=== PATIENT | male | born 1945 | race Caucasian/White ===

== ENCOUNTER 2020-08-12 05:43 | Observation (INO) | payer MEDICARE, SELFPAY ==
--- NOTE | ~2020-08-12 | XR_ITS ---
EXAMINATION: XR knee LT min 4V DATE: 08/12/2020 06:33 INDICATION: Left knee pain. Fall. TECHNIQUE: 4 views of left knee were obtained. COMPARISON: None. FINDINGS: Bone alignment is normal. No fracture. There is mild tricompartmental osteoarthritis. No kn ee joint effusion. There are loose bodies in the knee joint. There is anterior knee soft tissue swell ing. IMPRESSION: 1. Mild left knee osteoarthritis. 2. Left knee joint loose bodies. 3. Anterior knee soft tissue swelling. Reviewed, dictated and finalized at location A. DISEASE MANAGEMENT
--- NOTE | ~2020-08-12 | CT_ITS ---
EXAMINATION: CT brain wo con DATE: 08/12/2020 06:41 INDICATION: Frequent falls. TECHNIQUE: Computed tomography (CT) of the head was performed without intravenous contrast. The mA wa s adjusted according to patient size. Iterative reconstruction technique was employed. The dose-lengt h product was 681.00 mGy-cm. COMPARISON: Head CT 08/19/2018 FINDINGS: There are scattered areas of low attenuation in the cerebral white matter. There is no intr acranial hemorrhage, acute infarction, or abnormal intracranial mass lesion. The ventricles are warner l in size. There is mild mucosal thickening in the ethmoid sinuses. There are likely changes of ocula r lens replacement surgeries. The mastoid air cells are normal. IMPRESSION: 1. Mild nonspecific cerebral white matter disease, which likely represents chronic small vessel ische laurie disease. Reviewed, dictated and finalized at location A. CLERK IMPRESSION: 1. Mild nonspecific cerebral white matter disease, which likely represents chronometer tester beulah small vessel ischemic disease.
--- NOTE | ~2020-08-12 | US_ITS ---
EXAMINATION: US art doppler w press TRISHA MASCORRO EXAM DATE: 08/13/2020 09:50 INDICATION: weak pulse, left leg pain. TECHNIQUE: Segmental pressures and plethysmographic and Doppler waveforms of the brachial and lower e xtremity arteries were obtained. There is no prior study for comparison. FINDINGS: Right and left brachial artery pressures of 175 mm Hg and 174 mm Hg, respectively, are concordant (no rmal difference <= 30 mmHg). RIGHT LEG: The ankle-brachial index (ANGELA) is 0.96 (normal >= 0.9-1). The great toe-brachial index (TBI) is 0.49 (normal >= 0.65). The lower extremity ratios, segmental pressure gradients as follows; Dorsalis pedis: 0.96 (168 mmHg). Posterior tibial: Could not obtain ( mmHg). (Normal gradients <= 20-30 mmHg between adjacent levels on the same leg or the same levels on the two legs). Arterial waveforms are monophasic posterior tibial, otherwi se biphasic. LEFT LEG: The ankle-brachial index (ANGELA) is 0.79 (normal >= 0.9-1). The great toe-brachial index (TBI) is 0.36 (normal >= 0.65). The lower extremity ratios, segmental pressure gradients as follows; Dorsalis pedis: 0.79 (139 mmHg). Posterior tibial: 0.72 (126 mmHg). (Normal gradients <= 20-30 mmHg between adjacent levels on the same leg or the same levels on the two legs). Arterial waveforms are biphasic common femoral, monophasic below. IMPRESSION: 1. Right ankle-brachial index 0.96, normal. 2. Left ankle-brachial index 0.79, mildly decreased. 3. Segmental pressures as above. Reviewed, dictated and finalized at location A. STANT MERCHANDISER
--- NOTE | ~2020-08-12 | US_ITS ---
EXAMINATION: US venous doppler LE EXAM DATE: 08/13/2020 09:49 INDICATION: Edema to the left lower extremity. Left leg pain. TECHNIQUE: Multiple grayscale, color flow and Doppler images of the lower extremity deep venous syste ms bilaterally were obtained and reviewed. There is no prior study for comparison. FINDINGS: RIGHT SIDE Common femoral: --------Nonocclusive thrombus. Profunda femoral: ------- Normal. Femoral: Normal. Popliteal: Normal. Posterior tibial: --------- Normal. Peroneal: Normal. Gastrocnemius: Not visualized. Soleus: Not visualized. Greater saphenous: ----- Normal. Lesser saphenous: ------ Not visualized. LEFT SIDE Common femoral: -------- Normal. Profunda femoral: ------- Normal. Femoral: Normal. Popliteal: Normal. Posterior tibial: --------- Normal. Peroneal: Normal. Gastrocnemius: Not visualized. Soleus: Not visualized. Greater saphenous: ----- Normal. Lesser saphenous: ------ Not visualized. IMPRESSION: 1. Positive for right common femoral nonocclusive DVT. 2. No left DVT. I discussed this case with 3rd medical nurse caring for patient, Sj at 08/13/2020 10:03 PRODUCT MANUFACTURING PROFESSIONAL Reviewed, dictated and finalized at location A. UCT MANUFACTURING PROFESSIONAL IMPRESSION: 1. Positive for right common femoral nonocclusive DVT. 2. No left DVT. I discussed this case with 3rd medical nurse caring for patient, Sj at 2019 10:03 PRODUCT MANUFACTURING PROFESSIONAL
--- NOTE | 2020-08-12 05:39 | ED.EXTPRO ---
HPI - Extremity Problem General Chief complaint: Fall Stated complaint: knee pain Source: patient and EMS Mode of arrival: EMS Limitations: no limitations History of Present Illness HPI Narrative: Patient is a 75-year-old male who presents for evaluation of fall with left knee injury. Patient with intermittent weakness over the past several weeks, more frequent falls. Patient fell yesterday and has had knee swelling and pain since the fall. Difficulty moving the knee and difficulty ambulating due to left knee pain. Pain is dull, aching in nature. Patient denies hip pain. He denies head injury or neck pain. He denies chest pain, palpitations, shortness of breath. No recent fever. No recent medication changes. Per EMS personnel, patient and live in very poor living conditions, grandmother called to the house multiple times for the patient's falls, have inquired about having home health to help with patient. At this point, seems a independent living would not be safest option for patient per EMS. Patient denies any redness overlying the knee space. He denies history of gout. Related Data Home Medications Medication Instructions Recorded Confirmed atorvastatin 08/12/20 carbidopa-levodopa tablet 08/12/20 metoprolol succinate PO 08/12/20 primidone 08/12/20 ropinirole mg 08/12/20 venlafaxine mg PO 08/12/20 Allergies Allergy/AdvReac Type Severity Reaction Status Date / Time No Known Allergies Allergy Unknown Verified 08/12/20 07:24 Review of Systems Review of Systems: Narrative: CONSTITUTIONAL: Denies fever, chills, or sweats. EYES: Denies visual changes ENT: Denies rhinorrhea, congestion, sore throat, or otalgia. CARDIOVASCULAR: Denies chest pain, palpitations, or edema. RESPIRATORY: Denies cough or dyspnea. GASTROINTESTINAL: Denies abdominal pain, nausea, vomiting, or diarrhea. GENITOURINARY: Denies dysuria or hematuria. SKIN: Denies rash or itching. MUSCULOSKELETAL: Denies back pain, reports left knee pain NEUROLOGIC: Denies headache, numbness, or weakness. [facility] Past Medical History Medical History (Updated 08/12/20 @ 06:51 by Lillie Armijo MD) Anxiety Depression Diverticulitis GI bleed Heart attack Hyperlipidemia Hypertension Malignant melanoma Surgical History Surgical History (Updated 08/12/20 @ 05:54 by Lillie Armijo MD) H/O cardiac catheterization History of tonsillectomy Social History Social History (Updated 08/12/20 @ 05:54 by Lillie Armijo MD) Smoking status: Former smoker Alcohol intake: never Substance use: never Living arrangements: with family Gender identity (if verbalized by the patient): Male Exam Narrative: Exam Narrative: GENERAL: Awake, alert, conversant, somewhat disheveled appearing HEAD: Normocephalic, atraumatic. EYES: PERRLA and EOMI. ENT: Nares clear, no rhinorrhea or epistaxis. Mucous membranes moist. NECK: Supple. CHEST: No respiratory distress, breathing even and non labored HEART: Regular rate, sinus rhythm ABDOMEN:Non distended, non tender EXTREMITIES: Decreased range of motion in the left knee due to pain. There is quite significant edema and effusion present. Mild lateral left knee ecchymosis. Mild tenderness overlying the patella. No erythema. No blistering or areas of drainage. No wounds. Patient has limited flexion due to edema, can complete active extension without limitation. Pelvis stable to anterior lateral compression. There is pain with internal and external rotation of the left knee. Negative anterior drawer sign. SKIN: Warm, dry, no rash. NEURO:No focal deficits. Alert and oriented x3 Course Vital Signs Vital signs: Vital Signs Temperature 36.3 C L 08/12/20 05:43 Pulse Rate 71 08/12/20 05:43 Respiratory Rate 14 08/12/20 05:43 Blood Pressure 149/86 H 08/12/20 05:43 Pulse Oximetry 97 08/12/20 05:43 Temperature 36.3 C L 08/12/20 05:43 Pulse Rate 68 08/12/20 06:57 Respirato
[2020-08-12 05:43] VITALS: BP 149/86; PULSE 71; RESP 14; TEMP 36.3; O2SAT 97
--- NOTE | 2020-08-12 05:48 | ECG_ITS ---
Measurements Intervals [place] Rate: 71 P: 56 [place]: 214 QRS: -68 QRSD: 134 T: -10 QT: 429 QTc: 468 Interpretive Statements SINUS RHYTHM WITH FIRST DEGREE AV BLOCK LEFT BUNDLE BRANCH BLOCK BASELINE ARTIFACT- I, II, AVR, AVF, V1-V2 ABNORMAL ECG Electronically Signed On 08-12-2020 8:01:02 SIDEROGRAPHER by Dom Murphy D.O.
[2020-08-12 06:17] LABS: Basophils Absolute Auto 0.1 K/mm3 (0.0-0.1); Basophils Percent Auto 0.6 % (0.2-1.2); Eosinophils Absolute Auto 0.3 K/mm3 (0-0.3); Eosinophils Percent Auto 4.1 % (0-4.4); Hemoglobin 10.3 g/dL (14.0-18.0); Immature Granulocyte Absolute 0.04 K/mm3 (0.00-0.031); Immature Granulocyte Percent A 0.5 % (0-0.5); Lymphocytes Absolute Auto 1.27 K/mm3 (0.9-3.2); Lymphocytes Percent Auto 16.1 % (18.3-44.2); Mean Corpuscular HGB Conc 31.2 g/dl (32-36); Mean Corpuscular Hemoglobin 31.5 pg (26-34); Mean Corpuscular Volume 100.9 fl (80-100); Mean Platelet Volume 10.2 fl (7.4-10.4); Monocytes Absolute Auto 0.5 K/mm3 (0.1-0.6); Monocytes Percent Auto 6.2 % (2.6-8.5); Neutrophils Absolute Auto 5.7 K/mm3 (1.3-6.7); Neutrophils Percent Auto 72.5 % (45.5-73.1); Platelet Count Result 221 k/mm3 (150-375); Red Blood Count 3.27 M/mm3 (4.6-6.20); Red Cell Distribution Width 13.7 % (11.5-14.5); White Blood Count 7.9 K/mm3 (4.5-10.0)
[2020-08-12 06:20] VITALS: BP 152/70; PULSE 67; RESP 18; O2SAT 99
--- NOTE | 2020-08-12 06:23 | PC.NURSE ---
pt to CT via stretcher
[2020-08-12 06:31] LABS: Anion Gap 8 mmol/L (8-16); Blood Urea Nitrogen 33 mg/dL (9-20); Calcium 8.4 mg/dL (8.4-10.2); Carbon Dioxide 28 mmol/L (22-30); Chloride 109 mmol/L (98-107); Estimated Glomerular Filt Rate 49; Glucose 115 mg/dL (75-110); Potassium 4.5 mmol/L (3.4-5.0); Sodium 145 mmol/L (137-145)
[2020-08-12 06:32] LABS: Prothrombin Time 13.8 Seconds (11.1-14.7)
[2020-08-12 06:33] LABS: Partial Thromboplastin Time 32.5 SECONDS (22.3-36.8)
[2020-08-12 06:57] VITALS: BP 125/65; PULSE 68; RESP 18; O2SAT 99
[2020-08-12 07:49] LABS: Add Urine Microscopic? YES; Appearance Urine Clear (Clear); Bilirubin Urine Negative (Negative); Blood Urine Negative (Negative); Color Urine Yellow (Yellow); Glucose Urine UA Negative (Negative); Ketones Urine Negative (Negative); Leukocyte Esterase Ur Negative LEU/UL (Negative); Nitrate Urine Negative (Negative); Protein Urine 1+ mg/dL (Negative); Specific Grav Ur 1.024 (1.001-1.035); Squamous Epithelial Cell Urine Rare /hpf (Few); Urobilinogen Urine Negative mg/dL (<2.0); WBC Urine 0-3 /hpf
--- NOTE | 2020-08-12 08:35 | PCCCNOTE ---
Addendum entered by Pearl Cordova RN 08/12/20 10:24: Faxed auth request to [facility] that included PT youngal. Faxed referrals to [facility] and [facility]. Original Note: Spoke to pt and his about rehab to help him get stronger. Pt choose [facility] and [facility] to send request for skilled care. PT coming in room to eval and make recommendations.
[2020-08-12 09:25] VITALS: BP 177/80; PULSE 72; RESP 20; TEMP 36.7; O2SAT 97
--- NOTE | 2020-08-12 11:23 | ADMGEN ---
This patient, Saad Yarbrough, was admitted to [facility] Surg Room 317-01. Patient/family oriented to hospital policies and general routines including ID bracelet, bed and alarms, visiting hours, pain management, procedures, bathroom and other care routines, personal items, smoking policy, room service/diet, and visiting hours. Information on how to activate the Rapid Response Team has been discussed. Patient/Family are encouraged to report perceived risks to care and to ask questions if they do not understand what they are told or what they should do.
[2020-08-12 14:00] VITALS: BP 112/55; PULSE 67; RESP 22; TEMP 37.1; O2SAT 96
--- NOTE | 2020-08-12 15:55 | PM.IMHP ---
H&P: HPI History of Present Illness Date/Time: 08/12/20 15:55 Chief complaint: traumatic left knee effusion,frequent falls Narrative: Saad Yarbrough is a 75 year old male Who has a history of Parkinson's. The patient lives with his in independent Living. The patient stated that he has had frequent falls recently. He feels like his legs give out when he tries to walk at times. He said typically happens when he gets up in the middle night goes to the bathroom. The patient stated he has been having a pain in his left calf. The patient told me that he told his primary care doctor and the primary care doctor told him to get some [id number] lidocaine patches but they did help for very long. A CT of the brain was performed in the emergency room it was read as mild nonspecific cerebral white matter disease, which likely represents chronic small vessel ischemic disease. X-ray of the left knee was read as mild left knee osteoarthritis. Left knee joint loose bodies. Anterior knee soft tissue swelling. Approximately 10 cc of blood was drained from the left knee hematoma. The patient has had intermittent periods of weakness over the last couple weeks. He denies hitting his head he thinks that he landed on his left knee. The patient does see the neurologist here for his Parkinson's. He states that he has been taking his Parkinson's medication as prescribed. H&H is 10.3 and 33.0 with macrocytic anemia. Creatinine 1.40. Patient is admitted as observation date of service 08/12/2020 Review of Systems Review of Systems: All systems reviewed & are unremarkable except as noted in HPI and below Constitutional: Constitutional: Reports as per HPI and Reports no additional constitutional complaints Eyes: Eyes: Reports as per HPI and Reports no additional eye complaints ENT: Reports system reviewed and no additional complaints, except as documented and Reports Normal hearing present Cardiovascular: Cardiovascular: Reports no additional cardiovascular complaints Respiratory: Respiratory: Reports no additional respiratory complaints and Reports no additional respiratory complaints Gastrointestinal: Gastrointestinal: Reports as per HPI and Reports no additional gastrointestinal complaints Musculoskeletal: Musculoskeletal: Reports no additional musculoskeletal complaints Integumentary/Breasts: Skin/Breast: Reports system reviewed and no additional complaints, except as docu and Reports as per HPI Neurologic: Reports system reviewed and no additional complaints, except as documented, Reports as per HPI and Reports Normal hearing present Psychiatric: Psychiatric: Reports no additional psychiatric complaints and Reports as per HPI Endocrine: Endocrine: Reports no additional endocrine complaints Hematologic/Lymphatic: Hematologic/Lymphatic: Reports no additional hematologic/lymphatic complaints Allergic/Immunologic: Allergic/Immunologic: Reports no additional allergic/immunologic complaints PMFSH Past Medical History Medical History (Updated 08/12/20 @ 16:33 by Renee David NP) Anemia Anxiety Anxiety and depression Depression Diverticulitis GI bleed Heart attack History of myocardial infarction History of poliomyelitis Hyperlipidemia Hypertension Macular degeneration disease Malignant melanoma Parkinsons Surgical History Surgical History (Updated 08/12/20 @ 16:06 by Renee David NP) H/O cardiac catheterization H/O heart artery stent x2 History of colonoscopy History of tonsillectomy Family History Family History Mother CHF (congestive heart failure) Father Malignant neoplasm of prostate Leukemia Social History Social History (Updated 08/12/20 @ 16:08 by Renee David NP) Social History: the patient used to smoke until he met his and then he quit. He used to smoke anywhere from a pack to half a pack a day but quit approximately 14 years a
--- NOTE | 2020-08-12 19:41 | ECG_ITS ---
Measurements Intervals [place] Rate: 73 P: 51 [place]: 248 QRS: -60 QRSD: 130 T: 12 QT: 414 QTc: 458 Interpretive Statements SINUS RHYTHM WITH FIRST DEGREE AV BLOCK LEFT AXIS DEVIATION LEFT BUNDLE BRANCH BLOCK ABNORMAL ECG Electronically Signed On 08-13-2020 8:42:11 CONVERTING TECHNICIAN by Dom Murphy D.O.
[2020-08-12] MEDS: rOPINIRole HCL 1 MG TABLET 4 MG PO (20:53)
[2020-08-12] MEDS: PRIMIDONE 250 MG TABLET 500 MG PO (20:54)
[2020-08-12 22:00] VITALS: BP 144/65; PULSE 72; RESP 20; TEMP 37.1; O2SAT 94
--- NOTE | 2020-08-12 22:51 | PC.NURSE ---
Patient moved to room 305. Report given to Pamela ROBLES and all questions answered. Handed off care to Pamela ROBLES at this time.
[2020-08-13 00:53] LABS: SARS-CoV-2 RNA PCR Negative
[2020-08-13] MEDS: ACETAMINOPHEN 325 MG TABLET 650 MG PO (02:49)
[2020-08-13 02:50] VITALS: BMI 36.8
[2020-08-13 06:00] VITALS: BP 153/68; PULSE 83; RESP 18; TEMP 36.9; O2SAT 96
[2020-08-13 06:24] LABS: Basophils Percent Auto 0.4 % (0.2-1.2); Eosinophils Absolute Auto 0.3 K/mm3 (0-0.3); Eosinophils Percent Auto 4.3 % (0-4.4); Hematocrit 27.3 % (42.0-52.0); Hemoglobin 8.8 g/dL (14.0-18.0); Immature Granulocyte Absolute 0.04 K/mm3 (0.00-0.031); Immature Granulocyte Percent A 0.5 % (0-0.5); Lymphocytes Absolute Auto 1.87 K/mm3 (0.9-3.2); Lymphocytes Percent Auto 25.1 % (18.3-44.2); Mean Corpuscular HGB Conc 32.2 g/dl (32-36); Mean Corpuscular Hemoglobin 30.9 pg (26-34); Mean Corpuscular Volume 95.8 fl (80-100); Mean Platelet Volume 10.7 fl (7.4-10.4); Monocytes Absolute Auto 0.6 K/mm3 (0.1-0.6); Monocytes Percent Auto 8.4 % (2.6-8.5); Neutrophils Absolute Auto 4.6 K/mm3 (1.3-6.7); Neutrophils Percent Auto 61.3 % (45.5-73.1); Platelet Count Result 221 k/mm3 (150-375); Red Blood Count 2.85 M/mm3 (4.6-6.20); Red Cell Distribution Width 13.3 % (11.5-14.5); White Blood Count 7.5 K/mm3 (4.5-10.0)
[2020-08-13 06:38] LABS: Lactate Dehydrogenase 408 U/L (313-618); Magnesium 1.9 mg/dL (1.6-2.3)
[2020-08-13 06:39] LABS: Lactic Acid Reflex 0.6 mmol/L (0.7-2.1)
[2020-08-13 07:04] LABS: Iron 56 ug/dL (49-181)
[2020-08-13 07:25] LABS: Percent Iron Saturation 28 % (20-50)
[2020-08-13 07:44] LABS: Folic Acid 6.2 ng/mL (2.76->20)
--- NOTE | 2020-08-13 08:42 | WPDNEURCNPN ---
Assessment and Plan Assessment and plan (1) Parkinsons: Code(s): G20 - Parkinson's disease Status: Chronic Additional Plan planned is to continue the medication as such for the essential tremor and also get him evaluated for the physical therapy in addition to check his B12 level because of the macrocytic anemia to rule out the possibility of myelopathy Consult date: 08/13/20 Time Seen: 08:45 HPI: Saad Yarbrough is a 75 year old male Has been admitted to the hospital with the ongoing diagnosis of Parkinson's disease in addition to the complaints of the frequent falls .and his description as if lower extremities are giving out particularly happening at the middle of the night when he tries to go to the bathroom additionally he has been experiencing pain in his calf. initial CT scan of the brain in the emergency room was only compatible with nonspecific white matter disease but no evidence of acute stroke or bleed, x-rays of the left knee revealed arthritis with anterior left knee joint tissue swelling 10cc of blood was drained from the left knee hematoma he has been taking his medication regularly for tremors he has also been documented to have macrocytic anemia he does have ongoing history of anxiety with depression, diverticulitis ,history of myocardial infarction and history of poliomyelitis in the past in addition to macular degeneration Review of Systems Review of Systems: All systems reviewed & are unremarkable except as noted in HPI and below PMFSH Past Medical History Medical History Anemia Anxiety Anxiety and depression Depression Diverticulitis GI bleed Heart attack History of myocardial infarction History of poliomyelitis Hyperlipidemia Hypertension Macular degeneration disease Malignant melanoma Parkinsons Surgical History Surgical History H/O cardiac catheterization H/O heart artery stent x2 History of colonoscopy History of tonsillectomy Family History Family History Mother CHF (congestive heart failure) Father Malignant neoplasm of prostate Leukemia Social History Social History (Updated 08/12/20 @ 16:08 by Renee David NP) Social History: the patient used to smoke until he met his and then he quit. He used to smoke anywhere from a pack to half a pack a day but quit approximately 14 years ago. He rarely drinks. He quit drinking about the same did quit smoking. He is and his is a durable power trade mark attorney for healthcare. He had 1 biological child a son who was murdered at the age of 21 related to drug activity. 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 He desires to be a full code. His is the durable power trade mark attorney Smoking status: Former smoker Tobacco type: cigarettes Second hand tobacco smoke exposure: No Alcohol intake: former Substance use: former Substance use type: former substance user and marijuana Other substance usage details: no drinking or smoking in 14 yrs Living arrangements: with family Occupation/Education: retired Gender identity (if verbalized by the patient): Male Spiritual care concerns: No Meds Home Medications and Allergies Home Medications Medication Instructions Recorded Confirmed Type atorvastatin 40 mg PO DAILY 08/12/20 08/12/20 History metoprolol succinate 25 mg PO DAILY 08/12/20 08/12/20 History primidone 500 mg PO QID 08/12/20 08/12/20 History ropinirole 4 mg PO HS 08/12/20 08/12/20 History Allergies Allergy/AdvReac Type Severity Reaction Status Date / Time No Known Allergies Allergy Unknown Verified 08/12/20 07:24 Vital Signs Vital Signs - 24 hr 08/12/20 09:25 08/12/20 14:00 08/12/20 22:00 Temperature 36.7 C 37.1 C 37.1 C Pulse Rate 72 67 72 Respiratory Rate 20 22 H 20 Blood Pressure 177/80 H 112/55 L 144/65 H Pu
[2020-08-13 09:53] VITALS: PULSE 83
[2020-08-13] MEDS: METOPROLOL SUCCINATE EXT REL 25 MG TABCR PO (09:53)
[2020-08-13] MEDS: PRIMIDONE 250 MG TABLET 500 MG PO ×4 (09:53→20:25)
--- NOTE | 2020-08-13 10:57 | PM.IMPN ---
Progress Note: A&P Assessment and Plan (1) DVT (deep venous thrombosis): Code(s): I82.409 - Acute embolism and thrombosis of unspecified deep veins of unspecified lower extremity Status: Acute Assessment and Plan: Venous doppler showed right common femoral nonocclusive DVT. Begin therapeutic Lovenox. Transition to oral anticoagulant hopefully tomorrow. Will ask care coordination for pricing. Patient is at high risk for fall, however given location of DVT, anticoagulation is necessary. Discussed risks and benefits and patient understands and agrees. He will be closely monitored while inpatient and upon discharge at SNF. Fall precautions in place (2) Frequent falls: Code(s): R29.6 - Repeated falls Status: Acute Assessment and Plan: Patient reports falling at home several times. He had been having leg pain and was not getting around as well. May also be secondary to Parkinson's. Appreciate PT/OT evaluation. Care coordination is following for possible SNF placement. Fall precautions (3) Effusion of left knee joint: Code(s): M25.462 - Effusion, left knee Status: Acute Assessment and Plan: Patient reports fall on knee. He had aspiration of left knee in ED which yielded 5 ml of blood fluid, consistent with hemarthrosis. Left knee x-ray shows mild left knee OA and joint loose bodies with anterior soft tissue swelling. He has good range of motion and minimal tenderness to palpation, making septic joint unlikely. Analgesics as needed for pain Monitor area closely (4) Hypertension: Code(s): I10 - Essential (primary) hypertension Status: Chronic Assessment and Plan: Blood pressure evaluated today and is stable at 153/68. Continue with metoprolol (5) Parkinsons: Code(s): G20 - Parkinson's disease Status: Chronic Assessment and Plan: May be contributing to his falls. Neurology was consulted for assistance with managing his Parkinson's disease. No changes have been made to regimen. Continue carbidopa/levodopa, ropinirole and primidone (6) Anxiety and depression: Code(s): F41.9 - Anxiety disorder, unspecified; F32.9 - Major depressive disorder, single episode, unspecified Status: Chronic Assessment and Plan: Mood is stable at this time continue with venlafaxine (7) Macrocytic anemia: Code(s): D53.9 - Nutritional anemia, unspecified Status: Acute Assessment and Plan: Appears chronic on review of prior labs. H&H is stable. No signs of active bleeding. Vital signs stable. Iron, B12, and folate are within normal limits. Monitor H&H closely and transfuse as needed. Subjective Date/time seen: 08/13/20 10:57 Interval history: Date of service: 08/13/2020 Saad Yarbrough is a 75 year old male with a history of parkinson's disease, and CAD who is seen in follow up for falls and lower extremity discomfort. He reports that he is feeling better today. He is ambulating with assistance and feels that he is steady on his feet. He denies pain in his lower extremities. He denies pain of his left knee. Denies dizziness or lightheadedness. He has been eating and drinking well. He denies shortness of breath, cough, chest pain, or palpitations. No nausea, vomiting, fever, chills. He has been urinating without difficulty. Review of Systems Review of Systems: All systems reviewed & are unremarkable except as noted in HPI and below Exam Narrative: Exam Narrative: Mr. Yarbrough is a well-nourished, well-appearing 75-year-old male who is sitting up in bed eating breakfast. He appears comfortable and is in NARD. HR 83, BP 153/68, RR 18, T 98.4, 96% on room air Neuro: awake, alert and oriented x4, speech clear, no focal neuro deficits noted, intention tremor noted HEENMT: normocephalic, atraumatic, EOMI, sclerae anicteric, moist oral mucosa, tongue midline, nares patent
[2020-08-13] MEDS: ENOXAPARIN 120 MG/0.8 ML SYRINGE 105 MG SUB-Q ×2 (11:56→20:25)
[2020-08-13 14:00] VITALS: BP 146/73; PULSE 83; RESP 20; TEMP 36.9; O2SAT 93
[2020-08-13 15:55] LABS: Glucose Point of Care 145 (65-105)
[2020-08-13] MEDS: rOPINIRole HCL 1 MG TABLET 4 MG PO (20:25)
[2020-08-13 22:00] VITALS: BP 156/58; PULSE 80; RESP 20; TEMP 37.1; O2SAT 93
[2020-08-14 06:00] VITALS: BP 142/66; PULSE 83; RESP 20; TEMP 37.4; O2SAT 95
[2020-08-14] MEDS: ENOXAPARIN 120 MG/0.8 ML SYRINGE 105 MG SUB-Q (08:18)
[2020-08-14 08:19] VITALS: PULSE 80
[2020-08-14 08:19] LABS: Hematocrit 29.1 % (42.0-52.0); Hemoglobin 9.7 g/dL (14.0-18.0)
[2020-08-14] MEDS: METOPROLOL SUCCINATE EXT REL 25 MG TABCR PO (08:19)
[2020-08-14] MEDS: PRIMIDONE 250 MG TABLET 500 MG PO ×2 (08:19→12:37)
[2020-08-14 08:28] LABS: Anion Gap 10 mmol/L (8-16); Blood Urea Nitrogen 18 mg/dL (9-20); Calcium 8.7 mg/dL (8.4-10.2); Carbon Dioxide 25 mmol/L (22-30); Chloride 105 mmol/L (98-107); Estimated CRCL calculation 54 ml/min; Estimated Glomerular Filt Rate 59; Glucose 102 mg/dL (75-110); Sodium 140 mmol/L (137-145)
[2020-08-14] MEDS: ACETAMINOPHEN 325 MG TABLET 650 MG PO (12:40)
--- NOTE | 2020-08-14 13:31 | PM.DS ---
DS: Admitting Diagnosis Admitting Diagnosis Admitting Diagnosis: traumatic left knee effusion,frequent falls DS: Discharge Diagnosis Discharge Diagnosis (1) DVT (deep venous thrombosis): Code(s): I82.409 - Acute embolism and thrombosis of unspecified deep veins of unspecified lower extremity Status: Acute Assessment and Plan: Venous doppler showed right common femoral nonocclusive DVT. He was started on therapeutic Lovenox and transitioned to Eliquis. Patient is at risk for falls, however given location of DVT, anticoagulation is necessary. Discussed risks and benefits and patient understands and agrees. He will be closely monitored while inpatient and upon discharge at SNF. Fall precautions discussed. Informed patients PCP Dr. Quezada of these findings and plan for anticoagulation. (2) Frequent falls: Code(s): R29.6 - Repeated falls Status: Acute Assessment and Plan: Had been having recent falls at home, probably multifactorial due to overall deconditioning and Parkinson's disease. He also had been having leg pain and had a hard time ambulating. He was evaluated by PT/OT and was recommended he continue therapy at SNF. He will go to [facility]. (3) Effusion of left knee joint: Code(s): M25.462 - Effusion, left knee Status: Acute Assessment and Plan: Patient reports fall onto left knee. He had left knee effusion with ecchymoses. Left knee x-ray showed mild left knee OA and joint loose bodies with anterior soft tissue swelling. Aspiration of left knee performed which yielded 20 ml of bloody fluid, consistent with hemarthrosis. He had good range of motion and minimal pain, making septic joint unlikely. (4) Hypertension: Code(s): I10 - Essential (primary) hypertension Status: Chronic Assessment and Plan: Blood pressure evaluated and remained well controlled. Continue with metoprolol (5) Parkinsons: Code(s): G20 - Parkinson's disease Status: Chronic Assessment and Plan: Neurology was consulted for assistance with managing his Parkinson's disease. No changes were felt to be required in his medication regimen. Continue carbidopa/levodopa, ropinirole and primidone. He will need outpatient follow up with his neurologist. (6) Anxiety and depression: Code(s): F41.9 - Anxiety disorder, unspecified; F32.9 - Major depressive disorder, single episode, unspecified Status: Chronic Assessment and Plan: Mood remained stable. Continue with venlafaxine (7) Macrocytic anemia: Code(s): D53.9 - Nutritional anemia, unspecified Status: Acute Assessment and Plan: Appears chronic on review of prior labs. H&H remained stable. No evidence of active bleeding. Vital signs stable. Iron, B12, and folate are within normal limits. DS: Summary Hospital Course Reason for hospitalization: Fall Hospital Course: Date of admission: 08/12/2020 Date of discharge: 08/14/2020 Saad Yarbrough is a 75-year-old male with a history of HTN, HLD, CAD, and Parkinson's disease who presented to the emergency department on 08/12/2020 with complaints of knee pain after a fall. He had complained of intermittent weakness over the past several weeks with more frequent falls. At presentation, vital signs stable, H&H mildly decreased, BUN and creatinine mildly elevated with additional electrolytes stable, left knee x-ray showed mild left OA and anterior soft tissue swelling, and head CT with no acute findings. He was admitted to the hospitalist service for further evaluation and management. Please see above for further details. He was initiated on Eliquis. Risks versus benefits were discussed with him at length and he understood and agreed. He will continue therapy at SNF. Given his overall improvement, he was determined to no longer require inpatient care and was felt to be stable for discharge. We discussed worrisome
[2020-08-14 13:42] VITALS: TEMP 36.6
== END 2020-08-14 14:31 ==
LOC: ANHED 06:29 → ANH3MEDSUR 08:39
PROVIDERS: Nurse Practitioner; Physician Assistant; Admitting Provider Hospitalist; Emergency Provider Emergency Medicine; PCP Internal Medicine; Visit Provider Internal Medicine
DX: M25.462 Effusion, left knee (principal); R29.6 Repeated falls; I82.411 Acute embolism and thrombosis of right femoral vein; Z20.828 Contact with and (suspected) exposure to other viral communicable diseases; G20 Parkinson's disease; R60.9 Edema, unspecified; D53.9 Nutritional anemia, unspecified; M17.12 Unilateral primary osteoarthritis, left knee; M79.605 Pain in left leg; H35.30 Unspecified macular degeneration; I25.2 Old myocardial infarction; I10 Essential (primary) hypertension; F41.8 Other specified anxiety disorders; E78.5 Hyperlipidemia, unspecified; Z85.820 Personal history of malignant melanoma of skin; Z95.5 Presence of coronary angioplasty implant and graft; Z87.891 Personal history of nicotine dependence; M79.604 Pain in right leg; M79.89 Other specified soft tissue disorders
CPT/HCPCS: 20610; 36415; 51701; 70450; 73564; 80048; 81001; 82607; 82728; 82746; 83540; 83550; 83605; 83615; 83735; 84443; 85014; 85018; 85025; 85610; 85730; 87635; 93005; 93923; 93970; 96372; 97110; 97116; 97162; 97166; 97530; 97535; 99285; A9270; C9803; G0378; J1650; U0003

== ENCOUNTER 2020-08-21 18:03 | Emergency (ER) | payer MEDICARE, SELFPAY ==
[2020-08-21] VITALS (28 sets, daily range): BP systolic 129–171; BP diastolic 61–105; PULSE 79–109; RESP 13–29; TEMP 36.7; O2SAT 96–99
--- NOTE | ~2020-08-21 | XR_ITS ---
EXAMINATION: XR knee LT min 4V DATE: 08/21/2020 19:29 INDICATION: Left knee swelling and wounds post fall 2 weeks prior TECHNIQUE: Anteroposterior, 2 oblique and crosstable lateral views of the left knee were obtained COMPARISON: None. FINDINGS: Alignment is normal. No fracture. Mild patellofemoral osteoarthritis with mild patellofemoral joint space narrowing and tiny marginal osteophytes. There is prominent prepatellar soft tissue swelling. N o definitive knee joint effusion. No soft tissue gas or radiopaque foreign bodies. IMPRESSION: 1. Prominent prepatellar soft tissue swelling which could be related to either contusion/hematoma or cellulitis. 2. No acute osseous abnormality or definitive left knee joint effusion. Reviewed, dictated and finalized at [facility]. GY DERIVATIVES TRADER
--- NOTE | 2020-08-21 19:05 | ED.EXTPRO ---
HPI - Extremity Problem General Chief complaint: Extremity Problem,Nontraumatic Stated complaint: left knee swelling, lethargic Time Seen by Provider: 08/21/20 19:04 Source: patient Mode of arrival: ambulatory Limitations: no limitations History of Present Illness HPI Narrative: Patient is a 75-year-old gentleman with a history of hypertension, recently diagnosed with a DVT, on anticoagulation, who presents from rehabilitation facility for evaluation of possible skin infection. Patient states that some of the caregivers at the facility where he resides were concerned regarding the redness of the scabs on the left knee. Patient has a history of frequent falls, was noted to have a DVT and hemarthrosis at his last admission, was recently discharged to rehab facility. Patient denies fever, chills, pain. He is unsure if wound care has been checking on him at the facility. He denies any pain with movement. He denies any discharge from the knee. Patient has been able to ambulate. Related Data Home Medications Medication Instructions Recorded Confirmed atorvastatin 40 mg PO DAILY 08/12/20 08/12/20 metoprolol succinate 25 mg PO DAILY 08/12/20 08/12/20 primidone 500 mg PO QID 08/12/20 08/12/20 ropinirole 4 mg PO HS 08/12/20 08/12/20 Allergies Allergy/AdvReac Type Severity Reaction Status Date / Time No Known Allergies Allergy Unknown Verified 08/12/20 07:24 Review of Systems Review of Systems: Narrative: CONSTITUTIONAL: Denies fever, chills, or sweats. EYES: Denies visual changes, redness, or discharge. ENT: Denies rhinorrhea, congestion, sore throat, or otalgia. CARDIOVASCULAR: Denies chest pain, palpitations, or edema. RESPIRATORY: Denies cough or dyspnea. GASTROINTESTINAL: Denies abdominal pain, nausea, vomiting, or diarrhea. GENITOURINARY: Denies dysuria or hematuria. SKIN: Reports redness, excoriated area over the left knee MUSCULOSKELETAL: Denies back pain, joint pain, or myalgia. NEUROLOGIC: Denies headache, numbness, or weakness. [facility] Past Medical History Medical History (Updated 08/21/20 @ 19:54 by Lillie Armijo MD) Anxiety Anxiety and depression Depression Diverticulitis DVT (deep venous thrombosis) GI bleed Heart attack History of myocardial infarction History of poliomyelitis Hyperlipidemia Hypertension Macrocytic anemia Macular degeneration disease Malignant melanoma Parkinsons Surgical History Surgical History H/O cardiac catheterization H/O heart artery stent x2 History of colonoscopy History of tonsillectomy Family History Family History Mother CHF (congestive heart failure) Father Malignant neoplasm of prostate Leukemia Social History Social History Social History: the patient used to smoke until he met his and then he quit. He used to smoke anywhere from a pack to half a pack a day but quit approximately 14 years ago. He rarely drinks. He quit drinking about the same did quit smoking. He is and his is a durable power consumer attorney for healthcare. He had 1 biological child a son who was murdered at the age of 21 related to drug activity. 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 He desires to be a full code. His is the durable power consumer attorney Smoking status: Former smoker Tobacco type: cigarettes Second hand tobacco smoke exposure: No Alcohol intake: former Substance use: former Substance use type: former substance user and marijuana Other substance usage details: no drinking or smoking in 14 yrs Gender identity (if verbalized by the patient): Male Spiritual care concerns: No Exam Narrative: Exam Narrative: GENERAL: Awake, alert, conversant HEAD: Normocephalic, atraumatic. EYES: PERRLA and EOMI. ENT: Nares clear, no rhinorrhea or epistaxis. Mucous membrane
[2020-08-21 20:11] LABS: Basophils Percent Auto 0.3 % (0.2-1.2); Eosinophils Absolute Auto 0.1 K/mm3 (0-0.3); Hemoglobin 9.1 g/dL (14.0-18.0); Immature Granulocyte Absolute 0.02 K/mm3 (0.00-0.031); Immature Granulocyte Percent A 0.3 % (0-0.5); Lymphocytes Absolute Auto 1.35 K/mm3 (0.9-3.2); Lymphocytes Percent Auto 21.1 % (18.3-44.2); Mean Corpuscular HGB Conc 31.4 g/dl (32-36); Mean Corpuscular Hemoglobin 31.6 pg (26-34); Mean Corpuscular Volume 100.7 fl (80-100); Mean Platelet Volume 10.2 fl (7.4-10.4); Monocytes Absolute Auto 0.6 K/mm3 (0.1-0.6); Monocytes Percent Auto 9.2 % (2.6-8.5); Neutrophils Absolute Auto 4.3 K/mm3 (1.3-6.7); Neutrophils Percent Auto 67.1 % (45.5-73.1); Platelet Count Result 345 k/mm3 (150-375); Red Blood Count 2.88 M/mm3 (4.6-6.20); Red Cell Distribution Width 13.7 % (11.5-14.5); White Blood Count 6.4 K/mm3 (4.5-10.0)
[2020-08-21 20:36] LABS: Erythrocyte Sedimentation Rate > 140 mm/hr (0-20)
[2020-08-21 20:47] LABS: Anion Gap 8 mmol/L (8-16); Blood Urea Nitrogen 38 mg/dL (9-20); CRP 8.4 mg/dL (<1.0); Calcium 8.5 mg/dL (8.4-10.2); Carbon Dioxide 31 mmol/L (22-30); Chloride 103 mmol/L (98-107); Estimated CRCL calculation 43 ml/min; Estimated Glomerular Filt Rate 45; Glucose 111 mg/dL (75-110); Potassium 4.3 mmol/L (3.4-5.0); Sodium 142 mmol/L (137-145)
--- NOTE | 2020-08-21 21:40 | PC.NURSE ---
RN attempted to contact [facility] @ [facility]. RN was hung up on.
--- NOTE | 2020-08-21 21:45 | PC.NURSE ---
RN attempted to call report, was placed on hold. NO Answer.
--- NOTE | 2020-08-21 21:53 | PC.NURSE ---
RN report given to KEZIA at [facility].
--- NOTE | 2020-08-21 22:17 | PC.NURSE ---
contacted [facility] to transfer patient back to [facility]. [phone]
[2020-08-22 00:14] VITALS: BP 134/86; PULSE 84; RESP 18; O2SAT 94
--- NOTE | 2020-08-22 00:14 | PC.NURSE ---
RN Report given to [facility].
--- NOTE | 2020-08-22 00:17 | PC.NURSE ---
[facility] has arrived
== END 2020-08-22 00:27 | disposition home or self-care (01) ==
PROVIDERS: Emergency Provider Emergency Medicine; PCP Internal Medicine
DX: L98.8 Other specified disorders of the skin and subcutaneous tissue (principal); I10 Essential (primary) hypertension; Z86.718 Personal history of other venous thrombosis and embolism; Z79.01 Long term (current) use of anticoagulants; I25.2 Old myocardial infarction; H35.30 Unspecified macular degeneration; Z85.820 Personal history of malignant melanoma of skin; G20 Parkinson's disease; Z95.5 Presence of coronary angioplasty implant and graft; Z87.891 Personal history of nicotine dependence; Z91.81 History of falling
CPT/HCPCS: 36415; 51701; 73564; 80048; 85025; 85652; 86140; 99283

== ENCOUNTER 2020-08-27 15:38 | Inpatient (IN) | payer MEDICARE, SELFPAY ==
--- NOTE | ~2020-08-27 | XR_ITS ---
EXAMINATION: XR chest 1V portable EXAM DATE: 08/28/2020 12:55 INDICATION: Fever. TECHNIQUE: Portable AP frontal chest x-ray was obtained. Comparison is made to prior examination from 08/27/2020. FINDINGS: Suspect developing small amount of patchy airspace disease, likely infection or edema. Naveen mmend considering/excluding COVID-19. Mild cardiomegaly. There are mild bony degenerative changes. IMPRESSION: Suspect developing small ill-defined acute airspace. Could be infection, possibly COVID- 19 pneumonia. Reviewed, dictated and finalized at location B. SUPERVISOR IMPRESSION: Suspect developing small ill-defined acute airspace. Could be infe ction, possibly COVID-19 pneumonia.
--- NOTE | ~2020-08-27 | US_ITS ---
EXAMINATION: US renal BI DATE: 08/31/2020 14:55 INDICATION: Acute renal insufficiency TECHNIQUE: Multiple ultrasound grayscale images of the kidneys were obtained. COMPARISON: CT dated 08/07/2013 FINDINGS: The right kidney measures 10.4 x 5.5 x 6.2 cm. The left kidney measures 10.6 x 5.7 x 5.2 cm. The kidn eys demonstrate normal echogenicity. 3.8 cm anechoic right renal cyst. There is no hydronephrosis in either kidney. No stones identified. There appears to be some hypoechoic debris measuring up to 7 mm in thickness and with smooth margins along the dependent wall of the bladder. No evident internal fl ow on color Doppler to suggest neoplasm. IMPRESSION: 1. Normal kidneys without hydronephrosis. 2. Small amount of hypoechoic debris versus less likely wall thickening along the posterior inferior wall of the bladder. Correlate with urinalysis and if indicated cystoscopy could be obtained for furt her evaluation. Reviewed, dictated and finalized at location A. HOLDER IMPRESSION: 1. Normal kidneys without hydronephrosis. 2. Small amount of hypoechoic debris versus less likely wall thickening along t he posterior inferior wall of the bladder. Correlate with urinalysis and if ind icated cystoscopy could be obtained for further evaluation.
--- NOTE | ~2020-08-27 | XR_ITS ---
EXAMINATION: XR knee LT 3V DATE: 08/27/2020 16:43 INDICATION: Left knee pain TECHNIQUE: Anteroposterior, 2 oblique and crosstable lateral views of the affected knee were obtained COMPARISON: Left knee radiographs dated 08/21/2020 and 08/12/2020 FINDINGS: Alignment is normal. No fracture. Mild chondrocalcinosis along the femoral condyles. Mild patellofem oral osteoarthritis. No joint effusion/layering lipohemarthrosis. Persistent prominent dense soft tis naomi swelling anterior to the patella with additional soft tissue swelling and subcutaneous edema danielle g the medial side of the knee which appears significantly decreased since 08/12/2020. More focal soft tissue densities projecting along the anteromedial aspect of the knee (seen slightly cephalad and cau manohar to the patella on the lateral projection), unclear whether at the skin surface or in the superfic ial subcutaneous fat and of indeterminate etiology. No soft tissue gas. IMPRESSION: 1. Persistent prominent dense prepatellar soft tissue swelling which could represent contusion/hemato ma or cellulitis. 2. No acute osseous abnormality or definitive left knee joint effusion. Reviewed, dictated and finalized at location H. RINARY PARASITOLOGIST IMPRESSION: 1. Persistent prominent dense prepatellar soft tissue swelling which could repr esent contusion/hematoma or cellulitis. 2. No acute osseous abnormality or definitive left knee joint effusion.
--- NOTE | ~2020-08-27 | XR_ITS ---
XR chest 1V portable DATE: 08/31/2020 05:51 INDICATION: Covid 19. Bilateral pneumonia. TECHNIQUE: Portable AP chest on 08/31/2020 at 0 514 COMPARISON: 08/29/2020 portable AP chest at 0640 hours FINDINGS: There are persistent patchy infiltrates and/atelectasis in the mid and lower lung zones, re latively stable since 08/29/2020. Heart size is borderline. Is aortic calcification. No pleural effusion or pneumothorax. IMPRESSION: Stable patchy bilateral primarily mid and lower lung zone infiltrates and/atelectasis Reviewed, dictated and finalized at location A. S MANAGER IMPRESSION: Stable patchy bilateral primarily mid and lower lung zone infiltrat es and/atelectasis
--- NOTE | ~2020-08-27 | XR_ITS ---
XR chest 1V portable 08/29/2020 06:47 Indication: Pneumonia. Fever. Procedure: AP portable chest Comparison: Comparison to multiple prior studies sequentially, with oldest reviewed study dated 12/2010. Findings: Cardiomegaly. Diffuse bilateral airspace disease with consolidation most confluent right pe rihilar region, consistent with pneumonia. No pleural effusion or pneumothorax. No acute osseous abno rmality. Impression: 1: Stable bilateral airspace disease, consistent with pneumonia. Reviewed, dictated and finalized at location A. S PRODUCT SPECIALIST Impression: 1: Stable bilateral airspace disease, consistent with pneumonia.
--- NOTE | ~2020-08-27 | XR_ITS ---
EXAMINATION: XR chest 1V portable EXAM DATE: 09/04/2020 06:19 INDICATION: Pneumonia. COVID 19. TECHNIQUE: Portable AP frontal chest x-ray was obtained. Comparison is made to prior examination from 08/31/2020, 08/29. FINDINGS: Small to moderate amount of bilateral ill-defined acute airspace disease, infection and/or edema. Please clinically correlate. Mild cardiomegaly. No pneumothorax or pleural effusion. There are mild bony degenerative changes. There is no significant interval change. IMPRESSION: Small to moderate amount of bilateral ill-defined acute airspace disease. Reviewed, dictated and finalized at location A. MENTATION WRITER IMPRESSION: Small to moderate amount of bilateral ill-defined acute airspace di sease.
--- NOTE | ~2020-08-27 | CT_ITS ---
EXAMINATION: CT brain wo con DATE: 08/27/2020 16:36 INDICATION: Altered mental status. TECHNIQUE: Computed tomography (CT) of the head was performed without intravenous contrast. The mA wa s adjusted according to patient size. Iterative reconstruction technique was employed. The dose-lengt h product was 681.00 mGy-cm. COMPARISON: Head CT 08/12/2020 FINDINGS: There are scattered areas of low attenuation in the cerebral white matter. There is no intr acranial hemorrhage, acute infarction, or abnormal intracranial mass lesion. The ventricles are warner l in size. There are likely changes of ocular lens replacement surgeries. There is mild mucosal thick ening in the paranasal sinuses. The mastoid air cells are normal. IMPRESSION: 1. Stable mild nonspecific cerebral white matter disease, which likely represents chronic small vesse l ischemic disease. Reviewed, dictated and finalized at location A. INE OPERATOR TRANSPLANTER IMPRESSION: 1. Stable mild nonspecific cerebral white matter disease, which likely represen ts chronic small vessel ischemic disease.
--- NOTE | ~2020-08-27 | CT_ITS ---
EXAMINATION: CT brain wo con DATE: 08/29/2020 15:42 INDICATION: Altered mental status. TECHNIQUE: Computed tomography (CT) of the head was performed without intravenous contrast. The mA wa s adjusted according to patient size. Iterative reconstruction technique was employed. The dose-lengt h product was 756.67 mGy-cm. COMPARISON: Head CT 08/27/2020 FINDINGS: There are scattered areas of low attenuation in the cerebral white matter. There is no intr acranial hemorrhage, acute infarction, or abnormal intracranial mass lesion. The ventricles are warner l in size. There is mild mucosal thickening in the paranasal sinuses. There are likely changes of ocu lar lens replacement surgeries. The mastoid air cells are normal. IMPRESSION: 1. Stable mild nonspecific cerebral white matter disease, which likely represents chronic small vesse l ischemic disease. Reviewed, dictated and finalized at location A. RESSIVE ASSEMBLER AND FITTER IMPRESSION: 1. Stable mild nonspecific cerebral white matter disease, which likely represen ts chronic small vessel ischemic disease.
--- NOTE | ~2020-08-27 | XR_ITS ---
EXAMINATION: XR chest 1V portable DATE: 08/27/2020 16:43 INDICATION: Transient alteration of awareness TECHNIQUE: frontal view of the chest was obtained. COMPARISON: Chest radiograph dated 04/06/2011 FINDINGS: Lung volumes appear mildly decreased which may be due to lordotic positioning. Elevation of the right hemidiaphragm. Linear opacity likely discoid atelectasis at the lateral right mid to lower lung zone . No other airspace opacities, pulmonary edema, pleural effusion or pneumothorax. The cardiomediastin al silhouette is within normal limits for AP technique. Moderate degenerative skeletal changes in the spine and at the left shoulder. IMPRESSION: 1. Mild discoid atelectasis at the right mid to lower lung zone. Reviewed, dictated and finalized at location . F ENGINEER PRODUCTION
--- NOTE | ~2020-08-27 | MR_ITS ---
EXAMINATION: MR brain/brain stem wo con DATE: 08/31/2020 15:30 INDICATION: Confusion. Left hemiparesis. TECHNIQUE: Magnetic resonance imaging (MRI) of the brain and brainstem was performed without intraven ous contrast. Sequences included sagittal and axial T1-weighted FSE, axial diffusion-weighted FS EPI, axial T2*-weighted GRE, axial T2-weighted FLAIR Propeller, and axial T2-weighted Propeller. Apparent diffusion coefficient (ADC) maps were created. COMPARISON: Head CT 08/29/2020 FINDINGS: There are scattered areas of nonspecific increased T2-weighted signal intensity in the cere bral white matter. There is no intracranial hemorrhage, acute infarction, or abnormal intracranial ma ss lesion. The ventricles are normal in size. There is mild mucosal thickening in the paranasal sinus es. There are likely changes of ocular lens replacement surgeries. There is a trace left mastoid effu guillermina. IMPRESSION: 1. Mild nonspecific cerebral white matter disease, which likely represents chronic small vessel ische laurie disease. Reviewed, dictated and finalized at location A. NG CEMENTER IMPRESSION: 1. Mild nonspecific cerebral white matter disease, which likely represents chrome plater helper beulah small vessel ischemic disease.
[2020-08-27 15:48] VITALS: BP 143/73; PULSE 82; RESP 18; TEMP 36.7; O2SAT 92
--- NOTE | 2020-08-27 15:58 | ED.GENADULT ---
HPI - General Adult General Chief complaint: Altered Mental Status Stated complaint: altered, COVID + Source: patient and EMS History of Present Illness HPI narrative: Patient is a 75 y/o male [facility]. They report that patient has been confused for last several hours. There is no known alleviating or exacerbating factor. Patient thought that he is here for a heart attack , but he denies any chest pain or SOB. He does complain of some left knee pain. He tested positive for COVID 2 weeks ago. He is poor historian. Related Data Home Medications Medication Instructions Recorded Confirmed atorvastatin 40 mg PO DAILY 08/12/20 08/27/20 metoprolol succinate 25 mg PO DAILY 08/12/20 08/27/20 primidone 500 mg PO QID 08/12/20 08/27/20 ropinirole 4 mg PO HS 08/12/20 08/27/20 tramadol 50 mg PO BID PRN 08/27/20 08/27/20 Allergies Allergy/AdvReac Type Severity Reaction Status Date / Time No Known Allergies Allergy Unknown Verified 08/12/20 07:24 Review of Systems Review of Systems: ROS unobtainable: Yes unobtainable due to mental status PMFSH Past Medical History Medical History Anxiety Anxiety and depression Depression Diverticulitis DVT (deep venous thrombosis) GI bleed Heart attack History of myocardial infarction History of poliomyelitis Hyperlipidemia Hypertension Macrocytic anemia Macular degeneration disease Malignant melanoma Parkinsons Surgical History Surgical History H/O cardiac catheterization H/O heart artery stent x2 History of colonoscopy History of tonsillectomy Family History Family History Mother CHF (congestive heart failure) Father Malignant neoplasm of prostate Leukemia Social History Social History Social History: the patient used to smoke until he met his and then he quit. He used to smoke anywhere from a pack to half a pack a day but quit approximately 14 years ago. He rarely drinks. He quit drinking about the same did quit smoking. He is and his is a durable power assistant attorney general for healthcare. He had 1 biological child a son who was murdered at the age of 21 related to drug activity. 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. He desires to be a full code. His is the durable power assistant attorney general Smoking status: Former smoker Tobacco type: cigarettes Second hand tobacco smoke exposure: No Alcohol intake: former Substance use: never Substance use type: former substance user and marijuana Other substance usage details: no drinking or smoking in 14 yrs Gender identity (if verbalized by the patient): Male Spiritual care concerns: No Exam Const: General: no acute distress and well developed Orientation/consciousness: oriented to person, oriented to time and confusion HENMT: Head: normocephalic Ears: external ears normal General nose exam: Normal external nose present Eyes: General: appearance normal, both eyes and all related structures Conjunctivae: conjunctivae normal Neck: Neck: normal visual inspection and full ROM Chest: Chest palpation & inspection: normal inspection of the chest and no tenderness Resp: Effort & Inspection: normal respiratory effort Auscultation: clear to auscultation bilaterally Cardio: Rate: regular rate Rhythm: regular rhythm GI: GI Palp: No abdominal tenderness and Yes Soft to palpation Skin: General skin exam: normal color and turgor normal Neuro: General: oriented to person, oriented to time and confusion Cognition (Neuro): normal cognition Extrem: General: normal to inspection, full ROM and no pedal edema Left lower extremity: knee Details: swelling Location: of the patella Psych: Appearance: grossly normal Mental Status: mental status grossly normal
[2020-08-27 16:29] LABS: Basophils Percent Auto 0.5 % (0.2-1.2); Eosinophils Percent Auto 0.3 % (0-4.4); Hematocrit 31.3 % (42.0-52.0); Hemoglobin 9.8 g/dL (14.0-18.0); Immature Granulocyte Absolute 0.01 K/mm3 (0.00-0.031); Immature Granulocyte Percent A 0.3 % (0-0.5); Lymphocytes Absolute Auto 0.98 K/mm3 (0.9-3.2); Lymphocytes Percent Auto 25.7 % (18.3-44.2); Mean Corpuscular HGB Conc 31.3 g/dl (32-36); Mean Corpuscular Hemoglobin 30.6 pg (26-34); Mean Corpuscular Volume 97.8 fl (80-100); Mean Platelet Volume 10.5 fl (7.4-10.4); Monocytes Absolute Auto 0.4 K/mm3 (0.1-0.6); Monocytes Percent Auto 11.5 % (2.6-8.5); Neutrophils Absolute Auto 2.4 K/mm3 (1.3-6.7); Neutrophils Percent Auto 61.7 % (45.5-73.1); Platelet Count Result 276 k/mm3 (150-375); Red Cell Distribution Width 13.1 % (11.5-14.5); White Blood Count 3.8 K/mm3 (4.5-10.0)
[2020-08-27 16:43] LABS: Alanine Aminotransferase 68 U/L (4-50); Albumin Level 3.6 g/dL (3.5-5.1); Alkaline Phosphatase 79 U/L (38-126); Anion Gap 11 mmol/L (8-16); Aspartate Amino Transferase 106 U/L (17-59); Bilirubin,Total 0.5 mg/dL (0.2-1.3); Blood Urea Nitrogen 42 mg/dL (9-20); Calcium 8.4 mg/dL (8.4-10.2); Carbon Dioxide 26 mmol/L (22-30); Chloride 107 mmol/L (98-107); Estimated CRCL calculation 32 ml/min; Estimated Glomerular Filt Rate 35; Glucose 101 mg/dL (75-110); Sodium 144 mmol/L (137-145)
[2020-08-27 17:07] LABS: INR 1.4; Partial Thromboplastin Time 36.5 SECONDS (22.3-36.8); Prothrombin Time 17.8 Seconds (11.1-14.7)
[2020-08-27 17:58] VITALS: BP 138/78; PULSE 86; RESP 18; O2SAT 98
[2020-08-27] MEDS: SODIUM CHLORIDE 0.9% IV 1,000 ML 999 ML IV CONT (17:58)
[2020-08-27 18:09] LABS: Add Urine Microscopic? YES; Appearance Urine Cloudy (Clear); Bacteria Urine Trace /hpf; Bilirubin Urine Negative (Negative); Blood Urine 1+ (Negative); Color Urine Yellow (Yellow); Glucose Urine UA Negative (Negative); Ketones Urine Negative (Negative); Leukocyte Esterase Ur Negative LEU/UL (Negative); Mucus Urine Rare /lpf; Nitrate Urine Negative (Negative); Protein Urine 1+ mg/dL (Negative); RBC Urine 0-2 /hpf (0-2); Specific Grav Ur 1.018 (1.001-1.035); Squamous Epithelial Cell Urine Rare /hpf (Few); Urobilinogen Urine Negative mg/dL (<2.0); WBC Urine 0-3 /hpf
[2020-08-27 18:26] LABS: Lactic Acid Reflex 1.6 mmol/L (0.7-2.1)
[2020-08-27 19:05] VITALS: BP 148/64; PULSE 91; RESP 15; O2SAT 98
[2020-08-27 20:38] VITALS: BP 122/78; PULSE 76; RESP 18; O2SAT 97
--- NOTE | 2020-08-27 20:56 | PM.IMHP ---
H&P: HPI History of Present Illness Date/Time: 08/27/20 20:56 Chief complaint: amish. altered mental status Narrative: This is a 75 year old male with Parkinson's disease and history of frequent falls known to our Hospitalist service from prevoius admissions who tonight was sent to the hospital secondary to acute altered mental status. The patient is only oriented to himself and on my encounter with him he has no idea where he is and cannot tell me why he is here. He also cannot tell me what year it is. Apparently he told the ER provider that he thought he was here for a heart attack although at that time he denied any chest pain or shortness of breath. He was complaining of left knee pain. He is know to have recently tested positive for COVID-19. [facility] reported to ER staff that the patient was more confused than normal. The patient was evaluated in the ER tonight and again found to have a large hematoma of his left knee on xray. ER provider attempted to aspirate it but could not. Brain CT was unremarkable for acute pathology. On my encounter with the patient he is only complaining of left knee pain. He denies any recent fevers, chills, cough, palpitations, shortness of breath, chest pain (at this time), abdominal pain, dysuria, heamturia or rectal bleeding. The patient is known to be chronically anticoagulated on Eliquis secondary to previous DVT. We have been asked to admit the patient to the hosptial for his altered mental status and left knee effusion/hematoma. Review of Systems Review of Systems: All systems reviewed & are unremarkable except as noted in HPI and below PMFSH Past Medical History Medical History Anxiety Anxiety and depression Depression Diverticulitis DVT (deep venous thrombosis) GI bleed Heart attack History of myocardial infarction History of poliomyelitis Hyperlipidemia Hypertension Macrocytic anemia Macular degeneration disease Malignant melanoma Parkinsons Surgical History Surgical History H/O cardiac catheterization H/O heart artery stent x2 History of colonoscopy History of tonsillectomy Family History Family History Mother CHF (congestive heart failure) Father Malignant neoplasm of prostate Leukemia Social History Social History Social History: the patient used to smoke until he met his and then he quit. He used to smoke anywhere from a pack to half a pack a day but quit approximately 14 years ago. He rarely drinks. He quit drinking about the same did quit smoking. He is and his is a durable power office manager executive assistant for healthcare. He had 1 biological child a son who was murdered at the age of 21 related to drug activity. 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 He desires to be a full code. His is the durable power office manager executive assistant Smoking status: Former smoker Tobacco type: cigarettes Second hand tobacco smoke exposure: No Alcohol intake: former Substance use: never Substance use type: former substance user and marijuana Other substance usage details: no drinking or smoking in 14 yrs Gender identity (if verbalized by the patient): Male Spiritual care concerns: No Meds Home Medications and Allergies Home Medications Medication Instructions Recorded Confirmed Type atorvastatin 40 mg PO DAILY 08/12/20 08/27/20 History metoprolol succinate 25 mg PO DAILY 08/12/20 08/27/20 History primidone 500 mg PO QID 08/12/20 08/27/20 History ropinirole 4 mg PO HS 08/12/20 08/27/20 History apixaban [Eliquis] 5 mg PO BID #74 tablet 08/14/20 08/27/20 Rx cephalexin [Keflex] 500 mg PO Q8H 10 Days #30 cap 08/21/20 08/27/20 Rx tramadol 50 mg PO BID PRN 08/27/20 08/27/20 History Allergies Allergy/AdvReac Type Severity Reaction S
[2020-08-27] MEDS: SODIUM CHLORIDE 0.9% IV 1,000 ML 125 ML IV CONT (21:12)
[2020-08-27 21:35] VITALS: BP 143/70; PULSE 96; RESP 24; TEMP 37.1; O2SAT 97; BMI 30.2
[2020-08-27 21:48] VITALS: BMI 30.2
[2020-08-27 22:50] VITALS: BP 176/89; PULSE 98; RESP 20; RESP 22; TEMP 36.9; O2SAT 98; O2SAT 99
--- NOTE | 2020-08-27 22:50 | PC.NURSE ---
Received from room 255 per hospital bed.
[2020-08-28] VITALS (7 sets, daily range): BP systolic 133–167; BP diastolic 65–92; PULSE 84–104; RESP 20–36; TEMP 36.8–37.7; O2SAT 91–98; BMI 30.2
[2020-08-28] MEDS: SODIUM CHLORIDE 0.9% IV 1,000 ML 125 ML IV CONT ×3 (05:12→20:17)
[2020-08-28 06:56] LABS: Basophils Percent Auto 0.5 % (0.2-1.2); Eosinophils Percent Auto 0.3 % (0-4.4); Hematocrit 28.4 % (42.0-52.0); Immature Granulocyte Absolute 0.01 K/mm3 (0.00-0.031); Immature Granulocyte Percent A 0.3 % (0-0.5); Lymphocytes Absolute Auto 0.94 K/mm3 (0.9-3.2); Lymphocytes Percent Auto 25.5 % (18.3-44.2); Mean Corpuscular HGB Conc 31.7 g/dl (32-36); Mean Corpuscular Hemoglobin 30.7 pg (26-34); Mean Corpuscular Volume 96.9 fl (80-100); Mean Platelet Volume 10.5 fl (7.4-10.4); Monocytes Absolute Auto 0.4 K/mm3 (0.1-0.6); Monocytes Percent Auto 11.4 % (2.6-8.5); Neutrophils Absolute Auto 2.3 K/mm3 (1.3-6.7); Platelet Count Result 266 k/mm3 (150-375); Red Blood Count 2.93 M/mm3 (4.6-6.20); White Blood Count 3.7 K/mm3 (4.5-10.0)
[2020-08-28 07:08] LABS: Anion Gap 11 mmol/L (8-16); Blood Urea Nitrogen 36 mg/dL (9-20); Carbon Dioxide 24 mmol/L (22-30); Chloride 113 mmol/L (98-107); Estimated CRCL calculation 42 ml/min; Estimated Glomerular Filt Rate 42; Glucose 91 mg/dL (75-110); Sodium 148 mmol/L (137-145)
[2020-08-28 07:10] LABS: Alanine Aminotransferase 63 U/L (4-50); Aspartate Amino Transferase 109 U/L (17-59)
[2020-08-28 07:25] LABS: Magnesium 2.1 mg/dL (1.6-2.3)
[2020-08-28 08:02] LABS: Thyroid Stimulating Hormone Reflex 0.549 uIU/mL (0.465-4.68)
[2020-08-28 08:33] LABS: Folic Acid > 20.0 ng/mL (2.76->20); Vitamin B12 > 1000.0 pg/mL (239-931)
[2020-08-28] MEDS: PRIMIDONE 250 MG TABLET 500 MG PO ×3 (11:55→20:16)
[2020-08-28] MEDS: APIXABAN 5 MG TABLET PO (11:55)
[2020-08-28] MEDS: METOPROLOL SUCCINATE EXT REL 25 MG TABCR PO (11:56)
[2020-08-28] MEDS: ATORVASTATIN 40 MG TABLET PO (11:56)
[2020-08-28] MEDS: ACETAMINOPHEN 325 MG TABLET 650 MG PO (12:21)
--- NOTE | 2020-08-28 14:53 | PM.IMPN ---
Progress Note: A&P Assessment and Plan (1) Acute encephalopathy: Code(s): G93.40 - Encephalopathy, unspecified Status: Acute Assessment and Plan: It is unknown exactly with the patient's baseline mental status is although care home staff had stated that the patient was more confused. Altered mental status may be secondary to acute dehydration vs. Parkinson's disease vs infectious process. His CT brain was unremarkable for any acute pathology. Continue to follow. (2) COVID-19 virus infection: Code(s): U07.1 - COVID-19 Status: Acute Assessment and Plan: Patient COVID 2 weeks ago presumably but COVID test negative on 08/12 here. Unclear when (or if) he was positive. Now having fevers. Repeat CXR consistent with COVID. Will add abx to cover for PNA and aspiration given his diagnosis of Parkinsons. Cultures ordered as well. (3) Hematoma of left knee region: Code(s): S80.02XA - Contusion of left knee, initial encounter Status: Acute Assessment and Plan: Patient with subacute hematoma around the left knee from a recent fall and anticoagulants. He did have left swelling earlier this month as well. Anticoagulation stopped. Appreciate ortho input. Continue pain control as needed but does not seem to bother him much. (4) Acute renal failure: Qualifiers: Acute renal failure type: unspecified Qualified Code(s): N17.9 - Acute kidney failure, unspecified Code(s): N17.9 - Acute kidney failure, unspecified Status: Acute Assessment and Plan: BUN 42 and Cr 1.9. Likely prerenal from dehydration. IV fluid challenge overnight. Cr better at 1.6. Monitor renal function and urine output. Avoid nephrotoxic agents and renally dose medications. Decrease fluid rate. (5) Dehydration: Code(s): E86.0 - Dehydration Status: Acute Assessment and Plan: Continue IV hydration. Monitor vital signs and urine output. (6) Parkinsons: Code(s): G20 - Parkinson's disease Status: Chronic Assessment and Plan: Stable. Not on Sinemet on admission nor was he on Sinemet last hospitalization. (7) Hyperlipidemia: Qualifiers: Hyperlipidemia type: unspecified Qualified Code(s): E78.5 - Hyperlipidemia, unspecified Code(s): E78.5 - Hyperlipidemia, unspecified Status: Chronic Assessment and Plan: Stable.Continue Lipitor. (8) Hypertension: Qualifiers: Hypertension type: unspecified Qualified Code(s): I10 - Essential (primary) hypertension Code(s): I10 - Essential (primary) hypertension Status: Chronic Assessment and Plan: Patient's blood pressure was reviewed on 08/28 Blood pressure remains elevated at times. Will continue current medications with metoprolol. Monitor blood pressure. (9) Anxiety and depression: Code(s): F41.9 - Anxiety disorder, unspecified; F32.9 - Major depressive disorder, single episode, unspecified Status: Chronic Assessment and Plan: Stable. (10) Right leg DVT: Qualifiers: Affected thrombotic vein of extremity: unspecified vein of extremity Chronicity: acute Qualified Code(s): I82.401 - Acute embolism and thrombosis of unspecified deep veins of right lower extremity Code(s): I82.401 - Acute embolism and thrombosis of unspecified deep veins of right lower extremity Status: Acute Assessment and Plan: Recent DVT. Anticoagulation held. Resume Eliquis when able. Subjective Date/time seen: 08/28/20 14:53 Interval history: Date of service 08/28 75yo male with Parkinson Disease and CAD here for altered mental status. Patient tested positive for COVID 2 weeks ago. Assuming care. Chart reviewed. Patient is somnolent but arouses easily. He is unable to provide history at this time. Review of Systems Review of Systems: ROS unobtainable: Yes unobtaina
--- NOTE | 2020-08-28 16:24 | P.OP_ITS ---
Procedure Note - Detailed Date of procedure: 08/28/20 Pre-op diagnosis: amish. altered mental status LT knee hematoma Post-op diagnosis: same Procedure performed: debride lt knee hematoma Description of procedure: Indications: Patient is a 75-year-old gentleman COVID positive [facility] with mental status changes and fever. Noted to have left knee swelling consistent with hematoma. Patient on antic oagulant. Skin over the anteromedial knee is tense, indicated for evacuation. What was done: Patient identified preoperatively. Informed consent given. Operative extremity marked. Time-out performed confirming the patient, site of the surgery and the plan. Local anesthetic with 1% lidocaine plain done over the suprapatellar area left knee. Skin prepped with alcohol prep solution. 18 gauge needle used to aspirate sanguinous fluid from the prepatellar bursa left knee. Hematoma then prevented further aspiration. Fifteen blade knife used to make stab incision in skin over the midline suprapatellar area. Clamp dissection down to the suprapatellar bursa which was opened and hematoma evacuated. Sterile dressing applied. All sponge, needle, instrument counts were correct at the end of the case. Anesthesia: local Surgeon: Leandro Oswald MD Employee Benefits Administrator: ROOSEVELT Marshall Estimated blood loss (mL): 30 Pathology: other ( laboratory testing fluid) Complications: None Condition: stable Disposition: floor
--- NOTE | 2020-08-28 16:39 | PM.CNOR ---
Assessment and Plan Assessment and plan (1) Hematoma of left knee region: Code(s): S80.02XA - Contusion of left knee, initial encounter Status: Acute Assessment and Plan: Large left prepatellar swelling noted. Questionable fall. Diffuse abrasions noted on the left medial aspect of the knee. No open wounds. No drainage. Ecchymosis, warmth and diffuse tenderness. Patient underwent I&D of the left prepatellar hematoma by myself and attending physician, Dr. Oswald. See procedure note for complete details. 30 mL of sanguinous fluid aspirated from the left knee. Clotted hematoma noted as well. Synovial aspirate sent for stat Gram stain and culture. Left knee dressed with fluffed gauze, wrapped with Kerlix and an Alex bandage. Recommend elevation of the left lower extremity. Pain control per hospitalist team. Patient would benefit from a Eliquis holiday given large knee hematoma, awaiting further discussion with hospitalist team. Continue daily dressing changes. Monitor drainage. (2) COVID-19 virus infection: Code(s): U07.1 - COVID-19 Status: Acute Assessment and Plan: Recent COVID-19 positive test at [facility]. (3) Altered mental status: Qualifiers: Altered mental status type: unspecified Qualified Code(s): R41.82 - Altered mental status, unspecified Code(s): R41.82 - Altered mental status, unspecified Status: Acute Assessment and Plan: Patient admitted with altered mental status and fever as well as left knee hematoma. (4) Chronic anticoagulation: Code(s): Z79.01 - long term care pharmacist (current) use of anticoagulants Status: Acute Assessment and Plan: Patient would benefit from Eliquis holiday to allow left knee hematoma to resolve fully. We will defer decision to hospitalist team pending discussion. History of Present Illness HPI Consult date: 08/28/20 Requesting physician: Suraj Rivas MD Consult reason: other (Left Knee Hematoma ) Chief complaint: amish. altered mental status Narrative: 75-year-old male with a history of left knee pain and swelling. He was recently admitted with acute altered mental status. He tested positive for COVID-19 recently at the [facility] facility. The patient is a poor historian and cannot give a great history regarding the left knee pain. An aspiration was attempted in the emergency room but was unsuccessful. A brain CT was performed and unremarkable for acute pathology. The patient was then admitted for acute altered mental status and left knee pain. Radiographs the left knee revealed persistent prominent dense prepatellar soft tissue swelling which could represent contusion/hematoma or cellulitis. The patient is chronically on Eliquis for a DVT. Orthopedic consult requested by the emergency physician. Review of Systems Review of Systems: ROS unobtainable: Yes unobtainable due to mental status Constitutional: Constitutional: Reports as per HPI Musculoskeletal: Musculoskeletal: Reports arthralgias ( Left knee) and Reports joint swelling ( left knee) FOR[facility]LY [facility] Past Medical History Medical History Anxiety Anxiety and depression Depression Diverticulitis DVT (deep venous thrombosis) GI bleed Heart attack History of myocardial infarction History of poliomyelitis Hyperlipidemia Hypertension Macrocytic anemia Macular degeneration disease Malignant melanoma Parkinsons Surgical History Surgical History H/O cardiac catheterization H/O heart artery stent x2 History of colonoscopy History of tonsillectomy Family History Family History Mother CHF (congestive heart failure) Father Malignant neoplasm of prostate Leukemia Social History Social History Social History:
[2020-08-28 17:35] LABS: Crystals Synovial Fluid None Seen (None Seen)
[2020-08-28 17:38] LABS: Appearance Synovial Fluid Bloody (Clear); Color Synovial Fluid Red (Colorless); Source Synovial Fluid Synovial fluid
[2020-08-28 17:39] LABS: Neutrophils Synovial Fluid 94 % (0-25)
[2020-08-28 17:40] LABS: Lymphocytes Synovial Fluid 4 %; Macrophages Synovial Fluid 1 %; Monocytes Synovial Fluid 1 %
[2020-08-29] VITALS (7 sets, daily range): BP systolic 129–153; BP diastolic 57–94; PULSE 80–99; RESP 20–22; TEMP 36.2–38.2; O2SAT 94–100
[2020-08-29] MEDS: rOPINIRole HCL 1 MG TABLET 4 MG PO (00:16)
[2020-08-29 06:51] LABS: Basophils Percent Auto 0.2 % (0.2-1.2); Eosinophils Percent Auto 0.2 % (0-4.4); Hematocrit 26.8 % (42.0-52.0); Hemoglobin 8.5 g/dL (14.0-18.0); Immature Granulocyte Absolute 0.01 K/mm3 (0.00-0.031); Immature Granulocyte Percent A 0.2 % (0-0.5); Lymphocytes Absolute Auto 0.94 K/mm3 (0.9-3.2); Mean Corpuscular HGB Conc 31.7 g/dl (32-36); Mean Corpuscular Hemoglobin 30.9 pg (26-34); Mean Corpuscular Volume 97.5 fl (80-100); Mean Platelet Volume 10.3 fl (7.4-10.4); Monocytes Absolute Auto 0.4 K/mm3 (0.1-0.6); Monocytes Percent Auto 9.6 % (2.6-8.5); Neutrophils Absolute Auto 2.7 K/mm3 (1.3-6.7); Neutrophils Percent Auto 66.8 % (45.5-73.1); Platelet Count Result 240 k/mm3 (150-375); Red Blood Count 2.75 M/mm3 (4.6-6.20); Red Cell Distribution Width 13.3 % (11.5-14.5); White Blood Count 4.1 K/mm3 (4.5-10.0)
[2020-08-29 07:00] LABS: Alanine Aminotransferase 50 U/L (4-50); Albumin Level 2.9 g/dL (3.5-5.1); Alkaline Phosphatase 63 U/L (38-126); Anion Gap 8 mmol/L (8-16); Aspartate Amino Transferase 96 U/L (17-59); Bilirubin,Total 0.4 mg/dL (0.2-1.3); Blood Urea Nitrogen 32 mg/dL (9-20); Calcium 7.8 mg/dL (8.4-10.2); Carbon Dioxide 24 mmol/L (22-30); Chloride 116 mmol/L (98-107); Estimated CRCL calculation 42 ml/min; Estimated Glomerular Filt Rate 42; Glucose 104 mg/dL (75-110); Lactate Dehydrogenase 965 U/L (313-618); Sodium 148 mmol/L (137-145)
[2020-08-29 07:20] LABS: CRP 21.8 mg/dL (<1.0)
[2020-08-29] MEDS: ATORVASTATIN 40 MG TABLET PO (09:13)
[2020-08-29] MEDS: PRIMIDONE 250 MG TABLET 500 MG PO ×2 (09:13→12:04)
[2020-08-29] MEDS: METOPROLOL SUCCINATE EXT REL 25 MG TABCR PO (09:13)
[2020-08-29] MEDS: SODIUM CHLORIDE 0.9% IV 1,000 ML 70 ML IV CONT (09:14)
--- NOTE | 2020-08-29 14:21 | PM.IMPN ---
Progress Note: A&P Assessment and Plan (1) Acute encephalopathy: Code(s): G93.40 - Encephalopathy, unspecified Status: Acute Assessment and Plan: It is unknown exactly with the patient's baseline mental status is although group home staff had stated that the patient was more confused. Altered mental status may be secondary to acute dehydration vs. Parkinson's disease vs infectious process/COVID. His CT brain was unremarkable tonight for any acute pathology. B12, folate and TSH normal. CRP 21.8. Related to COVID? Will check MRI brain. Neuro consult. Continue to follow. Repeat COVID pending. (2) COVID-19 virus infection: Code(s): U07.1 - COVID-19 Status: Acute Assessment and Plan: Patient COVID 2 weeks ago presumably but COVID test negative on 08/12 here. Unclear when (or if) he was positive. Now having fevers. CXR today reviewed showing no change. Continue abx to cover for PNA and aspiration given his diagnosis of Parkinsons. Cultures pending. Left knee showing WBC but no organisms. Speech therapy to see. (3) Hematoma of left knee region: Code(s): S80.02XA - Contusion of left knee, initial encounter Status: Acute Assessment and Plan: Patient with subacute hematoma around the left knee from a recent fall and anticoagulants. He did have left swelling earlier this month as well. Anticoagulation stopped. Appreciate ortho input. Now s/p debridement 08/28. Continue pain control using non-narcotics. (4) Acute renal failure: Qualifiers: Acute renal failure type: unspecified Qualified Code(s): N17.9 - Acute kidney failure, unspecified Code(s): N17.9 - Acute kidney failure, unspecified Status: Acute Assessment and Plan: BUN 42 and Cr 1.9. Likely prerenal from dehydration treated with IV fluids. Cr better at 1.6. Monitor renal function and urine output. Avoid nephrotoxic agents and renally dose medications. Change to maintenance fluids (5) Dehydration: Code(s): E86.0 - Dehydration Status: Acute Assessment and Plan: Better. Change to maintenance fluids. Monitor vital signs and urine output. (6) Parkinsons: Code(s): G20 - Parkinson's disease Status: Chronic Assessment and Plan: Stable. Not on Sinemet on admission nor was he on Sinemet last hospitalization. On high dose primidone and was on this last admission. Also on ropinirole at night that is the same as last admission. Will cut some meds back. (7) Hyperlipidemia: Qualifiers: Hyperlipidemia type: unspecified Qualified Code(s): E78.5 - Hyperlipidemia, unspecified Code(s): E78.5 - Hyperlipidemia, unspecified Status: Chronic Assessment and Plan: Stable. Continue Lipitor. LFTs better. (8) Hypertension: Qualifiers: Hypertension type: unspecified Qualified Code(s): I10 - Essential (primary) hypertension Code(s): I10 - Essential (primary) hypertension Status: Chronic Assessment and Plan: Patient's blood pressure was reviewed on 08/29 Blood pressure remains elevated at times. Will continue current medications with metoprolol. Monitor blood pressure. (9) Anxiety and depression: Code(s): F41.9 - Anxiety disorder, unspecified; F32.9 - Major depressive disorder, single episode, unspecified Status: Chronic Assessment and Plan: Stable. (10) Right leg DVT: Qualifiers: Affected thrombotic vein of extremity: unspecified vein of extremity Chronicity: acute Qualified Code(s): I82.401 - Acute embolism and thrombosis of unspecified deep veins of right lower extremity Code(s): I82.401 - Acute embolism and thrombosis of unspecified deep veins of right lower extremity Status: Acute Assessment and Plan: Recent DVT. Anticoagulation held. Resume Eliquis when able. Subjective Date/time seen:
[2020-08-29] MEDS: DEXTROSE 5%/0.45% SOD CHL 1,000 ML 70 ML IV CONT (16:31)
[2020-08-29] MEDS: rOPINIRole HCL 1 MG TABLET 2 MG PO (20:57)
[2020-08-29] MEDS: PRIMIDONE 250 MG TABLET PO (20:57)
[2020-08-29 21:15] LABS: SARS-CoV-2 RNA PCR Positive
[2020-08-30] VITALS (9 sets, daily range): BP systolic 115–160; BP diastolic 62–84; PULSE 65–111; RESP 18–22; TEMP 36.6–38.2; O2SAT 92–99
[2020-08-30] MEDS: DEXTROSE 5%/0.45% SOD CHL 1,000 ML 70 ML IV CONT (05:23)
[2020-08-30 07:02] LABS: Basophils Percent Auto 0.2 % (0.2-1.2); Eosinophils Percent Auto 0.4 % (0-4.4); Hematocrit 27.9 % (42.0-52.0); Hemoglobin 8.6 g/dL (14.0-18.0); Immature Granulocyte Absolute 0.03 K/mm3 (0.00-0.031); Immature Granulocyte Percent A 0.6 % (0-0.5); Lymphocytes Absolute Auto 0.92 K/mm3 (0.9-3.2); Lymphocytes Percent Auto 18.3 % (18.3-44.2); Mean Corpuscular HGB Conc 30.8 g/dl (32-36); Mean Corpuscular Hemoglobin 30.3 pg (26-34); Mean Corpuscular Volume 98.2 fl (80-100); Mean Platelet Volume 10.9 fl (7.4-10.4); Monocytes Absolute Auto 0.4 K/mm3 (0.1-0.6); Monocytes Percent Auto 7.5 % (2.6-8.5); Neutrophils Absolute Auto 3.7 K/mm3 (1.3-6.7); Platelet Count Result 253 k/mm3 (150-375); Red Blood Count 2.84 M/mm3 (4.6-6.20); Red Cell Distribution Width 13.2 % (11.5-14.5)
[2020-08-30 07:57] LABS: Alanine Aminotransferase 46 U/L (4-50); Albumin Level 2.9 g/dL (3.5-5.1); Alkaline Phosphatase 61 U/L (38-126); Anion Gap 6 mmol/L (8-16); Aspartate Amino Transferase 87 U/L (17-59); Bilirubin,Total 0.3 mg/dL (0.2-1.3); Blood Urea Nitrogen 25 mg/dL (9-20); CRP 22.6 mg/dL (<1.0); Calcium 8.1 mg/dL (8.4-10.2); Carbon Dioxide 28 mmol/L (22-30); Chloride 116 mmol/L (98-107); Estimated CRCL calculation 42 ml/min; Estimated Glomerular Filt Rate 42; Glucose 127 mg/dL (75-110); Lactate Dehydrogenase 1088 U/L (313-618); Potassium 3.9 mmol/L (3.4-5.0); Sodium 150 mmol/L (137-145)
[2020-08-30 08:20] LABS: Glucose Point of Care 115 (65-105)
[2020-08-30] MEDS: ATORVASTATIN 40 MG TABLET PO (09:34)
[2020-08-30] MEDS: METOPROLOL SUCCINATE EXT REL 25 MG TABCR PO (09:35)
[2020-08-30] MEDS: PRIMIDONE 250 MG TABLET PO ×4 (09:36→20:20)
--- NOTE | 2020-08-30 10:46 | WPDNEURCNPN ---
Assessment and Plan Assessment and plan (1) Altered mental status: Qualifiers: Altered mental status type: unspecified Qualified Code(s): R41.82 - Altered mental status, unspecified Code(s): R41.82 - Altered mental status, unspecified Status: Acute (2) Hematoma of left knee region: Code(s): S80.02XA - Contusion of left knee, initial encounter Status: Acute (3) COVID-19 virus infection: Code(s): U07.1 - COVID-19 Status: Acute (4) Frequent falls: Code(s): R29.6 - Repeated falls Status: Acute Additional Plan ongoing neuro degenerative process in addition to the history of DVT and tremors patient is receiving apixaban times twice a day and primidone 250 mg q.i.d. in addition to Requip 2 mg HS and metoprolol 25 mg daily the medications will be continued as such he had been started on the antibiotics to overcome the infection will follow along with Consult date: 08/30/20 Time Seen: 10:15 HPI: Saad Yarbrough is a 75 year old male Admitted to the hospital for the complaints of change in the mental status and frequent falls patient is known to have Parkinson disease by the time he was seen in the emergency room this time he was oriented to himself but otherwise he was he told the emergency room physician that he was there for the evaluation of heart attack though he complained of no chest pain and no difficulties in breathing he did complain of left knee pain he was recently tested positive for core with 19 and was increasingly confused he was found to have large hematoma of his left knee on x-ray emergency though it could not be. Brain CT scan was negative for the bleed he is chronically anticoagulated on Eliquis secondary to previous DVTs aspirated Review of Systems Review of Systems: All systems reviewed & are unremarkable except as noted in HPI and below PMFSH Past Medical History Medical History Anxiety Anxiety and depression Depression Diverticulitis DVT (deep venous thrombosis) GI bleed Heart attack History of myocardial infarction History of poliomyelitis Hyperlipidemia Hypertension Macrocytic anemia Macular degeneration disease Malignant melanoma Parkinsons Surgical History Surgical History H/O cardiac catheterization H/O heart artery stent x2 History of colonoscopy History of tonsillectomy Family History Family History Mother CHF (congestive heart failure) Father Malignant neoplasm of prostate Leukemia Social History Social History Social History: the patient used to smoke until he met his and then he quit. He used to smoke anywhere from a pack to half a pack a day but quit approximately 14 years ago. He rarely drinks. He quit drinking about the same did quit smoking. 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 He had 1 biological child a son who was murdered at the age of 21 related to drug activity. 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 He desires to be a full code. His is the durable power construction secretary Smoking status: Former smoker Tobacco type: cigarettes Second hand tobacco smoke exposure: No Alcohol intake: former Substance use: never Substance use type: former substance user and marijuana Other substance usage details: no drinking or smoking in 14 yrs Gender identity (if verbalized by the patient): Male Spiritual care concerns: No Meds Home Medications and Allergies Home Medications Medication Instructions Recorded Confirmed Type atorvastatin 40 mg PO DAILY 08/12/20 08/27/20 History metoprolol succinate 25 mg PO DAILY 08/12/20 08/27/20 History primidone 500 mg PO QID 08/12/20 08/27/20 History ropinirole 4 mg PO HS 08/12/20 08/27/20 Hist
--- NOTE | 2020-08-30 12:24 | PM.PNORT ---
Progress Note: A&P Additional Plan POST EVACUATION OF HEMATOMA DOING WELL, A LITTLE CONFUSED. CONTINUE CURRENT MANAGEMENT Subjective Subjective Date/Time Seen: 08/30/20 12:24 SOMEWHAT CONFUSED TODAY, OTHERWISE NO NEW COMPLAINTS. NO CALF PAIN Exam Extrem: Other: VSS AFEBRILE DRESSING DRY [place] INTACT NEG HOMANS SIRN Objective Data Vital Signs Vital Signs: Vital Signs - 24 hr 08/29/20 16:00 08/29/20 20:00 08/30/20 00:00 Temperature 37.0 C 37.4 C 37.7 C H Pulse Rate 87 93 86 Respiratory Rate 20 20 20 Blood Pressure 129/57 L 152/68 H 150/68 H Pulse Oximetry 95 100 94 08/30/20 02:33 08/30/20 04:00 08/30/20 08:00 Temperature 37.3 C 36.6 C Pulse Rate 65 97 Respiratory Rate 22 H 18 Blood Pressure 115/73 157/84 H Pulse Oximetry 92 92 99 08/30/20 09:35 Temperature Pulse Rate 97 Respiratory Rate Blood Pressure Pulse Oximetry Intake/Output Intake/Output: Intake & Output 08/27/20 08/28/20 08/29/20 08/30/20 23:59 23:59 23:59 23:59 Intake Total 1000 3560 1995 1270 Output Total 450 Balance 1000 3560 1545 1270 Meds/Results Medications: Active Medications Generic Name Dose Route Start Last Admin Trade Name Freq PRN Reason Stop Dose Admin Acetaminophen 650 mg 08/27/20 21:36 08/28/20 12:21 Acetaminophen 325 Mg Tablet PO 650 mg Q4H PRN Administration Mild Pain (1-3) or Fever Apixaban 5 mg 08/28/20 09:00 08/28/20 11:55 Apixaban 5 Mg Tablet PO 5 mg BID ANABEL Administration Atorvastatin Calcium 40 mg 08/28/20 09:00 08/30/20 09:34 Atorvastatin 40 Mg Tablet PO 40 mg DAILY ANABEL Administration Piperacillin/Tazobactam/Dextrose 3.375 gm in 50 mls @ 100 mls/hr 08/28/20 12:25 08/30/20 05:55 Zosyn 3.375 Gm/D5w 50ml Pm IVPB Infused Q6HR ANABEL Infusion Dextrose/Sodium Chloride 1,000 mls @ 70 mls/hr 08/29/20 14:45 08/30/20 05:23 Dextrose 5% Sodium Chloride 0.45% IV CONT 70 mls/hr .[id number] ANABEL Administration Metoprolol Succinate 25 mg 08/28/20 09:00 08/30/20 09:35 Metoprolol Succinate Ext Rel 25 Mg Tabcr PO 25 mg DAILY ANABEL Administration Primidone 250 mg 08/29/20 17:00 08/30/20 09:36 Primidone 250 Mg Tablet PO 250 mg QID ANABEL Administration Ropinirole HCl 2 mg 08/29/20 21:00 08/29/20 20:57 Ropinirole Hcl 1 Mg Tablet PO 2 mg HS ANABEL Administration Radiology Results: ITS Impressions Knee X-Ray 08/27/20 16:47 IMPRESSION: 1. Persistent prominent dense prepatellar soft tissue swelling which could represent contusion/hematoma or cellulitis. 2. No acute osseous abnormality or definitive left knee joint effusion. Chest X-Ray 08/29/20 06:54 Impression: 1: Stable bilateral airspace disease, consistent with pneumonia. Head CT 08/29/20 15:47 IMPRESSION: 1. Stable mild nonspecific cerebral white matter disease, which likely represents chronic small vessel ischemic disease. Labs Labs: Laboratory Results - last 24 hr 08/28/20 08/30/20 08/30/20 16:42 06:06 06:06 WBC 5.0 RBC 2.84 L Hgb 8.6 L Hct 27.9 L MCV 98.2 MCH 30.3 MCHC 30.8 L RDW 13.2 Plt Count 253 MPV 10.9 H Immature Gran % (Auto) 0.6 H Neut % (Auto) 73.0 Lymph % (Auto) 18.3 [place] % (Auto) 7.5 Eos % (Auto) 0.4 Baso % (Auto) 0.2 Lymph # (Auto) 0.92 [place] # (Auto) 0.4 Eos # (Auto) 0.0 Baso # (Auto) 0.0 Abs Immat Gran (auto) 0.03 Absolute Neuts (auto) 3.7 Absolute Nucleated RBC 0.0 Nucleated RBC % 0.0 Sodium 150 H Potassium 3.9 Chloride 116 H Carbon Dioxide 28 Anion Gap 6 L BUN 25 H Creatinine 1.60 H Estim Creat Clear Calc 42 Estimated GFR 42 L Glucose 127 H POC Capillary Glucose Calcium 8.1 L Ferritin Total Bilirubin 0.3 AST 87 H ALT 46 Alkaline Phosphatase 61 Lactate Dehydrogenase 1088 H C-Reactive Protein 22.6 H Total Protein 6.0 L Albumin 2.9 L SARS-CoV-2 RNA (RT-PCR) Positive A
--- NOTE | 2020-08-30 13:10 | PCSTNOTE ---
Bedside Swallow Evaluation This pt was seen for a bedside swallow evaluation due to possible Parkinson's Disease. The pt was seated as upright as possible in bed, but his head leaned approx 30 degrees to the right and could not be straightened. He attempted to use his right hand to feed himself but was unable due to lack of strength, coordination, or both. The pt was very confused but was able to answer basic questions. He was generally unable to follow 1 step directions. Trials of thin liquid via cup resulted in lack of anterior containment due to his sideleaning posture. Trials through a straw were within functional limits, as were trials of extremely thick liquid, puree, and solid food. No clinical signs of aspiration were observed. It is recommended for the pt to continue to receive an oral diet of regular food (7) and thin liquid (0). Position during intake should be upright. The use of straws shouls be allowed due to the difficulty of drinking from a cup. No further ST is warranted at this time to address swallowing.
--- NOTE | 2020-08-30 16:20 | PM.IMPN ---
Progress Note: A&P Assessment and Plan (1) Acute respiratory failure with hypoxia: Code(s): J96.01 - Acute respiratory failure with hypoxia Status: Acute Assessment and Plan: Patient stable on 3.5-4L. CXR showing bilateral airspace disease. COVID positive here so suspect more likely COVID and less likely bacterial PNA. More tachypneic tonight related to fever. Hx of recent DVT and not on Eliquis. Feel PE less likely but will resume Eliquis today. Wean O2 as tolerated. (2) Acute encephalopathy: Code(s): G93.40 - Encephalopathy, unspecified Status: Acute Assessment and Plan: It is unknown exactly with the patient's baseline mental status is although longterm staff had stated that the patient was more confused. Altered mental status may be secondary to acute dehydration vs. Parkinson's disease vs infectious process/COVID. His CT brain was unremarkable 08/27 and no change on 08/29. MRI ordered and is pending. B12, folate and TSH normal. CRP 23 related to COVID. Cut back primidone and requip to see if this improved somnolence but no change. Neuro following and appreciate their input. Encephalopathy related to COVID? Continue to follow. (3) COVID-19 virus infection: Code(s): U07.1 - COVID-19 Status: Acute Assessment and Plan: Patient presumably had COVID 2 weeks ago but COVID test negative on 08/12 here. Unclear when (or if) he was positive. Now having fevers and COVID positive. CXR 08/29 reviewed showing no change in bilateral airspace disease. On abx to cover for bacterial PNA and aspiration given his diagnosis of Parkinsons. Cultures NGTD. (4) Hematoma of left knee region: Code(s): S80.02XA - Contusion of left knee, initial encounter Status: Acute Assessment and Plan: Patient with subacute hematoma around the left knee from a recent fall and anticoagulants. He did have left swelling earlier this month as well. Anticoagulation stopped. Appreciate ortho input. Now s/p debridement 08/28. Continue pain control using non-narcotics. (5) Acute renal failure: Qualifiers: Acute renal failure type: unspecified Qualified Code(s): N17.9 - Acute kidney failure, unspecified Code(s): N17.9 - Acute kidney failure, unspecified Status: Acute Assessment and Plan: BUN 42 and Cr 1.9. Likely prerenal from dehydration treated with IV fluids. Cr better at 1.6 and stable. Monitor renal function and urine output. Avoid nephrotoxic agents and renally dose medications. Na higher so will give free water. (6) Dehydration: Code(s): E86.0 - Dehydration Status: Acute Assessment and Plan: Better. Monitor vital signs and urine output. (7) Parkinsons: Code(s): G20 - Parkinson's disease Status: Chronic Assessment and Plan: Stable. Not on Sinemet on admission nor was he on Sinemet last hospitalization. On high dose primidone and was on this last admission. Also on ropinirole at night that is the same as last admission. We cut back some meds but no change in his mental status. (8) Hyperlipidemia: Qualifiers: Hyperlipidemia type: unspecified Qualified Code(s): E78.5 - Hyperlipidemia, unspecified Code(s): E78.5 - Hyperlipidemia, unspecified Status: Chronic Assessment and Plan: Stable. Continue Lipitor. LFTs better still. (9) Hypertension: Qualifiers: Hypertension type: unspecified Qualified Code(s): I10 - Essential (primary) hypertension Code(s): I10 - Essential (primary) hypertension Status: Chronic Assessment and Plan: Patient's blood pressure was reviewed on 08/30 Blood pressure reasonably well controlled. Will continue current medications with metoprolol. Monitor blood pressure. (10) Anxiety and depression: Code(s): F41.9 - Anxiety disorder, unspecified; F32.9 - Major depr
[2020-08-30] MEDS: rOPINIRole HCL 1 MG TABLET 2 MG PO (20:20)
[2020-08-30] MEDS: APIXABAN 5 MG TABLET PO (20:23)
[2020-08-30] MEDS: DEXTROSE 5% IN WATER 500 ML 100 ML IV CONT (20:23)
[2020-08-30] MEDS: ACETAMINOPHEN 325 MG TABLET 650 MG PO (23:07)
[2020-08-31] VITALS (14 sets, daily range): BP systolic 124–147; BP diastolic 60–82; PULSE 74–112; RESP 18–32; TEMP 37.1–39.4; O2SAT 92–97
[2020-08-31 06:43] LABS: Basophils Percent Auto 0.2 % (0.2-1.2); Eosinophils Percent Auto 0.2 % (0-4.4); Hematocrit 29.3 % (42.0-52.0); Hemoglobin 9.2 g/dL (14.0-18.0); Immature Granulocyte Absolute 0.03 K/mm3 (0.00-0.031); Immature Granulocyte Percent A 0.5 % (0-0.5); Lymphocytes Absolute Auto 0.83 K/mm3 (0.9-3.2); Lymphocytes Percent Auto 14.6 % (18.3-44.2); Mean Corpuscular HGB Conc 31.4 g/dl (32-36); Mean Corpuscular Hemoglobin 30.6 pg (26-34); Mean Corpuscular Volume 97.3 fl (80-100); Mean Platelet Volume 10.9 fl (7.4-10.4); Monocytes Absolute Auto 0.4 K/mm3 (0.1-0.6); Monocytes Percent Auto 6.2 % (2.6-8.5); Neutrophils Absolute Auto 4.5 K/mm3 (1.3-6.7); Neutrophils Percent Auto 78.3 % (45.5-73.1); Nucleated Red Blood Cells Perc 0.4 % (0.0-0.2); Platelet Count Result 241 k/mm3 (150-375); Red Blood Count 3.01 M/mm3 (4.6-6.20); Red Cell Distribution Width 13.4 % (11.5-14.5); White Blood Count 5.7 K/mm3 (4.5-10.0)
[2020-08-31 06:55] LABS: Lactic Acid Reflex 0.9 mmol/L (0.7-2.1)
[2020-08-31 07:07] LABS: Alanine Aminotransferase 52 U/L (4-50); Alkaline Phosphatase 58 U/L (38-126); Anion Gap 6 mmol/L (8-16); Aspartate Amino Transferase 108 U/L (17-59); Bilirubin,Total 0.4 mg/dL (0.2-1.3); Blood Urea Nitrogen 30 mg/dL (9-20); Calcium 8.2 mg/dL (8.4-10.2); Carbon Dioxide 27 mmol/L (22-30); Chloride 116 mmol/L (98-107); Estimated CRCL calculation 32 ml/min; Estimated Glomerular Filt Rate 31; Glucose 117 mg/dL (75-110); Lactate Dehydrogenase 1137 U/L (313-618); Phosphorus 3.3 mg/dL (2.5-4.5); Potassium 3.6 mmol/L (3.4-5.0); Sodium 149 mmol/L (137-145)
[2020-08-31] MEDS: ATORVASTATIN 40 MG TABLET PO (09:33)
[2020-08-31] MEDS: APIXABAN 5 MG TABLET PO ×2 (09:34→17:13)
[2020-08-31] MEDS: METOPROLOL SUCCINATE EXT REL 25 MG TABCR PO (09:34)
[2020-08-31] MEDS: PRIMIDONE 250 MG TABLET PO ×4 (09:34→20:58)
[2020-08-31] MEDS: ACETAMINOPHEN 325 MG TABLET 650 MG PO ×2 (09:34→21:49)
[2020-08-31] MEDS: IBUPROFEN 400 MG TABLET PO (11:26)
[2020-08-31] MEDS: DEXTROSE 5% IN WATER 500 ML 100 ML IV CONT (11:35)
--- NOTE | 2020-08-31 12:48 | PM.IMPN ---
Progress Note: A&P Assessment and Plan (1) Acute respiratory failure with hypoxia: Code(s): J96.01 - Acute respiratory failure with hypoxia Status: Acute Assessment and Plan: Patient has been stable on 3.5-4L but better today at 2L. CXR today reviewed showing persistent patchy bilateral airspace disease. COVID positive here so suspect more likely COVID but having high fevers now. More tachypneic related to fever. Hx of recent DVT; felt PE less likely but we did resume Eliquis 08/30. Wean O2 as tolerated. Check BCx and Sputum Cx. Add Vanco. Change to Cefepime until/if cx negative. No answer at phone number in the chart for his (2) Acute encephalopathy: Code(s): G93.40 - Encephalopathy, unspecified Status: Acute Assessment and Plan: It is unknown exactly with the patient's baseline mental status is although long-term staff had stated that the patient was more confused. Altered mental status may be secondary to acute dehydration vs. Parkinson's disease vs infectious process/COVID. His CT brain was unremarkable 08/27 and no change on 08/29. MRI brain ordered and is pending. B12, folate and TSH normal. CRP elevated related to COVID. We cut back primidone and requip to see if this improved somnolence but no change. Neuro following and appreciate their input. Encephalopathy related to COVID? Change abx. Continue to follow. (3) COVID-19 virus infection: Code(s): U07.1 - COVID-19 Status: Acute Assessment and Plan: Patient presumably had COVID 2 weeks ago but COVID test negative on 08/12 here. Unclear when (or if) he was positive. Now having fevers and COVID positive 08/28. CXR 08/31 reviewed showing no change in bilateral airspace disease. On abx to cover for bacterial PNA and aspiration given his diagnosis of Parkinsons. Cultures NGTD. BCx repeated. Abx adjusted. (4) Hematoma of left knee region: Code(s): S80.02XA - Contusion of left knee, initial encounter Status: Acute Assessment and Plan: Patient with subacute hematoma around the left knee from a recent fall and anticoagulants. He did have left swelling earlier this month as well. Anticoagulation stopped and he is s/p debridement 08/28. Appreciate ortho input. Continue pain control using non-narcotics. Eliquis resumed. (5) Acute renal failure: Qualifiers: Acute renal failure type: unspecified Qualified Code(s): N17.9 - Acute kidney failure, unspecified Code(s): N17.9 - Acute kidney failure, unspecified Status: Acute Assessment and Plan: BUN 42 and Cr 1.9 on admission. Likely prerenal from dehydration treated with IV fluids. Cr improved to 1.6 but worse today at 2.1. Will check for urine retention. Monitor renal function and urine output. Avoid nephrotoxic agents and renally dose medications. Start LR. (6) Dehydration: Code(s): E86.0 - Dehydration Status: Acute Assessment and Plan: As above. Monitor vital signs and urine output. (7) Parkinsons: Code(s): G20 - Parkinson's disease Status: Chronic Assessment and Plan: Stable. Not on Sinemet on admission nor was he on Sinemet last hospitalization. On high dose primidone and was on this last admission. Also on ropinirole at night that is the same as last admission. We cut back some meds but no change in his mental status. Continue to follow (8) Hyperlipidemia: Qualifiers: Hyperlipidemia type: unspecified Qualified Code(s): E78.5 - Hyperlipidemia, unspecified Code(s): E78.5 - Hyperlipidemia, unspecified Status: Chronic Assessment and Plan: Stable. LFTs up and down to COVID. Continue Lipitor. (9) Hypertension: Qualifiers: Hypertension type: unspecified Qualified Code(s): I10 - Essential (primary) hypertension Code(s): I10 - Essential (primary) hypertension Status: Chr
--- NOTE | 2020-08-31 14:06 | PCDIET ---
Nutrition Follow-Up Complete: Inadequate Protein Intake as related to wounds as evidenced by deep tissue pressure ulcer. Meet estimated nutritional needs Goal:Goal not met. Continue goal. Pt current nutrition is Heart healthy + Ghanshyam BID Nutrition recommendation: agree, will provide Enlive once daily to help meet needs Last recorded weight is 98.3 kg, recommend updated wt Bowel Motility: 08/28 last bm noted Labs Reviewed:792 Ferritin, Glucose 117, Cr 2.10, GFR 31, BUN 30, Na 149, Albumin 3.0 Meds Noted: LR's Additional Notes: Pt with average intake of 38% over last five meals. Ghanshyam provided BID to aid in wound healing for left heel and buttocks. We will try to add one Enlive daily to provide additional options for nutrition during low appetite. Reassessing every 5 days.
[2020-08-31] MEDS: LACTATED RINGERS 1,000 ML 70 ML IV CONT (18:46)
[2020-08-31] MEDS: rOPINIRole HCL 1 MG TABLET 2 MG PO (20:58)
[2020-09-01] VITALS (9 sets, daily range): BP systolic 110–152; BP diastolic 59–74; PULSE 60–104; RESP 18–28; TEMP 36.6–38.9; O2SAT 92–97
[2020-09-01 06:29] LABS: Basophils Percent Auto 0.3 % (0.2-1.2); Eosinophils Absolute Auto 0.1 K/mm3 (0-0.3); Eosinophils Percent Auto 0.8 % (0-4.4); Hematocrit 28.6 % (42.0-52.0); Hemoglobin 8.8 g/dL (14.0-18.0); Immature Granulocyte Absolute 0.05 K/mm3 (0.00-0.031); Immature Granulocyte Percent A 0.8 % (0-0.5); Lymphocytes Absolute Auto 0.84 K/mm3 (0.9-3.2); Lymphocytes Percent Auto 13.8 % (18.3-44.2); Mean Corpuscular HGB Conc 30.8 g/dl (32-36); Mean Corpuscular Hemoglobin 29.9 pg (26-34); Mean Corpuscular Volume 97.3 fl (80-100); Monocytes Absolute Auto 0.5 K/mm3 (0.1-0.6); Monocytes Percent Auto 8.4 % (2.6-8.5); Neutrophils Absolute Auto 4.6 K/mm3 (1.3-6.7); Neutrophils Percent Auto 75.9 % (45.5-73.1); Platelet Count Result 246 k/mm3 (150-375); Red Blood Count 2.94 M/mm3 (4.6-6.20); Red Cell Distribution Width 13.2 % (11.5-14.5); White Blood Count 6.1 K/mm3 (4.5-10.0)
[2020-09-01 06:47] LABS: Alanine Aminotransferase 55 U/L (4-50); Alkaline Phosphatase 54 U/L (38-126); Anion Gap 8 mmol/L (8-16); Aspartate Amino Transferase 116 U/L (17-59); Bilirubin,Total 0.3 mg/dL (0.2-1.3); Blood Urea Nitrogen 40 mg/dL (9-20); Carbon Dioxide 27 mmol/L (22-30); Chloride 116 mmol/L (98-107); Estimated CRCL calculation 24 ml/min; Estimated Glomerular Filt Rate 22; Glucose 105 mg/dL (75-110); Potassium 3.9 mmol/L (3.4-5.0); Sodium 151 mmol/L (137-145)
[2020-09-01] MEDS: LACTATED RINGERS 1,000 ML 70 ML IV CONT (07:10)
[2020-09-01 08:45] LABS: Atypical Lymphocytes Present; Platelet Estimate Adequate (Adequate)
[2020-09-01] MEDS: APIXABAN 5 MG TABLET PO ×2 (09:10→17:11)
[2020-09-01] MEDS: METOPROLOL SUCCINATE EXT REL 25 MG TABCR PO (09:10)
[2020-09-01] MEDS: ATORVASTATIN 40 MG TABLET PO (09:10)
[2020-09-01] MEDS: PRIMIDONE 250 MG TABLET PO ×4 (09:10→21:44)
[2020-09-01] MEDS: ACETAMINOPHEN 325 MG TABLET 650 MG PO ×4 (09:14→21:45)
--- NOTE | 2020-09-01 11:41 | PM.CNNEP ---
Assessment and Plan Assessment and plan (1) RENETTA (acute kidney injury): Code(s): N17.9 - Acute kidney failure, unspecified Status: Acute Assessment and Plan: The patient has acute kidney injury. His baseline creatinine is normal. His renal ultrasound is normal. His bladder ultrasound does show some debris. His urinalysis shows blood and protein in the urine. He possibly was dehydrated on admission and has received some IV fluids. His creatinine improved initially but recently has jumped up. Because of the debris in his bladder I wonder if he has an obstruction so will place a Nair and see if that helps. His sodium level is high speaking in favor of continued dehydration. Will see what urine electrolytes show. The patient has COVID and so could have RENETTA from this. However he does not have much in the way of hemodynamic or respiratory compromise so far. Blood in urine cultures are negative so does not seem like he has got a bacterial source causing RENETTA. allergic interstitial nephritis would be less likely because it is a little early in the hospital stay for this and also the rapid rise of the creatinine speaks against this as well. Glomerulonephritis is a possibility but is unlikely in this setting. The patient is on Eliquis so is unlikely to have a vascular issue. (2) COVID-19 virus infection: Code(s): U07.1 - COVID-19 Status: Acute Assessment and Plan: The patient is getting supportive care (3) Hypertension: Qualifiers: Hypertension type: unspecified Qualified Code(s): I10 - Essential (primary) hypertension Code(s): I10 - Essential (primary) hypertension Status: Chronic Assessment and Plan: Blood pressure is under pretty good control. (4) Hematoma of left knee region: Code(s): S80.02XA - Contusion of left knee, initial encounter Status: Acute Assessment and Plan: Supportive care (5) Altered mental status: Qualifiers: Altered mental status type: unspecified Qualified Code(s): R41.82 - Altered mental status, unspecified Code(s): R41.82 - Altered mental status, unspecified Status: Acute Assessment and Plan: This continues. Sodium level is high which can contribute to this. B12, folate, TSH are okay. Brain MRI was unremarkable. 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 Patient was admitted to the hospital a few days ago with change in mental status. [facility] and apparently his mental status had changed but it is not clear what his baseline was. In the emergency room he was evaluated. He was find found to be confused and possibly a little bit dehydrated. He had a swollen left knee and was complaining of left knee pain. The knee was tapped and did not show very much. He had a CT of the brain which was negative. COVID test was positive. He was admitted to the floor. His creatinine improved at 1st from 1.9-1.6 but then the last couple of days it shara to above 2 so renal consultation was requested. He cannot give a history. He does answer some yes no questions but fatigues easily. He does not seem
[2020-09-01] MEDS: DEXTROSE 5% 1,000 ML 1,000 ML 100 ML IV CONT ×2 (12:14→21:50)
--- NOTE | 2020-09-01 13:04 | PM.IMPN ---
Progress Note: A&P Assessment and Plan (1) Acute respiratory failure with hypoxia: Code(s): J96.01 - Acute respiratory failure with hypoxia Status: Acute Assessment and Plan: Patient has been stable on 3.5-4L but better today at 3L. CXR yesterday reviewed showing persistent patchy bilateral airspace disease. COVID positive so suspect more likely COVID but having high fevers now. More tachypneic related to fever. Hx of recent DVT; felt PE less likely but we did resume Eliquis 08/30. BCx NGTD. Started on broad spectrum abx. Wean O2 as tolerated. Check influenza. (2) Acute encephalopathy: Code(s): G93.40 - Encephalopathy, unspecified Status: Acute Assessment and Plan: It is unknown exactly with the patient's baseline mental status is although half-way staff had stated that the patient was more confused. Altered mental status may be secondary to acute dehydration vs. Parkinson's disease vs infectious process/COVID. His CT brain was unremarkable 08/27 and no change on 08/29. MRI brain showing no acute findings. B12, folate and TSH normal. CRP elevated related to COVID. We cut back primidone and requip to see if this improved somnolence but no change. Neuro following and appreciate their input. Encephalopathy related to COVID? Abx adjusted. Continue to follow. (3) COVID-19 virus infection: Code(s): U07.1 - COVID-19 Status: Acute Assessment and Plan: Patient presumably had COVID 2 weeks ago but COVID test negative on 08/12 here. Unclear when (or if) he was positive. Now having fevers and COVID positive 08/28. CXR 08/31 reviewed showing no change in bilateral airspace disease. On abx to cover for bacterial PNA and aspiration given his diagnosis of Parkinsons. Cultures NGTD. BCx repeated and remain negative. Abx adjusted. (4) Hematoma of left knee region: Code(s): S80.02XA - Contusion of left knee, initial encounter Status: Acute Assessment and Plan: Patient with subacute hematoma around the left knee from a recent fall and anticoagulants. He did have left swelling earlier this month as well. Anticoagulation was stopped and he is s/p debridement 08/28. Appreciate ortho input. Continue pain control using non-narcotics. Eliquis has been resumed. (5) Acute renal failure: Qualifiers: Acute renal failure type: unspecified Qualified Code(s): N17.9 - Acute kidney failure, unspecified Code(s): N17.9 - Acute kidney failure, unspecified Status: Acute Assessment and Plan: BUN 42 and Cr 1.9 on admission. Likely prerenal from dehydration treated with IV fluids. Cr improved to 1.6 but worse yesterday at 2.1. LR started. Renal US showing nml kidneys and debris in the bladder. Cr worse again today at 2.8 for unclear reasons. ATN? Nephrolgy consulted and recommended Nair to exclude obstruction. Avoid nephrotoxic agents and renally dose medications. Continue IV fluids. (6) Parkinsons: Code(s): G20 - Parkinson's disease Status: Chronic Assessment and Plan: Stable. Not on Sinemet on admission nor was he on Sinemet last hospitalization. On high dose primidone and was on this last admission. Also on ropinirole at night that is the same as last admission. We cut back some med doses but thee has been no change in his mental status. Continue to follow (7) Hyperlipidemia: Qualifiers: Hyperlipidemia type: unspecified Qualified Code(s): E78.5 - Hyperlipidemia, unspecified Code(s): E78.5 - Hyperlipidemia, unspecified Status: Chronic Assessment and Plan: Stable. LFTs worse again due to COVID. Will hold Lipitor. (8) Hypertension: Qualifiers: Hypertension type: unspecified Qualified Code(s): I10 - Essential (primary) hypertension Code(s): I10 - Essential (primary) hypertension Status: Chronic Assessment and Plan:
[2020-09-01 13:11] LABS: Creatine Kinase 690 U/L (55-170)
[2020-09-01 13:19] LABS: Complement C3 131 mg/dL (88-165)
--- NOTE | 2020-09-01 14:30 | PM.PNORT ---
Progress Note: A&P Additional Plan POST PREPATELLA HEMATOMA EVACUATION WITH INTERMITTENT FEVERS. CONTINUE DRESSING CHANGES. WILL FOLLOW. Subjective Subjective Date/Time Seen: 09/01/20 14:30 S/P EVACUATION OF HEMATOMA. SPIKING FEVERS. POSSIBLY DUE TO COVID. NO CALF PAIN Exam Extrem: Other: VSS FEBRILE TODAY 08/31 AT 39.3. CURRENTLY AFEBRILE. DRESSING DRY CALF SOFT Objective Data Vital Signs Vital Signs: Vital Signs - 24 hr 08/31/20 16:00 08/31/20 20:00 08/31/20 21:49 Temperature 37.1 C 39.3 C H 39.3 C H Pulse Rate 74 112 H Respiratory Rate 20 32 H Blood Pressure 132/60 138/82 Pulse Oximetry 97 92 08/31/20 23:30 09/01/20 00:00 09/01/20 00:05 Temperature 37.1 C 36.6 C 36.9 C Pulse Rate 87 84 Respiratory Rate 20 20 Blood Pressure 119/60 Pulse Oximetry 94 95 09/01/20 04:00 09/01/20 08:00 09/01/20 09:14 Temperature 37.2 C 38.9 C H 38.8 C H Pulse Rate 99 104 H Respiratory Rate 28 H 20 Blood Pressure 131/74 147/68 H Pulse Oximetry 96 97 09/01/20 12:00 Temperature 37.8 C H Pulse Rate 88 Respiratory Rate 18 Blood Pressure 110/59 L Pulse Oximetry 94 Intake/Output Intake/Output: Intake & Output 08/29/20 08/30/20 08/31/20 09/01/20 23:59 23:59 23:59 23:59 Intake Total 1994 1909 1390 1160 Output Total 450 Balance 1545 0 1390 1160 Meds/Results Medications: Active Medications Generic Name Dose Route Start Last Admin Trade Name Freq PRN Reason Stop Dose Admin Acetaminophen 650 mg 08/27/20 21:36 09/01/20 09:14 Acetaminophen 325 Mg Tablet PO 650 mg Q4H PRN Administration Mild Pain (1-3) or Fever Apixaban 5 mg 08/28/20 09:00 09/01/20 09:10 Apixaban 5 Mg Tablet PO 5 mg BID ANABEL Administration Atorvastatin Calcium 40 mg 08/28/20 09:00 09/01/20 09:10 Atorvastatin 40 Mg Tablet PO 40 mg DAILY ANABEL Administration Cefepime HCl 1 gm in 50 mls @ 100 mls/hr 08/31/20 14:00 09/01/20 02:00 Maxipime 1 Gm/D5w 50 Ml IVPB Infused Q12H ANABEL Infusion Dextrose 1,000 mls @ 100 mls/hr 09/01/20 12:00 09/01/20 12:14 Dextrose 5% 1,000 Ml IV CONT 100 mls/hr .Q10H ANABEL Administration Metoprolol Succinate 25 mg 08/28/20 09:00 09/01/20 09:10 Metoprolol Succinate Ext Rel 25 Mg Tabcr PO 25 mg DAILY ANABEL Administration Primidone 250 mg 08/29/20 17:00 09/01/20 12:18 Primidone 250 Mg Tablet PO 250 mg QID ANABEL Administration Ropinirole HCl 2 mg 08/29/20 21:00 08/31/20 20:58 Ropinirole Hcl 1 Mg Tablet PO 2 mg HS ANABEL Administration Radiology Results: ITS Impressions Knee X-Ray 08/27/20 16:47 IMPRESSION: 1. Persistent prominent dense prepatellar soft tissue swelling which could represent contusion/hematoma or cellulitis. 2. No acute osseous abnormality or definitive left knee joint effusion. Head CT 08/29/20 15:47 IMPRESSION: 1. Stable mild nonspecific cerebral white matter disease, which likely represents chronic small vessel ischemic disease. Chest X-Ray 08/31/20 06:44 IMPRESSION: Stable patchy bilateral primarily mid and lower lung zone infiltrates and/atelectasis Renal Ultrasound 08/31/20 15:18 IMPRESSION: 1. Normal kidneys without hydronephrosis. 2. Small amount of hypoechoic debris versus less likely wall thickening along the posterior inferior wall of the bladder. Correlate with urinalysis and if indicated cystoscopy could be obtained for further evaluation. Brain MRI 08/31/20 15:37 IMPRESSION: 1. Mild nonspecific cerebral white matter disease, which likely represents chronic small vessel ischemic disease. Labs Labs: Laboratory Results - last 24 hr 09/01/20 09/01/20 09/01/20 05:52 05:52 12:40 WBC 6.1 RBC 2.94 L Hgb 8.8 L Hct 28.6 L MCV 97.3 MCH 29.9 MCHC 30.8 L RDW 13.2 Plt Count 246 MPV 11.0 H Immature Gran % (Auto) 0.8 H Neut % (Auto) 75.9 H Lymph % (Auto) 13.8 L Nolan % (Auto) 8.4 Eos % (Auto) 0.8 B
[2020-09-01 14:42] LABS: Hepatitis B Surface Anti Res Negative; Hepatitis C Virus Antibody Negative (Negative)
[2020-09-01 16:45] LABS: Creatinine Urine 104.3 mg/dL; Total Protein Urine Random 77 mg/dL
[2020-09-01 16:46] LABS: Sodium Urine Random 44 meq/L
[2020-09-01 17:03] LABS: Hepatitis B Surface Antigen Negative (Negative)
[2020-09-01] MEDS: rOPINIRole HCL 1 MG TABLET 2 MG PO (21:44)
[2020-09-02] VITALS (8 sets, daily range): BP systolic 125–152; BP diastolic 59–74; PULSE 76–88; RESP 18–22; TEMP 36.4–37.5; O2SAT 90–100
[2020-09-02 07:58] LABS: Alanine Aminotransferase 51 U/L (4-50); Albumin Level 2.9 g/dL (3.5-5.1); Alkaline Phosphatase 54 U/L (38-126); Anion Gap 7 mmol/L (8-16); Aspartate Amino Transferase 100 U/L (17-59); Bilirubin,Total 0.3 mg/dL (0.2-1.3); Blood Urea Nitrogen 42 mg/dL (9-20); Calcium 8.1 mg/dL (8.4-10.2); Carbon Dioxide 25 mmol/L (22-30); Chloride 114 mmol/L (98-107); Creatine Kinase 379 U/L (55-170); Estimated CRCL calculation 25 ml/min; Estimated Glomerular Filt Rate 23; Glucose 120 mg/dL (75-110); Lactate Dehydrogenase 1077 U/L (313-618); Magnesium 2.2 mg/dL (1.6-2.3); Phosphorus 3.4 mg/dL (2.5-4.5); Potassium 3.8 mmol/L (3.4-5.0); Sodium 146 mmol/L (137-145)
[2020-09-02 08:36] LABS: CRP 25.6 mg/dL (<1.0)
[2020-09-02] MEDS: DEXTROSE 5% 1,000 ML 1,000 ML 100 ML IV CONT ×2 (08:38→17:07)
[2020-09-02] MEDS: METOPROLOL SUCCINATE EXT REL 25 MG TABCR PO (08:39)
[2020-09-02] MEDS: PRIMIDONE 250 MG TABLET PO ×4 (08:40→20:26)
[2020-09-02] MEDS: APIXABAN 5 MG TABLET PO ×2 (08:40→17:37)
[2020-09-02] MEDS: ACETAMINOPHEN 325 MG TABLET 650 MG PO (08:40)
--- NOTE | 2020-09-02 11:20 | PM.PNNEP ---
Progress Note: A&P Assessment and Plan (1) RENETTA (acute kidney injury): Code(s): N17.9 - Acute kidney failure, unspecified Status: Acute Assessment and Plan: The patient has acute kidney injury. His baseline creatinine is normal. His renal ultrasound is normal. His bladder ultrasound does show some debris. A catheter was placed and there was not much urine in the bladder. so will remove. His urinalysis shows blood and protein in the urine. Urine electrolytes show borderline pre renal azotemia. His sodium level is high speaking in favor of continued dehydration. The patient has COVID which can also cause RENETTA. His blood pressure looks okay. His sodium is improving with the D5W. And creatinine is down a little bit as well. Will continue with the same therapy. (2) COVID-19 virus infection: Code(s): U07.1 - COVID-19 Status: Acute Assessment and Plan: The patient is getting supportive care He is on isolation (3) Hypertension: Qualifiers: Hypertension type: unspecified Qualified Code(s): I10 - Essential (primary) hypertension Code(s): I10 - Essential (primary) hypertension Status: Chronic Assessment and Plan: Blood pressure is under pretty good control. (4) Hematoma of left knee region: Code(s): S80.02XA - Contusion of left knee, initial encounter Status: Acute Assessment and Plan: Supportive care Orthopedic surgery is on the case. (5) Altered mental status: Qualifiers: Altered mental status type: unspecified Qualified Code(s): R41.82 - Altered mental status, unspecified Code(s): R41.82 - Altered mental status, unspecified Status: Acute Assessment and Plan: This continues. Sodium level is high which can contribute to this. B12, folate, TSH are okay. Brain MRI was unremarkable. Continue D5W (6) Acute respiratory failure with hypoxia: Code(s): J96.01 - Acute respiratory failure with hypoxia Status: Acute Assessment and Plan: Patient is breathing comfortably on nasal cannula (7) Chronic anticoagulation: Code(s): Z79.01 - custodial (current) use of anticoagulants Status: Acute Assessment and Plan: He is on Eliquis Subjective Date/time seen: 09/02/20 11:20 Interval history: Patient is sleepy today. No shortness of breath or pain. Review of Systems Cardiovascular: Cardiovascular: Reports no additional cardiovascular complaints Respiratory: Respiratory: Reports no additional respiratory complaints Gastrointestinal: Gastrointestinal: Reports no additional gastrointestinal complaints Genitourinary: Genitourinary: Reports no additional male genitourinary complaints Exam Narrative: Exam Narrative: WDWN in NAD skin no rash or subcu nodules head ncat lungs clear bilaterally cor reg no rub abd BS+ nontender and soft ext no edema. Objective Data Vital Signs Vital Signs: Vital Signs - 24 hr 09/01/20 12:00 09/01/20 14:36 09/01/20 16:00 Temperature 37.8 C H 37.5 C 37.7 C H Pulse Rate 88 60 Respiratory Rate 18 18 Blood Pressure 110/59 L 118/61 Pulse Oximetry 94 92 09/01/20 20:00 09/02/20 00:00 09/02/20 04:00 Temperature 36.6 C 37.4 C 36.4 C L Pulse Rate 86 78 82 Respiratory Rate 20 22 H 22 H Blood Pressure 152/60 H 125/59 L 130/62 Pulse Oximetry 97 95 100 09/02/20 08:00 09/02/20 08:40 Temperature 37.3 C 37.5 C Pulse Rate 85 Respiratory Rate 20 Blood Pressure 152/73 H Pulse Oximetry 100 Intake/Output Intake/Output: Intake & Output 08/30/20 08/31/20 09/01/20 09/02/20 23:59 23:59 23:59 23:59 Intake Total 1910 1390 2510 1530 Output Total 300 650 Balance 1910 1390 2210 880 Meds/Results Medications: Active Medications Generic Name Dose Route Start Last Admin Trade Name Brianna PRN Reason Stop Dose Admin Acetaminophen 650 mg 08/27/20 21:36 09/02/20 08:40 Acetaminophen 325 Mg Tablet
--- NOTE | 2020-09-02 17:27 | PM.IMPN ---
Progress Note: A&P Assessment and Plan (1) Acute respiratory failure with hypoxia: Code(s): J96.01 - Acute respiratory failure with hypoxia Status: Acute Assessment and Plan: Patient has been stable on 2-3L. CXR 08/31 reviewed showing persistent patchy bilateral airspace disease. Suspect more likely PNA +/- COVID. Was having high fevers but improved. More tachypneic related to fever. Hx of recent DVT; felt PE less likely but we did resume Eliquis 08/30. Started on broad spectrum abx. All Cx NGTD. Wean O2 as tolerated. Influenza pending. (2) Acute encephalopathy: Code(s): G93.40 - Encephalopathy, unspecified Status: Acute Assessment and Plan: It is unknown exactly with the patient's baseline mental status is although [facility] staff had stated that the patient was more confused. Altered mental status may be secondary to acute dehydration vs. Parkinson's disease vs infectious process/COVID. His CT brain was unremarkable 08/27 and no change on 08/29. MRI brain 08/31showing no acute findings. B12, folate and TSH normal. CRP elevated related to COVID. We cut back primidone and requip to see if this improved somnolence but no change. Fever and dehydration with elevated Na contributed to his confusion. Neuro following and appreciate their input. Symptoms better. Follow. (3) Pneumonia: Code(s): J18.9 - Pneumonia, unspecified organism Status: Acute Assessment and Plan: On abx to cover for bacterial PNA and aspiration given his diagnosis of Parkinsons. Cultures NGTD. BCx repeated and remain negative. Contnue Abx for now. Wean O2 as toelrated. (4) COVID-19 virus infection: Code(s): U07.1 - COVID-19 Status: Acute Assessment and Plan: Patient presumably had COVID 2 weeks ago but COVID test negative on 08/12 here. Unclear when (or if) he was positive. Now having fevers and COVID positive 08/28. CXR 08/31 reviewed showing no change in bilateral airspace disease. Decadron held since can be COVID positive for many weeks and unclear when he first tested positive. Fevers could be from hematome (less likely) or from bacterial PNA as well. (5) Hematoma of left knee region: Code(s): S80.02XA - Contusion of left knee, initial encounter Status: Acute Assessment and Plan: Patient with subacute hematoma around the left knee from a recent fall and anticoagulants. He did have left swelling earlier this month as well. Anticoagulation was stopped and he is s/p debridement 08/28. Appreciate ortho input. Continue pain control using non-narcotics. Eliquis has been resumed. (6) Acute renal failure: Qualifiers: Acute renal failure type: unspecified Qualified Code(s): N17.9 - Acute kidney failure, unspecified Code(s): N17.9 - Acute kidney failure, unspecified Status: Acute Assessment and Plan: BUN 42 and Cr 1.9 on admission. Likely prerenal from dehydration treated with IV fluids. Cr improved to 1.6 but worsened to 2.1. LR started. Renal US showing nml kidneys and debris in the bladder. Cr climbed to 2.8 probably from dehydration (poor oral intake and insensible losses from fever). Nephrology consulted and appreciate their input. Nair placed but no evidence of obstruction. Cr better today slightly. Avoid nephrotoxic agents and renally dose medications. Continue IV fluids. (7) Parkinsons: Code(s): G20 - Parkinson's disease Status: Chronic Assessment and Plan: Stable. Not on Sinemet on admission nor was he on Sinemet last hospitalization. On high dose primidone and was on this last admission. Also on ropinirole at night that is the same as last admission. We cut back some med doses but thee has been no change in his mental status. Continue to follow (8) Hyperlipidemia: Qualifiers: Hyperlipidemia type: unspecified Qualified Code(s): E78.5 - Hyperlip
[2020-09-02] MEDS: rOPINIRole HCL 1 MG TABLET 2 MG PO (20:26)
[2020-09-03] VITALS (8 sets, daily range): BP systolic 128–141; BP diastolic 48–76; PULSE 62–88; RESP 18–28; TEMP 36.1–37.2; O2SAT 95–100
[2020-09-03 00:05] LABS: Influenza Control Positive
[2020-09-03] MEDS: DEXTROSE 5% 1,000 ML 1,000 ML 100 ML IV CONT ×2 (01:22→16:05)
[2020-09-03 08:16] LABS: Hemoglobin 7.6 g/dL (14.0-18.0); Mean Corpuscular Volume 93.9 fl (80-100); Mean Platelet Volume 10.9 fl (7.4-10.4); Platelet Count Result 235 k/mm3 (150-375); Red Blood Count 2.45 M/mm3 (4.6-6.20); Red Cell Distribution Width 13.1 % (11.5-14.5); White Blood Count 6.1 K/mm3 (4.5-10.0)
[2020-09-03] MEDS: APIXABAN 5 MG TABLET PO ×2 (08:29→16:06)
[2020-09-03] MEDS: PRIMIDONE 250 MG TABLET PO ×4 (08:29→21:09)
[2020-09-03] MEDS: METOPROLOL SUCCINATE EXT REL 25 MG TABCR PO (08:29)
[2020-09-03 08:32] LABS: Alanine Aminotransferase 46 U/L (4-50); Albumin Level 2.7 g/dL (3.5-5.1); Alkaline Phosphatase 56 U/L (38-126); Anion Gap 5 mmol/L (8-16); Aspartate Amino Transferase 77 U/L (17-59); Bilirubin,Total 0.3 mg/dL (0.2-1.3); Blood Urea Nitrogen 38 mg/dL (9-20); Calcium 7.8 mg/dL (8.4-10.2); Carbon Dioxide 26 mmol/L (22-30); Chloride 107 mmol/L (98-107); Estimated CRCL calculation 31 ml/min; Estimated Glomerular Filt Rate 29; Glucose 125 mg/dL (75-110); Lactate Dehydrogenase 809 U/L (313-618); Potassium 3.4 mmol/L (3.4-5.0); Sodium 138 mmol/L (137-145)
--- NOTE | 2020-09-03 12:47 | PM.PNORT ---
Progress Note: A&P Assessment and Plan (1) Hematoma of left knee region: Code(s): S80.02XA - Contusion of left knee, initial encounter Status: Acute Assessment and Plan: POD #6: Evacuation of the left knee prepatellar hematoma Continue daily dressing changes. Monitor drainage. Continue Ice. Elevate on pillows. Continue pain control. PWB LLE with PT/OT, Walker when able to participate. HIGH Fall Risk. (2) Frequent falls: Code(s): R29.6 - Repeated falls Status: Acute Subjective Subjective Date/Time Seen: 09/03/20 12:47 POD #6: I&D Left Knee Hematoma No complaints. Feels his pain in his knee is better. Awake. Review of Systems Musculoskeletal: Musculoskeletal: Reports arthralgias (left knee ), Reports joint swelling (left knee ) and Reports limited range of motion (left knee ) Exam Const: General: comfortable Skin: General skin exam: normal color (left knee ) and no erythema (left knee ) Neuro: Cognition (Neuro): normal cognition Extrem: Left lower extremity: knee Details: abnormal to inspection, tenderness (diffuse, improved ), swelling Location: of the patella and of the pre-patellar area, abnormal ROM Details: pain with active ROM Details: with extension and with flexion and pain with passive ROM Details: with extension and with flexion and crepitus Location: at the patella Other: No redness, warmth to the left anterior knee. Continued swelling. Incision noted, no active drainage. Old dried blood on bandage. Objective Data Vital Signs Vital Signs: Vital Signs - 24 hr 09/02/20 16:00 09/02/20 20:00 09/02/20 20:40 Temperature 36.4 C L 37.4 C Pulse Rate 86 88 Respiratory Rate 20 20 Blood Pressure 137/74 141/73 H Pulse Oximetry 92 93 98 09/03/20 00:30 09/03/20 05:00 09/03/20 08:00 Temperature 37.2 C 37.1 C 36.1 C L Pulse Rate 84 88 78 Respiratory Rate 20 20 18 Blood Pressure 138/64 133/57 L 128/62 Pulse Oximetry 100 98 97 09/03/20 08:29 09/03/20 08:30 09/03/20 12:00 Temperature 36.1 C L Pulse Rate 84 84 Respiratory Rate 18 Blood Pressure 138/76 Pulse Oximetry 98 95 Intake/Output Intake/Output: Intake & Output 08/31/20 09/01/20 09/02/20 09/03/20 23:59 23:59 23:59 23:59 Intake Total 1390 2510 3340 1200 Output Total 300 1350 Balance 1390 2210 1990 1200 Meds/Results Medications: Active Medications Generic Name Dose Route Start Last Admin Trade Name Freq PRN Reason Stop Dose Admin Acetaminophen 650 mg 08/27/20 21:36 09/02/20 08:40 Acetaminophen 325 Mg Tablet PO 650 mg Q4H PRN Administration Mild Pain (1-3) or Fever Apixaban 5 mg 08/28/20 09:00 09/03/20 08:29 Apixaban 5 Mg Tablet PO 5 mg BID ANABEL Administration Atorvastatin Calcium 40 mg 08/28/20 09:00 09/01/20 09:10 Atorvastatin 40 Mg Tablet PO 40 mg DAILY ANABEL Administration Cefepime HCl 1 gm in 50 mls @ 100 mls/hr 08/31/20 14:00 09/03/20 01:13 Maxipime 1 Gm/D5w 50 Ml IVPB Infused Q12H ANABEL Infusion Dextrose 1,000 mls @ 100 mls/hr 09/01/20 12:00 09/03/20 01:22 Dextrose 5% 1,000 Ml IV CONT 100 mls/hr .Q10H ANABEL Administration Metoprolol Succinate 25 mg 08/28/20 09:00 09/03/20 08:29 Metoprolol Succinate Ext Rel 25 Mg Tabcr PO 25 mg DAILY ANABEL Administration Primidone 250 mg 08/29/20 17:00 09/03/20 12:36 Primidone 250 Mg Tablet PO 250 mg QID ANABEL Administration Ropinirole HCl 2 mg 08/29/20 21:00 09/02/20 20:26 Ropinirole Hcl 1 Mg Tablet PO 2 mg HS ANABEL Administration Radiology Results: ITS Impressions Knee X-Ray 08/27/20 16:47 IMPRESSION: 1. Persistent prominent dense prepatellar soft tissue swelling which could represent contusion/hematoma or cellulitis. 2. No acute osseous abnormality or definitive left knee joint effusion. Head CT 08/29/20 15:47 IMPRESSION: 1. Stable mild nonspecific cerebral white matter disease, which likely represents chronic small vessel ische
--- NOTE | 2020-09-03 14:52 | PM.IMPN ---
Progress Note: A&P Assessment and Plan (1) Acute respiratory failure with hypoxia: Code(s): J96.01 - Acute respiratory failure with hypoxia Status: Acute Assessment and Plan: Patient has been stable on 2-3L. CXR 08/31 reviewed showing persistent patchy bilateral airspace disease. Suspect more likely PNA +/- COVID. Was having high fevers but improved. More tachypneic related to fever. Hx of recent DVT; felt PE less likely but we did resume Eliquis 08/30. Started on broad spectrum abx. All Cx NGTD. Wean O2 as tolerated. Influenza negative. (2) Acute encephalopathy: Code(s): G93.40 - Encephalopathy, unspecified Status: Acute Assessment and Plan: It is unknown exactly with the patient's baseline mental status is although [facility] staff had stated that the patient was more confused. Altered mental status may be secondary to acute dehydration vs. Parkinson's disease vs infectious process/COVID. His CT brain was unremarkable 08/27 and no change on 08/29. MRI brain 08/31showing no acute findings. B12, folate and TSH normal. CRP elevated related to COVID vs PNA. Fever and dehydration with elevated Na contributed to his confusion. Neuro following and appreciate their input. Symptoms better. Follow. (3) Pneumonia: Code(s): J18.9 - Pneumonia, unspecified organism Status: Acute Assessment and Plan: CXR on admission showing RML/RLL airspace disease. Serial CXR showing more focal findings and concern for bacterial. On abx to cover for bacterial PNA and aspiration given his diagnosis of Parkinsons. Cultures NGTD. Fevers have resolved. BCx repeated and remain negative. Continue Abx for now. Could still all be related to COVID. (4) COVID-19 virus infection: Code(s): U07.1 - COVID-19 Status: Acute Assessment and Plan: Patient presumably had COVID 2 weeks ago Per ED note but COVID test negative on 08/12 here. Unclear when he was positive. Called [facility] but the nurse I spoke with was unsure when he was positive. COVID positive 08/28 but he can be positive for awhile. Given that he was positive 2 weeks ago, we held off on Decadron. CXR 08/31 reviewed showing no change in bilateral airspace disease and concern for more likely bacterial PNA then viral. (5) Hematoma of left knee region: Code(s): S80.02XA - Contusion of left knee, initial encounter Status: Acute Assessment and Plan: Patient with subacute hematoma around the left knee from a recent fall and anticoagulants. He did have left swelling earlier this month as well. Anticoagulation was stopped and he is s/p debridement 08/28. Cultures remain negative. Appreciate ortho input. Continue pain control using non-narcotics. Eliquis has been resumed. PT/OT (6) Acute renal failure: Qualifiers: Acute renal failure type: unspecified Qualified Code(s): N17.9 - Acute kidney failure, unspecified Code(s): N17.9 - Acute kidney failure, unspecified Status: Acute Assessment and Plan: BUN 42 and Cr 1.9 on admission. Likely prerenal from dehydration treated with IV fluids. Cr improved to 1.6 but worsened to 2.1. LR started. Renal US showing nml kidneys and debris in the bladder. Cr climbed to 2.8 probably from dehydration (poor oral intake and insensible losses from fever). Nephrology consulted and appreciate their input. Nair placed but no evidence of obstruction so this was removed. Cr better today at 2.2. Avoid nephrotoxic agents and renally dose medications. Continue IV fluids. (7) Parkinsons: Code(s): G20 - Parkinson's disease Status: Chronic Assessment and Plan: Stable. Not on Sinemet on admission nor was he on Sinemet last hospitalization. On high dose primidone and was on this last admission. Also on ropinirole at night that is the same dose as last admission. We cut back these medication doses but there h
[2020-09-03] MEDS: rOPINIRole HCL 1 MG TABLET 2 MG PO (21:09)
[2020-09-04] VITALS (9 sets, daily range): BP systolic 136–148; BP diastolic 57–92; PULSE 88–98; RESP 16–22; TEMP 36.1–37.7; O2SAT 95–100; BMI 11.0
[2020-09-04] MEDS: DEXTROSE 5% 1,000 ML 1,000 ML 100 ML IV CONT (01:59)
[2020-09-04 06:36] LABS: Hematocrit 26.9 % (42.0-52.0); Hemoglobin 8.6 g/dL (14.0-18.0); Mean Corpuscular Hemoglobin 29.7 pg (26-34); Mean Corpuscular Volume 92.8 fl (80-100); Platelet Count Result 269 k/mm3 (150-375); Red Cell Distribution Width 12.9 % (11.5-14.5); White Blood Count 6.8 K/mm3 (4.5-10.0)
[2020-09-04 06:49] LABS: Alanine Aminotransferase 45 U/L (4-50); Albumin Level 2.8 g/dL (3.5-5.1); Alkaline Phosphatase 69 U/L (38-126); Anion Gap 3 mmol/L (8-16); Aspartate Amino Transferase 68 U/L (17-59); Bilirubin,Total 0.3 mg/dL (0.2-1.3); Blood Urea Nitrogen 36 mg/dL (9-20); Calcium 8.1 mg/dL (8.4-10.2); Carbon Dioxide 29 mmol/L (22-30); Chloride 106 mmol/L (98-107); Estimated CRCL calculation 35 ml/min; Estimated Glomerular Filt Rate 35; Glucose 121 mg/dL (75-110); Potassium 3.3 mmol/L (3.4-5.0); Sodium 138 mmol/L (137-145)
[2020-09-04] MEDS: APIXABAN 5 MG TABLET PO ×2 (08:14→17:59)
[2020-09-04] MEDS: POTASSIUM CHLORIDE 20 MEQ TABLET 40 MEQ PO (08:14)
[2020-09-04] MEDS: PRIMIDONE 250 MG TABLET PO ×4 (08:15→20:15)
[2020-09-04] MEDS: METOPROLOL SUCCINATE EXT REL 25 MG TABCR PO (08:15)
[2020-09-04] MEDS: ATORVASTATIN 40 MG TABLET PO (08:22)
--- NOTE | 2020-09-04 08:59 | PM.PNNEP ---
Progress Note: A&P Assessment and Plan (1) RENETTA (acute kidney injury): Code(s): N17.9 - Acute kidney failure, unspecified Status: Acute Assessment and Plan: The patient has acute kidney injury. His baseline creatinine is normal. His renal ultrasound is normal. His bladder ultrasound does show some debris. But there is no obstruction. His urinalysis shows blood and protein in the urine. Urine electrolytes show borderline pre renal azotemia. His sodium level is high speaking in favor of continued dehydration. This has improved to normal. The patient has COVID which can also cause RENETTA. His blood pressure looks okay. His sodium is improving with the D5W. And creatinine continues to improve. Will cut D5W down to50cc an hour. (2) COVID-19 virus infection: Code(s): U07.1 - COVID-19 Status: Acute Assessment and Plan: The patient is getting supportive care He is on isolation (3) Hypertension: Qualifiers: Hypertension type: unspecified Qualified Code(s): I10 - Essential (primary) hypertension Code(s): I10 - Essential (primary) hypertension Status: Chronic Assessment and Plan: Blood pressure is under pretty good control. (4) Hematoma of left knee region: Code(s): S80.02XA - Contusion of left knee, initial encounter Status: Acute Assessment and Plan: Supportive care Orthopedic surgery is on the case. (5) Altered mental status: Qualifiers: Altered mental status type: unspecified Qualified Code(s): R41.82 - Altered mental status, unspecified Code(s): R41.82 - Altered mental status, unspecified Status: Acute Assessment and Plan: This is better today. He is still a bit confused. Sodium level is better B12, folate, TSH are okay. Brain MRI was unremarkable. Continue D5W but at a lower rate (6) Acute respiratory failure with hypoxia: Code(s): J96.01 - Acute respiratory failure with hypoxia Status: Acute Assessment and Plan: Patient is breathing comfortably on nasal cannula He is on 4L of oxygen. 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 No shortness of breath or pain. He still has a cough. No itching or rash. Review of Systems Cardiovascular: Cardiovascular: Reports no additional cardiovascular complaints Respiratory: Respiratory: Reports no additional respiratory complaints Gastrointestinal: Gastrointestinal: Reports no additional gastrointestinal complaints Genitourinary: Genitourinary: Reports no additional male genitourinary complaints Exam Narrative: Exam Narrative: WDWN in NAD skin no rash head ncat lungs clear bilaterally cor reg no rub abd BS+ nontender and soft ext no edema or cyanosis. Objective Data Vital Signs Vital Signs: Vital Signs - 24 hr 09/03/20 12:00 09/03/20 16:00 09/03/20 20:00 Temperature 36.1 C L 36.2 C L 36.7 C Pulse Rate 84 62 82 Respiratory Rate 18 28 H 22 H Blood Pressure 138/76 141/48 H 134/76 Pulse Oximetry 95 99 97 09/04/20 00:00 09/04/20 04:00 09/04/20 08:00 Temperature 36.8 C 36.9 C Pulse Rate 92 88 Respiratory Rate 22 H 22 H Blood Pressure 140/72 139/57 L Pulse Oximetry 95 100 100 09/04/20 08:15 Temperature Pulse Rate 88 Respiratory Rate Blood Pressure Pulse Oximetry Intake/Output Intake/Output: Intake & Output 09/01/20 09/02/20 09/03/20 09/04/20 23:59 23:59 23:59 23:59 Intake Total 2510 3340 2610 1150 Output Total 300 1350 Balance 2210 1990 2610 1150 Meds/Results Medications: Active Medications Generic Name Dose Route Start Last Admin Trade Name Otonielq PRN Reason Stop Dose Admin Acetaminophen 650 mg 08/27/20 21:36 09/02/20 08:40 Acetaminophen
[2020-09-04 12:57] LABS: Kappa\\Lambda Light Chains 1.63 (0.26-1.65); Lambda Light Chain 61.1 mg/L (5.7-26.3)
--- NOTE | 2020-09-04 12:58 | PM.IMPN ---
Progress Note: A&P Assessment and Plan (1) Acute respiratory failure with hypoxia: Code(s): J96.01 - Acute respiratory failure with hypoxia Status: Acute Assessment and Plan: Patient has been stable on 2-3L. CXR 08/31 reviewed showing persistent patchy bilateral airspace disease. Suspect more likely PNA +/- COVID. Was having high fevers but improved. More tachypneic related to fever. Hx of recent DVT; felt PE less likely but did resume Eliquis 08/30. Started on broad spectrum abx. All Cx NGTD. Wean O2 as tolerated. Influenza negative. (2) Acute encephalopathy: Code(s): G93.40 - Encephalopathy, unspecified Status: Acute Assessment and Plan: It is unknown exactly with the patient's baseline mental status is although [facility] staff had stated that the patient was more confused. Altered mental status may be secondary to acute dehydration vs. Parkinson's disease vs infectious process/COVID. His CT brain was unremarkable 08/27 and no change on 08/29. MRI brain 08/31showing no acute findings. B12, folate and TSH normal. CRP elevated related to COVID vs PNA. Fever and dehydration with elevated Na contributed to his confusion. Neuro following and appreciate their input. Symptoms better. Follow. (3) Pneumonia: Code(s): J18.9 - Pneumonia, unspecified organism Status: Acute Assessment and Plan: CXR on admission showing RML/RLL airspace disease. Serial CXR showing more focal findings and concern for bacterial. On abx to cover for bacterial PNA and aspiration given his diagnosis of Parkinsons. Cultures NGTD. Fevers have resolved. BCx repeated and remain negative. Continue Abx for now. Could still all be related to COVID. (4) COVID-19 virus infection: Code(s): U07.1 - COVID-19 Status: Acute Assessment and Plan: Patient had COVID dx 08/23 . Given that he was positive 12 days agp , held off on Decadron. CXR 08/31 reviewed showing no change in bilateral airspace disease and concern for more likely bacterial PNA then viral. (5) Hematoma of left knee region: Code(s): S80.02XA - Contusion of left knee, initial encounter Status: Acute Assessment and Plan: Patient with subacute hematoma around the left knee from a recent fall and anticoagulants. He did have left swelling earlier this month as well. Anticoagulation was stopped and he is s/p debridement 08/28. Appreciate ortho input. Continue pain control using non-narcotics. Eliquis has been resumed. PT/OT (6) Acute renal failure: Qualifiers: Acute renal failure type: unspecified Qualified Code(s): N17.9 - Acute kidney failure, unspecified Code(s): N17.9 - Acute kidney failure, unspecified Status: Acute Assessment and Plan: BUN 42 and Cr 1.9 on admission. Likely prerenal from dehydration treated with IV fluids. Cr improved to 1.6 but worsened to 2.1. LR started. Renal US showing nml kidneys and debris in the bladder. Cr climbed to 2.8 probably from dehydration (poor oral intake and insensible losses from fever). Nephrology consulted and appreciate their input. Nair placed but no evidence of obstruction so this was removed. Cr better today at 1.9. Avoid nephrotoxic agents and renally dose medications. Continue IV fluids. (7) Parkinsons: Code(s): G20 - Parkinson's disease Status: Chronic Assessment and Plan: Stable. Not on Sinemet on admission nor was he on Sinemet last hospitalization. On high dose primidone and was on this last admission. Also on ropinirole at night that is the same dose as last admission. We cut back these medication doses but there has been no change in his mental status. Continue to follow. (8) Hyperlipidemia: Qualifiers: Hyperlipidemia type: unspecified Qualified Code(s): E78.5 - Hyperlipidemia, unspecified Code(s): E78.5 - Hyperlipidemia, unspecified
[2020-09-04 14:26] LABS: Hepatitis B Core Ab Total Nonreactive (Nonreactive)
[2020-09-04] MEDS: DEXTROSE 5% 1,000 ML 1,000 ML 50 ML IV CONT (14:41)
[2020-09-04] MEDS: rOPINIRole HCL 1 MG TABLET 2 MG PO (20:15)
[2020-09-05] VITALS: BP 130/71; PULSE 100; RESP 22; TEMP 36.9; O2SAT 100
[2020-09-05 04:00] VITALS: BP 129/71; PULSE 78; RESP 22; TEMP 36.9; O2SAT 98
[2020-09-05 08:00] VITALS: BP 143/70; PULSE 95; RESP 16; TEMP 36.1; O2SAT 94; O2SAT 97
[2020-09-05] MEDS: METOPROLOL SUCCINATE EXT REL 25 MG TABCR PO (09:02)
[2020-09-05] MEDS: APIXABAN 5 MG TABLET PO ×2 (09:02→17:30)
[2020-09-05] MEDS: PRIMIDONE 250 MG TABLET PO ×4 (09:02→20:55)
[2020-09-05] MEDS: ATORVASTATIN 40 MG TABLET PO (09:02)
[2020-09-05] MEDS: DEXTROSE 5% 1,000 ML 1,000 ML 50 ML IV CONT (09:16)
[2020-09-05 09:58] LABS: Basophils Percent Auto 0.4 % (0.2-1.2); Eosinophils Absolute Auto 0.2 K/mm3 (0-0.3); Hematocrit 24.6 % (42.0-52.0); Immature Granulocyte Absolute 0.06 K/mm3 (0.00-0.031); Immature Granulocyte Percent A 0.8 % (0-0.5); Lymphocytes Percent Auto 13.1 % (18.3-44.2); Mean Corpuscular HGB Conc 32.5 g/dl (32-36); Mean Corpuscular Hemoglobin 29.5 pg (26-34); Mean Corpuscular Volume 90.8 fl (80-100); Mean Platelet Volume 10.6 fl (7.4-10.4); Monocytes Absolute Auto 0.8 K/mm3 (0.1-0.6); Monocytes Percent Auto 10.4 % (2.6-8.5); Neutrophils Absolute Auto 5.6 K/mm3 (1.3-6.7); Neutrophils Percent Auto 73.3 % (45.5-73.1); Platelet Count Result 307 k/mm3 (150-375); Red Blood Count 2.71 M/mm3 (4.6-6.20); White Blood Count 7.6 K/mm3 (4.5-10.0)
[2020-09-05 10:12] LABS: Anion Gap 4 mmol/L (8-16); Blood Urea Nitrogen 29 mg/dL (9-20); Calcium 8.3 mg/dL (8.4-10.2); Carbon Dioxide 28 mmol/L (22-30); Chloride 106 mmol/L (98-107); Estimated CRCL calculation 42 ml/min; Estimated Glomerular Filt Rate 42; Glucose 124 mg/dL (75-110); Potassium 3.4 mmol/L (3.4-5.0); Sodium 138 mmol/L (137-145)
[2020-09-05 12:00] VITALS: BP 150/78; PULSE 91; RESP 16; TEMP 36.4; O2SAT 95
--- NOTE | 2020-09-05 12:14 | PCNFU ---
Nutrition Follow-Up Complete: Inadequate Protein Intake as related to wounds as evidenced by deep tissue pressure ulcer. Goal: Meet estimated nutritional needs Progressing towards goal. Pt current nutrition is heart healthy. Nutrition recommendation: agree Last recorded weight is 98.3 kg. No new weight reported. Bowel Motility:+BM 09/04 Labs Reviewed:Glu 121,BUN 36,K 3.3,Hct 26.9,Hgb 8.6 Meds Noted:Eliquis,Lipitor,Toprol,Primidone Additional Notes: Nutrition follow up. Spoke with nursing today due to COVID precautions. Patient continues to have decrease intake 0-10% reported. Soft foods have been requested. Diet office is aware. Diet supplements continue Ghanshyam BID and Ensure Enlive once daily, provided for increased protein needs and wound healing due to Deep Tissue reported. Monitoring: Will monitor every 5 days.
--- NOTE | 2020-09-05 13:55 | WPDINFPN2 ---
Progress Note: A&P Assessment and Plan (1) Hematoma of left knee region: Code(s): S80.02XA - Contusion of left knee, initial encounter Status: Acute Assessment and Plan: Hematoma L patella, no infection despite + culture REC No rx needed. Call if other Qs Subjective Date/time seen: 09/05/20 13:55 Objective Data Vital Signs Vital Signs: Vital Signs - 24 hr 09/04/20 16:00 09/04/20 18:17 09/04/20 20:00 Temperature 36.7 C 37.7 C H Pulse Rate 98 96 Respiratory Rate 18 22 H Blood Pressure 148/92 H 136/71 Pulse Oximetry 98 96 97 09/05/20 00:00 09/05/20 04:00 09/05/20 08:00 Temperature 36.9 C 36.9 C 36.1 C L Pulse Rate 100 78 95 Respiratory Rate 22 H 22 H 16 Blood Pressure 130/71 129/71 143/70 H Pulse Oximetry 100 98 94 09/05/20 12:00 Temperature 36.4 C Pulse Rate 91 Respiratory Rate 16 Blood Pressure 150/78 H Pulse Oximetry 95 Intake/Output Intake/Output: Intake & Output 09/02/20 09/03/20 09/04/20 09/05/20 23:59 23:59 23:59 23:59 Intake Total 3340 2610 2330 1150 Output Total 1350 Balance 1989 2610 2330 1150 Meds/Results Medications: Active Medications Generic Name Dose Route Start Last Admin Trade Name Freq PRN Reason Stop Dose Admin Acetaminophen 650 mg 08/27/20 21:36 09/02/20 08:40 Acetaminophen 325 Mg Tablet PO 650 mg Q4H PRN Administration Mild Pain (1-3) or Fever Apixaban 5 mg 08/28/20 09:00 09/05/20 09:02 Apixaban 5 Mg Tablet PO 5 mg BID ANABEL Administration Atorvastatin Calcium 40 mg 08/28/20 09:00 09/05/20 09:02 Atorvastatin 40 Mg Tablet PO 40 mg DAILY ANABEL Administration Cefepime HCl 1 gm in 50 mls @ 100 mls/hr 08/31/20 14:00 09/05/20 12:32 Maxipime 1 Gm/D5w 50 Ml IVPB 100 mls/hr Q12H ANABEL Administration Dextrose 1,000 mls @ 50 mls/hr 09/01/20 12:00 09/05/20 09:16 Dextrose 5% 1,000 Ml IV CONT 50 mls/hr .Q20H ANABEL Administration Metoprolol Succinate 25 mg 08/28/20 09:00 09/05/20 09:02 Metoprolol Succinate Ext Rel 25 Mg Tabcr PO 25 mg DAILY ANABEL Administration Primidone 250 mg 08/29/20 17:00 09/05/20 12:32 Primidone 250 Mg Tablet PO 250 mg QID ANABEL Administration Ropinirole HCl 2 mg 08/29/20 21:00 09/04/20 20:15 Ropinirole Hcl 1 Mg Tablet PO 2 mg HS ANABEL Administration Radiology Results: ITS Impressions Knee X-Ray 08/27/20 16:47 IMPRESSION: 1. Persistent prominent dense prepatellar soft tissue swelling which could represent contusion/hematoma or cellulitis. 2. No acute osseous abnormality or definitive left knee joint effusion. Head CT 08/29/20 15:47 IMPRESSION: 1. Stable mild nonspecific cerebral white matter disease, which likely represents chronic small vessel ischemic disease. Renal Ultrasound 08/31/20 15:18 IMPRESSION: 1. Normal kidneys without hydronephrosis. 2. Small amount of hypoechoic debris versus less likely wall thickening along the posterior inferior wall of the bladder. Correlate with urinalysis and if indicated cystoscopy could be obtained for further evaluation. Brain MRI 08/31/20 15:37 IMPRESSION: 1. Mild nonspecific cerebral white matter disease, which likely represents chronic small vessel ischemic disease. Chest X-Ray 09/04/20 07:51 IMPRESSION: Small to moderate amount of bilateral ill-defined acute airspace disease. Labs Labs: Laboratory Results - last 24 hr 08/28/20 09/01/20 09/01/20 16:30 12:40 12:40 WBC RBC Hgb Hct MCV MCH MCHC RDW Plt Count MPV Immature Gran % (Auto) Neut % (Auto) Lymph % (Auto) Banner % (Auto) Eos % (Auto) Baso % (Auto) Lymph # (Auto) Banner # (Auto) Eos # (Auto) Baso # (Auto) Abs Immat Gran (auto) Absolute Neuts (auto) Absolute Nucleated RBC Nucleated RBC % Sodium Potassium Chloride Carbon Dioxide Anion Gap BUN Creatinine Estim Creat Clear Calc Estimated
[2020-09-05 16:00] VITALS: BP 146/76; PULSE 87; RESP 16; TEMP 36.1; O2SAT 98
--- NOTE | 2020-09-05 17:36 | PM.IMPN ---
Progress Note: A&P Assessment and Plan (1) Acute respiratory failure with hypoxia: Code(s): J96.01 - Acute respiratory failure with hypoxia Status: Acute Assessment and Plan: Patient has been stable on 2-3L. CXR 08/31 reviewed showing persistent patchy bilateral airspace disease. Suspect more likely PNA +/- COVID. Was having high fevers but improved. More tachypneic related to fever. Hx of recent DVT; felt PE less likely but did resume Eliquis 08/30. Started on broad spectrum abx. All Cx NGTD. Weaning O2 as tolerated. Influenza negative. (2) Acute encephalopathy: Code(s): G93.40 - Encephalopathy, unspecified Status: Acute Assessment and Plan: It is unknown exactly with the patient's baseline mental status is although custodial staff had stated that the patient was more confused. Altered mental status may be secondary to acute dehydration vs. Parkinson's disease vs infectious process/COVID. His CT brain was unremarkable 08/27 and no change on 08/29. MRI brain 08/31showing no acute findings. B12, folate and TSH normal. CRP elevated related to COVID vs PNA. Fever and dehydration with elevated Na contributed to his confusion. . Symptoms better. Follow. (3) Pneumonia: Code(s): J18.9 - Pneumonia, unspecified organism Status: Acute Assessment and Plan: CXR on admission showing RML/RLL airspace disease. Serial CXR showing more focal findings and concern for bacterial. On abx to cover for bacterial PNA and aspiration given his diagnosis of Parkinsons. Cultures NGTD. Fevers have resolved. BCx repeated and remain negative. Continue Abx for now. Could still all be related to COVID. (4) COVID-19 virus infection: Code(s): U07.1 - COVID-19 Status: Acute Assessment and Plan: Patient had COVID dx 08/23 . Given that he was positive 13 days agp , held off on Decadron. CXR 08/31 reviewed showing no change in bilateral airspace disease and concern for more likely bacterial PNA then viral. (5) Hematoma of left knee region: Code(s): S80.02XA - Contusion of left knee, initial encounter Status: Acute Assessment and Plan: Patient with subacute hematoma around the left knee from a recent fall and anticoagulants. He did have left swelling earlier this month as well. Anticoagulation was stopped and he is s/p debridement 08/28. Appreciate ortho input. Continue pain control using non-narcotics. Eliquis has been resumed. PT/OT culture grew propriobacterium acne and ID felt was a contaminant with no need for further treatment (6) Acute renal failure: Qualifiers: Acute renal failure type: unspecified Qualified Code(s): N17.9 - Acute kidney failure, unspecified Code(s): N17.9 - Acute kidney failure, unspecified Status: Acute Assessment and Plan: BUN 42 and Cr 1.9 on admission. Likely prerenal from dehydration treated with IV fluids. Cr improved to 1.6 but worsened to 2.1. LR started. Renal US showing nml kidneys and debris in the bladder. Cr climbed to 2.8 probably from dehydration (poor oral intake and insensible losses from fever). Nephrology consulted and appreciate their input. Nair placed but no evidence of obstruction so this was removed. Cr better today at 1.6. Avoid nephrotoxic agents and renally dose medications. Continue IV fluids. (7) Parkinsons: Code(s): G20 - Parkinson's disease Status: Chronic Assessment and Plan: Stable. Not on Sinemet on admission nor was he on Sinemet last hospitalization. On high dose primidone and was on this last admission. Also on ropinirole at night that is the same dose as last admission. We cut back these medication doses but there has been no change in his mental status. Continue to follow. (8) Hyperlipidemia: Qualifiers: Hyperlipidemia type: unspecified Qualified Code(s): E78.5 - Hyperlipidemia, unsp
--- NOTE | 2020-09-05 18:13 | PM.PNNEP ---
Progress Note: A&P Assessment and Plan (1) RENETTA (acute kidney injury): Code(s): N17.9 - Acute kidney failure, unspecified Status: Acute Assessment and Plan: The patient has acute kidney injury. His baseline creatinine is normal. His renal ultrasound is normal. His bladder ultrasound does show some debris. But there is no obstruction. His urinalysis shows blood and protein in the urine. Urine electrolytes show borderline pre renal azotemia. His sodium level has improved. The patient has COVID which can also cause RENETTA. His blood pressure looks okay. His sodium is improving with the D5W. And creatinine continues to improve. Will keep D5W at 50cc an hour. (2) COVID-19 virus infection: Code(s): U07.1 - COVID-19 Status: Acute Assessment and Plan: The patient is getting supportive care He is on isolation (3) Hypertension: Qualifiers: Hypertension type: unspecified Qualified Code(s): I10 - Essential (primary) hypertension Code(s): I10 - Essential (primary) hypertension Status: Chronic Assessment and Plan: Blood pressure is under pretty good control. (4) Hematoma of left knee region: Code(s): S80.02XA - Contusion of left knee, initial encounter Status: Acute Assessment and Plan: Supportive care Orthopedic surgery is on the case. (5) Altered mental status: Qualifiers: Altered mental status type: unspecified Qualified Code(s): R41.82 - Altered mental status, unspecified Code(s): R41.82 - Altered mental status, unspecified Status: Acute Assessment and Plan: This is better today. He is still a bit confused. Sodium level is better B12, folate, TSH are okay. Brain MRI was unremarkable. Continue D5W but at a lower rate (6) Acute respiratory failure with hypoxia: Code(s): J96.01 - Acute respiratory failure with hypoxia Status: Acute Assessment and Plan: Patient is breathing comfortably on nasal cannula He is on 4L of oxygen. (7) Chronic anticoagulation: Code(s): Z79.01 - residential (current) use of anticoagulants Status: Acute Assessment and Plan: He is on Eliquis Subjective Date/time seen: 09/05/20 18:13 Interval history: Patient is awake. No shortness of breath or pain. His cough is better. No itching or rash. Review of Systems Cardiovascular: Cardiovascular: Reports no additional cardiovascular complaints Respiratory: Respiratory: Reports no additional respiratory complaints Gastrointestinal: Gastrointestinal: Reports no additional gastrointestinal complaints Genitourinary: Genitourinary: Reports no additional male genitourinary complaints Exam Narrative: Exam Narrative: WDWN in NAD skin no rash head ncat lungs clear bilaterally cor reg no rub abd BS+ nontender and soft ext no edema or cyanosis. Objective Data Vital Signs Vital Signs: Vital Signs - 24 hr 09/04/20 18:17 09/04/20 20:00 09/05/20 00:00 Temperature 37.7 C H 36.9 C Pulse Rate 96 100 Respiratory Rate 22 H 22 H Blood Pressure 136/71 130/71 Pulse Oximetry 96 97 100 09/05/20 04:00 09/05/20 08:00 09/05/20 12:00 Temperature 36.9 C 36.1 C L 36.4 C Pulse Rate 78 95 91 Respiratory Rate 22 H 16 16 Blood Pressure 129/71 143/70 H 150/78 H Pulse Oximetry 98 94 95 09/05/20 16:00 Temperature 36.1 C L Pulse Rate 87 Respiratory Rate 16 Blood Pressure 146/76 H Pulse Oximetry 98 Intake/Output Intake/Output: Intake & Output 09/02/20 09/03/20 09/04/20 09/05/20 23:59 23:59 23:59 23:59 Intake Total 3340 2610 2330 1320 Output Total 1350 Balance 1989 2610 2330 1320 Meds/Results Medications: Active Medications Generic Name Dose Route Start Last Admin Trade Name Freq PRN Reason Stop Dose Admin Acetaminophen 650 mg 08/27/20 21:36 09/02/20 08:40 Acetaminophen 325 Mg Tablet PO 650 mg Q4H PRN Administration Mild Pain
--- NOTE | 2020-09-05 18:22 | CONS_ITS ---
DATE OF CONSULTATION: 09/05/2020 REASON FOR CONSULTATION: Positive fluid culture. HISTORY OF PRESENT ILLNESS: The patient is a 75-year-old male, who cannot provide any history at the present time. He originally was admitted on August 27 with disorientation and left knee pain. Here, he has been found to have a hematoma of the left patella, has undergone aspiration and debridement, which was performed on the from the prepatellar bursa. Cultures revealed propionibacterium. Consultation now requested. While here, he has been found to have Coronavirus infection and has also been given cefepime for suspected healthcare-associated pneumonia. He has been febrile as noted above. ALLERGIES: NONE KNOWN. PRESENT MEDICATIONS: No immunosuppressants. HABITS: Ex-smoker. No alcohol. PAST MEDICAL HISTORY: Parkinson, melanoma, macular degeneration, depression, prior diverticulitis, DVT, [place], childhood polio, hyperlipidemia, hypertension, coronary stents, and tonsillectomy. REVIEW OF SYSTEMS: 5-point review attempted, not obtainable from the patient because of lethargy. FAMILY HISTORY: Not pertinent to his present illness. SOCIAL HISTORY: . His is not present at the bedside. 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 PHYSICAL EXAMINATION: GENERAL: This is an elderly male, who appears his actual age. No acute distress. VITAL SIGNS: Afebrile on arrival and up to 38.1 the following day and up to 39.4 on the , 38.9 the following day and in the last 24 hours of 37.7, 91, 16, 95%, 150/78. SKIN: No rashes. EENT: Conjunctivae are clear. No petechiae. NECK: He has no adenopathy. LUNGS: Clear to auscultation. CARDIAC: Regular rate and rhythm. No murmur, gallop. ABDOMEN: Obese, nontender. No masses. EXTREMITIES: Without edema. MUSCULOSKELETAL: He has ecchymosis and fluctuance over the anterior left knee. No warmth, tenderness, draining sinus tracts. LABORATORY DATA: From the operating room, he had rare growth of propionibacterium. Gram stain, no organism seen. Blood cultures final, no growth. Blood cultures repeated on the , also no growth. White count has been normal, hemoglobin 8.0, platelets are 307. Chemistry panel is normal except for elevated BUN and creatinine and elevated glucose. Albumin 2.8. RADIOLOGY: Knee x-ray performed on arrival, soft tissue swelling, otherwise normal. ASSESSMENT: 1. Traumatic hematoma of the anterior left knee, particularly involving the bursa. There is no evidence of infection. The propionibacterium is normal skin jackelin and in this patient I do not think is causing illness. 2. Coronavirus infection and possible healthcare-associated pneumonia, on treatment. RECOMMENDATIONS: 1. No treatment needed for the propionibacterium nor any other pathogens in the left knee. 2. Other therapy under discussion. Please call if further questions arise. KASIA BRAVO M.D. CRM DYNAMICS DEVELOPER CRM DYNAMICS DEVELOPER D I MT: Meg
[2020-09-05 20:00] VITALS: BP 147/89; PULSE 98; RESP 20; TEMP 36.8; O2SAT 97
[2020-09-05] MEDS: rOPINIRole HCL 1 MG TABLET 2 MG PO (20:55)
[2020-09-05] MEDS: ACETAMINOPHEN 325 MG TABLET 650 MG PO (23:24)
[2020-09-06] VITALS (7 sets, daily range): BP systolic 127–150; BP diastolic 67–78; PULSE 85–99; RESP 18–20; TEMP 36.1–36.6; O2SAT 94–97
[2020-09-06] MEDS: DEXTROSE 5% 1,000 ML 1,000 ML 50 ML IV CONT (02:34)
[2020-09-06 06:26] LABS: Basophils Percent Auto 0.4 % (0.2-1.2); Eosinophils Absolute Auto 0.1 K/mm3 (0-0.3); Eosinophils Percent Auto 1.8 % (0-4.4); Hematocrit 25.4 % (42.0-52.0); Hemoglobin 8.3 g/dL (14.0-18.0); Immature Granulocyte Absolute 0.07 K/mm3 (0.00-0.031); Immature Granulocyte Percent A 0.9 % (0-0.5); Lymphocytes Absolute Auto 1.24 K/mm3 (0.9-3.2); Lymphocytes Percent Auto 15.6 % (18.3-44.2); Mean Corpuscular HGB Conc 32.7 g/dl (32-36); Mean Corpuscular Volume 94.8 fl (80-100); Mean Platelet Volume 10.6 fl (7.4-10.4); Monocytes Absolute Auto 0.9 K/mm3 (0.1-0.6); Monocytes Percent Auto 11.5 % (2.6-8.5); Neutrophils Absolute Auto 5.5 K/mm3 (1.3-6.7); Neutrophils Percent Auto 69.8 % (45.5-73.1); Platelet Count Result 344 k/mm3 (150-375); Red Blood Count 2.68 M/mm3 (4.6-6.20); Red Cell Distribution Width 13.2 % (11.5-14.5); White Blood Count 7.9 K/mm3 (4.5-10.0)
[2020-09-06 06:42] LABS: Anion Gap 6 mmol/L (8-16); Blood Urea Nitrogen 27 mg/dL (9-20); Calcium 8.4 mg/dL (8.4-10.2); Carbon Dioxide 29 mmol/L (22-30); Chloride 104 mmol/L (98-107); Estimated CRCL calculation 42 ml/min; Estimated Glomerular Filt Rate 42; Glucose 119 mg/dL (75-110); Potassium 3.4 mmol/L (3.4-5.0); Sodium 139 mmol/L (137-145)
[2020-09-06] MEDS: ACETAMINOPHEN 325 MG TABLET 650 MG PO (08:29)
[2020-09-06] MEDS: ATORVASTATIN 40 MG TABLET PO (08:30)
[2020-09-06] MEDS: METOPROLOL SUCCINATE EXT REL 25 MG TABCR PO (08:30)
[2020-09-06] MEDS: APIXABAN 5 MG TABLET PO ×2 (08:30→15:59)
[2020-09-06] MEDS: POTASSIUM CHLORIDE 20 MEQ TABLET 40 MEQ PO (08:30)
[2020-09-06] MEDS: PRIMIDONE 250 MG TABLET PO ×4 (08:30→20:50)
[2020-09-06 12:43] LABS: Complement Total CH50 58 U/mL (31-60)
--- NOTE | 2020-09-06 13:00 | PM.IMPN ---
Progress Note: A&P Assessment and Plan (1) Acute respiratory failure with hypoxia: Code(s): J96.01 - Acute respiratory failure with hypoxia Status: Acute Assessment and Plan: Patient has been stable on 2-3L. CXR 08/31 reviewed showing persistent patchy bilateral airspace disease. Suspect more likely PNA +/- COVID. Was having high fevers but improved. . Hx of recent DVT; felt PE less likely but did resume Eliquis 08/30. Started on broad spectrum abx. All Cx NGTD. Weaning O2 and down to 1 L now. . Influenza negative. (2) Acute encephalopathy: Code(s): G93.40 - Encephalopathy, unspecified Status: Acute Assessment and Plan: It is unknown exactly with the patient's baseline mental status is although senior living staff had stated that the patient was more confused. Altered mental status may be secondary to acute dehydration vs. Parkinson's disease vs infectious process/COVID. His CT brain was unremarkable 08/27 and no change on 08/29. MRI brain 08/31showing no acute findings. B12, folate and TSH normal. CRP elevated related to COVID vs PNA. Fever and dehydration with elevated Na contributed to his confusion. . Symptoms better. Follow. (3) Pneumonia: Code(s): J18.9 - Pneumonia, unspecified organism Status: Acute Assessment and Plan: CXR on admission showing RML/RLL airspace disease. Serial CXR showing more focal findings and concern for bacterial. On abx to cover for bacterial PNA and aspiration given his diagnosis of Parkinsons. Cultures NGTD. Fevers have resolved. BCx repeated and remain negative. Continued Abx for full 7 days. Could still all be related to COVID. (4) COVID-19 virus infection: Code(s): U07.1 - COVID-19 Status: Acute Assessment and Plan: Patient had COVID dx 08/23 . Given that he was positive 13 days agp , held off on Decadron. CXR 08/31 reviewed showing no change in bilateral airspace disease and concern for more likely bacterial PNA then viral. (5) Hematoma of left knee region: Code(s): S80.02XA - Contusion of left knee, initial encounter Status: Acute Assessment and Plan: Patient with subacute hematoma around the left knee from a recent fall and anticoagulants. He did have left swelling earlier this month as well. Anticoagulation was stopped and he is s/p debridement 08/28. Appreciate ortho input. Continue pain control using non-narcotics. Eliquis has been resumed. PT/OT culture grew propriobacterium acne and ID felt was a contaminant with no need for further treatment (6) Acute renal failure: Qualifiers: Acute renal failure type: unspecified Qualified Code(s): N17.9 - Acute kidney failure, unspecified Code(s): N17.9 - Acute kidney failure, unspecified Status: Acute Assessment and Plan: BUN 42 and Cr 1.9 on admission. Likely prerenal from dehydration treated with IV fluids. Cr improved to 1.6 but worsened to 2.1. LR started. Renal US showing nml kidneys and debris in the bladder. Cr climbed to 2.8 probably from dehydration (poor oral intake and insensible losses from fever). Nephrology consulted and appreciate their input. Nair placed but no evidence of obstruction so this was removed. Cr better today still 1.6. Avoid nephrotoxic agents and renally dose medications. Continue IV fluids. (7) Parkinsons: Code(s): G20 - Parkinson's disease Status: Chronic Assessment and Plan: Stable. Not on Sinemet on admission nor was he on Sinemet last hospitalization. On high dose primidone and was on this last admission. Also on ropinirole at night that is the same dose as last admission. We cut back these medication doses but there has been no change in his mental status. Continue to follow. (8) Hyperlipidemia: Qualifiers: Hyperlipidemia type: unspecified Qualified Code(s): E78.5 - Hyperlipidemia, unspecified
--- NOTE | 2020-09-06 13:11 | PM.PNNEP ---
Progress Note: A&P Assessment and Plan (1) RENETTA (acute kidney injury): Code(s): N17.9 - Acute kidney failure, unspecified Status: Acute Assessment and Plan: The patient has acute kidney injury. His baseline creatinine is normal. His renal ultrasound is normal. His bladder ultrasound does show some debris. But there is no obstruction. His urinalysis shows blood and protein in the urine. Urine electrolytes show borderline pre renal azotemia. The patient has pre renal azotemia, and COVID which can also cause RENETTA. His blood pressure looks okay. (2) COVID-19 virus infection: Code(s): U07.1 - COVID-19 Status: Acute Assessment and Plan: The patient is getting supportive care He is on isolation (3) Hypertension: Qualifiers: Hypertension type: unspecified Qualified Code(s): I10 - Essential (primary) hypertension Code(s): I10 - Essential (primary) hypertension Status: Chronic Assessment and Plan: Blood pressure is under pretty good control. (4) Hematoma of left knee region: Code(s): S80.02XA - Contusion of left knee, initial encounter Status: Acute Assessment and Plan: Supportive care Orthopedic surgery is on the case. (5) Altered mental status: Qualifiers: Altered mental status type: unspecified Qualified Code(s): R41.82 - Altered mental status, unspecified Code(s): R41.82 - Altered mental status, unspecified Status: Acute Assessment and Plan: This is better today. he just seems weak. Sodium level is normalr B12, folate, TSH are okay. Brain MRI was unremarkable. (6) Acute respiratory failure with hypoxia: Code(s): J96.01 - Acute respiratory failure with hypoxia Status: Acute Assessment and Plan: Patient is breathing comfortably on nasal cannula He is on 4L of oxygen. (7) Chronic anticoagulation: Code(s): Z79.01 - shelter (current) use of anticoagulants Status: Acute Assessment and Plan: He is on Eliquis (8) Hypernatremia: Code(s): E87.0 - Hyperosmolality and hypernatremia Status: Acute Assessment and Plan: Sodium level is now normal. Continue D5W at a low rate because he is not eating very well. Subjective Date/time seen: 09/06/20 13:11 Interval history: Patient is awake. he is comfortable but looks weak. No shortness of breath or pain. His cough is better. Eating a little breakfast. Review of Systems Review of Systems: ROS unobtainable: Yes unobtainable due to medical condition Cardiovascular: Cardiovascular: Reports no additional cardiovascular complaints Respiratory: Respiratory: Reports no additional respiratory complaints Gastrointestinal: Gastrointestinal: Reports no additional gastrointestinal complaints Genitourinary: Genitourinary: Reports no additional male genitourinary complaints Exam Narrative: Exam Narrative: WDWN in NAD skin no rash Or subcu nodules head ncat lungs clear bilaterally cor reg no rub abd BS+ nontender and soft ext no edema Objective Data Vital Signs Vital Signs: Vital Signs - 24 hr 09/05/20 16:00 09/05/20 20:00 09/06/20 00:00 Temperature 36.1 C L 36.8 C 36.3 C L Pulse Rate 87 98 95 Respiratory Rate 16 20 20 Blood Pressure 146/76 H 147/89 H 132/67 Pulse Oximetry 98 97 95 09/06/20 04:00 09/06/20 08:00 09/06/20 09:53 Temperature 36.2 C L 36.6 C Pulse Rate 99 85 96 Respiratory Rate 20 18 18 Blood Pressure 135/71 127/76 Pulse Oximetry 94 94 94 Intake/Output Intake/Output: Intake & Output 09/03/20 09/04/20 09/05/20 09/06/20 23:59 23:59 23:59 23:59 Intake Total 2610 2330 1560 1510 Balance 2610 2330 1560 1510 Meds/Results Medications: Active Medications Generic Name Dose Route Start Last Admin Trade Name Otonielq PRN Reason Stop Dose Admin Acetaminophen 650 mg 08/27/20 21:36 09/06/20 08:29 Acetaminophen 325 Mg Ta
[2020-09-06] MEDS: rOPINIRole HCL 1 MG TABLET 2 MG PO (20:49)
[2020-09-07] VITALS (9 sets, daily range): BP systolic 125–152; BP diastolic 33–77; PULSE 92–108; RESP 18–24; TEMP 36.1–37.2; O2SAT 93–98; BMI 11.0
[2020-09-07] MEDS: DEXTROSE 5% 1,000 ML 1,000 ML 50 ML IV CONT ×2 (01:38→17:00)
[2020-09-07 08:06] LABS: Basophils Percent Auto 0.3 % (0.2-1.2); Eosinophils Absolute Auto 0.1 K/mm3 (0-0.3); Eosinophils Percent Auto 1.1 % (0-4.4); Hematocrit 25.9 % (42.0-52.0); Hemoglobin 8.5 g/dL (14.0-18.0); Immature Granulocyte Percent A 1.1 % (0-0.5); Lymphocytes Absolute Auto 1.39 K/mm3 (0.9-3.2); Lymphocytes Percent Auto 15.2 % (18.3-44.2); Mean Corpuscular HGB Conc 32.8 g/dl (32-36); Mean Corpuscular Volume 91.5 fl (80-100); Mean Platelet Volume 10.4 fl (7.4-10.4); Monocytes Percent Auto 11.1 % (2.6-8.5); Neutrophils Absolute Auto 6.5 K/mm3 (1.3-6.7); Neutrophils Percent Auto 71.2 % (45.5-73.1); Platelet Count Result 399 k/mm3 (150-375); Red Blood Count 2.83 M/mm3 (4.6-6.20); Red Cell Distribution Width 13.2 % (11.5-14.5); White Blood Count 9.1 K/mm3 (4.5-10.0)
[2020-09-07 08:18] LABS: Albumin Level 3.1 g/dL (3.5-5.1); Anion Gap 6 mmol/L (8-16); Blood Urea Nitrogen 25 mg/dL (9-20); Calcium 8.4 mg/dL (8.4-10.2); Carbon Dioxide 28 mmol/L (22-30); Chloride 103 mmol/L (98-107); Estimated CRCL calculation 47 ml/min; Estimated Glomerular Filt Rate 49; Glucose 115 mg/dL (75-110); Phosphorus 2.4 mg/dL (2.5-4.5); Potassium 3.7 mmol/L (3.4-5.0); Sodium 137 mmol/L (137-145)
[2020-09-07] MEDS: APIXABAN 5 MG TABLET PO ×2 (08:44→16:55)
[2020-09-07] MEDS: ATORVASTATIN 40 MG TABLET PO (08:44)
[2020-09-07] MEDS: PRIMIDONE 250 MG TABLET PO ×4 (08:44→21:08)
[2020-09-07] MEDS: METOPROLOL SUCCINATE EXT REL 25 MG TABCR PO (08:45)
[2020-09-07 09:03] LABS: Potassium 3.7 mmol/L (3.4-5.0)
[2020-09-07 09:19] LABS: Alanine Aminotransferase 62 U/L (4-50); Albumin Level 3.1 g/dL (3.5-5.1); Alkaline Phosphatase 84 U/L (38-126); Anion Gap 6 mmol/L (8-16); Aspartate Amino Transferase 73 U/L (17-59); Bilirubin,Total 0.4 mg/dL (0.2-1.3); Blood Urea Nitrogen 25 mg/dL (9-20); CRP 7.5 mg/dL (<1.0); Calcium 8.6 mg/dL (8.4-10.2); Carbon Dioxide 28 mmol/L (22-30); Chloride 103 mmol/L (98-107); Estimated CRCL calculation 47 ml/min; Estimated Glomerular Filt Rate 49; Glucose 115 mg/dL (75-110); Lactate Dehydrogenase 666 U/L (313-618); Phosphorus 2.5 mg/dL (2.5-4.5); Sodium 137 mmol/L (137-145)
--- NOTE | 2020-09-07 12:32 | PM.IMPN ---
Progress Note: A&P Assessment and Plan (1) Acute respiratory failure with hypoxia: Code(s): J96.01 - Acute respiratory failure with hypoxia Status: Acute Assessment and Plan: Patient now off , CXR 08/31 reviewed showing persistent patchy bilateral airspace disease. Suspect more likely PNA +/- COVID. Was having high fevers but improved. . Hx of recent DVT; felt PE less likely but did resume Eliquis 08/30. Started on broad spectrum abx.initially, All Cx NGTD. Weaning O2 off . Influenza negative. (2) Acute encephalopathy: Code(s): G93.40 - Encephalopathy, unspecified Status: Acute Assessment and Plan: It is unknown exactly what the patient's baseline mental status is although long term staff had stated that the patient was more confused. Altered mental status may be secondary to acute dehydration vs. Parkinson's disease vs infectious process/COVID. His CT brain was unremarkable 08/27 and no change on 08/29. MRI brain 08/31showing no acute findings. B12, folate and TSH normal. CRP elevated related to COVID vs PNA. Fever and dehydration with elevated Na contributed to his confusion. . Symptoms better. Follow. (3) Pneumonia: Code(s): J18.9 - Pneumonia, unspecified organism Status: Acute Assessment and Plan: CXR on admission showing RML/RLL airspace disease. Serial CXR showing more focal findings and concern for bacterial. On abx to cover for bacterial PNA and aspiration given his diagnosis of Parkinsons. Cultures NGTD. Fevers have resolved. BCx repeated and remain negative. Continued Abx for full 7 days. Could still all be related to COVID. (4) COVID-19 virus infection: Code(s): U07.1 - COVID-19 Status: Acute Assessment and Plan: Patient had COVID dx 08/23 . Given that he was positive several days prior to admission , held off on Decadron. CXR 08/31 reviewed showing no change in bilateral airspace disease and concern for more likely bacterial PNA then viral. (5) Hematoma of left knee region: Code(s): S80.02XA - Contusion of left knee, initial encounter Status: Acute Assessment and Plan: Patient with subacute hematoma around the left knee from a recent fall and anticoagulants. He did have left swelling earlier this month as well. Anticoagulation was stopped and he is s/p debridement 08/28. Appreciate ortho input. Continue pain control using non-narcotics. Eliquis has been resumed. PT/OT culture grew propriobacterium acne and ID felt was a contaminant with no need for further treatment (6) Acute renal failure: Qualifiers: Acute renal failure type: unspecified Qualified Code(s): N17.9 - Acute kidney failure, unspecified Code(s): N17.9 - Acute kidney failure, unspecified Status: Acute Assessment and Plan: BUN 42 and Cr 1.9 on admission. Likely prerenal from dehydration treated with IV fluids. Cr improved to 1.6 but worsened to 2.1. LR started. Renal US showing nml kidneys and debris in the bladder. Cr climbed to 2.8 probably from dehydration (poor oral intake and insensible losses from fever). Nephrology consulted and appreciate their input. Nair placed but no evidence of obstruction so this was removed. Cr better today 1.4. . Continue IV fluids. and d/c 09/08 (7) Parkinsons: Code(s): G20 - Parkinson's disease Status: Chronic Assessment and Plan: Stable. Not on Sinemet on admission nor was he on Sinemet last hospitalization. On high dose primidone and was on this last admission. Also on ropinirole at night that is the same dose as last admission. We cut back these medication doses but there has been no change in his mental status. Continue to follow. (8) Hyperlipidemia: Qualifiers: Hyperlipidemia type: unspecified Qualified Code(s): E78.5 - Hyperlipidemia, unspecified Code(s): E78.5 - Hyperlipidemia, unspecifie
--- NOTE | 2020-09-07 13:04 | PM.PNNEP ---
Progress Note: A&P Assessment and Plan (1) RENETTA (acute kidney injury): Code(s): N17.9 - Acute kidney failure, unspecified Status: Acute Assessment and Plan: The patient has acute kidney injury. His baseline creatinine is normal. His renal ultrasound is normal. His bladder ultrasound does show some debris. But there is no obstruction. His urinalysis shows blood and protein in the urine. Urine electrolytes show borderline pre renal azotemia. The patient has pre renal azotemia, and COVID which can also cause RENETTA. His blood pressure looks okay with a systolic ranging between 120 and 152. His creatinine is down to 1.4. (2) COVID-19 virus infection: Code(s): U07.1 - COVID-19 Status: Acute Assessment and Plan: The patient is getting supportive care He is on isolation (3) Hypertension: Qualifiers: Hypertension type: unspecified Qualified Code(s): I10 - Essential (primary) hypertension Code(s): I10 - Essential (primary) hypertension Status: Chronic Assessment and Plan: Blood pressure is under pretty good control. (4) Hematoma of left knee region: Code(s): S80.02XA - Contusion of left knee, initial encounter Status: Acute Assessment and Plan: Supportive care Orthopedic surgery is on the case. (5) Altered mental status: Qualifiers: Altered mental status type: unspecified Qualified Code(s): R41.82 - Altered mental status, unspecified Code(s): R41.82 - Altered mental status, unspecified Status: Acute Assessment and Plan: Mental status is a little bit worse. (6) Acute respiratory failure with hypoxia: Code(s): J96.01 - Acute respiratory failure with hypoxia Status: Acute Assessment and Plan: Patient is breathing comfortably on nasal cannula Oxygenation is improved. He is on room air. 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 Continue D5W at a low rate because he is not eating very well. Subjective Date/time seen: 09/07/20 13:04 Interval history: Patient is still weak. He is having a little trouble concentrating today. No chest pain or shortness of breath Exam Narrative: Exam Narrative: WDWN in NAD skin no rash Or subcu nodules head ncat lungs clear bilaterally cor reg no rub abd BS+ nontender and soft ext no edema Objective Data Vital Signs Vital Signs: Vital Signs - 24 hr 09/06/20 16:00 09/06/20 20:00 09/07/20 00:00 Temperature 36.2 C L 36.1 C L 36.2 C L Pulse Rate 95 98 95 Respiratory Rate 18 20 18 Blood Pressure 142/78 H 150/73 H 125/33 L Pulse Oximetry 97 96 98 09/07/20 04:00 09/07/20 08:00 09/07/20 08:45 Temperature 36.1 C L 36.1 C L Pulse Rate 92 105 H 92 Respiratory Rate 18 18 Blood Pressure 133/67 152/77 H Pulse Oximetry 93 95 Intake/Output Intake/Output: Intake & Output 09/04/20 09/05/20 09/06/20 09/07/20 23:59 23:59 23:59 23:59 Intake Total 2330 1560 3380 150 Balance 2330 1560 3380 150 Meds/Results Medications: Active Medications Generic Name Dose Route Start Last Admin Trade Name Freq PRN Reason Stop Dose Admin Acetaminophen 650 mg 08/27/20 21:36 09/06/20 08:29 Acetaminophen 325 Mg Tablet PO 650 mg Q4H PRN Administration Mild Pain (1-3) or Fever Apixaban 5 mg 08/28/20 09:00 09/07/20 08:44 Apixaban 5 Mg Tablet PO 5 mg BID ANABEL Administration Atorvastatin Calcium 40 mg 08/28/20 09:00 09/07/20 08:44 Atorvastatin 40 Mg Tablet PO 40 mg DAILY ANABEL Administration Dextrose 1,000 mls @ 50 mls/hr 09/01/20 12:00 09/07/20 01:38 Dextrose 5% 1,000 Ml IV CONT 50 mls/hr .Q20H S
[2020-09-07] MEDS: POTASSIUM PHOS,M-BASIC-D-BASIC 20 MMOL in SODIUM CHLORIDE 0.9% IV 250 ML 64 MMOL IVPB (13:44)
[2020-09-07] MEDS: rOPINIRole HCL 1 MG TABLET 2 MG PO (21:08)
[2020-09-08 06:00] VITALS: BP 141/71; PULSE 98; RESP 22; TEMP 37.3; O2SAT 93
[2020-09-08 06:32] LABS: Basophils Percent Auto 0.4 % (0.2-1.2); Eosinophils Absolute Auto 0.2 K/mm3 (0-0.3); Eosinophils Percent Auto 1.9 % (0-4.4); Hematocrit 25.1 % (42.0-52.0); Hemoglobin 8.1 g/dL (14.0-18.0); Immature Granulocyte Absolute 0.17 K/mm3 (0.00-0.031); Lymphocytes Absolute Auto 1.49 K/mm3 (0.9-3.2); Lymphocytes Percent Auto 17.9 % (18.3-44.2); Mean Corpuscular HGB Conc 32.3 g/dl (32-36); Mean Corpuscular Hemoglobin 29.8 pg (26-34); Mean Corpuscular Volume 92.3 fl (80-100); Mean Platelet Volume 10.4 fl (7.4-10.4); Monocytes Absolute Auto 1.2 K/mm3 (0.1-0.6); Monocytes Percent Auto 13.9 % (2.6-8.5); Neutrophils Absolute Auto 5.3 K/mm3 (1.3-6.7); Neutrophils Percent Auto 63.9 % (45.5-73.1); Platelet Count Result 381 k/mm3 (150-375); Red Blood Count 2.72 M/mm3 (4.6-6.20); Red Cell Distribution Width 13.3 % (11.5-14.5); White Blood Count 8.3 K/mm3 (4.5-10.0)
[2020-09-08 06:50] LABS: Albumin Level 3.1 g/dL (3.5-5.1); Anion Gap 5 mmol/L (8-16); Blood Urea Nitrogen 29 mg/dL (9-20); Calcium 8.4 mg/dL (8.4-10.2); Carbon Dioxide 29 mmol/L (22-30); Chloride 102 mmol/L (98-107); Estimated CRCL calculation 47 ml/min; Estimated Glomerular Filt Rate 49; Glucose 118 mg/dL (75-110); Phosphorus 3.4 mg/dL (2.5-4.5); Potassium 3.7 mmol/L (3.4-5.0); Sodium 136 mmol/L (137-145)
[2020-09-08 08:43] VITALS: PULSE 98
[2020-09-08] MEDS: PRIMIDONE 250 MG TABLET PO ×3 (08:43→16:33)
[2020-09-08] MEDS: APIXABAN 5 MG TABLET PO ×2 (08:43→16:32)
[2020-09-08] MEDS: ATORVASTATIN 40 MG TABLET PO (08:43)
[2020-09-08] MEDS: METOPROLOL SUCCINATE EXT REL 25 MG TABCR PO (08:43)
--- NOTE | 2020-09-08 13:25 | PM.PNNEP ---
Progress Note: A&P Assessment and Plan (1) RENETTA (acute kidney injury): Code(s): N17.9 - Acute kidney failure, unspecified Status: Acute Assessment and Plan: suspect due to volume depletion given evidence to date: - renal ultrasound normal - urine electrolytes are borderline pre-renal creatinine slowly improving with current therapy continue supportive therapy (2) COVID-19 virus infection: Code(s): U07.1 - COVID-19 Status: Acute Assessment and Plan: appears stable continue supportive care He is on isolation (3) Hypertension: Qualifiers: Hypertension type: unspecified Qualified Code(s): I10 - Essential (primary) hypertension Code(s): I10 - Essential (primary) hypertension Status: Chronic Assessment and Plan: blood pressure reasonable follow hemodynamics (4) Altered mental status: Qualifiers: Altered mental status type: unspecified Qualified Code(s): R41.82 - Altered mental status, unspecified Code(s): R41.82 - Altered mental status, unspecified Status: Acute Assessment and Plan: sleepy but answers questions with stimulation follow mentation (5) Hypernatremia: Code(s): E87.0 - Hyperosmolality and hypernatremia Status: Acute Assessment and Plan: sodium normalized if eating/drinking better, no need for further IVFs Will continue to follow. Subjective Date/time seen: 09/08/20 13:25 Sleepy at the time of my visit but awakens to stimulation and seem more aware/talkative than previously noted; no apparent distress noted; no events or issues overnight or earlier this AM. Exam Narrative: Exam Narrative: General: WD/WN male in NAD Heart: normal S1 and S2; no rub Lungs: clear to auscultation Abdomen: soft, nontender, nondistended, positive bowel sounds Extremities: no cyanosis or clubbing; no edema Skin: warm and dry Objective Data Vital Signs Vital Signs: Vital Signs Temp Pulse Resp BP Pulse Ox 09/08/20 08:43 98 09/08/20 06:00 37.3 C 98 22 H 141/71 H 93 09/07/20 22:00 36.8 C 108 H 24 H 133/70 95 09/07/20 20:00 95 09/07/20 16:00 37.2 C 105 H 20 145/75 H 94 09/07/20 14:28 97 Intake/Output Intake/Output: Intake & Output 09/05/20 09/06/20 09/07/20 09/08/20 23:59 23:59 23:59 23:59 Intake Total 1560 3380 1950 1068 Balance 1560 3380 1950 1068 Meds/Results Medications: Active Medications Generic Name Dose Route Start Last Admin Trade Name Freq PRN Reason Stop Dose Admin Acetaminophen 650 mg 08/27/20 21:36 09/06/20 08:29 Acetaminophen 325 Mg Tablet PO 650 mg Q4H PRN Administration Mild Pain (1-3) or Fever Apixaban 5 mg 08/28/20 09:00 09/08/20 08:43 Apixaban 5 Mg Tablet PO 5 mg BID ANABEL Administration Atorvastatin Calcium 40 mg 08/28/20 09:00 09/08/20 08:43 Atorvastatin 40 Mg Tablet PO 40 mg DAILY ANABEL Administration Metoprolol Succinate 25 mg 08/28/20 09:00 09/08/20 08:43 Metoprolol Succinate Ext Rel 25 Mg Tabcr PO 25 mg DAILY ANABEL Administration Primidone 250 mg 08/29/20 17:00 09/08/20 12:27 Primidone 250 Mg Tablet PO 250 mg QID ANABEL Administration Ropinirole HCl 2 mg 08/29/20 21:00 09/07/20 21:08 Ropinirole Hcl 1 Mg Tablet PO 2 mg HS ANABEL Administration Radiology Results: ITS Impressions Knee X-Ray 08/27/20 16:47 IMPRESSION: 1. Persistent prominent dense prepatellar soft tissue swelling which could represent contusion/hematoma or cellulitis. 2. No acute osseous abnormality or definitive left knee joint effusion. Head CT 08/29/20 15:47 IMPRESSION: 1. Stable mild nonspecific cerebral white matter disease, which likely represents chronic small vessel ischemic disease. Renal Ultrasound 08/31/20 15:18 IMPRESSION: 1. Normal kidneys without hydronephrosis. 2. Small amount of hypoechoic debris versu
--- NOTE | 2020-09-08 17:52 | PM.DS ---
DS: Admitting Diagnosis Admitting Diagnosis Admitting Diagnosis: amish, altered mental status DS: Discharge Diagnosis Discharge Diagnosis (1) Acute respiratory failure with hypoxia: Code(s): J96.01 - Acute respiratory failure with hypoxia Status: Acute Assessment and Plan: Patient on room air 94% at discharge, CXR 08/31 reviewed showing persistent patchy bilateral airspace disease. Suspect more likely PNA +/- COVID. Was having high fevers but improved. . Hx of recent DVT; did resume Eliquis 08/30. Started on broad spectrum abx. And treated for 7 full days, All Cx NGTD. . Influenza negative. (2) Acute encephalopathy: Code(s): G93.40 - Encephalopathy, unspecified Status: Acute Assessment and Plan: It is unknown exactly what the patient's baseline mental status is although detention staff had stated that the patient was more confused. Altered mental status may be secondary to acute dehydration vs. Parkinson's disease vs infectious process/COVID. His CT brain was unremarkable 08/27 and no change on 08/29. MRI brain 08/31showing no acute findings. B12, folate and TSH normal. CRP elevated related to COVID vs PNA. Fever and dehydration with elevated Na contributed to his confusion. . Symptoms continued to improve while here. Follow. (3) Pneumonia: Code(s): J18.9 - Pneumonia, unspecified organism Status: Acute Assessment and Plan: CXR on admission showing RML/RLL airspace disease. Serial CXR showing more focal findings and concern for bacterial. On abx to cover for bacterial PNA and aspiration given his diagnosis of Parkinsons. Cultures NGTD. Fevers have resolved. BCx repeated and remain negative. Continued cefepime for full 7 days. Could still all be related to COVID. (4) COVID-19 virus infection: Code(s): U07.1 - COVID-19 Status: Acute Assessment and Plan: Patient had COVID dx 08/23 . Given that he was positive several days prior to admission , held off on Decadron. CXR 08/31 reviewed showing no change in bilateral airspace disease and concern for more likely bacterial PNA then viral. (5) Hematoma of left knee region: Code(s): S80.02XA - Contusion of left knee, initial encounter Status: Acute Assessment and Plan: Patient with subacute hematoma around the left knee from a recent fall and anticoagulants. He did have left swelling earlier this month as well. Anticoagulation was stopped and he is s/p debridement 08/28. Appreciate ortho input. Eliquis was resumed. PT/OT. culture grew propriobacterium acne and ID felt was a contaminant with no need for further treatment (6) Acute renal failure: Qualifiers: Acute renal failure type: unspecified Qualified Code(s): N17.9 - Acute kidney failure, unspecified Code(s): N17.9 - Acute kidney failure, unspecified Status: Acute Assessment and Plan: BUN 42 and Cr 1.9 on admission. Likely prerenal from dehydration treated with IV fluids. Cr improved to 1.6 but worsened to 2.1. LR started. Renal US showing nml kidneys and debris in the bladder. Cr climbed to 2.8 probably from dehydration (poor oral intake and insensible losses from fever). Nephrology consulted and appreciate their input. Nair placed but no evidence of obstruction so this was removed. Cr better and stable at discharge at 1.4. . (7) Parkinsons: Code(s): G20 - Parkinson's disease Status: Chronic Assessment and Plan: Stable. Not on Sinemet on admission nor was he on Sinemet last hospitalization. On high dose primidone and was on this last admission. Also on ropinirole at night that is the same dose as last admission. We cut back these medication doses but there has been no change in his mental status. Continue to follow. (8) Hyperlipidemia: Qualifiers: Hyperlipidemia type: unspecified Qualified Code(s): E78.5 - Hy
[2020-09-14 06:57] LABS: Glucose Synovial Fluid 10 mg/dL
== END 2020-09-08 17:31 | DRG 987 ==
LOC: ANHED 16:14 → ANH2MED 20:44 → ANH3MEDSUR 23:18
PROVIDERS: Internal Medicine; Internal Medicine Nephrology; Nurse Practitioner Family; Admitting Provider Family Medicine; Emergency Provider Emergency Medicine; PCP Internal Medicine; Visit Provider Internal Medicine
DX: U07.1 COVID-19 (principal); J96.01 Acute respiratory failure with hypoxia; J12.89 Other viral pneumonia; J15.9 Unspecified bacterial pneumonia; J69.0 Pneumonitis due to inhalation of food and vomit; N17.9 Acute kidney failure, unspecified; E87.0 Hyperosmolality and hypernatremia; I82.411 Acute embolism and thrombosis of right femoral vein; G93.49 Other encephalopathy; S80.02XA Contusion of left knee, initial encounter; G20 Parkinson's disease; H35.30 Unspecified macular degeneration; F41.8 Other specified anxiety disorders; D53.9 Nutritional anemia, unspecified; I10 Essential (primary) hypertension; E86.0 Dehydration; E78.5 Hyperlipidemia, unspecified; W19.XXXA Unspecified fall, initial encounter; L89.159 Pressure ulcer of sacral region, unspecified stage; L89.626 Pressure-induced deep tissue damage of left heel; T45.515A Adverse effect of anticoagulants, initial encounter; I25.10 Atherosclerotic heart disease of native coronary artery without angina pectoris; Z79.01 Long term (current) use of anticoagulants; Z95.5 Presence of coronary angioplasty implant and graft; I25.2 Old myocardial infarction; Z86.12 Personal history of poliomyelitis; Z91.81 History of falling; Z85.820 Personal history of malignant melanoma of skin; Z87.891 Personal history of nicotine dependence
CPT/HCPCS: 36415; 51701; 70450; 70551; 71045; 73562; 76775; 80048; 80053; 80069; 80076; 81001; 82550; 82570; 82607; 82728; 82746; 82945; 83605; 83615; 83735; 83883; 84100; 84156; 84157; 84300; 84443; 84450; 84460; 85025; 85027; 85610; 85730; 85999; 86038; 86140; 86160; 86162; 86334; 86335; 86704; 86706; 86803; 87040; 87070; 87075; 87076; 87086; 87205; 87340; 87635; 87804; 89051; 89060; 92610; 96361; 96365; 96366; 97161; 97166; 97167; 99285; A9270; C9803; G0378; J0692; J2543; J7030; J7050; J7060; J7070; J7120; U0003

== ENCOUNTER 2020-09-12 21:10 | Inpatient (IN) | payer MEDICARE, SELFPAY ==
--- NOTE | ~2020-09-12 | XR_ITS ---
EXAMINATION: XR chest 1V portable INDICATION: Transient alteration of awareness TECHNIQUE: Portable AP chest at 2155 hours COMPARISON: 09/04/2020 FINDINGS: Patchy bilateral airspace opacities persist but have improved. There is no pleural effusion or pneumothorax. Stable cardiomegaly is noted. There is mild osteoarthritis of the shoulders. IMPRESSION: 1. Persistent but improved bilateral airspace opacities, consistent with resolving pneumonia. Reviewed, dictated and finalized at location A. MEDICAL IMPRESSION: 1. Persistent but improved bilateral airspace opacities, consistent with resolv ing pneumonia.
--- NOTE | ~2020-09-12 | XR_ITS ---
EXAMINATION: XR chest port-a-cath/central EXAM DATE: 09/20/2020 17:30 INDICATION: Insertion tunnel catheter. TECHNIQUE: Portable AP frontal chest x-ray was obtained. Comparison is made to prior examination from 09/17/2020. FINDINGS: There is a new right-sided IJ approach tunneled catheter overlying expected position. There is cardiomegaly. Low lung volume with pulmonary vascular crowding. Small amount of bibasilar atelect asis or infiltrate. No pneumothorax or sizable pleural effusion. There are mild bony degenerative remy nges. There are no bony erosions identified. IMPRESSION: 1. Low volume with pulmonary vascular crowding. 2. Small amount of bilateral atelectasis or infiltrate. 3. No evidence postprocedure pneumothorax. Reviewed, dictated and finalized at location A. TIC SURGERY TECHNICIAN
--- NOTE | ~2020-09-12 | US_ITS ---
EXAMINATION: US renal BI DATE: 09/15/2020 10:02 INDICATION: Acute kidney injury TECHNIQUE: Multiple grayscale and Doppler ultrasound images of the kidneys were obtained. COMPARISON: 08/31/2020 FINDINGS: The right kidney measures 12.4 x 6.4 x 6.2 cm and contains a 3.4 cm cyst. The left kidney m easures 12.1 x 5.4 x 6.4 cm. The kidneys demonstrate normal parenchymal echogenicity. There is no hyd ronephrosis. The bladder is decompressed by Nair catheter.. IMPRESSION: 1. Normal kidneys without hydronephrosis. Reviewed, dictated and finalized at location A. X NETWORK SYSTEMS ADMINISTRATOR
--- NOTE | ~2020-09-12 | XR_ITS ---
EXAMINATION: XR chest 1V portable DATE: 09/23/2020 07:23 INDICATION: Leukocytosis. TECHNIQUE: A single frontal view of the chest was obtained. COMPARISON: Chest single view 09/20/2020, CT abdomen and pelvis 08/07/2013 FINDINGS: Again seen is elevation of right hemidiaphragm. There are airspace opacities in right midlu ng zone. No pleural effusion or pneumothorax. The heart size is normal. A right internal jugular cent ral venous catheter is seen with tip in the right atrium. IMPRESSION: 1. Persistent airspace opacities in right midlung zone, consistent with pneumonia. Reviewed, dictated and finalized at location A. FARM GAUGER IMPRESSION: 1. Persistent airspace opacities in right midlung zone, consistent with pneumon ia.
--- NOTE | ~2020-09-12 | XR_ITS ---
EXAMINATION: XR fl guide central line place EXAM DATE: 09/20/2020 16:52 INDICATION: Insertion of tunneled dialysis catheter right side. TECHNIQUE: Fluoroscopy used during XR fl guide central line place performed by Dr. Sherry Higuera. The DAP for this procedure was 0.22 mGym2. FINDINGS: There is a right-sided IJ venous catheter line overlying expected position. Correlate wit h procedure note. IMPRESSION: Fluoroscopy used during XR fl guide central line place. Reviewed, dictated and finalized at location A. K PRINT OPERATOR
--- NOTE | ~2020-09-12 | XR_ITS ---
EXAMINATION: XR chest port-a-cath/central INDICATION: Dialysis catheter placement TECHNIQUE: Portable AP chest at 1423 hours COMPARISON: 0227 hours FINDINGS: A right internal jugular catheter has been placed which ends with its tip in the distal sup erior vena cava. No pneumothorax is identified. The lung volumes are low. There is mild elevation of the right hemidiaphragm. No pleural effusion is identified. Stable cardiomegaly is noted. There are p ersistent but improved airspace opacities in the right mid and left lower lung zones. IMPRESSION: 1. Right internal jugular catheter insertion without pneumothorax. 2. Cardiomegaly with mildly improved pulmonary edema. 3. Improving airspace opacities of the right mid and left lower lung zones, consistent with atelectas is versus pneumonia versus pulmonary edema. Reviewed, dictated and finalized at location A. CE BOOKING OFFICER IMPRESSION: 1. Right internal jugular catheter insertion without pneumothorax. 2. Cardiomegaly with mildly improved pulmonary edema. 3. Improving airspace opacities of the right mid and left lower lung zones, con sistent with atelectasis versus pneumonia versus pulmonary edema.
--- NOTE | ~2020-09-12 | XR_ITS ---
EXAMINATION: XR chest 1V portable DATE: 09/15/2020 02:26 INDICATION: Tachypnea. Increased work of breathing. Atrial fibrillation with rapid ventricular respon se. TECHNIQUE: frontal view of the chest was obtained. COMPARISON: Chest radiograph dated 09/12/2020 FINDINGS: Lung volumes remain small. Pulmonary vascular congestion. Increased opacities in the right mid and le ft lower lung zones. No pleural effusion or pneumothorax. Cardiomegaly. IMPRESSION: 1. Small lung volumes with increasing opacities in the right mid and left lower lung zones which coul d represent pulmonary edema and/or pneumonia. 2. Cardiomegaly with pulmonary vascular congestion. Reviewed, dictated and finalized at location A. ARIAL DIRECTOR IMPRESSION: 1. Small lung volumes with increasing opacities in the right mid and left lower lung zones which could represent pulmonary edema and/or pneumonia. 2. Cardiomegaly with pulmonary vascular congestion.
--- NOTE | ~2020-09-12 | CT_ITS ---
EXAMINATION: CT brain wo con INDICATION: Altered mental status COMPARISON: 08/29/2020 TECHNIQUE: Standard unenhanced head CT. The dose-length product (DLP) was 681.00 mGy-cm. The mA was a djusted according to patient size. Iterative reconstruction technique was employed. FINDINGS: There is no acute intraparenchymal hemorrhage. No evidence of mass lesion. No evidence of a cute infarction. There is mild periventricular and subcortical hypodensity probably related to small vessel ischemic disease. There is mild prominence of the sulci and ventricles related to cerebral atr ophy. Intracranial calcified cerebral atherosclerosis is noted. There are no extra-axial collections. There is no mass effect or midline shift. Changes in the globes are likely from ocular lens surgery. The visualized sinuses and mastoid air cells are well aerated. IMPRESSION: 1. No acute intracranial abnormality. 2. Age related findings. Reviewed, dictated and finalized at location A. DRAWING DIE MAKER
--- NOTE | ~2020-09-12 | US_ITS ---
EXAMINATION: US right upper quadrant DATE: 09/15/2020 16:56 INDICATION: Elevated liver function tests TECHNIQUE: Multiple grayscale and Doppler ultrasound images of the abdomen were obtained. COMPARISON: None available FINDINGS: Bowel gas obscures visualization of the pancreas. The visualized portions of the pancreas a re unremarkable. The liver is normal with normal echogenicity and echotexture. No surface nodularity. Normal hepatopetal flow in the main portal vein. The gallbladder is normal with no abnormal wall thi ckening, pericholecystic fluid or stones. The normal common bile duct measures 6 mm. There was no son ographic Knowles sign. IMPRESSION: 1. Normal sonographic study of the gallbladder. Reviewed, dictated and finalized at location A. R DIGGER OPERATOR
--- NOTE | ~2020-09-12 | XR_ITS ---
EXAMINATION: XR chest 1V portable DATE: 09/17/2020 05:55 INDICATION: Pneumonia. TECHNIQUE: A single frontal view of the chest was obtained. COMPARISON: Chest single view 09/15/2020, CT abdomen and pelvis 08/07/2013 FINDINGS: The lung volumes are small. Again seen is mild relative elevation of right hemidiaphragm. T here are airspace opacities in the mid and lower lung zones. No pleural effusion or pneumothorax. The heart size is normal. A right internal jugular central venous catheter is seen with tip in the super ior vena cava. IMPRESSION: 1. Stable airspace opacities in the mid and lower lung zones, consistent with pneumonia. Reviewed, dictated and finalized at location A. LOAD DRIVER IMPRESSION: 1. Stable airspace opacities in the mid and lower lung zones, consistent with p neumonia.
[2020-09-12 21:09] VITALS: BP 111/77; PULSE 112; RESP 32; TEMP 36.9; O2SAT 99
[2020-09-12 21:14] VITALS: RESP 30
--- NOTE | 2020-09-12 21:20 | ECG_ITS ---
Measurements Intervals [place] Rate: 113 P: 57 TX: 173 QRS: -59 QRSD: 120 T: 73 QT: 357 QTc: 490 Interpretive Statements SINUS TACHYCARDIA LEFT AXIS DEVIATION LEFT BUNDLE BRANCH BLOCK ANTEROSEPTAL INFARCT OR DUE TO LBBB ABNORMAL ECG Electronically Signed On 09-13-2020 7:12:14 DIRECTOR RADIATION ONCOLOGY by Dom Murphy D.O.
[2020-09-12] MEDS: SODIUM CHLORIDE 0.9% IV 1,000 ML 999 ML IV CONT (21:33)
[2020-09-12 21:38] LABS: Alveolar/Arterial O2 Gradient 44.8 mmHg; Base Excess ABG -2.2 mEq/l (+/-2.0); Carboxyhemoglobin 0.6 % THb (0-2.0); Fractional Inspired Oxygen 21 %; HCO3 ABG 21.7 mEq/l (22.0-26.0); Methemoglobin ABG 0.3 %THb (0-1.5); Oxygen Content ABG 13.4 %vol (16.0-22.0); Oxygen Saturation ABG 93.1 % (95.0-100.0); Oxyhemoglobin 90.6 % THb (90.0-100.0); PCO2 ABG 34.1 mmHg (35.0-45.0); PO2 ABG 64.1 mmHg (80.0-100.0); PO2 FiO2 Ratio Arterial Blood 3.05 %; Reduced Hemoglobin 8.5 %THb (0-5.0); Total Hemoglobin 10.5 g/dL (12.0-18.0); pH ABG 7.422 (7.350-7.450)
[2020-09-12 21:39] LABS: Device ROOM AIR; Modified Allen's Test Pass; Site Drawn RIGHT RADIAL
--- NOTE | 2020-09-12 21:44 | ED.AMS ---
HPI - Altered Mental Status General Chief Complaint: Altered Mental Status Stated Complaint: ams-rapid breathing Time Seen by Provider: 09/12/20 21:17 Source: EMS Mode of arrival: EMS Limitations: altered mental status History of Present Illness HPI narrative: This patient is a 75 year old male who presents for a retirement for evaluation of altered mental status. EMS states retirement staff told them that patient normally will respond to his name but tonight he did not. They reports the retirement did not know much about the patient. Patient was found to have an oxgyen saturation in the low 80s so he was placed on 6 l NC. They report patient has been in and out the hospital. They also state patient had a low grade fever on their arrival. Related Data Home Medications Medication Instructions Recorded Confirmed atorvastatin 40 mg PO DAILY 08/12/20 09/13/20 metoprolol succinate 25 mg PO DAILY 08/12/20 09/13/20 primidone 500 mg PO QID 08/12/20 09/13/20 ropinirole 4 mg PO HS 08/12/20 09/13/20 Allergies Allergy/AdvReac Type Severity Reaction Status Date / Time No Known Allergies Allergy Unknown Verified 09/02/20 11:01 Review of Systems Review of Systems: ROS unobtainable: Yes unobtainable due to mental status PMFSH Past Medical History Medical History Anxiety Anxiety and depression Depression Diverticulitis DVT (deep venous thrombosis) GI bleed Heart attack History of myocardial infarction History of poliomyelitis Hyperlipidemia Hypernatremia Hypertension Macrocytic anemia Macular degeneration disease Malignant melanoma Parkinsons Surgical History Surgical History H/O cardiac catheterization H/O heart artery stent x2 History of colonoscopy History of tonsillectomy Family History Family History Mother CHF (congestive heart failure) Father Malignant neoplasm of prostate Leukemia Social History Social History Social History: the patient used to smoke until he met his and then he quit. He used to smoke anywhere from a pack to half a pack a day but quit approximately 14 years ago. He rarely drinks. He quit drinking about the same did quit smoking. 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 He had 1 biological child a son who was murdered at the age of 21 related to drug activity. 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 He desires to be a full code. His is the durable power prototype fabricator Smoking status: Former smoker Tobacco type: cigarettes Second hand tobacco smoke exposure: No Alcohol intake: former Substance use: never Substance use type: former substance user and marijuana Other substance usage details: no drinking or smoking in 14 yrs Gender identity (if verbalized by the patient): Male Spiritual care concerns: No Exam Const: General: ill appearing Limitations: altered mental status Other: eyes open HENMT: Head: normocephalic and atraumatic Face and sinus: face symmetric Mouth: Yes moist mucous membranes abnormal (yellow exudate in oral mucosa) Eyes: Pupils: Equal, round and reactive pupils present Resp: Effort & Inspection: no retractions, tachypneic and no use of accessory muscles Auscultation: clear to auscultation bilaterally and no wheezes Cardio: Rate: tachycardic Rhythm: regular rhythm Heart sounds: no murmurs GI: GI Palp: Yes Soft to palpation, No Tenderness to palpation present (GI) and No Guarding due to palpation present (GI) Auscultation: normal bowel sounds Extrem: Other: left knee with soft swelling, with old bruising, no erythema, no increased warmth, Course Reevaluation(s) Reevaluation #1: Patient will now open his eyes and answer some questions. Date: 09/13
[2020-09-12 22:13] LABS: Basophils Absolute Auto 0.1 K/mm3 (0.0-0.1); Basophils Percent Auto 0.6 % (0.2-1.2); Eosinophils Absolute Auto 0.1 K/mm3 (0-0.3); Eosinophils Percent Auto 0.3 % (0-4.4); Hematocrit 30.2 % (42.0-52.0); Hemoglobin 9.4 g/dL (14.0-18.0); Immature Granulocyte Absolute 0.11 K/mm3 (0.00-0.031); Immature Granulocyte Percent A 0.7 % (0-0.5); Lymphocytes Absolute Auto 1.75 K/mm3 (0.9-3.2); Lymphocytes Percent Auto 10.9 % (18.3-44.2); Mean Corpuscular HGB Conc 31.1 g/dl (32-36); Mean Corpuscular Hemoglobin 30.3 pg (26-34); Mean Corpuscular Volume 97.4 fl (80-100); Mean Platelet Volume 10.1 fl (7.4-10.4); Monocytes Absolute Auto 1.5 K/mm3 (0.1-0.6); Monocytes Percent Auto 9.5 % (2.6-8.5); Neutrophils Absolute Auto 12.5 K/mm3 (1.3-6.7); Nucleated Red Blood Cells Perc 0.1 % (0.0-0.2); Platelet Count Result 282 k/mm3 (150-375); Red Cell Distribution Width 14.6 % (11.5-14.5)
[2020-09-12 22:23] LABS: Ammonia 16 umol/L (9-30); INR 2.3; Prothrombin Time 26.2 Seconds (11.1-14.7)
[2020-09-12 22:24] LABS: Lactic Acid Reflex 1.1 mmol/L (0.7-2.1); Partial Thromboplastin Time 51.9 SECONDS (22.3-36.8)
[2020-09-12 22:37] VITALS: BP 117/74; PULSE 111; RESP 28; O2SAT 96
[2020-09-12 22:37] LABS: Alanine Aminotransferase 412 U/L (4-50); Albumin Level 3.5 g/dL (3.5-5.1); Alkaline Phosphatase 152 U/L (38-126); Anion Gap 11 mmol/L (8-16); Aspartate Amino Transferase 517 U/L (17-59); Bilirubin,Total 0.6 mg/dL (0.2-1.3); Blood Urea Nitrogen 78 mg/dL (9-20); Carbon Dioxide 27 mmol/L (22-30); Chloride 113 mmol/L (98-107); Estimated CRCL calculation 11 ml/min; Estimated Glomerular Filt Rate 11; Glucose 124 mg/dL (75-110); Lipase 414 U/L (23-300); Magnesium 2.8 mg/dL (1.6-2.3); NT Pro B Type Natriuretic Pept 9810 PG/ML (5-100); Sodium 151 mmol/L (137-145)
[2020-09-12 22:41] LABS: Add Urine Microscopic? YES; Appearance Urine Cloudy (Clear); Bacteria Urine Trace /hpf; Bilirubin Urine Negative (Negative); Blood Urine Negative (Negative); Color Urine Yellow (Yellow); Glucose Urine UA Negative (Negative); Ketones Urine Negative (Negative); Leukocyte Esterase Ur Negative LEU/UL (Negative); Nitrate Urine Negative (Negative); Protein Urine 2+ mg/dL (Negative); RBC Urine 0-2 /hpf (0-2); Specific Grav Ur 1.017 (1.001-1.035); Urobilinogen Urine Negative mg/dL (<2.0); WBC Urine 0-3 /hpf
[2020-09-12 23:07] LABS: CRP 36.3 mg/dL (<1.0)
[2020-09-12] MEDS: SODIUM CHLORIDE 0.9% IV 1,000 ML 150 ML IV CONT (23:21)
[2020-09-13] VITALS (16 sets, daily range): BP systolic 97–128; BP diastolic 47–79; PULSE 94–109; RESP 12–30; TEMP 36.6–37.6; O2SAT 92–100; BMI 28.6; BMI 28.0
--- NOTE | 2020-09-13 00:22 | PM.IMHP ---
H&P: HPI History of Present Illness Date/Time: 09/13/20 00:22 Chief complaint: NSTEMI, acute renal failure, Narrative: This is a 75 year old male with Parkinson's disease and history of frequent falls known to our Hospitalist service from multiple previous admissions who was just discharged five days ago from our hospitalist service after he was treated for encephalopathy, COVID pneumonia, respiratory failure, and left knee effusion. Tonight the patient was sent back to the hospital from the residential secondary to altered mental status. The patient was found to have a low oxygen saturation and was placed on supplemental oxygen. It was reported that he isn't eating or drinking at the residential. Tonight in the ER the patient is not answering any questions and is nonresponsive. He does grimace to pain. CT brain was obtained which was negative for any acute pathology. No other history is obtainable secondary to the patient's encephalopathy. Review of Systems Review of Systems: ROS unobtainable: Yes unobtainable due to mental status PMFSH Past Medical History Medical History Anxiety Anxiety and depression Depression Diverticulitis DVT (deep venous thrombosis) GI bleed Heart attack History of myocardial infarction History of poliomyelitis Hyperlipidemia Hypernatremia Hypertension Macrocytic anemia Macular degeneration disease Malignant melanoma Parkinsons Surgical History Surgical History H/O cardiac catheterization H/O heart artery stent Stents in the proximal circ and OM2 in 2010 History of colonoscopy History of tonsillectomy Family History Family History Mother CHF (congestive heart failure) Father Malignant neoplasm of prostate Leukemia Social History Social History Social History: the patient used to smoke until he met his and then he quit. He used to smoke anywhere from a pack to half a pack a day but quit approximately 14 years ago. He rarely drinks. He quit drinking about the same did quit smoking. He is and his is a durable power collections attorney for healthcare. He had 1 biological child a son who was murdered at the age of 21 related to drug activity. 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 He desires to be a full code. His is the durable power collections attorney Smoking status: Former smoker Tobacco type: cigarettes Second hand tobacco smoke exposure: No Alcohol intake: former Substance use: never Substance use type: former substance user and marijuana Other substance usage details: no drinking or smoking in 14 yrs Gender identity (if verbalized by the patient): Male Spiritual care concerns: No Meds Home Medications and Allergies Home Medications Medication Instructions Recorded Confirmed Type atorvastatin 40 mg PO DAILY 08/12/20 09/13/20 History metoprolol succinate 25 mg PO DAILY 08/12/20 09/13/20 History primidone 500 mg PO QID 08/12/20 09/13/20 History ropinirole 4 mg PO HS 08/12/20 09/13/20 History Eliquis 5 mg PO BID #74 tablet 08/14/20 09/13/20 Rx acetaminophen [Mapap 650 mg PO Q4H PRN #30 tablet 09/08/20 09/13/20 Rx (acetaminophen)] Allergies Allergy/AdvReac Type Severity Reaction Status Date / Time No Known Allergies Allergy Unknown Verified 09/02/20 11:01 Vital Signs Vital Signs - 24 hr 09/12/20 21:09 09/12/20 21:14 09/12/20 22:37 Temperature 36.9 C Pulse Rate 112 H 111 H Respiratory Rate 32 H 30 H 28 H Blood Pressure 111/77 117/74 Pulse Oximetry 99 96 Exam Const: General: ill appearing acutely and patient obtunded Nutritional Appearance: well nourished Orientation/consciousness: patient obtunded HENMT: Head: normal to inspection General nose exam: Normal external nose present F
[2020-09-13] MEDS: ASPIRIN 300 MG SUPPOSITORY RECTAL ×2 (00:52→13:18)
[2020-09-13] MEDS: DEXTROSE 5% 1,000 ML 1,000 ML 120 ML IV CONT ×2 (01:21→15:51)
--- NOTE | 2020-09-13 02:13 | ADMGEN ---
This patient, Saad Yarbrough, was admitted to IMU Room 213-01 AT 0213. Patient/family oriented to hospital policies and general routines including ID bracelet, bed and alarms, visiting hours, pain management, procedures, bathroom and other care routines, personal items, smoking policy, room service/diet, and visiting hours. Information on how to activate the Rapid Response Team has been discussed. Patient/Family are encouraged to report perceived risks to care and to ask questions if they do not understand what they are told or what they should do.
[2020-09-13 05:43] LABS: Basophils Absolute Auto 0.1 K/mm3 (0.0-0.1); Basophils Percent Auto 0.5 % (0.2-1.2); Eosinophils Absolute Auto 0.2 K/mm3 (0-0.3); Hematocrit 30.2 % (42.0-52.0); Hemoglobin 9.2 g/dL (14.0-18.0); Immature Granulocyte Absolute 0.12 K/mm3 (0.00-0.031); Immature Granulocyte Percent A 0.7 % (0-0.5); Lymphocytes Absolute Auto 1.81 K/mm3 (0.9-3.2); Mean Corpuscular HGB Conc 30.5 g/dl (32-36); Mean Corpuscular Hemoglobin 30.3 pg (26-34); Mean Corpuscular Volume 99.3 fl (80-100); Mean Platelet Volume 10.9 fl (7.4-10.4); Monocytes Absolute Auto 1.6 K/mm3 (0.1-0.6); Monocytes Percent Auto 9.5 % (2.6-8.5); Neutrophils Absolute Auto 12.7 K/mm3 (1.3-6.7); Neutrophils Percent Auto 77.3 % (45.5-73.1); Nucleated Red Blood Cells Perc 0.1 % (0.0-0.2); Platelet Count Result 262 k/mm3 (150-375); Red Blood Count 3.04 M/mm3 (4.6-6.20); Red Cell Distribution Width 14.6 % (11.5-14.5); White Blood Count 16.4 K/mm3 (4.5-10.0)
[2020-09-13 05:50] LABS: Alanine Aminotransferase 331 U/L (4-50); Albumin Level 3.3 g/dL (3.5-5.1); Alkaline Phosphatase 131 U/L (38-126); Anion Gap 11 mmol/L (8-16); Aspartate Amino Transferase 423 U/L (17-59); Bilirubin,Total 0.6 mg/dL (0.2-1.3); Blood Urea Nitrogen 89 mg/dL (9-20); Calcium 8.5 mg/dL (8.4-10.2); Carbon Dioxide 27 mmol/L (22-30); Chloride 111 mmol/L (98-107); Estimated CRCL calculation 11 ml/min; Estimated Glomerular Filt Rate 10; Glucose 133 mg/dL (75-110); Potassium 5.2 mmol/L (3.4-5.0); Sodium 149 mmol/L (137-145)
--- NOTE | 2020-09-13 08:47 | PM.CNCAR ---
Assessment and Plan Assessment and plan (1) Elevated troponin: Code(s): R77.8 - Other specified abnormalities of plasma proteins Status: Acute Assessment and Plan: Elevated troponins though flat, probably not related to an acute coronary event since there was no chest pain or EKG changes. May have (COVID?) myocarditis, or poor clearing of troponins because of chronic CAD and acute renal failure. Will treat conservatively. Continue aspirin. No statin at this time because of elevated liver enzymes. Check an echo. (2) CAD (coronary artery disease): Code(s): I25.10 - Atherosclerotic heart disease of [place] coronary artery without angina pectoris Status: Acute Assessment and Plan: History of CAD and stents in 2010, normal LV function in the past (3) Acute renal failure (ARF): Code(s): N17.9 - Acute kidney failure, unspecified Status: Acute Assessment and Plan: Acute renal failure probably related to dehydration and sepsis (4) Sepsis: Qualifiers: Sepsis type: sepsis due to unspecified organism Sepsis acute organ dysfunction status: with acute organ dysfunction Severe sepsis acute organ dysfunction type: encephalopathy Severe sepsis shock status: without septic shock Qualified Code(s): A41.9 - Sepsis, unspecified organism; R65.20 - Severe sepsis without septic shock; G93.40 - Encephalopathy, unspecified Code(s): A41.9 - Sepsis, unspecified organism Status: Acute Assessment and Plan: Admitted with altered mental status, low blood pressure, low-grade fever, probably improved a bit overnight with IV fluids and antibiotics. But oxygenation is better today. Recent COVID associated pneumonia. (5) Right leg DVT: Qualifiers: Affected thrombotic vein of extremity: unspecified vein of extremity Chronicity: acute Qualified Code(s): I82.401 - Acute embolism and thrombosis of unspecified deep veins of right lower extremity Code(s): I82.401 - Acute embolism and thrombosis of unspecified deep veins of right lower extremity Status: Acute Assessment and Plan: DVT noted last admission, on Eliquis. History of Present Illness History of Present Illness Consult date/time: 09/13/20 08:47 Requesting physician: Saad Cochran MD Consult reason: Other Reason For Visit: NSTEMI, acute renal failure, Narrative: Date of service: 09/13/2020 Mr. Saad Yarbrough is a 75-year-old male whom we were asked to see at the request of Dr. Lei for his elevated troponins and non-STEMI in consultation. He is followed by Dr. Samano in our office for his history of CAD. He also has a history of HTN, hyperlipidemia, obesity, tremor, GI bleed, and Parkinson's disease. He resides in a [facility]. The patient was hospitalized twice in August, the 1st time for any hematoma after a fall to have a DVT, started on Eliquis and discharged on August 14. The 2nd time was for respiratory failure with hypoxia secondary to pneumonia and COVID, encephalopathy, and acute renal failure. Discharged on September 08. The patient was readmitted the [facility] when he was found with altered mental status, basically unconscious and with low O2 sats. Low-grade temperature of a 100?. He has been diagnosed with sepsis, non-STEMI with troponins of 5.9, 5.3 and 4.7, acute renal failure with a creatinine of 5.6, and transaminitis. He is getting IV fluids and aspirin has been started on vancomycin. There is no history of any chest pain. He has a history of non STEMI status post MASON to the proximal RCA and OM 2 branch in April 2011. Echo in 2012 showed EF of 53% and a stress test in 2013 was negative for ischemia. When he was last seen by Dr. wetzel he was doing well and stable, January 2019. The patient is unable to provide much h
--- NOTE | 2020-09-13 13:08 | PM.IMPN ---
Progress Note: A&P Assessment and Plan (1) Acute encephalopathy: Code(s): G93.40 - Encephalopathy, unspecified Status: Acute Assessment and Plan: Patient with acute encephalopathy related to the RENETTA and uremia. Monica is confused at baseline. he had a CT brain on admisison showing no acute findings. He had a recent MRI brain last admission also showing no acute findings. Follow closely as his other medical issues improve. (2) NSTEMI (non-ST elevated myocardial infarction): Code(s): I21.4 - Non-ST elevation (NSTEMI) myocardial infarction Status: Acute Assessment and Plan: Troponin 5.9 on admission and have been trending down. EKG showing no acute findings. Contineu ASA. Echo ordered. Cardiology following and appreciate their input. (3) Sepsis: Qualifiers: Sepsis acute organ dysfunction status: with acute organ dysfunction Sepsis type: sepsis due to unspecified organism Severe sepsis acute organ dysfunction type: encephalopathy Severe sepsis shock status: without septic shock Qualified Code(s): A41.9 - Sepsis, unspecified organism; R65.20 - Severe sepsis without septic shock; G93.40 - Encephalopathy, unspecified Code(s): A41.9 - Sepsis, unspecified organism Status: Acute Assessment and Plan: [place] on admission with leukocytosis, tachycardia, tachypnea and RENETTA. BCx collected. UA not consistent with UTI. CXR showing improvement. Consider MRSA PNA given that he was treated with Cefepime for 7 days prior to last discharge. Consider findings related to severe dehydration. Vanco started. Follow up on BCx results (4) Acute respiratory failure with hypoxia: Code(s): J96.01 - Acute respiratory failure with hypoxia Status: Acute Assessment and Plan: Monica was on room air at last discharge on 09/08/20. ABG here showing 7.42/34/64 on RA. Stable on 4L. CXR showing improving bilateral airspace disease. Vancomycin started for possible PNA. Wean o2 as tolerated (5) RENETTA (acute kidney injury): Code(s): N17.9 - Acute kidney failure, unspecified Status: Acute Assessment and Plan: BUN 78 and Cr 5.2 on admission. [place] related to dehydration. IV fluids started and levels have worsened to 89 and 5.6 respectfully. Bicarb normal but potassium slightly elevated 5.2. UOP poor. Will repeat later today and treat if climbing. Check renal US. Nephrology consult (6) Leukocytosis: Qualifiers: Leukocytosis type: unspecified Qualified Code(s): D72.829 - Elevated white blood cell count, unspecified Code(s): D72.829 - Elevated white blood cell count, unspecified Status: Acute Assessment and Plan: WBC elevated related to above. UA not consistent with UTI. CXR showing improvement from prior findings. Suspect elevated WBC is from a stress response. Follow (7) Chronic anemia: Code(s): D64.9 - Anemia, unspecified Status: Chronic Assessment and Plan: Hgb last admission was in the 7-8 range mostly some of which related to the large left LE hematoma. Hgb better now in the 9 range. Will follow. (8) Hypernatremia: Code(s): E87.0 - Hyperosmolality and hypernatremia Status: Acute Assessment and Plan: Na 151 on admission related to severe dehydration. Patient currently on D5W and Na trending down this morning. Follow closely (9) Transaminitis: Code(s): R74.01 - Elevation of levels of liver transaminase levels Status: Acute Assessment and Plan: AST 517 and ALT 412 on admission. AST better at 423 and ALT down to 331. Possibly shock liver. Will follow for now. Check RUQ US. (10) Right leg DVT: Qualifiers: Affected thrombotic vein of extremity: unspecified vein of extremity Chronicity: acute Qualified Code(s): I82.401 - Acute embolism and thrombosis of unspecified deep veins of right lower extremity
--- NOTE | 2020-09-13 16:25 | P.CONNP_ITS ---
Assessment and Plan Assessment and plan (1) RENETTA (acute kidney injury): Code(s): N17.9 - Acute kidney failure, unspecified Status: Acute Assessment and Plan: * felt to be due to volume depletion/dehydration * however, given concerns of sepsis with presentation, ATN is a possible as well * creatinine has failed to improve with IVF resuscitation * no critical electrolytes but I worry that his mentation may be secondary to uremia * renal ultrasound ~ 2 weeks ago noted -- may need to repeat to ensure no significant change * repeat urine electrolytes ordered * follow trend of repeat labs and urine output (2) Acute encephalopathy: Code(s): G93.40 - Encephalopathy, unspecified Status: Acute Assessment and Plan: * secondary to renal failure/uremia versus infection versus both or something else? * Head CT noted * follow mentation * if felt due to uremia, may need to consider dialytic support (3) Hypernatremia: Code(s): E87.0 - Hyperosmolality and hypernatremia Status: Acute Assessment and Plan: * slow improvement noted * likely due to free water deficit from poor oral intake * follow trend of sodiums (4) Sepsis: Qualifiers: Sepsis acute organ dysfunction status: with acute organ dysfunction Se psis type: sepsis due to unspecified organism Severe sepsis acute organ dy sfunction type: encephalopathy Severe sepsis shock status: without septic shock Qualified Code(s): A41.9 - Sepsis, unspecified organism; R65.20 - Severe sepsis without septic shock; G93.40 - Encephalopathy, unspecified Code(s): A41.9 - Sepsis, unspecified organism Status: Acute Assessment and Plan: * as evidence by elevated WBC, tachycarida, tachypnea and RENETTA on admission * source not clear but pneumonia a concern * MRSA pneumnonia(?) - on IV vancomycin (5) Transaminitis: Code(s): R74.01 - Elevation of levels of liver transaminase levels Status: Acute Assessment and Plan: * suggest shock liver * if hemodynamics altered to cause this, then no surprising kidney function had deteriorated as well * follow trend Will continue to follow. History of Present Illness Reason for Consult Consult date: 09/13/20 Reason for consult: acute renal failure Chief Complaint Chief complaint: NSTEMI, acute renal failure, History of Present Illness Narrative: Most of the information I have is from review of the electronic medical record and my personal experience taking care of the patient on his last hospitalization as he is unable to provide me with any meaningful history due to his confusion. The patient is a 75 year old male with a past medical history as outlined below who presented to [facility] Emergency room from his nursing facility due to altered mental status. The patient was just discharged approximately 6 days ago after being treated for a combination of respiratory failure, COVID-19 pneumonia, acute renal failure, and encephalopathy. He clinically improved during that hospital stay and was discharged back to his facility when these medical issues had resolved if not improved. He was sent back to the emergency room due to the aforementioned altered mental status. Apparently, he was found to have low oxygen saturations associated with poor nutritional intake and not being as communicative/verbal as he normally is at baseline. Workup and evaluation emergency room demonstrated the patient to be hemodynami dickson stable but routine blood test demonstrated a marked decline in his kidney function in comparis
--- NOTE | 2020-09-13 16:25 | PM.CNNEP ---
Assessment and Plan Assessment and plan (1) RENETTA (acute kidney injury): Code(s): N17.9 - Acute kidney failure, unspecified Status: Acute Assessment and Plan: felt to be due to volume depletion/dehydration however, given concerns of sepsis with presentation, ATN is a possible as well creatinine has failed to improve with IVF resuscitation no critical electrolytes but I worry that his mentation may be secondary to uremia renal ultrasound ~ 2 weeks ago noted -- may need to repeat to ensure no significant change repeat urine electrolytes ordered follow trend of repeat labs and urine output (2) Acute encephalopathy: Code(s): G93.40 - Encephalopathy, unspecified Status: Acute Assessment and Plan: secondary to renal failure/uremia versus infection versus both or something else? Head CT noted follow mentation if felt due to uremia, may need to consider dialytic support (3) Hypernatremia: Code(s): E87.0 - Hyperosmolality and hypernatremia Status: Acute Assessment and Plan: slow improvement noted likely due to free water deficit from poor oral intake follow trend of sodiums (4) Sepsis: Qualifiers: Sepsis acute organ dysfunction status: with acute organ dysfunction Sepsis type: sepsis due to unspecified organism Severe sepsis acute organ dysfunction type: encephalopathy Severe sepsis shock status: without septic shock Qualified Code(s): A41.9 - Sepsis, unspecified organism; R65.20 - Severe sepsis without septic shock; G93.40 - Encephalopathy, unspecified Code(s): A41.9 - Sepsis, unspecified organism Status: Acute Assessment and Plan: as evidence by elevated WBC, tachycarida, tachypnea and RENETTA on admission source not clear but pneumonia a concern MRSA pneumnonia(?) - on IV vancomycin (5) Transaminitis: Code(s): R74.01 - Elevation of levels of liver transaminase levels Status: Acute Assessment and Plan: suggest shock liver if hemodynamics altered to cause this, then no surprising kidney function had deteriorated as well follow trend Will continue to follow. History of Present Illness Reason for Consult Consult date: 09/13/20 Reason for consult: acute renal failure Chief Complaint Chief complaint: NSTEMI, acute renal failure, History of Present Illness Narrative: Most of the information I have is from review of the electronic medical record and my personal experience taking care of the patient on his last hospitalization as he is unable to provide me with any meaningful history due to his confusion. The patient is a 75 year old male with a past medical history as outlined below who presented to [facility] Emergency room from his nursing facility due to altered mental status. The patient was just discharged approximately 6 days ago after being treated for a combination of respiratory failure, COVID-19 pneumonia, acute renal failure, and encephalopathy. He clinically improved during that hospital stay and was discharged back to his facility when these medical issues had resolved if not improved. He was sent back to the emergency room due to the aforementioned altered mental status. Apparently, he was found to have low oxygen saturations associated with poor nutritional intake and not being as communicative/verbal as he normally is at baseline. Workup and evaluation emergency room demonstrated the patient to be hemodynamically stable but routine blood test demonstrated a marked decline in his kidney function in comparison to what it was on discharge from [facility] associated with hypernatremia, mild hyperkalemia, and an elevated white blood cell count. CT scan of the brain did not show any acute intracranial pathology and his chest x-ray demonstrated resolving pneumonia which she had had on his previous hospitalization. It was also noted that his troponins were elevated concerning for th
[2020-09-13] MEDS: SOD HYPOCHLORITE 1/4 STRENGTH 473 ML 1 APPLIC TOPICAL (20:32)
[2020-09-13 22:22] LABS: Creatinine Urine 86.4 mg/dL; Total Protein Urine Random 88 mg/dL; Ur Ttl Prot Creatinine Ratio 1.02 mg/mg (0-0.20)
[2020-09-13 22:24] LABS: Sodium Urine Random 48 meq/L
[2020-09-13 22:46] LABS: Anion Gap 12 mmol/L (8-16); Blood Urea Nitrogen 99 mg/dL (9-20); Calcium 8.4 mg/dL (8.4-10.2); Carbon Dioxide 26 mmol/L (22-30); Chloride 108 mmol/L (98-107); Estimated CRCL calculation 9 ml/min; Estimated Glomerular Filt Rate 8; Glucose 170 mg/dL (75-110); Potassium 5.1 mmol/L (3.4-5.0); Sodium 146 mmol/L (137-145)
[2020-09-14] VITALS (16 sets, daily range): BP systolic 115–131; BP diastolic 52–94; PULSE 90–169; RESP 20–26; TEMP 36.7–37.8; O2SAT 92–100
--- NOTE | 2020-09-14 | ECHO_ITS ---
Patient Info Name: Saad Yarbrough Age: 75 years : 1945 Gender: Male Ht: 70 in Wt: 195 lbs BSA: 2.11 m2 HR: 98 bpm BP: 121 / 63 mmHg Heart Rhythm: Sinus Rhythm Technical Quality: Fair Exam Date: 09/14/2020 1:43 PM Exam Location: [facility] Patient Status: Inpatient Admit Date: 09/13/2020 Staff Ordering Physician: Luciana Tatum MD Supervisor Word Processing: Clarisa Morrell RDCS Attending Provider: Suraj Rivas MD Referring Physician: Deepti RONQUILLO; Exam Type: CA echo dop color flow w con Study Info Indications - h/o cad - elevated trops Complete two-dimensional, color flow and Doppler transthoracic echocardiogram is performed with contrast to opacify the left ventricle and to improve the deliniation of the left ventricle endocardial borders. Contrast/Agitated Saline Contrast/Ag. Saline: Definity Amount: 2.00 ml Administered By: Marcos Orellana, TRAVIS IV Access Condition: patent with no signs of infiltration Summary 1. Left ventricular chamber dimension is moderately enlarged. 2. Left ventricular systolic function is severely reduced, estimated at 20-25%. 3. Definity contrast injected to improve visualization. 4. Left atrial chamber dimension is mildly enlarged. 5. Mildly sclerotic aortic root. 6. Trivial MR. Left Ventricle Left ventricular chamber dimension is moderately enlarged. Left ventricular systolic function is severely reduced, estimated at 20-25%. The left ventricular diastolic function is grade I diastolic dysfunction. Definity contrast injected to improve visualization. Right Ventricle Right ventricular chamber dimension is normal. Left Atria Left atrial chamber dimension is mildly enlarged. Right Atria Right atrial chamber dimension is normal. Aortic Valve The aortic valve is trileaflet. There is mild aortic valve sclerosis. Pulmonic Valve The pulmonic valve is not well visualized. Mitral Valve The mitral valve has normal leaflets. There is trace mitral valve regurgitation. Tricuspid Valve The tricuspid valve leaflets are normal. Pericardium/Pleural The pericardium appears normal. Aorta The aortic root size at the sinus of Valsalva is normal. Left Ventricular Outflow Tract Name Value Normal LVOT 2D LVOT Diameter 2.22 cm LVOT Doppler LVOT Peak Gradient 5 mmHg LVOT Mean Gradient 2 mmHg LVOT VTI 16.90 cm LVOT VTI/AV VTI Ratio 0.94 LVOT Stroke Volume 65.65 ml LVOT CO 5.98 l/min LVOT CI 2.84 L/min/m2 Pulmonic Valve Name Value Normal RVOT Doppler RVOT Peak Gradient 2 mmHg PV Doppler
[2020-09-14] MEDS: DEXTROSE 5% 1,000 ML 1,000 ML 120 ML IV CONT ×3 (01:52→16:50)
[2020-09-14 05:50] LABS: Basophils Absolute Auto 0.1 K/mm3 (0.0-0.1); Basophils Percent Auto 0.4 % (0.2-1.2); Eosinophils Absolute Auto 0.2 K/mm3 (0-0.3); Eosinophils Percent Auto 0.8 % (0-4.4); Hematocrit 26.3 % (42.0-52.0); Hemoglobin 8.2 g/dL (14.0-18.0); Immature Granulocyte Percent A 0.5 % (0-0.5); Lymphocytes Absolute Auto 1.05 K/mm3 (0.9-3.2); Lymphocytes Percent Auto 5.7 % (18.3-44.2); Mean Corpuscular HGB Conc 31.2 g/dl (32-36); Mean Corpuscular Hemoglobin 29.3 pg (26-34); Mean Corpuscular Volume 93.9 fl (80-100); Mean Platelet Volume 10.8 fl (7.4-10.4); Monocytes Absolute Auto 1.1 K/mm3 (0.1-0.6); Neutrophils Percent Auto 86.6 % (45.5-73.1); Nucleated Red Blood Cells Perc 0.1 % (0.0-0.2); Platelet Count Result 230 k/mm3 (150-375); Red Cell Distribution Width 14.1 % (11.5-14.5); White Blood Count 18.5 K/mm3 (4.5-10.0)
[2020-09-14 06:08] LABS: Alanine Aminotransferase 240 U/L (4-50); Albumin Level 3.2 g/dL (3.5-5.1); Alkaline Phosphatase 127 U/L (38-126); Anion Gap 13 mmol/L (8-16); Aspartate Amino Transferase 216 U/L (17-59); Bilirubin,Total 0.5 mg/dL (0.2-1.3); Blood Urea Nitrogen 96 mg/dL (9-20); Carbon Dioxide 23 mmol/L (22-30); Chloride 107 mmol/L (98-107); Estimated CRCL calculation 8 ml/min; Estimated Glomerular Filt Rate 8; Glucose 169 mg/dL (75-110); Magnesium 2.6 mg/dL (1.6-2.3); Phosphorus 8.2 mg/dL (2.5-4.5); Sodium 143 mmol/L (137-145)
[2020-09-14 06:38] LABS: Potassium 4.9 mmol/L (3.4-5.0)
[2020-09-14 06:58] LABS: CRP 37.1 mg/dL (<1.0)
[2020-09-14] MEDS: ASPIRIN 300 MG SUPPOSITORY RECTAL (10:00)
[2020-09-14] MEDS: SOD HYPOCHLORITE 1/4 STRENGTH 473 ML 1 APPLIC TOPICAL ×2 (10:00→20:53)
[2020-09-14 12:13] LABS: SARS-CoV-2 RNA PCR Negative
--- NOTE | 2020-09-14 13:01 | PM.IMPN ---
Progress Note: A&P Assessment and Plan (1) Acute encephalopathy: Code(s): G93.40 - Encephalopathy, unspecified Status: Acute Assessment and Plan: Patient with acute encephalopathy related to the RENETTA and uremia. Patient is confused at baseline. He had a CT brain on admission showing no acute findings. He had a recent MRI brain last admission also showing no acute findings. Follow closely as his other medical issues improve. (2) NSTEMI (non-ST elevated myocardial infarction): Code(s): I21.4 - Non-ST elevation (NSTEMI) myocardial infarction Status: Acute Assessment and Plan: Troponin 5.9 on admission and have been trending down. EKG showing no acute findings. Contineu ASA. Echo pending. Cardiology following and appreciate their input. (3) Sepsis: Qualifiers: Sepsis acute organ dysfunction status: with acute organ dysfunction Sepsis type: sepsis due to unspecified organism Severe sepsis acute organ dysfunction type: encephalopathy Severe sepsis shock status: without septic shock Qualified Code(s): A41.9 - Sepsis, unspecified organism; R65.20 - Severe sepsis without septic shock; G93.40 - Encephalopathy, unspecified Code(s): A41.9 - Sepsis, unspecified organism Status: Acute Assessment and Plan: Pt present on admission with leukocytosis, tachycardia, tachypnea and RENETTA. BCx NGTD. UA not consistent with UTI. CXR showing improvement. Consider MRSA PNA given that he was treated with Cefepime for 7 days prior to last discharge. Consider findings related to severe dehydration. Vanco started. (4) Acute respiratory failure with hypoxia: Code(s): J96.01 - Acute respiratory failure with hypoxia Status: Acute Assessment and Plan: Patient was on room air at last discharge on 09/08/20. ABG here showing 7.42/34/64 on RA. Stable on 2L. CXR 09/12 showing improving bilateral airspace disease. Vancomycin started for possible PNA. Wean O2 as tolerated. COVID negative. (5) RENETTA (acute kidney injury): Code(s): N17.9 - Acute kidney failure, unspecified Status: Acute Assessment and Plan: BUN 78 and Cr 5.2 on admission. [place] related to dehydration. IV fluids started and levels have worsened to 96 and 7.0 respectfully. Bicarb normal and potassium normal. UOP still poor. Nephrology following. Renal US ordered. (6) Leukocytosis: Qualifiers: Leukocytosis type: unspecified Qualified Code(s): D72.829 - Elevated white blood cell count, unspecified Code(s): D72.829 - Elevated white blood cell count, unspecified Status: Acute Assessment and Plan: WBC elevated related to above. UA not consistent with UTI. CXR showing improvement from prior findings. Suspect elevated WBC is from a stress response. Follow (7) Chronic anemia: Code(s): D64.9 - Anemia, unspecified Status: Chronic Assessment and Plan: Hgb last admission was in the 7-8 range mostly some of which related to the large left LE hematoma. Hgb better now in the 8-9 range. Will follow. (8) Hypernatremia: Code(s): E87.0 - Hyperosmolality and hypernatremia Status: Acute Assessment and Plan: Na 151 on admission related to severe dehydration. Patient currently on D5W and Na normal this morning. Follow closely (9) Transaminitis: Code(s): R74.01 - Elevation of levels of liver transaminase levels Status: Acute Assessment and Plan: AST 517 and ALT 412 on admission. AST better at 216 and ALT down to 240. Possibly shock liver. Hepatitis panel negative recently. Will follow for now. (10) Right leg DVT: Qualifiers: Affected thrombotic vein of extremity: unspecified vein of extremity Chronicity: acute Qualified Code(s): I82.401 - Acute embolism and thrombosis of unspecified deep veins of right lower extremity Code(s): I82.401 - Acute embolism and
--- NOTE | 2020-09-14 13:16 | PCDIET ---
Nutrition Follow-Up Complete: Nutrition Diagnosis: Inadequate oral intake related to diet order as evidenced by NPO status. Nutrition Goal: Patient to meet estimated nutritional needs. Goal not met. Patient remains NPO, but is reportedly more responsive today. Recommend speech therapy consult to determine whether oral diet should be advanced. If unable to safely advance diet and aggressive nutritional therapy is desired, recommend enteral nutrition. Will follow closely and provide recommendations, as needed. Last recorded weight is 91.7 kg which is increased from last review. +I/O. Bowel Motility: No documented BM as of yet. Labs Reviewed: Hgb (8.2), Hct (26.3), Glu (169), BUN (96), Cr (7.0), Alb (3.2), [place] Ca (8.64), PO4 (8.2), Mg (2.6) Meds Noted: D5/Water at 120mL/hr, Vancomycin Additional Notes: Pressure ulcers to coccyx and left heel. Will continue to monitor with same goal. Nutrition Monitoring and Evaluaton: Follow up every 3 days.
[2020-09-14] MEDS: PERFLUTREN LIPID MICROSPHERES 1.5 ML VIAL DILUTED TO 10 ML TOTAL VOLUME (14:16)
--- NOTE | 2020-09-14 15:56 | P.PNNP_ITS ---
Progress Note: A&P Assessment and Plan (1) RENETTA (acute kidney injury): Code(s): N17.9 - Acute kidney failure, unspecified Status: Acute Assessment and Plan: * felt to be due to volume depletion/dehydration * however, given concerns of sepsis with presentation, ATN is a possible as well * creatinine has failed to improve with IVF resuscitation * no critical electrolytes but I worry that his mentation may be secondary to uremia * renal ultrasound ~ 2 weeks ago noted -- will repeat * repeat urine electrolytes with an element of prerenal azotemia * follow trend of repeat labs and urine output (not making much urine) * may need to consider [employer]/dialysis - will attempt to discuss with family but I am unable to get ahold of his (2) Acute encephalopathy: Code(s): G93.40 - Encephalopathy, unspecified Status: Acute Assessment and Plan: * secondary to renal failure/uremia versus infection versus both or something else? * Head CT noted * follow mentation * if felt due to uremia, may need to consider dialytic support (3) Hypernatremia: Code(s): E87.0 - Hyperosmolality and hypernatremia Status: Acute Assessment and Plan: * slow improvement noted * likely due to free water deficit from poor oral intake * follow trend of sodiums (4) Sepsis: Qualifiers: Sepsis acute organ dysfunction status: with acute organ dysfunction Sepsis type: sepsis due to unspecified organism Severe sepsis acute organ dysfunction type: encephalopathy Severe sepsis shock status: without septic shock Qualified Code(s): A41.9 - Sepsis, unspecified organism; R65.20 - Severe sepsis without septic shock; G93.40 - Encephalopathy, unspecified Code(s): A41.9 - Sepsis, unspecified organism Status: Acute Assessment and Plan: * as evidence by elevated WBC, tachycarida, tachypnea and RENETTA on admission * source not clear but pneumonia a concern * MRSA pneumnonia(?) - on IV vancomycin (5) Transaminitis: Code(s): R74.01 - Elevation of levels of liver transaminase levels Status: Acute Assessment and Plan: * suggest shock liver * if hemodynamics altered to cause this, then no surprising kidney function had deteriorated as well * follow trend Will continue to follow. Subjective Date/time seen: 09/14/20 15:56 He seems a bit more responsive today in comparison to yesterday although quickly falls back asleep without stimulation; no events overnight or earlier this AM; no apparent distress...when he does speak, he says he feels okay. Exam Narrative: Exam Narrative: General: Elderly male laying in bed and in NAD Heart: normal S1 and S2; no rub Lungs: distant breath sounds Abdomen: soft, nontender, nondistended, positive bowel sounds Extremities: no cyanosis or clubbing; no edema Skin: warm and dry Objective Data Vital Signs Vital Signs: Vital Signs Temp Pulse Resp BP Pulse Ox 09/14/20 14:00 90 09/14/20 12:00 37.2 C 98 23 H 121/76 92 09/14/20 10:58 95 09/14/20 10:00 102 H 95 09/14/20 08:00 37.8 C H 100 23 H 123/78 92 09/14/20 06:00 108 H 09/14/20 04:45 37.1 C 107 H 20 117/52 L 95 09/14/20 04:00 107 H 100 09/14/20 02:00 107 H 09/14/20 00:00 37.2 C 106 H 20 115/94 H 100 09/13/20 23:15 37.2 C 109 H 20 115/74 100 09/13/20 22:00 106 H
--- NOTE | 2020-09-14 15:56 | PM.PNNEP ---
Progress Note: A&P Assessment and Plan (1) RENETTA (acute kidney injury): Code(s): N17.9 - Acute kidney failure, unspecified Status: Acute Assessment and Plan: felt to be due to volume depletion/dehydration however, given concerns of sepsis with presentation, ATN is a possible as well creatinine has failed to improve with IVF resuscitation no critical electrolytes but I worry that his mentation may be secondary to uremia renal ultrasound ~ 2 weeks ago noted -- will repeat repeat urine electrolytes with an element of prerenal azotemia follow trend of repeat labs and urine output (not making much urine) may need to consider [employer]/dialysis - will attempt to discuss with family but I am unable to get ahold of his (2) Acute encephalopathy: Code(s): G93.40 - Encephalopathy, unspecified Status: Acute Assessment and Plan: secondary to renal failure/uremia versus infection versus both or something else? Head CT noted follow mentation if felt due to uremia, may need to consider dialytic support (3) Hypernatremia: Code(s): E87.0 - Hyperosmolality and hypernatremia Status: Acute Assessment and Plan: slow improvement noted likely due to free water deficit from poor oral intake follow trend of sodiums (4) Sepsis: Qualifiers: Sepsis acute organ dysfunction status: with acute organ dysfunction Sepsis type: sepsis due to unspecified organism Severe sepsis acute organ dysfunction type: encephalopathy Severe sepsis shock status: without septic shock Qualified Code(s): A41.9 - Sepsis, unspecified organism; R65.20 - Severe sepsis without septic shock; G93.40 - Encephalopathy, unspecified Code(s): A41.9 - Sepsis, unspecified organism Status: Acute Assessment and Plan: as evidence by elevated WBC, tachycarida, tachypnea and RENETTA on admission source not clear but pneumonia a concern MRSA pneumnonia(?) - on IV vancomycin (5) Transaminitis: Code(s): R74.01 - Elevation of levels of liver transaminase levels Status: Acute Assessment and Plan: suggest shock liver if hemodynamics altered to cause this, then no surprising kidney function had deteriorated as well follow trend Will continue to follow. Subjective Date/time seen: 09/14/20 15:56 He seems a bit more responsive today in comparison to yesterday although quickly falls back asleep without stimulation; no events overnight or earlier this AM; no apparent distress...when he does speak, he says he feels okay. Exam Narrative: Exam Narrative: General: Elderly male laying in bed and in NAD Heart: normal S1 and S2; no rub Lungs: distant breath sounds Abdomen: soft, nontender, nondistended, positive bowel sounds Extremities: no cyanosis or clubbing; no edema Skin: warm and dry Objective Data Vital Signs Vital Signs: Vital Signs Temp Pulse Resp BP Pulse Ox 09/14/20 14:00 90 09/14/20 12:00 37.2 C 98 23 H 121/76 92 09/14/20 10:58 95 09/14/20 10:00 102 H 95 09/14/20 08:00 37.8 C H 100 23 H 123/78 92 09/14/20 06:00 108 H 09/14/20 04:45 37.1 C 107 H 20 117/52 L 95 09/14/20 04:00 107 H 100 09/14/20 02:00 107 H 09/14/20 00:00 37.2 C 106 H 20 115/94 H 100 09/13/20 23:15 37.2 C 109 H 20 115/74 100 09/13/20 22:00 106 H 09/13/20 20:00 36.6 C 98 18 128/74 100 09/13/20 18:00 99 09/13/20 16:00 36.9 C 101 H 20 118/71 100 Intake/Output Intake/Output: Intake & Output 09/11/20 09/12/20 09/13/20 09/14/20 23:59 23:59 23:59 23:59 Intake Total 1100 1250 2000 Output Total 150 285 200 Balance 787 179 1794 Meds/Results Medications: Active Medications Generic Name Dose Route Start Last Admin Trade Name Freq PRN Reason Stop Dose Admin Aspirin 300 mg 09/13/20 12:00 09/14/20 10:00 Aspirin 300 Mg Suppository RECTAL 300 mg DAILY ANABEL Administration Dextro
[2020-09-14 22:05] LABS: Vancomycin Trough 9.7 ug/mL (10.0-20.0)
[2020-09-15] VITALS (30 sets, daily range): BP systolic 97–146; BP diastolic 50–82; PULSE 61–152; RESP 18–28; TEMP 36.2–37; O2SAT 93–100
[2020-09-15] MEDS: DEXTROSE 5% 1,000 ML 1,000 ML 120 ML IV CONT (01:13)
--- NOTE | 2020-09-15 01:56 | ECG_ITS ---
Measurements Intervals [place] Rate: 135 P: OK: 0 QRS: -64 QRSD: 130 T: 88 QT: 345 QTc: 518 Interpretive Statements ATRIAL FIBRILLATION WITH RAPID VENTRICULAR RESPONSE LEFT BUNDLE BRANCH BLOCK CANNOT RULE OUT SEPTAL INFARCT, AGE INDETERMINATE BASELINE WANDER- V6 ABNORMAL ECG Electronically Signed On 09-15-2020 7:17:12 [employer] by Dom Murphy D.O.
[2020-09-15 02:27] LABS: Basophils Absolute Auto 0.1 K/mm3 (0.0-0.1); Basophils Percent Auto 0.4 % (0.2-1.2); Eosinophils Absolute Auto 0.8 K/mm3 (0-0.3); Eosinophils Percent Auto 5.6 % (0-4.4); Hematocrit 26.2 % (42.0-52.0); Hemoglobin 8.3 g/dL (14.0-18.0); Immature Granulocyte Absolute 0.12 K/mm3 (0.00-0.031); Immature Granulocyte Percent A 0.8 % (0-0.5); Lymphocytes Absolute Auto 1.66 K/mm3 (0.9-3.2); Lymphocytes Percent Auto 11.6 % (18.3-44.2); Mean Corpuscular HGB Conc 31.7 g/dl (32-36); Mean Corpuscular Hemoglobin 29.7 pg (26-34); Mean Corpuscular Volume 93.9 fl (80-100); Mean Platelet Volume 10.8 fl (7.4-10.4); Monocytes Absolute Auto 0.7 K/mm3 (0.1-0.6); Neutrophils Percent Auto 76.6 % (45.5-73.1); Platelet Count Result 209 k/mm3 (150-375); Red Blood Count 2.79 M/mm3 (4.6-6.20); Red Cell Distribution Width 14.2 % (11.5-14.5); White Blood Count 14.3 K/mm3 (4.5-10.0)
[2020-09-15 02:39] LABS: Lactic Acid Reflex 1.1 mmol/L (0.7-2.1)
[2020-09-15 02:40] LABS: Alanine Aminotransferase 197 U/L (4-50); Albumin Level 3.2 g/dL (3.5-5.1); Alkaline Phosphatase 127 U/L (38-126); Anion Gap 17 mmol/L (8-16); Aspartate Amino Transferase 191 U/L (17-59); Bilirubin,Total 0.4 mg/dL (0.2-1.3); Blood Urea Nitrogen 102 mg/dL (9-20); Carbon Dioxide 18 mmol/L (22-30); Chloride 104 mmol/L (98-107); Estimated CRCL calculation 8 ml/min; Estimated Glomerular Filt Rate 7; Glucose 133 mg/dL (75-110); Potassium 4.8 mmol/L (3.4-5.0); Sodium 139 mmol/L (137-145)
[2020-09-15 02:55] LABS: Magnesium 2.5 mg/dL (1.6-2.3); Phosphorus 8.6 mg/dL (2.5-4.5)
[2020-09-15] MEDS: METOPROLOL TARTRATE INJ 5 MG/5 ML VIAL IV PUSH (02:55)
--- NOTE | 2020-09-15 08:42 | P.PNNP_ITS ---
Progress Note: A&P Assessment and Plan (1) RENETTA (acute kidney injury): Code(s): N17.9 - Acute kidney failure, unspecified Status: Acute Assessment and Plan: * Acute kidney injury. * Renal ultrasound is ordered and pending. * Urine electrolytes are non pre renal. * Urinalysis is bland but does show 2+ protein. * Etiology may be due to dehydration or ATN. * He has not improved with IV fluids. * His BUN and creatinine are very high. His mental status is not normal. * I think he is going to need dialysis. * I called the . She is at her son's house. [phone]. I talked with and her son Evens. has dementia so we should call the son. We discussed that the patient is more confused and the BUN creatinine are rising. I think we ought to initiate dialysis. His confusion has been present off and on for the last few weeks. So I am not sure dialysis going to completely clear up all of the confusion but it least it would take the uremic component out of the picture. We discussed the risks benefits alternatives and process of dialysis and the son agrees to proceed. (2) Acute encephalopathy: Code(s): G93.40 - Encephalopathy, unspecified Status: Acute Assessment and Plan: * secondary to renal failure/uremia versus infection versus both or something else? * Head CT noted * follow mentation * Possibly dialysis will help this. But probably not completely. (3) Hypernatremia: Code(s): E87.0 - Hyperosmolality and hypernatremia Status: Acute Assessment and Plan: * Resolved (4) Sepsis: Qualifiers: Sepsis type: sepsis due to unspecified organism Sepsis acute organ dysfunction status: with acute organ dysfunction Severe sepsis acute organ dysfunction type: encephalopathy Severe sepsis shock status: without septic shock Qualified Code(s): A41.9 - Sepsis, unspecified organism; R65.20 - Severe sepsis without septic shock; G93.40 - Encephalopathy, unspecified Code(s): A41.9 - Sepsis, unspecified organism Status: Acute Assessment and Plan: * as evidence by elevated WBC, tachycarida, tachypnea and RENETTA on admission * source not clear but pneumonia a concern * Blood cultures negative. * On antibiotics. (5) Transaminitis: Code(s): R74.01 - Elevation of levels of liver transaminase levels Status: Acute Assessment and Plan: * suggest shock liver * if hemodynamics altered to cause this, then no surprising kidney function had deteriorated as well * follow trend Will continue to follow. Subjective Date/time seen: 09/15/20 08:42 Interval history: Patient is alert. He feels okay. No chest pain or shortness of breath. Review of Systems Cardiovascular: Cardiovascular: Reports no additional cardiovascular complaints Respiratory: Respiratory: Reports no additional respiratory complaints Gastrointestinal: Gastrointestinal: Reports no additional gastrointestinal complaints Genitourinary: Genitourinary: Reports no additional male genitourinary complaints Exam Narrative: Exam Narrative: General: Elderly male laying in bed and in NAD Heart: normal S1 and S2; no rub Lungs: Fairly clear. No rhonchi or wheezes. Abdomen: soft, nontender, nondistended, positive bowel sounds Extremities: no cyanosis or clubbing; no edema Skin: No rash Objective Data Vital Signs Vital Signs: Vital Signs - 24 hr 09/14/20 10:
--- NOTE | 2020-09-15 08:42 | PM.PNNEP ---
Progress Note: A&P Assessment and Plan (1) RENETTA (acute kidney injury): Code(s): N17.9 - Acute kidney failure, unspecified Status: Acute Assessment and Plan: Acute kidney injury. Renal ultrasound is ordered and pending. Urine electrolytes are non pre renal. Urinalysis is bland but does show 2+ protein. Etiology may be due to dehydration or ATN. He has not improved with IV fluids. His BUN and creatinine are very high. His mental status is not normal. I think he is going to need dialysis. I called the . She is at her son's house. [phone]. I talked with and her son Evens. has dementia so we should call the son. We discussed that the patient is more confused and the BUN creatinine are rising. I think we ought to initiate dialysis. His confusion has been present off and on for the last few weeks. So I am not sure dialysis going to completely clear up all of the confusion but it least it would take the uremic component out of the picture. We discussed the risks benefits alternatives and process of dialysis and the son agrees to proceed. (2) Acute encephalopathy: Code(s): G93.40 - Encephalopathy, unspecified Status: Acute Assessment and Plan: secondary to renal failure/uremia versus infection versus both or something else? Head CT noted follow mentation Possibly dialysis will help this. But probably not completely. (3) Hypernatremia: Code(s): E87.0 - Hyperosmolality and hypernatremia Status: Acute Assessment and Plan: Resolved (4) Sepsis: Qualifiers: Sepsis type: sepsis due to unspecified organism Sepsis acute organ dysfunction status: with acute organ dysfunction Severe sepsis acute organ dysfunction type: encephalopathy Severe sepsis shock status: without septic shock Qualified Code(s): A41.9 - Sepsis, unspecified organism; R65.20 - Severe sepsis without septic shock; G93.40 - Encephalopathy, unspecified Code(s): A41.9 - Sepsis, unspecified organism Status: Acute Assessment and Plan: as evidence by elevated WBC, tachycarida, tachypnea and RENETTA on admission source not clear but pneumonia a concern Blood cultures negative. On antibiotics. (5) Transaminitis: Code(s): R74.01 - Elevation of levels of liver transaminase levels Status: Acute Assessment and Plan: suggest shock liver if hemodynamics altered to cause this, then no surprising kidney function had deteriorated as well follow trend Will continue to follow. Subjective Date/time seen: 09/15/20 08:42 Interval history: Patient is alert. He feels okay. No chest pain or shortness of breath. Review of Systems Cardiovascular: Cardiovascular: Reports no additional cardiovascular complaints Respiratory: Respiratory: Reports no additional respiratory complaints Gastrointestinal: Gastrointestinal: Reports no additional gastrointestinal complaints Genitourinary: Genitourinary: Reports no additional male genitourinary complaints Exam Narrative: Exam Narrative: General: Elderly male laying in bed and in NAD Heart: normal S1 and S2; no rub Lungs: Fairly clear. No rhonchi or wheezes. Abdomen: soft, nontender, nondistended, positive bowel sounds Extremities: no cyanosis or clubbing; no edema Skin: No rash Objective Data Vital Signs Vital Signs: Vital Signs - 24 hr 09/14/20 10:00 09/14/20 10:58 09/14/20 12:00 Temperature 37.2 C Pulse Rate 102 H 98 Respiratory Rate 23 H Blood Pressure 121/76 Pulse Oximetry 95 95 92 09/14/20 14:00 09/14/20 16:00 09/14/20 18:00 Temperature 36.7 C Pulse Rate 90 96 92 Respiratory Rate 24 H Blood Pressure 124/71 Pulse Oximetry 96 09/14/20 19:24 09/14/20 20:00 09/14/20 22:00 Temperature 37.0 C Pulse Rate 97 97 91 Respiratory Rate 26 H 26 H Blood Pressure 131/76 Pulse Oximetry 96 96 09/14/20 23:29 09/15/20 00:00 09/15/20
[2020-09-15] MEDS: SOD HYPOCHLORITE 1/4 STRENGTH 473 ML 1 APPLIC TOPICAL ×2 (09:40→22:42)
[2020-09-15] MEDS: ASPIRIN 300 MG SUPPOSITORY RECTAL (09:40)
--- NOTE | 2020-09-15 12:01 | PM.PNCARD ---
Progress Note: A&P Time Spent With Patient Time: 75-year-old man with: Ischemic heart disease with previous percutaneous revascularization. Admitted with encephalopathy which probably is related to severe renal failure. Unfortunately echocardiogram today demonstrates left ventricular systolic function which was mildly depressed in the past is now severely depressed. Obviously he is not a candidate for invasive evaluation of this. Hemodynamically he probably is not a candidate for advancing heart failure medication. Given the echocardiographic findings carvedilol would be a better choice for his beta-alma. Nephrology notes today indicate anticipation of starting dialysis. The patient is incoherent not really aware of this but as stated above is encephalopathic. Ravi Smiley MD [facility] Subjective Date/time seen: Date of service: 09/15/20 12:01 Interval history: Follow-up visit in this 75-year-old patient with coronary artery disease admitted with mental status change appears to be significantly uremic as the likely etiology for this. Patient is responsive but only semi coherent at this time. Denies any specific complaints. Exam Const: General: comfortable and no acute distress Other: Lethargic 75-year-old man is arousable upon entering the room but only partially answers questions and largely incoherent HENMT: Mouth: Yes moist mucous membranes Eyes: Sclera: sclerae normal Pupils: Equal, round and reactive pupils present Neck: Neck: supple and no JVD Thyroid: thyroid normal Resp: Effort & Inspection: normal respiratory effort Auscultation: clear to auscultation bilaterally Cardio: Rate: regular rate Rhythm: regular rhythm GI: GI Palp: Yes Soft to palpation Auscultation: normal bowel sounds Skin: General skin exam: normal color Neuro: Cognition (Neuro): abnormal cognition Other: Encephalopathic as detailed above Extrem: General: normal to inspection Objective Data Vital Signs Vital Signs: Vital Signs - 24 hr 09/14/20 14:00 09/14/20 16:00 09/14/20 18:00 Temperature 36.7 C Pulse Rate 90 96 92 Respiratory Rate 24 H Blood Pressure 124/71 Pulse Oximetry 96 09/14/20 19:24 09/14/20 20:00 09/14/20 22:00 Temperature 37.0 C Pulse Rate 97 97 91 Respiratory Rate 26 H 26 H Blood Pressure 131/76 Pulse Oximetry 96 96 09/14/20 23:29 09/15/20 00:00 09/15/20 02:00 Temperature 37.0 C 36.7 C Pulse Rate 91 95 134 H Respiratory Rate 24 H 24 H 26 H Blood Pressure 122/74 116/82 Pulse Oximetry 97 97 93 09/15/20 02:55 09/15/20 03:38 09/15/20 04:00 Temperature 36.5 C Pulse Rate 152 H 119 H 120 H Respiratory Rate 26 H 26 H Blood Pressure 103/64 Pulse Oximetry 100 100 09/15/20 05:35 09/15/20 08:00 09/15/20 09:36 Temperature 36.2 C L Pulse Rate 95 92 90 Respiratory Rate 28 H Blood Pressure 104/54 L Pulse Oximetry 95 09/15/20 10:06 Temperature Pulse Rate 89 Respiratory Rate Blood Pressure Pulse Oximetry Intake/Output Intake/Output: Intake & Output 09/12/20 09/13/20 09/14/20 09/15/20 23:59 23:59 23:59 23:59 Intake Total 1100 1250 3000 1680 Output Total 150 285 325 100 Balance 566 975 0315 1580 Meds/Results Medications: Active Medications Generic Name Dose Route Start Last Admin Trade Name Freq PRN Reason Stop Dose Admin Aspirin 300 mg 09/13/20 12:00 09/15/20 09:40 Aspirin 300 Mg Suppository RECTAL 300 mg DAILY ANABEL Administration Vancomycin HCl 1,500 mg in 500 mls @ 333.333 mls/hr 09/14/20 07:25 Vancomycin 1,500 Mg/D5w 500 Ml IVPB PRN PRN PER LEVELS Acetaminophen 1,000 mg in 100 mls @ 400 mls/hr 09/15/20 07:58 09/15/20 09:30 Ofirmev 1,000 Mg Ivpb IVPB 09/16/20 07:59 Infused Q6H PRN Infusion Pain Rated 4-6 Albumin Human 50 mls @ 999 mls/hr 09/15/20 08:59 Albutein IVPB 09/16/20 09:00 Q10M PRN HYPOTENSION Ondansetron HCl 4 mg 09/12/20 23:49 Ondansetron Inj 4 Mg/2 Ml V
[2020-09-15 12:24] LABS: Hepatitis B Surface Antigen Negative (Negative)
[2020-09-15 12:43] LABS: Hepatitis B Surface Anti Res Negative; Hepatitis C Virus Antibody Negative (Negative)
--- NOTE | 2020-09-15 13:10 | PM.IMPN ---
Progress Note: A&P Assessment and Plan (1) Acute encephalopathy: Code(s): G93.40 - Encephalopathy, unspecified Status: Acute Assessment and Plan: Patient with acute encephalopathy related to the RENETTA and uremia. Patient is confused at baseline. He had a CT brain on admission showing no acute findings. He had a recent MRI brain last admission also showing no acute findings. Encephalopathy symptoms improved with improvement of Na but still confused. BUN still elevated so HD may help with the persistent confusion. (2) NSTEMI (non-ST elevated myocardial infarction): Code(s): I21.4 - Non-ST elevation (NSTEMI) myocardial infarction Status: Acute Assessment and Plan: Troponin 5.9 on admission and have been trending down. EKG showing no acute findings. Contineu ASA. Echo showing EF 20% and grade I diastolic dysfunction but no mention of wall motion abnormalities. Cardiology following and appreciate their input. Adjust meds for his low EF when able. (3) Sepsis: Qualifiers: Sepsis acute organ dysfunction status: with acute organ dysfunction Sepsis type: sepsis due to unspecified organism Severe sepsis acute organ dysfunction type: encephalopathy Severe sepsis shock status: without septic shock Qualified Code(s): A41.9 - Sepsis, unspecified organism; R65.20 - Severe sepsis without septic shock; G93.40 - Encephalopathy, unspecified Code(s): A41.9 - Sepsis, unspecified organism Status: Acute Assessment and Plan: Pt present on admission with leukocytosis, tachycardia, tachypnea and RENETTA. BCx NGTD. UA not consistent with UTI. CXR showing improvement. Consider MRSA PNA given that he was treated with Cefepime for 7 days prior to last discharge. Consider findings related to severe dehydration. Vanco started 09/13/20. (4) Acute respiratory failure with hypoxia: Code(s): J96.01 - Acute respiratory failure with hypoxia Status: Acute Assessment and Plan: Patient was on room air at last discharge on 09/08/20. ABG here showing 7.42/34/64 on RA. CXR 09/12 showing improving bilateral airspace disease. Vancomycin started for possible PNA. COVID negative. Weaned to room air now. (5) RENETTA (acute kidney injury): Code(s): N17.9 - Acute kidney failure, unspecified Status: Acute Assessment and Plan: BUN 78 and Cr 5.2 on admission. [place] related to dehydration. IV fluids started and levels have worsened to 102 and 7.8 respectfully. Bicarb down but potassium normal. UOP still poor. Nephrology following. Renal US pending. Hemodialysis is being considered. (6) Leukocytosis: Qualifiers: Leukocytosis type: unspecified Qualified Code(s): D72.829 - Elevated white blood cell count, unspecified Code(s): D72.829 - Elevated white blood cell count, unspecified Status: Acute Assessment and Plan: WBC elevated related to above. UA not consistent with UTI. CXR showing improvement from prior findings. Suspect elevated WBC is from a stress response and/or pneumonia. White count improving. Follow (7) Chronic anemia: Code(s): D64.9 - Anemia, unspecified Status: Chronic Assessment and Plan: Hgb last admission was in the 7-8 range mostly some of which related to the large left LE hematoma. Hgb better now in the 8-9 range. Will follow. (8) Hypernatremia: Code(s): E87.0 - Hyperosmolality and hypernatremia Status: Acute Assessment and Plan: Na 151 on admission related to severe dehydration. Patient was on D5W and Na normal now. Fluids stopped. Follow closely. (9) Transaminitis: Code(s): R74.01 - Elevation of levels of liver transaminase levels Status: Acute Assessment and Plan: AST 517 and ALT 412 on admission. AST better at 191 and ALT down to 197. Recent hepatitis panel negative. Possibly shock liver. Will follow for now. Check
--- NOTE | 2020-09-15 14:31 | PM.CNGS ---
Assessment and Plan Assessment and plan (1) Acute renal failure (ARF): Code(s): N17.9 - Acute kidney failure, unspecified Status: Acute Assessment and Plan: I have reviewed the chest x-rays and performed a brief review of the chart. Will proceed with urgent placement of Honorio dialysis catheter. Patient will be allowed to start hemodialysis today after chest x-ray has been reviewed for confirmation of placement. (2) Acute encephalopathy: Code(s): G93.40 - Encephalopathy, unspecified Status: Acute (3) Sepsis: Qualifiers: Sepsis type: sepsis due to unspecified organism Sepsis acute organ dysfunction status: with acute organ dysfunction Severe sepsis acute organ dysfunction type: encephalopathy Severe sepsis shock status: without septic shock Qualified Code(s): A41.9 - Sepsis, unspecified organism; R65.20 - Severe sepsis without septic shock; G93.40 - Encephalopathy, unspecified Code(s): A41.9 - Sepsis, unspecified organism Status: Acute History of Present Illness Consult details Consult date: 09/15/20 Requesting physician: Edgar Lee MD Narrative: This is a 75-year-old man who I am asked to see for urgent placement of a temporary dialysis catheter. He is confused and history is difficult to obtain from him, therefore history is obtained from the chart. He was admitted on 09/13/2020 with altered mental status, acute renal failure, and sepsis. His BUN and creatinine have continued to rise despite IV hydration. He is now in need of hemodialysis. Review of Systems Review of Systems: ROS unobtainable: Yes unobtainable due to mental status PMFSH Past Medical History Medical History Anxiety Anxiety and depression Depression Diverticulitis DVT (deep venous thrombosis) GI bleed Heart attack History of myocardial infarction History of poliomyelitis Hyperlipidemia Hypernatremia Hypertension Macrocytic anemia Macular degeneration disease Malignant melanoma Parkinsons Surgical History Surgical History H/O cardiac catheterization H/O heart artery stent Stents in the proximal circ and OM2 in 2010 History of colonoscopy History of tonsillectomy Family History Family History Mother CHF (congestive heart failure) Father Malignant neoplasm of prostate Leukemia Social History Social History Social History: the patient used to smoke until he met his and then he quit. He used to smoke anywhere from a pack to half a pack a day but quit approximately 14 years ago. He rarely drinks. He quit drinking about the same did quit smoking. 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 He had 1 biological child a son who was murdered at the age of 21 related to drug activity. 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 He desires to be a full code. His is the durable power assistant prosecuting attorney Smoking status: Former smoker Tobacco type: cigarettes Second hand tobacco smoke exposure: No Alcohol intake: former Substance use: never Substance use type: former substance user and marijuana Other substance usage details: no drinking or smoking in 14 yrs Gender identity (if verbalized by the patient): Male Spiritual care concerns: No Meds Home Medications and Allergies Home Medications Medication Instructions Recorded Confirmed Type atorvastatin 40 mg PO DAILY 08/12/20 09/13/20 History metoprolol succinate 25 mg PO DAILY 08/12/20 09/13/20 History primidone 500 mg PO QID 08/12/20 09/13/20 History ropinirole 4 mg PO HS 08/12/20 09/13/20 History Eliquis 5 mg PO BID #74 tablet 08/14/20 09/13/20 Rx acetaminophen [Mapap 650 mg PO Q4H PRN #30 tablet 09/08/20 09/13/20 Rx (acetaminophen)]
--- NOTE | 2020-09-15 14:37 | P.OP_ITS ---
Procedure Note - Detailed Date of procedure: 09/15/20 Pre-op diagnosis: Acute renal failure, acute encephalopathy, sepsis Post-op diagnosis: same Procedure performed: Right IJ Gilberto Dialysis Catheter Placement with U/S Guidance Description of procedure: * Procedure, risks, benefits, and alternatives were discussed with the patient. Written consent was obtained and placed in chart prior to procedure. Patient was placed supine in hospital bed and placed in slight Trendelenburg position. Time-out was done to confirm patient and procedure. His right neck and chest area was prepped and draped in sterile fashion using chlorhexidine prep. SonoSite ultrasound was used to identify the right internal jugular vein. 1% lidocaine was infiltrated directly over this area. An 18 gauge introducer needle was advanced under ultrasound guidance directly into the right internal jugular vein. Dark nonpulsatile blood was aspirated. A 0.035 in guidewire was then advanced through the needle. The guidewire advanced smoothly. The needle was then withdrawn leaving the guidewire in place. A small surekha incision was made at the insertion site using an 11 blade scalpel. The blue dilators were then advanced over the guidewire to dilate the vessel. The 12 Hungarian triple lumen 16 cm dialysis catheter was then advanced over the guidewire until it was in place. The guidewire was removed. All 3 lumens were then aspirated and fl ushed with sterile saline. All 3 lumens function with ease. Caps were placed over the lumens. A stat lock was placed at the insertion site and the catheter was secured in place using 3 0 nylon simple interrupted sutures. A Tegaderm dressing was then applied over top. The patient was then sat up in bed and chest x-ray was ordered to confirm placement. Implants: 12 Hungarian 16 cm triple-lumen dialysis catheter Anesthesia: local ( 1% lidocaine) Surgeon: Alvaro Mercer DO Estimated blood loss (mL): 5 Complications: No immediate complications Condition: stable Disposition: floor Findings: Ultrasound guidance was used to identify the right internal jugular vein. This was visualized as a compressible vessel just lateral to the pulsatile carotid artery. The vein was accessed with an 18 gauge introducer needle under ultrasound guidance. The guidewire advanced smoothly. X-ray was ordered to confirm placement.
[2020-09-15] MEDS: CENTRAL LINE FLUSH 10 ML IV PUSH ×2 (17:52→22:39)
[2020-09-15] MEDS: SODIUM CHLORIDE 0.9% IV 1,000 ML 100 ML IV CONT (18:45)
[2020-09-15] MEDS: HEPARIN SODIUM 1,000 UNITS/ML VIAL 1000 UNITS IV PUSH (20:47)
[2020-09-15] MEDS: EPOETIN ALFA-EPBX 10,000 UNITS/ML VIAL 10000 UNITS IV PUSH (20:47)
--- NOTE | 2020-09-15 22:47 | PC.NURSE ---
09/15/20 at 2227-Pt assisted back from dialysis per this RN and welder repair to room [address] states that the Pt had 1L pulled off during dialysis and had no complications during his treatment. Pt assessed and will continue to monitor patient closely.
[2020-09-16] VITALS (18 sets, daily range): BP systolic 105–137; BP diastolic 51–95; PULSE 87–144; RESP 16–24; TEMP 36.3–37; O2SAT 94–99
[2020-09-16] MEDS: CENTRAL LINE FLUSH 20 ML IV PUSH (03:55)
[2020-09-16] MEDS: CENTRAL LINE FLUSH 10 ML IV PUSH ×4 (04:04→20:24)
[2020-09-16 04:19] LABS: Hematocrit 26.3 % (42.0-52.0); Hemoglobin 8.7 g/dL (14.0-18.0); Mean Corpuscular HGB Conc 33.1 g/dl (32-36); Mean Corpuscular Hemoglobin 30.2 pg (26-34); Mean Corpuscular Volume 91.3 fl (80-100); Platelet Count Result 223 k/mm3 (150-375); Red Blood Count 2.88 M/mm3 (4.6-6.20); Red Cell Distribution Width 13.8 % (11.5-14.5); White Blood Count 15.2 K/mm3 (4.5-10.0)
[2020-09-16 04:37] LABS: Alanine Aminotransferase 199 U/L (4-50); Albumin Level 3.2 g/dL (3.5-5.1); Alkaline Phosphatase 148 U/L (38-126); Anion Gap 16 mmol/L (8-16); Aspartate Amino Transferase 204 U/L (17-59); Bilirubin,Total 0.6 mg/dL (0.2-1.3); Blood Urea Nitrogen 59 mg/dL (9-20); Calcium 8.1 mg/dL (8.4-10.2); Carbon Dioxide 27 mmol/L (22-30); Chloride 94 mmol/L (98-107); Estimated CRCL calculation 12 ml/min; Estimated Glomerular Filt Rate 11; Glucose 98 mg/dL (75-110); Phosphorus 5.9 mg/dL (2.5-4.5); Sodium 137 mmol/L (137-145)
[2020-09-16 04:54] LABS: Vancomycin Random 17.6 ug/mL (10-20)
--- NOTE | 2020-09-16 08:24 | PM.PNNEP ---
Progress Note: A&P Assessment and Plan (1) RENETTA (acute kidney injury): Code(s): N17.9 - Acute kidney failure, unspecified Status: Acute Assessment and Plan: Acute kidney injury. Renal ultrasound is negative Urine electrolytes are non pre renal. Urinalysis is bland but does show 2+ protein. Etiology may be due to dehydration or ATN. He had dialysis yesterday. Today mentation seems better. Will do another treatment tomorrow (2) Acute encephalopathy: Code(s): G93.40 - Encephalopathy, unspecified Status: Acute Assessment and Plan: Improved with dialysis. (3) Hypernatremia: Code(s): E87.0 - Hyperosmolality and hypernatremia Status: Acute Assessment and Plan: Resolved (4) Sepsis: Qualifiers: Sepsis type: sepsis due to unspecified organism Sepsis acute organ dysfunction status: with acute organ dysfunction Severe sepsis acute organ dysfunction type: encephalopathy Severe sepsis shock status: without septic shock Qualified Code(s): A41.9 - Sepsis, unspecified organism; R65.20 - Severe sepsis without septic shock; G93.40 - Encephalopathy, unspecified Code(s): A41.9 - Sepsis, unspecified organism Status: Acute Assessment and Plan: Blood cultures negative so far Pneumonia on chest x-ray Vancomycin on board (5) Transaminitis: Code(s): R74.01 - Elevation of levels of liver transaminase levels Status: Acute Assessment and Plan: suggest shock liver Rhabdomyolysis could also cause high levels of AST and ALT. Will check a CPK Subjective Date/time seen: 09/16/20 08:24 Interval history: Patient is alert. He seems more together today. He feels okay. No chest pain or shortness of breath. Review of Systems Cardiovascular: Cardiovascular: Reports no additional cardiovascular complaints Respiratory: Respiratory: Reports no additional respiratory complaints Gastrointestinal: Gastrointestinal: Reports no additional gastrointestinal complaints Genitourinary: Genitourinary: Reports no additional male genitourinary complaints Exam Narrative: Exam Narrative: General: Elderly male laying in bed and in NAD Heart: normal S1 and S2; no rub Lungs: Fairly clear. Abdomen: soft, nontender, nondistended, positive bowel sounds Extremities: no cyanosis or clubbing; no edema Skin: No rash or subcu nodules Objective Data Vital Signs Vital Signs: Vital Signs - 24 hr 09/15/20 09:36 09/15/20 10:06 09/15/20 12:00 Temperature 36.2 C L Pulse Rate 90 89 85 Respiratory Rate 28 H Blood Pressure 104/54 L Pulse Oximetry 95 09/15/20 12:48 09/15/20 14:00 09/15/20 16:00 Temperature 36.4 C Pulse Rate 82 84 85 Respiratory Rate 24 H Blood Pressure 121/64 Pulse Oximetry 99 09/15/20 17:13 09/15/20 18:00 09/15/20 19:27 Temperature 36.4 C 36.5 C Pulse Rate 89 120 H 88 Respiratory Rate 28 H 18 Blood Pressure 139/79 143/81 H Pulse Oximetry 100 09/15/20 19:36 09/15/20 19:45 09/15/20 20:00 Temperature Pulse Rate 87 94 96 Respiratory Rate Blood Pressure 146/79 H 119/73 132/76 Pulse Oximetry 09/15/20 20:15 09/15/20 20:30 09/15/20 20:45 Temperature Pulse Rate 98 83 65 Respiratory Rate Blood Pressure 130/76 117/51 L 99/52 L Pulse Oximetry 09/15/20 21:00 09/15/20 21:15 09/15/20 21:30 Temperature Pulse Rate 104 H 87 106 H Respiratory Rate Blood Pressure 97/68 L 126/57 L 123/66 Pulse Oximetry 09/15/20 21:45 09/15/20 22:00 09/15/20 22:06 Temperature Pulse Rate 61 108 H 107 H Respiratory Rate Blood Pressure 98/60 L 104/50 L Pulse Oximetry 09/15/20 22:15 09/15/20 22:30 09/16/20 00:00 Temperature 36.6 C 36.4 C L 36.3 C L Pulse Rate 105 H 108 H 108 H Respiratory Rate 18 28 H 16 Blood Pressure 119/61 119/80 137/70 Pulse Oximetry 94 96 09/16/20 02:00 09/16/20 03:50 09/16/20 04:00 Temperature 36.4 C
[2020-09-16] MEDS: SOD HYPOCHLORITE 1/4 STRENGTH 473 ML 1 APPLIC TOPICAL ×2 (09:09→20:24)
[2020-09-16] MEDS: ASPIRIN 300 MG SUPPOSITORY RECTAL (09:09)
--- NOTE | 2020-09-16 09:33 | PM.PNCARD ---
Progress Note: A&P Additional Plan 75-year-old gentleman with: Ischemic heart disease with previous percutaneous revascularization in the remote past. Patient presents with altered mental status probably due to uremia and is clinically better following 1st dialysis treatment yesterday. Echocardiogram does demonstrate poor left ventricular systolic function and he will require initiation of medication for this. He is not in overt state of volume overload at this time so I will wait until he hopefully passes swallowing studies. He is not having any overt ischemic chest pain so at this time it is not my intention to conduct an ischemia workup given his comorbidities particularly his advanced renal failure Ravi Smiley MD [facility] Subjective Date/time seen: 09/16/20 09:33 Interval history: Follow-up visit in this 75-year-old man with: Ischemic heart disease and echocardiographic evidence of significant decline in LV systolic function. Worsening of chronic kidney disease with placement of percutaneous dialysis catheter yesterday. Patient underwent 1st dialysis treatment last evening. He is much more alert and appropriate this morning. Still NPO Plan for swallowing evaluation later today Exam Narrative: Exam Narrative: Ill-appearing white male who lies motionless in bed, very dry mucous membranes, staring out of the window. Very delayed answers, if you response at all, to questions Const: General: comfortable, no acute distress and confusion Orientation/consciousness: confusion Other: Lethargic 75-year-old man is arousable upon entering the room but only partially answers questions and largely incoherent HENMT: General nose exam: no epistaxis Mouth: Yes moist mucous membranes and Yes dry mucous membranes Eyes: Sclera: sclerae normal Pupils: Equal, round and reactive pupils present EOM: EOMs intact bilaterally Neck: Neck: supple and no JVD Thyroid: thyroid normal Carotids: no bruits Lymphatic: lymphadenopathy not noted Resp: Effort & Inspection: normal respiratory effort Auscultation: clear to auscultation bilaterally Cardio: Rate: regular rate Rhythm: regular rhythm Heart sounds: no murmurs GI: Inspection: non-distended Auscultation: normal bowel sounds Skin: General skin exam: normal color and no rashes or lesions noted Neuro: General: confusion Cranial nerves: Yes Equal, round and reactive pupils present Cognition (Neuro): abnormal cognition Speech: No normal speech Other: Encephalopathic as detailed above Extrem: General: normal to inspection, no edema and no pedal edema Left lower extremity: joint enlargement noted (Swollen left knee with hematoma) Psych: Mental Status: mental status grossly abnormal Affect: No normal affect Other: Withdrawn and slow to respond Objective Data Vital Signs Vital Signs: Vital Signs - 24 hr 09/15/20 09:36 09/15/20 10:06 09/15/20 12:00 Temperature 36.2 C L Pulse Rate 90 89 85 Respiratory Rate 28 H Blood Pressure 104/54 L Pulse Oximetry 95 09/15/20 12:48 09/15/20 14:00 09/15/20 16:00 Temperature 36.4 C Pulse Rate 82 84 85 Respiratory Rate 24 H Blood Pressure 121/64 Pulse Oximetry 99 09/15/20 17:13 09/15/20 18:00 09/15/20 19:27 Temperature 36.4 C 36.5 C Pulse Rate 89 120 H 88 Respiratory Rate 28 H 18 Blood Pressure 139/79 143/81 H Pulse Oximetry 100 09/15/20 19:36 09/15/20 19:45 09/15/20 20:00 Temperature Pulse Rate 87 94 96 Respiratory Rate Blood Pressure 146/79 H 119/73 132/76 Pulse Oximetry 09/15/20 20:15 09/15/20 20:30 09/15/20 20:45 Temperature Pulse Rate 98 83 65 Respiratory Rate Blood Pressure 130/76 117/51 L 99/52 L Pulse Oximetry 09/15/20 21:00 09/15/20 21:15 09/15/20 21:30 Temperature Pulse Rate 104 H 87 106 H Respiratory Rate Blood Pressure 97/68 L 126/57 L 123/66 Pulse Oximetry 09/15/20 21:45 09/15/20 22:00 09/15/20 22:06 Temperature Pulse Rate 61 108 H 107 H
[2020-09-16 09:46] LABS: Creatine Kinase 74 U/L (55-170)
--- NOTE | 2020-09-16 10:07 | PM.IMPN ---
Progress Note: A&P Assessment and Plan (1) Paroxysmal atrial fibrillation: Code(s): I48.0 - Paroxysmal atrial fibrillation Status: Acute Assessment and Plan: Patient has developed intermittent AFib. Probably related to the cardiomyopathy but had recent DVT over a month ago so could be related to PE but felt less likely given no hypoxia or chest pain. Will await swallow evaluation but consider IV Lopressor if persistent AFIb. Add Heparin drip until Eliquis can be resumed. (2) Acute encephalopathy: Code(s): G93.40 - Encephalopathy, unspecified Status: Acute Assessment and Plan: Patient with acute encephalopathy related to the RENETTA and uremia. Patient is confused at baseline. He had a CT brain on admission showing no acute findings. He had a recent MRI brain last admission also showing no acute findings. Encephalopathy symptoms improving since resolution of the hypernatremia and with HD. Continue to try to re-orient patient. (3) NSTEMI (non-ST elevated myocardial infarction): Code(s): I21.4 - Non-ST elevation (NSTEMI) myocardial infarction Status: Acute Assessment and Plan: Troponin 5.9 on admission and have been trending down. EKG showing no acute findings. Continue ASA. Echo showing EF 20% and grade I diastolic dysfunction but no mention of wall motion abnormalities. Cardiology following and appreciate their input. Adjust meds for his low EF when able. (4) Cardiomyopathy: Code(s): I42.9 - Cardiomyopathy, unspecified Status: Acute Assessment and Plan: Echo 09/14 sowing LV chamber dimension moderately enlarged with severely reduced systolic function (EF 20-25%). Grade I diastolic dysfunction present as well. No old Echo but informed the EF is depressed chronically but not to this extent. Could be related to the renal failure and/or NSTEMI. As above. (5) Sepsis: Qualifiers: Sepsis acute organ dysfunction status: with acute organ dysfunction Sepsis type: sepsis due to unspecified organism Severe sepsis acute organ dysfunction type: encephalopathy Severe sepsis shock status: without septic shock Qualified Code(s): A41.9 - Sepsis, unspecified organism; R65.20 - Severe sepsis without septic shock; G93.40 - Encephalopathy, unspecified Code(s): A41.9 - Sepsis, unspecified organism Status: Acute Assessment and Plan: Pt present on admission with leukocytosis, tachycardia, tachypnea and RENETTA. BCx NGTD. UA not consistent with UTI. CXR 09/15 showing improvement. Consider MRSA PNA given that he was treated with Cefepime for 7 days prior to last discharge. Consider findings related to severe dehydration. Vanco started 09/13/20. (6) Acute respiratory failure with hypoxia: Code(s): J96.01 - Acute respiratory failure with hypoxia Status: Acute Assessment and Plan: Patient was on room air at last discharge on 09/08/20. ABG here showing 7.42/34/64 on RA. CXR 09/12 showing improving bilateral airspace disease. Vancomycin started for possible PNA. COVID negative. CXR 09/15 showing improvement. Remains on room air now. (7) RENETTA (acute kidney injury): Code(s): N17.9 - Acute kidney failure, unspecified Status: Acute Assessment and Plan: BUN 78 and Cr 5.2 on admission. [place] related to dehydration. IV fluids started and levels worsened to 102 and 7.8 respectfully on 09/15. Bicarb down but potassium normal. UOP still poor. Renal US normal. Honorio placed 09/15 and patient underwent HD. He tolerated this well. Nephrology following and appreciate their input. (8) Leukocytosis: Qualifiers: Leukocytosis type: unspecified Qualified Code(s): D72.829 - Elevated white blood cell count, unspecified Code(s): D72.829 - Elevated white blood cell count, unspecified Status: Acute Assessment and Plan: WBC elevated related to above. UA not consist
--- NOTE | 2020-09-16 11:08 | PCSTNOTE ---
Bedside swallow evaluation completed. Please see ST evaluation for further details and recommendations.
[2020-09-16] MEDS: HEPARIN SOD/D5W 100 UNITS/ML 25,000 UNITS/250 ML BAG 14 UNITS IV CONT (11:47)
[2020-09-16] MEDS: HEPARIN SODIUM 5,000 UNITS/ML VIAL 6500 UNITS IV PUSH (11:47)
[2020-09-16 12:09] LABS: INR 2.7; Prothrombin Time 29.2 Seconds (11.1-14.7)
[2020-09-16 12:10] LABS: Partial Thromboplastin Time 54.2 SECONDS (22.3-36.8)
--- NOTE | 2020-09-16 12:15 | ECG_ITS ---
Measurements Intervals [place] Rate: 96 P: 49 LA: 180 QRS: -52 QRSD: 129 T: 82 QT: 408 QTc: 517 Interpretive Statements SINUS RHYTHM LEFT AXIS DEVIATION BORDERLINE AV CONDUCTION DELAY LEFT BUNDLE BRANCH BLOCK CANNOT RULE OUT SEPTAL INFARCT, AGE INDETERMINATE BASELINE WANDER- I ABNORMAL ECG Electronically Signed On 09-16-2020 13:39:43 [employer] TEST TECHNICIAN by Dom Murphy D.O.
[2020-09-17] VITALS (35 sets, daily range): BP systolic 98–133; BP diastolic 52–80; PULSE 78–116; RESP 16–24; TEMP 36.6–37.4; O2SAT 93–99
[2020-09-17 02:04] LABS: Basophils Absolute Auto 0.1 K/mm3 (0.0-0.1); Basophils Percent Auto 0.6 % (0.2-1.2); Eosinophils Absolute Auto 1.1 K/mm3 (0-0.3); Eosinophils Percent Auto 6.8 % (0-4.4); Hematocrit 25.1 % (42.0-52.0); Hemoglobin 8.2 g/dL (14.0-18.0); Immature Granulocyte Absolute 0.11 K/mm3 (0.00-0.031); Immature Granulocyte Percent A 0.7 % (0-0.5); Lymphocytes Absolute Auto 1.17 K/mm3 (0.9-3.2); Lymphocytes Percent Auto 7.4 % (18.3-44.2); Mean Corpuscular HGB Conc 32.7 g/dl (32-36); Mean Corpuscular Hemoglobin 29.8 pg (26-34); Mean Corpuscular Volume 91.3 fl (80-100); Mean Platelet Volume 11.3 fl (7.4-10.4); Monocytes Absolute Auto 1.2 K/mm3 (0.1-0.6); Monocytes Percent Auto 7.5 % (2.6-8.5); Neutrophils Absolute Auto 12.2 K/mm3 (1.3-6.7); Platelet Count Result 290 k/mm3 (150-375); Red Blood Count 2.75 M/mm3 (4.6-6.20); White Blood Count 15.8 K/mm3 (4.5-10.0)
[2020-09-17 02:16] LABS: Partial Thromboplastin Time 98.3 SECONDS (22.3-36.8)
[2020-09-17 02:37] LABS: Alanine Aminotransferase 154 U/L (4-50); Albumin Level 3.3 g/dL (3.5-5.1); Alkaline Phosphatase 129 U/L (38-126); Anion Gap 13 mmol/L (8-16); Aspartate Amino Transferase 115 U/L (17-59); Bilirubin,Total 0.5 mg/dL (0.2-1.3); Blood Urea Nitrogen 77 mg/dL (9-20); Carbon Dioxide 27 mmol/L (22-30); Chloride 95 mmol/L (98-107); Estimated CRCL calculation 9 ml/min; Estimated Glomerular Filt Rate 8; Glucose 109 mg/dL (75-110); Magnesium 2.4 mg/dL (1.6-2.3); Phosphorus 7.6 mg/dL (2.5-4.5); Potassium 4.1 mmol/L (3.4-5.0); Sodium 135 mmol/L (137-145)
[2020-09-17] MEDS: CENTRAL LINE FLUSH 10 ML IV PUSH ×3 (05:17→21:27)
[2020-09-17] MEDS: HEPARIN SOD/D5W 100 UNITS/ML 25,000 UNITS/250 ML BAG 12 UNITS IV CONT (05:19)
[2020-09-17] MEDS: SOD HYPOCHLORITE 1/4 STRENGTH 473 ML 1 APPLIC TOPICAL ×2 (08:20→21:27)
--- NOTE | 2020-09-17 08:54 | PC.NURSE ---
Pt to dialysis via hospital bed.
[2020-09-17 10:09] LABS: Partial Thromboplastin Time 80.3 SECONDS (22.3-36.8)
--- NOTE | 2020-09-17 10:17 | PM.PNNEP ---
Progress Note: A&P Assessment and Plan (1) RENETTA (acute kidney injury): Code(s): N17.9 - Acute kidney failure, unspecified Status: Acute Assessment and Plan: Acute kidney injury. Renal ultrasound is negative Urine electrolytes are non pre renal. Urinalysis is bland but does show 2+ protein. Etiology probably ATN. due for dialysis today. He will need a PermCath. (2) Acute encephalopathy: Code(s): G93.40 - Encephalopathy, unspecified Status: Acute Assessment and Plan: Improved with dialysis. (3) Hypernatremia: Code(s): E87.0 - Hyperosmolality and hypernatremia Status: Acute Assessment and Plan: Resolved (4) Sepsis: Qualifiers: Sepsis type: sepsis due to unspecified organism Sepsis acute organ dysfunction status: with acute organ dysfunction Severe sepsis acute organ dysfunction type: encephalopathy Severe sepsis shock status: without septic shock Qualified Code(s): A41.9 - Sepsis, unspecified organism; R65.20 - Severe sepsis without septic shock; G93.40 - Encephalopathy, unspecified Code(s): A41.9 - Sepsis, unspecified organism Status: Acute Assessment and Plan: Blood cultures negative so far Pneumonia on chest x-ray Vancomycin on board (5) Transaminitis: Code(s): R74.01 - Elevation of levels of liver transaminase levels Status: Acute Assessment and Plan: suggest shock liver CPK is okay. Subjective Date/time seen: 09/17/20 10:17 Interval history: Patient is alert. he is just tired. He is not in any pain. He is not short of breath. Review of Systems Cardiovascular: Cardiovascular: Reports no additional cardiovascular complaints Respiratory: Respiratory: Reports no additional respiratory complaints Gastrointestinal: Gastrointestinal: Reports no additional gastrointestinal complaints Genitourinary: Genitourinary: Reports no additional male genitourinary complaints Exam Narrative: Exam Narrative: General: Elderly male laying in bed and in NAD Heart: normal S1 and S2; no rub or gallop Lungs: Fairly clear. Abdomen: soft, nontender, nondistended, positive bowel sounds Extremities: no cyanosis or clubbing; no edema Skin: No rash Objective Data Vital Signs Vital Signs: Vital Signs - 24 hr 09/16/20 11:52 09/16/20 12:00 09/16/20 14:00 Temperature 36.9 C Pulse Rate 135 H 139 H 96 Respiratory Rate 24 H Blood Pressure 110/51 L Pulse Oximetry 95 09/16/20 16:00 09/16/20 17:36 09/16/20 18:00 Temperature 36.6 C Pulse Rate 95 90 87 Respiratory Rate 24 H Blood Pressure 128/70 Pulse Oximetry 98 09/16/20 19:48 09/16/20 20:00 09/16/20 22:00 Temperature 36.6 C Pulse Rate 90 94 94 Respiratory Rate 18 18 Blood Pressure 129/74 Pulse Oximetry 95 96 09/16/20 23:24 09/17/20 00:00 09/17/20 02:00 Temperature 36.5 C Pulse Rate 98 96 96 Respiratory Rate 20 18 Blood Pressure 133/69 Pulse Oximetry 94 97 09/17/20 04:00 09/17/20 06:00 09/17/20 07:57 Temperature 36.6 C 36.6 C Pulse Rate 94 97 87 Respiratory Rate 18 20 Blood Pressure 133/69 131/73 Pulse Oximetry 97 99 09/17/20 08:50 09/17/20 09:10 09/17/20 09:15 Temperature 36.6 C Pulse Rate 98 96 98 Respiratory Rate 18 Blood Pressure 118/70 115/69 133/68 Pulse Oximetry 09/17/20 09:20 09/17/20 09:30 09/17/20 09:45 Temperature Pulse Rate 100 107 H Respiratory Rate Blood Pressure 107/52 L 116/57 L Pulse Oximetry 95 09/17/20 10:00 09/17/20 10:15 Temperature Pulse Rate 111 H 111 H Respiratory Rate Blood Pressure 107/67 104/67 Pulse Oximetry Intake/Output Intake/Output: Intake & Output 09/14/20 09/15/20 09/16/20 09/17/20 23:59 23:59 23:59 23:59 Intake Total 3000 1680 220 250 Output Total 325 1225 225 50 Balance 2675 455 -5 200 Meds/Results Medications: Active Medications Generic Name Dose Route
--- NOTE | 2020-09-17 10:20 | PM.EVENT ---
Event Note Event Note Event Note: Patient is on dialysis and tolerating it well. He was seen at 9:45 a.m.
--- NOTE | 2020-09-17 10:37 | PM.PNCARD ---
Progress Note: A&P Assessment and Plan (1) Elevated troponin: Code(s): R77.8 - Other specified abnormalities of plasma proteins Status: Acute Assessment and Plan: Elevated troponins though flat, probably not related to an acute coronary event since there was no chest pain or EKG changes. May have (COVID?) myocarditis, or poor clearing of troponins because of chronic CAD and acute renal failure. Will treat conservatively. Continue aspirin. No statin at this time because of elevated liver enzymes. (2) CAD (coronary artery disease): Code(s): I25.10 - Atherosclerotic heart disease of [place] coronary artery without angina pectoris Status: Acute Assessment and Plan: History of CAD and stents in 2010, normal LV function in the past but recent significant decline. (3) Acute renal failure (ARF): Code(s): N17.9 - Acute kidney failure, unspecified Status: Acute Assessment and Plan: Acute renal failure probably related to dehydration and sepsis (4) Sepsis: Qualifiers: Sepsis type: sepsis due to unspecified organism Sepsis acute organ dysfunction status: with acute organ dysfunction Severe sepsis acute organ dysfunction type: encephalopathy Severe sepsis shock status: without septic shock Qualified Code(s): A41.9 - Sepsis, unspecified organism; R65.20 - Severe sepsis without septic shock; G93.40 - Encephalopathy, unspecified Code(s): A41.9 - Sepsis, unspecified organism Status: Acute Assessment and Plan: Admitted with altered mental status, low blood pressure, low-grade fever, probably improved a bit overnight with IV fluids and antibiotics. But oxygenation is better today. Recent COVID associated pneumonia. (5) Right leg DVT: Qualifiers: Affected thrombotic vein of extremity: unspecified vein of extremity Chronicity: acute Qualified Code(s): I82.401 - Acute embolism and thrombosis of unspecified deep veins of right lower extremity Code(s): I82.401 - Acute embolism and thrombosis of unspecified deep veins of right lower extremity Status: Acute Assessment and Plan: DVT noted last admission, on Eliquis. (6) History of 2019 novel coronavirus disease (COVID-19): Code(s): Z86.19 - Personal history of other infectious and parasitic diseases Status: Acute Assessment and Plan: Positive a few weeks ago. Now testing negative (7) Cardiomyopathy: Code(s): I42.9 - Cardiomyopathy, unspecified Status: Acute Assessment and Plan: Previously normal EF. Possibly related to COVID infection. Start some low-dose Toprol XL 12.5 mg p.o. daily. A titrate as able as well as initiate other standard heart failure regimen as BP and renal function will tolerate Subjective Date/time seen: 09/17/20 10:37 Interval history: Follow-up visit in this 75-year-old man with: Ischemic heart disease and echocardiographic evidence of significant decline in LV systolic function. Worsening of chronic kidney disease with placement of percutaneous dialysis catheter yesterday. Patient underwent 1st dialysis treatment last evening. Date of service 09/17/2020: He is alert and oriented but still states he feels short of breath. No chest pain. No syncope Review of Systems Review of Systems: ROS unobtainable: Yes unobtainable due to mental status Constitutional: Constitutional: Reports weakness Eyes: Eyes: Reports no additional eye complaints ENT: Reports system reviewed and no additional complaints, except as documented Cardiovascular: Cardiovascular: Reports no additional cardiovascular complaints Respiratory: Respiratory: Reports no additional respiratory complaints Genitourinary: Genitourinary: Reports no additional male genitourinary complaints Musculoskeletal:
--- NOTE | 2020-09-17 10:50 | PC.NURSE ---
Received call from can crimper stating that pt was diaphoretic and drowsy. dry color mixer requesting a stat blood glucose be checked per Dr Rivas's request. Blood glucose was normal, see lab results. Temperature was checked and was normal. Will continue to monitor.
[2020-09-17 10:51] LABS: Glucose Point of Care 123 (65-105)
[2020-09-17] MEDS: HEPARIN SODIUM 1,000 UNITS/ML VIAL 1000 UNITS IV PUSH (12:55)
--- NOTE | 2020-09-17 12:55 | PC.NURSE ---
Pt returned from dialysis via hospital bed.
[2020-09-17] MEDS: ASPIRIN 300 MG SUPPOSITORY RECTAL (13:09)
[2020-09-17] MEDS: METOPROLOL SUCCINATE EXT REL 12.5 MG TABCR PO (13:09)
--- NOTE | 2020-09-17 13:28 | PCDIET ---
Nutrition Follow-Up Complete: Nutrition Diagnosis: Inadequate oral intake related to diet order as evidenced by NPO status. Nutrition Goal: Patient to meet estimated nutritional needs. Goal not met; however, diet has been advanced to renal, dialysis, soft and bite size. PATIENT ACCOUNTS SPECIALIST recommendations noted. Recommend adding Nepro (425kcal, 19g protein) BID. Last recorded weight is 92 kg which is stable with last review. Bowel Motility: Last documented BM on 09/16/20 x 1. Labs Reviewed: Hgb (8.2), Hct (25.1), BUN (77), Cr (6.5), Na (135), Alb (3.3), PO4 (7.6), [place] Ca (8.56) Meds Noted: Heparin, Toprol XL, Vancomycin Additional Notes: Documented ulcers to coccyx and left heel. Will continue to monitor with same goal. Nutrition Monitoring and Evaluation: Follow up every 3 days.
[2020-09-17 17:23] LABS: Partial Thromboplastin Time 106.3 SECONDS (22.3-36.8)
--- NOTE | 2020-09-17 19:39 | PM.IMPN ---
Progress Note: A&P Assessment and Plan (1) Paroxysmal atrial fibrillation: Code(s): I48.0 - Paroxysmal atrial fibrillation Status: Acute Assessment and Plan: Patient has developed intermittent AFib. Probably related to the cardiomyopathy but had recent DVT over a month ago so could be related to PE but felt less likely given no hypoxia or chest pain. Metoprolol started. Continue Heparin. Add back Eliquis once it is determined if he will need a tunneled catheter. (2) Acute encephalopathy: Code(s): G93.40 - Encephalopathy, unspecified Status: Acute Assessment and Plan: Patient with acute encephalopathy related to the RENETTA and uremia. Patient is confused at baseline. He had a CT brain on admission showing no acute findings. He had a recent MRI brain last admission also showing no acute findings. Encephalopathy symptoms improving since resolution of the hypernatremia and with HD. Patient probably at baseline. (3) NSTEMI (non-ST elevated myocardial infarction): Code(s): I21.4 - Non-ST elevation (NSTEMI) myocardial infarction Status: Acute Assessment and Plan: Troponin 5.9 on admission and have been trending down. EKG showing no acute findings. Continue ASA and change to oral route. Echo showing EF 20% and grade I diastolic dysfunction but no mention of wall motion abnormalities. Cardiology following and appreciate their input. Toprol added. Hold on BRAD inhibitors until decided if patient will be chronic HD. Add back Lipitor when LFTs better. (4) Cardiomyopathy: Code(s): I42.9 - Cardiomyopathy, unspecified Status: Acute Assessment and Plan: Echo 09/14 showing LV chamber dimension moderately enlarged with severely reduced systolic function (EF 20-25%). Grade I diastolic dysfunction present as well. No old Echo but informed the EF is depressed chronically but not to this extent. Could be related to the renal failure and/or NSTEMI. As above. (5) Sepsis: Qualifiers: Sepsis acute organ dysfunction status: with acute organ dysfunction Sepsis type: sepsis due to unspecified organism Severe sepsis acute organ dysfunction type: encephalopathy Severe sepsis shock status: without septic shock Qualified Code(s): A41.9 - Sepsis, unspecified organism; R65.20 - Severe sepsis without septic shock; G93.40 - Encephalopathy, unspecified Code(s): A41.9 - Sepsis, unspecified organism Status: Acute Assessment and Plan: Pt present on admission with leukocytosis, tachycardia, tachypnea and RENETTA. BCx NGTD. UA not consistent with UTI. CXR 09/15 showing improvement. Consider MRSA PNA given that he was treated with Cefepime for 7 days prior to last discharge. Consider findings related to severe dehydration. Vanco started 09/13/20. (6) Acute respiratory failure with hypoxia: Code(s): J96.01 - Acute respiratory failure with hypoxia Status: Acute Assessment and Plan: Patient was on room air at last discharge on 09/08/20. ABG here showing 7.42/34/64 on RA. CXR 09/12 showing improving bilateral airspace disease. Vancomycin started for possible PNA. COVID negative. CXR 09/15 showing improvement. Remains on room air now. (7) RENETTA (acute kidney injury): Code(s): N17.9 - Acute kidney failure, unspecified Status: Acute Assessment and Plan: BUN 78 and Cr 5.2 on admission. [place] related to dehydration. IV fluids started and levels worsened to 102 and 7.8 respectfully on 09/15. Bicarb down but potassium normal. UOP still poor. Renal US normal. Honorio placed 09/15 and patient underwent HD. He tolerated this well. Nephrology following and appreciate their input. (8) Leukocytosis: Qualifiers: Leukocytosis type: unspecified Qualified Code(s): D72.829 - Elevated white blood cell count, unspecified Code(s): D72.829 - Elevated white blood cell count, unspecified S
[2020-09-17] MEDS: rOPINIRole HCL 1 MG TABLET 2 MG PO (21:27)
[2020-09-18] VITALS (17 sets, daily range): BP systolic 118–137; BP diastolic 62–73; PULSE 84–106; RESP 16–24; TEMP 36.2–36.6; O2SAT 94–99
[2020-09-18 00:24] LABS: Partial Thromboplastin Time 69.2 SECONDS (22.3-36.8)
[2020-09-18] MEDS: HEPARIN SODIUM 5,000 UNITS/ML VIAL 3000 UNITS IV PUSH (00:44)
[2020-09-18] MEDS: CENTRAL LINE FLUSH 10 ML IV PUSH ×3 (03:31→20:11)
[2020-09-18] MEDS: HEPARIN SOD/D5W 100 UNITS/ML 25,000 UNITS/250 ML BAG 12 UNITS IV CONT (03:31)
[2020-09-18 06:02] LABS: Basophils Absolute Auto 0.1 K/mm3 (0.0-0.1); Basophils Percent Auto 0.5 % (0.2-1.2); Hematocrit 25.7 % (42.0-52.0); Hemoglobin 8.4 g/dL (14.0-18.0); Immature Granulocyte Absolute 0.07 K/mm3 (0.00-0.031); Immature Granulocyte Percent A 0.5 % (0-0.5); Lymphocytes Absolute Auto 1.21 K/mm3 (0.9-3.2); Lymphocytes Percent Auto 9.5 % (18.3-44.2); Mean Corpuscular HGB Conc 32.7 g/dl (32-36); Mean Corpuscular Hemoglobin 30.4 pg (26-34); Mean Corpuscular Volume 93.1 fl (80-100); Monocytes Absolute Auto 1.2 K/mm3 (0.1-0.6); Monocytes Percent Auto 9.5 % (2.6-8.5); Neutrophils Absolute Auto 9.2 K/mm3 (1.3-6.7); Platelet Count Result 286 k/mm3 (150-375); Red Blood Count 2.76 M/mm3 (4.6-6.20); Red Cell Distribution Width 14.1 % (11.5-14.5); White Blood Count 12.8 K/mm3 (4.5-10.0)
[2020-09-18 06:36] LABS: Albumin Level 3.2 g/dL (3.5-5.1); Anion Gap 9 mmol/L (8-16); Blood Urea Nitrogen 49 mg/dL (9-20); Calcium 8.2 mg/dL (8.4-10.2); Carbon Dioxide 33 mmol/L (22-30); Chloride 92 mmol/L (98-107); Estimated CRCL calculation 13 ml/min; Estimated Glomerular Filt Rate 13; Glucose 120 mg/dL (75-110); Phosphorus 6.8 mg/dL (2.5-4.5); Potassium 3.9 mmol/L (3.4-5.0); Sodium 134 mmol/L (137-145)
[2020-09-18 07:12] LABS: Vancomycin Random 20.1 ug/mL (10-20)
[2020-09-18] MEDS: METOPROLOL SUCCINATE EXT REL 12.5 MG TABCR PO (08:35)
[2020-09-18] MEDS: ASPIRIN 81 MG CHEWABLE TABLET PO (08:36)
[2020-09-18] MEDS: SOD HYPOCHLORITE 1/4 STRENGTH 473 ML 1 APPLIC TOPICAL ×2 (08:36→20:10)
[2020-09-18 09:11] LABS: Partial Thromboplastin Time 43.5 SECONDS (22.3-36.8)
[2020-09-18] MEDS: HEPARIN SODIUM 5,000 UNITS/ML VIAL 6500 UNITS IV PUSH (09:24)
--- NOTE | 2020-09-18 11:07 | PM.PNCARD ---
Progress Note: A&P Assessment and Plan (1) Elevated troponin: Code(s): R77.8 - Other specified abnormalities of plasma proteins Status: Acute Assessment and Plan: Elevated troponins though flat, probably not related to an acute coronary event since there was no chest pain or EKG changes. May have (COVID?) myocarditis, or poor clearing of troponins because of chronic CAD and acute renal failure. Will treat conservatively. Continue aspirin. No statin at this time because of elevated liver enzymes. (2) CAD (coronary artery disease): Code(s): I25.10 - Atherosclerotic heart disease of [place] coronary artery without angina pectoris Status: Acute Assessment and Plan: History of CAD and stents in 2010, normal LV function in the past but recent significant decline. (3) Acute renal failure (ARF): Code(s): N17.9 - Acute kidney failure, unspecified Status: Acute Assessment and Plan: Acute renal failure probably related to dehydration and sepsis (4) Sepsis: Qualifiers: Sepsis type: sepsis due to unspecified organism Sepsis acute organ dysfunction status: with acute organ dysfunction Severe sepsis acute organ dysfunction type: encephalopathy Severe sepsis shock status: without septic shock Qualified Code(s): A41.9 - Sepsis, unspecified organism; R65.20 - Severe sepsis without septic shock; G93.40 - Encephalopathy, unspecified Code(s): A41.9 - Sepsis, unspecified organism Status: Acute Assessment and Plan: Admitted with altered mental status, low blood pressure, low-grade fever, probably improved a bit overnight with IV fluids and antibiotics. But oxygenation is better today. Recent COVID associated pneumonia. (5) Right leg DVT: Qualifiers: Affected thrombotic vein of extremity: unspecified vein of extremity Chronicity: acute Qualified Code(s): I82.401 - Acute embolism and thrombosis of unspecified deep veins of right lower extremity Code(s): I82.401 - Acute embolism and thrombosis of unspecified deep veins of right lower extremity Status: Acute Assessment and Plan: DVT noted last admission, on Eliquis. (6) History of 2019 novel coronavirus disease (COVID-19): Code(s): Z86.19 - Personal history of other infectious and parasitic diseases Status: Acute Assessment and Plan: Positive a few weeks ago. Now testing negative (7) Cardiomyopathy: Code(s): I42.9 - Cardiomyopathy, unspecified Status: Acute Assessment and Plan: Previously normal EF. Possibly related to COVID infection. Increased low-dose Toprol XL 25 mg p.o. daily. A titrate as able as well as initiate other standard heart failure regimen as BP and renal function will tolerate Subjective Date/time seen: 09/18/20 11:07 Interval history: Follow-up visit in this 75-year-old man with: Ischemic heart disease and echocardiographic evidence of significant decline in LV systolic function. Worsening of chronic kidney disease with placement of percutaneous dialysis catheter yesterday. Patient underwent 1st dialysis treatment last evening. Date of service 09/18/2020: He continues to be more clear. No chest pain or shortness of breath. Review of Systems Review of Systems: ROS unobtainable: Yes unobtainable due to mental status Constitutional: Constitutional: Reports fatigue and Reports weakness Eyes: Eyes: Reports no additional eye complaints ENT: Reports system reviewed and no additional complaints, except as documented and Denies lip swelling Cardiovascular: Cardiovascular: Reports no additional cardiovascular complaints Respiratory: Respiratory: Reports no additional respiratory complaints Genitourinary: Genitourinary: Reports no additional male genitourinary complaints M
--- NOTE | 2020-09-18 15:44 | PM.PNNEP ---
Progress Note: A&P Assessment and Plan (1) RENETTA (acute kidney injury): Code(s): N17.9 - Acute kidney failure, unspecified Status: Acute Assessment and Plan: Acute kidney injury. Renal ultrasound is negative Urine electrolytes are non pre renal. Urinalysis is bland but does show 2+ protein. Etiology probably ATN. had HD yesterday. reassess tomorow (uo. and labs) to see if he needs another tx tomorrow. (2) Acute encephalopathy: Code(s): G93.40 - Encephalopathy, unspecified Status: Acute Assessment and Plan: Improved with dialysis. (3) Hypernatremia: Code(s): E87.0 - Hyperosmolality and hypernatremia Status: Acute Assessment and Plan: Resolved (4) Sepsis: Qualifiers: Sepsis type: sepsis due to unspecified organism Sepsis acute organ dysfunction status: with acute organ dysfunction Severe sepsis acute organ dysfunction type: encephalopathy Severe sepsis shock status: without septic shock Qualified Code(s): A41.9 - Sepsis, unspecified organism; R65.20 - Severe sepsis without septic shock; G93.40 - Encephalopathy, unspecified Code(s): A41.9 - Sepsis, unspecified organism Status: Acute Assessment and Plan: Blood cultures negative so far Pneumonia on chest x-ray Vancomycin on board (5) Transaminitis: Code(s): R74.01 - Elevation of levels of liver transaminase levels Status: Acute Assessment and Plan: suggest shock liver enzyme levels are better. CPK is okay. Subjective Date/time seen: 09/18/20 15:44 Interval history: Patient is alert. generally weak. Review of Systems Cardiovascular: Cardiovascular: Reports no additional cardiovascular complaints Respiratory: Respiratory: Reports no additional respiratory complaints Gastrointestinal: Gastrointestinal: Reports no additional gastrointestinal complaints Genitourinary: Genitourinary: Reports no additional male genitourinary complaints Exam Narrative: Exam Narrative: General: Elderly male laying in bed and in NAD Heart: normal S1 and S2; no rub or gallop Lungs: Fairly clear. Abdomen: soft, nontender, nondistended, positive bowel sounds Extremities: no cyanosis or clubbing; no edema Skin: No rash or sq nodules Objective Data Vital Signs Vital Signs: Vital Signs - 24 hr 09/17/20 16:00 09/17/20 18:00 09/17/20 19:52 Temperature 36.6 C 36.6 C Pulse Rate 103 H 104 H 99 Respiratory Rate 24 H 20 Blood Pressure 132/76 125/70 Pulse Oximetry 96 94 09/17/20 20:00 09/17/20 22:00 09/17/20 23:08 Temperature 36.6 C Pulse Rate 97 93 91 Respiratory Rate 20 18 Blood Pressure 122/68 Pulse Oximetry 95 97 09/18/20 00:00 09/18/20 02:00 09/18/20 04:00 Temperature 36.6 C Pulse Rate 88 85 92 Respiratory Rate 18 20 Blood Pressure 119/62 Pulse Oximetry 96 97 09/18/20 06:00 09/18/20 08:00 09/18/20 08:35 Temperature Pulse Rate 98 103 H 101 H Respiratory Rate Blood Pressure Pulse Oximetry 09/18/20 08:38 09/18/20 10:00 09/18/20 12:00 Temperature 36.5 C Pulse Rate 101 H 106 H 104 H Respiratory Rate 24 H Blood Pressure 118/65 Pulse Oximetry 94 09/18/20 12:50 09/18/20 14:00 Temperature 36.2 C L Pulse Rate 102 H 97 Respiratory Rate 24 H Blood Pressure 133/71 Pulse Oximetry 97 Intake/Output Intake/Output: Intake & Output 09/15/20 09/16/20 09/17/20 09/18/20 23:59 23:59 23:59 23:59 Intake Total 1680 220 620 590 Output Total 1731 326 8242 150 Balance 455 -2 -9372 440 Meds/Results Medications: Active Medications Generic Name Dose Route Start Last Admin Trade Name Freq PRN Reason Stop Dose Admin Acetaminophen 650 mg 09/17/20 19:56 Acetaminophen 325 Mg Tablet PO Q4H PRN Mild Pain (1-3) Or Fever Aspirin 81 mg 09/18/20 08:00 09/18/20 08:36 Aspirin 81 Mg Chewable Tablet PO 81 mg DAILY@0800 [facility] Administration Hepar
--- NOTE | 2020-09-18 17:16 | PM.IMPN ---
Progress Note: A&P Assessment and Plan (1) Paroxysmal atrial fibrillation: Code(s): I48.0 - Paroxysmal atrial fibrillation Status: Acute Assessment and Plan: Patient has developed intermittent AFib. Probably related to the cardiomyopathy but had recent DVT over a month ago so could be related to PE but felt less likely given no hypoxia or chest pain. Metoprolol started. Continue Heparin. Add back Eliquis once it is determined if he will need a tunneled catheter. (2) Acute encephalopathy: Code(s): G93.40 - Encephalopathy, unspecified Status: Acute Assessment and Plan: Patient with acute encephalopathy related to the RENETTA and uremia. Patient is confused at baseline. He had a CT brain on admission showing no acute findings. He had a recent MRI brain last admission also showing no acute findings. Encephalopathy symptoms improving since resolution of the hypernatremia and with HD. Patient probably at baseline. (3) NSTEMI (non-ST elevated myocardial infarction): Code(s): I21.4 - Non-ST elevation (NSTEMI) myocardial infarction Status: Acute Assessment and Plan: Troponin 5.9 on admission and have been trending down. EKG showing no acute findings. Continue ASA and change to oral route. Echo showing EF 20% and grade I diastolic dysfunction but no mention of wall motion abnormalities. Cardiology feels no VT.. Toprol added. Hold on BRAD inhibitors until decided if patient will be chronic HD. Add back Lipitor when LFTs better. (4) Cardiomyopathy: Code(s): I42.9 - Cardiomyopathy, unspecified Status: Acute Assessment and Plan: Echo 09/14 showing LV chamber dimension moderately enlarged with severely reduced systolic function (EF 20-25%). Grade I diastolic dysfunction present as well. No old Echo but informed the EF is depressed chronically but not to this extent. Could be related to the renal failure . As above. (5) Sepsis: Qualifiers: Sepsis type: sepsis due to unspecified organism Sepsis acute organ dysfunction status: with acute organ dysfunction Severe sepsis acute organ dysfunction type: encephalopathy Severe sepsis shock status: without septic shock Qualified Code(s): A41.9 - Sepsis, unspecified organism; R65.20 - Severe sepsis without septic shock; G93.40 - Encephalopathy, unspecified Code(s): A41.9 - Sepsis, unspecified organism Status: Acute Assessment and Plan: Pt present on admission with leukocytosis, tachycardia, tachypnea and RENETTA. BCx NGTD. UA not consistent with UTI. CXR 09/15 showing improvement. Consider MRSA PNA given that he was treated with Cefepime for 7 days prior to last discharge. Consider findings related to severe dehydration. Vanco started 09/13/20. (6) Acute respiratory failure with hypoxia: Code(s): J96.01 - Acute respiratory failure with hypoxia Status: Acute Assessment and Plan: Patient was on room air at last discharge on 09/08/20. ABG here showing 7.42/34/64 on RA. CXR 09/12 showing improving bilateral airspace disease. Vancomycin started for possible PNA. COVID negative. CXR 09/15 showing improvement. Remains on room air now. (7) RENETTA (acute kidney injury): Code(s): N17.9 - Acute kidney failure, unspecified Status: Acute Assessment and Plan: BUN 78 and Cr 5.2 on admission. [place] related to dehydration. IV fluids started and levels worsened to 102 and 7.8 respectfully on 09/15. Bicarb down but potassium normal. UOP still poor. Renal US normal. Honorio placed 09/15 and patient underwent HD. He tolerated this well. Nephrology following and appreciate their input. (8) Leukocytosis: Qualifiers: Leukocytosis type: unspecified Qualified Code(s): D72.829 - Elevated white blood cell count, unspecified Code(s): D72.829 - Elevated white blood cell count, unspecified Status: Acute Assessment and Pl
[2020-09-18 17:17] LABS: Partial Thromboplastin Time 89.3 SECONDS (22.3-36.8)
[2020-09-18] MEDS: rOPINIRole HCL 1 MG TABLET 2 MG PO (20:10)
[2020-09-18] MEDS: HEPARIN SOD/D5W 100 UNITS/ML 25,000 UNITS/250 ML BAG 15 UNITS IV CONT (20:10)
[2020-09-19] VITALS (28 sets, daily range): BP systolic 83–143; BP diastolic 41–79; PULSE 77–112; RESP 18–24; TEMP 36.6–37.5; O2SAT 94–98
[2020-09-19 00:07] LABS: Partial Thromboplastin Time 71.8 SECONDS (22.3-36.8)
[2020-09-19] MEDS: CENTRAL LINE FLUSH 10 ML IV PUSH (05:18)
[2020-09-19 05:36] LABS: Basophils Absolute Auto 0.1 K/mm3 (0.0-0.1); Basophils Percent Auto 0.4 % (0.2-1.2); Eosinophils Absolute Auto 0.8 K/mm3 (0-0.3); Eosinophils Percent Auto 5.8 % (0-4.4); Hemoglobin 8.1 g/dL (14.0-18.0); Immature Granulocyte Absolute 0.08 K/mm3 (0.00-0.031); Immature Granulocyte Percent A 0.6 % (0-0.5); Lymphocytes Absolute Auto 1.31 K/mm3 (0.9-3.2); Lymphocytes Percent Auto 9.6 % (18.3-44.2); Mean Corpuscular HGB Conc 32.4 g/dl (32-36); Mean Corpuscular Hemoglobin 30.1 pg (26-34); Mean Corpuscular Volume 92.9 fl (80-100); Mean Platelet Volume 10.5 fl (7.4-10.4); Monocytes Absolute Auto 1.3 K/mm3 (0.1-0.6); Monocytes Percent Auto 9.4 % (2.6-8.5); Neutrophils Absolute Auto 10.2 K/mm3 (1.3-6.7); Neutrophils Percent Auto 74.2 % (45.5-73.1); Platelet Count Result 310 k/mm3 (150-375); Red Blood Count 2.69 M/mm3 (4.6-6.20); Red Cell Distribution Width 14.2 % (11.5-14.5); White Blood Count 13.7 K/mm3 (4.5-10.0)
[2020-09-19 05:55] LABS: Albumin Level 3.1 g/dL (3.5-5.1); Anion Gap 11 mmol/L (8-16); Blood Urea Nitrogen 66 mg/dL (9-20); Calcium 8.3 mg/dL (8.4-10.2); Carbon Dioxide 31 mmol/L (22-30); Chloride 92 mmol/L (98-107); Estimated CRCL calculation 9 ml/min; Estimated Glomerular Filt Rate 9; Glucose 116 mg/dL (75-110); Potassium 4.1 mmol/L (3.4-5.0); Sodium 134 mmol/L (137-145)
[2020-09-19] MEDS: ASPIRIN 81 MG CHEWABLE TABLET PO (09:54)
[2020-09-19] MEDS: METOPROLOL SUCCINATE EXT REL 25 MG TABCR PO (09:55)
--- NOTE | 2020-09-19 10:05 | PM.PNCARD ---
Progress Note: A&P Assessment and Plan (1) Elevated troponin: Code(s): R77.8 - Other specified abnormalities of plasma proteins Status: Acute Assessment and Plan: Elevated troponins though flat, probably not related to an acute coronary event since there was no chest pain or EKG changes. May have (COVID?) myocarditis, or poor clearing of troponins because of chronic CAD and acute renal failure. Will treat conservatively. Continue aspirin. No statin at this time because of elevated liver enzymes. (2) CAD (coronary artery disease): Code(s): I25.10 - Atherosclerotic heart disease of [place] coronary artery without angina pectoris Status: Acute Assessment and Plan: History of CAD and stents in 2010, normal LV function in the past but recent significant decline. (3) Acute renal failure (ARF): Code(s): N17.9 - Acute kidney failure, unspecified Status: Acute Assessment and Plan: Acute renal failure probably related to dehydration and sepsis: Urine output seems to be improving (4) Sepsis: Qualifiers: Sepsis type: sepsis due to unspecified organism Sepsis acute organ dysfunction status: with acute organ dysfunction Severe sepsis acute organ dysfunction type: encephalopathy Severe sepsis shock status: without septic shock Qualified Code(s): A41.9 - Sepsis, unspecified organism; R65.20 - Severe sepsis without septic shock; G93.40 - Encephalopathy, unspecified Code(s): A41.9 - Sepsis, unspecified organism Status: Acute Assessment and Plan: (5) Right leg DVT: Qualifiers: Affected thrombotic vein of extremity: unspecified vein of extremity Chronicity: acute Qualified Code(s): I82.401 - Acute embolism and thrombosis of unspecified deep veins of right lower extremity Code(s): I82.401 - Acute embolism and thrombosis of unspecified deep veins of right lower extremity Status: Acute Assessment and Plan: DVT noted last admission, on Eliquis. (6) History of 2019 novel coronavirus disease (COVID-19): Code(s): Z86.19 - Personal history of other infectious and parasitic diseases Status: Acute Assessment and Plan: Positive a few weeks ago. Now testing negative (7) Cardiomyopathy: Code(s): I42.9 - Cardiomyopathy, unspecified Status: Acute Assessment and Plan: Previously normal EF. Possibly related to COVID infection. continue Toprol XL 25 mg p.o. daily. uptitrate as able as well as initiate other standard heart failure regimen as BP and renal function will tolerate Subjective Date/time seen: 09/19/20 10:05 Interval history: Follow-up visit in this 75-year-old man with: Ischemic heart disease and echocardiographic evidence of significant decline in LV systolic function. Worsening of chronic kidney disease with placement of percutaneous dialysis catheter yesterday. Patient underwent 1st dialysis treatment last evening. Date of service 09/19/2020: more awake and alert. Feeling better. No chest pain or shortness of breath Review of Systems Review of Systems: ROS unobtainable: Yes unobtainable due to mental status Constitutional: Constitutional: Reports fatigue and Reports weakness Eyes: Eyes: Reports no additional eye complaints ENT: Reports system reviewed and no additional complaints, except as documented and Denies lip swelling Cardiovascular: Cardiovascular: Reports no additional cardiovascular complaints Respiratory: Respiratory: Reports no additional respiratory complaints Genitourinary: Genitourinary: Reports no additional male genitourinary complaints Musculoskeletal: Musculoskeletal: Reports joint swelling (Left knee) Integumentary/Breasts: Skin/Breast: Reports system reviewed and no additional complaints, except as do
[2020-09-19] MEDS: SOD HYPOCHLORITE 1/4 STRENGTH 473 ML 1 APPLIC TOPICAL ×2 (11:22→21:15)
[2020-09-19] MEDS: HEPARIN SOD/D5W 100 UNITS/ML 25,000 UNITS/250 ML BAG 15 UNITS IV CONT (12:53)
--- NOTE | 2020-09-19 13:42 | PC.NURSE ---
Patient to dialysis at this time
--- NOTE | 2020-09-19 15:19 | PM.IMPN ---
Progress Note: A&P Assessment and Plan (1) Paroxysmal atrial fibrillation: Code(s): I48.0 - Paroxysmal atrial fibrillation Status: Acute Assessment and Plan: Patient has developed intermittent AFib. Probably related to the cardiomyopathy but had recent DVT over a month ago so could be related to PE but felt less likely given no hypoxia or chest pain and anticoagulated Metoprolol started. Continue Heparin. Add back Eliquis after tunnel cath placed. (2) Acute encephalopathy: Code(s): G93.40 - Encephalopathy, unspecified Status: Acute Assessment and Plan: Patient with acute encephalopathy related to the RENETTA and uremia. Patient is confused at baseline. He had a CT brain on admission showing no acute findings. He had a recent MRI brain last admission also showing no acute findings. Encephalopathy symptoms improving since resolution of the hypernatremia and with HD. Patient probably at baseline. (3) NSTEMI (non-ST elevated myocardial infarction): Code(s): I21.4 - Non-ST elevation (NSTEMI) myocardial infarction Status: Acute Assessment and Plan: Troponin 5.9 on admission and have been trending down. EKG showing no acute findings. Continue ASA and change to oral route. Echo showing EF 20% and grade I diastolic dysfunction but no mention of wall motion abnormalities. Cardiology feels no [place].. Toprol XL added. Hold on BRAD inhibitors until decided if patient will be chronic HD. Add back Lipitor when LFTs better. (4) Cardiomyopathy: Code(s): I42.9 - Cardiomyopathy, unspecified Status: Acute Assessment and Plan: Echo 09/14 showing LV chamber dimension moderately enlarged with severely reduced systolic function (EF 20-25%). Grade I diastolic dysfunction present as well. No old Echo but informed the EF is depressed chronically but not to this extent. Could be related to the renal failure . As above. (5) Sepsis: Qualifiers: Sepsis type: sepsis due to unspecified organism Sepsis acute organ dysfunction status: with acute organ dysfunction Severe sepsis acute organ dysfunction type: encephalopathy Severe sepsis shock status: without septic shock Qualified Code(s): A41.9 - Sepsis, unspecified organism; R65.20 - Severe sepsis without septic shock; G93.40 - Encephalopathy, unspecified Code(s): A41.9 - Sepsis, unspecified organism Status: Acute Assessment and Plan: Pt present on admission with leukocytosis, tachycardia, tachypnea and RENETTA. BCx NGTD. UA not consistent with UTI. CXR 09/15 showing improvement. Consider MRSA PNA given that he was treated with Cefepime for 7 days prior to last discharge. Consider findings related to severe dehydration. Vanco started 09/13/20.(day # 7) (6) Acute respiratory failure with hypoxia: Code(s): J96.01 - Acute respiratory failure with hypoxia Status: Acute Assessment and Plan: Patient was on room air at last discharge on 09/08/20. ABG here showing 7.42/34/64 on RA. CXR 09/12 showing improving bilateral airspace disease. Vancomycin started for possible PNA. COVID negative. CXR 09/15 showing improvement. Remains on room air now. (7) RENETTA (acute kidney injury): Code(s): N17.9 - Acute kidney failure, unspecified Status: Acute Assessment and Plan: BUN 78 and Cr 5.2 on admission. [place] related to dehydration. IV fluids started and levels worsened to 102 and 7.8 respectfully on 09/15. Bicarb down but potassium normal. UOP still poor. Renal US normal. Honorio placed 09/15 and patient underwent HD. He tolerated this well. Nephrology following and repeat dialysis today 09/19. (8) Leukocytosis: Qualifiers: Leukocytosis type: unspecified Qualified Code(s): D72.829 - Elevated white blood cell count, unspecified Code(s): D72.829 - Elevated white blood cell count, unspecified Status: Acute Assessment an
[2020-09-19] MEDS: EPOETIN ALFA-EPBX 10,000 UNITS/ML VIAL 10000 UNITS IV PUSH (15:24)
--- NOTE | 2020-09-19 16:35 | PM.PNNEP ---
Progress Note: A&P Assessment and Plan (1) RENETTA (acute kidney injury): Code(s): N17.9 - Acute kidney failure, unspecified Status: Acute Assessment and Plan: Acute kidney injury. Renal ultrasound is negative Urine electrolytes are non pre renal. Urinalysis is bland but does show 2+ protein. Etiology probably ATN. hemodialysis in progress now. (2) Acute encephalopathy: Code(s): G93.40 - Encephalopathy, unspecified Status: Acute Assessment and Plan: Improved with dialysis. (3) Hypernatremia: Code(s): E87.0 - Hyperosmolality and hypernatremia Status: Acute Assessment and Plan: Resolved (4) Sepsis: Qualifiers: Sepsis type: sepsis due to unspecified organism Sepsis acute organ dysfunction status: with acute organ dysfunction Severe sepsis acute organ dysfunction type: encephalopathy Severe sepsis shock status: without septic shock Qualified Code(s): A41.9 - Sepsis, unspecified organism; R65.20 - Severe sepsis without septic shock; G93.40 - Encephalopathy, unspecified Code(s): A41.9 - Sepsis, unspecified organism Status: Acute Assessment and Plan: Blood cultures negative so far Pneumonia on chest x-ray Vancomycin on board For knee infection (5) Transaminitis: Code(s): R74.01 - Elevation of levels of liver transaminase levels Status: Acute Assessment and Plan: suggest shock liver enzyme levels are better. CPK is okay. Subjective Date/time seen: 09/19/20 16:35 Interval history: Patient is awake. A nurse fed him breakfast. He does not interact very much. generally weak. On dialysis and tolerating it well. He was seen at 2:00 p.m. Review of Systems Review of Systems: ROS unobtainable: Yes unobtainable due to medical condition Exam Narrative: Exam Narrative: General: Elderly male laying in bed and in NAD Heart: normal S1 and S2; no rub or gallop Lungs: Fairly clear. Abdomen: soft, nontender, nondistended, positive bowel sounds Extremities: no cyanosis or clubbing; no edema Skin: No rash Objective Data Vital Signs Vital Signs: Vital Signs - 24 hr 09/18/20 18:00 09/18/20 19:42 09/18/20 20:00 Temperature 36.5 C Pulse Rate 98 92 92 Respiratory Rate 18 18 Blood Pressure 124/70 Pulse Oximetry 96 97 09/18/20 22:00 09/18/20 23:27 09/19/20 00:00 Temperature 36.6 C Pulse Rate 94 93 91 Respiratory Rate 20 18 Blood Pressure 134/68 Pulse Oximetry 99 98 09/19/20 02:00 09/19/20 04:00 09/19/20 06:00 Temperature 36.6 C Pulse Rate 90 85 93 Respiratory Rate 18 Blood Pressure 130/61 Pulse Oximetry 97 09/19/20 08:00 09/19/20 09:55 09/19/20 10:00 Temperature 36.6 C Pulse Rate 85 102 H 101 H Respiratory Rate 22 H Blood Pressure 108/75 Pulse Oximetry 95 09/19/20 12:00 09/19/20 13:42 09/19/20 13:56 Temperature 36.8 C 36.7 C Pulse Rate 104 H 101 H 98 Respiratory Rate 22 H 24 H Blood Pressure 124/70 143/76 H 120/64 Pulse Oximetry 96 09/19/20 14:00 09/19/20 14:15 09/19/20 14:30 Temperature Pulse Rate 101 H 102 H 100 Respiratory Rate Blood Pressure 124/67 124/67 87/41 L Pulse Oximetry 09/19/20 14:40 09/19/20 14:45 09/19/20 15:00 Temperature Pulse Rate 100 99 95 Respiratory Rate Blood Pressure 93/45 L 115/67 126/68 Pulse Oximetry 09/19/20 15:15 09/19/20 15:30 09/19/20 15:45 Temperature Pulse Rate 98 104 H 107 H Respiratory Rate Blood Pressure 113/66 126/65 125/66 Pulse Oximetry 09/19/20 16:00 09/19/20 16:15 Temperature Pulse Rate 106 H 109 H Respiratory Rate Blood Pressure 130/75 131/72 Pulse Oximetry Intake/Output Intake/Output: Intake & Output 09/16/20 09/17/20 09/18/20 09/19/20 23:59 23:59 23:59 23:59 Intake Total 634 784 9812 710 Output Total 225 1900 425 350 [facility] [phone] Meds/Results Medications: Active Medic
[2020-09-19 16:59] LABS: Chloride Rand Ur 48 mmol/L (32-290); Chloride/Creatinine Rand Ur 53 (23-275); Creatinine Random Urine 91 mg/dL (20-320)
--- NOTE | 2020-09-19 17:38 | PC.NURSE ---
This patient, Saad Yarbrough[facility] at 1725. Personal belongings sent with patient. Report given to [Vanesa ]. Appropriate documentation sent with patient.
--- NOTE | 2020-09-19 17:41 | PC.NURSE ---
Patient received from IMU room 202. Patient was in dialysis and returned via bed at this time. Admission assessment is being done at this time.
[2020-09-19] MEDS: HEPARIN SODIUM 1,000 UNITS/ML VIAL 1000 UNITS IV PUSH (18:04)
--- NOTE | 2020-09-19 18:20 | WPDANESEPP ---
Anes - Eval Pre Procedure Procedure: Operation Date: 09/20/20 15:30 Proposed Procedures p Placement Of Tunnel Dialysis Catheter - Sherry Higuera MD Date/Time: 09/19/20 18:20 Pre Op Diagnosis: Acute renal failure, acute encephalopathy, sepsis Patient Data Age: 75 Gender: M Height: 5 ft 10 in Weight: 92 kg Last Vital Signs Temp 97.8 F 09/19/20 17:15 Pulse 103 H 09/19/20 17:15 Resp 24 H 09/19/20 17:15 BP 137/73 09/19/20 17:15 Pulse Ox 96 09/19/20 12:00 Allergies Allergy/AdvReac Type Severity Reaction Status Date / Time No Known Allergies Allergy Unknown Verified 09/19/20 17:48 Home Medications Medication Instructions Recorded Confirmed Type atorvastatin 40 mg PO DAILY 08/12/20 09/13/20 History metoprolol succinate 25 mg PO DAILY 08/12/20 09/13/20 History primidone 500 mg PO QID 08/12/20 09/13/20 History ropinirole 4 mg PO HS 08/12/20 09/13/20 History Eliquis 5 mg PO BID #74 tablet 08/14/20 09/13/20 Rx acetaminophen [Mapap 650 mg PO Q4H PRN #30 tablet 09/08/20 09/13/20 Rx (acetaminophen)] Laboratory Tests 09/13/20 09/18/20 09/19/20 21:56 23:48 05:19 WBC RBC Hgb Hct MCV MCH MCHC RDW Plt Count MPV Immature Gran % (Auto) Neut % (Auto) Lymph % (Auto) [place] % (Auto) Eos % (Auto) Baso % (Auto) Lymph # (Auto) [place] # (Auto) Eos # (Auto) Baso # (Auto) Abs Immat Gran (auto) Absolute Neuts (auto) Absolute Nucleated RBC Nucleated RBC % APTT 71.8 SECONDS H SECONDS (22.3-36.8) Sodium 134 mmol/L L mmol/L (137-145) Potassium 4.1 mmol/L mmol/L (3.4-5.0) Chloride 92 mmol/L L mmol/L (98-107) Carbon Dioxide 31 mmol/L H mmol/L (22-30) Anion Gap 11 mmol/L mmol/L (8-16) BUN 66 mg/dL H D mg/dL (9-20) Creatinine 6.40 mg/dL H mg/dL (0.7-1.3) Estim Creat Clear Calc 9 ml/min ml/min Estimated GFR 9 L (59 - ) Glucose 116 mg/dL H mg/dL (75-110) Calcium 8.3 mg/dL L mg/dL (8.4-10.2) Phosphorus 9.0 mg/dL H mg/dL (2.5-4.5) Albumin 3.1 g/dL L g/dL (3.5-5.1) Ur Random Creatinine 91 mg/dL mg/dL (20-320) Ur Random Chloride 48 mmol/L mmol/L (32-290) U Random Chloride/Creat 53 (23-275) 09/19/20 09/19/20 05:19 05:19 WBC 13.7 K/mm3 H K/mm3 (4.5-10.0) RBC 2.69 M/mm3 L M/mm3 (4.6-6.20) Hgb 8.1 g/dL L g/dL (14.0-18.0) Hct 25.0 % L % (42.0-52.0) MCV 92.9 fl fl (80-100) MCH 30.1 pg pg (26-34) MCHC 32.4 g/dl g/dl (32-36) RDW 14.2 % % (11.5-14.5) Plt Count 310 k/mm3 k/mm3 (150-375) MPV 10.5 fl H fl (7.4-10.4) Immature Gran % (Auto) 0.6 % H % (0-0.5) Neut % (Auto) 74.2 % H % (45.5-73.1) Lymph % (Auto) 9.6 % L % (18.3-44.2) [place] % (Auto) 9.4 % H % (2.6-8.5) Eos % (Auto) 5.8 % H % (0-4.4) Baso % (Auto) 0.4 % % (0.2-1.2) Lymph # (Auto) 1.31 K/mm3 K/mm3 (0.9-3.2) [place] # (Auto) 1.3 K/mm3 H K/mm3 (0.1-0.6) Eos # (Auto) 0.8 K/mm3 H K/mm3 (0-0.3) Baso # (Auto) 0.1 K/mm3 K/mm3 (0.0-0.1) Abs Immat Gran (auto) 0.08 K/mm3 H K/mm3 (0.00-0.031) Absolute Neuts (auto) 10.2 K/mm3 H K/mm3 (1.3-6.7) Absolute Nucleated RBC 0.0 K/mm3 K/mm3 (0.0-0.012) Nucleated RBC % 0.0 % % (0.0-0.2) APTT 73.0 SECONDS H SECONDS (22.3-36.8) Sodium Potassium Chloride Carbon Dioxide Anion Gap BUN Creatinine Estim Creat Clear Calc Estimated GFR Glucose Ca
[2020-09-19] MEDS: rOPINIRole HCL 1 MG TABLET 2 MG PO (21:16)
[2020-09-20] VITALS (11 sets, daily range): BP systolic 101–139; BP diastolic 53–83; PULSE 86–96; RESP 17–24; TEMP 36.2–37.4; O2SAT 92–96; BMI 10.0
[2020-09-20] MEDS: CENTRAL LINE FLUSH 20 ML IV PUSH ×2 (06:00→12:17)
[2020-09-20] MEDS: HEPARIN SOD/D5W 100 UNITS/ML 25,000 UNITS/250 ML BAG 15 UNITS IV CONT (06:07)
[2020-09-20 06:16] LABS: Partial Thromboplastin Time 62.8 SECONDS (22.3-36.8)
[2020-09-20] MEDS: HEPARIN SODIUM 5,000 UNITS/ML VIAL 3000 UNITS IV PUSH (06:32)
[2020-09-20] MEDS: CENTRAL LINE FLUSH 10 ML IV PUSH ×2 (06:36→12:17)
[2020-09-20 07:15] LABS: Vancomycin Random 14.8 ug/mL (10-20)
[2020-09-20 08:00] LABS: Estimated CRCL calculation 13 ml/min; Estimated Glomerular Filt Rate 11
--- NOTE | 2020-09-20 09:33 | PC.NURSE ---
Have made multiple attempts to reach the pharmacy to have the patient's medications sent up. No medications for this patient are in his drawer, or pharmacy drawer maker med room. I also called IMU since he was a transfer last night and they have no medications for him as well. I will continue to try for the pharmacy. The tube system was down so that may have some delays.
--- NOTE | 2020-09-20 09:54 | PC.NURSE ---
Phone call to Dr. Higuera to ask when he would like the heparin drip stopped for the patient before his procedure today. Message has been left. Waiting for a call back.
[2020-09-20] MEDS: SOD HYPOCHLORITE 1/4 STRENGTH 473 ML 1 APPLIC TOPICAL ×2 (09:59→20:14)
[2020-09-20] MEDS: METOPROLOL SUCCINATE EXT REL 25 MG TABCR PO (11:04)
[2020-09-20] MEDS: ASPIRIN 81 MG CHEWABLE TABLET PO (11:05)
--- NOTE | 2020-09-20 11:35 | PCNFU ---
Nutrition Follow-Up Complete: Inadequate oral intake related to diet order as evidenced by NPO status. Goal:Patient to meet estimated nutritional needs. Limited progress towards goal. We will continue current goal. Pt current nutrition is Renal Dialysis/Soft and Bite sized, Level 6. Nutrition recommendation:Agree Last recorded weight is 96 kg. Bowel Motility:+BM reported 09/16 Labs Reviewed:Cr 5.0,BUN 66,GFR 11,Na 134,Alb 3.1 Meds Noted:Heparin,Toprol Additional Notes: Spoke with nursing in regards to nutrition follow up. Patient is NPO for tunneled catheter today. Patient is a feeder, eating 0-50% of meals provided. Diet supplements: Nepro BID providing an additional 425 kcals and 19 gms protein. Agree with diet orders. Monitoring: Follow up every 5 days.
[2020-09-20 12:32] LABS: Partial Thromboplastin Time 59.5 SECONDS (22.3-36.8)
--- NOTE | 2020-09-20 13:32 | PC.NURSE ---
Patient to surgery via bed. Chart and consent sent with patient.
--- NOTE | 2020-09-20 13:43 | WPDHPUPDATE1 ---
History and Physical Update Update Date/Time: 09/20/20 13:43 History and Physical has been reviewed, including an updated exam of the patient. There are NO changes in the patient's condition. Risks, benefits, and alternatives have been discussed and questions answered. Patient agrees to proceed with procedure.
--- NOTE | 2020-09-20 14:30 | PM.IMPN ---
Progress Note: A&P Assessment and Plan (1) Paroxysmal atrial fibrillation: Code(s): I48.0 - Paroxysmal atrial fibrillation Status: Acute Assessment and Plan: Patient has developed intermittent AFib. Probably related to the cardiomyopathy but had recent DVT over a month ago so could be related to PE but felt less likely given no hypoxia or chest pain and anticoagulated Metoprolol started. Continue Heparin. Add back Eliquis after tunnel cath placed. (2) Acute encephalopathy: Code(s): G93.40 - Encephalopathy, unspecified Status: Acute Assessment and Plan: Patient with acute encephalopathy related to the RENETTA and uremia. Patient is confused at baseline. He had a CT brain on admission showing no acute findings. He had a recent MRI brain last admission also showing no acute findings. Encephalopathy symptoms improving since resolution of the hypernatremia and with HD. Patient probably at baseline. (3) NSTEMI (non-ST elevated myocardial infarction): Code(s): I21.4 - Non-ST elevation (NSTEMI) myocardial infarction Status: Acute Assessment and Plan: Troponin 5.9 on admission and have been trending down. EKG showing no acute findings. Continue ASA and change to oral route. Echo showing EF 20% and grade I diastolic dysfunction but no mention of wall motion abnormalities. Cardiology feels no [place].. Toprol XL added. Hold on BRAD inhibitors until decided if patient will be chronic HD. Add back Lipitor when LFTs better. (4) Cardiomyopathy: Code(s): I42.9 - Cardiomyopathy, unspecified Status: Acute Assessment and Plan: Echo 09/14 showing LV chamber dimension moderately enlarged with severely reduced systolic function (EF 20-25%). Grade I diastolic dysfunction present as well. No old Echo but informed the EF is depressed chronically but not to this extent. Could be related to the renal failure . As above. (5) Sepsis: Qualifiers: Sepsis acute organ dysfunction status: with acute organ dysfunction Sepsis type: sepsis due to unspecified organism Severe sepsis acute organ dysfunction type: encephalopathy Severe sepsis shock status: without septic shock Qualified Code(s): A41.9 - Sepsis, unspecified organism; R65.20 - Severe sepsis without septic shock; G93.40 - Encephalopathy, unspecified Code(s): A41.9 - Sepsis, unspecified organism Status: Acute Assessment and Plan: Pt present on admission with leukocytosis, tachycardia, tachypnea and RENETTA. BCx NGTD. UA not consistent with UTI. CXR 09/15 showing improvement. Consider MRSA PNA given that he was treated with Cefepime for 7 days prior to last discharge. Consider findings related to severe dehydration. Vanco started 09/13/20.(day # 8) and plan on d/c 09/21 after placement of tunnel cath today (6) Acute respiratory failure with hypoxia: Code(s): J96.01 - Acute respiratory failure with hypoxia Status: Acute Assessment and Plan: Patient was on room air at last discharge on 09/08/20. ABG here showing 7.42/34/64 on RA. CXR 09/12 showing improving bilateral airspace disease. Vancomycin started for possible PNA. COVID negative. CXR 09/15 showing improvement. Remains on room air now. (7) RENETTA (acute kidney injury): Code(s): N17.9 - Acute kidney failure, unspecified Status: Acute Assessment and Plan: BUN 78 and Cr 5.2 on admission. [place] related to dehydration. IV fluids started and levels worsened to 102 and 7.8 respectfully on 09/15. Bicarb down but potassium normal. UOP still poor. Renal US normal. Honorio placed 09/15 and patient underwent HD. He tolerated this well. Nephrology following and repeat dialysis 09/19. Tunnel cath to be placed today (8) Leukocytosis: Qualifiers: Leukocytosis type: unspecified Qualified Code(s): D72.829 - Elevated white blood cell count, unspecified Code(s): D72.829 - E
--- NOTE | 2020-09-20 14:53 | P.PNAN_ITS ---
Anes - Eval Final PreProcedure Day of Procedure 09/20/20 14:53 Patient weight: obese Heart: regular rate and rhythm Lungs: clear to auscultation Airway: Mallampati scale class II Neurological: alert and oriented Last oral intake: >/= 8 hours ASA classification: IV Emergent: no Anesthetic plan: proceed Anesthesia type and monitoring: general GIVS and standard monitoring Informed Consent: The patient's anesthetic plan and its attendant risks and be nefits were discussed with the patient/family/POA. Questions were solicited and answers provided to the satisfaction of the patient/family/POA.
[2020-09-20] MEDS: SODIUM CHLORIDE 0.9% IV 500 ML 30 ML IV CONT (15:53)
[2020-09-20] MEDS: HEPARIN SODIUM, PORCINE 10,000 UNITS/10 ML VIAL 4000 UNITS IRRIGATION (16:36)
[2020-09-20] MEDS: LIDO 1%/EPINEPHRINE 1:100,000 20 ML VIAL 10 ML INFILTRATE (16:37)
--- NOTE | 2020-09-20 16:54 | PM.PROC ---
Procedure Note - Detailed Date of procedure: 09/20/20 Pre-op diagnosis: Acute renal failure, acute encephalopathy, sepsis end stage renal disease Post-op diagnosis: same Procedure performed: placement of RIJ tunneled HD catheter 28 cm under fluroscopic guidance Description of procedure: Patient was taken to the operating room and placed in the supine position. After adequate induction of laryngeal mask anesthesia, the patient was prepped and draped in normal sterile fashion. A time-out was then done to verify the patient's identity as well as the procedure being performed. Access into the right internal jugular vein was gained by placing a guidewire into the previously placed temporary HD catheter. Placement of the guidewire was confirmed by fluoroscopy. I then went ahead and measured the 28 cm tunneled dialysis catheter to the insertion site in the right neck. I then localized the tract going from the right chest to the right neck. I then made a small incision in the right chest and tunneled the catheter to the right neck. I then serially dilated the right internal jugular vein under fluoroscopic guidance. Once adequately dilated, I placed dilating sheath over the guidewire into the right internal jugular vein under fluoroscopic visualization. Once this was noted to be in good position, I removed both the guidewire and dilator, now just leaving the sheath in the vein. I then went ahead and fed the previously tunneled catheter into the sheath. Once the catheter was fed and positioned correctly, I went ahead and peeled the sheath away. Final fluoroscopic view showed the catheter in good position from its insertion point in the right chest to its termination near the right atrial caval junction. It was noted that there was no kinking of the catheter. I was able to easily draw and flush from both ports of the catheter. I placed 2.2 and 2.3 cc of final heparin flush into each port as marked. The catheter was then sutured into place and the incision in the neck was closed with 4 O Monocryl subcuticular suture. The patient tolerated the procedure well and will be transferred to the recovery room in stable condition. Sterile dressing was placed on the catheter. Portable chest x-ray will be done in the recovery. Implants: 28 cm duraflow tunneled HD cath Anesthesia: GLMA Surgeon: Sherry Higuera MD Estimated blood loss (mL): 5 Drains: No Packing: No Pathology: none sent Complications: No immediate complications Condition: stable Disposition: PACU Findings: 28 cm duraflow in RIJ
--- NOTE | 2020-09-20 17:35 | SUR.PHASEI ---
1542 SBAR FAXED FLOOR NOTIFIED
--- NOTE | 2020-09-20 18:20 | PC.NURSE ---
Patient returned from post-op via bed. Patient assessment done and post-op vitals have been started.
[2020-09-20 19:36] LABS: Partial Thromboplastin Time 33.7 SECONDS (22.3-36.8)
[2020-09-20] MEDS: HEPARIN SOD/D5W 100 UNITS/ML 25,000 UNITS/250 ML BAG 20 UNITS IV CONT (20:03)
[2020-09-20] MEDS: HEPARIN SODIUM 5,000 UNITS/ML VIAL 6500 UNITS IV PUSH (20:04)
[2020-09-20] MEDS: rOPINIRole HCL 1 MG TABLET 2 MG PO (20:14)
[2020-09-20 20:40] LABS: Hepatitis B Core Ab Total Nonreactive (Nonreactive)
[2020-09-21] VITALS (23 sets, daily range): BP systolic 84–142; BP diastolic 41–74; PULSE 69–997; RESP 18–30; TEMP 36.6–38.8; O2SAT 95–97
[2020-09-21 02:06] LABS: Partial Thromboplastin Time 110.5 SECONDS (22.3-36.8)
[2020-09-21] MEDS: HEPARIN SOD/D5W 100 UNITS/ML 25,000 UNITS/250 ML BAG 18 UNITS IV CONT (04:13)
[2020-09-21] MEDS: ASPIRIN 81 MG CHEWABLE TABLET PO (08:08)
[2020-09-21] MEDS: SOD HYPOCHLORITE 1/4 STRENGTH 473 ML 1 APPLIC TOPICAL ×2 (08:08→20:30)
[2020-09-21] MEDS: APIXABAN 5 MG TABLET PO ×2 (08:11→20:31)
[2020-09-21] MEDS: METOPROLOL SUCCINATE EXT REL 25 MG TABCR PO (08:13)
[2020-09-21 08:31] LABS: Basophils Absolute Auto 0.1 K/mm3 (0.0-0.1); Basophils Percent Auto 0.5 % (0.2-1.2); Eosinophils Absolute Auto 0.6 K/mm3 (0-0.3); Eosinophils Percent Auto 3.6 % (0-4.4); Hematocrit 24.4 % (42.0-52.0); Hemoglobin 7.9 g/dL (14.0-18.0); Immature Granulocyte Absolute 0.15 K/mm3 (0.00-0.031); Lymphocytes Percent Auto 8.3 % (18.3-44.2); Mean Corpuscular HGB Conc 32.4 g/dl (32-36); Mean Corpuscular Hemoglobin 29.9 pg (26-34); Mean Corpuscular Volume 92.4 fl (80-100); Mean Platelet Volume 10.1 fl (7.4-10.4); Monocytes Absolute Auto 1.5 K/mm3 (0.1-0.6); Monocytes Percent Auto 9.4 % (2.6-8.5); Neutrophils Absolute Auto 12.1 K/mm3 (1.3-6.7); Neutrophils Percent Auto 77.2 % (45.5-73.1); Platelet Count Result 296 k/mm3 (150-375); Red Blood Count 2.64 M/mm3 (4.6-6.20); Red Cell Distribution Width 14.4 % (11.5-14.5); White Blood Count 15.7 K/mm3 (4.5-10.0)
[2020-09-21 08:42] LABS: Partial Thromboplastin Time 100.7 SECONDS (22.3-36.8)
[2020-09-21 08:46] LABS: Anion Gap 13 mmol/L (8-16); Blood Urea Nitrogen 63 mg/dL (9-20); Calcium 8.5 mg/dL (8.4-10.2); Carbon Dioxide 27 mmol/L (22-30); Chloride 94 mmol/L (98-107); Estimated CRCL calculation 11 ml/min; Estimated Glomerular Filt Rate 9; Glucose 134 mg/dL (75-110); Sodium 134 mmol/L (137-145)
--- NOTE | 2020-09-21 09:42 | WPDANESPN ---
Anes - Prog Note Post-Op Date/Time: 09/21/20 09:42 Cardiovascular status: normal Respiratory status: normal Airway patency: baseline Mental status: baseline Post-Op hydration status: normal Vital Signs: Last Vital Signs Temp 37.2 C 09/20/20 19:04 Pulse 93 09/21/20 08:13 Resp 18 09/20/20 19:04 BP 132/74 09/20/20 19:04 Pulse Ox 94 09/20/20 19:04 Pain Score (VAS): WARREN, AMS I/O: Intake & Output 09/20/20 09/21/20 09/21/20 23:59 07:59 15:59 Intake Total 250 250 360 Output Total 275 350 Balance -25 -100 360 Laboratory Tests 09/21/20 08:16 09/21/20 08:16 09/15/20 09/20/20 09/20/20 10:03 12:16 19:11 WBC RBC Hgb Hct MCV MCH MCHC RDW Plt Count MPV Immature Gran % (Auto) Neut % (Auto) Lymph % (Auto) [place] % (Auto) Eos % (Auto) Baso % (Auto) Lymph # (Auto) [place] # (Auto) Eos # (Auto) Baso # (Auto) Abs Immat Gran (auto) Absolute Neuts (auto) Absolute Nucleated RBC Nucleated RBC % APTT 59.5 H 33.7 Sodium Potassium Chloride Carbon Dioxide Anion Gap BUN Creatinine Estim Creat Clear Calc Estimated GFR Glucose Calcium Hep B Core Total Ab Nonreactive 09/21/20 09/21/20 09/21/20 01:35 08:16 08:16 WBC 15.7 H RBC 2.64 L Hgb 7.9 L Hct 24.4 L MCV 92.4 MCH 29.9 MCHC 32.4 RDW 14.4 Plt Count 296 MPV 10.1 Immature Gran % (Auto) 1.0 H Neut % (Auto) 77.2 H Lymph % (Auto) 8.3 L Knox % (Auto) 9.4 H Eos % (Auto) 3.6 Baso % (Auto) 0.5 Lymph # (Auto) 1.30 Knox # (Auto) 1.5 H Eos # (Auto) 0.6 H Baso # (Auto) 0.1 Abs Immat Gran (auto) 0.15 H Absolute Neuts (auto) 12.1 H Absolute Nucleated RBC 0.0 Nucleated RBC % 0.0 APTT 110.5 H Sodium 134 L Potassium 4.0 Chloride 94 L Carbon Dioxide 27 Anion Gap 13 BUN 63 H Creatinine 6.30 H Estim Creat Clear Calc 11 Estimated GFR 9 L Glucose 134 H Calcium 8.5 Hep B Core Total Ab 09/21/20 08:16 WBC RBC Hgb Hct MCV MCH MCHC RDW Plt Count MPV Immature Gran % (Auto) Neut % (Auto) Lymph % (Auto) [place] % (Auto) Eos % (Auto) Baso % (Auto) Lymph # (Auto) [place] # (Auto) Eos # (Auto) Baso # (Auto) Abs Immat Gran (auto) Absolute Neuts (auto) Absolute Nucleated RBC Nucleated RBC % APTT 100.7 H Sodium Potassium Chloride Carbon Dioxide Anion Gap BUN Creatinine Estim Creat Clear Calc Estimated GFR Glucose Calcium Hep B Core Total Ab Post-procedural complaints: none Patient Feedback: Patient satisfied with anesthetic care.
--- NOTE | 2020-09-21 10:15 | PM.PNCARD ---
Progress Note: A&P Assessment and Plan (1) Elevated troponin: Code(s): R77.8 - Other specified abnormalities of plasma proteins Status: Acute Assessment and Plan: Elevated troponins though flat, probably not related to an acute coronary event since there was no chest pain or EKG changes. May have (COVID?) myocarditis, or poor clearing of troponins because of chronic CAD and acute renal failure. Will treat conservatively. Continue aspirin. No statin at this time because of elevated liver enzymes. (2) CAD (coronary artery disease): Code(s): I25.10 - Atherosclerotic heart disease of [place] coronary artery without angina pectoris Status: Acute Assessment and Plan: History of CAD and stents in 2010, normal LV function in the past but recent significant decline. (3) Acute renal failure (ARF): Code(s): N17.9 - Acute kidney failure, unspecified Status: Acute Assessment and Plan: Now on dialysis (4) Sepsis: Qualifiers: Sepsis type: sepsis due to unspecified organism Sepsis acute organ dysfunction status: with acute organ dysfunction Severe sepsis acute organ dysfunction type: encephalopathy Severe sepsis shock status: without septic shock Qualified Code(s): A41.9 - Sepsis, unspecified organism; R65.20 - Severe sepsis without septic shock; G93.40 - Encephalopathy, unspecified Code(s): A41.9 - Sepsis, unspecified organism Status: Acute Assessment and Plan: (5) Right leg DVT: Qualifiers: Affected thrombotic vein of extremity: unspecified vein of extremity Chronicity: acute Qualified Code(s): I82.401 - Acute embolism and thrombosis of unspecified deep veins of right lower extremity Code(s): I82.401 - Acute embolism and thrombosis of unspecified deep veins of right lower extremity Status: Acute Assessment and Plan: DVT noted last admission, on Eliquis. (6) History of 2019 novel coronavirus disease (COVID-19): Code(s): Z86.19 - Personal history of other infectious and parasitic diseases Status: Acute Assessment and Plan: Positive a few weeks ago. Now testing negative (7) Cardiomyopathy: Code(s): I42.9 - Cardiomyopathy, unspecified Status: Acute Assessment and Plan: Previously normal EF. Possibly related to COVID infection. continue Toprol XL 25 mg p.o. daily. uptitrate as able as well as initiate other standard heart failure regimen as BP and renal function will tolerate (8) Encephalopathy: Code(s): G93.40 - Encephalopathy, unspecified Status: Acute Assessment and Plan: will check an ammonia level Subjective Date/time seen: 09/21/20 10:15 Interval history: Follow-up visit in this 75-year-old man with: Ischemic heart disease and echocardiographic evidence of significant decline in LV systolic function. Worsening of chronic kidney disease with placement of percutaneous dialysis catheter yesterday. Patient underwent 1st dialysis treatment last evening. Date of service 09/21/2020: encephalopathic today.. No chest pain or shortness of breath Review of Systems Review of Systems: ROS unobtainable: Yes unobtainable due to mental status Constitutional: Constitutional: Reports fatigue and Reports weakness Eyes: Eyes: Reports no additional eye complaints ENT: Reports system reviewed and no additional complaints, except as documented and Denies lip swelling Cardiovascular: Cardiovascular: Reports no additional cardiovascular complaints Respiratory: Respiratory: Reports no additional respiratory complaints Genitourinary: Genitourinary: Reports no additional male genitourinary complaints Musculoskeletal: Musculoskeletal: Reports joint swelling (Left knee) Integumentary/Breasts: Skin/Breast: Repo
--- NOTE | 2020-09-21 10:27 | PM.PNNEP ---
Progress Note: A&P Assessment and Plan (1) RENETTA (acute kidney injury): Code(s): N17.9 - Acute kidney failure, unspecified Status: Acute Assessment and Plan: Acute kidney injury. Renal ultrasound is negative Urine electrolytes are non pre renal. Urinalysis is bland but does show 2+ protein. Etiology probably ATN. He had a PermCath placed. He is getting dialysis later this afternoon. (2) Acute encephalopathy: Code(s): G93.40 - Encephalopathy, unspecified Status: Acute Assessment and Plan: He is sleepy or today. unclear if he has underlying dementia. Electrolytes are okay. He is afebrile. (3) Hypernatremia: Code(s): E87.0 - Hyperosmolality and hypernatremia Status: Acute Assessment and Plan: Resolved (4) Sepsis: Qualifiers: Sepsis type: sepsis due to unspecified organism Sepsis acute organ dysfunction status: with acute organ dysfunction Severe sepsis acute organ dysfunction type: encephalopathy Severe sepsis shock status: without septic shock Qualified Code(s): A41.9 - Sepsis, unspecified organism; R65.20 - Severe sepsis without septic shock; G93.40 - Encephalopathy, unspecified Code(s): A41.9 - Sepsis, unspecified organism Status: Acute Assessment and Plan: Blood cultures negative so far Pneumonia on chest x-ray Vancomycin on board For knee infection White count still high. Unclear why. (5) Transaminitis: Code(s): R74.01 - Elevation of levels of liver transaminase levels Status: Acute Assessment and Plan: suggest shock liver enzyme levels are Gradually improving. Check ammonia level CPK is okay. Subjective Date/time seen: 09/21/20 10:27 Interval history: Patient Was sleeping when I walked in the room. Shaking his shoulder he will wake up and answer 1 question yes or no. Then he falls back asleep. A nurse fed him breakfast And he ate very well.. He does not interact very much. generally weak. Due for dialysis today. Review of Systems Review of Systems: ROS unobtainable: Yes unobtainable due to medical condition Exam Narrative: Exam Narrative: General: Elderly male laying in bed and in NAD Heart: normal S1 and S2; no rub or gallop Lungs: Fairly clear. Abdomen: soft, nontender, nondistended, positive bowel sounds Extremities: no cyanosis or clubbing; no edema Skin: No rash Objective Data Vital Signs Vital Signs: Vital Signs - 24 hr 09/20/20 10:37 09/20/20 11:04 09/20/20 14:00 Temperature 36.8 C 37.1 C Pulse Rate 96 96 96 Respiratory Rate 18 18 Blood Pressure 127/70 132/68 Pulse Oximetry 92 95 09/20/20 17:00 09/20/20 17:15 09/20/20 17:30 Temperature 36.2 C L Pulse Rate 86 94 94 Respiratory Rate 20 22 H 24 H Blood Pressure 101/64 117/65 116/53 L Pulse Oximetry 96 96 94 09/20/20 17:45 09/20/20 18:25 09/20/20 18:41 Temperature 37.4 C 37.4 C Pulse Rate 93 94 93 Respiratory Rate 22 H 20 20 Blood Pressure 111/57 L 135/68 139/83 Pulse Oximetry 94 94 95 09/20/20 19:04 09/21/20 08:13 Temperature 37.2 C Pulse Rate 95 93 Respiratory Rate 18 Blood Pressure 132/74 Pulse Oximetry 94 Intake/Output Intake/Output: Intake & Output 09/18/20 09/19/20 09/20/20 09/21/20 23:59 23:59 23:59 23:59 Intake Total 1320 1440 900 701 Output Total 425 1050 925 350 Balance 895 390 -25 351 Meds/Results Medications: Active Medications Generic Name Dose Route Start Last Admin Trade Name Freq PRN Reason Stop Dose Admin Acetaminophen 650 mg 09/17/20 19:56 Acetaminophen 325 Mg Tablet PO Q4H PRN Mild Pain (1-3) Or Fever Apixaban 5 mg 09/21/20 09:00 09/21/20 08:11 Apixaban 5 Mg Tablet PO 5 mg Q12HR ANABEL Administration Aspirin 81 mg 09/18/20 08:00 09/21/20 08:08 Aspirin 81 Mg Chewable Tablet PO 81 mg DAILY@0800 [facility] Administration Heparin Sodium ([place]
[2020-09-21] MEDS: EPOETIN ALFA-EPBX 10,000 UNITS/ML VIAL 10000 UNITS IV PUSH (12:14)
[2020-09-21 12:35] LABS: Ammonia < 9 umol/L (9-30)
[2020-09-21] MEDS: HEPARIN SODIUM 1,000 UNITS/ML VIAL 1000 UNITS IV PUSH (13:51)
--- NOTE | 2020-09-21 14:55 | PM.IMPN ---
Progress Note: A&P Assessment and Plan (1) Paroxysmal atrial fibrillation: Code(s): I48.0 - Paroxysmal atrial fibrillation Status: Acute Assessment and Plan: Patient has developed intermittent AFib. Probably related to the cardiomyopathy but had recent DVT over a month ago so could be related to PE but felt less likely given no hypoxia or chest pain and anticoagulated Metoprolol started. . back Eliquis today with tunnel cath placed. (2) Acute encephalopathy: Code(s): G93.40 - Encephalopathy, unspecified Status: Acute Assessment and Plan: Patient with acute encephalopathy related to the RENETTA and uremia. Patient is confused at baseline. He had a CT brain on admission showing no acute findings. He had a recent MRI brain last admission also showing no acute findings. Encephalopathy symptoms improving since resolution of the hypernatremia and with HD. Patient probably at baseline. (3) NSTEMI (non-ST elevated myocardial infarction): Code(s): I21.4 - Non-ST elevation (NSTEMI) myocardial infarction Status: Acute Assessment and Plan: Troponin 5.9 on admission and have been trending down. EKG showing no acute findings. Continue ASA and change to oral route. Echo showing EF 20% and grade I diastolic dysfunction but no mention of wall motion abnormalities. Cardiology feels no MS.. Toprol XL added. Hold on BRAD inhibitors until decided if patient will be chronic HD. Add back Lipitor when LFTs better. (4) Cardiomyopathy: Code(s): I42.9 - Cardiomyopathy, unspecified Status: Acute Assessment and Plan: Echo 09/14 showing LV chamber dimension moderately enlarged with severely reduced systolic function (EF 20-25%). Grade I diastolic dysfunction present as well. No old Echo but informed the EF is depressed chronically but not to this extent. Could be related to the renal failure . As above. (5) Sepsis: Qualifiers: Sepsis type: sepsis due to unspecified organism Sepsis acute organ dysfunction status: with acute organ dysfunction Severe sepsis acute organ dysfunction type: encephalopathy Severe sepsis shock status: without septic shock Qualified Code(s): A41.9 - Sepsis, unspecified organism; R65.20 - Severe sepsis without septic shock; G93.40 - Encephalopathy, unspecified Code(s): A41.9 - Sepsis, unspecified organism Status: Acute Assessment and Plan: Pt present on admission with leukocytosis, tachycardia, tachypnea and RENETTA. BCx NGTD. UA not consistent with UTI. CXR 09/15 showing improvement. Consider MRSA PNA given that he was treated with Cefepime for 7 days prior to last discharge. Consider findings related to severe dehydration. Vanco started 09/13/20.(day # 9) and plan on d/c today 09/21 (6) Acute respiratory failure with hypoxia: Code(s): J96.01 - Acute respiratory failure with hypoxia Status: Acute Assessment and Plan: Patient was on room air at last discharge on 09/08/20. ABG here showing 7.42/34/64 on RA. CXR 09/12 showing improving bilateral airspace disease. Vancomycin started for possible PNA. and stopped 09/21, COVID negative. CXR 09/15 showing improvement. Remains on room air now. (7) RENETTA (acute kidney injury): Code(s): N17.9 - Acute kidney failure, unspecified Status: Acute Assessment and Plan: BUN 78 and Cr 5.2 on admission. [place] related to dehydration. IV fluids started and levels worsened to 102 and 7.8 respectfully on 09/15. Bicarb down but potassium normal. UOP still poor. Renal US normal. Honorio placed 09/15 and patient underwent HD. He tolerated this well. Nephrology following and repeat dialysis today 09/21 Tunnel cath to be placed 09/20 (8) Leukocytosis: Qualifiers: Leukocytosis type: unspecified Qualified Code(s): D72.829 - Elevated white blood cell count, unspecified Code(s): D72.829 - Elevated white blood c
[2020-09-21] MEDS: ACETAMINOPHEN 325 MG TABLET 650 MG PO (16:50)
[2020-09-21] MEDS: rOPINIRole HCL 1 MG TABLET 2 MG PO (20:30)
[2020-09-22 05:44] VITALS: BP 113/65; PULSE 98; RESP 17; TEMP 37; O2SAT 95
[2020-09-22 08:35] VITALS: PULSE 98
[2020-09-22] MEDS: APIXABAN 5 MG TABLET PO ×2 (08:35→21:02)
[2020-09-22] MEDS: METOPROLOL SUCCINATE EXT REL 25 MG TABCR PO (08:35)
[2020-09-22] MEDS: ASPIRIN 81 MG CHEWABLE TABLET PO (08:35)
[2020-09-22] MEDS: SOD HYPOCHLORITE 1/4 STRENGTH 473 ML 1 APPLIC TOPICAL ×2 (08:35→21:02)
--- NOTE | 2020-09-22 09:24 | PM.PNCARD ---
Progress Note: A&P Assessment and Plan (1) Elevated troponin: Code(s): R77.8 - Other specified abnormalities of plasma proteins Status: Acute Assessment and Plan: Elevated troponins though flat, probably not related to an acute coronary event since there was no chest pain or EKG changes. May have (COVID?) myocarditis, or poor clearing of troponins because of chronic CAD and acute renal failure. Will treat conservatively. Will hold aspirin for now since he is on full-dose Eliquis in order to reduce his bleeding risk. Will check a comprehensive metabolic panel tomorrow. If his liver enzymes are improved, will resume statin (2) CAD (coronary artery disease): Code(s): I25.10 - Atherosclerotic heart disease of [place] coronary artery without angina pectoris Status: Acute Assessment and Plan: History of CAD and stents in 2010, normal LV function in the past but recent significant decline. (3) Acute renal failure (ARF): Code(s): N17.9 - Acute kidney failure, unspecified Status: Acute Assessment and Plan: Now on dialysis (4) Sepsis: Qualifiers: Sepsis type: sepsis due to unspecified organism Sepsis acute organ dysfunction status: with acute organ dysfunction Severe sepsis acute organ dysfunction type: encephalopathy Severe sepsis shock status: without septic shock Qualified Code(s): A41.9 - Sepsis, unspecified organism; R65.20 - Severe sepsis without septic shock; G93.40 - Encephalopathy, unspecified Code(s): A41.9 - Sepsis, unspecified organism Status: Acute Assessment and Plan: (5) Right leg DVT: Qualifiers: Affected thrombotic vein of extremity: unspecified vein of extremity Chronicity: acute Qualified Code(s): I82.401 - Acute embolism and thrombosis of unspecified deep veins of right lower extremity Code(s): I82.401 - Acute embolism and thrombosis of unspecified deep veins of right lower extremity Status: Acute Assessment and Plan: DVT noted last admission, on Eliquis. (6) History of 2019 novel coronavirus disease (COVID-19): Code(s): Z86.19 - Personal history of other infectious and parasitic diseases Status: Acute Assessment and Plan: Positive a few weeks ago. Now testing negative (7) Cardiomyopathy: Code(s): I42.9 - Cardiomyopathy, unspecified Status: Acute Assessment and Plan: Previously normal EF. Possibly related to COVID infection. continue Toprol XL 25 mg p.o. daily. uptitrate as able as well as initiate other standard heart failure regimen as BP and renal function will tolerate (8) Encephalopathy: Code(s): G93.40 - Encephalopathy, unspecified Status: Acute Subjective Date/time seen: 09/22/20 09:24 Interval history: Follow-up visit in this 75-year-old man with: Ischemic heart disease and echocardiographic evidence of significant decline in LV systolic function. Worsening of chronic kidney disease with placement of percutaneous dialysis catheter yesterday. Patient underwent 1st dialysis treatment last evening. Date of service 09/21/2020: encephalopathic today.. No chest pain or shortness of breath Review of Systems Constitutional: Constitutional: Reports fatigue and Reports weakness Eyes: Eyes: Reports no additional eye complaints ENT: Reports system reviewed and no additional complaints, except as documented and Denies lip swelling Cardiovascular: Cardiovascular: Reports no additional cardiovascular complaints Respiratory: Respiratory: Reports no additional respiratory complaints Genitourinary: Genitourinary: Reports no additional male genitourinary complaints Musculoskeletal: Musculoskeletal: Reports joint swelling (Left knee) Integumentary/Breasts: Skin/Breast: Reports syste
--- NOTE | 2020-09-22 12:42 | PM.IMPN ---
Progress Note: A&P Assessment and Plan (1) Paroxysmal atrial fibrillation: Code(s): I48.0 - Paroxysmal atrial fibrillation Status: Acute Assessment and Plan: Patient has developed intermittent AFib. Probably related to the cardiomyopathy but had recent DVT over a month ago so could be related to PE but felt less likely given no hypoxia or chest pain and anticoagulated Metoprolol started. . back on Eliquis and off IV heparin 09/21 with tunnel cath placed 09/20. (2) Acute encephalopathy: Code(s): G93.40 - Encephalopathy, unspecified Status: Acute Assessment and Plan: Patient with acute encephalopathy related to the RENETTA and uremia. Patient is confused at baseline. He had a CT brain on admission showing no acute findings. He had a recent MRI brain last admission also showing no acute findings. Encephalopathy symptoms improved some since resolution of the hypernatremia and with HD. Patient probably at baseline. (3) NSTEMI (non-ST elevated myocardial infarction): Code(s): I21.4 - Non-ST elevation (NSTEMI) myocardial infarction Status: Acute Assessment and Plan: Troponin 5.9 on admission and have been trending down. EKG showing no acute findings. Continue ASA and change to oral route. Echo showing EF 20% and grade I diastolic dysfunction but no mention of wall motion abnormalities. Cardiology feels no SC.. Toprol XL added. Hold on BRAD inhibitors for now with renal function and lower bp. Add back Lipitor when LFTs better. (4) Cardiomyopathy: Code(s): I42.9 - Cardiomyopathy, unspecified Status: Acute Assessment and Plan: Echo 09/14 showing LV chamber dimension moderately enlarged with severely reduced systolic function (EF 20-25%). Grade I diastolic dysfunction present as well. No old Echo but informed the EF is depressed chronically but not to this extent. Could be related to the renal failure . As above. (5) Sepsis: Qualifiers: Sepsis type: sepsis due to unspecified organism Sepsis acute organ dysfunction status: with acute organ dysfunction Severe sepsis acute organ dysfunction type: encephalopathy Severe sepsis shock status: without septic shock Qualified Code(s): A41.9 - Sepsis, unspecified organism; R65.20 - Severe sepsis without septic shock; G93.40 - Encephalopathy, unspecified Code(s): A41.9 - Sepsis, unspecified organism Status: Acute Assessment and Plan: Pt present on admission with leukocytosis, tachycardia, tachypnea and RENETTA. BCx NGTD. UA not consistent with UTI. CXR 09/15 showing improvement. Consider MRSA PNA given that he was treated with Cefepime for 7 days prior to last discharge. Consider findings related to severe dehydration. Vanco started 09/13/20.(day # 9) and d/c 09/21 (6) Acute respiratory failure with hypoxia: Code(s): J96.01 - Acute respiratory failure with hypoxia Status: Acute Assessment and Plan: Patient was on room air at last discharge on 09/08/20. ABG here showing 7.42/34/64 on RA. CXR 09/12 showing improving bilateral airspace disease. Vancomycin started for possible PNA. and stopped 09/21, COVID negative. CXR 09/15 showing improvement. Remains on room air now. (7) RENETTA (acute kidney injury): Code(s): N17.9 - Acute kidney failure, unspecified Status: Acute Assessment and Plan: BUN 78 and Cr 5.2 on admission. [place] related to dehydration. IV fluids started and levels worsened to 102 and 7.8 respectfully on 09/15. Bicarb down but potassium normal. UOP still poor. Renal US normal. Honorio placed 09/15 and patient underwent HD. He tolerated this well. Nephrology following and repeat dialysis today 09/21 Tunnel cath to be placed 09/20 (8) Leukocytosis: Qualifiers: Leukocytosis type: unspecified Qualified Code(s): D72.829 - Elevated white blood cell count, unspecified Code(s): D72.829 - Elevat
[2020-09-22 14:00] VITALS: BP 100/57; PULSE 95; RESP 20; TEMP 36.9; O2SAT 95
--- NOTE | 2020-09-22 17:18 | P.PNNP_ITS ---
Progress Note: A&P Assessment and Plan (1) RENETTA (acute kidney injury): Code(s): N17.9 - Acute kidney failure, unspecified Status: Acute Assessment and Plan: * suspect ATN as etiology * renal ultrasound is negative * urine electrolytes are non pre renal. * urinalysis is bland but does show 2+ protein. * continue HD on M/W/F schedule * follow labs and UOP for renal recovery (2) Acute encephalopathy: Code(s): G93.40 - Encephalopathy, unspecified Status: Acute Assessment and Plan: * possibly due to underlying dementia * Electrolytes are okay. * no acute infection * follow mentation (3) Hypernatremia: Code(s): E87.0 - Hyperosmolality and hypernatremia Status: Acute Assessment and Plan: * Resolved (4) Sepsis: Qualifiers: Sepsis acute organ dysfunction status: with acute organ dysfunction Sepsis type: sepsis due to unspecified organism Severe sepsis acute organ dysfunction type: encephalopathy Severe sepsis shock status: without septic shock Qualified Code(s): A41.9 - Sepsis, unspecified organism; R65.20 - Severe sepsis without septic shock; G93.40 - Encephalopathy, unspecified Code(s): A41.9 - Sepsis, unspecified organism Status: Acute Assessment and Plan: * blood cultures negative so far * pneumonia on chest x-ray * Vancomycin on board [place] knee infection * continue supportive therapy (5) Transaminitis: Code(s): R74.01 - Elevation of levels of liver transaminase levels Status: Acute Assessment and Plan: * suggest shock liver * enzyme levels are gradually improving Will continue to follow Subjective Date/time seen: 09/22/20 17:18 Chart reviewed since last seen -- tolerated dialysis yesterday without any significant issues or problems; mentation seems about the same (no worse but no better; no apparent distress noted. Exam Narrative: Exam Narrative: General: Elderly male laying in bed and in NAD Heart: normal S1 and S2; no rub Lungs: clear Abdomen: soft, nontender, nondistended, positive bowel sounds Extremities: no cyanosis or clubbing; no edema Skin: warm and dry Objective Data Vital Signs Vital Signs: Vital Signs Temp Pulse Resp BP Pulse Ox 09/22/20 14:00 36.9 C 95 20 100/57 L 95 09/22/20 08:35 98 09/22/20 05:44 37.0 C 98 17 113/65 95 09/21/20 20:40 37.1 C 105 H 18 124/65 97 09/21/20 17:50 37.5 C Intake/Output Intake/Output: Intake & Output 09/19/20 09/20/20 09/21/20 09/22/20 23:59 23:59 23:59 23:59 Intake Total 0815 338 1274 1300 Output Total 1462 178 4682 450 Balance 390 -46 -262 609 Meds/Results Medications: Active Medications Generic Name Dose Route Start Last Admin Trade Name Freq PRN Reason Stop Dose Admin Acetaminophen 650 mg 09/17/20 19:56 09/21/20 16:50 Acetaminophen 325 Mg Tablet PO 650 mg Q4H PRN Administration Mild Pain (1-3) Or Fever Apixaban 5 mg 09/21/20 09:00 09/22/20 08:35 Apixaban 5 Mg Tablet PO 5 mg Q12HR ANABEL Administration Heparin Sodium (Porcine) 5,000 units 09/20/20 16:40 Heparin Sodium 5,000 Units/Ml Vial IRRIGATION ONCE ANABEL Metoprolol Succinate 25 mg 09/19/20 09:00 09/22
--- NOTE | 2020-09-22 17:18 | PM.PNNEP ---
Progress Note: A&P Assessment and Plan (1) RENETTA (acute kidney injury): Code(s): N17.9 - Acute kidney failure, unspecified Status: Acute Assessment and Plan: suspect ATN as etiology renal ultrasound is negative urine electrolytes are non pre renal. urinalysis is bland but does show 2+ protein. continue HD on M/W/F schedule follow labs and UOP for renal recovery (2) Acute encephalopathy: Code(s): G93.40 - Encephalopathy, unspecified Status: Acute Assessment and Plan: possibly due to underlying dementia Electrolytes are okay. no acute infection follow mentation (3) Hypernatremia: Code(s): E87.0 - Hyperosmolality and hypernatremia Status: Acute Assessment and Plan: Resolved (4) Sepsis: Qualifiers: Sepsis acute organ dysfunction status: with acute organ dysfunction Sepsis type: sepsis due to unspecified organism Severe sepsis acute organ dysfunction type: encephalopathy Severe sepsis shock status: without septic shock Qualified Code(s): A41.9 - Sepsis, unspecified organism; R65.20 - Severe sepsis without septic shock; G93.40 - Encephalopathy, unspecified Code(s): A41.9 - Sepsis, unspecified organism Status: Acute Assessment and Plan: blood cultures negative so far pneumonia on chest x-ray Vancomycin on board fortunato knee infection continue supportive therapy (5) Transaminitis: Code(s): R74.01 - Elevation of levels of liver transaminase levels Status: Acute Assessment and Plan: suggest shock liver enzyme levels are gradually improving Will continue to follow Subjective Date/time seen: 09/22/20 17:18 Chart reviewed since last seen -- tolerated dialysis yesterday without any significant issues or problems; mentation seems about the same (no worse but no better; no apparent distress noted. Exam Narrative: Exam Narrative: General: Elderly male laying in bed and in NAD Heart: normal S1 and S2; no rub Lungs: clear Abdomen: soft, nontender, nondistended, positive bowel sounds Extremities: no cyanosis or clubbing; no edema Skin: warm and dry Objective Data Vital Signs Vital Signs: Vital Signs Temp Pulse Resp BP Pulse Ox 09/22/20 14:00 36.9 C 95 20 100/57 L 95 09/22/20 08:35 98 09/22/20 05:44 37.0 C 98 17 113/65 95 09/21/20 20:40 37.1 C 105 H 18 124/65 97 09/21/20 17:50 37.5 C Intake/Output Intake/Output: Intake & Output 09/19/20 09/20/20 09/21/20 09/22/20 23:59 23:59 23:59 23:59 Intake Total 7760 194 2813 1300 Output Total 6523 895 5321 450 Balance 390 -98 -034 416 Meds/Results Medications: Active Medications Generic Name Dose Route Start Last Admin Trade Name Freq PRN Reason Stop Dose Admin Acetaminophen 650 mg 09/17/20 19:56 09/21/20 16:50 Acetaminophen 325 Mg Tablet PO 650 mg Q4H PRN Administration Mild Pain (1-3) Or Fever Apixaban 5 mg 09/21/20 09:00 09/22/20 08:35 Apixaban 5 Mg Tablet PO 5 mg Q12HR ANABEL Administration Heparin Sodium (Porcine) 5,000 units 09/20/20 16:40 Heparin Sodium 5,000 Units/Ml Vial IRRIGATION ONCE ANABEL Metoprolol Succinate 25 mg 09/19/20 09:00 09/22/20 08:35 Metoprolol Succinate Ext Rel 25 Mg Tabcr PO 25 mg QAM ANABEL Administration Ondansetron HCl 4 mg 09/12/20 23:49 Ondansetron Inj 4 Mg/2 Ml Vial IV PUSH Q4H PRN Nausea Ropinirole HCl 2 mg 09/17/20 21:00 09/21/20 20:30 Ropinirole Hcl 1 Mg Tablet PO 2 mg HS ANABEL Administration Sodium Chloride 10 ml 09/15/20 22:00 09/22/20 13:46 Central Line Flush IV PUSH Not Given Q8HR ANABEL Sodium Chloride 20 ml 09/15/20 14:22 09/20/20 12:17 Central Line Flush IV PUSH 20 ml PRN PRN Administration after blood draws Sodium Hypochlorite 1 applic 09/13/20 21:00 09/22/20 08:35 Sod Hypochlorite 1/4 Strength 473 Ml TOPICAL 1 applic Q12HR ANABEL Administration
[2020-09-22 20:00] VITALS: BP 129/70; PULSE 55; RESP 20; TEMP 36.9; O2SAT 94
[2020-09-22] MEDS: rOPINIRole HCL 1 MG TABLET 2 MG PO (21:02)
[2020-09-23 06:20] LABS: Hematocrit 25.1 % (42.0-52.0); Hemoglobin 7.8 g/dL (14.0-18.0); Mean Corpuscular HGB Conc 31.1 g/dl (32-36); Mean Corpuscular Hemoglobin 29.7 pg (26-34); Mean Corpuscular Volume 95.4 fl (80-100); Mean Platelet Volume 10.4 fl (7.4-10.4); Platelet Count Result 318 k/mm3 (150-375); Red Blood Count 2.63 M/mm3 (4.6-6.20); Red Cell Distribution Width 14.6 % (11.5-14.5); White Blood Count 20.6 K/mm3 (4.5-10.0)
[2020-09-23 06:41] LABS: Alanine Aminotransferase 72 U/L (4-50); Albumin Level 3.2 g/dL (3.5-5.1); Alkaline Phosphatase 97 U/L (38-126); Anion Gap 11 mmol/L (8-16); Aspartate Amino Transferase 55 U/L (17-59); Bilirubin,Total 0.5 mg/dL (0.2-1.3); Blood Urea Nitrogen 59 mg/dL (9-20); Calcium 8.6 mg/dL (8.4-10.2); Carbon Dioxide 29 mmol/L (22-30); Chloride 95 mmol/L (98-107); Estimated CRCL calculation 12 ml/min; Estimated Glomerular Filt Rate 10; Glucose 127 mg/dL (75-110); Potassium 4.1 mmol/L (3.4-5.0); Sodium 135 mmol/L (137-145)
[2020-09-23 07:14] LABS: Lymphocytes Absolute Manual 1.44 K/mm3 (1.1-4.5); Monocytes Absolute Manual 2.06 K/mm3 (0.1-0.90); Monocytes Percent Manual 10 % (3-9); Neutrophils Percent Manual 83 % (46-73); Platelet Estimate Adequate (Adequate); Total Cells Counted 100
[2020-09-23 07:15] LABS: Poikilocytosis 1+ (NORMAL)
[2020-09-23 08:27] VITALS: PULSE 60
[2020-09-23] MEDS: APIXABAN 5 MG TABLET PO ×2 (08:27→20:37)
[2020-09-23] MEDS: SOD HYPOCHLORITE 1/4 STRENGTH 473 ML 1 APPLIC TOPICAL ×2 (08:27→20:42)
[2020-09-23] MEDS: METOPROLOL SUCCINATE EXT REL 25 MG TABCR PO (08:27)
--- NOTE | 2020-09-23 11:41 | PM.PNCARD ---
Progress Note: A&P Assessment and Plan (1) Elevated troponin: Code(s): R77.8 - Other specified abnormalities of plasma proteins Status: Acute Assessment and Plan: Elevated troponins though flat, probably not related to an acute coronary event since there was no chest pain or EKG changes. May have (COVID?) myocarditis, or poor clearing of troponins because of chronic CAD and acute renal failure. Will treat conservatively. Liver enzymes have normalized. Will start atorvastatin 40 mg daily (2) CAD (coronary artery disease): Code(s): I25.10 - Atherosclerotic heart disease of [place] coronary artery without angina pectoris Status: Acute Assessment and Plan: History of CAD and stents in 2010, normal LV function in the past but recent significant decline. (3) Acute renal failure (ARF): Code(s): N17.9 - Acute kidney failure, unspecified Status: Acute Assessment and Plan: Now on dialysis (4) Sepsis: Qualifiers: Sepsis type: sepsis due to unspecified organism Sepsis acute organ dysfunction status: with acute organ dysfunction Severe sepsis acute organ dysfunction type: encephalopathy Severe sepsis shock status: without septic shock Qualified Code(s): A41.9 - Sepsis, unspecified organism; R65.20 - Severe sepsis without septic shock; G93.40 - Encephalopathy, unspecified Code(s): A41.9 - Sepsis, unspecified organism Status: Acute Assessment and Plan: (5) Right leg DVT: Qualifiers: Affected thrombotic vein of extremity: unspecified vein of extremity Chronicity: acute Qualified Code(s): I82.401 - Acute embolism and thrombosis of unspecified deep veins of right lower extremity Code(s): I82.401 - Acute embolism and thrombosis of unspecified deep veins of right lower extremity Status: Acute Assessment and Plan: DVT noted last admission, on Eliquis. (6) History of 2019 novel coronavirus disease (COVID-19): Code(s): Z86.19 - Personal history of other infectious and parasitic diseases Status: Acute Assessment and Plan: Positive a few weeks ago. Now testing negative (7) Cardiomyopathy: Code(s): I42.9 - Cardiomyopathy, unspecified Status: Acute Assessment and Plan: Previously normal EF. Possibly related to COVID infection. continue Toprol XL 25 mg p.o. daily. uptitrate as able as well as initiate other standard heart failure regimen as BP and renal function will tolerate (8) Encephalopathy: Code(s): G93.40 - Encephalopathy, unspecified Status: Acute Subjective Date/time seen: 09/23/20 11:41 Interval history: Follow-up visit in this 75-year-old man with: Ischemic heart disease and echocardiographic evidence of significant decline in LV systolic function. Worsening of chronic kidney disease with placement of percutaneous dialysis catheter yesterday. Patient underwent 1st dialysis treatment last evening. Date of service 09/23/2020: Marginally more clear today.. No chest pain or shortness of breath Review of Systems Review of Systems: ROS unobtainable: Yes unobtainable due to mental status Constitutional: Constitutional: Reports fatigue and Reports weakness Eyes: Eyes: Reports no additional eye complaints ENT: Reports system reviewed and no additional complaints, except as documented and Denies lip swelling Cardiovascular: Cardiovascular: Reports no additional cardiovascular complaints Respiratory: Respiratory: Reports no additional respiratory complaints Genitourinary: Genitourinary: Reports no additional male genitourinary complaints Musculoskeletal: Musculoskeletal: Reports joint swelling (Left knee) Integumentary/Breasts: Skin/Breast: Reports system reviewed and no additional complaints, except as docu
[2020-09-23 14:00] VITALS: BP 120/68; PULSE 95; RESP 20; TEMP 36.4; O2SAT 98
--- NOTE | 2020-09-23 14:09 | P.PNNP_ITS ---
Progress Note: A&P Assessment and Plan (1) RENETTA (acute kidney injury): Code(s): N17.9 - Acute kidney failure, unspecified Status: Acute Assessment and Plan: * suspect ATN as etiology * renal ultrasound is negative * urine electrolytes are non pre renal. * urinalysis is bland but does show 2+ protein. * continue HD on M/W/F schedule * follow labs and UOP for renal recovery (2) Acute encephalopathy: Code(s): G93.40 - Encephalopathy, unspecified Status: Acute Assessment and Plan: * possibly due to underlying dementia * electrolytes are okay. * no acute infection * follow mentation (3) Hypernatremia: Code(s): E87.0 - Hyperosmolality and hypernatremia Status: Acute Assessment and Plan: * Resolved (4) Sepsis: Qualifiers: Sepsis acute organ dysfunction status: with acute organ dysfunction Sepsis type: sepsis due to unspecified organism Severe sepsis acute organ dysfunction type: encephalopathy Severe sepsis shock status: without septic shock Qualified Code(s): A41.9 - Sepsis, unspecified organism; R65.20 - Severe sepsis without septic shock; G93.40 - Encephalopathy, unspecified Code(s): A41.9 - Sepsis, unspecified organism Status: Acute Assessment and Plan: * blood cultures negative so far * pneumonia on chest x-ray * Vancomycin on board for knee infection * continue supportive therapy (5) Transaminitis: Code(s): R74.01 - Elevation of levels of liver transaminase levels Status: Acute Assessment and Plan: * suggest shock liver * enzyme levels are gradually improving Will continue to follow Subjective Date/time seen: 09/23/20 14:09 Mentation seems a bit better today in comparison to yesterday; no new issues or problems to report; no events overnight or earlier this AM. Exam Narrative: Exam Narrative: General: Elderly male laying in bed and in NAD Heart: normal S1 and S2; no rub Lungs: clear anteriorly Abdomen: soft, nontender, nondistended, positive bowel sounds Extremities: no cyanosis or clubbing; no edema Skin: warm and intact Objective Data Vital Signs Vital Signs: Vital Signs Temp Pulse Resp BP Pulse Ox 09/23/20 14:00 36.4 C 95 20 120/68 98 09/23/20 08:27 60 09/22/20 20:00 36.9 C 55 L 20 129/70 94 Intake/Output Intake/Output: Intake & Output 09/20/20 09/21/20 09/22/20 09/23/20 23:59 23:59 23:59 23:59 Intake Total 900 1181 1540 340 Output Total 925 1700 450 200 Balance -25 -519 1090 140 Meds/Results Medications: Active Medications Generic Name Dose Route Start Last Admin Trade Name Freq PRN Reason Stop Dose Admin Acetaminophen 650 mg 09/17/20 19:56 09/21/20 16:50 Acetaminophen 325 Mg Tablet PO 650 mg Q4H PRN Administration Mild Pain (1-3) Or Fever Apixaban 5 mg 09/21/20 09:00 09/23/20 08:27 Apixaban 5 Mg Tablet PO 5 mg Q12HR ANABEL Administration Atorvastatin Calcium 40 mg 09/24/20 09:00 Atorvastatin 40 Mg Tablet PO DAILY [facility] Heparin Sodium (Porcine) 5,000 units 09/20/20 16:40 Heparin Sodium 5,000 Units/Ml Vial IRRIGATION ONCE [facility] Metoprolol Succinate 25 mg 09/19/20 09:00 09/23/20 08:27
--- NOTE | 2020-09-23 14:09 | PM.PNNEP ---
Progress Note: A&P Assessment and Plan (1) RENETTA (acute kidney injury): Code(s): N17.9 - Acute kidney failure, unspecified Status: Acute Assessment and Plan: suspect ATN as etiology renal ultrasound is negative urine electrolytes are non pre renal. urinalysis is bland but does show 2+ protein. continue HD on M/W/F schedule follow labs and UOP for renal recovery (2) Acute encephalopathy: Code(s): G93.40 - Encephalopathy, unspecified Status: Acute Assessment and Plan: possibly due to underlying dementia electrolytes are okay. no acute infection follow mentation (3) Hypernatremia: Code(s): E87.0 - Hyperosmolality and hypernatremia Status: Acute Assessment and Plan: Resolved (4) Sepsis: Qualifiers: Sepsis acute organ dysfunction status: with acute organ dysfunction Sepsis type: sepsis due to unspecified organism Severe sepsis acute organ dysfunction type: encephalopathy Severe sepsis shock status: without septic shock Qualified Code(s): A41.9 - Sepsis, unspecified organism; R65.20 - Severe sepsis without septic shock; G93.40 - Encephalopathy, unspecified Code(s): A41.9 - Sepsis, unspecified organism Status: Acute Assessment and Plan: blood cultures negative so far pneumonia on chest x-ray Vancomycin on board for knee infection continue supportive therapy (5) Transaminitis: Code(s): R74.01 - Elevation of levels of liver transaminase levels Status: Acute Assessment and Plan: suggest shock liver enzyme levels are gradually improving Will continue to follow Subjective Date/time seen: 09/23/20 14:09 Mentation seems a bit better today in comparison to yesterday; no new issues or problems to report; no events overnight or earlier this AM. Exam Narrative: Exam Narrative: General: Elderly male laying in bed and in NAD Heart: normal S1 and S2; no rub Lungs: clear anteriorly Abdomen: soft, nontender, nondistended, positive bowel sounds Extremities: no cyanosis or clubbing; no edema Skin: warm and intact Objective Data Vital Signs Vital Signs: Vital Signs Temp Pulse Resp BP Pulse Ox 09/23/20 14:00 36.4 C 95 20 120/68 98 09/23/20 08:27 60 09/22/20 20:00 36.9 C 55 L 20 129/70 94 Intake/Output Intake/Output: Intake & Output 09/20/20 09/21/20 09/22/20 09/23/20 23:59 23:59 23:59 23:59 Intake Total 900 1181 1540 340 Output Total 925 1700 450 200 Balance -25 -519 1090 140 Meds/Results Medications: Active Medications Generic Name Dose Route Start Last Admin Trade Name Freq PRN Reason Stop Dose Admin Acetaminophen 650 mg 09/17/20 19:56 09/21/20 16:50 Acetaminophen 325 Mg Tablet PO 650 mg Q4H PRN Administration Mild Pain (1-3) Or Fever Apixaban 5 mg 09/21/20 09:00 09/23/20 08:27 Apixaban 5 Mg Tablet PO 5 mg Q12HR ANABEL Administration Atorvastatin Calcium 40 mg 09/24/20 09:00 Atorvastatin 40 Mg Tablet PO DAILY ANABEL Heparin Sodium (Porcine) 5,000 units 09/20/20 16:40 Heparin Sodium 5,000 Units/Ml Vial IRRIGATION ONCE ANABEL Metoprolol Succinate 25 mg 09/19/20 09:00 09/23/20 08:27 Metoprolol Succinate Ext Rel 25 Mg Tabcr PO 25 mg QAM ANABEL Administration Ondansetron HCl 4 mg 09/12/20 23:49 Ondansetron Inj 4 Mg/2 Ml Vial IV PUSH Q4H PRN Nausea Ropinirole HCl 2 mg 09/17/20 21:00 09/22/20 21:02 Ropinirole Hcl 1 Mg Tablet PO 2 mg HS ANABEL Administration Sodium Chloride 20 ml 09/15/20 14:22 09/20/20 12:17 Central Line Flush IV PUSH 20 ml PRN PRN Administration after blood draws Sodium Hypochlorite 1 applic 09/13/20 21:00 09/23/20 08:27 Sod Hypochlorite 1/4 Strength 473 Ml TOPICAL 1 applic Q12HR ANABEL Administration Radiology Results: ITS Impressions Head CT 09/12/20 22:02 IMPRESSION: 1. No acute intracranial abnormality. 2. Age related
--- NOTE | 2020-09-23 15:45 | PM.IMPN ---
Progress Note: A&P Assessment and Plan (1) Paroxysmal atrial fibrillation: Code(s): I48.0 - Paroxysmal atrial fibrillation Status: Acute Assessment and Plan: Patient has developed intermittent AFib. Probably related to the cardiomyopathy but had recent DVT over a month ago and anticoagulated so doubt PE. Metoprolol started. . back on Eliquis and off IV heparin 09/21 with tunnel cath placed 09/20. (2) Acute encephalopathy: Code(s): G93.40 - Encephalopathy, unspecified Status: Acute Assessment and Plan: Patient with acute encephalopathy related to the RENETTA and uremia. Patient is confused at baseline. He had a CT brain on admission showing no acute findings. He had a recent MRI brain last admission also showing no acute findings. Encephalopathy symptoms improved some since resolution of the hypernatremia and with HD. Patient probably at baseline. (3) NSTEMI (non-ST elevated myocardial infarction): Code(s): I21.4 - Non-ST elevation (NSTEMI) myocardial infarction Status: Acute Assessment and Plan: Troponin 5.9 on admission and have been trending down. EKG showing no acute findings. Continue ASA and change to oral route. Echo showing EF 20% and grade I diastolic dysfunction but no mention of wall motion abnormalities. Cardiology feels no MD.. Toprol XL added. Hold on BRAD inhibitors for now with renal function and lower bp. Add back Lipitor when LFTs better. (4) Cardiomyopathy: Code(s): I42.9 - Cardiomyopathy, unspecified Status: Acute Assessment and Plan: Echo 09/14 showing LV chamber dimension moderately enlarged with severely reduced systolic function (EF 20-25%). Grade I diastolic dysfunction present as well. No old Echo but informed the EF is depressed chronically but not to this extent. Could be related to the renal failure . As above. beta alma and control fluid with dialysis (5) Sepsis: Qualifiers: Sepsis type: sepsis due to unspecified organism Sepsis acute organ dysfunction status: with acute organ dysfunction Severe sepsis acute organ dysfunction type: encephalopathy Severe sepsis shock status: without septic shock Qualified Code(s): A41.9 - Sepsis, unspecified organism; R65.20 - Severe sepsis without septic shock; G93.40 - Encephalopathy, unspecified Code(s): A41.9 - Sepsis, unspecified organism Status: Acute Assessment and Plan: Pt present on admission with leukocytosis, tachycardia, tachypnea and RENETTA. BCx NGTD. UA not consistent with UTI. CXR 09/15 showing improvement. Consider MRSA PNA given that he was treated with Cefepime for 7 days prior to last discharge. Consider findings related to severe dehydration. Vanco started 09/13/20.(day # 9) and d/c 09/21 CXR today 09/23 probable RML infiltrate. will repeat blood and urine culture (6) Acute respiratory failure with hypoxia: Code(s): J96.01 - Acute respiratory failure with hypoxia Status: Acute Assessment and Plan: Patient was on room air at last discharge on 09/08/20. ABG here showing 7.42/34/64 on RA. CXR 09/12 showing improving bilateral airspace disease. Vancomycin started for possible PNA. and stopped 09/21, COVID negative. CXR 09/15 showing improvement. Remains on room air now. (7) RENETTA (acute kidney injury): Code(s): N17.9 - Acute kidney failure, unspecified Status: Acute Assessment and Plan: BUN 78 and Cr 5.2 on admission. [place] related to dehydration. IV fluids started and levels worsened to 102 and 7.8 respectfully on 09/15. Bicarb down but potassium normal. UOP still poor. Renal US normal. Honorio placed 09/15 and patient underwent HD. He tolerated this well. Nephrology following and repeat dialysis 09/21 , with next scheduled 09/24 Tunnel cath to be placed 09/20 (8) Leukocytosis: Qualifiers: Leukocytosis type: unspecified Qualified Code(s): D72.829
[2020-09-23 20:00] VITALS: BP 141/69; PULSE 93; RESP 18; TEMP 37.3; O2SAT 98
[2020-09-23] MEDS: rOPINIRole HCL 1 MG TABLET 2 MG PO (20:37)
[2020-09-23 20:40] VITALS: PULSE 93; RESP 18; O2SAT 98
[2020-09-24] VITALS (19 sets, daily range): BP systolic 68–157; BP diastolic 39–124; PULSE 61–128; RESP 18–22; TEMP 35.5–38.6; O2SAT 97
[2020-09-24 05:52] LABS: Basophils Absolute Auto 0.1 K/mm3 (0.0-0.1); Basophils Percent Auto 0.5 % (0.2-1.2); Eosinophils Absolute Auto 0.2 K/mm3 (0-0.3); Eosinophils Percent Auto 1.3 % (0-4.4); Hematocrit 27.4 % (42.0-52.0); Hemoglobin 8.4 g/dL (14.0-18.0); Immature Granulocyte Absolute 0.16 K/mm3 (0.00-0.031); Immature Granulocyte Percent A 0.9 % (0-0.5); Lymphocytes Percent Auto 6.9 % (18.3-44.2); Mean Corpuscular HGB Conc 30.7 g/dl (32-36); Mean Corpuscular Hemoglobin 29.2 pg (26-34); Mean Corpuscular Volume 95.1 fl (80-100); Mean Platelet Volume 10.5 fl (7.4-10.4); Monocytes Absolute Auto 1.1 K/mm3 (0.1-0.6); Monocytes Percent Auto 6.1 % (2.6-8.5); Neutrophils Absolute Auto 14.6 K/mm3 (1.3-6.7); Neutrophils Percent Auto 84.3 % (45.5-73.1); Platelet Count Result 333 k/mm3 (150-375); Red Blood Count 2.88 M/mm3 (4.6-6.20); Red Cell Distribution Width 14.6 % (11.5-14.5); White Blood Count 17.3 K/mm3 (4.5-10.0)
[2020-09-24 06:08] LABS: Alanine Aminotransferase 76 U/L (4-50); Albumin Level 3.3 g/dL (3.5-5.1); Alkaline Phosphatase 102 U/L (38-126); Aspartate Amino Transferase 59 U/L (17-59); Bilirubin,Total 0.5 mg/dL (0.2-1.3)
[2020-09-24 06:12] LABS: Anion Gap 11 mmol/L (8-16); Blood Urea Nitrogen 72 mg/dL (9-20); Calcium 8.8 mg/dL (8.4-10.2); Carbon Dioxide 29 mmol/L (22-30); Chloride 96 mmol/L (98-107); Estimated CRCL calculation 10 ml/min; Estimated Glomerular Filt Rate 9; Glucose 112 mg/dL (75-110); Sodium 136 mmol/L (137-145)
[2020-09-24] MEDS: METOPROLOL SUCCINATE EXT REL 25 MG TABCR PO (08:41)
[2020-09-24] MEDS: APIXABAN 5 MG TABLET PO ×2 (08:41→20:09)
[2020-09-24] MEDS: ATORVASTATIN 40 MG TABLET PO (08:41)
[2020-09-24] MEDS: SOD HYPOCHLORITE 1/4 STRENGTH 473 ML 1 APPLIC TOPICAL ×2 (08:43→20:09)
--- NOTE | 2020-09-24 09:24 | PCOTNOTE ---
OT treatment not completed at this time due to patient refusal. Patient states I am too tired and I just don't feel like it today . Will continue per POC.
--- NOTE | 2020-09-24 10:10 | PC.NURSE ---
Patient to dialysis via hospital bed.
--- NOTE | 2020-09-24 12:53 | PM.PNNEP ---
Progress Note: A&P Assessment and Plan (1) RENETTA (acute kidney injury): Code(s): N17.9 - Acute kidney failure, unspecified Status: Acute Assessment and Plan: suspect ATN as etiology renal ultrasound is negative urine electrolytes are non pre renal. urinalysis is bland but does show 2+ protein. HD today and continue HD on /W/F schedule follow labs and UOP for renal recovery (2) Acute encephalopathy: Code(s): G93.40 - Encephalopathy, unspecified Status: Acute Assessment and Plan: possibly due to underlying dementia electrolytes are okay no acute infection follow mentation (3) Hypernatremia: Code(s): E87.0 - Hyperosmolality and hypernatremia Status: Acute Assessment and Plan: resolved (4) Sepsis: Qualifiers: Sepsis acute organ dysfunction status: with acute organ dysfunction Sepsis type: sepsis due to unspecified organism Severe sepsis acute organ dysfunction type: encephalopathy Severe sepsis shock status: without septic shock Qualified Code(s): A41.9 - Sepsis, unspecified organism; R65.20 - Severe sepsis without septic shock; G93.40 - Encephalopathy, unspecified Code(s): A41.9 - Sepsis, unspecified organism Status: Acute Assessment and Plan: blood cultures negative so far pneumonia on chest x-ray follow repeat cultures - back on antibiotics continue supportive therapy (5) Transaminitis: Code(s): R74.01 - Elevation of levels of liver transaminase levels Status: Acute Assessment and Plan: suggest shock liver enzyme levels are gradually improving Will continue to follow Subjective Date/time seen: 09/24/20 12:53 Tolerating dialysis at the time of my visit (seen on HD at ~ 12:35PM); mentation/mental status seems about the same as when I saw him yesterday; febrile earlier today and with CXR showing new infiltrate along with elevated WBC, started back on antibiotics today. Exam Narrative: Exam Narrative: General: Elderly male laying in bed and in NAD Heart: normal S1 and S2; no rub Lungs: clear anteriorly Abdomen: soft, nontender, nondistended, positive bowel sounds Extremities: no cyanosis or clubbing; no edema Skin: warm and intact Objective Data Vital Signs Vital Signs: Vital Signs Temp Pulse Resp BP Pulse Ox 09/24/20 11:45 81 117/65 09/24/20 11:30 120 H 122/62 09/24/20 11:15 100 113/43 L 09/24/20 11:00 120 H 136/67 09/24/20 10:47 63 68/39 L 09/24/20 10:30 80 121/50 L 09/24/20 10:17 38.4 C H 112 H 20 157/71 H 09/24/20 08:41 108 H 09/24/20 05:28 36.6 C 93 18 134/74 97 09/23/20 20:40 93 18 98 09/23/20 20:00 37.3 C 93 18 141/69 H 98 09/23/20 14:00 36.4 C 95 20 120/68 98 Intake/Output Intake/Output: Intake & Output 09/21/20 09/22/20 09/23/20 09/24/20 23:59 23:59 23:59 23:59 Intake Total 1181 1540 780 240 Output Total 1700 450 500 350 Balance -519 1090 280 -110 Meds/Results Medications: Active Medications Generic Name Dose Route Start Last Admin Trade Name Freq PRN Reason Stop Dose Admin Acetaminophen 650 mg 09/17/20 19:56 09/21/20 16:50 Acetaminophen 325 Mg Tablet PO 650 mg Q4H PRN Administration Mild Pain (1-3) Or Fever Apixaban 5 mg 09/21/20 09:00 09/24/20 08:41 Apixaban 5 Mg Tablet PO 5 mg Q12HR ANABEL Administration Atorvastatin Calcium 40 mg 09/24/20 09:00 09/24/20 08:41 Atorvastatin 40 Mg Tablet PO 40 mg DAILY ANABEL Administration Heparin Sodium (Porcine) 5,000 units 09/20/20 16:40 Heparin Sodium 5,000 Units/Ml Vial IRRIGATION ONCE ANABEL Piperacillin Sod/Tazobactam Sod 2.25 gm in 50 mls @ 100 mls/hr 09/24/20 14:00 Zosyn 2.25 Gm/D5w 50 Ml IVPB Q8H ANABEL Metoprolol Succinate 25 mg 09/19/20 09:00 09/24/20 08:41 Metoprolol Succinate Ext Rel 25 Mg Tabcr PO 25 mg QAM ANABEL Administration Ondansetron HCl 4 mg
--- NOTE | 2020-09-24 14:10 | PC.NURSE ---
Patient returned from dialysis via hospital bed.
--- NOTE | 2020-09-24 15:26 | PM.IMPN ---
Progress Note: A&P Assessment and Plan (1) Paroxysmal atrial fibrillation: Code(s): I48.0 - Paroxysmal atrial fibrillation Status: Acute Assessment and Plan: Patient has developed intermittent AFib. Probably related to the cardiomyopathy but had recent DVT over a month ago and anticoagulated so doubt PE. Metoprolol started. . back on Eliquis and off IV heparin 09/21 with tunnel cath placed 09/20. (2) Acute encephalopathy: Code(s): G93.40 - Encephalopathy, unspecified Status: Acute Assessment and Plan: Patient with acute encephalopathy related to the RENETTA and uremia. Patient is confused at baseline. He had a CT brain on admission showing no acute findings. He had a recent MRI brain last admission also showing no acute findings. Encephalopathy symptoms improved some since resolution of the hypernatremia and with HD. Patient probably at baseline. (3) NSTEMI (non-ST elevated myocardial infarction): Code(s): I21.4 - Non-ST elevation (NSTEMI) myocardial infarction Status: Acute Assessment and Plan: Troponin 5.9 on admission and have been trending down. EKG showing no acute findings. Continue ASA and change to oral route. Echo showing EF 20% and grade I diastolic dysfunction but no mention of wall motion abnormalities. Cardiology feels no DC.. Toprol XL added. Hold on BRAD inhibitors for now with renal function and lower bp. Add back Lipitor with LFTs better. (4) Cardiomyopathy: Code(s): I42.9 - Cardiomyopathy, unspecified Status: Acute Assessment and Plan: Echo 09/14 showing LV chamber dimension moderately enlarged with severely reduced systolic function (EF 20-25%). Grade I diastolic dysfunction present as well. No old Echo but informed the EF is depressed chronically but not to this extent. Could be related to the renal failure . As above. beta alma and control fluid with dialysis (5) Sepsis: Qualifiers: Sepsis acute organ dysfunction status: with acute organ dysfunction Sepsis type: sepsis due to unspecified organism Severe sepsis acute organ dysfunction type: encephalopathy Severe sepsis shock status: without septic shock Qualified Code(s): A41.9 - Sepsis, unspecified organism; R65.20 - Severe sepsis without septic shock; G93.40 - Encephalopathy, unspecified Code(s): A41.9 - Sepsis, unspecified organism Status: Acute Assessment and Plan: Pt present on admission with leukocytosis, tachycardia, tachypnea and RENETTA. BCx NGTD. UA not consistent with UTI. CXR 09/15 showing improvement. Consider MRSA PNA given that he was treated with Cefepime for 7 days prior to last discharge. Consider findings related to severe dehydration. Vanco started 09/13/20.(day # 9) and d/c 09/21 CXR 09/23 probable RML infiltrate. repeat blood 09/23 NG and repeated again today with temp spike. and urine culture pending With a temperature spike, leukocytosis , and chest x-ray finding restarted the Zosyn and vancomycin today (6) Acute respiratory failure with hypoxia: Code(s): J96.01 - Acute respiratory failure with hypoxia Status: Acute Assessment and Plan: Patient was on room air at last discharge on 09/08/20. ABG here showing 7.42/34/64 on RA. CXR 09/12 showing improving bilateral airspace disease. Vancomycin started for possible PNA. and stopped 09/21, COVID negative. CXR 09/23 probable new infiltrate. Remains on room air now. (7) RENETTA (acute kidney injury): Code(s): N17.9 - Acute kidney failure, unspecified Status: Acute Assessment and Plan: BUN 78 and Cr 5.2 on admission. [place] related to dehydration. IV fluids started and levels worsened to 102 and 7.8 respectfully on 09/15. Bicarb down but potassium normal. UOP still poor. Renal US normal. Honorio placed 09/15 and patient underwent HD. He tolerated this well. Nephrology following and repeat dialysis 09/21 , with elle
[2020-09-24] MEDS: rOPINIRole HCL 1 MG TABLET 2 MG PO (20:09)
[2020-09-25 05:23] VITALS: BP 110/71; PULSE 96; RESP 18; TEMP 37; O2SAT 96
[2020-09-25 05:52] LABS: Basophils Absolute Auto 0.1 K/mm3 (0.0-0.1); Basophils Percent Auto 0.5 % (0.2-1.2); Eosinophils Absolute Auto 0.1 K/mm3 (0-0.3); Eosinophils Percent Auto 0.4 % (0-4.4); Hematocrit 26.2 % (42.0-52.0); Hemoglobin 8.1 g/dL (14.0-18.0); Immature Granulocyte Absolute 0.15 K/mm3 (0.00-0.031); Immature Granulocyte Percent A 0.8 % (0-0.5); Lymphocytes Absolute Auto 1.27 K/mm3 (0.9-3.2); Lymphocytes Percent Auto 6.5 % (18.3-44.2); Mean Corpuscular HGB Conc 30.9 g/dl (32-36); Mean Corpuscular Hemoglobin 28.9 pg (26-34); Mean Corpuscular Volume 93.6 fl (80-100); Mean Platelet Volume 10.2 fl (7.4-10.4); Monocytes Absolute Auto 1.4 K/mm3 (0.1-0.6); Monocytes Percent Auto 7.1 % (2.6-8.5); Neutrophils Absolute Auto 16.6 K/mm3 (1.3-6.7); Neutrophils Percent Auto 84.7 % (45.5-73.1); Platelet Count Result 360 k/mm3 (150-375); Red Cell Distribution Width 14.6 % (11.5-14.5); White Blood Count 19.5 K/mm3 (4.5-10.0)
[2020-09-25 05:58] LABS: Anion Gap 9 mmol/L (8-16); Blood Urea Nitrogen 52 mg/dL (9-20); Calcium 8.5 mg/dL (8.4-10.2); Carbon Dioxide 34 mmol/L (22-30); Chloride 93 mmol/L (98-107); Estimated CRCL calculation 13 ml/min; Estimated Glomerular Filt Rate 13; Glucose 132 mg/dL (75-110); Potassium 4.3 mmol/L (3.4-5.0); Sodium 136 mmol/L (137-145)
[2020-09-25 08:17] VITALS: PULSE 96
[2020-09-25] MEDS: METOPROLOL SUCCINATE EXT REL 25 MG TABCR PO (08:17)
[2020-09-25] MEDS: ATORVASTATIN 40 MG TABLET PO (08:17)
[2020-09-25] MEDS: APIXABAN 5 MG TABLET PO ×2 (08:17→20:06)
[2020-09-25] MEDS: SOD HYPOCHLORITE 1/4 STRENGTH 473 ML 1 APPLIC TOPICAL ×2 (08:19→20:07)
[2020-09-25 11:08] VITALS: BMI 11.0
--- NOTE | 2020-09-25 11:41 | PCNFU ---
Nutrition Follow-Up Complete: Inadequate oral intake related to diet order as evidenced by NPO status. Goal: Patient to meet estimated nutritional needs. Progressing towards goal. We will continue current goal. Pt current nutrition is Renal Dialysis diet/soft and bite sized, Level 6 with Nepro BID . Nutrition recommendation: agree Last recorded weight is 91.8 kg. up from 88.5 kg on admit. Bowel Motility:+BM reported 09/18 Labs Reviewed:Glu 132,Cr 4.4,BUN 52,GFR 13,Na 136, Hct 26.2,Hgb 8.1 Meds Noted:Lipitor,Toprol,Zosyn,Heparin. Additional Notes: Nutrition follow up. Patient has been confused. Feeder. Oral Intake today about 30%-danish toast, peaches. apple juice-100%. diet supplements: Nepro BID providing an additional 425 kcals and 19 gms protein. PO intake encouraged. Monitoring: Follow up every 5 days.
--- NOTE | 2020-09-25 12:13 | P.PNNP_ITS ---
Progress Note: A&P Assessment and Plan (1) RENETTA (acute kidney injury): Code(s): N17.9 - Acute kidney failure, unspecified Status: Acute Assessment and Plan: * suspect ATN as etiology * renal ultrasound is negative * urine electrolytes are non pre renal. * urinalysis is bland but does show 2+ protein. * HD today and continue HD on M/W/F schedule for now * follow labs and UOP for renal recovery (2) Acute encephalopathy: Code(s): G93.40 - Encephalopathy, unspecified Status: Acute Assessment and Plan: * possibly due to underlying dementia * electrolytes are oka * follow mentation (3) Hypernatremia: Code(s): E87.0 - Hyperosmolality and hypernatremia Status: Acute Assessment and Plan: * resolved (4) Sepsis: Qualifiers: Sepsis acute organ dysfunction status: with acute organ dysfunction Sepsis type: sepsis due to unspecified organism Severe sepsis acute organ dysfunction type: encephalopathy Severe sepsis shock status: without septic shock Qualified Code(s): A41.9 - Sepsis, unspecified organism; R65.20 - Severe sepsis without septic shock; G93.40 - Encephalopathy, unspecified Code(s): A41.9 - Sepsis, unspecified organism Status: Acute Assessment and Plan: * repeat blood cultures with (1/2) with gran negative bacilli * pneumonia on chest x-ray * back on antibiotics * continue supportive therapy (5) Transaminitis: Code(s): R74.01 - Elevation of levels of liver transaminase levels Status: Acute Assessment and Plan: * suggest shock liver * enzyme levels are gradually improving Will continue to follow Subjective Date/time seen: 09/25/20 12:13 Tolerated dialysis yesterday without any issues although fluid removal was limited by hemodynamics; mentation seems about the same; still with intermittent fevers and blood cultures noted. Exam Narrative: Exam Narrative: General: Elderly male laying in bed and in NAD Heart: normal S1 and S2; no rub Lungs: clear anteriorly Abdomen: soft, nontender, nondistended, positive bowel sounds Extremities: no cyanosis or clubbing; no edema Skin: no rash or nodules Objective Data Vital Signs Vital Signs: Vital Signs Temp Pulse Resp BP Pulse Ox 09/25/20 14:46 37.4 C 111 H 18 91/53 L 95 12/22/20 08:17 96 09/25/20 05:23 37.0 C 96 18 110/71 96 Intake/Output Intake/Output: Intake & Output 09/23/20 09/24/20 09/25/20 09/26/20 23:59 23:59 23:59 23:59 Intake Total 102 281 7319 Output Total 500 1750 150 Balance 280 -970 1440 Meds/Results Medications: Active Medications Generic Name Dose Route Start Last Admin Trade Name Freq PRN Reason Stop Dose Admin Acetaminophen 650 mg 09/17/20 19:56 09/25/20 19:42 Acetaminophen 325 Mg Tablet PO 650 mg Q4H PRN Administration Mild Pain (1-3) Or Fever Apixaban 5 mg 09/21/20 09:00 09/25/20 20:06 Apixaban 5 Mg Tablet PO 5 mg Q12HR ANABEL Administration Aspirin 81 mg 09/26/20 08:00 Aspirin 81 Mg Chewable Tablet PO DAILY@0800 ANABEL Atorvastatin Calcium 40 mg 09/24/20 09:00 09/25/20 08:17 Atorvastatin 40 Mg Tablet PO 40 mg DAILY ANABEL Administration Heparin S
--- NOTE | 2020-09-25 12:13 | PM.PNNEP ---
Progress Note: A&P Assessment and Plan (1) RENETTA (acute kidney injury): Code(s): N17.9 - Acute kidney failure, unspecified Status: Acute Assessment and Plan: suspect ATN as etiology renal ultrasound is negative urine electrolytes are non pre renal. urinalysis is bland but does show 2+ protein. HD today and continue HD on M/W/F schedule for now follow labs and UOP for renal recovery (2) Acute encephalopathy: Code(s): G93.40 - Encephalopathy, unspecified Status: Acute Assessment and Plan: possibly due to underlying dementia electrolytes are oka follow mentation (3) Hypernatremia: Code(s): E87.0 - Hyperosmolality and hypernatremia Status: Acute Assessment and Plan: resolved (4) Sepsis: Qualifiers: Sepsis acute organ dysfunction status: with acute organ dysfunction Sepsis type: sepsis due to unspecified organism Severe sepsis acute organ dysfunction type: encephalopathy Severe sepsis shock status: without septic shock Qualified Code(s): A41.9 - Sepsis, unspecified organism; R65.20 - Severe sepsis without septic shock; G93.40 - Encephalopathy, unspecified Code(s): A41.9 - Sepsis, unspecified organism Status: Acute Assessment and Plan: repeat blood cultures with (1/2) with gran negative bacilli pneumonia on chest x-ray back on antibiotics continue supportive therapy (5) Transaminitis: Code(s): R74.01 - Elevation of levels of liver transaminase levels Status: Acute Assessment and Plan: suggest shock liver enzyme levels are gradually improving Will continue to follow Subjective Date/time seen: 09/25/20 12:13 Tolerated dialysis yesterday without any issues although fluid removal was limited by hemodynamics; mentation seems about the same; still with intermittent fevers and blood cultures noted. Exam Narrative: Exam Narrative: General: Elderly male laying in bed and in NAD Heart: normal S1 and S2; no rub Lungs: clear anteriorly Abdomen: soft, nontender, nondistended, positive bowel sounds Extremities: no cyanosis or clubbing; no edema Skin: no rash or nodules Objective Data Vital Signs Vital Signs: Vital Signs Temp Pulse Resp BP Pulse Ox 09/25/20 14:46 37.4 C 111 H 18 91/53 L 95 09/25/20 08:17 96 09/25/20 05:23 37.0 C 96 18 110/71 96 Intake/Output Intake/Output: Intake & Output 09/23/20 09/24/20 09/25/20 09/26/20 23:59 23:59 23:59 23:59 Intake Total 815 656 6101 Output Total 500 1750 150 Balance 280 -970 1440 Meds/Results Medications: Active Medications Generic Name Dose Route Start Last Admin Trade Name Freq PRN Reason Stop Dose Admin Acetaminophen 650 mg 09/17/20 19:56 09/25/20 19:42 Acetaminophen 325 Mg Tablet PO 650 mg Q4H PRN Administration Mild Pain (1-3) Or Fever Apixaban 5 mg 09/21/20 09:00 09/25/20 20:06 Apixaban 5 Mg Tablet PO 5 mg Q12HR ANABEL Administration Aspirin 81 mg 09/26/20 08:00 Aspirin 81 Mg Chewable Tablet PO DAILY@0800 ANABEL Atorvastatin Calcium 40 mg 09/24/20 09:00 09/25/20 08:17 Atorvastatin 40 Mg Tablet PO 40 mg DAILY ANABEL Administration Heparin Sodium (Porcine) 5,000 units 09/20/20 16:40 Heparin Sodium 5,000 Units/Ml Vial IRRIGATION ONCE ANABEL Piperacillin Sod/Tazobactam Sod 2.25 gm in 50 mls @ 100 mls/hr 09/24/20 14:00 09/25/20 21:34 Zosyn 2.25 Gm/D5w 50 Ml IVPB Infused Q8H ANABEL Infusion Metoprolol Succinate 25 mg 09/19/20 09:00 09/25/20 08:17 Metoprolol Succinate Ext Rel 25 Mg Tabcr PO 25 mg QAM ANABEL Administration Ondansetron HCl 4 mg 09/12/20 23:49 Ondansetron Inj 4 Mg/2 Ml Vial IV PUSH Q4H PRN Nausea Ropinirole HCl 2 mg 09/17/20 21:00 09/25/20 20:05 Ropinirole Hcl 1 Mg Tablet PO 2 mg HS ANABEL Administration Sodium Chloride 20 ml 09/15/20 14:22 09/20/20 12:17 Central Line Flush IV PUSH 20
--- NOTE | 2020-09-25 13:52 | PM.IMPN ---
Progress Note: A&P Assessment and Plan (1) Paroxysmal atrial fibrillation: Code(s): I48.0 - Paroxysmal atrial fibrillation Status: Acute Assessment and Plan: Patient has developed intermittent AFib. Probably related to the cardiomyopathy but had recent DVT over a month ago and anticoagulated so doubt PE. Metoprolol started. Back on Eliquis and off IV heparin 09/21 with tunnel cath placed 09/20. (2) Acute encephalopathy: Code(s): G93.40 - Encephalopathy, unspecified Status: Acute Assessment and Plan: Patient with acute encephalopathy related to the RENETTA and uremia. Patient is confused at baseline. He had a CT brain on admission showing no acute findings. He had a recent MRI brain last admission also showing no acute findings. Encephalopathy symptoms improved some since resolution of the hypernatremia and with HD. Patient probably at baseline. (3) NSTEMI (non-ST elevated myocardial infarction): Code(s): I21.4 - Non-ST elevation (NSTEMI) myocardial infarction Status: Acute Assessment and Plan: Troponin 5.9 on admission and have been trending down. EKG showing no acute findings. Echo showing EF 20% and grade I diastolic dysfunction but no mention of wall motion abnormalities. Cardiology feels no CO.. Toprol XL added. Hold on BRAD inhibitors for now with renal function and lower bp. Continue Lipitor. Aspirin? (4) Cardiomyopathy: Code(s): I42.9 - Cardiomyopathy, unspecified Status: Acute Assessment and Plan: Echo 09/14 showing LV chamber dimension moderately enlarged with severely reduced systolic function (EF 20-25%). Grade I diastolic dysfunction present as well. No old Echo but informed the EF is depressed chronically but not to this extent. Could be related to the renal failure . As above. beta alma and control fluid with dialysis (5) Sepsis: Qualifiers: Sepsis acute organ dysfunction status: with acute organ dysfunction Sepsis type: sepsis due to unspecified organism Severe sepsis acute organ dysfunction type: encephalopathy Severe sepsis shock status: without septic shock Qualified Code(s): A41.9 - Sepsis, unspecified organism; R65.20 - Severe sepsis without septic shock; G93.40 - Encephalopathy, unspecified Code(s): A41.9 - Sepsis, unspecified organism Status: Acute Assessment and Plan: Pt present on admission with leukocytosis, tachycardia, tachypnea and RENETTA. BCx NGTD. UA not consistent with UTI. CXR 09/15 showing improvement. Consider MRSA PNA given that he was treated with Cefepime for 7 days prior to last discharge. Consider findings related to severe dehydration. Vanco started 09/13/20 (day # 9) and d/c 09/21. CXR 09/23 probable RML infiltrate. Still having intermittent fevers. UCx 09/23 pending. BCx 09/23 NGTD. BCx 09/24 (1of2) growing GNB now. Will continue Zosyn and vancomycin and follow for now (6) Acute respiratory failure with hypoxia: Code(s): J96.01 - Acute respiratory failure with hypoxia Status: Acute Assessment and Plan: Patient was on room air at last discharge on 09/08/20. ABG here showing 7.42/34/64 on RA. CXR 09/12 showing improving bilateral airspace disease. Vancomycin started for possible PNA and stopped 09/21. COVID negative. CXR 09/23 probable new infiltrate. Remains on room air now. (7) RENETTA (acute kidney injury): Code(s): N17.9 - Acute kidney failure, unspecified Status: Acute Assessment and Plan: BUN 78 and Cr 5.2 on admission. [place] related to dehydration. IV fluids started and levels worsened to 102 and 7.8 respectfully on 09/15. UOP still poor. Renal US normal. Honorio placed 09/15 and patient underwent HD. He tolerated this well. Tunnel cath placed 09/20. Now having HD M/W/. Care coordination was scheduling for Thursday on potential discharge. Nephrology following. (8) Leukocytosi
[2020-09-25 14:46] VITALS: BP 91/53; PULSE 111; RESP 18; TEMP 37.4; O2SAT 95
[2020-09-25 19:23] VITALS: BP 123/60; PULSE 107; RESP 20; TEMP 38.9; O2SAT 96
[2020-09-25 19:42] VITALS: TEMP 38.9
[2020-09-25] MEDS: ACETAMINOPHEN 325 MG TABLET 650 MG PO (19:42)
[2020-09-25] MEDS: rOPINIRole HCL 1 MG TABLET 2 MG PO (20:05)
[2020-09-25 20:42] VITALS: TEMP 37.2
[2020-09-26] VITALS (22 sets, daily range): BP systolic 83–126; BP diastolic 35–59; PULSE 69–104; RESP 18–24; TEMP 36.8–38.1; O2SAT 94–100
[2020-09-26 05:44] LABS: Basophils Absolute Auto 0.1 K/mm3 (0.0-0.1); Basophils Percent Auto 0.4 % (0.2-1.2); Eosinophils Absolute Auto 0.2 K/mm3 (0-0.3); Eosinophils Percent Auto 1.2 % (0-4.4); Hematocrit 24.9 % (42.0-52.0); Hemoglobin 7.7 g/dL (14.0-18.0); Immature Granulocyte Absolute 0.15 K/mm3 (0.00-0.031); Immature Granulocyte Percent A 0.8 % (0-0.5); Lymphocytes Percent Auto 7.6 % (18.3-44.2); Mean Corpuscular HGB Conc 30.9 g/dl (32-36); Mean Corpuscular Hemoglobin 28.5 pg (26-34); Mean Corpuscular Volume 92.2 fl (80-100); Mean Platelet Volume 9.9 fl (7.4-10.4); Monocytes Absolute Auto 1.2 K/mm3 (0.1-0.6); Monocytes Percent Auto 6.2 % (2.6-8.5); Neutrophils Absolute Auto 16.6 K/mm3 (1.3-6.7); Neutrophils Percent Auto 83.8 % (45.5-73.1); Platelet Count Result 380 k/mm3 (150-375); Red Cell Distribution Width 14.7 % (11.5-14.5); White Blood Count 19.8 K/mm3 (4.5-10.0)
[2020-09-26 06:03] LABS: Alanine Aminotransferase 116 U/L (4-50); Albumin Level 3.3 g/dL (3.5-5.1); Alkaline Phosphatase 129 U/L (38-126); Anion Gap 13 mmol/L (8-16); Aspartate Amino Transferase 111 U/L (17-59); Bilirubin,Total 0.6 mg/dL (0.2-1.3); Blood Urea Nitrogen 70 mg/dL (9-20); Calcium 8.6 mg/dL (8.4-10.2); Carbon Dioxide 31 mmol/L (22-30); Chloride 91 mmol/L (98-107); Estimated CRCL calculation 10 ml/min; Estimated Glomerular Filt Rate 9; Glucose 125 mg/dL (75-110); Magnesium 2.2 mg/dL (1.6-2.3); Phosphorus 5.8 mg/dL (2.5-4.5); Potassium 4.3 mmol/L (3.4-5.0); Sodium 135 mmol/L (137-145)
[2020-09-26 06:09] LABS: CRP 26.9 mg/dL (<1.0)
[2020-09-26] MEDS: METOPROLOL SUCCINATE EXT REL 25 MG TABCR PO (08:14)
[2020-09-26] MEDS: ASPIRIN 81 MG CHEWABLE TABLET PO (08:14)
[2020-09-26] MEDS: APIXABAN 5 MG TABLET PO ×2 (08:14→20:31)
[2020-09-26] MEDS: ATORVASTATIN 40 MG TABLET PO (08:17)
[2020-09-26] MEDS: SOD HYPOCHLORITE 1/4 STRENGTH 473 ML 1 APPLIC TOPICAL ×2 (08:17→20:31)
--- NOTE | 2020-09-26 08:50 | PC.NURSE ---
Pt to dialysis per bed. Report to TRAVIS Wallace.
[2020-09-26] MEDS: EPOETIN ALFA-EPBX 10,000 UNITS/ML VIAL 10000 UNITS IV PUSH (10:53)
[2020-09-26] MEDS: ALBUMIN HUMAN 25% 12.5 GM/50ML 50 ML IVPB (11:17)
[2020-09-26] MEDS: HEPARIN SODIUM 1,000 UNITS/ML VIAL 1000 UNITS IV PUSH (12:49)
--- NOTE | 2020-09-26 12:56 | PC.NURSE ---
Pt returned from dialysis per bed. Report received from TRAVIS Wallace.
[2020-09-26] MEDS: ACETAMINOPHEN 325 MG TABLET 650 MG PO ×2 (13:28→20:32)
--- NOTE | 2020-09-26 14:03 | P.PNNP_ITS ---
Progress Note: A&P Assessment and Plan (1) RENETTA (acute kidney injury): Code(s): N17.9 - Acute kidney failure, unspecified Status: Acute Assessment and Plan: * suspect ATN as etiology * renal ultrasound is negative * urine electrolytes are non pre renal. * urinalysis is bland but does show 2+ protein. * HD today * Volume status looks okay. * Serum electrolytes are okay (2) Acute encephalopathy: Code(s): G93.40 - Encephalopathy, unspecified Status: Acute Assessment and Plan: * possibly due to underlying dementia * electrolytes are okay * follow mentation (3) Hypernatremia: Code(s): E87.0 - Hyperosmolality and hypernatremia Status: Acute Assessment and Plan: * resolved (4) Sepsis: Qualifiers: Sepsis type: sepsis due to unspecified organism Sepsis acute organ dysfunction status: with acute organ dysfunction Severe sepsis acute organ dysfunction type: encephalopathy Severe sepsis shock status: without septic shock Qualified Code(s): A41.9 - Sepsis, unspecified organism; R65.20 - Severe sepsis without septic shock; G93.40 - Encephalopathy, unspecified Code(s): A41.9 - Sepsis, unspecified organism Status: Acute Assessment and Plan: * Blood cultures show: 2/2 Negative on 09/23 1/2 positive for Proteus on 09/24 Two more obtained today. * If repeat cultures positive then consider removing the hemo catheter. * Pneumonia on chest x-ray * On Zosyn * continue supportive therapy (5) Transaminitis: Code(s): R74.01 - Elevation of levels of liver transaminase levels Status: Acute Assessment and Plan: * suggest shock liver * Ammonia level okay * enzyme levels were normal. Today mildly positive. Repeat again tomorrow. Subjective Date/time seen: 09/26/20 14:03 Interval history: Patient just finished dialysis. Not much fluid removed because of blood pressure. Review of Systems Cardiovascular: Cardiovascular: Reports no additional cardiovascular complaints Respiratory: Respiratory: Reports no additional respiratory complaints Gastrointestinal: Gastrointestinal: Reports no additional gastrointestinal complaints Genitourinary: Genitourinary: Reports no additional male genitourinary complaints Exam Narrative: Exam Narrative: General: Elderly male laying in bed and in NAD Heart: normal S1 and S2; no rub Lungs: clear anteriorly Abdomen: soft, nontender, nondistended, positive bowel sounds Extremities: no cyanosis or clubbing; no edema Skin: no rash Objective Data Vital Signs Vital Signs: Vital Signs - 24 hr 09/25/20 14:46 09/25/20 19:23 09/25/20 19:42 Temperature 37.4 C 38.9 C H 38.9 C H Pulse Rate 111 H 107 H Respiratory Rate 18 20 Blood Pressure 91/53 L 123/60 Pulse Oximetry 95 96 09/25/20 20:42 09/26/20 08:14 09/26/20 08:58 Temperature 37.2 C 38.1 C H Pulse Rate 86 89 Respiratory Rate 24 H Blood Pressure 101/35 L Pulse Oximetry 09/26/20 09:07 09/26/20 09:15 09/26/20 09:30 Temperature Pulse Rate 102 H 99 102 H Respiratory Rate Blood Pressure 98/43 L 98/36 L 96/52 L Pulse Oximetry 09/26/20 09:45 09/26/20
--- NOTE | 2020-09-26 14:03 | PM.PNNEP ---
Progress Note: A&P Assessment and Plan (1) RENETTA (acute kidney injury): Code(s): N17.9 - Acute kidney failure, unspecified Status: Acute Assessment and Plan: suspect ATN as etiology renal ultrasound is negative urine electrolytes are non pre renal. urinalysis is bland but does show 2+ protein. HD today Volume status looks okay. Serum electrolytes are okay (2) Acute encephalopathy: Code(s): G93.40 - Encephalopathy, unspecified Status: Acute Assessment and Plan: possibly due to underlying dementia electrolytes are okay follow mentation (3) Hypernatremia: Code(s): E87.0 - Hyperosmolality and hypernatremia Status: Acute Assessment and Plan: resolved (4) Sepsis: Qualifiers: Sepsis type: sepsis due to unspecified organism Sepsis acute organ dysfunction status: with acute organ dysfunction Severe sepsis acute organ dysfunction type: encephalopathy Severe sepsis shock status: without septic shock Qualified Code(s): A41.9 - Sepsis, unspecified organism; R65.20 - Severe sepsis without septic shock; G93.40 - Encephalopathy, unspecified Code(s): A41.9 - Sepsis, unspecified organism Status: Acute Assessment and Plan: Blood cultures show: 2/2 Negative on 09/23 1/2 positive for Proteus on 09/24 Two more obtained today. If repeat cultures positive then consider removing the hemo catheter. Pneumonia on chest x-ray On Zosyn continue supportive therapy (5) Transaminitis: Code(s): R74.01 - Elevation of levels of liver transaminase levels Status: Acute Assessment and Plan: suggest shock liver Ammonia level okay enzyme levels were normal. Today mildly positive. Repeat again tomorrow. Subjective Date/time seen: 09/26/20 14:03 Interval history: Patient just finished dialysis. Not much fluid removed because of blood pressure. Review of Systems Cardiovascular: Cardiovascular: Reports no additional cardiovascular complaints Respiratory: Respiratory: Reports no additional respiratory complaints Gastrointestinal: Gastrointestinal: Reports no additional gastrointestinal complaints Genitourinary: Genitourinary: Reports no additional male genitourinary complaints Exam Narrative: Exam Narrative: General: Elderly male laying in bed and in NAD Heart: normal S1 and S2; no rub Lungs: clear anteriorly Abdomen: soft, nontender, nondistended, positive bowel sounds Extremities: no cyanosis or clubbing; no edema Skin: no rash Objective Data Vital Signs Vital Signs: Vital Signs - 24 hr 09/25/20 14:46 09/25/20 19:23 09/25/20 19:42 Temperature 37.4 C 38.9 C H 38.9 C H Pulse Rate 111 H 107 H Respiratory Rate 18 20 Blood Pressure 91/53 L 123/60 Pulse Oximetry 95 96 09/25/20 20:42 09/26/20 08:14 09/26/20 08:58 Temperature 37.2 C 38.1 C H Pulse Rate 86 89 Respiratory Rate 24 H Blood Pressure 101/35 L Pulse Oximetry 09/26/20 09:07 09/26/20 09:15 09/26/20 09:30 Temperature Pulse Rate 102 H 99 102 H Respiratory Rate Blood Pressure 98/43 L 98/36 L 96/52 L Pulse Oximetry 09/26/20 09:45 09/26/20 10:00 09/26/20 10:15 Temperature Pulse Rate 104 H 79 94 Respiratory Rate Blood Pressure 100/53 L 101/59 L 101/55 L Pulse Oximetry 09/26/20 10:30 09/26/20 10:45 09/26/20 11:00 Temperature Pulse Rate 89 100 69 Respiratory Rate Blood Pressure 126/52 L 87/46 L 84/36 L Pulse Oximetry 09/26/20 11:15 09/26/20 11:30 09/26/20 11:45 Temperature Pulse Rate 97 100 97 Respiratory Rate Blood Pressure 83/41 L 88/43 L 92/42 L Pulse Oximetry 09/26/20 12:00 09/26/20 12:08 09/26/20 12:15 Temperature 37.7 C H Pulse Rate 102 H 101 H 101 H Respiratory Rate 24 H Blood Pressure 91/42 L 90/47 L 98/44 L Pulse Oximetry 09/26/20 13:28 Temperature 37.7 C H Pulse Rate Respiratory Rate Blood Pressure Pulse Oxim
--- NOTE | 2020-09-26 15:07 | PM.IMPN ---
Progress Note: A&P Assessment and Plan (1) Sepsis: Qualifiers: Sepsis acute organ dysfunction status: with acute organ dysfunction Sepsis type: sepsis due to unspecified organism Severe sepsis acute organ dysfunction type: encephalopathy Severe sepsis shock status: without septic shock Qualified Code(s): A41.9 - Sepsis, unspecified organism; R65.20 - Severe sepsis without septic shock; G93.40 - Encephalopathy, unspecified Code(s): A41.9 - Sepsis, unspecified organism Status: Acute Assessment and Plan: Pt present on admission with leukocytosis, tachycardia, tachypnea and RENETTA. BCx NGTD. UA on admission not consistent with UTI. CXR 09/15 showing improvement. Consider MRSA PNA given that he was treated with Cefepime for 7 days prior to last discharge. Consider findings related to severe dehydration. Vanco started 09/13/20 and d/c 09/21. CXR 09/23 probable RML infiltrate. Still having intermittent fevers related to now positive BCx. UCx 09/23 growing Mala. BCx 09/23 NGTD. BCx 09/24 (1of2) growing Proteus now. BCx 09/26 pending. Will continue Zosyn. Consider Diflucan. Change to Primaxin if WBC higher, fever persistetn or sensitivities return showing resistance Discussed with family friend. has dementia. Spoke with son later in the day (2) Decubital ulcer: Code(s): L89.90 - Pressure ulcer of unspecified site, unspecified stage Status: Chronic Assessment and Plan: Coccyx pressure ulcer with necrotic wound and bone exposed. General surgery to see for debridement. Contineu wound care. Continue IV abx. (3) Paroxysmal atrial fibrillation: Code(s): I48.0 - Paroxysmal atrial fibrillation Status: Acute Assessment and Plan: Patient has developed intermittent AFib. Probably related to the cardiomyopathy but had recent DVT over a month ago and anticoagulated so doubt PE. Metoprolol started. Back on Eliquis and off IV heparin 09/21 with tunnel cath placed 09/20. (4) Acute encephalopathy: Code(s): G93.40 - Encephalopathy, unspecified Status: Acute Assessment and Plan: Patient with acute encephalopathy related to the RENETTA and uremia. Patient is confused at baseline. He had a CT brain on admission showing no acute findings. He had a recent MRI brain last admission also showing no acute findings. Encephalopathy symptoms improved some since resolution of the hypernatremia and with HD. Patient probably at baseline. (5) Elevated troponin: Code(s): R77.8 - Other specified abnormalities of plasma proteins Status: Acute Assessment and Plan: Cardiology feels no CT.. Troponin 5.9 on admission and have been trending down. EKG showing no acute findings. Echo showing EF 20% and grade I diastolic dysfunction but no mention of wall motion abnormalities. Lipitor and Toprol XL added. Hold on BRAD inhibitors for now with renal function and lower bp. (6) Cardiomyopathy: Code(s): I42.9 - Cardiomyopathy, unspecified Status: Acute Assessment and Plan: Echo 09/14 showing LV chamber dimension moderately enlarged with severely reduced systolic function (EF 20-25%). Grade I diastolic dysfunction present as well. No old Echo but informed the EF is depressed chronically but not to this extent. Could be related to the renal failure . Continue Toprol and control fluid with dialysis (7) Acute respiratory failure with hypoxia: Code(s): J96.01 - Acute respiratory failure with hypoxia Status: Acute Assessment and Plan: Patient was on room air at last discharge on 09/08/20. ABG here showing 7.42/34/64 on RA. CXR 09/12 showing improving bilateral airspace disease. Vancomycin started for possible PNA and stopped 09/21. COVID negative. CXR 09/23 probable new infiltrate. Remains on room air now. (8) RENETTA (acute kidney injury): Code(s): N17.9 - Acute kidney failure, unspecified
[2020-09-26] MEDS: rOPINIRole HCL 1 MG TABLET 2 MG PO (20:31)
[2020-09-27 04:34] VITALS: BP 109/55; PULSE 91; RESP 16; TEMP 36.5; O2SAT 96
[2020-09-27 06:43] LABS: Basophils Absolute Auto 0.1 K/mm3 (0.0-0.1); Basophils Percent Auto 0.5 % (0.2-1.2); Eosinophils Absolute Auto 0.4 K/mm3 (0-0.3); Eosinophils Percent Auto 2.5 % (0-4.4); Hematocrit 24.2 % (42.0-52.0); Hemoglobin 7.3 g/dL (14.0-18.0); Immature Granulocyte Absolute 0.12 K/mm3 (0.00-0.031); Immature Granulocyte Percent A 0.8 % (0-0.5); Lymphocytes Absolute Auto 1.19 K/mm3 (0.9-3.2); Lymphocytes Percent Auto 7.6 % (18.3-44.2); Mean Corpuscular HGB Conc 30.2 g/dl (32-36); Mean Corpuscular Hemoglobin 28.7 pg (26-34); Mean Corpuscular Volume 95.3 fl (80-100); Mean Platelet Volume 10.3 fl (7.4-10.4); Monocytes Absolute Auto 1.1 K/mm3 (0.1-0.6); Monocytes Percent Auto 6.7 % (2.6-8.5); Neutrophils Absolute Auto 12.9 K/mm3 (1.3-6.7); Neutrophils Percent Auto 81.9 % (45.5-73.1); Platelet Count Result 351 k/mm3 (150-375); Red Blood Count 2.54 M/mm3 (4.6-6.20); Red Cell Distribution Width 14.8 % (11.5-14.5); White Blood Count 15.7 K/mm3 (4.5-10.0)
[2020-09-27 07:13] LABS: Alanine Aminotransferase 111 U/L (4-50); Albumin Level 3.2 g/dL (3.5-5.1); Alkaline Phosphatase 123 U/L (38-126); Anion Gap 8 mmol/L (8-16); Aspartate Amino Transferase 108 U/L (17-59); Bilirubin,Total 0.5 mg/dL (0.2-1.3); Blood Urea Nitrogen 44 mg/dL (9-20); Calcium 8.6 mg/dL (8.4-10.2); Carbon Dioxide 33 mmol/L (22-30); Chloride 96 mmol/L (98-107); Estimated CRCL calculation 12 ml/min; Estimated Glomerular Filt Rate 12; Glucose 119 mg/dL (75-110); Potassium 4.1 mmol/L (3.4-5.0); Sodium 137 mmol/L (137-145)
[2020-09-27 08:56] VITALS: PULSE 57
[2020-09-27] MEDS: METOPROLOL SUCCINATE EXT REL 25 MG TABCR PO (08:56)
[2020-09-27] MEDS: APIXABAN 5 MG TABLET PO ×2 (08:56→20:50)
[2020-09-27] MEDS: ATORVASTATIN 40 MG TABLET PO (08:56)
[2020-09-27] MEDS: ASPIRIN 81 MG CHEWABLE TABLET PO (08:56)
[2020-09-27] MEDS: SOD HYPOCHLORITE 1/4 STRENGTH 473 ML 1 APPLIC TOPICAL ×2 (08:57→20:50)
--- NOTE | 2020-09-27 10:06 | PCOTNOTE ---
Attempted to see pt this AM, however, pt refused stating this is a bad morning. When therapist discussed with pt to attempt later today, pt verbally stated No . RN informed of pt's refusal, stating that she was not surprised. Will continue per POC duration/frequency.
--- NOTE | 2020-09-27 10:59 | PM.CNGS ---
Assessment and Plan Assessment and plan (1) Decubital ulcer: Qualifiers: Pressure injury location: sacral region Pressure injury stage: unstageable Qualified Code(s): L89.150 - Pressure ulcer of sacral region, unstageable Code(s): L89.90 - Pressure ulcer of unspecified site, unspecified stage Status: Chronic Assessment and Plan: Patient with a sacral decubitus ulcer. There is no abscess or purulent drainage. This ulcer does not appear to be the source of his fevers or sepsis. The wound appears stable and seems to be responding well to local wound care. I discussed the patient's case and plan of care with Dr. Valdovinos. We would recommend continuing the Dakin's 10/08 strength dressing changes and monitoring. Continue to turn frequently and minimize pressure to this area. There is no plan for surgical debridement. Thank you for allowing us to see the patient in consultation and we will continue to follow along with you. (2) Parkinsons: Code(s): G20 - Parkinson's disease Status: Chronic (3) Acute renal failure: Qualifiers: Acute renal failure type: unspecified Qualified Code(s): N17.9 - Acute kidney failure, unspecified Code(s): N17.9 - Acute kidney failure, unspecified Status: Acute Assessment and Plan: Nephrology following. Tunnelled dialysis catheter in place for dialysis. HD yesterday. (4) Sepsis: Qualifiers: Sepsis type: sepsis due to unspecified organism Sepsis acute organ dysfunction status: with acute organ dysfunction Severe sepsis acute organ dysfunction type: encephalopathy Severe sepsis shock status: without septic shock Qualified Code(s): A41.9 - Sepsis, unspecified organism; R65.20 - Severe sepsis without septic shock; G93.40 - Encephalopathy, unspecified Code(s): A41.9 - Sepsis, unspecified organism Status: Acute Assessment and Plan: The sacral decubitus ulcer does not appear to be the source of sepsis/fevers. Continue broad-spectrum IV antibiotics and management per Hospitalist. (5) Encephalopathy: Code(s): G93.40 - Encephalopathy, unspecified Status: Acute (6) Paroxysmal atrial fibrillation: Code(s): I48.0 - Paroxysmal atrial fibrillation Status: Acute (7) Cardiomyopathy: Code(s): I42.9 - Cardiomyopathy, unspecified Status: Acute (8) Acute respiratory failure with hypoxia: Code(s): J96.01 - Acute respiratory failure with hypoxia Status: Acute (9) CAD (coronary artery disease): Code(s): I25.10 - Atherosclerotic heart disease of [place] coronary artery without angina pectoris Status: Acute (10) Leukocytosis: Qualifiers: Leukocytosis type: unspecified Qualified Code(s): D72.829 - Elevated white blood cell count, unspecified Code(s): D72.829 - Elevated white blood cell count, unspecified Status: Acute (11) 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 fib and right leg DVT. On Eliquis. Management per Hospitalist. No plans for surgical intervention. (12) Chronic anemia: Code(s): D64.9 - Anemia, unspecified Status: Chronic (13) Hypernatremia: Code(s): E87.0 - Hyperosmolality and hypernatremia Status: Acute (14) Right leg DVT: Qualifiers: Affected thrombotic vein of extremity: unspecified vein of extremity Chronicity: acute Qualified Code(s): I82.401 - Acute embolism and thrombosis of unspecified deep veins of right lower extremity Code(s): I82.401 - Acute embolism and thrombosis of unspecified deep veins of right lower extremity Status: Acute (15) Hematoma of left knee region: Code(s): S80.02XA - Contusion of left knee, initial encounter Status: Acute (16) Hypertension: Qualifiers: Hypertension type: unspecified Qualified Code(s):
--- NOTE | 2020-09-27 11:14 | PM.PNGS ---
Progress Note: A&P Assessment and Plan (1) Decubital ulcer: Qualifiers: Pressure injury location: sacral region Pressure injury stage: unstageable Qualified Code(s): L89.150 - Pressure ulcer of sacral region, unstageable Code(s): L89.90 - Pressure ulcer of unspecified site, unspecified stage Status: Chronic Assessment and Plan: responding well to Dakin solution dressing changes. Will be very difficult to heal. No evidence of abscess or soft tissue infection to explain sepsis and fever. Does not need debridement. Will continue to follow. (2) Parkinsons: Code(s): G20 - Parkinson's disease Status: Chronic Subjective Subjective Date/Time Seen: 09/27/20 11:14 Patient reports: other ( Patient confused. Seen regarding sacral decubitus. Has multiple medical problems.) Review of Systems Review of Systems: ROS unobtainable: Yes unobtainable due to mental status Exam Back/Spine/Pelvis: Back: No erythema, No warmth and other ( None stage bowl 14 x 13 cm pressure ulcer ) Sacrum: no erythema, tenderness and other ( decubitus shows good granulation tissue around edges, dry eschar center) Other: dry eschar center of decubitus but no evidence of underlying abscess or soft tissue infection Objective Data Vital Signs Vital Signs: Vital Signs - 24 hr 09/26/20 11:15 09/26/20 11:30 09/26/20 11:45 Temperature Pulse Rate 97 100 97 Respiratory Rate Blood Pressure 83/41 L 88/43 L 92/42 L Pulse Oximetry 09/26/20 12:00 09/26/20 12:08 09/26/20 12:15 Temperature 37.7 C H Pulse Rate 102 H 101 H 101 H Respiratory Rate 24 H Blood Pressure 91/42 L 90/47 L 98/44 L Pulse Oximetry 09/26/20 13:28 09/26/20 14:00 09/26/20 14:27 Temperature 37.7 C H 37.3 C 37.3 C Pulse Rate 103 H Respiratory Rate 20 Blood Pressure 94/47 L Pulse Oximetry 94 09/26/20 20:09 09/27/20 04:34 09/27/20 08:56 Temperature 37.6 C 36.5 C Pulse Rate 101 H 91 57 L Respiratory Rate 18 16 Blood Pressure 120/59 L 109/55 L Pulse Oximetry 100 96 Intake/Output Intake/Output: Intake & Output 09/24/20 09/25/20 09/26/20 09/27/20 23:59 23:59 23:59 23:59 Intake Total 780 1590 1160 Output Total 1750 150 450 50 Balance -970 1440 710 -50 Meds/Results Medications: Active Medications Generic Name Dose Route Start Last Admin Trade Name Freq PRN Reason Stop Dose Admin Acetaminophen 650 mg 09/17/20 19:56 09/26/20 20:32 Acetaminophen 325 Mg Tablet PO 650 mg Q4H PRN Administration Mild Pain (1-3) Or Fever Apixaban 5 mg 09/21/20 09:00 09/27/20 08:56 Apixaban 5 Mg Tablet PO 5 mg Q12HR ANABEL Administration Aspirin 81 mg 09/26/20 08:00 09/27/20 08:56 Aspirin 81 Mg Chewable Tablet PO 81 mg DAILY@0800 ANABEL Administration Atorvastatin Calcium 40 mg 09/24/20 09:00 09/27/20 08:56 Atorvastatin 40 Mg Tablet PO 40 mg DAILY ANABEL Administration Heparin Sodium (Porcine) 5,000 units 09/20/20 16:40 Heparin Sodium 5,000 Units/Ml Vial IRRIGATION ONCE ANABEL Piperacillin Sod/Tazobactam Sod 2.25 gm in 50 mls @ 100 mls/hr 09/24/20 14:00 09/27/20 05:15 Zosyn 2.25 Gm/D5w 50 Ml IVPB 100 mls/hr Q8H ANABEL Administration Albumin Human 50 mls @ 999 mls/hr 09/26/20 04:58 09/26/20 11:17 Albutein IVPB 10/26/20 04:59 999 mls/hr Q10M PRN Administration HYPOTENSION Metoprolol Succinate 25 mg 09/19/20 09:00 09/27/20 08:56 Metoprolol Succinate Ext Rel 25 Mg Tabcr PO 25 mg QAM ANABEL Administration Miconazole Nitrate 1 applic 09/26/20 21:00 09/27/20 08:57 Miconazole 2% Antifungal Ointment 56 Gm TOPICAL 1 applic Q12HR ANABEL Administration Ondansetron HCl 4 mg 09/12/20 23:49 Ondansetron Inj 4 Mg/2 Ml Vial IV PUSH Q4H PRN Nausea Ropinirole HCl 2 mg 09/17/20 21:00 09/26/20 20:31 Ropinirole Hcl 1 Mg Tablet PO 2 mg HS ANABEL Administration Sodium Chloride 20 ml 09/15/20 14:22 09/20/20 12:17
--- NOTE | 2020-09-27 12:23 | P.PNNP_ITS ---
Progress Note: A&P Assessment and Plan (1) RENETTA (acute kidney injury): Code(s): N17.9 - Acute kidney failure, unspecified Status: Acute Assessment and Plan: * suspect ATN as etiology * renal ultrasound is negative * urine electrolytes are non pre renal. * urinalysis is bland but does show 2+ protein. * HD will be done on Thursday. * Volume status looks okay. * Serum electrolytes are okay * His creatinine rises between treatments. Not much urine output. So far there is no sign of renal recovery (2) Acute encephalopathy: Code(s): G93.40 - Encephalopathy, unspecified Status: Acute Assessment and Plan: * possibly due to underlying dementia * electrolytes are okay * Ammonia is okay * follow mentation (3) Hypernatremia: Code(s): E87.0 - Hyperosmolality and hypernatremia Status: Acute Assessment and Plan: * resolved (4) Sepsis: Qualifiers: Sepsis type: sepsis due to unspecified organism Sepsis acute organ dysfunction status: with acute organ dysfunction Severe sepsis acute organ dysfunction type: encephalopathy Severe sepsis shock status: without septic shock Qualified Code(s): A41.9 - Sepsis, unspecified organism; R65.20 - Severe sepsis without septic shock; G93.40 - Encephalopathy, unspecified Code(s): A41.9 - Sepsis, unspecified organism Status: Acute Assessment and Plan: * Blood cultures show: 2/2 Negative on 09/23 1/2 positive for Proteus on 09/24 (contaminant?) Two more obtained yesterday and are pending. * If repeat cultures positive then consider removing the hemo catheter. * Pneumonia on chest x-ray * On Zosyn * continue supportive therapy (5) Transaminitis: Code(s): R74.01 - Elevation of levels of liver transaminase levels Status: Acute Assessment and Plan: * suggest shock liver * Ammonia level okay * enzyme levels were normal. No very mildly positive.. Subjective Date/time seen: 09/27/20 12:23 Interval history: Patient is resting comfortably in bed. He opens his eyes and says few social words. Denies any pain or shortness of breath Review of Systems Review of Systems: ROS unobtainable: Yes unobtainable due to medical condition Exam Narrative: Exam Narrative: General: Elderly male laying in bed and in NAD Heart: normal S1 and S2; no rub Lungs: clear anteriorly Abdomen: soft, nontender, nondistended, positive bowel sounds Extremities: no edema Skin: no rash or subcu nodules Objective Data Vital Signs Vital Signs: Vital Signs - 24 hr 09/26/20 13:28 09/26/20 14:00 09/26/20 14:27 Temperature 37.7 C H 37.3 C 37.3 C Pulse Rate 103 H Respiratory Rate 20 Blood Pressure 94/47 L Pulse Oximetry 94 09/26/20 20:09 09/27/20 04:34 09/27/20 08:56 Temperature 37.6 C 36.5 C Pulse Rate 101 H 91 57 L Respiratory Rate 18 16 Blood Pressure 120/59 L 109/55 L Pulse Oximetry 100 96 Intake/Output Intake/Output: Intake & Output 09/24/20 09/25/20 09/26/20 09/27/20 23:59 23:59 23:59 23:59 Intake Total 780 1590 1160 Output Total 1750 150 450 50 Balance -970 1440 710 -50 Meds/Results Medications: Active Medications
--- NOTE | 2020-09-27 12:23 | PM.PNNEP ---
Progress Note: A&P Assessment and Plan (1) RENETTA (acute kidney injury): Code(s): N17.9 - Acute kidney failure, unspecified Status: Acute Assessment and Plan: suspect ATN as etiology renal ultrasound is negative urine electrolytes are non pre renal. urinalysis is bland but does show 2+ protein. HD will be done on Thursday. Volume status looks okay. Serum electrolytes are okay His creatinine rises between treatments. Not much urine output. So far there is no sign of renal recovery (2) Acute encephalopathy: Code(s): G93.40 - Encephalopathy, unspecified Status: Acute Assessment and Plan: possibly due to underlying dementia electrolytes are okay Ammonia is okay follow mentation (3) Hypernatremia: Code(s): E87.0 - Hyperosmolality and hypernatremia Status: Acute Assessment and Plan: resolved (4) Sepsis: Qualifiers: Sepsis type: sepsis due to unspecified organism Sepsis acute organ dysfunction status: with acute organ dysfunction Severe sepsis acute organ dysfunction type: encephalopathy Severe sepsis shock status: without septic shock Qualified Code(s): A41.9 - Sepsis, unspecified organism; R65.20 - Severe sepsis without septic shock; G93.40 - Encephalopathy, unspecified Code(s): A41.9 - Sepsis, unspecified organism Status: Acute Assessment and Plan: Blood cultures show: 2/2 Negative on 09/23 1/2 positive for Proteus on 09/24 (contaminant?) Two more obtained yesterday and are pending. If repeat cultures positive then consider removing the hemo catheter. Pneumonia on chest x-ray On Zosyn continue supportive therapy (5) Transaminitis: Code(s): R74.01 - Elevation of levels of liver transaminase levels Status: Acute Assessment and Plan: suggest shock liver Ammonia level okay enzyme levels were normal. No very mildly positive.. Subjective Date/time seen: 09/27/20 12:23 Interval history: Patient is resting comfortably in bed. He opens his eyes and says few social words. Denies any pain or shortness of breath Review of Systems Review of Systems: ROS unobtainable: Yes unobtainable due to medical condition Exam Narrative: Exam Narrative: General: Elderly male laying in bed and in NAD Heart: normal S1 and S2; no rub Lungs: clear anteriorly Abdomen: soft, nontender, nondistended, positive bowel sounds Extremities: no edema Skin: no rash or subcu nodules Objective Data Vital Signs Vital Signs: Vital Signs - 24 hr 09/26/20 13:28 09/26/20 14:00 09/26/20 14:27 Temperature 37.7 C H 37.3 C 37.3 C Pulse Rate 103 H Respiratory Rate 20 Blood Pressure 94/47 L Pulse Oximetry 94 09/26/20 20:09 09/27/20 04:34 09/27/20 08:56 Temperature 37.6 C 36.5 C Pulse Rate 101 H 91 57 L Respiratory Rate 18 16 Blood Pressure 120/59 L 109/55 L Pulse Oximetry 100 96 Intake/Output Intake/Output: Intake & Output 09/24/20 09/25/20 09/26/20 09/27/20 23:59 23:59 23:59 23:59 Intake Total 780 1590 1160 Output Total 1750 150 450 50 Balance -970 1440 710 -50 Meds/Results Medications: Active Medications Generic Name Dose Route Start Last Admin Trade Name Freq PRN Reason Stop Dose Admin Acetaminophen 650 mg 09/17/20 19:56 09/26/20 20:32 Acetaminophen 325 Mg Tablet PO 650 mg Q4H PRN Administration Mild Pain (1-3) Or Fever Apixaban 5 mg 09/21/20 09:00 09/27/20 08:56 Apixaban 5 Mg Tablet PO 5 mg Q12HR ANABEL Administration Aspirin 81 mg 09/26/20 08:00 09/27/20 08:56 Aspirin 81 Mg Chewable Tablet PO 81 mg DAILY@0800 ANABEL Administration Atorvastatin Calcium 40 mg 09/24/20 09:00 09/27/20 08:56 Atorvastatin 40 Mg Tablet PO 40 mg DAILY ANABEL Administration Heparin Sodium (Porcine) 5,000 units 09/20/20 16:40 Heparin Sodium 5,000 Units/Ml Vial IRRIGATION ONCE [facility] Piperacillin Sod/Tazobactam Sod 2.2
--- NOTE | 2020-09-27 13:33 | PCPTNOTE ---
The PT treatment was unable to be completed today due to patient refusal. Will continue per Plan of Care frequency and duration.
[2020-09-27 14:33] VITALS: BP 112/58; PULSE 60; RESP 16; TEMP 36.8; O2SAT 96
--- NOTE | 2020-09-27 15:03 | PM.IMPN ---
Progress Note: A&P Assessment and Plan (1) Sepsis: Qualifiers: Sepsis acute organ dysfunction status: with acute organ dysfunction Sepsis type: sepsis due to unspecified organism Severe sepsis acute organ dysfunction type: encephalopathy Severe sepsis shock status: without septic shock Qualified Code(s): A41.9 - Sepsis, unspecified organism; R65.20 - Severe sepsis without septic shock; G93.40 - Encephalopathy, unspecified Code(s): A41.9 - Sepsis, unspecified organism Status: Acute Assessment and Plan: Pt present on admission with leukocytosis, tachycardia, tachypnea and RENETTA. BCx NGTD. UA on admission not consistent with UTI. CXR 09/15 showing improvement. Treated for MRSA PNA with Vanco started 09/13/20 and d/c 09/21. CXR 09/23 probable RML infiltrate. Still having intermittent fevers related to now positive BCx. UCx 09/23 growing Mala. BCx 09/23 NGTD. BCx 09/24 (1of2) growing Proteus sensitive to Zosyn. BCx 09/26 NGTD. Will continue Zosyn. Consider Diflucan. (2) Decubital ulcer: Qualifiers: Pressure injury location: sacral region Pressure injury stage: unstageable Qualified Code(s): L89.150 - Pressure ulcer of sacral region, unstageable Code(s): L89.90 - Pressure ulcer of unspecified site, unspecified stage Status: Chronic Assessment and Plan: Coccyx pressure ulcer with necrotic wound and bone exposed. General surgery saw patient and did not feel debridement required. Continue wound care. Continue IV abx. (3) Paroxysmal atrial fibrillation: Code(s): I48.0 - Paroxysmal atrial fibrillation Status: Acute Assessment and Plan: Patient has developed intermittent AFib. Probably related to the cardiomyopathy but had recent DVT over a month ago and anticoagulated so doubt PE. Continue Metoprolol. Back on Eliquis and off IV heparin 09/21 with tunnel cath placed 09/20. (4) Acute encephalopathy: Code(s): G93.40 - Encephalopathy, unspecified Status: Acute Assessment and Plan: Patient with acute encephalopathy related to the RENETTA and uremia. Patient is confused at baseline. He had a CT brain on admission showing no acute findings. He had a recent MRI brain last admission also showing no acute findings. Encephalopathy symptoms improved some since resolution of the hypernatremia and with HD. Patient probably at baseline. (5) Elevated troponin: Code(s): R77.8 - Other specified abnormalities of plasma proteins Status: Acute Assessment and Plan: Cardiology feels no [place]. Troponin 5.9 on admission and have been trending down. EKG showing no acute findings. Echo showing EF 20% and grade I diastolic dysfunction but no mention of wall motion abnormalities. Lipitor and Toprol XL added. Hold on BRAD inhibitors for now with renal function and lower bp. (6) Cardiomyopathy: Code(s): I42.9 - Cardiomyopathy, unspecified Status: Acute Assessment and Plan: Echo 09/14 showing LV chamber dimension moderately enlarged with severely reduced systolic function (EF 20-25%). Grade I diastolic dysfunction present as well. No old Echo but informed the EF is depressed chronically but not to this extent. Could be related to the renal failure. Continue Toprol and control fluid with dialysis (7) Acute respiratory failure with hypoxia: Code(s): J96.01 - Acute respiratory failure with hypoxia Status: Acute Assessment and Plan: Patient was on room air at last discharge on 09/08/20. ABG here showing 7.42/34/64 on RA. CXR 09/12 showing improving bilateral airspace disease. Vancomycin started for possible PNA and stopped 09/21. COVID negative. CXR 09/23 probable new infiltrate and now with positive BCx but felt related to the decubitus ulcer. Remains on room air now. (8) RENETTA (acute kidney injury): Code(s): N17.9 - Acute kidney failure, unspecified Status:
[2020-09-27 20:02] VITALS: BP 109/59; PULSE 100; RESP 16; TEMP 36.8; O2SAT 98
[2020-09-27] MEDS: rOPINIRole HCL 1 MG TABLET 2 MG PO (20:50)
[2020-09-28 04:31] VITALS: BP 111/56; PULSE 88; RESP 16; TEMP 36.1; O2SAT 95
[2020-09-28 06:16] LABS: Basophils Absolute Auto 0.1 K/mm3 (0.0-0.1); Basophils Percent Auto 0.5 % (0.2-1.2); Eosinophils Absolute Auto 0.5 K/mm3 (0-0.3); Eosinophils Percent Auto 2.7 % (0-4.4); Hematocrit 25.9 % (42.0-52.0); Hemoglobin 7.8 g/dL (14.0-18.0); Immature Granulocyte Absolute 0.15 K/mm3 (0.00-0.031); Immature Granulocyte Percent A 0.9 % (0-0.5); Lymphocytes Absolute Auto 1.23 K/mm3 (0.9-3.2); Lymphocytes Percent Auto 7.1 % (18.3-44.2); Mean Corpuscular HGB Conc 30.1 g/dl (32-36); Mean Corpuscular Hemoglobin 28.8 pg (26-34); Mean Corpuscular Volume 95.6 fl (80-100); Mean Platelet Volume 10.2 fl (7.4-10.4); Monocytes Absolute Auto 0.8 K/mm3 (0.1-0.6); Monocytes Percent Auto 4.9 % (2.6-8.5); Neutrophils Absolute Auto 14.5 K/mm3 (1.3-6.7); Neutrophils Percent Auto 83.9 % (45.5-73.1); Platelet Count Result 377 k/mm3 (150-375); Red Blood Count 2.71 M/mm3 (4.6-6.20); Red Cell Distribution Width 15.1 % (11.5-14.5); White Blood Count 17.2 K/mm3 (4.5-10.0)
[2020-09-28 06:47] LABS: Alanine Aminotransferase 94 U/L (4-50); Albumin Level 3.2 g/dL (3.5-5.1); Alkaline Phosphatase 122 U/L (38-126); Anion Gap 14 mmol/L (8-16); Aspartate Amino Transferase 72 U/L (17-59); Bilirubin,Total 0.5 mg/dL (0.2-1.3); Blood Urea Nitrogen 58 mg/dL (9-20); Calcium 8.6 mg/dL (8.4-10.2); Carbon Dioxide 27 mmol/L (22-30); Chloride 96 mmol/L (98-107); Estimated CRCL calculation 10 ml/min; Estimated Glomerular Filt Rate 9; Glucose 111 mg/dL (75-110); Magnesium 2.2 mg/dL (1.6-2.3); Phosphorus 6.6 mg/dL (2.5-4.5); Potassium 4.3 mmol/L (3.4-5.0); Sodium 137 mmol/L (137-145)
--- NOTE | 2020-09-28 09:40 | P.PNNP_ITS ---
Progress Note: A&P Assessment and Plan (1) RENETTA (acute kidney injury): Code(s): N17.9 - Acute kidney failure, unspecified Status: Acute Assessment and Plan: * suspect ATN as etiology * renal ultrasound is negative * urine electrolytes are non pre renal. * urinalysis is bland but does show 2+ protein. * HD will be done on Thursday. * Volume status looks okay. * Serum electrolytes are okay * Urine output minimal. * Hemodialysis tomorrow (2) Acute encephalopathy: Code(s): G93.40 - Encephalopathy, unspecified Status: Acute Assessment and Plan: * possibly due to underlying dementia * electrolytes are okay * Ammonia is okay * Seems to be borderline improved today. * follow mentation (3) Hypernatremia: Code(s): E87.0 - Hyperosmolality and hypernatremia Status: Acute Assessment and Plan: * resolved (4) Sepsis: Qualifiers: Sepsis type: sepsis due to unspecified organism Sepsis acute organ dysfunction status: with acute organ dysfunction Severe sepsis acute organ dysfunction type: encephalopathy Severe sepsis shock status: without septic shock Qualified Code(s): A41.9 - Sepsis, unspecified organism; R65.20 - Severe sepsis without septic shock; G93.40 - Encephalopathy, unspecified Code(s): A41.9 - Sepsis, unspecified organism Status: Acute Assessment and Plan: * Blood cultures show: 2/2 Negative on 09/23 1/2 positive for Proteus on 09/24 (contaminant?) Two more obtained yesterday and are pending. * If repeat cultures positive then consider removing the hemo catheter. * Pneumonia on chest x-ray * On Zosyn * continue supportive therapy (5) Transaminitis: Code(s): R74.01 - Elevation of levels of liver transaminase levels Status: Acute Assessment and Plan: * Mildly elevated liver enzymes Subjective Date/time seen: 09/28/20 09:40 Interval history: Patient is resting comfortably in bed. More spontaneous today. He wants to get up in a chair. ?I needed hair cut ? Exam Narrative: Exam Narrative: General: Elderly male laying in bed and in NAD Heart: normal S1 and S2; no rub Lungs: clear anteriorly Abdomen: soft, nontender, nondistended, positive bowel sounds Extremities: no edema Skin: no rash or subcu nodules Objective Data Vital Signs Vital Signs: Vital Signs - 24 hr 09/27/20 14:33 09/27/20 20:02 09/28/20 04:31 Temperature 36.8 C 36.8 C 36.1 C L Pulse Rate 60 100 88 Respiratory Rate 16 16 16 Blood Pressure 112/58 L 109/59 L 111/56 L Pulse Oximetry 96 98 95 Intake/Output Intake/Output: Intake & Output 09/25/20 09/26/20 09/27/20 09/28/20 23:59 23:59 23:59 23:59 Intake Total 1590 1160 590 Output Total 150 450 50 Balance 1440 710 540 Meds/Results Medications: Active Medications Generic Name Dose Route Start Last Admin Trade Name Freq PRN Reason Stop Dose Admin Acetaminophen 650 mg 09/17/20 19:56 09/26/20 20:32 Acetaminophen 325 Mg Tablet PO 650 mg Q4H PRN Administration Mild Pain (1-3) Or Fever Apixaban 5 mg 09/21/20 09:00 09/27/20 20:50 Apixaban 5 Mg Tablet PO 5 mg Q12HR ANABEL Administration Aspirin 81 mg 09/26/20
--- NOTE | 2020-09-28 09:40 | PM.PNNEP ---
Progress Note: A&P Assessment and Plan (1) RENETTA (acute kidney injury): Code(s): N17.9 - Acute kidney failure, unspecified Status: Acute Assessment and Plan: suspect ATN as etiology renal ultrasound is negative urine electrolytes are non pre renal. urinalysis is bland but does show 2+ protein. HD will be done on Thursday. Volume status looks okay. Serum electrolytes are okay Urine output minimal. Hemodialysis tomorrow (2) Acute encephalopathy: Code(s): G93.40 - Encephalopathy, unspecified Status: Acute Assessment and Plan: possibly due to underlying dementia electrolytes are okay Ammonia is okay Seems to be borderline improved today. follow mentation (3) Hypernatremia: Code(s): E87.0 - Hyperosmolality and hypernatremia Status: Acute Assessment and Plan: resolved (4) Sepsis: Qualifiers: Sepsis type: sepsis due to unspecified organism Sepsis acute organ dysfunction status: with acute organ dysfunction Severe sepsis acute organ dysfunction type: encephalopathy Severe sepsis shock status: without septic shock Qualified Code(s): A41.9 - Sepsis, unspecified organism; R65.20 - Severe sepsis without septic shock; G93.40 - Encephalopathy, unspecified Code(s): A41.9 - Sepsis, unspecified organism Status: Acute Assessment and Plan: Blood cultures show: 2/2 Negative on 09/23 1/2 positive for Proteus on 09/24 (contaminant?) Two more obtained yesterday and are pending. If repeat cultures positive then consider removing the hemo catheter. Pneumonia on chest x-ray On Zosyn continue supportive therapy (5) Transaminitis: Code(s): R74.01 - Elevation of levels of liver transaminase levels Status: Acute Assessment and Plan: Mildly elevated liver enzymes Subjective Date/time seen: 09/28/20 09:40 Interval history: Patient is resting comfortably in bed. More spontaneous today. He wants to get up in a chair. ?I needed hair cut ? Exam Narrative: Exam Narrative: General: Elderly male laying in bed and in NAD Heart: normal S1 and S2; no rub Lungs: clear anteriorly Abdomen: soft, nontender, nondistended, positive bowel sounds Extremities: no edema Skin: no rash or subcu nodules Objective Data Vital Signs Vital Signs: Vital Signs - 24 hr 09/27/20 14:33 09/27/20 20:02 09/28/20 04:31 Temperature 36.8 C 36.8 C 36.1 C L Pulse Rate 60 100 88 Respiratory Rate 16 16 16 Blood Pressure 112/58 L 109/59 L 111/56 L Pulse Oximetry 96 98 95 Intake/Output Intake/Output: Intake & Output 09/25/20 09/26/20 09/27/20 09/28/20 23:59 23:59 23:59 23:59 Intake Total 1590 1160 590 Output Total 150 450 50 Balance 1440 710 540 Meds/Results Medications: Active Medications Generic Name Dose Route Start Last Admin Trade Name Freq PRN Reason Stop Dose Admin Acetaminophen 650 mg 09/17/20 19:56 09/26/20 20:32 Acetaminophen 325 Mg Tablet PO 650 mg Q4H PRN Administration Mild Pain (1-3) Or Fever Apixaban 5 mg 09/21/20 09:00 09/27/20 20:50 Apixaban 5 Mg Tablet PO 5 mg Q12HR ANABEL Administration Aspirin 81 mg 09/26/20 08:00 09/27/20 08:56 Aspirin 81 Mg Chewable Tablet PO 81 mg DAILY@0800 ANABEL Administration Atorvastatin Calcium 40 mg 09/24/20 09:00 09/27/20 08:56 Atorvastatin 40 Mg Tablet PO 40 mg DAILY ANABEL Administration Heparin Sodium (Porcine) 5,000 units 09/20/20 16:40 Heparin Sodium 5,000 Units/Ml Vial IRRIGATION ONCE ANABEL Piperacillin Sod/Tazobactam Sod 2.25 gm in 50 mls @ 100 mls/hr 09/24/20 14:00 09/28/20 05:14 Zosyn 2.25 Gm/D5w 50 Ml IVPB 100 mls/hr Q8H ANABEL Administration Albumin Human 50 mls @ 999 mls/hr 09/26/20 04:58 09/26/20 11:17 Albutein IVPB 10/26/20 04:59 999 mls/hr Q10M PRN Administration HYPOTENSION Metoprolol Succinate 25 mg 09/19/20 09:00 09/27/20 08:56 Metopro
[2020-09-28 10:09] VITALS: PULSE 83
[2020-09-28] MEDS: ATORVASTATIN 40 MG TABLET PO (10:09)
[2020-09-28] MEDS: METOPROLOL SUCCINATE EXT REL 25 MG TABCR PO (10:09)
[2020-09-28] MEDS: ASPIRIN 81 MG CHEWABLE TABLET PO (10:09)
[2020-09-28] MEDS: APIXABAN 5 MG TABLET PO ×2 (10:09→22:08)
[2020-09-28] MEDS: SOD HYPOCHLORITE 1/4 STRENGTH 473 ML 1 APPLIC TOPICAL ×2 (10:10→22:09)
[2020-09-28 14:00] VITALS: BP 99/51; PULSE 106; RESP 16; TEMP 36.3; O2SAT 100
--- NOTE | 2020-09-28 17:23 | PM.IMPN ---
Progress Note: A&P Assessment and Plan (1) Sepsis: Qualifiers: Sepsis acute organ dysfunction status: with acute organ dysfunction Sepsis type: sepsis due to unspecified organism Severe sepsis acute organ dysfunction type: encephalopathy Severe sepsis shock status: without septic shock Qualified Code(s): A41.9 - Sepsis, unspecified organism; R65.20 - Severe sepsis without septic shock; G93.40 - Encephalopathy, unspecified Code(s): A41.9 - Sepsis, unspecified organism Status: Acute Assessment and Plan: Pt present on admission with leukocytosis, tachycardia, tachypnea and RENETTA. BCx NGTD. UA on admission not consistent with UTI. CXR 09/15 showing improvement. Treated for MRSA PNA with Vanco started 09/13/20 and d/c 09/21. CXR 09/23 probable RML infiltrate. Still having intermittent fevers related to now positive BCx 09/24. UCx 09/23 growing Mala. BCx 09/23 NGTD. BCx 09/24 (1of2) growing Proteus sensitive to Zosyn. BCx 09/26 NGTD. Will continue Zosyn. (2) Decubital ulcer: Qualifiers: Pressure injury location: sacral region Pressure injury stage: unstageable Qualified Code(s): L89.150 - Pressure ulcer of sacral region, unstageable Code(s): L89.90 - Pressure ulcer of unspecified site, unspecified stage Status: Chronic Assessment and Plan: Coccyx pressure ulcer with necrotic wound and bone exposed. General surgery saw patient and did not feel debridement required. Continue wound care. Continue IV abx. (3) Paroxysmal atrial fibrillation: Code(s): I48.0 - Paroxysmal atrial fibrillation Status: Acute Assessment and Plan: Patient has developed intermittent AFib. Probably related to the cardiomyopathy and sepsis; doubt PE. Continue Metoprolol. Back on Eliquis and off IV heparin 09/21 with tunnel cath placed 09/20. (4) Acute encephalopathy: Code(s): G93.40 - Encephalopathy, unspecified Status: Acute Assessment and Plan: Patient with acute encephalopathy related to the RENETTA and uremia. Patient is confused at baseline. He had a CT brain on admission showing no acute findings. He had a recent MRI brain last admission also showing no acute findings. Encephalopathy symptoms improved with resolution of the hypernatremia and with HD. Patient much more alert but still confused and probably at baseline. (5) Elevated troponin: Code(s): R77.8 - Other specified abnormalities of plasma proteins Status: Acute Assessment and Plan: Cardiology feels no [place]. Troponin 5.9 on admission and have been trending down. EKG showing no acute findings. Echo showing EF 20% and grade I diastolic dysfunction but no mention of wall motion abnormalities. Lipitor and Toprol XL added. Hold on BRAD inhibitors for now with renal function and lower bp. (6) Cardiomyopathy: Code(s): I42.9 - Cardiomyopathy, unspecified Status: Acute Assessment and Plan: Echo 09/14 showing LV chamber dimension moderately enlarged with severely reduced systolic function (EF 20-25%). Grade I diastolic dysfunction present as well. No old Echo but informed the EF is depressed chronically but not to this extent. Could be related to the renal failure. Continue Toprol and control fluid with dialysis (7) Acute respiratory failure with hypoxia: Code(s): J96.01 - Acute respiratory failure with hypoxia Status: Acute Assessment and Plan: Patient was on room air at last discharge on 09/08/20. ABG here showing 7.42/34/64 on RA. CXR 09/12 showing improving bilateral airspace disease. Vancomycin started for possible PNA and stopped 09/21. COVID negative. CXR 09/23 probable new infiltrate and now with positive BCx but felt related to the decubitus ulcer. Remains on room air now. (8) RENETTA (acute kidney injury): Code(s): N17.9 - Acute kidney failure, unspecified Status: Acute Assessment and Plan:
[2020-09-28 22:00] VITALS: BP 138/78; PULSE 108; RESP 17; TEMP 36.8; O2SAT 98
[2020-09-28] MEDS: rOPINIRole HCL 1 MG TABLET 2 MG PO (22:08)
[2020-09-29] VITALS (10 sets, daily range): BP systolic 87–135; BP diastolic 31–67; PULSE 76–103; RESP 16–20; TEMP 36–37.2; O2SAT 97–98; BMI 11.0
[2020-09-29 06:02] LABS: Basophils Absolute Auto 0.1 K/mm3 (0.0-0.1); Basophils Percent Auto 0.5 % (0.2-1.2); Eosinophils Absolute Auto 0.3 K/mm3 (0-0.3); Hematocrit 25.1 % (42.0-52.0); Hemoglobin 7.5 g/dL (14.0-18.0); Immature Granulocyte Absolute 0.12 K/mm3 (0.00-0.031); Immature Granulocyte Percent A 0.9 % (0-0.5); Lymphocytes Absolute Auto 1.57 K/mm3 (0.9-3.2); Lymphocytes Percent Auto 11.3 % (18.3-44.2); Mean Corpuscular HGB Conc 29.9 g/dl (32-36); Mean Corpuscular Hemoglobin 28.3 pg (26-34); Mean Corpuscular Volume 94.7 fl (80-100); Mean Platelet Volume 10.5 fl (7.4-10.4); Monocytes Absolute Auto 0.7 K/mm3 (0.1-0.6); Monocytes Percent Auto 4.8 % (2.6-8.5); Neutrophils Absolute Auto 11.2 K/mm3 (1.3-6.7); Neutrophils Percent Auto 80.5 % (45.5-73.1); Platelet Count Result 389 k/mm3 (150-375); Red Blood Count 2.65 M/mm3 (4.6-6.20); Red Cell Distribution Width 15.4 % (11.5-14.5); White Blood Count 13.9 K/mm3 (4.5-10.0)
[2020-09-29 06:31] LABS: Alanine Aminotransferase 69 U/L (4-50); Albumin Level 3.3 g/dL (3.5-5.1); Alkaline Phosphatase 110 U/L (38-126); Anion Gap 16 mmol/L (8-16); Aspartate Amino Transferase 49 U/L (17-59); Bilirubin,Total 0.6 mg/dL (0.2-1.3); Blood Urea Nitrogen 72 mg/dL (9-20); CRP 18.3 mg/dL (<1.0); Calcium 8.4 mg/dL (8.4-10.2); Carbon Dioxide 24 mmol/L (22-30); Chloride 94 mmol/L (98-107); Estimated CRCL calculation 9 ml/min; Estimated Glomerular Filt Rate 8; Glucose 105 mg/dL (75-110); Potassium 4.4 mmol/L (3.4-5.0); Sodium 134 mmol/L (137-145)
[2020-09-29 07:11] LABS: Anisocytosis 1+ (NORMAL); Hypochromasia 1+ (NORMAL); Platelet Estimate Adequate (Adequate)
[2020-09-29 07:43] LABS: Glucose Point of Care 104 (65-105)
[2020-09-29] MEDS: ASPIRIN 81 MG CHEWABLE TABLET PO (07:59)
[2020-09-29] MEDS: METOPROLOL SUCCINATE EXT REL 25 MG TABCR PO (07:59)
[2020-09-29] MEDS: APIXABAN 5 MG TABLET PO ×2 (07:59→21:17)
[2020-09-29] MEDS: SOD HYPOCHLORITE 1/4 STRENGTH 473 ML 1 APPLIC TOPICAL ×2 (08:00→21:18)
[2020-09-29] MEDS: ATORVASTATIN 40 MG TABLET PO (09:30)
--- NOTE | 2020-09-29 13:10 | PM.IMPN ---
Progress Note: A&P Assessment and Plan (1) Sepsis: Qualifiers: Sepsis acute organ dysfunction status: with acute organ dysfunction Sepsis type: sepsis due to unspecified organism Severe sepsis acute organ dysfunction type: encephalopathy Severe sepsis shock status: without septic shock Qualified Code(s): A41.9 - Sepsis, unspecified organism; R65.20 - Severe sepsis without septic shock; G93.40 - Encephalopathy, unspecified Code(s): A41.9 - Sepsis, unspecified organism Status: Acute Assessment and Plan: Pt present on admission with leukocytosis, tachycardia, tachypnea and RENETTA. BCx NGTD. UA on admission not consistent with UTI. CXR 09/15 showing improvement. Treated for PNA with Vanco started 09/13/20 and d/c 09/21. CXR 09/23 probable RML infiltrate. No furher fevers. WBC up and down but not resolving. CRP better at 18. He does have a tunneled catheter in place. Nair removed ut had to be replaced today. UCx 09/23 growing Mala. BCx 09/23 NGTD. BCx 09/24 (1of2) growing Proteus sensitive to Zosyn. BCx 09/26 NGTD. Will continue Zosyn. ID consult (2) Decubital ulcer: Qualifiers: Pressure injury location: sacral region Pressure injury stage: unstageable Qualified Code(s): L89.150 - Pressure ulcer of sacral region, unstageable Code(s): L89.90 - Pressure ulcer of unspecified site, unspecified stage Status: Chronic Assessment and Plan: Coccyx pressure ulcer with necrotic wound and bone exposed. General surgery saw patient and did not feel debridement required. Continue wound care. Continue IV abx. (3) Paroxysmal atrial fibrillation: Code(s): I48.0 - Paroxysmal atrial fibrillation Status: Acute Assessment and Plan: Patient has developed intermittent AFib. Probably related to the cardiomyopathy and sepsis; doubt PE. Continue Metoprolol. Back on Eliquis and off IV heparin 09/21 with tunnel cath placed 09/20. (4) Acute encephalopathy: Code(s): G93.40 - Encephalopathy, unspecified Status: Acute Assessment and Plan: Patient with acute encephalopathy related to the RENETTA and uremia. Patient is confused at baseline. He had a CT brain on admission showing no acute findings. He had a recent MRI brain last admission also showing no acute findings. Encephalopathy symptoms improved with resolution of the hypernatremia and with HD. Patient much more alert but still confused and probably at baseline. (5) Elevated troponin: Code(s): R77.8 - Other specified abnormalities of plasma proteins Status: Acute Assessment and Plan: Cardiology feels no [place]. Troponin 5.9 on admission and have been trending down. EKG showing no acute findings. Echo showing EF 20% and grade I diastolic dysfunction but no mention of wall motion abnormalities. ASA, Lipitor and Toprol XL added. (6) Cardiomyopathy: Code(s): I42.9 - Cardiomyopathy, unspecified Status: Acute Assessment and Plan: Echo 09/14 showing LV chamber dimension moderately enlarged with severely reduced systolic function (EF 20-25%). Grade I diastolic dysfunction present as well. No old Echo but informed the EF is depressed chronically but not to this extent. Could be related to the renal failure. Continue Toprol and control fluid with dialysis. Will add low dose BRAD inhibitor on non-HD days. (7) Acute respiratory failure with hypoxia: Code(s): J96.01 - Acute respiratory failure with hypoxia Status: Acute Assessment and Plan: Patient was on room air at last discharge on 09/08/20. ABG here showing 7.42/34/64 on RA. CXR 09/12 showing improving bilateral airspace disease. Vancomycin started for possible PNA and stopped 09/21. COVID negative. CXR 09/23 probable new infiltrate and now with positive BCx but felt related to the decubitus ulcer. Remains on room air now. (8) RENETTA (acute kidney injury): Code(s): N17
--- NOTE | 2020-09-29 14:19 | PCDIET ---
Nutrition Follow-Up Complete: Nutrition Diagnosis: Inadequate oral intake related to diet order as evidenced by NPO status. Nutrition Goal: Patient to meet estimated nutritional needs. Goal not met. Patient consuming 0-50% of most meals, but does generally take Nepro supplement (425kcal, 19g protein) which is being provided twice per day. Recommend increasing supplement to TID with all meals. Could also consider liberalizing diet and adding phosphorus binder. Last recorded weight is 93.2 kg which is stable with last review. Bowel Motility: Documented BM x 1 today. Labs Reviewed: Hgb (7.5), Hct (25.1), BUN (72), Cr (6.9), Na (134), Alb (3.3) Meds Noted: Lipitor, Lisinopril, Zosyn Additional Notes: Deep tissue to left heel and unstageable area to coccyx. Will continue to monitor with same goal. Nutrition Monitoring and Evaluation: Follow up every 3 days.
[2020-09-29] MEDS: lisinopriL 2.5 MG TABLET PO (14:42)
--- NOTE | 2020-09-29 15:35 | P.PNNP_ITS ---
Progress Note: A&P Assessment and Plan (1) RENETTA (acute kidney injury): Code(s): N17.9 - Acute kidney failure, unspecified Status: Acute Assessment and Plan: * suspect ATN as etiology * renal ultrasound is negative * urine electrolytes are non pre renal. * u.o. not great. * no sign of recovery from ATN yet. (2) Acute encephalopathy: Code(s): G93.40 - Encephalopathy, unspecified Status: Acute Assessment and Plan: * possibly due to underlying dementia * electrolytes are okay * Ammonia is okay * improved spontaneity but still confused. (3) Hypernatremia: Code(s): E87.0 - Hyperosmolality and hypernatremia Status: Acute Assessment and Plan: * resolved (4) Sepsis: Qualifiers: Sepsis type: sepsis due to unspecified organism Sepsis acute organ dysfunction status: with acute organ dysfunction Severe sepsis acute organ dysfunction type: encephalopathy Severe sepsis shock status: without septic shock Qualified Code(s): A41.9 - Sepsis, unspecified organism; R65.20 - Severe sepsis without septic shock; G93.40 - Encephalopathy, unspecified Code(s): A41.9 - Sepsis, unspecified organism Status: Acute Assessment and Plan: * Blood cultures show: 2/2 Negative on 09/23 1/2 positive for Proteus on 09/24 (contaminant?) Two more obtained yesterday and are pending. * If repeat cultures positive then consider removing the hemo catheter. neg so far. * Pneumonia on chest x-ray * On Zosyn * Dr Dickerson to see. (5) Transaminitis: Code(s): R74.01 - Elevation of levels of liver transaminase levels Status: Acute Assessment and Plan: * Mildly elevated liver enzymes Subjective Date/time seen: 09/29/20 15:35 Interval history: Patient is resting comfortably in bed. feels okay. spirits good still confused. Exam Narrative: Exam Narrative: General: Elderly male laying in bed and in NAD Heart: normal S1 and S2; no rub Lungs: clear anteriorly Abdomen: soft, nontender, nondistended, positive bowel sounds Extremities: no edema or cyanosis Skin: no rash or subcu nodules Objective Data Vital Signs Vital Signs: Vital Signs - 24 hr 09/28/20 22:00 09/29/20 04:14 09/29/20 07:59 Temperature 36.8 C 36.4 C Pulse Rate 108 H 96 78 Respiratory Rate 17 17 Blood Pressure 138/78 112/56 L Pulse Oximetry 98 98 09/29/20 14:00 Temperature 36.6 C Pulse Rate 95 Respiratory Rate 16 Blood Pressure 92/63 L Pulse Oximetry 98 Intake/Output Intake/Output: Intake & Output 09/26/20 09/27/20 09/28/20 09/29/20 23:59 23:59 23:59 23:59 Intake Total 1160 921 093 1013 Output Total 450 50 Balance 710 716 831 3003 Meds/Results Medications: Active Medications Generic Name Dose Route Start Last Admin Trade Name Freq PRN Reason Stop Dose Admin Acetaminophen 650 mg 09/17/20 19:56 09/26/20 20:32 Acetaminophen 325 Mg Tablet PO 650 mg Q4H PRN Administration Mild Pain (1-3) Or Fever Apixaban 5 mg 09/21/20 09:00 09/29/20 07:59 Apixaban 5 Mg Tablet PO 5 mg Q12HR ANABEL Administration Aspirin 81 mg 09/26/20
--- NOTE | 2020-09-29 15:35 | PM.PNNEP ---
Progress Note: A&P Assessment and Plan (1) RENETTA (acute kidney injury): Code(s): N17.9 - Acute kidney failure, unspecified Status: Acute Assessment and Plan: suspect ATN as etiology renal ultrasound is negative urine electrolytes are non pre renal. u.o. not great. no sign of recovery from ATN yet. (2) Acute encephalopathy: Code(s): G93.40 - Encephalopathy, unspecified Status: Acute Assessment and Plan: possibly due to underlying dementia electrolytes are okay Ammonia is okay improved spontaneity but still confused. (3) Hypernatremia: Code(s): E87.0 - Hyperosmolality and hypernatremia Status: Acute Assessment and Plan: resolved (4) Sepsis: Qualifiers: Sepsis type: sepsis due to unspecified organism Sepsis acute organ dysfunction status: with acute organ dysfunction Severe sepsis acute organ dysfunction type: encephalopathy Severe sepsis shock status: without septic shock Qualified Code(s): A41.9 - Sepsis, unspecified organism; R65.20 - Severe sepsis without septic shock; G93.40 - Encephalopathy, unspecified Code(s): A41.9 - Sepsis, unspecified organism Status: Acute Assessment and Plan: Blood cultures show: 2/2 Negative on 09/23 1/2 positive for Proteus on 09/24 (contaminant?) Two more obtained yesterday and are pending. If repeat cultures positive then consider removing the hemo catheter. neg so far. Pneumonia on chest x-ray On Di Dickerson to see. (5) Transaminitis: Code(s): R74.01 - Elevation of levels of liver transaminase levels Status: Acute Assessment and Plan: Mildly elevated liver enzymes Subjective Date/time seen: 09/29/20 15:35 Interval history: Patient is resting comfortably in bed. feels okay. spirits good still confused. Exam Narrative: Exam Narrative: General: Elderly male laying in bed and in NAD Heart: normal S1 and S2; no rub Lungs: clear anteriorly Abdomen: soft, nontender, nondistended, positive bowel sounds Extremities: no edema or cyanosis Skin: no rash or subcu nodules Objective Data Vital Signs Vital Signs: Vital Signs - 24 hr 09/28/20 22:00 09/29/20 04:14 09/29/20 07:59 Temperature 36.8 C 36.4 C Pulse Rate 108 H 96 78 Respiratory Rate 17 17 Blood Pressure 138/78 112/56 L Pulse Oximetry 98 98 09/29/20 14:00 Temperature 36.6 C Pulse Rate 95 Respiratory Rate 16 Blood Pressure 92/63 L Pulse Oximetry 98 Intake/Output Intake/Output: Intake & Output 09/26/20 09/27/20 09/28/20 09/29/20 23:59 23:59 23:59 23:59 Intake Total 1160 783 518 6611 Output Total 450 50 Balance 710 344 487 5663 Meds/Results Medications: Active Medications Generic Name Dose Route Start Last Admin Trade Name Freq PRN Reason Stop Dose Admin Acetaminophen 650 mg 09/17/20 19:56 09/26/20 20:32 Acetaminophen 325 Mg Tablet PO 650 mg Q4H PRN Administration Mild Pain (1-3) Or Fever Apixaban 5 mg 09/21/20 09:00 09/29/20 07:59 Apixaban 5 Mg Tablet PO 5 mg Q12HR ANABEL Administration Aspirin 81 mg 09/26/20 08:00 09/29/20 07:59 Aspirin 81 Mg Chewable Tablet PO 81 mg DAILY@0800 ANABEL Administration Atorvastatin Calcium 40 mg 09/24/20 09:00 09/29/20 09:30 Atorvastatin 40 Mg Tablet PO 40 mg DAILY ANABEL Administration Heparin Sodium (Porcine) 5,000 units 09/20/20 16:40 Heparin Sodium 5,000 Units/Ml Vial IRRIGATION ONCE ANABEL Piperacillin Sod/Tazobactam Sod 2.25 gm in 50 mls @ 100 mls/hr 09/24/20 14:00 09/29/20 14:41 Zosyn 2.25 Gm/D5w 50 Ml IVPB 100 mls/hr Q8H ANABEL Administration Albumin Human 50 mls @ 999 mls/hr 09/26/20 04:58 09/26/20 11:17 Albutein IVPB 10/26/20 04:59 999 mls/hr Q10M PRN Administration HYPOTENSION Lisinopril 2.5 mg 09/29/20 13:30 09/29/20 14:42 Lisinopril 2.5 Mg Tablet PO 2.5 mg SuTuThSa@0900 ANABEL Administration Metop
--- NOTE | 2020-09-29 16:58 | WPDCN ---
Assessment and Plan Additional Plan 1. Proteus mirabilis bacteremia most likely genitourinary source. Other potential sources include decubitus ulcer. Patient is currently on Zosyn day 5.. Continue IV antibiotics complete 7 days and subsequently transition to oral antibiotics for 7 more days. WBC count is within normal limits. 2. Stage IV decubitus ulcer. Continue local wound care. 3. Acute kidney failure on dialysis. Last creatinine was 6.9. 4. Encephalopathy. Multifactorial including infection and metabolic disturbance. But suspect ROUNDHOUSE FIRER/FIREMAN infection. 5. Date of service 09/29/2020. CC Dr. Rivas [facility] Data of Consult Date/Time: 09/29/20 16:58 Requesting Physician: Valeriy Rivas MD Primary Care Provider: Arthur Quezada, Consult Narrative Narrative: Saad Yarbrough is a 75 year old male who was admitted on September 13, 2020 for acute renal failure and non ST segment elevated myocardial infarction. Prolonged and complicated stay with decubitus ulcer stage IV and a chronic indwelling catheter. I was requested to see him due to a positive blood culture from September 24, 2020 were 1/2 sets grew Proteus mirabilis. Patient has been on Zosyn since the 25 of September. I was requested to see him for further recommendation of antibiotics treatment. Repeat blood cultures are negative. Patient is nonverbal today. History is obtained from the chart. Review of Systems Review of Systems: Narrative: Unable to obtain since patient is confused and nonverbal. [facility] Past Medical History Medical History Acute renal failure (ARF) Acute respiratory failure with hypoxia Altered mental status Anxiety Anxiety and depression CAD (coronary artery disease) Cardiomyopathy Depression Discontinued smoking Diverticulitis DVT (deep venous thrombosis) GI bleed Heart attack History of myocardial infarction History of poliomyelitis Hyperlipidemia Hypernatremia Hypertension Macrocytic anemia Macular degeneration disease Malignant melanoma Non-ST elevation [place] (NSTEMI) Parkinsons Paroxysmal atrial fibrillation Sepsis Surgical History Surgical History H/O cardiac catheterization H/O heart artery stent Stents in the proximal circ and OM2 in 2010 History of colonoscopy History of tonsillectomy Family History Family History Mother CHF (congestive heart failure) Father Malignant neoplasm of prostate Leukemia Social History Social History Social History: the patient used to smoke until he met his and then he quit. He used to smoke anywhere from a pack to half a pack a day but quit approximately 14 years ago. He rarely drinks. He quit drinking about the same did quit smoking. 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 He had 1 biological child a son who was murdered at the age of 21 related to drug activity. 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. He desires to be a full code. Smoking status: Former smoker Tobacco type: cigarettes Second hand tobacco smoke exposure: No Alcohol intake: former Substance use: never Substance use type: former substance user and marijuana Other substance usage details: no drinking or smoking in 14 yrs Gender identity (if verbalized by the patient): Male Spiritual care concerns: No Meds Home Medications and Allergies Home Medications Medication Instructions Recorded Confirmed Type atorvastatin 40 mg PO DAILY 08/12/20 09/13/20 History metoprolol succinate 25 mg PO DAILY 08/12/20 09/13/20 History primidone 500 mg PO QID 08/12/20 09/13/20 History ropinirole 4 mg PO HS 08/12/20 09/13/20 History Eliquis 5 mg PO BID #74 tablet 08/14/20 09/13/20 Rx acetaminophen [Mapap 650 mg PO Q4H PRN #30 tablet
[2020-09-29] MEDS: rOPINIRole HCL 1 MG TABLET 2 MG PO (21:17)
--- NOTE | 2020-09-29 21:20 | PC.NURSE ---
pt transferred to dialysis at this time via bed.
[2020-09-30] VITALS (11 sets, daily range): BP systolic 99–116; BP diastolic 38–74; PULSE 71–106; RESP 16–88; TEMP 36.6–37.3; O2SAT 95–99
--- NOTE | 2020-09-30 02:08 | PC.NURSE ---
Patient returned from dialysis via bed. instrument man states was only able to remove 600ml from patient at this time.
[2020-09-30 06:20] LABS: Basophils Absolute Auto 0.1 K/mm3 (0.0-0.1); Basophils Percent Auto 0.5 % (0.2-1.2); Eosinophils Absolute Auto 0.3 K/mm3 (0-0.3); Eosinophils Percent Auto 2.4 % (0-4.4); Hematocrit 22.4 % (42.0-52.0); Immature Granulocyte Absolute 0.07 K/mm3 (0.00-0.031); Immature Granulocyte Percent A 0.6 % (0-0.5); Lymphocytes Absolute Auto 1.21 K/mm3 (0.9-3.2); Lymphocytes Percent Auto 10.9 % (18.3-44.2); Mean Corpuscular HGB Conc 30.8 g/dl (32-36); Mean Corpuscular Hemoglobin 28.8 pg (26-34); Mean Corpuscular Volume 93.3 fl (80-100); Mean Platelet Volume 9.3 fl (7.4-10.4); Monocytes Absolute Auto 0.6 K/mm3 (0.1-0.6); Monocytes Percent Auto 5.5 % (2.6-8.5); Neutrophils Absolute Auto 8.9 K/mm3 (1.3-6.7); Neutrophils Percent Auto 80.1 % (45.5-73.1); Platelet Count Result 354 k/mm3 (150-375); Red Cell Distribution Width 14.9 % (11.5-14.5); White Blood Count 11.1 K/mm3 (4.5-10.0)
[2020-09-30 06:34] LABS: Anion Gap 9 mmol/L (8-16); Blood Urea Nitrogen 35 mg/dL (9-20); Carbon Dioxide 29 mmol/L (22-30); Chloride 98 mmol/L (98-107); Estimated CRCL calculation 15 ml/min; Estimated Glomerular Filt Rate 15; Glucose 96 mg/dL (75-110); Potassium 3.6 mmol/L (3.4-5.0); Sodium 136 mmol/L (137-145)
[2020-09-30 06:39] LABS: Hemoglobin 6.9 g/dL (14.0-18.0)
[2020-09-30 08:02] LABS: Hemoglobin 6.8 g/dL (14.0-18.0)
[2020-09-30] MEDS: ATORVASTATIN 40 MG TABLET PO (08:22)
[2020-09-30] MEDS: ASPIRIN 81 MG CHEWABLE TABLET PO (08:22)
[2020-09-30] MEDS: APIXABAN 5 MG TABLET PO ×2 (08:22→21:39)
[2020-09-30] MEDS: lisinopriL 2.5 MG TABLET PO (08:22)
[2020-09-30] MEDS: SOD HYPOCHLORITE 1/4 STRENGTH 473 ML 1 APPLIC TOPICAL ×2 (08:23→21:40)
[2020-09-30] MEDS: METOPROLOL SUCCINATE EXT REL 25 MG TABCR PO (08:23)
--- NOTE | 2020-09-30 10:10 | PM.PNNEP ---
Progress Note: A&P Assessment and Plan (1) RENETTA (acute kidney injury): Code(s): N17.9 - Acute kidney failure, unspecified Status: Acute Assessment and Plan: suspect ATN as etiology renal ultrasound is negative urine electrolytes are non pre renal. u.o. not great. no sign of recovery from ATN yet. (2) Acute encephalopathy: Code(s): G93.40 - Encephalopathy, unspecified Status: Acute Assessment and Plan: possibly due to underlying dementia Awake but confused. (3) Hypernatremia: Code(s): E87.0 - Hyperosmolality and hypernatremia Status: Acute Assessment and Plan: resolved (4) Sepsis: Qualifiers: Sepsis type: sepsis due to unspecified organism Sepsis acute organ dysfunction status: with acute organ dysfunction Severe sepsis acute organ dysfunction type: encephalopathy Severe sepsis shock status: without septic shock Qualified Code(s): A41.9 - Sepsis, unspecified organism; R65.20 - Severe sepsis without septic shock; G93.40 - Encephalopathy, unspecified Code(s): A41.9 - Sepsis, unspecified organism Status: Acute Assessment and Plan: Blood cultures show: 2/2 Negative on 09/23 1/2 positive for Proteus on 09/24 (contaminant?) Two more obtained yesterday and are pending. If repeat cultures positive then consider removing the hemo catheter. neg so far. Pneumonia on chest x-ray On [facility] Dr Millan saw yesterday. (5) Transaminitis: Code(s): R74.01 - Elevation of levels of liver transaminase levels Status: Acute Assessment and Plan: Mildly elevated liver enzymes Subjective Date/time seen: 09/30/20 10:10 Interval history: Patient is resting comfortably in bed. feels okay. Had a good bowel movement. Exam Narrative: Exam Narrative: General: Elderly male laying in bed and in NAD Heart: normal S1 and S2; no rub Lungs: clear anteriorly Abdomen: soft, nontender, nondistended, positive bowel sounds Extremities: no edema or cyanosis Skin: no rash or subcu nodules Objective Data Vital Signs Vital Signs: Vital Signs - 24 hr 09/29/20 14:00 09/29/20 21:42 09/29/20 21:51 Temperature 36.6 C 37.0 C 37.2 C Pulse Rate 95 103 H 95 Respiratory Rate 16 18 20 Blood Pressure 92/63 L 117/60 117/66 Pulse Oximetry 98 97 09/29/20 22:00 09/29/20 22:15 09/29/20 22:30 Temperature Pulse Rate 92 98 92 Respiratory Rate Blood Pressure 119/67 92/49 L 87/31 L Pulse Oximetry 09/29/20 22:45 09/29/20 23:00 09/30/20 00:00 Temperature Pulse Rate 89 76 72 Respiratory Rate Blood Pressure 135/60 128/47 L 109/38 L Pulse Oximetry 09/30/20 01:00 09/30/20 06:00 09/30/20 08:23 Temperature 37.3 C 36.7 C Pulse Rate 101 H 106 H 78 Respiratory Rate 22 H 20 Blood Pressure 116/74 112/52 L Pulse Oximetry 95 Intake/Output Intake/Output: Intake & Output 09/27/20 09/28/20 09/29/20 09/30/20 23:59 23:59 23:59 23:59 Intake Total 700 799 3227 490 Output Total 50 550 753 Balance 540 640 640 -157 Meds/Results Medications: Active Medications Generic Name Dose Route Start Last Admin Trade Name Freq PRN Reason Stop Dose Admin Acetaminophen 650 mg 09/17/20 19:56 09/26/20 20:32 Acetaminophen 325 Mg Tablet PO 650 mg Q4H PRN Administration Mild Pain (1-3) Or Fever Apixaban 5 mg 09/21/20 09:00 09/30/20 08:22 Apixaban 5 Mg Tablet PO 5 mg Q12HR ANABEL Administration Aspirin 81 mg 09/26/20 08:00 09/30/20 08:22 Aspirin 81 Mg Chewable Tablet PO 81 mg DAILY@0800 ANABEL Administration Atorvastatin Calcium 40 mg 09/24/20 09:00 09/30/20 08:22 Atorvastatin 40 Mg Tablet PO 40 mg DAILY ANABEL Administration Heparin Sodium (Porcine) 5,000 units 09/20/20 16:40 Heparin Sodium 5,000 Units/Ml Vial IRRIGATION ONCE ANABEL Hyoscyamine 0.0625 mg 09/30/20 08:41 Hyoscyamine Sulfate 0.0625 Mg Tablet PO Q4H PRN [place]
[2020-09-30] MEDS: SODIUM CHLORIDE 0.9% IV 250 ML 30 ML IV CONT (11:45)
[2020-09-30] MEDS: HYOSCYAMINE SULFATE 0.0625 MG TABLET PO (12:58)
[2020-09-30] MEDS: ACETAMINOPHEN 325 MG TABLET 650 MG PO (13:00)
--- NOTE | 2020-09-30 13:06 | PM.IMPN ---
Progress Note: A&P Assessment and Plan (1) Sepsis: Qualifiers: Sepsis acute organ dysfunction status: with acute organ dysfunction Sepsis type: sepsis due to unspecified organism Severe sepsis acute organ dysfunction type: encephalopathy Severe sepsis shock status: without septic shock Qualified Code(s): A41.9 - Sepsis, unspecified organism; R65.20 - Severe sepsis without septic shock; G93.40 - Encephalopathy, unspecified Code(s): A41.9 - Sepsis, unspecified organism Status: Acute Assessment and Plan: Pt present on admission with leukocytosis, tachycardia, tachypnea and RENETTA. BCx NGTD. UA on admission not consistent with UTI. CXR 09/15 showing improvement. Treated for PNA with Vanco started 09/13/20 and d/c 09/21. CXR 09/23 probable RML infiltrate and was having fevers. WBC up and down but not resolving. CRP better at 18. He does have a tunneled catheter in place. Nair removed but had to be replaced. UCx 09/23 growing Mala. BCx 09/23 NGTD. BCx 09/24 (1of2) growing Proteus sensitive to Zosyn. BCx 09/26 NGTD. Will continue Zosyn Day 6/7 then change to oral abx. Appreciate ID input Discussed with family. (2) Decubital ulcer: Qualifiers: Pressure injury location: sacral region Pressure injury stage: unstageable Qualified Code(s): L89.150 - Pressure ulcer of sacral region, unstageable Code(s): L89.90 - Pressure ulcer of unspecified site, unspecified stage Status: Chronic Assessment and Plan: Coccyx pressure ulcer with necrotic wound. Also with left heel necrotic wound. General surgery saw patient and did not feel debridement required. Continue wound care. Continue IV abx. (3) Paroxysmal atrial fibrillation: Code(s): I48.0 - Paroxysmal atrial fibrillation Status: Acute Assessment and Plan: Patient has developed intermittent AFib. Probably related to the cardiomyopathy and sepsis; doubt PE. Continue Metoprolol. Back on Eliquis and off IV heparin 09/21 after tunnel cath placed 09/20. (4) Acute encephalopathy: Code(s): G93.40 - Encephalopathy, unspecified Status: Acute Assessment and Plan: Patient with acute encephalopathy related to the RENETTA and uremia. Patient is confused at baseline. He had a CT brain on admission showing no acute findings. He had a recent MRI brain last admission also showing no acute findings. Encephalopathy symptoms improved with resolution of the hypernatremia and with HD. Patient much more alert but still confused and probably at baseline. (5) Elevated troponin: Code(s): R77.8 - Other specified abnormalities of plasma proteins Status: Acute Assessment and Plan: Cardiology feels no PA. Troponin 5.9 on admission and have been trending down. EKG showing no acute findings. Echo showing EF 20% and grade I diastolic dysfunction but no mention of wall motion abnormalities. Continue ASA, Lipitor and Toprol XL. (6) Cardiomyopathy: Code(s): I42.9 - Cardiomyopathy, unspecified Status: Acute Assessment and Plan: Echo 09/14 showing LV chamber dimension moderately enlarged with severely reduced systolic function (EF 20-25%). Grade I diastolic dysfunction present as well. No old Echo but informed the EF is depressed chronically but not to this extent. Could be related to the renal failure. Continue Toprol and control fluid with dialysis. Low dose BRAD inhibitor on non-HD days added. (7) Acute respiratory failure with hypoxia: Code(s): J96.01 - Acute respiratory failure with hypoxia Status: Acute Assessment and Plan: Patient was on room air at last discharge on 09/08/20. ABG here showing 7.42/34/64 on RA. CXR 09/12 showing improving bilateral airspace disease. Vancomycin started for possible PNA and stopped 09/21. COVID negative. CXR 09/23 probable new infiltrate and now with positive BCx but felt related to the decubitus ulc
[2020-09-30] MEDS: rOPINIRole HCL 1 MG TABLET 2 MG PO (21:39)
[2020-10-01] VITALS (24 sets, daily range): BP systolic 85–138; BP diastolic 38–72; PULSE 59–108; RESP 14–20; TEMP 35.8–37; O2SAT 96–99; BMI 11.0
--- NOTE | 2020-10-01 05:00 | ECG_ITS ---
Measurements Intervals [place] Rate: 96 P: 59 CO: 200 QRS: -61 QRSD: 134 T: 75 QT: 405 QTc: 514 Interpretive Statements SINUS RHYTHM LEFT AXIS DEVIATION LEFT BUNDLE BRANCH BLOCK ABNORMAL ECG Electronically Signed On 10-01-2020 13:57:33 COMMUNITY SERVICE DIRECTOR by Dom Murphy D.O.
[2020-10-01 06:18] LABS: Basophils Absolute Auto 0.1 K/mm3 (0.0-0.1); Basophils Percent Auto 0.6 % (0.2-1.2); Eosinophils Absolute Auto 0.3 K/mm3 (0-0.3); Eosinophils Percent Auto 3.2 % (0-4.4); Hematocrit 24.1 % (42.0-52.0); Hemoglobin 7.6 g/dL (14.0-18.0); Immature Granulocyte Absolute 0.06 K/mm3 (0.00-0.031); Immature Granulocyte Percent A 0.6 % (0-0.5); Lymphocytes Absolute Auto 1.39 K/mm3 (0.9-3.2); Lymphocytes Percent Auto 13.2 % (18.3-44.2); Mean Corpuscular HGB Conc 31.5 g/dl (32-36); Mean Corpuscular Hemoglobin 29.1 pg (26-34); Mean Corpuscular Volume 92.3 fl (80-100); Mean Platelet Volume 10.1 fl (7.4-10.4); Monocytes Absolute Auto 0.8 K/mm3 (0.1-0.6); Monocytes Percent Auto 7.2 % (2.6-8.5); Neutrophils Absolute Auto 7.9 K/mm3 (1.3-6.7); Neutrophils Percent Auto 75.2 % (45.5-73.1); Platelet Count Result 362 k/mm3 (150-375); Red Blood Count 2.61 M/mm3 (4.6-6.20); Red Cell Distribution Width 14.7 % (11.5-14.5); White Blood Count 10.5 K/mm3 (4.5-10.0)
[2020-10-01 06:31] LABS: Alanine Aminotransferase 47 U/L (4-50); Albumin Level 2.9 g/dL (3.5-5.1); Alkaline Phosphatase 79 U/L (38-126); Anion Gap 10 mmol/L (8-16); Aspartate Amino Transferase 40 U/L (17-59); Bilirubin,Total 0.4 mg/dL (0.2-1.3); Blood Urea Nitrogen 48 mg/dL (9-20); Calcium 7.8 mg/dL (8.4-10.2); Carbon Dioxide 28 mmol/L (22-30); Chloride 96 mmol/L (98-107); Estimated CRCL calculation 12 ml/min; Estimated Glomerular Filt Rate 11; Glucose 116 mg/dL (75-110); Potassium 3.7 mmol/L (3.4-5.0); Sodium 134 mmol/L (137-145)
--- NOTE | 2020-10-01 08:35 | PC.NURSE ---
Patient taken to dialysis via hospital bed.
--- NOTE | 2020-10-01 11:18 | PM.PNNEP ---
Progress Note: A&P Assessment and Plan (1) RENETTA (acute kidney injury): Code(s): N17.9 - Acute kidney failure, unspecified Status: Acute Assessment and Plan: suspect ATN as etiology renal ultrasound is negative urine electrolytes are non pre renal. u.o. not great. no sign of recovery from ATN yet. continue dialysis 3 times a week (2) Acute encephalopathy: Code(s): G93.40 - Encephalopathy, unspecified Status: Acute Assessment and Plan: possibly due to underlying dementia Awake but confused. (3) Hypernatremia: Code(s): E87.0 - Hyperosmolality and hypernatremia Status: Acute Assessment and Plan: resolved (4) Sepsis: Qualifiers: Sepsis type: sepsis due to unspecified organism Sepsis acute organ dysfunction status: with acute organ dysfunction Severe sepsis acute organ dysfunction type: encephalopathy Severe sepsis shock status: without septic shock Qualified Code(s): A41.9 - Sepsis, unspecified organism; R65.20 - Severe sepsis without septic shock; G93.40 - Encephalopathy, unspecified Code(s): A41.9 - Sepsis, unspecified organism Status: Acute Assessment and Plan: Blood cultures show: 2/2 Negative on 09/23 1/2 positive for Proteus on 09/24 (contaminant?) Two more obtained yesterday and are pending. If repeat cultures positive then consider removing the hemo catheter. neg so far. Pneumonia on chest x-ray On Zosyn Afebrile. His WBC is down to 10.5 Dr Monty king. evaluation pending. (5) Transaminitis: Code(s): R74.01 - Elevation of levels of liver transaminase levels Status: Acute Assessment and Plan: Mildly elevated liver enzymes Subjective Date/time seen: 10/01/20 11:18 Interval history: Patient is resting comfortably in bed. On dialysis and tolerating it well. His blood pressure did drop early in the treatment. I talked with the dialysis nurse and he said this frequently happens with him. Currently he is blood pressure is good. He is asymptomatic. He was seen at 11:10 a.m. feels okay. Exam Narrative: Exam Narrative: General: Elderly male laying in bed and in NAD Heart: normal S1 and S2; no rub Lungs: clear bilaterally Abdomen: soft, nontender, nondistended, positive bowel sounds Extremities: no edema or cyanosis Skin: no rash or subcu nodules Objective Data Vital Signs Vital Signs: Vital Signs - 24 hr 09/30/20 12:26 09/30/20 12:55 09/30/20 13:55 Temperature 36.8 C 36.8 C 36.6 C Pulse Rate 89 100 88 Respiratory Rate 18 18 88 H Blood Pressure 104/48 L 104/46 L 99/61 L Pulse Oximetry 99 98 98 09/30/20 14:00 09/30/20 14:55 09/30/20 15:55 Temperature 36.7 C 36.6 C 36.8 C Pulse Rate 88 76 78 Respiratory Rate 16 16 16 Blood Pressure 99/61 L 103/58 L 102/59 L Pulse Oximetry 98 95 96 09/30/20 19:39 10/01/20 06:00 10/01/20 09:20 Temperature 37.3 C 35.8 C L 36.8 C Pulse Rate 93 89 73 Respiratory Rate 18 14 16 Blood Pressure 105/50 L 115/62 138/44 L Pulse Oximetry 98 99 10/01/20 09:33 10/01/20 09:45 10/01/20 10:00 Temperature Pulse Rate 88 61 79 Respiratory Rate Blood Pressure 96/38 L 100/49 L 85/41 L Pulse Oximetry 10/01/20 10:15 10/01/20 10:30 10/01/20 10:45 Temperature Pulse Rate 75 71 67 Respiratory Rate Blood Pressure 100/41 L 123/56 L 134/63 Pulse Oximetry 10/01/20 11:00 10/01/20 11:15 Temperature Pulse Rate 59 L 71 Respiratory Rate Blood Pressure 118/49 L 114/57 L Pulse Oximetry Intake/Output Intake/Output: Intake & Output 09/28/20 09/29/20 09/30/20 10/01/20 23:59 23:59 23:59 23:59 Intake Total 640 1190 2620 490 Output Total 550 953 400 Balance 718 366 2309 90 Meds/Results Medications: Active Medications Generic Name Dose Route Start Last Admin Trade Name Freq PRN Reason Stop Dose Admin Acetaminophen 650 mg 09/17/20 19:56 09/30/20 13:00 Acetaminophe
[2020-10-01] MEDS: EPOETIN ALFA-EPBX 10,000 UNITS/ML VIAL 10000 UNITS IV PUSH (12:23)
--- NOTE | 2020-10-01 12:42 | WPDINFPN2 ---
Progress Note: A&P Assessment and Plan (1) Proteus septicemia: Code(s): A41.59 - Other Gram-negative sepsis Status: Acute Assessment and Plan: 1. Proteus bacteremia with infection, microbiologic cure 2. CRF, HD cath R IJ. REC Stop IV, and give 7 days ampicillin po, adjust for CRF. Ok home anytime. Subjective Date/time seen: 10/01/20 12:42 Interval history: no U.O since HD started. Feels ok. Seen on HD Exam Narrative: Exam Narrative: afebrile Const: General: no acute distress Resp: Effort & Inspection: normal respiratory effort Auscultation: clear to auscultation bilaterally Cardio: Rate: regular rate Rhythm: regular rhythm Heart sounds: no murmurs GI: Inspection: non-distended GI Palp: Yes Soft to palpation, No Tenderness to palpation present (GI) and No Guarding due to palpation present (GI) : General: Yes bladder normal to palpation Male General Exam: No tenderness Objective Data Vital Signs Vital Signs: Vital Signs - 24 hr 09/30/20 12:55 09/30/20 13:55 09/30/20 14:00 Temperature 36.8 C 36.6 C 36.7 C Pulse Rate 100 88 88 Respiratory Rate 18 88 H 16 Blood Pressure 104/46 L 99/61 L 99/61 L Pulse Oximetry 98 98 98 09/30/20 14:55 09/30/20 15:55 09/30/20 19:39 Temperature 36.6 C 36.8 C 37.3 C Pulse Rate 76 78 93 Respiratory Rate 16 16 18 Blood Pressure 103/58 L 102/59 L 105/50 L Pulse Oximetry 95 96 98 10/01/20 06:00 10/01/20 09:20 10/01/20 09:33 Temperature 35.8 C L 36.8 C Pulse Rate 89 73 88 Respiratory Rate 14 16 Blood Pressure 115/62 138/44 L 96/38 L Pulse Oximetry 99 10/01/20 09:45 10/01/20 10:00 10/01/20 10:15 Temperature Pulse Rate 61 79 75 Respiratory Rate Blood Pressure 100/49 L 85/41 L 100/41 L Pulse Oximetry 10/01/20 10:30 10/01/20 10:45 10/01/20 11:00 Temperature Pulse Rate 71 67 59 L Respiratory Rate Blood Pressure 123/56 L 134/63 118/49 L Pulse Oximetry 10/01/20 11:15 10/01/20 11:30 10/01/20 11:45 Temperature Pulse Rate 71 65 94 Respiratory Rate Blood Pressure 114/57 L 131/53 L 123/69 Pulse Oximetry 10/01/20 12:00 10/01/20 12:15 10/01/20 12:30 Temperature Pulse Rate 94 92 91 Respiratory Rate Blood Pressure 124/64 118/68 100/53 L Pulse Oximetry 10/01/20 12:37 Temperature Pulse Rate 95 Respiratory Rate Blood Pressure 127/68 Pulse Oximetry Intake/Output Intake/Output: Intake & Output 09/28/20 09/29/20 09/30/20 10/01/20 23:59 23:59 23:59 23:59 Intake Total 640 1190 2620 490 Output Total 550 953 400 Balance 541 081 7969 90 Meds/Results Medications: Active Medications Generic Name Dose Route Start Last Admin Trade Name Freq PRN Reason Stop Dose Admin Acetaminophen 650 mg 09/17/20 19:56 09/30/20 13:00 Acetaminophen 325 Mg Tablet PO 650 mg Q4H PRN Administration Mild Pain (1-3) Or Fever Apixaban 5 mg 09/21/20 09:00 09/30/20 21:39 Apixaban 5 Mg Tablet PO 5 mg Q12HR ANABEL Administration Aspirin 81 mg 09/26/20 08:00 09/30/20 08:22 Aspirin 81 Mg Chewable Tablet PO 81 mg DAILY@0800 ANABEL Administration Atorvastatin Calcium 40 mg 09/24/20 09:00 09/30/20 08:22 Atorvastatin 40 Mg Tablet PO 40 mg DAILY ANABEL Administration Heparin Sodium (Porcine) 5,000 units 09/20/20 16:40 Heparin Sodium 5,000 Units/Ml Vial IRRIGATION ONCE ANABEL Hyoscyamine 0.0625 mg 09/30/20 08:41 09/30/20 12:58 Hyoscyamine Sulfate 0.0625 Mg Tablet PO 0.0625 mg Q4H PRN Administration Bladder Spasm Piperacillin Sod/Tazobactam Sod 2.25 gm in 50 mls @ 100 mls/hr 09/24/20 14:00 10/01/20 06:32 Zosyn 2.25 Gm/D5w 50 Ml IVPB Infused Q8H ANABEL Infusion Albumin Human 50 mls @ 999 mls/hr 09/26/20 04:58 09/26/20 11:17 Albutein IVPB 10/26/20 04:59 999 mls/hr Q10M PRN Administration HYPOTENSION Albumin Human 50 mls @ 999 mls/hr 10/01/20 11:04 Albutein IVPB 10/02/20 11:05 Q10M PRN HYPOTENSION [place]
[2020-10-01] MEDS: HEPARIN SODIUM 1,000 UNITS/ML VIAL 1000 UNITS IV PUSH (13:29)
--- NOTE | 2020-10-01 13:40 | PC.NURSE ---
Patient returned from dialysis via hospital bed.
[2020-10-01] MEDS: ATORVASTATIN 40 MG TABLET PO (14:34)
[2020-10-01] MEDS: METOPROLOL SUCCINATE EXT REL 25 MG TABCR PO (14:34)
[2020-10-01] MEDS: APIXABAN 5 MG TABLET PO ×2 (14:34→20:15)
[2020-10-01] MEDS: ASPIRIN 81 MG CHEWABLE TABLET PO (14:34)
[2020-10-01] MEDS: SOD HYPOCHLORITE 1/4 STRENGTH 473 ML 1 APPLIC TOPICAL (14:36)
--- NOTE | 2020-10-01 16:31 | PM.DS ---
DS: Admitting Diagnosis Admitting Diagnosis Admitting Diagnosis: Altered mental status DS: Discharge Diagnosis Discharge Diagnosis (1) Sepsis: Qualifiers: Sepsis acute organ dysfunction status: with acute organ dysfunction Sepsis type: sepsis due to unspecified organism Severe sepsis acute organ dysfunction type: encephalopathy Severe sepsis shock status: without septic shock Qualified Code(s): A41.9 - Sepsis, unspecified organism; R65.20 - Severe sepsis without septic shock; G93.40 - Encephalopathy, unspecified Code(s): A41.9 - Sepsis, unspecified organism Status: Acute Assessment and Plan: Pt present on admission with leukocytosis, tachycardia, tachypnea and RENETTA. BCx NGTD. UA on admission not consistent with UTI. CXR 09/15 showing improvement. Treated for PNA with Vanco started 09/13/20 and d/c 09/21. CXR 09/23 probable RML infiltrate and was having fevers. WBC up and down but not resolving. CRP better at 18. He does have a tunneled catheter in place. Nair removed but had to be replaced due to retention. UCx 09/23 growing Mala felt to be colonizer/contaminate. BCx 09/23 NGTD. BCx 09/24 (1of2) growing Proteus sensitive to Zosyn. BCx 09/26 NGTD. We continued Zosyn for 7 days then changed to oral abx. Appreciate ID input. Discussed with family. (2) Decubital ulcer: Qualifiers: Pressure injury location: sacral region Pressure injury stage: unstageable Qualified Code(s): L89.150 - Pressure ulcer of sacral region, unstageable Code(s): L89.90 - Pressure ulcer of unspecified site, unspecified stage Status: Chronic Assessment and Plan: Coccyx pressure ulcer with necrotic wound. Also with left heel necrotic wound. General surgery saw patient and did not feel debridement required. Continue wound care at facility (3) Paroxysmal atrial fibrillation: Code(s): I48.0 - Paroxysmal atrial fibrillation Status: Acute Assessment and Plan: Patient has developed intermittent AFib. Probably related to the cardiomyopathy and sepsis; doubt PE. We continued Metoprolol. Back on Eliquis and off IV heparin 09/21 after tunnel cath placed 09/20. (4) Acute encephalopathy: Code(s): G93.40 - Encephalopathy, unspecified Status: Acute Assessment and Plan: Patient with acute encephalopathy related to the RENETTA and uremia. Patient is confused at baseline. He had a CT brain on admission showing no acute findings. He had a recent MRI brain last admission also showing no acute findings. Encephalopathy symptoms improved with resolution of the hypernatremia and with HD. Patient much more alert but still confused and probably at baseline. (5) Elevated troponin: Code(s): R77.8 - Other specified abnormalities of plasma proteins Status: Acute Assessment and Plan: Cardiology feels no NC. Troponin 5.9 on admission and have been trending down. EKG showing no acute findings. Echo showing EF 20% and grade I diastolic dysfunction but no mention of wall motion abnormalities. We continued ASA, Lipitor and Toprol XL. (6) Cardiomyopathy: Code(s): I42.9 - Cardiomyopathy, unspecified Status: Acute Assessment and Plan: Echo 09/14 showing LV chamber dimension moderately enlarged with severely reduced systolic function (EF 20-25%). Grade I diastolic dysfunction present as well. No old Echo but informed the EF is depressed chronically but not to this extent. Could be related to the renal failure. We continued Toprol and HD to control fluid. Low dose BRAD inhibitor on non-HD days added. (7) Acute respiratory failure with hypoxia: Code(s): J96.01 - Acute respiratory failure with hypoxia Status: Acute Assessment and Plan: Patient was on room air at last discharge on 09/08/20. ABG here showing 7.42/34/64 on RA. CXR 09/12 showing improving bilateral airspace disease. Vancomycin started for poss
[2020-10-01] MEDS: AMPICILLIN TRIHYDRATE 500 MG CAPSULE PO (20:15)
[2020-10-01] MEDS: rOPINIRole HCL 1 MG TABLET 2 MG PO (20:15)
== END 2020-10-01 22:03 | DRG 871 ==
LOC: ANHED 21:21 → ANHIMU 09-13 03:00 → ANH3MED 09-20 00:41 → ANHIMU 10-03 11:26
PROVIDERS: Internal Medicine; Internal Medicine Cardiovascular Disease; Internal Medicine Nephrology; Student in an Organized Health Care Education/Training Program; Surgery; Admitting Provider Family Medicine; Emergency Provider General Practice; PCP Internal Medicine; Visit Provider Internal Medicine
PROC: 0JH63XZ Insertion of Tunneled Vascular Access Device into Chest Subcutaneous Tissue and Fascia, Percutaneous Approach (ICD-10-PCS; CPT 36908; principal; 2020-09-20 15:30)
DX: A41.9 Sepsis, unspecified organism (principal); L89.154 Pressure ulcer of sacral region, stage 4; G93.41 Metabolic encephalopathy; J15.212 Pneumonia due to Methicillin resistant Staphylococcus aureus; J96.01 Acute respiratory failure with hypoxia; K72.00 Acute and subacute hepatic failure without coma; N17.9 Acute kidney failure, unspecified; E87.0 Hyperosmolality and hypernatremia; I42.9 Cardiomyopathy, unspecified; I82.401 Acute embolism and thrombosis of unspecified deep veins of right lower extremity; B37.49 Other urogenital candidiasis; R65.20 Severe sepsis without septic shock; Z87.891 Personal history of nicotine dependence; G20 Parkinson's disease; Z91.81 History of falling; F41.9 Anxiety disorder, unspecified; F32.9 Major depressive disorder, single episode, unspecified; Z86.718 Personal history of other venous thrombosis and embolism; I25.2 Old myocardial infarction; Z86.12 Personal history of poliomyelitis; E78.5 Hyperlipidemia, unspecified; I10 Essential (primary) hypertension; Z85.820 Personal history of malignant melanoma of skin; Z79.01 Long term (current) use of anticoagulants; D72.823 Leukemoid reaction; I48.0 Paroxysmal atrial fibrillation; R77.8 Other specified abnormalities of plasma proteins; E86.0 Dehydration; X58.XXXD Exposure to other specified factors, subsequent encounter; S80.02XD Contusion of left knee, subsequent encounter; B96.4 Proteus (mirabilis) (morganii) as the cause of diseases classified elsewhere; R33.9 Retention of urine, unspecified
CPT/HCPCS: 36415; 36430; 36600; 51701; 70450; 71045; 76705; 76775; 77001; 80048; 80053; 80069; 80076; 80202; 81001; 81050; 82140; 82248; 82375; 82436; 82550; 82565; 82570; 82805; 83050; 83605; 83690; 83735; 83880; 84100; 84156; 84300; 84443; 84484; 85014; 85018; 85025; 85027; 85610; 85730; 85999; 86140; 86704; 86706; 86803; 86850; 86900; 86901; 86920; 87040; 87077; 87086; 87106; 87186; 87324; 87340; 87635; 87804; 92610; 93005; 96361; 96374; 97110; 97162; 97166; 97530; 97535; 99291; A9270; C1750; C8929; C9803; G0257; J0131; J0692; J1644; J2543; J2704; J3370; J7030; J7040; J7050; J7070; P9016; P9047; Q5106; Q9957; U0003

== ENCOUNTER 2020-10-13 12:44 | Inpatient (IN) | payer MEDICARE, SELFPAY ==
[2020-10-13] VITALS (43 sets, daily range): BP systolic 69–139; BP diastolic 45–72; PULSE 47–118; RESP 12–28; TEMP 36.4–37.2; O2SAT 96–100; BMI 27.9
--- NOTE | ~2020-10-13 | CT_ITS ---
EXAMINATION: CT brain wo con DATE: 10/13/2020 14:47 INDICATION: Confusion. Syncope. TECHNIQUE: Computed tomography (CT) of the head was performed without intravenous contrast. The mA wa s adjusted according to patient size. Iterative reconstruction technique was employed. The dose-lengt h product was 681.00 mGy-cm. COMPARISON: Head CT 09/12/2020 FINDINGS: There are scattered areas of low attenuation in the cerebral white matter. There is no intr acranial hemorrhage, acute infarction, or abnormal intracranial mass lesion. The ventricles are warner l in size. The mastoid air cells are normal. There is mild mucosal thickening in the paranasal sinuse s. There are likely changes of ocular lens replacement surgeries. IMPRESSION: 1. Stable mild nonspecific cerebral white matter disease, which likely represents chronic small vesse l ischemic disease. Reviewed, dictated and finalized at location A. IAC CATH TECH IMPRESSION: 1. Stable mild nonspecific cerebral white matter disease, which likely represen ts chronic small vessel ischemic disease.
--- NOTE | ~2020-10-13 | XR_ITS ---
XR chest 1V portable 10/13/2020 14:10 Indication: Hypotension. Weakness. Procedure: AP portable chest Comparison: Comparison to multiple prior studies sequentially, with oldest reviewed study dated 09/04. Findings: Large bore central venous catheters near the cavoatrial junction. Cardiomegaly. Right perih ilar infiltrates, suspicious for pneumonia. Elevated right diaphragm. No significant pleural effusion or pneumothorax. Impression: 1: Right perihilar infiltrates, suspicious for pneumonia. Reviewed, dictated and finalized at location A. MARKER Impression: 1: Right perihilar infiltrates, suspicious for pneumonia.
--- NOTE | ~2020-10-13 | XR_ITS ---
XR chest PICC line 10/20/2020 15:07 Indication: PICC line placed Procedure: AP portable chest Comparison: 10/13/2020 Findings: PICC line tip in the SVC. There is a large bore dual-lumen central venous catheter tips gricel r the cavoatrial junction. Borderline heart size. Patchy right perihilar and left basilar infiltrates may represent atelectasis or less likely pneumonia. No significant effusion or pneumothorax. Elevate d right diaphragm. Impression: 1: Patchy bilateral infiltrates of the right mid and left lower lung zones, atelectasis versus pneumo irwin. Reviewed, dictated and finalized at location A. DING CUSTODIAL SUPERVISOR Impression: 1: Patchy bilateral infiltrates of the right mid and left lower lung zones, ate lectasis versus pneumonia.
--- NOTE | 2020-10-13 13:25 | ECG_ITS ---
Measurements Intervals [place] Rate: 94 P: 24 IN: 172 QRS: -62 QRSD: 142 T: 83 QT: 402 QTc: 503 Interpretive Statements SINUS RHYTHM LEFT AXIS DEVIATION LEFT BUNDLE BRANCH BLOCK ABNORMAL ECG Electronically Signed On 10-16-2020 13:53:42 MEDICAL EDUCATOR by Dom Murphy D.O.
--- NOTE | 2020-10-13 13:32 | PC.NURSE ---
Pt to ED with complaints of feeling like he is not properly being taken care of at this facility where he resides. Pt states he has a sore on his bottom that is not being taken care of. Pt states he is not cleaned appropriately. No other complaints at this time. Denies chest pain, sob, or dizziness.
--- NOTE | 2020-10-13 13:46 | ECG_ITS ---
Measurements Intervals [place] Rate: 93 P: 131 WI: 202 QRS: 244 QRSD: 146 T: 98 QT: 407 QTc: 507 Interpretive Statements SINUS RHYTHM ARM LEADS REVERSED BORDERLINE AV CONDUCTION DELAY LEFT BUNDLE BRANCH BLOCK CANNOT RULE OUT SEPTAL INFARCT, AGE INDETERMINATE ABNORMAL ECG Electronically Signed On 10-13-2020 14:32:40 LIME SLUDGE KILN OPERATOR by Dom Murphy D.O.
--- NOTE | 2020-10-13 13:53 | ED.GENADULT ---
HPI - General Adult General Chief complaint: Syncope Stated complaint: Wound Itching on [place] Time Seen by Provider: 10/13/20 13:09 Source: patient Mode of arrival: ambulatory Limitations: no limitations History of Present Illness HPI narrative: Patient is a 75-year-old male brought in by EMS after having a near syncopal episode at the dialysis center. Patient states that the reason why he almost passed out and felt lightheaded and weak is because I was waiting there for too long until his turn to get his dialysis. Patient also states that he has a sore in his buttocks area that the [facility] has not been [facility] well. Patient denies any headache, speech or visual disturbance, numbness, chest pain, shortness of breath, abdominal pain, nausea, vomiting, diarrhea, fever or chills. Patient states he is nonambulatory. Patient is alert and oriented x3. Related Data Home Medications Medication Instructions Recorded Confirmed atorvastatin 40 mg PO DAILY 08/12/20 09/13/20 metoprolol succinate 25 mg PO DAILY 08/12/20 09/13/20 primidone 500 mg PO QID 08/12/20 09/13/20 Allergies Allergy/AdvReac Type Severity Reaction Status Date / Time No Known Allergies Allergy Unknown Verified 10/13/20 13:19 Review of Systems Review of Systems: All systems reviewed & are unremarkable except as noted in HPI and below Constitutional: Constitutional: Denies body ache(s), Denies chills, Denies excessive sweating, Denies fatigue, Denies fever(s), Denies headache(s), Denies lethargy, Denies malaise and Denies weight loss Eyes: Eyes: Denies blurry vision, Denies change in vision and Denies loss of vision ENT: Denies dizziness, Denies ear discharge, Denies headache(s), Denies lip swelling, Denies epistaxis, Denies nasal congestion, Denies neck pain, Denies throat swelling and Denies tongue swelling Cardiovascular: Cardiovascular: Denies chest pain, Denies chest pain at rest, Denies chest pain with activity, Denies diaphoresis, Denies rapid heart rate, Denies edema, Denies irregular heart rhythm, Denies lightheadedness, Denies palpitations, Denies dyspnea and Denies dyspnea on exertion Respiratory: Respiratory: Denies chest congestion, Denies cough, Denies hemoptysis, Denies dyspnea and Denies dyspnea on exertion Gastrointestinal: Gastrointestinal: Denies abdominal pain, Denies melena, Denies hematochezia, Denies diarrhea, Denies nausea, Denies vomiting and Denies hematemesis Musculoskeletal: Musculoskeletal: Denies abnormal gait, Denies deformity, Denies joint swelling, Denies limited range of motion, Denies neck pain and Denies numbness Neurologic: Denies Abnormal speech present, Denies abnormal gait, Denies confusion, Denies headache(s), Denies loss of vision, Denies numbness, Denies Other visual disturbances and Denies Sensory deficit (Neuro) Psychiatric: Psychiatric: Denies confusion, Denies depression, Denies auditory hallucinations, Denies homicidal ideation and Denies suicidal ideation Endocrine: Endocrine: Denies cold intolerance, Denies excessive sweating, Denies fatigue, Denies heat intolerance and Denies palpitations Hematologic/Lymphatic: Hematologic/Lymphatic: Denies easy bleeding and Denies easy bruising Allergic/Immunologic: Allergic/Immunologic: Denies lip swelling, Denies throat swelling and Denies tongue swelling PMFSH Past Medical History Medical History Acute renal failure (ARF) Acute respiratory failure with hypoxia Altered mental status Anxiety Anxiety and depression CAD (coronary artery disease) Cardiomyopathy Depression Discontinued smoking Diverticulitis DVT (deep venous thrombosis) GI bleed Heart attack History of myocardial infarction History of poliomyelitis Hyperlipidemia Hypernatremia Hypertension Macrocytic anemia Macular degeneration disease Malignant melanoma Non-ST elevation [place] (NSTEMI) Parkinsons Paroxysmal atrial fibrillation Sepsis Surgical
[2020-10-13 14:00] LABS: Basophils Absolute Auto 0.1 K/mm3 (0.0-0.1); Basophils Percent Auto 0.4 % (0.2-1.2); Eosinophils Absolute Auto 0.1 K/mm3 (0-0.3); Eosinophils Percent Auto 0.4 % (0-4.4); Hematocrit 27.8 % (42.0-52.0); Hemoglobin 8.8 g/dL (14.0-18.0); Immature Granulocyte Absolute 0.07 K/mm3 (0.00-0.031); Immature Granulocyte Percent A 0.5 % (0-0.5); Lymphocytes Absolute Auto 2.61 K/mm3 (0.9-3.2); Mean Corpuscular HGB Conc 31.7 g/dl (32-36); Mean Corpuscular Hemoglobin 28.5 pg (26-34); Mean Platelet Volume 9.9 fl (7.4-10.4); Monocytes Absolute Auto 0.9 K/mm3 (0.1-0.6); Monocytes Percent Auto 6.6 % (2.6-8.5); Neutrophils Absolute Auto 10.1 K/mm3 (1.3-6.7); Neutrophils Percent Auto 73.1 % (45.5-73.1); Platelet Count Result 377 k/mm3 (150-375); Red Blood Count 3.09 M/mm3 (4.6-6.20); Red Cell Distribution Width 15.7 % (11.5-14.5); White Blood Count 13.8 K/mm3 (4.5-10.0)
[2020-10-13] MEDS: SODIUM CHLORIDE 0.9% IV 1,000 ML 500 ML IV CONT (14:04)
[2020-10-13 14:14] LABS: Anion Gap 7 mmol/L (8-16); Blood Urea Nitrogen 30 mg/dL (9-20); Calcium 7.8 mg/dL (8.4-10.2); Carbon Dioxide 30 mmol/L (22-30); Chloride 92 mmol/L (98-107); Estimated Glomerular Filt Rate 31; Glucose 111 mg/dL (75-110); INR 1.9; Potassium 3.7 mmol/L (3.4-5.0); Prothrombin Time 22.4 Seconds (11.1-14.7); Sodium 129 mmol/L (137-145)
[2020-10-13 14:15] LABS: Partial Thromboplastin Time 39.6 SECONDS (22.3-36.8)
[2020-10-13 14:26] LABS: Troponin I 0.401 ng/mL (0.000-0.034)
--- NOTE | 2020-10-13 15:12 | PC.NURSE ---
Changed byrd bag due to old one leaking
[2020-10-13 17:44] LABS: Troponin I 0.375 ng/mL (0.000-0.034)
--- NOTE | 2020-10-13 19:18 | ADMGEN ---
This patient, Saad Yarbrough, was admitted to IMU Room 231-01. Patient/family oriented to hospital policies and general routines including ID bracelet, bed and alarms, visiting hours, pain management, procedures, bathroom and other care routines, personal items, smoking policy, room service/diet, and visiting hours. Information on how to activate the Rapid Response Team has been discussed. Patient/Family are encouraged to report perceived risks to care and to ask questions if they do not understand what they are told or what they should do.
[2020-10-14] VITALS (16 sets, daily range): BP systolic 92–107; BP diastolic 42–67; PULSE 84–117; RESP 18–20; TEMP 35.8–36.8; O2SAT 96–100
[2020-10-14 07:21] LABS: Add Urine Microscopic? YES; Appearance Urine Turbid (Clear); Bacteria Urine Trace /hpf; Bilirubin Urine Negative (Negative); Blood Urine 2+ (Negative); Budding Yeast Urine Present /hpf; Color Urine Yellow (Yellow); Glucose Urine UA Negative (Negative); Ketones Urine Negative (Negative); Leukocyte Esterase Ur 3+ LEU/UL (Negative); Nitrate Urine Negative (Negative); Protein Urine 2+ mg/dL (Negative); RBC Urine 21-50 /hpf (0-2); Specific Grav Ur 1.009 (1.001-1.035); Urobilinogen Urine Negative mg/dL (<2.0); WBC Clumps Urine Present /HPF; WBC Urine >75 /hpf
[2020-10-14] MEDS: APIXABAN 5 MG TABLET PO ×2 (09:33→20:35)
[2020-10-14] MEDS: ATORVASTATIN 40 MG TABLET PO (09:33)
[2020-10-14] MEDS: ASPIRIN 81 MG CHEWABLE TABLET PO (09:33)
[2020-10-14] MEDS: lisinopriL 2.5 MG TABLET PO (09:33)
[2020-10-14] MEDS: METOPROLOL SUCCINATE EXT REL 12.5 MG TABCR PO (09:33)
[2020-10-14] MEDS: SOD HYPOCHLORITE 1/4 STRENGTH 473 ML 1 APPLIC TOPICAL ×2 (09:33→20:36)
[2020-10-14] MEDS: ACETAMINOPHEN 325 MG TABLET 650 MG PO ×2 (09:39→20:35)
--- NOTE | 2020-10-14 11:03 | PM.IMHP ---
H&P: HPI History of Present Illness Date/Time: 10/14/20 11:03 Chief Complaint: near syncope Narrative: Saad Yarbrough is a 75 year old male with a history of dementia, chronic decubitus ulcer, cardiomyopathy with an EF of 20-25%, chronic CKD currently on dialysis, who presented to the emergency room from the dialysis center after a near syncopal episode. Patient states he was sitting up at dialysis waiting for his treatment when he felt lightheaded. They found his blood pressure to be low and was brought into the hospital for further evaluation. On arrival to the emergency room his blood pressure was 69/45, heart rate bradycardic at 47, afebrile, normal respiratory rate and 100% on room air. Initial labs showed leukocytosis at 13,800, stable normocytic anemia with a hemoglobin of 8.8, 27% hematocrit, PTT 22.4, INR 1.9, hyponatremia at 129, RENETTA with a creatinine at 2.1, BUN 30. Troponin was initially elevated 0.401 and repeat was lower at 0.375. Chest x-ray Showed right perihilar infiltrates suspicious for pneumonia. CT brain showed stable mild nonspecific cerebral white matter disease. No acute abnormality noted. The patient is overall poor historian with history of some dementia. Currently at this time he is just complaining of pain to his decubitus ulcer which has been a chronic issue since August of 2020. He denies any chest pain, shortness of breath, cough, fever, chills, nausea, vomiting, abdominal pain, diarrhea, constipation, leg swelling, calf pain, headache, vision changes, or any other symptoms at this time. The patient states he has not been eating or drinking well lately. The patient is well-known to our hospital with his multiple admissions since August of 2020 where he came in with COVID-19, acute respiratory failure with hypoxia, bacterial pneumonia from aspiration due to underlying Parkinson's disease and was discharged on 09/08/2020 and came back to the emergency room on 09/13/2020 with altered mental status, acute respiratory failure with hypoxia, decubitus ulcer which was evaluated by surgery without needing debridement at that time, new diagnosis of cardiomyopathy, and was discharged on 10/01/2020 to [facility]. Review of Systems Review of Systems: ROS unobtainable: Yes unobtainable due to medical condition PMFSH Past Medical History Medical History Acute renal failure (ARF) Acute respiratory failure with hypoxia Altered mental status Anxiety Anxiety and depression CAD (coronary artery disease) Cardiomyopathy Depression Discontinued smoking Diverticulitis DVT (deep venous thrombosis) GI bleed Heart attack History of myocardial infarction History of poliomyelitis Hyperlipidemia Hypernatremia Hypertension Macrocytic anemia Macular degeneration disease Malignant melanoma Non-ST elevation [place] (NSTEMI) Parkinsons Paroxysmal atrial fibrillation Sepsis Surgical History Surgical History H/O cardiac catheterization H/O heart artery stent Stents in the proximal circ and OM2 in 2010 History of colonoscopy History of tonsillectomy Family History Family History Mother CHF (congestive heart failure) Father Malignant neoplasm of prostate Leukemia Social History Social History (Updated 10/14/20 @ 17:38 by Diamond Quinn PA-C) Social History: the patient used to smoke until he met his and then he quit. He used to smoke anywhere from a pack to half a pack a day but quit approximately 14 years ago. He rarely drinks. He quit drinking about the same did quit smoking. 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 He had 1 biological child a son who was murdered at the age of 21 related to drug activity. 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 He desires to be a full
--- NOTE | 2020-10-14 11:07 | PM.CNNEP ---
Assessment and Plan Assessment and plan (1) Acute renal failure (ARF): Code(s): N17.9 - Acute kidney failure, unspecified Status: Acute Assessment and Plan: The patient has acute kidney injury. This is most likely due to infection. Lately the patient has been relatively hemodynamically stable. He has been at the longterm getting some physical therapy but really has not gotten out of bed very much. Hence the decubitus ulcer. His creatinine was a little bit lower last time we checked it at [facility] and he has been making some urine. His creatinine here is just above 2 so hopefully his renal function is recovering. Will check another creatinine tomorrow and I will order a 24hour urine creatinine to see where we are. Will hold off on dialysis for now. (2) Acute hypotension: Code(s): I95.9 - Hypotension, unspecified Status: Acute Assessment and Plan: His blood pressure was low at the dialysis unit and was also low at 1st in the ER. he received some IV fluids and he is doing better. I suspect he is not eating very well. I think we can just give him a heart healthy diet since he does not eat well. Need to worry about renal restrictions for now. (3) Decubital ulcer: Qualifiers: Pressure injury location: sacral region Pressure injury stage: unstageable Qualified Code(s): L89.150 - Pressure ulcer of sacral region, unstageable Code(s): L89.90 - Pressure ulcer of unspecified site, unspecified stage Status: Chronic Assessment and Plan: He has a bandage on now. He will get local wound care. (4) Encephalopathy: Code(s): G93.40 - Encephalopathy, unspecified Status: Acute Assessment and Plan: He has underlying dementia. He forgets frequently and feels like his complaints are being on heard but I think he just forgets that they are being addressed. Unfortunately we can't make the pain better. (5) COVID-19 virus infection: Code(s): U07.1 - COVID-19 Status: Acute Assessment and Plan: This was resolved a long time ago. (6) CAD (coronary artery disease): Code(s): I25.10 - Atherosclerotic heart disease of [place] coronary artery without angina pectoris Status: Acute Assessment and Plan: No chest pain or shortness of breath. He does have cardiomyopathy from this. (7) Paroxysmal atrial fibrillation: Code(s): I48.0 - Paroxysmal atrial fibrillation Status: Acute Assessment and Plan: The patient is in sinus rhythm right now with a good rate History of Present Illness Reason for Consult Consult date: 10/14/20 Chief Complaint Chief complaint: SYNCOPE, HYPOTENSION History of Present Illness Narrative: Sisi is a very pleasant gentleman who has multiple medical problems including acute kidney injury, dementia, pre sacral wound, coronary disease, cardiomyopathy, myocardial infarction, paroxysmal atrial fibrillation, anxiety, depression, GI bleed in the past, hypertension, hyperlipidemia, anemia, malignant melanoma, who came into the hospital from the dialysis unit yesterday. For the last week or so the patient has been complaining of pain in the pre sacral wound. He says that he asks the longterm to make sure that he is clean, and that he has his salve applied. While in the chair in dialysis he does complain of discomfort in the presacral region. He tries to stay off of it but is limited because of the nature of being in the chair for 3-1/2 hours. On Thursday, he came to dialysis and while in the waiting room refused to go in to the dialysis suite. He said he is in too much pain and did not think he could make it through the dialysis. He became increasingly agitated. At 1 point he became dizzy so the nurses checked his blood pressure and it was low so he was sent to the emergency room. In the emergency room he was evaluated found to have mildly low blood pressure so h
[2020-10-14] MEDS: HYDROcodone/acetaminophen (*CRX) 5-325 MG TABLET 1 TAB PO (12:02)
[2020-10-14 12:31] LABS: Iron 13 ug/dL (49-181)
[2020-10-14 12:40] LABS: Percent Iron Saturation 8 % (20-50)
[2020-10-14] MEDS: SODIUM CHLORIDE 0.9% IV 1,000 ML 100 ML IV CONT ×2 (17:33→23:16)
[2020-10-14] MEDS: rOPINIRole HCL 1 MG TABLET 2 MG PO (20:35)
[2020-10-15] VITALS (13 sets, daily range): BP systolic 96–126; BP diastolic 51–60; PULSE 84–106; RESP 18–26; TEMP 35.9–36.7; O2SAT 96–99; BMI 27.6
[2020-10-15] MEDS: ACETAMINOPHEN 325 MG TABLET 650 MG PO ×4 (05:35→21:50)
[2020-10-15 05:44] LABS: Basophils Percent Auto 0.4 % (0.2-1.2); Eosinophils Absolute Auto 0.1 K/mm3 (0-0.3); Eosinophils Percent Auto 0.7 % (0-4.4); Hematocrit 25.5 % (42.0-52.0); Immature Granulocyte Absolute 0.06 K/mm3 (0.00-0.031); Immature Granulocyte Percent A 0.6 % (0-0.5); Lymphocytes Percent Auto 16.8 % (18.3-44.2); Mean Corpuscular HGB Conc 31.4 g/dl (32-36); Mean Corpuscular Volume 89.2 fl (80-100); Mean Platelet Volume 9.8 fl (7.4-10.4); Monocytes Absolute Auto 0.9 K/mm3 (0.1-0.6); Monocytes Percent Auto 9.2 % (2.6-8.5); Neutrophils Absolute Auto 6.9 K/mm3 (1.3-6.7); Neutrophils Percent Auto 72.3 % (45.5-73.1); Platelet Count Result 332 k/mm3 (150-375); Red Blood Count 2.86 M/mm3 (4.6-6.20); Red Cell Distribution Width 15.7 % (11.5-14.5); White Blood Count 9.5 K/mm3 (4.5-10.0)
[2020-10-15 05:55] LABS: Lactic Acid Reflex 1.3 mmol/L (0.7-2.1)
[2020-10-15 06:25] LABS: Albumin Level 2.6 g/dL (3.5-5.1); Anion Gap 6 mmol/L (8-16); Blood Urea Nitrogen 33 mg/dL (9-20); Calcium 7.5 mg/dL (8.4-10.2); Carbon Dioxide 30 mmol/L (22-30); Chloride 94 mmol/L (98-107); Estimated CRCL calculation 26 ml/min; Estimated Glomerular Filt Rate 33; Glucose 99 mg/dL (75-110); Magnesium 1.4 mg/dL (1.6-2.3); Potassium 3.1 mmol/L (3.4-5.0); Sodium 130 mmol/L (137-145)
[2020-10-15 07:09] LABS: CRP 22.3 mg/dL (<1.0)
[2020-10-15] MEDS: ASPIRIN 81 MG CHEWABLE TABLET PO (10:55)
[2020-10-15] MEDS: APIXABAN 5 MG TABLET PO ×2 (10:55→21:28)
[2020-10-15] MEDS: ATORVASTATIN 40 MG TABLET PO (10:56)
[2020-10-15] MEDS: METOPROLOL SUCCINATE EXT REL 12.5 MG TABCR PO (10:56)
[2020-10-15] MEDS: POTASSIUM CHLORIDE 20 MEQ TABLET 40 MEQ PO (10:56)
[2020-10-15] MEDS: MAGNESIUM SULFATE 3GM/D5W100ML 3 GM/100 ML BAG IVPB (10:56)
--- NOTE | 2020-10-15 12:38 | PM.IMPN ---
Progress Note: A&P Assessment and Plan (1) Sepsis: Code(s): A41.9 - Sepsis, unspecified organism Status: Acute Assessment and Plan: Patient meets criteria for sepsis with hypotension, tachycardia and leukocytosis in the setting of possible pneumonia versus UTI verses decubitus ulcer infection. Patient was started on IV antibiotics with Zosyn Blood cultures, wound cultures, urine cultures are pending. Patient remains afebrile, stable blood pressure, intermittent tachycardic heart rate throughout the day, normal oxygenation on room air and respiratory rate. Leukocytosis improved today. Continue monitor vital signs and leukocytosis. (2) Acute hypotension: Code(s): I95.9 - Hypotension, unspecified Status: Acute Assessment and Plan: Most likely secondary to dehydration secondary to sepsis verses lack of appetite and eating. He was given IV fluids in the ER with improvement of his blood pressure. Blood pressure is improved today with IV fluid hydration, 126/57. Continue IV fluids due to sepsis and dehydration. Continue monitoring respiratory status with IV fluid hydration Continue monitoring BP (3) Decubital ulcer: Qualifiers: Pressure injury location: sacral region Pressure injury stage: unstageable Qualified Code(s): L89.150 - Pressure ulcer of sacral region, unstageable Code(s): L89.90 - Pressure ulcer of unspecified site, unspecified stage Status: Chronic Assessment and Plan: Very large stage IV decubitus ulcer. Suspicious for possible infection due to follow odor. IV antibiotics have been started on the patient Wound culture was taken Will wait for wound nurse to evaluate and surgery has been consulted. Continue monitoring (4) Near syncope: Code(s): R55 - Syncope and collapse Status: Acute Assessment and Plan: Most likely secondary to hypotension, dehydration as well as infection. Improved with IV fluids (5) Acute renal failure (ARF): Code(s): N17.9 - Acute kidney failure, unspecified Status: Acute Assessment and Plan: Last admission patient had a dialysis catheter placed and has been receiving dialysis. Currently on admission his creatinine was 2.[address] Lee the psychology fellow states is more elevated than it has been. Currently has AKF most likely due to infection versus dehydration. Renal function improved to 2.0 today. Nephrology is ordering a 24 hour urine creatinine Hold on dialysis at this time Continue monitoring renal function and Nephrology's input is greatly appreciated. (6) CAD (coronary artery disease): Code(s): I25.10 - Atherosclerotic heart disease of [place] coronary artery without angina pectoris Status: Acute Assessment and Plan: Denies any chest pain at this time. Continue aspirin at home medications. Continue monitoring. (7) Cardiomyopathy: Code(s): I42.9 - Cardiomyopathy, unspecified Status: Acute Assessment and Plan: Last admission found to have systolic EF of 20-25%. Will continue monitoring fluid status to ensure we do not fluid overload him due to his dehydration. Do not feel cardiology needs to be on the case at this time but if he continues to have hypotension or worsening issues may need to consult them. Continue monitoring respiratory status and fluid status with IV fluid hydration due to sepsis and dehydration. (8) Paroxysmal atrial fibrillation: Code(s): I48.0 - Paroxysmal atrial fibrillation Status: Acute Assessment and Plan: Telemetry shows normal sinus rhythm with a heart rate in th
[2020-10-15] MEDS: EPOETIN ALFA-EPBX 10,000 UNITS/ML VIAL 10000 UNITS SUB-Q (13:05)
[2020-10-15] MEDS: SOD HYPOCHLORITE 1/4 STRENGTH 473 ML 1 APPLIC TOPICAL (14:12)
[2020-10-15] MEDS: MORPHINE SULFATE (*CRX) 2 MG/ML INJ IV PUSH ×3 (14:13→21:50)
[2020-10-15] MEDS: LIDOCAINE 5% PATCH 1 PATCH TRANSDERM (14:13)
--- NOTE | 2020-10-15 14:33 | PM.CNGS ---
Assessment and Plan Assessment and plan (1) Sacral decubitus ulcer: Code(s): L89.159 - Pressure ulcer of sacral region, unspecified stage Status: Acute Assessment and Plan: Sacral decubitus ulcer now has significant amount of necrotic tissue that will require surgical debridement. Discussed with patient that this is a very large wound that may never heal and will require adequate nutrition and offloading of pressure to the area. I have recommended debridement of sacral decubitus ulcer in the operating room under anesthesia tomorrow. Further wound care needs will be assessed at the time of procedure. (2) Heel ulcer: Code(s): L97.409 - Non-pressure chronic ulcer of unspecified heel and midfoot with unspecified severity Status: Acute Assessment and Plan: Current heel ulcer has necrotic surface but no signs of deep tissue infection. Will continue pressure relief and local wound care at this time. (3) Acute hypotension: Code(s): I95.9 - Hypotension, unspecified Status: Acute Assessment and Plan: More stable since being admitted. Likely secondary to dehydration and ongoing infection. (4) Near syncope: Code(s): R55 - Syncope and collapse Status: Acute (5) Encephalopathy: Code(s): G93.40 - Encephalopathy, unspecified Status: Acute (6) Acute renal failure (ARF): Code(s): N17.9 - Acute kidney failure, unspecified Status: Acute History of Present Illness Consult details Consult date: 10/15/20 Reason for consult: wound care Requesting physician: Diamond Quinn PA-C Narrative: This is a 75-year-old man who I am asked to see in consultation for a sacral decubitus ulcer. My group had also seen him previously for this decubitus ulcer about 2 weeks ago when he was in the hospital. [facility], but the wound has worsened since that time. He now has large open ulcer with necrotic tissue. He was readmitted for syncope and dehydration. He was reportedly waiting for dialysis when he became very weak. Patient states he was unaware that his wound was this bad until he was shown a picture today. He does have a lot of pain in the sacral region and states he has difficulty sleeping due to this. Review of Systems Constitutional: Constitutional: Denies chills and Denies fever(s) Musculoskeletal: Musculoskeletal: Reports muscle weakness Integumentary/Breasts: Skin/Breast: Reports as per [facility] Past Medical History Medical History Acute renal failure (ARF) Acute respiratory failure with hypoxia Altered mental status Anxiety Anxiety and depression CAD (coronary artery disease) Cardiomyopathy Depression Discontinued smoking Diverticulitis DVT (deep venous thrombosis) GI bleed Heart attack History of myocardial infarction History of poliomyelitis Hyperlipidemia Hypernatremia Hypertension Macrocytic anemia Macular degeneration disease Malignant melanoma Non-ST elevation [place] (NSTEMI) Parkinsons Paroxysmal atrial fibrillation Sepsis Surgical History Surgical History H/O cardiac catheterization H/O heart artery stent Stents in the proximal circ and OM2 in 2010 History of colonoscopy History of tonsillectomy Family History Family History Mother CHF (congestive heart failure) Father Malignant neoplasm of prostate Leukemia Social History Social History Social History: the patient used to smoke until he met his and then he quit. He used to smoke anywhere from a pack to half a pack a day but quit approximately 14 years ago. He rarely drinks. He quit drinking about the same did quit smoking. 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
[2020-10-15 17:07] LABS: Total Volume 24 Hour Urine 800 ml
[2020-10-15 17:15] LABS: Creatinine 24 Hour Urine 0.6 gm/24 (1.0-2.0); Creatinine Urine 77.9 mg/dL
--- NOTE | 2020-10-15 19:13 | PM.PNNEP ---
Progress Note: A&P Assessment and Plan (1) Acute renal failure (ARF): Code(s): N17.9 - Acute kidney failure, unspecified Status: Acute Assessment and Plan: thought to be secondary to ATN from previous infection and hemodyanmic instability was requiring renal replacement therapy/dialysis however, renal function has been improving associated with better urine output -- hence, his kidney function may be recovering hold dialysis for now and follow trend of repeat labs and UOP (2) Acute hypotension: Code(s): I95.9 - Hypotension, unspecified Status: Acute Assessment and Plan: appears to be doing better at this time s/p IVF resuscitation follow intake (oral) for now (3) Decubital ulcer: Qualifiers: Pressure injury location: sacral region Pressure injury stage: unstageable Qualified Code(s): L89.150 - Pressure ulcer of sacral region, unstageable Code(s): L89.90 - Pressure ulcer of unspecified site, unspecified stage Status: Chronic Assessment and Plan: local wound care (4) Encephalopathy: Code(s): G93.40 - Encephalopathy, unspecified Status: Acute Assessment and Plan: has underling dementia follow mentation Will continue to follow. Subjective Date/time seen: 10/15/20 19:13 Seems to be doing reasonably well today -- eating and drinking okay; no apparent distress noted; no events overnight or earlier this AM. Exam Narrative: Exam Narrative: General: WD/WN male in NAD Heart: normal S1 and S2; no rub Lungs: clear to auscultation Abdomen: soft, nontender, nondistended, positive bowel sounds Extremities: no cyanosis or clubbing; no edema Skin: warm and dry Objective Data Vital Signs Vital Signs: Vital Signs - 24 hr 10/15/20 04:00 10/15/20 05:52 10/15/20 08:00 Temperature 36.5 C 36.7 C Pulse Rate 105 H 102 H 84 Respiratory Rate 20 26 H Blood Pressure 126/57 L 108/60 Pulse Oximetry 97 97 10/15/20 10:00 10/15/20 10:56 10/15/20 12:00 Temperature Pulse Rate 98 106 H 104 H Respiratory Rate Blood Pressure Pulse Oximetry 10/15/20 16:00 10/15/20 17:50 Temperature 36.2 C L 35.9 C L Pulse Rate 94 88 Respiratory Rate 22 H 22 H Blood Pressure 104/51 L 98/54 L Pulse Oximetry 99 96 Intake/Output Intake/Output: Intake & Output 10/12/20 10/13/20 10/14/20 10/15/20 23:59 23:59 23:59 23:59 Intake Total 3330 400 Output Total 1150 300 Balance 2180 100 Meds/Results Medications: Active Medications Generic Name Dose Route Start Last Admin Trade Name Freq PRN Reason Stop Dose Admin Acetaminophen 650 mg 10/14/20 02:53 10/15/20 17:37 Acetaminophen 325 Mg Tablet PO 650 mg Q4H PRN Administration Mild Pain (1-3) Or Fever Apixaban 5 mg 10/14/20 09:00 10/15/20 10:55 Apixaban 5 Mg Tablet PO 5 mg Q12HR ANABEL Administration Aspirin 81 mg 10/14/20 08:00 10/15/20 10:55 Aspirin 81 Mg Chewable Tablet PO 81 mg DAILY@0800 ANABEL Administration Atorvastatin Calcium 40 mg 10/14/20 09:00 10/15/20 10:56 Atorvastatin 40 Mg Tablet PO 40 mg DAILY ANABEL Administration Epoetin Andrei-epbx 10,000 units 10/15/20 09:00 10/15/20 13:05 Epoetin Andrei-Epbx 10,000 Units/Ml Vial SUB-Q 10,000 units MoWeFr@0900 ANABEL Administration Piperacillin Sod/Tazobactam Sod 2.25 gm in 50 mls @ 100 mls/hr 10/14/20 12:45 10/15/20 14:13 Zosyn 2.25 Gm/D5w 50 Ml IVPB Infused Q8H ANABEL Infusion Piperacillin Sod/Tazobactam 50 mls @ 50 mls/hr 10/15/20 16:00 10/15/20 17:37 Sod 0.75 gm/ Dextrose IVPB 50 mls/hr MoWeFr@1600 ANABEL Administration Sodium Chloride 1,000 mls @ 100 mls/hr 10/14/20 17:25 10/14/20 23:16 Normal Saline Iv IV CONT 100 mls/hr .Q10H ANABEL Administration Lidocaine 1 patch 10/15/20 14:00 10/15/20 14:13 Lidocaine 5% Patch TRANSDERM 1 patch DAILY ANABEL Administration Lisinopril 2.5 mg 10/14/20 09:00 10/14/20 09:33 Lis
[2020-10-15] MEDS: rOPINIRole HCL 1 MG TABLET 2 MG PO (21:28)
[2020-10-16] VITALS (14 sets, daily range): BP systolic 77–126; BP diastolic 47–71; PULSE 94–108; RESP 14–21; TEMP 36.5–37.2; O2SAT 95–100; BMI 10.0
[2020-10-16] MEDS: SODIUM CHLORIDE 0.9% IV 1,000 ML 100 ML IV CONT ×3 (00:24→19:36)
[2020-10-16] MEDS: SOD HYPOCHLORITE 1/4 STRENGTH 473 ML 1 APPLIC TOPICAL ×2 (00:33→11:41)
[2020-10-16] MEDS: MORPHINE SULFATE (*CRX) 2 MG/ML INJ IV PUSH ×3 (01:48→20:26)
[2020-10-16 05:22] LABS: Basophils Absolute Auto 0.1 K/mm3 (0.0-0.1); Basophils Percent Auto 0.8 % (0.2-1.2); Eosinophils Absolute Auto 0.1 K/mm3 (0-0.3); Eosinophils Percent Auto 1.4 % (0-4.4); Hematocrit 26.2 % (42.0-52.0); Hemoglobin 8.1 g/dL (14.0-18.0); Immature Granulocyte Absolute 0.06 K/mm3 (0.00-0.031); Immature Granulocyte Percent A 0.7 % (0-0.5); Lymphocytes Absolute Auto 1.37 K/mm3 (0.9-3.2); Lymphocytes Percent Auto 15.9 % (18.3-44.2); Mean Corpuscular HGB Conc 30.9 g/dl (32-36); Mean Corpuscular Hemoglobin 27.7 pg (26-34); Mean Corpuscular Volume 89.7 fl (80-100); Mean Platelet Volume 9.6 fl (7.4-10.4); Monocytes Absolute Auto 0.6 K/mm3 (0.1-0.6); Monocytes Percent Auto 6.5 % (2.6-8.5); Neutrophils Absolute Auto 6.5 K/mm3 (1.3-6.7); Neutrophils Percent Auto 74.7 % (45.5-73.1); Platelet Count Result 343 k/mm3 (150-375); Red Blood Count 2.92 M/mm3 (4.6-6.20); Red Cell Distribution Width 15.6 % (11.5-14.5); White Blood Count 8.6 K/mm3 (4.5-10.0)
[2020-10-16 05:31] LABS: Albumin Level 2.4 g/dL (3.5-5.1); Anion Gap 5 mmol/L (8-16); Blood Urea Nitrogen 31 mg/dL (9-20); Carbon Dioxide 27 mmol/L (22-30); Chloride 99 mmol/L (98-107); Estimated CRCL calculation 29 ml/min; Estimated Glomerular Filt Rate 37; Glucose 94 mg/dL (75-110); Magnesium 1.7 mg/dL (1.6-2.3); Phosphorus 2.4 mg/dL (2.5-4.5); Potassium 3.4 mmol/L (3.4-5.0); Sodium 131 mmol/L (137-145)
[2020-10-16] MEDS: ASPIRIN 81 MG CHEWABLE TABLET PO (11:10)
--- NOTE | 2020-10-16 11:29 | PM.PNNEP ---
Progress Note: A&P Assessment and Plan (1) Acute renal failure (ARF): Code(s): N17.9 - Acute kidney failure, unspecified Status: Acute Assessment and Plan: thought to be secondary to ATN from previous infection and hemodyanmic instability was requiring renal replacement therapy/dialysis as an outpatient however, renal function has been improving associated with better urine output -- hence, his kidney function may be recovering holding dialysis for now and following trend of repeat labs and UOP (2) Acute hypotension: Code(s): I95.9 - Hypotension, unspecified Status: Acute Assessment and Plan: appears to be doing better at this time s/p IVF resuscitation concern that infection/sepsis (#3) is playing a role on top of volume depletion/dehydration his underlying cardiomyopathy may be contributing as well follow trend of hemodynamics (3) Decubital ulcer: Qualifiers: Pressure injury location: sacral region Pressure injury stage: unstageable Qualified Code(s): L89.150 - Pressure ulcer of sacral region, unstageable Code(s): L89.90 - Pressure ulcer of unspecified site, unspecified stage Status: Chronic Assessment and Plan: potential etiology of sepsis criteria (hypotension, tachycardia and leukocytosis) on antibiotic therapy blood cultures negative Surgery following -- planning debridement today (4) Encephalopathy: Code(s): G93.40 - Encephalopathy, unspecified Status: Acute Assessment and Plan: has underling dementia follow mentation Will continue to follow. Subjective Date/time seen: 10/16/20 11:29 Continue to do reasonably well; remains hemodynamically stable at this time; major complaint is that of back pain; no other events/issues overnight or earlier this AM; seen by Surgery and tentatively scheduled for debridement today; no apparent distress noted at the time of my visit. Exam Narrative: Exam Narrative: General: WD/WN male in NAD Heart: normal S1 and S2; no rub Lungs: clear to auscultation Abdomen: soft, nontender, nondistended, positive bowel sounds Extremities: no cyanosis or clubbing; no edema Skin: warm and dry Objective Data Vital Signs Vital Signs: Vital Signs Temp Pulse Resp BP Pulse Ox 10/16/20 09:03 36.6 C 103 H 20 112/59 L 97 10/16/20 04:00 94 10/15/20 23:42 36.6 C 86 18 96/52 L 98 10/15/20 20:00 36.6 C 96 18 99/55 L 97 10/15/20 17:50 35.9 C L 88 22 H 98/54 L 96 10/15/20 16:00 36.2 C L 88 22 H 104/51 L 99 10/15/20 14:00 99 10/15/20 12:00 104 H Intake/Output Intake/Output: Intake & Output 10/13/20 10/14/20 10/15/20 10/16/20 23:59 23:59 23:59 23:59 Intake Total 3330 2760 1150 Output Total 1150 1000 650 Balance 2180 1760 500 Meds/Results Medications: Active Medications Generic Name Dose Route Start Last Admin Trade Name Otonielq PRN Reason Stop Dose Admin Acetaminophen 650 mg 10/14/20 02:53 10/15/20 21:50 Acetaminophen 325 Mg Tablet PO 650 mg Q4H PRN Administration Mild Pain (1-3) Or Fever Apixaban 5 mg 10/14/20 09:00 10/15/20 21:28 Apixaban 5 Mg Tablet PO 5 mg Q12HR ANABEL Administration Aspirin 81 mg 10/14/20 08:00 10/16/20 11:10 Aspirin 81 Mg Chewable Tablet PO 81 mg DAILY@0800 ANABEL Administration Atorvastatin Calcium 40 mg 10/14/20 09:00 10/15/20 10:56 Atorvastatin 40 Mg Tablet PO 40 mg DAILY ANABEL Administration Epoetin Andrei-epbx 10,000 units 10/15/20 09:00 10/15/20 13:05 Epoetin Andrei-Epbx 10,000 Units/Ml Vial SUB-Q 10,000 units MoWeFr@0900 ANABEL Administration Piperacillin Sod/Tazobactam 50 mls @ 50 mls/hr 10/15/20 16:00 10/15/20 20:37 Sod 0.75 gm/ Dextrose IVPB Infused MoWeFr@1600 ANABEL Infusion Sodium Chloride 1,000 mls @ 100 mls/hr 10/14/20 17:25 10/16/20 11:28 Normal Saline Iv IV CONT 100 mls/hr .Q10H ANABEL Administration Piperacillin S
[2020-10-16] MEDS: ATORVASTATIN 40 MG TABLET PO (11:44)
[2020-10-16] MEDS: METOPROLOL SUCCINATE EXT REL 12.5 MG TABCR PO (11:44)
[2020-10-16] MEDS: LIDOCAINE 5% PATCH 1 PATCH TRANSDERM (11:44)
[2020-10-16] MEDS: APIXABAN 5 MG TABLET PO ×2 (11:45→20:26)
[2020-10-16] MEDS: lisinopriL 2.5 MG TABLET PO (11:45)
--- NOTE | 2020-10-16 14:35 | WPDANESEPPF ---
Anes - Initial Pre Proc Eval Procedure: Operation Date: 10/16/20 15:30 Proposed Procedures p Debridement Sacral Decubitus Ulcer - Alvaro Mercer DO Date/Time: 10/16/20 14:35 Surgeon: Diamond Quinn PA-C Pre Op Diagnosis: SYNCOPE, HYPOTENSION Patient Data Age: 75 Gender: M Height: 5 ft 7 in Weight: 80 kg Last Vital Signs Temp 36.5 C 10/16/20 13:07 Pulse 108 H 10/16/20 13:07 Resp 20 10/16/20 13:07 BP 110/51 L 10/16/20 13:07 Pulse Ox 98 10/16/20 13:07 Allergies Allergy/AdvReac Type Severity Reaction Status Date / Time No Known Allergies Allergy Unknown Verified 10/16/20 14:28 Home Medications Medication Instructions Recorded Confirmed Type atorvastatin 40 mg PO DAILY 08/12/20 10/13/20 History metoprolol succinate 25 mg PO DAILY 08/12/20 10/13/20 History primidone 500 mg PO QID 08/12/20 10/13/20 History acetaminophen [Mapap 650 mg PO Q4H PRN #30 tablet 09/08/20 10/13/20 Rx (acetaminophen)] apixaban [Eliquis] 5 mg PO Q12HR #60 tablet 10/01/20 10/13/20 Rx aspirin [Children's Aspirin] 81 mg PO DAILY@0800 #30 tablet 10/01/20 10/13/20 Rx lisinopril 2.5 mg PO SuTuThSa@0900 #20 tablet 10/01/20 10/13/20 Rx miconazole nitrate [Aloe [place] 1 applic TOPICAL Q12HR #1692 g 10/01/20 10/13/20 Rx Antifungal (micon)] ropinirole 2 mg PO HS #30 tablet 10/01/20 10/13/20 Rx sodium hypochlorite [[place] 1 applic TOPICAL Q12HR #473 ml 10/01/20 10/13/20 Rx Solution] Laboratory Tests 10/15/20 10/16/20 10/16/20 16:32 04:57 04:57 WBC 8.6 K/mm3 K/mm3 (4.5-10.0) RBC 2.92 M/mm3 L M/mm3 (4.6-6.20) Hgb 8.1 g/dL L g/dL (14.0-18.0) Hct 26.2 % L % (42.0-52.0) MCV 89.7 fl fl (80-100) MCH 27.7 pg pg (26-34) MCHC 30.9 g/dl L g/dl (32-36) RDW 15.6 % H % (11.5-14.5) Plt Count 343 k/mm3 k/mm3 (150-375) MPV 9.6 fl fl (7.4-10.4) Immature Gran % (Auto) 0.7 % H % (0-0.5) Neut % (Auto) 74.7 % H % (45.5-73.1) Lymph % (Auto) 15.9 % L % (18.3-44.2) [place] % (Auto) 6.5 % % (2.6-8.5) Eos % (Auto) 1.4 % % (0-4.4) Baso % (Auto) 0.8 % % (0.2-1.2) Lymph # (Auto) 1.37 K/mm3 K/mm3 (0.9-3.2) [place] # (Auto) 0.6 K/mm3 K/mm3 (0.1-0.6) Eos # (Auto) 0.1 K/mm3 K/mm3 (0-0.3) Baso # (Auto) 0.1 K/mm3 K/mm3 (0.0-0.1) Abs Immat Gran (auto) 0.06 K/mm3 H K/mm3 (0.00-0.031) Absolute Neuts (auto) 6.5 K/mm3 K/mm3 (1.3-6.7) Absolute Nucleated RBC 0.0 K/mm3 K/mm3 (0.0-0.012) Nucleated RBC % 0.0 % % (0.0-0.2) Sodium 131 mmol/L L mmol/L (137-145) Potassium 3.4 mmol/L mmol/L (3.4-5.0) Chloride 99 mmol/L mmol/L (98-107) Carbon Dioxide 27 mmol/L mmol/L (22-30) Anion Gap 5 mmol/L L mmol/L (8-16) BUN 31 mg/dL H mg/dL (9-20) Creatinine 1.80 mg/dL H mg/dL (0.7-1.3) Estim Creat Clear Calc 29 ml/min ml/min Estimated GFR 37 L (59 - ) Glucose 94 mg/dL mg/dL (75-110) Calcium 7.0 mg/dL L mg/dL (8.4-10.2) Phosphorus 2.4 mg/dL L mg/dL (2.5-4.5) Magnesium 1.7 mg/dL mg/dL (1.6-2.3) Albumin 2.4 g/dL L g/dL (3.5-5.1) Ur 24 Hour Volume 800 ml ml Urine Creatinine 77.9 mg/dL mg/dL Ur Creatinine 24 Hour 0.6 gm/24 L gm/24 (1.0-2.0) Patient hx anesthesia problems: none Family hx anesthesia problems: none [facility] Past Medical History Medical History Acute renal failure (ARF) Acute respiratory failure with hypoxia Altered mental status Anxiety Anxiety and depression CAD (coronary artery disease) Cardiomyopathy Depression Discontinued smoking Diverticulitis DVT (deep venous thrombosis) GI bleed Heart attack History of myocardia
[2020-10-16] MEDS: fentaNYL CITRATE INJ (*CRX) 100 MCG/2 ML VIAL 25 MCG IV PUSH (14:44)
[2020-10-16] MEDS: SODIUM CHLORIDE 0.9% IV 500 ML 30 ML IV CONT (15:00)
--- NOTE | 2020-10-16 15:08 | PM.IMPN ---
Progress Note: A&P Assessment and Plan (1) Sepsis: Code(s): A41.9 - Sepsis, unspecified organism Status: Acute Assessment and Plan: Patient meets criteria for sepsis with hypotension, tachycardia and leukocytosis in the setting of possible pneumonia versus UTI verses decubitus ulcer infection. Patient was started on IV antibiotics with Zosyn Blood cultures NG, urine culture brinda, wound growing staph aureus which could be colonization Patient remains afebrile, stable blood pressure, intermittent tachycardic heart rate throughout the day, normal oxygenation on room air and respiratory rate. Continue monitor vital signs and leukocytosis. (2) Acute hypotension: Code(s): I95.9 - Hypotension, unspecified Status: Acute Assessment and Plan: Most likely secondary to dehydration secondary to sepsis verses lack of appetite and eating. He was given IV fluids in the ER with improvement of his blood pressure. Blood pressure is improved with IV fluid hydration, 110/70. Continue IV fluids due to sepsis and dehydration. Continue monitoring respiratory status with IV fluid hydration Continue monitoring BP (3) Decubital ulcer: Qualifiers: Pressure injury location: sacral region Pressure injury stage: unstageable Qualified Code(s): L89.150 - Pressure ulcer of sacral region, unstageable Code(s): L89.90 - Pressure ulcer of unspecified site, unspecified stage Status: Chronic Assessment and Plan: Very large stage IV decubitus ulcer. Suspicious for possible infection due to follow odor. IV antibiotics have been started on the patient Wound culture staph to surgery for debridement today Continue monitoring (4) Near syncope: Code(s): R55 - Syncope and collapse Status: Acute Assessment and Plan: Most likely secondary to hypotension, dehydration as well as infection. Improved with IV fluids (5) Acute renal failure (ARF): Code(s): N17.9 - Acute kidney failure, unspecified Status: Acute Assessment and Plan: Last admission patient had a dialysis catheter placed and has been receiving dialysis. Currently on admission his creatinine was 2.[address] 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 Currently has AKF most likely due to infection versus dehydration. Renal function improved to 1.8 today. Nephrology is ordering a 24 hour urine creatinine Hold on dialysis at this time Continue monitoring renal function and Nephrology's input is greatly appreciated. (6) CAD (coronary artery disease): Code(s): I25.10 - Atherosclerotic heart disease of [place] coronary artery without angina pectoris Status: Acute Assessment and Plan: Denies any chest pain at this time. Continue aspirin at home medications. Continue monitoring. (7) Cardiomyopathy: Code(s): I42.9 - Cardiomyopathy, unspecified Status: Acute Assessment and Plan: Last admission found to have systolic EF of 20-25%. Will continue monitoring fluid status to ensure we do not fluid overload him due to his dehydration. Continue monitoring respiratory status and fluid status with IV fluid hydration due to sepsis and dehydration. (8) Paroxysmal atrial fibrillation: Code(s): I48.0 - Paroxysmal atrial fibrillation Status: Acute Assessment and Plan: Telemetry shows normal sinus rhythm with a heart rate in the 90s. No AFib noted on tele. Continue Eliquis at this time. Subjective Date/time seen: 10/16/20 15:08 Interval history: Date
[2020-10-16 15:18] LABS: Glucose Point of Care 85 (65-105)
--- NOTE | 2020-10-16 15:52 | WPDHPUPDATE1 ---
History and Physical Update Update Date/Time: 10/16/20 15:52 History and Physical has been reviewed, including an updated exam of the patient. There are NO changes in the patient's condition. Risks, benefits, and alternatives have been discussed and questions answered. Patient agrees to proceed with procedure.
--- NOTE | 2020-10-16 16:07 | PC.NURSE ---
This patient, Saad Yarbrough, was transferred to [facility] on 10/16/20 at 1554. Personal belongings sent with patient. Report given to Jessie ROBLES. Appropriate documentation sent with patient.
--- NOTE | 2020-10-16 16:52 | P.OP_ITS ---
Procedure Note - Detailed Date of procedure: 10/16/20 Pre-op diagnosis: Unstageable sacral decubitus ulcer Post-op diagnosis: other (Stage IV sacral decubitus ulcer) Procedure performed: Sharp excisional debridement of stage IV sacral decubitus ulcer including skin, muscle, subcu fat, and bone measuring 10 cm x 14 cm Description of procedure: * Patient was brought back to surgical suite. He was placed supine on operating table. Time-out was done to confirm patient and procedure. He was then intubated by the anesthesia department. He was then repositioned into left lateral decubitus position. His dressing on his sacrum was removed in his sacral area was prepped and draped in sterile fashion using Betadine prep. Sharp excisional debridement the sacral ulcer was carried out using a 10 blade scalpel and curved Olson scissors. The ulcer appeared to include some of his sacrum and coccyx and a piece of the bone was excised and sent to the lab for pathology. Curettes were also used to debride the tissue. Debridement included some of the surrounding skin, subcu fat, muscle, tendon, and bone. After the entire area was adequately debrided, electrocautery was used for hemostasis. The wound bed was then irrigated using sterile saline. The wound was then measured. This was measuring approximately 10 cm x 14 cm and was about 3 cm deep. The wound was then packed with Betadine-soaked 4 in Kerlix gauze. Fluff gauze ABD pad and mesh underwear were then applied. The patient was then awakened from anesthesia, extubated, and transferred to recovery. Anesthesia: GLMA Surgeon: Alvaro Mercer DO Pressure Supervisor: Mabel Johnson NP Estimated blood loss (mL): 20 Packing: Yes (4in Kerlix) Pathology: yes (Sacral decubitus ulcer bone) Complications: No immediate complications Condition: critical Disposition: other (IMU) Findings: This is a 75-year-old man who presented with a worsening sacral ulcer. This was initially identified about 2-3 weeks ago and was treated initially with local wound care. He [facility] the [facility] and has essentially been in mobile since leaving the hospital. The wound was worsening and now he has a large unstageable ulcer. There is necrotic tissue in the bed and foul smelling odor. Decision was made to proceed with the debridement of sacral decubitus ulcer. Sharp excisional debridement was performed. With the measurements were 14 cm x 10 cm. Skin, subcutaneous fat, muscle, tendon, and bone were sharply excised using a 10 blade scalpel and curved Olson scissors. Debridement was carried out down to healthy bleeding tissue. The ulcer appeared to involve the sacrum and coccyx and a portion of the bone wounds excised and sent to the lab for pathology to confirm suspicion of osteomyelitis. The wound was then packed with Betadine soaked 4 in Kerlix gauze.
--- NOTE | 2020-10-16 18:09 | PC.NURSE ---
This patient, Saad Yarbrough, was received from PACU on 10/16/20 at 1809. Patient/family oriented to unit policies and routines
[2020-10-16] MEDS: POTASSIUM CHLORIDE 20 MEQ TABLET 40 MEQ PO (19:35)
[2020-10-16] MEDS: rOPINIRole HCL 1 MG TABLET 2 MG PO (20:26)
[2020-10-17] VITALS (14 sets, daily range): BP systolic 108–124; BP diastolic 57–67; PULSE 51–108; RESP 16–22; TEMP 36.1–37.3; O2SAT 96–100; BMI 10.0
[2020-10-17] MEDS: SODIUM CHLORIDE 0.9% IV 1,000 ML 100 ML IV CONT (03:16)
[2020-10-17] MEDS: MORPHINE SULFATE (*CRX) 2 MG/ML INJ IV PUSH ×5 (03:16→22:12)
[2020-10-17 05:22] LABS: Basophils Absolute Auto 0.1 K/mm3 (0.0-0.1); Basophils Percent Auto 0.8 % (0.2-1.2); Eosinophils Absolute Auto 0.1 K/mm3 (0-0.3); Eosinophils Percent Auto 1.1 % (0-4.4); Hemoglobin 7.9 g/dL (14.0-18.0); Immature Granulocyte Absolute 0.06 K/mm3 (0.00-0.031); Immature Granulocyte Percent A 0.6 % (0-0.5); Lymphocytes Absolute Auto 2.61 K/mm3 (0.9-3.2); Lymphocytes Percent Auto 24.7 % (18.3-44.2); Mean Corpuscular HGB Conc 30.4 g/dl (32-36); Mean Corpuscular Volume 92.2 fl (80-100); Mean Platelet Volume 9.7 fl (7.4-10.4); Monocytes Absolute Auto 0.9 K/mm3 (0.1-0.6); Monocytes Percent Auto 8.2 % (2.6-8.5); Neutrophils Absolute Auto 6.8 K/mm3 (1.3-6.7); Neutrophils Percent Auto 64.6 % (45.5-73.1); Platelet Count Result 338 k/mm3 (150-375); Red Blood Count 2.82 M/mm3 (4.6-6.20); Red Cell Distribution Width 15.9 % (11.5-14.5); White Blood Count 10.6 K/mm3 (4.5-10.0)
[2020-10-17 05:36] LABS: Albumin Level 2.4 g/dL (3.5-5.1); Anion Gap 3 mmol/L (8-16); Blood Urea Nitrogen 27 mg/dL (9-20); Calcium 7.6 mg/dL (8.4-10.2); Carbon Dioxide 28 mmol/L (22-30); Chloride 103 mmol/L (98-107); Estimated CRCL calculation 31 ml/min; Estimated Glomerular Filt Rate 39; Glucose 79 mg/dL (75-110); Phosphorus 2.9 mg/dL (2.5-4.5); Potassium 3.9 mmol/L (3.4-5.0); Sodium 134 mmol/L (137-145)
--- NOTE | 2020-10-17 07:46 | P.PNAN_ITS ---
Anes - Prog Note Post-Op Date/Time: 10/17/20 07:46 Cardiovascular status: normal Respiratory status: normal Airway patency: baseline Mental status: baseline Post-Op hydration status: normal Vital Signs: Last Vital Signs Temp 37.0 C 10/17/20 04:00 Pulse 94 10/17/20 04:40 Resp 20 10/17/20 04:00 BP 114/67 10/17/20 04:00 Pulse Ox 96 10/17/20 04:00 Pain Score (VAS): 0 I/O: Intake & Output 10/16/20 10/16/20 10/17/20 15:59 23:59 07:59 Intake Total 1050 1050 1200 Output Total 425 750 Balance 625 1050 450 Laboratory Tests 10/17/20 05:02 10/17/20 05:02 10/16/20 10/17/20 10/17/20 15:15 05:02 05:02 WBC 10.6 H RBC 2.82 L Hgb 7.9 L Hct 26.0 L MCV 92.2 MCH 28.0 MCHC 30.4 L RDW 15.9 H Plt Count 338 MPV 9.7 Immature Gran % (Auto) 0.6 H Neut % (Auto) 64.6 Lymph % (Auto) 24.7 [place] % (Auto) 8.2 Eos % (Auto) 1.1 Baso % (Auto) 0.8 Lymph # (Auto) 2.61 [place] # (Auto) 0.9 H Eos # (Auto) 0.1 Baso # (Auto) 0.1 Abs Immat Gran (auto) 0.06 H Absolute Neuts (auto) 6.8 H Absolute Nucleated RBC 0.0 Nucleated RBC % 0.0 Sodium 134 L Potassium 3.9 Chloride 103 Carbon Dioxide 28 Anion Gap 3 L BUN 27 H Creatinine 1.70 H Estim Creat Clear Calc 31 Estimated GFR 39 L Glucose 79 POC Capillary Glucose 85 Calcium 7.6 L Phosphorus 2.9 Albumin 2.4 L Microbiology 10/14/20 07:02 Urine Clean Catch Urine Culture - Final Mala albicans 10/14/20 12:26 Decubitus Ulcer Wound Culture - Preliminary Staphylococcus aureus Post-procedural complaints: none Patient Feedback: Patient satisfied with anesthetic care.
[2020-10-17] MEDS: METOPROLOL SUCCINATE EXT REL 12.5 MG TABCR PO (09:07)
[2020-10-17] MEDS: ASPIRIN 81 MG CHEWABLE TABLET PO (09:07)
[2020-10-17] MEDS: LIDOCAINE 5% PATCH 1 PATCH TRANSDERM (09:07)
[2020-10-17] MEDS: APIXABAN 5 MG TABLET PO ×2 (09:08→22:00)
[2020-10-17] MEDS: ATORVASTATIN 40 MG TABLET PO (09:08)
[2020-10-17] MEDS: EPOETIN ALFA-EPBX 10,000 UNITS/ML VIAL 10000 UNITS SUB-Q (09:18)
--- NOTE | 2020-10-17 12:16 | PM.PNGS ---
Progress Note: A&P Assessment and Plan (1) Decubitus ulcer of sacral region, stage 4: Code(s): L89.154 - Pressure ulcer of sacral region, stage 4 Status: Acute Assessment and Plan: Continue local wound care. Wound is very extensive and may also have osteomyelitis. Low chances of healing even with optimal nutrition and would care. Main goal will be preventing infection and preventing worsening wounds. Subjective Subjective Date/Time Seen: 10/17/20 12:16 Doing OK on POD#1. No new complaints. Exam Skin: Other: Dressing and packing removed. Some blood clot within wound bed, but no purulent drainage. Wound packed with Betadine soaked Kerlix gauze, fluff gauze, ABD pad. Objective Data Vital Signs Vital Signs: Vital Signs - 24 hr 10/16/20 13:07 10/16/20 15:09 10/16/20 16:51 Temperature 36.5 C 36.5 C 37.2 C Pulse Rate 108 H 95 95 Respiratory Rate 20 20 18 Blood Pressure 110/51 L 126/63 77/51 L Pulse Oximetry 98 100 100 10/16/20 17:00 10/16/20 17:15 10/16/20 17:30 Temperature Pulse Rate 95 98 97 Respiratory Rate 21 H 18 17 Blood Pressure 87/56 L 83/56 L 99/71 L Pulse Oximetry 99 100 99 10/16/20 17:45 10/16/20 18:00 10/16/20 18:16 Temperature Pulse Rate 99 98 103 H Respiratory Rate 20 18 14 Blood Pressure 84/53 L 91/71 L 102/59 L Pulse Oximetry 98 95 10/16/20 19:42 10/16/20 23:37 10/17/20 00:00 Temperature 36.5 C 36.5 C Pulse Rate 99 94 91 Respiratory Rate 20 18 Blood Pressure 95/47 L 91/50 L Pulse Oximetry 97 99 10/17/20 02:00 10/17/20 04:00 10/17/20 04:40 Temperature 37.0 C Pulse Rate 91 99 94 Respiratory Rate 20 Blood Pressure 114/67 Pulse Oximetry 96 10/17/20 06:00 10/17/20 08:00 10/17/20 09:07 Temperature 36.2 C L Pulse Rate 88 93 99 Respiratory Rate 20 Blood Pressure 124/66 Pulse Oximetry 100 10/17/20 11:05 Temperature 36.2 C L Pulse Rate 93 Respiratory Rate 20 Blood Pressure 116/63 Pulse Oximetry 98 Intake/Output Intake/Output: Intake & Output 10/14/20 10/15/20 10/16/20 10/17/20 23:59 23:59 23:59 23:59 Intake Total 3330 2760 2250 1250 Output Total 1150 1000 1075 750 Balance 2180 1760 1175 500 Meds/Results Medications: Active Medications Generic Name Dose Route Start Last Admin Trade Name Freq PRN Reason Stop Dose Admin Acetaminophen 650 mg 10/14/20 02:53 10/15/20 21:50 Acetaminophen 325 Mg Tablet PO 650 mg Q4H PRN Administration Mild Pain (1-3) Or Fever Apixaban 5 mg 10/14/20 09:00 10/17/20 09:08 Apixaban 5 Mg Tablet PO 5 mg Q12HR ANABEL Administration Aspirin 81 mg 10/14/20 08:00 10/17/20 09:07 Aspirin 81 Mg Chewable Tablet PO 81 mg DAILY@0800 ANABEL Administration Atorvastatin Calcium 40 mg 10/14/20 09:00 10/17/20 09:08 Atorvastatin 40 Mg Tablet PO 40 mg DAILY ANABEL Administration Epoetin Andrei-epbx 10,000 units 10/15/20 09:00 10/17/20 09:18 Epoetin Andrei-Epbx 10,000 Units/Ml Vial SUB-Q 10,000 units MoWeFr@0900 ANABEL Administration Fentanyl Citrate 25 mcg 10/16/20 15:44 Fentanyl Citrate Inj (*Crx) 100 Mcg/2 Ml Vial IV PUSH Q2M PRN Pain Piperacillin Sod/Tazobactam 50 mls @ 50 mls/hr 10/15/20 16:00 10/15/20 20:37 Sod 0.75 gm/ Dextrose IVPB Infused MoWeFr@1600 ANABEL Infusion Sodium Chloride 1,000 mls @ 100 mls/hr 10/14/20 17:25 10/17/20 03:16 Normal Saline Iv IV CONT 100 mls/hr .Q10H ANABEL Administration Piperacillin Sod/Tazobactam Sod 2.25 gm in 50 mls @ 100 mls/hr 10/16/20 14:00 10/17/20 06:40 Zosyn 2.25 Gm/D5w 50 Ml IVPB Infused Q8HR ANABEL Infusion Lactated Ringer's 1,000 mls @ 30 mls/hr 10/16/20 14:35 10/16/20 19:19 Lr - Lactated Ringers Iv IV CONT Not Given .Q24H ANABEL Sodium Chloride 500 mls @ 30 mls/hr 10/16/20 15:00 10/16/20 17:55 Normal Saline Iv IV CONT Infused .[id number] ANABEL Infusion Lactated Ringer's 1,000 mls @ 30 mls/hr 10/16/20 15:45 10/16/20 19:19 Lr - Lactated Ringers
--- NOTE | 2020-10-17 14:02 | PM.IMPN ---
Progress Note: A&P Assessment and Plan (1) Sepsis: Code(s): A41.9 - Sepsis, unspecified organism Status: Acute Assessment and Plan: Patient met criteria for sepsis with hypotension, tachycardia and leukocytosis in the setting of possible pneumonia versus UTI verses decubitus ulcer infection. Patient was started on IV antibiotics with Zosyn Blood cultures NG, urine culture brinda, wound growing staph aureus which could be colonization Patient remains afebrile, stable blood pressure, intermittent tachycardic heart rate throughout the day, normal oxygenation on room air and respiratory rate. Continue monitor vital signs and leukocytosis. (2) Acute hypotension: Code(s): I95.9 - Hypotension, unspecified Status: Acute Assessment and Plan: Most likely secondary to dehydration secondary to sepsis verses lack of appetite and eating. He was given IV fluids in the ER with improvement of his blood pressure. Blood pressure is improved with IV fluid hydration, 116/62. Continue monitoring respiratory status Continue monitoring BP (3) Decubital ulcer: Qualifiers: Pressure injury location: sacral region Pressure injury stage: unstageable Qualified Code(s): L89.150 - Pressure ulcer of sacral region, unstageable Code(s): L89.90 - Pressure ulcer of unspecified site, unspecified stage Status: Chronic Assessment and Plan: Very large stage IV decubitus ulcer ([id number]). IV antibiotics have been started on the patient Wound culture staph to surgery for debridement 10/16 , cultures taken again, probable osteo. will get ID opinion if need further antibiotics or local care only Continue monitoring (4) Near syncope: Code(s): R55 - Syncope and collapse Status: Acute Assessment and Plan: Most likely secondary to hypotension, dehydration as well as infection. Improved with IV fluids (5) Acute renal failure (ARF): Code(s): N17.9 - Acute kidney failure, unspecified Status: Acute Assessment and Plan: Last admission patient had a dialysis catheter placed and has been receiving dialysis. Currently on admission his creatinine was 2.1 .This admission had AKF most likely due to infection versus dehydration. Renal function improved to 1.7 today. Nephrology following Hold on dialysis at this time Continue monitoring renal function and Nephrology's input is greatly appreciated. (6) CAD (coronary artery disease): Code(s): I25.10 - Atherosclerotic heart disease of [place] coronary artery without angina pectoris Status: Acute Assessment and Plan: Denies any chest pain at this time. Continue aspirin at home medications. Continue monitoring. (7) Cardiomyopathy: Code(s): I42.9 - Cardiomyopathy, unspecified Status: Acute Assessment and Plan: Last admission found to have systolic EF of 20-25%. Will continue monitoring fluid status to ensure we do not fluid overload him due to his dehydration. Continue monitoring respiratory status and fluid status with IV fluid hydration due to sepsis and dehydration. (8) Paroxysmal atrial fibrillation: Code(s): I48.0 - Paroxysmal atrial fibrillation Status: Acute Assessment and Plan: Telemetry shows normal sinus rhythm with a heart rate in the 90s. No AFib noted on tele. Continue Eliquis at this time. (9) Decubitus ulcer of sacral region, stage 4: Code(s): L89.154 - Pressure ulcer of sacral region, stage 4 Status: Acute Assessment and Plan: as above Subje
--- NOTE | 2020-10-17 15:24 | PM.PNNEP ---
Progress Note: A&P Assessment and Plan (1) Acute renal failure (ARF): Code(s): N17.9 - Acute kidney failure, unspecified Status: Acute Assessment and Plan: thought to be secondary to ATN from previous infection and hemodyanmic instability was requiring renal replacement therapy/dialysis as an outpatient however, renal function has been improving associated with better urine output -- hence, his kidney function may be recovering continue to hold dialysis for now -- following trend of repeat labs and UOP (2) Acute hypotension: Code(s): I95.9 - Hypotension, unspecified Status: Acute Assessment and Plan: appears to be doing better at this time s/p IVF resuscitation concern that infection/sepsis (#3) is playing a role on top of volume depletion/dehydration his underlying cardiomyopathy may be contributing as well follow trend of hemodynamics (3) Decubital ulcer: Qualifiers: Pressure injury location: sacral region Pressure injury stage: unstageable Qualified Code(s): L89.150 - Pressure ulcer of sacral region, unstageable Code(s): L89.90 - Pressure ulcer of unspecified site, unspecified stage Status: Chronic Assessment and Plan: potential etiology of sepsis criteria (hypotension, tachycardia and leukocytosis) on antibiotic therapy blood cultures negative Surgery following -- s/p debridement yesterday with concerns for possible osteomyelitis (4) Encephalopathy: Code(s): G93.40 - Encephalopathy, unspecified Status: Acute Assessment and Plan: has underling dementia follow mentation Will continue to follow. Subjective Date/time seen: 10/17/20 15:24 Status post debridement of sacral decubitus ulcer yesterday and tolerated the procedure reasonably well; pain control appears adequate; continue to eat/drink reasonably well; no other acute issues/problems overnight or earlier this AM; renal function stable if not better without the need for dialysis since admission. Exam Narrative: Exam Narrative: General: WD/WN male in NAD Heart: normal S1 and S2; no rub Lungs: clear to auscultation Abdomen: soft, nontender, nondistended, positive bowel sounds Extremities: no cyanosis or clubbing; no edema Skin: no rash or nodules Objective Data Vital Signs Vital Signs: Vital Signs Temp Pulse Resp BP Pulse Ox 10/17/20 14:00 93 10/17/20 12:00 93 20 98 10/17/20 11:05 36.2 C L 93 20 116/63 98 10/17/20 10:00 92 10/17/20 09:07 99 10/17/20 08:00 36.2 C L 93 20 124/66 100 10/17/20 06:00 88 10/17/20 04:40 94 10/17/20 04:00 37.0 C 99 20 114/67 96 10/17/20 02:00 91 10/17/20 00:00 91 10/16/20 23:37 36.5 C 94 18 91/50 L 99 10/16/20 19:42 36.5 C 99 20 95/47 L 97 Intake/Output Intake/Output: Intake & Output 10/14/20 10/15/20 10/16/20 10/17/20 23:59 23:59 23:59 23:59 Intake Total 3330 2760 2250 1780 Output Total 1150 1000 1075 750 Balance 2180 1760 1175 1030 Meds/Results Medications: Active Medications Generic Name Dose Route Start Last Admin Trade Name Brianna PRN Reason Stop Dose Admin Acetaminophen 650 mg 10/14/20 02:53 10/15/20 21:50 Acetaminophen 325 Mg Tablet PO 650 mg Q4H PRN Administration Mild Pain (1-3) Or Fever Apixaban 5 mg 10/14/20 09:00 10/17/20 09:08 Apixaban 5 Mg Tablet PO 5 mg Q12HR ANABEL Administration Aspirin 81 mg 10/14/20 08:00 10/17/20 09:07 Aspirin 81 Mg Chewable Tablet PO 81 mg DAILY@0800 ANABEL Administration Atorvastatin Calcium 40 mg 10/14/20 09:00 10/17/20 09:08 Atorvastatin 40 Mg Tablet PO 40 mg DAILY ANABEL Administration Epoetin Andrei-epbx 10,000 units 10/15/20 09:00 10/17/20 09:18 Epoetin Andrei-Epbx 10,000 Units/Ml Vial SUB-Q 10,000 units MoWeFr@0900 [facility] Administration Fentanyl Citrate 25 mcg 10/16/20 15:44 Fentanyl Citrate Inj (*Crx) 100 Mcg/2 Ml Vial IV
--- NOTE | 2020-10-17 18:30 | PC.NURSE ---
This patient, Saad Yarbrough, was received from IMU on 10/17/20 at 1830. Patient oriented to unit policies and routines. Report Recieved from Cookie ROBLES.
--- NOTE | 2020-10-17 18:38 | PC.NURSE ---
This patient, Saad Yarbrough, was transferred to [[id number] ] on 10/17/20 at 1835 . Personal belongings sent with patient. Report given to [Ann ]. Appropriate documentation sent with patient.
[2020-10-17] MEDS: SILVERGEL (ELTA) 45 ML 1 APPLIC TOPICAL (20:22)
[2020-10-17] MEDS: rOPINIRole HCL 1 MG TABLET 2 MG PO (22:00)
[2020-10-18 04:00] VITALS: BP 104/56; PULSE 89; RESP 20; TEMP 37.4; O2SAT 92
[2020-10-18] MEDS: MORPHINE SULFATE (*CRX) 2 MG/ML INJ IV PUSH ×3 (04:56→19:14)
[2020-10-18 05:57] LABS: Albumin Level 2.3 g/dL (3.5-5.1); Anion Gap 0 mmol/L (8-16); Blood Urea Nitrogen 24 mg/dL (9-20); Calcium 7.3 mg/dL (8.4-10.2); Carbon Dioxide 27 mmol/L (22-30); Chloride 104 mmol/L (98-107); Estimated CRCL calculation 37 ml/min; Estimated Glomerular Filt Rate 42; Glucose 95 mg/dL (75-110); Phosphorus 2.5 mg/dL (2.5-4.5); Potassium 3.9 mmol/L (3.4-5.0); Sodium 131 mmol/L (137-145)
[2020-10-18 06:02] LABS: Basophils Absolute Auto 0.1 K/mm3 (0.0-0.1); Basophils Percent Auto 0.9 % (0.2-1.2); Eosinophils Absolute Auto 0.2 K/mm3 (0-0.3); Eosinophils Percent Auto 1.5 % (0-4.4); Hematocrit 24.9 % (42.0-52.0); Hemoglobin 7.4 g/dL (14.0-18.0); Immature Granulocyte Absolute 0.09 K/mm3 (0.00-0.031); Immature Granulocyte Percent A 0.8 % (0-0.5); Lymphocytes Absolute Auto 2.98 K/mm3 (0.9-3.2); Lymphocytes Percent Auto 27.6 % (18.3-44.2); Mean Corpuscular HGB Conc 29.7 g/dl (32-36); Mean Corpuscular Hemoglobin 27.1 pg (26-34); Mean Corpuscular Volume 91.2 fl (80-100); Mean Platelet Volume 9.5 fl (7.4-10.4); Monocytes Absolute Auto 0.9 K/mm3 (0.1-0.6); Monocytes Percent Auto 7.9 % (2.6-8.5); Neutrophils Absolute Auto 6.6 K/mm3 (1.3-6.7); Neutrophils Percent Auto 61.3 % (45.5-73.1); Platelet Count Result 350 k/mm3 (150-375); Red Blood Count 2.73 M/mm3 (4.6-6.20); Red Cell Distribution Width 15.9 % (11.5-14.5); White Blood Count 10.8 K/mm3 (4.5-10.0)
[2020-10-18] MEDS: APIXABAN 5 MG TABLET PO ×2 (08:01→20:12)
[2020-10-18] MEDS: HYDROcodone/acetaminophen (*CRX) 10-325 MG TABLET 1 TAB PO ×3 (08:16→22:10)
[2020-10-18] MEDS: ATORVASTATIN 40 MG TABLET PO (08:33)
[2020-10-18] MEDS: ASPIRIN 81 MG CHEWABLE TABLET PO (08:33)
[2020-10-18] MEDS: LIDOCAINE 5% PATCH 1 PATCH TRANSDERM (08:33)
[2020-10-18 08:36] VITALS: PULSE 89
[2020-10-18] MEDS: METOPROLOL SUCCINATE EXT REL 12.5 MG TABCR PO (08:36)
[2020-10-18] MEDS: lisinopriL 2.5 MG TABLET PO (08:36)
--- NOTE | 2020-10-18 11:15 | PCNFU ---
Nutrition Follow-Up Complete: Increased protein/calorie needs related to significantly increased demands as evidenced by unhealed wounds, hemodialysis, weight loss. Goal: Patient to consume 75% of meals/supplements or greater. Progressing towards goal. We will continue current goal. Pt current nutrition is Heart Healthy. Last recorded weight is 89.5 kg,up from 80 kg on admit. Bowel Motility:+BM 10/18 Labs Reviewed:Na 131,GFR 42,Cr 1.6,BUN 24 Meds Noted:Eliquis,Zosyn,Lipitor Additional Notes: Patient seen today for nutrition follow up. He states to tolerating current diet, Intake have been at least 75% of meals. Debridement on 10/16. Unstageable pressure ulcer on left heel and sacrum noted. Diet Supplements: Nepro BID providing an additional 425 kcals and 19 gms protein. Monitoring: weight, labs, meds, oral intake every 5 days.
--- NOTE | 2020-10-18 13:08 | PM.PNGS ---
Progress Note: A&P Assessment and Plan (1) Decubitus ulcer of sacral region, stage 4: Code(s): L89.154 - Pressure ulcer of sacral region, stage 4 Status: Acute Assessment and Plan: Continue local wound care - wound care nurses will re-evaluate wound tomorrow for wound VAC therapy. Extensive wound with concern for osteomyelitis, pathology pending from surgery. Reduce pressure to this wound, will have specialty bed ordered today. Encouraged good nutrition. Frequent turning and repositioning to help prevent future wounds and avoid progression of current wounds. Additional Plan Discussed plan with Dr. Mercer. Subjective Subjective Date/Time Seen: 10/18/20 13:08 Post Op day: 2 Patient reports: no new complaints Interval history: Patient seen this morning. Per the nurse, patient was incontinent of stool earlier today and soiled his sacral wound dressing, so it was changed already once today. Patient states he can sometimes feel the urge to defecate and will notify the nurses. Still having pain with turning and movement. Review of Systems Constitutional: Constitutional: Denies fever(s) Exam Skin: Other: Dressing and packing removed. Sacral decubitus ulcer down to bone with no purulent drainage today. No bleeding. Silver gel applied and packed with gauze, then applied ABD pad and tape. Objective Data Vital Signs Vital Signs: Vital Signs - 24 hr 10/17/20 14:00 10/17/20 16:00 10/17/20 19:10 Temperature 97 F L 99.2 F Pulse Rate 93 51 L 102 H Respiratory Rate 22 H 16 Blood Pressure 118/64 108/57 L Pulse Oximetry 96 100 10/17/20 20:00 10/18/20 04:00 10/18/20 08:36 Temperature 98.8 F 99.3 F Pulse Rate 108 H 89 89 Respiratory Rate 22 H 20 Blood Pressure 108/60 104/56 L Pulse Oximetry 98 92 Intake/Output Intake/Output: Intake & Output 10/15/20 10/16/20 10/17/20 10/18/20 23:59 23:59 23:59 23:59 Intake Total 2760 2250 2880 1180 Output Total 1000 1075 1400 300 Balance 1760 1175 1480 880 Meds/Results Medications: Active Medications Generic Name Dose Route Start Last Admin Trade Name Freq PRN Reason Stop Dose Admin Acetaminophen 650 mg 10/14/20 02:53 10/15/20 21:50 Acetaminophen 325 Mg Tablet PO 650 mg Q4H PRN Administration Mild Pain (1-3) Or Fever Hydrocodone Bitart/Acetaminophen 1 tab 10/18/20 07:59 10/18/20 08:16 Hydrocodone/Acetaminophen (*Crx) 10-325 Mg Tablet PO 1 tab Q6H PRN Administration Pain Rated 7-10 Apixaban 5 mg 10/14/20 09:00 10/18/20 08:01 Apixaban 5 Mg Tablet PO 5 mg Q12HR ANABEL Administration Aspirin 81 mg 10/14/20 08:00 10/18/20 08:33 Aspirin 81 Mg Chewable Tablet PO 81 mg DAILY@0800 ANABEL Administration Atorvastatin Calcium 40 mg 10/14/20 09:00 10/18/20 08:33 Atorvastatin 40 Mg Tablet PO 40 mg DAILY ANABEL Administration Epoetin Andrei-epbx 10,000 units 10/15/20 09:00 10/17/20 09:18 Epoetin Andrei-Epbx 10,000 Units/Ml Vial SUB-Q 10,000 units MoWeFr@0900 ANABEL Administration Piperacillin Sod/Tazobactam 50 mls @ 50 mls/hr 10/15/20 16:00 10/17/20 18:16 Sod 0.75 gm/ Dextrose IVPB Not Given MoWeFr@1600 [facility] Piperacillin Sod/Tazobactam Sod 2.25 gm in 50 mls @ 100 mls/hr 10/16/20 14:00 10/18/20 05:32 Zosyn 2.25 Gm/D5w 50 Ml IVPB 100 mls/hr Q8HR ANABEL Administration Lidocaine 1 patch 10/15/20 14:00 10/18/20 08:33 Lidocaine 5% Patch TRANSDERM 1 patch DAILY ANABEL Administration Lisinopril 2.5 mg 10/14/20 09:00 10/18/20 08:36 Lisinopril 2.5 Mg Tablet PO 2.5 mg SuTuThSa@0900 ANABEL Administration Metoprolol Succinate 12.5 mg 10/14/20 09:00 10/18/20 08:36 Metoprolol Succinate Ext Rel 12.5 Mg Tabcr PO 12.5 mg QAM ANABEL Administration Morphine Sulfate 2 mg 10/15/20 13:34 10/18/20 10:26 Morphine Sulfate (*Crx) 2 Mg/Ml Inj IV PUSH 2 mg Q4H PRN Administration Breakthrough Pain Ropinirole HCl 2 mg 10/14/20 21:00 10/17/20 22:00 Ropinirole
[2020-10-18 14:00] VITALS: BP 100/55; PULSE 90; RESP 16; TEMP 37.2; O2SAT 96
--- NOTE | 2020-10-18 15:07 | WPDINFPN2 ---
Progress Note: A&P Assessment and Plan (1) Decubitus ulcer of sacral region, stage 4: Code(s): L89.154 - Pressure ulcer of sacral region, stage 4 Status: Acute Assessment and Plan: 1. Sacral decubitus ulcer with acute osteomyelitis. 2. CRF on HD REC PipTazo # 5 / 28 days, through 11/11. Will need Roblero. Subjective Date/time seen: 10/18/20 15:07 Objective Data Vital Signs Vital Signs: Vital Signs - 24 hr 10/17/20 16:00 10/17/20 19:10 10/17/20 20:00 Temperature 36.1 C L 37.3 C 37.1 C Pulse Rate 51 L 102 H 108 H Respiratory Rate 22 H 16 22 H Blood Pressure 118/64 108/57 L 108/60 Pulse Oximetry 96 100 98 10/18/20 04:00 10/18/20 08:36 Temperature 37.4 C Pulse Rate 89 89 Respiratory Rate 20 Blood Pressure 104/56 L Pulse Oximetry 92 Intake/Output Intake/Output: Intake & Output 10/15/20 10/16/20 10/17/20 10/18/20 23:59 23:59 23:59 23:59 Intake Total 2760 2250 2880 1760 Output Total 1000 1075 1400 300 Balance 1760 1175 1480 1460 Meds/Results Medications: Active Medications Generic Name Dose Route Start Last Admin Trade Name Freq PRN Reason Stop Dose Admin Acetaminophen 650 mg 10/14/20 02:53 10/15/20 21:50 Acetaminophen 325 Mg Tablet PO 650 mg Q4H PRN Administration Mild Pain (1-3) Or Fever Hydrocodone Bitart/Acetaminophen 1 tab 10/18/20 07:59 10/18/20 14:15 Hydrocodone/Acetaminophen (*Crx) 10-325 Mg Tablet PO 1 tab Q6H PRN Administration Pain Rated 7-10 Apixaban 5 mg 10/14/20 09:00 10/18/20 08:01 Apixaban 5 Mg Tablet PO 5 mg Q12HR ANABEL Administration Aspirin 81 mg 10/14/20 08:00 10/18/20 08:33 Aspirin 81 Mg Chewable Tablet PO 81 mg DAILY@0800 ANABEL Administration Atorvastatin Calcium 40 mg 10/14/20 09:00 10/18/20 08:33 Atorvastatin 40 Mg Tablet PO 40 mg DAILY ANABEL Administration Epoetin Andrei-epbx 10,000 units 10/15/20 09:00 10/17/20 09:18 Epoetin Andrei-Epbx 10,000 Units/Ml Vial SUB-Q 10,000 units MoWeFr@0900 ANABEL Administration Piperacillin Sod/Tazobactam 50 mls @ 50 mls/hr 10/15/20 16:00 10/17/20 18:16 Sod 0.75 gm/ Dextrose IVPB Not Given MoWeFr@1600 [facility] Piperacillin Sod/Tazobactam Sod 2.25 gm in 50 mls @ 100 mls/hr 10/16/20 14:00 10/18/20 14:05 Zosyn 2.25 Gm/D5w 50 Ml IVPB Infused Q8HR [facility] Infusion Lidocaine 1 patch 10/15/20 14:00 10/18/20 08:33 Lidocaine 5% Patch TRANSDERM 1 patch DAILY ANABEL Administration Lisinopril 2.5 mg 10/14/20 09:00 10/18/20 08:36 Lisinopril 2.5 Mg Tablet PO 2.5 mg SuTuThSa@0900 ANABEL Administration Metoprolol Succinate 12.5 mg 10/14/20 09:00 10/18/20 08:36 Metoprolol Succinate Ext Rel 12.5 Mg Tabcr PO 12.5 mg QAM ANABEL Administration Morphine Sulfate 2 mg 10/15/20 13:34 10/18/20 10:26 Morphine Sulfate (*Crx) 2 Mg/Ml Inj IV PUSH 2 mg Q4H PRN Administration Breakthrough Pain Ropinirole HCl 2 mg 10/14/20 21:00 10/17/20 22:00 Ropinirole Hcl 1 Mg Tablet PO 2 mg HS ANABEL Administration Silver Nitrate 1 applic 10/17/20 19:00 10/17/20 20:22 Silvergel (Elta) 45 Ml TOPICAL 1 applic Q72HR ANABEL Administration Radiology Results: ITS Impressions Chest X-Ray 10/13/20 14:11 Impression: 1: Right perihilar infiltrates, suspicious for pneumonia. Head CT 10/13/20 14:51 IMPRESSION: 1. Stable mild nonspecific cerebral white matter disease, which likely represents chronic small vessel ischemic disease. Labs Labs: Laboratory Results - last 24 hr 10/18/20 10/18/20 05:28 05:28 WBC 10.8 H RBC 2.73 L Hgb 7.4 L Hct 24.9 L MCV 91.2 MCH 27.1 MCHC 29.7 L RDW 15.9 H Plt Count 350 MPV 9.5 Immature Gran % (Auto) 0.8 H Neut % (Auto) 61.3 Lymph % (Auto) 27.6 Gordon % (Auto) 7.9 Eos % (Auto) 1.5 Baso % (Auto) 0.9 Lymph # (Auto) 2.98 Gordon # (Auto) 0.9 H Eos # (Auto) 0.2 Baso # (Auto) 0.1 Abs Immat Gran (auto) 0.09 H Absolute Neuts (auto)
--- NOTE | 2020-10-18 16:30 | PM.PNNEP ---
Progress Note: A&P Assessment and Plan (1) Acute renal failure (ARF): Code(s): N17.9 - Acute kidney failure, unspecified Status: Acute Assessment and Plan: thought to be secondary to ATN from previous infection and hemodyanmic instability was requiring renal replacement therapy/dialysis as an outpatient however, renal function has been improving associated with better urine output -- hence, his kidney function seems to be recovering - he has been off dialysis now for almost a week continue to hold dialysis following trend of repeat labs and UOP consider removal of tunneled HD catheter prior to discharge (2) Acute hypotension: Code(s): I95.9 - Hypotension, unspecified Status: Acute Assessment and Plan: appears to be doing better at this time (holding steady in the 100s systolic range) s/p IVF resuscitation concern that infection/sepsis (#3) is playing a role on top of volume depletion/dehydration his underlying cardiomyopathy may be contributing as well follow trend of hemodynamics (3) Decubital ulcer: Qualifiers: Pressure injury location: sacral region Pressure injury stage: unstageable Qualified Code(s): L89.150 - Pressure ulcer of sacral region, unstageable Code(s): L89.90 - Pressure ulcer of unspecified site, unspecified stage Status: Chronic Assessment and Plan: potential etiology of sepsis criteria (hypotension, tachycardia and leukocytosis) on antibiotic therapy blood cultures negative Surgery following -- s/p debridement yesterday with concerns for possible osteomyelitis Infectious Disease recommendations noted for antibiotics (4) Encephalopathy: Code(s): G93.40 - Encephalopathy, unspecified Status: Acute Assessment and Plan: has underling dementia follow mentation Will continue to follow. Subjective Date/time seen: 10/18/20 16:30 Appears to be doing reasonably well at the time of my visit; no apparent distress noted; no events overnight or earlier this AM; remains hemodynamically stable. Exam Narrative: Exam Narrative: General: WD/WN male in NAD Heart: normal S1 and S2; no rub Lungs: clear to auscultation Abdomen: soft, nontender, nondistended, positive bowel sounds Extremities: no cyanosis or clubbing; no edema Skin: no rash or nodules Objective Data Vital Signs Vital Signs: Vital Signs Temp Pulse Resp BP Pulse Ox 10/18/20 14:00 37.2 C 90 16 100/55 L 96 10/18/20 08:36 89 10/18/20 04:00 37.4 C 89 20 104/56 L 92 10/17/20 20:00 37.1 C 108 H 22 H 108/60 98 10/17/20 19:10 37.3 C 102 H 16 108/57 L 100 Intake/Output Intake/Output: Intake & Output 10/15/20 10/16/20 10/17/20 10/18/20 23:59 23:59 23:59 23:59 Intake Total 2760 2250 2880 2000 Output Total 1000 1075 1400 300 Balance 1760 1175 1480 1700 Meds/Results Medications: Active Medications Generic Name Dose Route Start Last Admin Trade Name Freq PRN Reason Stop Dose Admin Acetaminophen 650 mg 10/14/20 02:53 10/15/20 21:50 Acetaminophen 325 Mg Tablet PO 650 mg Q4H PRN Administration Mild Pain (1-3) Or Fever Hydrocodone Bitart/Acetaminophen 1 tab 10/18/20 07:59 10/18/20 14:15 Hydrocodone/Acetaminophen (*Crx) 10-325 Mg Tablet PO 1 tab Q6H PRN Administration Pain Rated 7-10 Apixaban 5 mg 10/14/20 09:00 10/18/20 08:01 Apixaban 5 Mg Tablet PO 5 mg Q12HR ANABEL Administration Aspirin 81 mg 10/14/20 08:00 10/18/20 08:33 Aspirin 81 Mg Chewable Tablet PO 81 mg DAILY@0800 ANABEL Administration Atorvastatin Calcium 40 mg 10/14/20 09:00 10/18/20 08:33 Atorvastatin 40 Mg Tablet PO 40 mg DAILY ANABEL Administration Epoetin Andrei-epbx 10,000 units 10/15/20 09:00 10/17/20 09:18 Epoetin Andrei-Epbx 10,000 Units/Ml Vial SUB-Q 10,000 units MoWeFr@0900 ANABEL Administration Piperacillin Sod/Tazobactam 50 mls @ 50 mls/hr 10/15/20 1
--- NOTE | 2020-10-18 16:30 | P.PNNP_ITS ---
Progress Note: A&P Assessment and Plan (1) Acute renal failure (ARF): Code(s): N17.9 - Acute kidney failure, unspecified Status: Acute Assessment and Plan: * thought to be secondary to ATN from previous infection and hemodyanmic instability * was requiring renal replacement therapy/dialysis as an outpatient * however, renal function has been improving associated with better urine output -- hence, his kidney function seems to be recovering - he has been off dialysis now for almost a week * continue to hold dialysis * following trend of repeat labs and UOP * consider removal of tunneled HD catheter prior to discharge (2) Acute hypotension: Code(s): I95.9 - Hypotension, unspecified Status: Acute Assessment and Plan: * appears to be doing better at this time (holding steady in the 100s systolic range) * s/p IVF resuscitation * concern that infection/sepsis (#3) is playing a role on top of volume depletion/dehydration * his underlying cardiomyopathy may be contributing as well * follow trend of hemodynamics (3) Decubital ulcer: Qualifiers: Pressure injury location: sacral region Pressure injury stage: unstageable Qualified Code(s): L89.150 - Pressure ulcer of sacral region, unstageable Code(s): L89.90 - Pressure ulcer of unspecified site, unspecified stage Status: Chronic Assessment and Plan: * potential etiology of sepsis criteria (hypotension, tachycardia and leukocytosis) * on antibiotic therapy * blood cultures negative * Surgery following -- s/p debridement yesterday with concerns for possible osteomyelitis * Infectious Disease recommendations noted for antibiotics (4) Encephalopathy: Code(s): G93.40 - Encephalopathy, unspecified Status: Acute Assessment and Plan: * has underling dementia * follow mentation Will continue to follow. Subjective Date/time seen: 10/18/20 16:30 Appears to be doing reasonably well at the time of my visit; no apparent distress noted; no events overnight or earlier this AM; remains hemodynamically stable. Exam Narrative: Exam Narrative: General: WD/WN male in NAD Heart: normal S1 and S2; no rub Lungs: clear to auscultation Abdomen: soft, nontender, nondistended, positive bowel sounds Extremities: no cyanosis or clubbing; no edema Skin: no rash or nodules Objective Data Vital Signs Vital Signs: Vital Signs Temp Pulse Resp BP Pulse Ox 10/18/20 14:00 37.2 C 90 16 100/55 L 96 10/18/20 08:36 89 10/18/20 04:00 37.4 C 89 20 104/56 L 92 10/17/20 20:00 37.1 C 108 H 22 H 108/60 98 10/17/20 19:10 37.3 C 102 H 16 108/57 L 100 Intake/Output Intake/Output: Intake & Output 10/15/20 10/16/20 10/17/20 10/18/20 23:59 23:59 23:59 23:59 Intake Total 2760 2250 2880 2000 Output Total 1000 1075 1400 300 Balance 1760 1175 1480 1700 Meds/Results Medications: Active Medications Generic Name Dose Route Start Last Admin Trade Name Freq PRN Reason Stop Dose Admin Acetaminophen 650 mg 10/14/20 02:53 10/15/20 21:50 Acetaminophen 325 Mg Tablet PO 650 mg Q4H PRN Administration Mild Pain (1-3) Or Fever Hydrocodone Bitart/Acetaminophen 1 tab 10/18/20 07:59 10/18/20 14:15 Hydrocodone
--- NOTE | 2020-10-18 18:39 | PM.IMPN ---
Progress Note: A&P Assessment and Plan (1) Sepsis: Code(s): A41.9 - Sepsis, unspecified organism Status: Acute Assessment and Plan: Patient met criteria for sepsis with hypotension, tachycardia and leukocytosis in the setting of possible pneumonia versus UTI verses decubitus ulcer infection. Patient was started on IV antibiotics with Zosyn Blood cultures NG, urine culture brinda, wound growing staph aureus which could be colonization Patient remains afebrile, stable blood pressure, intermittent tachycardic heart rate throughout the day, normal oxygenation on room air and respiratory rate. Continue monitor vital signs and leukocytosis. (2) Acute hypotension: Code(s): I95.9 - Hypotension, unspecified Status: Acute Assessment and Plan: Most likely secondary to dehydration secondary to sepsis verses lack of appetite and eating. He was given IV fluids in the ER with improvement of his blood pressure. Blood pressure is improved with IV fluid hydration, 116/62. Continue monitoring respiratory status Continue monitoring BP (3) Decubital ulcer: Qualifiers: Pressure injury location: sacral region Pressure injury stage: unstageable Qualified Code(s): L89.150 - Pressure ulcer of sacral region, unstageable Code(s): L89.90 - Pressure ulcer of unspecified site, unspecified stage Status: Chronic Assessment and Plan: Very large stage IV decubitus ulcer ([id number]). IV antibiotics have been started on the patient Wound culture staph to surgery for debridement 10/16 , cultures taken again, probable osteo. ID feels osteo and recommends 28 days of Zosyn today day 5 (4) Near syncope: Code(s): R55 - Syncope and collapse Status: Acute Assessment and Plan: Most likely secondary to hypotension, dehydration as well as infection. Improved with IV fluids (5) Acute renal failure (ARF): Code(s): N17.9 - Acute kidney failure, unspecified Status: Acute Assessment and Plan: Last admission patient had a dialysis catheter placed and has been receiving dialysis. Currently on admission his creatinine was 2.1 .This admission had AKF most likely due to infection versus dehydration. Renal function improved to 1.6 today. Nephrology following Hold on dialysis at this time Continue monitoring renal function and Nephrology's input is greatly appreciated. (6) CAD (coronary artery disease): Code(s): I25.10 - Atherosclerotic heart disease of tribal coronary artery without angina pectoris Status: Acute Assessment and Plan: Denies any chest pain at this time. Continue aspirin at home medications. Continue monitoring. (7) Cardiomyopathy: Code(s): I42.9 - Cardiomyopathy, unspecified Status: Acute Assessment and Plan: Last admission found to have systolic EF of 20-25%. Will continue monitoring fluid status to ensure we do not fluid overload him due to his dehydration. Continue monitoring respiratory status and fluid status with IV fluid hydration due to sepsis and dehydration. (8) Paroxysmal atrial fibrillation: Code(s): I48.0 - Paroxysmal atrial fibrillation Status: Acute Assessment and Plan: Telemetry shows normal sinus rhythm with a heart rate in the 90s. No AFib noted on tele. Continue Eliquis at this time. (9) Decubitus ulcer of sacral region, stage 4: Code(s): L89.154 - Pressure ulcer of sacral region, stage 4 Status: Acute Assessment and Plan: Osteo. Local wound care. Twenty-eight days
--- NOTE | 2020-10-18 19:34 | CONS_ITS ---
DATE OF CONSULTATION: 10/18/2020 REASON FOR CONSULTATION: Sacral decubitus. HISTORY OF PRESENT ILLNESS: A 75-year-old male known to us from the past who has Parkinson's and chronic memory loss. He is a resident of a care home and has been immobile for a number of weeks. He was in the hospital last month and had Proteus bacteremia at that time, source either chronic urinary catheter or his decubitus ulcer. At his care home, he was undergoing local wound care, but later he was sent here on October 13 because of declining appearance of his ulcer. He was taken to the operating room on October 16. This is postop day #2. He underwent excisional debridement of the ulcer with findings including necrotic tissue extending to the sacrum and coccyx. Pathology was collected. The wound was left open and he is now postop. He does note pain over the last several weeks, so could not define exact timing and the pain is improved postoperatively. He denies fever, chills, or sweats. He received a single dose of ceftriaxone on arrival, now he is on piperacillin day #5. Consultation requested. ALLERGIES: NONE KNOWN. MEDICATIONS: His care home record indicates ampicillin being prescribed approximately 10 days before admission for unknown reasons. He is on the above piperacillin currently, appropriately dosed for his renal failure. He is on no systemic immunosuppressants. HABITS: Rare alcohol. Quit smoking 14 years ago. Past marijuana use. PAST MEDICAL HISTORY: In addition to the above, coronary stents, colonoscopy, and tonsillectomy, PAF, non-ST DE, melanoma, macular degeneration, hypertension, electrolyte abnormalities, hyperlipidemia, past polio, past DE, GI hemorrhage, past DVT, diverticulitis, chronic renal failure, and cardiomyopathy. REVIEW OF SYSTEMS: Some urine output, presently off dialysis. A 14-point review otherwise negative though his short-term memory is compromised. FAMILY HISTORY: Not pertinent to his present illness. SOCIAL HISTORY: Currently care home resident. 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 He is . No family at the bedside. PHYSICAL EXAMINATION: GENERAL: This is an elderly male who appears actual age. No respiratory distress. VITAL SIGNS: Afebrile, 104/56, 89, 20, 92% room air. SKIN: Warm and dry. No generalized rash. EENT: Conjunctivae are clear. No icterus. The oral mucosa is well hydrated. No paranasal sinus erythema, edema, or tenderness. NECK: No meningismus, mass, or tenderness. He has no adenopathy, cervical chain. LUNGS: Clear to auscultation and percussion. CHEST: Equal expansion. Normal AP diameter. He has a right upper chest dialysis catheter, which appears to enter the right IJ. ABDOMEN: Nondistended, soft. No organomegaly. No masses. CARDIAC: Regular rate and rhythm. No murmur, gallop, or rub. EXTREMITIES: Without clubbing, cyanosis, or edema. LABORATORY DATA: From arrival, a superficial swab has grown Staph aureus, light growth, susceptibility not yet performed. Gram stain, many white cells and few gram-negative rods. Blood cultures, no growth after 4 days incubation. Urine with Mala albicans. White count 10.8, was 13.8 on admission, hemoglobin 7.4, which is down a vtauk-sor-x-half. His platelets are 350. He has mild hyponatremia. BUN 24, creatinine 1.6. Estimated GFR up to 42. CRP is 22 and albumin 2.3. His urinalysis, multiple abnormalities. RADIOLOGY DATA: Chest x-ray on admission, right perihilar infiltrates. ASSESSMENT: 1. Decubitus ulcer, necrotic, with probable involvement of the sacrum with acute osteomyelitis. Pathology is still pending as this results of his superficial wound culture. He does have mild leukocytosis, likely due to his decubitus ulcer. 2. Chronic renal fail
[2020-10-18 20:00] VITALS: BP 117/56; PULSE 111; RESP 20; TEMP 37.3; O2SAT 100
[2020-10-18] MEDS: rOPINIRole HCL 1 MG TABLET 2 MG PO (20:12)
[2020-10-19] MEDS: MORPHINE SULFATE (*CRX) 2 MG/ML INJ IV PUSH ×2 (01:59→18:00)
[2020-10-19 04:00] VITALS: BP 106/53; PULSE 98; RESP 22; TEMP 36.7; O2SAT 92
[2020-10-19 05:42] LABS: Basophils Absolute Auto 0.1 K/mm3 (0.0-0.1); Basophils Percent Auto 0.9 % (0.2-1.2); Eosinophils Absolute Auto 0.2 K/mm3 (0-0.3); Eosinophils Percent Auto 1.8 % (0-4.4); Hemoglobin 7.5 g/dL (14.0-18.0); Immature Granulocyte Absolute 0.09 K/mm3 (0.00-0.031); Immature Granulocyte Percent A 0.9 % (0-0.5); Lymphocytes Absolute Auto 2.83 K/mm3 (0.9-3.2); Lymphocytes Percent Auto 29.3 % (18.3-44.2); Mean Corpuscular Hemoglobin 27.4 pg (26-34); Mean Corpuscular Volume 91.2 fl (80-100); Mean Platelet Volume 9.5 fl (7.4-10.4); Monocytes Absolute Auto 0.8 K/mm3 (0.1-0.6); Monocytes Percent Auto 7.9 % (2.6-8.5); Neutrophils Absolute Auto 5.7 K/mm3 (1.3-6.7); Neutrophils Percent Auto 59.2 % (45.5-73.1); Platelet Count Result 339 k/mm3 (150-375); Red Blood Count 2.74 M/mm3 (4.6-6.20); Red Cell Distribution Width 15.9 % (11.5-14.5); White Blood Count 9.7 K/mm3 (4.5-10.0)
[2020-10-19 05:56] LABS: Albumin Level 2.2 g/dL (3.5-5.1); Anion Gap 1 mmol/L (8-16); Blood Urea Nitrogen 22 mg/dL (9-20); Carbon Dioxide 25 mmol/L (22-30); Chloride 103 mmol/L (98-107); Estimated CRCL calculation 40 ml/min; Estimated Glomerular Filt Rate 45; Glucose 99 mg/dL (75-110); Phosphorus 2.2 mg/dL (2.5-4.5); Sodium 129 mmol/L (137-145)
[2020-10-19] MEDS: HYDROcodone/acetaminophen (*CRX) 10-325 MG TABLET 1 TAB PO ×3 (08:25→20:51)
[2020-10-19] MEDS: ASPIRIN 81 MG CHEWABLE TABLET PO (08:27)
[2020-10-19] MEDS: ATORVASTATIN 40 MG TABLET PO (08:27)
[2020-10-19] MEDS: APIXABAN 5 MG TABLET PO ×2 (08:27→20:10)
[2020-10-19] MEDS: EPOETIN ALFA-EPBX 10,000 UNITS/ML VIAL 10000 UNITS SUB-Q (08:27)
[2020-10-19] MEDS: LIDOCAINE 5% PATCH 1 PATCH TRANSDERM (08:28)
[2020-10-19] MEDS: METOPROLOL SUCCINATE EXT REL 12.5 MG TABCR PO (08:28)
--- NOTE | 2020-10-19 12:38 | P.PNNP_ITS ---
Progress Note: A&P Assessment and Plan (1) Acute renal failure (ARF): Code(s): N17.9 - Acute kidney failure, unspecified Status: Acute Assessment and Plan: * thought to be secondary to ATN from previous infection and hemodyanmic instability * was requiring renal replacement therapy/dialysis as an outpatient prior to admission * however, renal function has been improving associated with better urine output -- hence, his kidney function seems to be recovering - he has been off dialysis now for almost a week now * continue to hold dialysis * following trend of repeat labs and UOP * consider removal of tunneled HD catheter prior to discharge (2) Acute hypotension: Code(s): I95.9 - Hypotension, unspecified Status: Acute Assessment and Plan: * appears to be doing better at this time (holding steady in the 100s systolic range) * s/p IVF resuscitation * concern that infection/sepsis (#3) is playing a role on top of volume depletion/dehydration * his underlying cardiomyopathy may be contributing as well * follow trend of hemodynamics (3) Decubital ulcer: Qualifiers: Pressure injury location: sacral region Pressure injury stage: unstageable Qualified Code(s): L89.150 - Pressure ulcer of sacral region, unstageable Code(s): L89.90 - Pressure ulcer of unspecified site, unspecified stage Status: Chronic Assessment and Plan: * potential etiology of sepsis criteria (hypotension, tachycardia and leukocytosis) * on antibiotic therapy * blood cultures negative * Surgery following -- s/p debridement with concerns for possible osteomyelitis * Infectious Disease recommendations noted for antibiotics * not opposed to PICC line versus guidewire exchange of HD catheter for Roblero (4) Encephalopathy: Code(s): G93.40 - Encephalopathy, unspecified Status: Acute Assessment and Plan: * has underling dementia * follow mentation Will continue to follow. Subjective Date/time seen: 10/19/20 12:38 Seems to be doing fairly well at the time of my visit; major complaint is that of pain in his back (secondary to sacral decubitus ulcer) which is worse with dressing changes; appears to be eating and drinking reasonably well; no apparent events overnight or earlier this AM. Exam Narrative: Exam Narrative: General: WD/WN male in NAD Heart: normal S1 and S2; no rub Lungs: clear to auscultation Abdomen: soft, nontender, nondistended, positive bowel sounds Extremities: no cyanosis or clubbing; trace edema Skin: warm and dry Objective Data Vital Signs Vital Signs: Vital Signs Temp Pulse Resp BP Pulse Ox 10/19/20 04:00 36.7 C 98 22 H 106/53 L 92 10/18/20 20:00 37.3 C 111 H 20 117/56 L 100 Intake/Output Intake/Output: Intake & Output 10/16/20 10/17/20 10/18/20 10/19/20 23:59 23:59 23:59 23:59 Intake Total 2250 2880 2900 1800 Output Total 1075 1400 1375 475 Balance 1175 1480 1525 1325 Meds/Results Medications: Active Medications Generic Name Dose Route Start Last Admin Trade Name Freq PRN Reason Stop Dose Admin Acetaminophen 650 mg 10/14/20 02:53 10/15/20 21:50 Acetaminophen 325 Mg Tablet PO 650 mg Q4H PRN Administration Mild Pain (1-3) Or Fever Hydrocodone Bitart/Acetaminophen 1
--- NOTE | 2020-10-19 12:38 | PM.PNNEP ---
Progress Note: A&P Assessment and Plan (1) Acute renal failure (ARF): Code(s): N17.9 - Acute kidney failure, unspecified Status: Acute Assessment and Plan: thought to be secondary to ATN from previous infection and hemodyanmic instability was requiring renal replacement therapy/dialysis as an outpatient prior to admission however, renal function has been improving associated with better urine output -- hence, his kidney function seems to be recovering - he has been off dialysis now for almost a week now continue to hold dialysis following trend of repeat labs and UOP consider removal of tunneled HD catheter prior to discharge (2) Acute hypotension: Code(s): I95.9 - Hypotension, unspecified Status: Acute Assessment and Plan: appears to be doing better at this time (holding steady in the 100s systolic range) s/p IVF resuscitation concern that infection/sepsis (#3) is playing a role on top of volume depletion/dehydration his underlying cardiomyopathy may be contributing as well follow trend of hemodynamics (3) Decubital ulcer: Qualifiers: Pressure injury location: sacral region Pressure injury stage: unstageable Qualified Code(s): L89.150 - Pressure ulcer of sacral region, unstageable Code(s): L89.90 - Pressure ulcer of unspecified site, unspecified stage Status: Chronic Assessment and Plan: potential etiology of sepsis criteria (hypotension, tachycardia and leukocytosis) on antibiotic therapy blood cultures negative Surgery following -- s/p debridement with concerns for possible osteomyelitis Infectious Disease recommendations noted for antibiotics not opposed to PICC line versus guidewire exchange of HD catheter for Roblero (4) Encephalopathy: Code(s): G93.40 - Encephalopathy, unspecified Status: Acute Assessment and Plan: has underling dementia follow mentation Will continue to follow. Subjective Date/time seen: 10/19/20 12:38 Seems to be doing fairly well at the time of my visit; major complaint is that of pain in his back (secondary to sacral decubitus ulcer) which is worse with dressing changes; appears to be eating and drinking reasonably well; no apparent events overnight or earlier this AM. Exam Narrative: Exam Narrative: General: WD/WN male in NAD Heart: normal S1 and S2; no rub Lungs: clear to auscultation Abdomen: soft, nontender, nondistended, positive bowel sounds Extremities: no cyanosis or clubbing; trace edema Skin: warm and dry Objective Data Vital Signs Vital Signs: Vital Signs Temp Pulse Resp BP Pulse Ox 10/19/20 04:00 36.7 C 98 22 H 106/53 L 92 10/18/20 20:00 37.3 C 111 H 20 117/56 L 100 Intake/Output Intake/Output: Intake & Output 10/16/20 10/17/20 10/18/20 10/19/20 23:59 23:59 23:59 23:59 Intake Total 2250 2880 2900 1800 Output Total 1075 1400 1375 475 Balance 1175 1480 1525 1325 Meds/Results Medications: Active Medications Generic Name Dose Route Start Last Admin Trade Name Freq PRN Reason Stop Dose Admin Acetaminophen 650 mg 10/14/20 02:53 10/15/20 21:50 Acetaminophen 325 Mg Tablet PO 650 mg Q4H PRN Administration Mild Pain (1-3) Or Fever Hydrocodone Bitart/Acetaminophen 1 tab 10/18/20 07:59 10/19/20 14:30 Hydrocodone/Acetaminophen (*Crx) 10-325 Mg Tablet PO 1 tab Q6H PRN Administration Pain Rated 7-10 Apixaban 5 mg 10/14/20 09:00 10/19/20 08:27 Apixaban 5 Mg Tablet PO 5 mg Q12HR ANABEL Administration Aspirin 81 mg 10/14/20 08:00 10/19/20 08:27 Aspirin 81 Mg Chewable Tablet PO 81 mg DAILY@0800 ANABEL Administration Atorvastatin Calcium 40 mg 10/14/20 09:00 10/19/20 08:27 Atorvastatin 40 Mg Tablet PO 40 mg DAILY ANABEL Administration Epoetin Andrei-epbx 10,000 units 10/15/20 09:00 10/19/20 08:27 Epoetin Andrei-Epbx 10,000 Units/Ml Vial SUB-Q 10,000 units MoWeFr
--- NOTE | 2020-10-19 13:23 | PM.PNGS ---
Progress Note: A&P Assessment and Plan (1) Decubitus ulcer of sacral region, stage 4: Code(s): L89.154 - Pressure ulcer of sacral region, stage 4 Status: Acute Assessment and Plan: Discussed with wound care nurses today. Might try to place wound vac today to help control drainage and limit how many dressing changes are needed. ID recommending Roblero catheter for IV antibiotics. If no longer using Tunneled dialysis cath, could use this for access. Since Tunneled dialysis cath is significantly larger bore size than Roblero, would probably just place Roblero on left side if needed. Other option is PICC line placement. Even though patient has CKD, this would be reasonable to place as patient probably would not need multiple fistulas placed in his lifetime. Can place Roblero on Thursday if needed, patient will just have to be NPO after midnight Thursday night if this is to be planned. Subjective Subjective Date/Time Seen: 10/19/20 13:23 Patient tolerating dressing changes. No complaints today. Exam Skin: Other: Dressing and packing removed. Sacral decubitus ulcer down to bone with no purulent drainage today. No bleeding. Silver gel applied and packed with gauze, then applied ABD pad and tape. Objective Data Vital Signs Vital Signs: Vital Signs - 24 hr 10/18/20 14:00 10/18/20 20:00 10/19/20 04:00 Temperature 37.2 C 37.3 C 36.7 C Pulse Rate 90 111 H 98 Respiratory Rate 16 20 22 H Blood Pressure 100/55 L 117/56 L 106/53 L Pulse Oximetry 96 100 92 Intake/Output Intake/Output: Intake & Output 10/16/20 10/17/20 10/18/20 10/19/20 23:59 23:59 23:59 23:59 Intake Total 2250 2880 2900 1700 Output Total 1075 1400 1375 475 Balance 1175 1480 1525 1225 Meds/Results Medications: Active Medications Generic Name Dose Route Start Last Admin Trade Name Freq PRN Reason Stop Dose Admin Acetaminophen 650 mg 10/14/20 02:53 10/15/20 21:50 Acetaminophen 325 Mg Tablet PO 650 mg Q4H PRN Administration Mild Pain (1-3) Or Fever Hydrocodone Bitart/Acetaminophen 1 tab 10/18/20 07:59 10/19/20 08:25 Hydrocodone/Acetaminophen (*Crx) 10-325 Mg Tablet PO 1 tab Q6H PRN Administration Pain Rated 7-10 Apixaban 5 mg 10/14/20 09:00 10/19/20 08:27 Apixaban 5 Mg Tablet PO 5 mg Q12HR ANABEL Administration Aspirin 81 mg 10/14/20 08:00 10/19/20 08:27 Aspirin 81 Mg Chewable Tablet PO 81 mg DAILY@0800 ANABEL Administration Atorvastatin Calcium 40 mg 10/14/20 09:00 10/19/20 08:27 Atorvastatin 40 Mg Tablet PO 40 mg DAILY ANABEL Administration Epoetin Andrei-epbx 10,000 units 10/15/20 09:00 10/19/20 08:27 Epoetin Andrei-Epbx 10,000 Units/Ml Vial SUB-Q 10,000 units MoWeFr@0900 ANABEL Administration Piperacillin Sod/Tazobactam Sod 2.25 gm in 50 mls @ 100 mls/hr 10/18/20 20:00 10/19/20 08:26 Zosyn 2.25 Gm/D5w 50 Ml IVPB 100 mls/hr Q6H ANABEL Administration Lidocaine 1 patch 10/15/20 14:00 10/19/20 08:28 Lidocaine 5% Patch TRANSDERM 1 patch DAILY ANABEL Administration Lisinopril 2.5 mg 10/14/20 09:00 10/18/20 08:36 Lisinopril 2.5 Mg Tablet PO 2.5 mg SuTuThSa@0900 ANABEL Administration Metoprolol Succinate 12.5 mg 10/14/20 09:00 10/19/20 08:28 Metoprolol Succinate Ext Rel 12.5 Mg Tabcr PO 12.5 mg QAM ANABEL Administration Morphine Sulfate 2 mg 10/15/20 13:34 10/19/20 01:59 Morphine Sulfate (*Crx) 2 Mg/Ml Inj IV PUSH 2 mg Q4H PRN Administration Breakthrough Pain Ropinirole HCl 2 mg 10/14/20 21:00 10/18/20 20:12 Ropinirole Hcl 1 Mg Tablet PO 2 mg HS ANABEL Administration Silver Nitrate 1 applic 10/17/20 19:00 10/17/20 20:22 Silvergel (Elta) 45 Ml TOPICAL 1 applic Q72HR ANABEL Administration Radiology Results: ITS Impressions Chest X-Ray 10/13/20 14:11 Impression: 1: Right perihilar infiltrates, suspicious for pneumonia. Head CT 10/13/20 14:51 IMPRESSION: 1. Stable mild nonspecific cerebral white
[2020-10-19 13:56] VITALS: BP 98/59; PULSE 101; RESP 18; TEMP 36.8; O2SAT 100
--- NOTE | 2020-10-19 14:57 | WPDINFPN2 ---
Progress Note: A&P Assessment and Plan (1) Decubitus ulcer of sacral region, stage 4: Code(s): L89.154 - Pressure ulcer of sacral region, stage 4 Status: Acute Assessment and Plan: 1. Sacral decubitus ulcer with acute osteomyelitis. Culture with S aureus, susceptibility still pending 2. CRF, no ongoing HD however. Permacath or equivalent in R IJ REC PipTazo # days, through 11/11. Will probably need Roblero, due to potential need for fistula in future, UNLESS Dr Ly approves of a PICC Subjective Date/time seen: 10/19/20 14:57 Interval history: more pain over decubitus, on analgesics Exam Narrative: Exam Narrative: afebrile Const: General: no acute distress Resp: Effort & Inspection: normal respiratory effort Auscultation: clear to auscultation bilaterally Cardio: Rate: regular rate Rhythm: regular rhythm Heart sounds: no murmurs GI: Inspection: non-distended GI Palp: Yes Soft to palpation and No Tenderness to palpation present (GI) Skin: General skin exam: no rashes or lesions noted Other: wound vac in place Objective Data Vital Signs Vital Signs: Vital Signs - 24 hr 10/18/20 20:00 10/19/20 04:00 10/19/20 13:56 Temperature 37.3 C 36.7 C 36.8 C Pulse Rate 111 H 98 101 H Respiratory Rate 20 22 H 18 Blood Pressure 117/56 L 106/53 L 98/59 L Pulse Oximetry 100 92 100 Intake/Output Intake/Output: Intake & Output 10/16/20 10/17/20 10/18/20 10/19/20 23:59 23:59 23:59 23:59 Intake Total 2250 2880 2900 1800 Output Total 1075 1400 1375 475 Balance 1175 1480 1525 1325 Meds/Results Medications: Active Medications Generic Name Dose Route Start Last Admin Trade Name Freq PRN Reason Stop Dose Admin Acetaminophen 650 mg 10/14/20 02:53 10/15/20 21:50 Acetaminophen 325 Mg Tablet PO 650 mg Q4H PRN Administration Mild Pain (1-3) Or Fever Hydrocodone Bitart/Acetaminophen 1 tab 10/18/20 07:59 10/19/20 14:30 Hydrocodone/Acetaminophen (*Crx) 10-325 Mg Tablet PO 1 tab Q6H PRN Administration Pain Rated 7-10 Apixaban 5 mg 10/14/20 09:00 10/19/20 08:27 Apixaban 5 Mg Tablet PO 5 mg Q12HR ANABEL Administration Aspirin 81 mg 10/14/20 08:00 10/19/20 08:27 Aspirin 81 Mg Chewable Tablet PO 81 mg DAILY@0800 ANABEL Administration Atorvastatin Calcium 40 mg 10/14/20 09:00 10/19/20 08:27 Atorvastatin 40 Mg Tablet PO 40 mg DAILY ANABEL Administration Epoetin Andrei-epbx 10,000 units 10/15/20 09:00 10/19/20 08:27 Epoetin Andrei-Epbx 10,000 Units/Ml Vial SUB-Q 10,000 units MoWeFr@0900 ANABEL Administration Piperacillin Sod/Tazobactam Sod 2.25 gm in 50 mls @ 100 mls/hr 10/18/20 20:00 10/19/20 14:32 Zosyn 2.25 Gm/D5w 50 Ml IVPB Infused Q6H ANABEL Infusion Lidocaine 1 patch 10/15/20 14:00 10/19/20 08:28 Lidocaine 5% Patch TRANSDERM 1 patch DAILY ANABEL Administration Lisinopril 2.5 mg 10/14/20 09:00 10/18/20 08:36 Lisinopril 2.5 Mg Tablet PO 2.5 mg SuTuThSa@0900 ANABEL Administration Metoprolol Succinate 12.5 mg 10/14/20 09:00 10/19/20 08:28 Metoprolol Succinate Ext Rel 12.5 Mg Tabcr PO 12.5 mg QAM ANBAEL Administration Morphine Sulfate 2 mg 10/15/20 13:34 10/19/20 01:59 Morphine Sulfate (*Crx) 2 Mg/Ml Inj IV PUSH 2 mg Q4H PRN Administration Breakthrough Pain Ropinirole HCl 2 mg 10/14/20 21:00 10/18/20 20:12 Ropinirole Hcl 1 Mg Tablet PO 2 mg HS ANABEL Administration Radiology Results: ITS Impressions Chest X-Ray 10/13/20 14:11 Impression: 1: Right perihilar infiltrates, suspicious for pneumonia. Head CT 10/13/20 14:51 IMPRESSION: 1. Stable mild nonspecific cerebral white matter disease, which likely represents chronic small vessel ischemic disease. Labs Labs: Laboratory Results - last 24 hr 10/19/20 10/19/20 05:19 05:19 WBC 9.7 RBC 2.74 L Hgb 7.5 L Hct 25.0 L MCV 91.2 MCH 27.4 MCHC 30.0 L RDW 15.9 H Plt Count 339 MPV
--- NOTE | 2020-10-19 15:44 | PM.IMPN ---
Progress Note: A&P Assessment and Plan (1) Sepsis: Code(s): A41.9 - Sepsis, unspecified organism Status: Acute Assessment and Plan: Patient met criteria for sepsis with hypotension, tachycardia and leukocytosis in the setting of possible pneumonia versus UTI verses decubitus ulcer infection. Patient was started on IV antibiotics with Zosyn Blood cultures NG, urine culture brinda, wound growing staph aureus which could be colonization Patient remains afebrile, stable blood pressure, normal oxygenation on room air and respiratory rate. Continue monitor vital signs and leukocytosis. (2) Acute hypotension: Code(s): I95.9 - Hypotension, unspecified Status: Acute Assessment and Plan: Most likely secondary to dehydration secondary to sepsis verses lack of appetite and eating. He was given IV fluids in the ER with improvement of his blood pressure. Blood pressure is improved with IV fluid hydration, 106/52 Continue monitoring respiratory status Continue monitoring BP (3) Decubital ulcer: Qualifiers: Pressure injury location: sacral region Pressure injury stage: unstageable Qualified Code(s): L89.150 - Pressure ulcer of sacral region, unstageable Code(s): L89.90 - Pressure ulcer of unspecified site, unspecified stage Status: Chronic Assessment and Plan: Very large stage IV decubitus ulcer ([id number]). IV antibiotics have been started on the patient Wound culture staph with sensitivity pending to surgery for debridement 10/16 , cultures taken again, probable osteo. ID feels osteo and recommends 28 days of Zosyn today day 6 (4) Near syncope: Code(s): R55 - Syncope and collapse Status: Acute Assessment and Plan: Most likely secondary to hypotension, dehydration as well as infection. Improved with IV fluids (5) Acute renal failure (ARF): Code(s): N17.9 - Acute kidney failure, unspecified Status: Acute Assessment and Plan: Last admission patient had a dialysis catheter placed and has been receiving dialysis. Currently on admission his creatinine was 2.1 .This admission had AKF most likely due to infection versus dehydration. Renal function improved to 1.5 today. Nephrology following Hold on dialysis at this time Continue monitoring renal function and Nephrology's input is greatly appreciated. (6) CAD (coronary artery disease): Code(s): I25.10 - Atherosclerotic heart disease of [place] coronary artery without angina pectoris Status: Acute Assessment and Plan: Denies any chest pain at this time. Continue aspirin at home medications. Continue monitoring. (7) Cardiomyopathy: Code(s): I42.9 - Cardiomyopathy, unspecified Status: Acute Assessment and Plan: Last admission found to have systolic EF of 20-25%. Will continue monitoring fluid status to ensure we do not fluid overload him due to his dehydration. Continue monitoring respiratory status and fluid status with IV fluid hydration due to sepsis and dehydration. (8) Paroxysmal atrial fibrillation: Code(s): I48.0 - Paroxysmal atrial fibrillation Status: Acute Assessment and Plan: Telemetry shows normal sinus rhythm with a heart rate in the 90s. No AFib noted on tele. Continue Eliquis at this time. (9) Decubitus ulcer of sacral region, stage 4: Code(s): L89.154 - Pressure ulcer of sacral region, stage 4 Status: Acute Assessment and Plan: Osteo. Local wound care. Twenty-eight days IV antibiotics Subjective Da
[2020-10-19 16:00] VITALS: BP 117/65; PULSE 92; RESP 14; TEMP 37.1; O2SAT 100
[2020-10-19] MEDS: rOPINIRole HCL 1 MG TABLET 2 MG PO (20:10)
[2020-10-19 21:15] VITALS: BP 106/58; PULSE 97; RESP 18; TEMP 37.1; O2SAT 99
[2020-10-20 02:18] VITALS: BP 109/62; PULSE 95; RESP 18; TEMP 36.9; O2SAT 98
[2020-10-20] MEDS: HYDROcodone/acetaminophen (*CRX) 10-325 MG TABLET 1 TAB PO ×3 (03:07→20:08)
[2020-10-20 06:14] VITALS: BP 105/56; PULSE 86; RESP 16; TEMP 36.9; O2SAT 97
[2020-10-20] MEDS: ASPIRIN 81 MG CHEWABLE TABLET PO (08:16)
[2020-10-20] MEDS: LIDOCAINE 5% PATCH 1 PATCH TRANSDERM (08:16)
[2020-10-20] MEDS: lisinopriL 2.5 MG TABLET PO (08:16)
[2020-10-20] MEDS: APIXABAN 5 MG TABLET PO ×2 (08:16→20:07)
[2020-10-20 08:17] VITALS: PULSE 76
[2020-10-20] MEDS: ATORVASTATIN 40 MG TABLET PO (08:17)
[2020-10-20] MEDS: METOPROLOL SUCCINATE EXT REL 12.5 MG TABCR PO (08:17)
[2020-10-20] MEDS: MORPHINE SULFATE (*CRX) 2 MG/ML INJ IV PUSH ×2 (08:18→16:47)
[2020-10-20 09:05] LABS: Albumin Level 2.1 g/dL (3.5-5.1); Anion Gap -1 mmol/L (8-16); Blood Urea Nitrogen 18 mg/dL (9-20); Calcium 7.3 mg/dL (8.4-10.2); Carbon Dioxide 28 mmol/L (22-30); Chloride 102 mmol/L (98-107); Estimated CRCL calculation 40 ml/min; Estimated Glomerular Filt Rate 45; Glucose 85 mg/dL (75-110); Phosphorus 2.5 mg/dL (2.5-4.5); Potassium 3.9 mmol/L (3.4-5.0); Sodium 129 mmol/L (137-145)
--- NOTE | 2020-10-20 12:08 | P.PNNP_ITS ---
Progress Note: A&P Assessment and Plan (1) Acute renal failure (ARF): Code(s): N17.9 - Acute kidney failure, unspecified Status: Acute Assessment and Plan: * thought to be secondary to ATN from previous infection and hemodynamic instability * was requiring renal replacement therapy/dialysis as an outpatient prior to admission * however, renal function has been improving associated with better urine output -- hence, his kidney function seems to be recovering - he has been off dialysis now for almost a week now - creatinine appears to have stabilized around 1.5mg/dl (possible new baseline?) * continue to hold dialysis at this time * following trend of repeat labs and UOP * will attempt removal of tunneled HD catheter prior to discharge (2) Acute hypotension: Code(s): I95.9 - Hypotension, unspecified Status: Acute Assessment and Plan: * appears to be doing better at this time (holding steady in the 100s systolic range) * s/p IVF resuscitation * concern that infection/sepsis (#3) is playing a role on top of volume depletio n/dehydration * his underlying cardiomyopathy may be contributing as well * follow trend of hemodynamics (3) Decubital ulcer: Qualifiers: Pressure injury location: sacral region Pressure injury stage: unstageable Qualified Code(s): L89.150 - Pressure ulcer of sacral region, unstageable Code(s): L89.90 - Pressure ulcer of unspecified site, unspecified stage Status: Chronic Assessment and Plan: * potential etiology of sepsis criteria (hypotension, tachycardia and leukocytosis) * on antibiotic therapy * blood cultures negative * Surgery following -- s/p debridement with concerns for possible osteomyelitis * Infectious Disease recommendations noted for antibiotic (4) Hyponatremia: Code(s): E87.1 - Hypo-osmolality and hyponatremia Status: Acute Assessment and Plan: * may be partly related to renal insufficiency along with cardiomyopathy * follow trend as appears stable * would change al IV medications/IVPBs to use normal saline as carrier fluid if possible * given his cardiomyopathy, suspect he will need to resume diuretic therapy and this may help as well * follow trend for now (5) Anemia: Code(s): D64.9 - Anemia, unspecified Status: Acute Assessment and Plan: * due to previous dialyis dependent RENETTA, possible new baseline CKD, and acute illness * on Epogen 3x/week * check anemia studies but not a candidate for IV venofer given acute infection (6) Encephalopathy: Code(s): G93.40 - Encephalopathy, unspecified Status: Acute Assessment and Plan: * has underling dementia * seems at baseline if not better * follow mentation Will continue to follow. Subjective Date/time seen: 10/20/20 12:08 No new issues or problems to report at this time; he still seems so surprised/shocked by how deconditioned he has become in the last several weeks in general; no events overnight or earlier this AM. Exam Narrative: Exam Narrative: General: WD/WN male in NAD Heart: normal S1 and S2; no rub Lungs: clear to auscultation Abdomen: soft, nontender, nondistended, positive bowel sounds Extremities: no cyanosis or clubbing; trace edema Skin: warm and intact Objective Data Vital Signs Vital Signs: Vital Signs Temp Pulse Resp BP Pulse Ox 10/20/20 08:17 76
--- NOTE | 2020-10-20 12:08 | PM.PNNEP ---
Progress Note: A&P Assessment and Plan (1) Acute renal failure (ARF): Code(s): N17.9 - Acute kidney failure, unspecified Status: Acute Assessment and Plan: thought to be secondary to ATN from previous infection and hemodynamic instability was requiring renal replacement therapy/dialysis as an outpatient prior to admission however, renal function has been improving associated with better urine output -- hence, his kidney function seems to be recovering - he has been off dialysis now for almost a week now - creatinine appears to have stabilized around 1.5mg/dl (possible new baseline?) continue to hold dialysis at this time following trend of repeat labs and UOP will attempt removal of tunneled HD catheter prior to discharge (2) Acute hypotension: Code(s): I95.9 - Hypotension, unspecified Status: Acute Assessment and Plan: appears to be doing better at this time (holding steady in the 100s systolic range) s/p IVF resuscitation concern that infection/sepsis (#3) is playing a role on top of volume depletion/dehydration his underlying cardiomyopathy may be contributing as well follow trend of hemodynamics (3) Decubital ulcer: Qualifiers: Pressure injury location: sacral region Pressure injury stage: unstageable Qualified Code(s): L89.150 - Pressure ulcer of sacral region, unstageable Code(s): L89.90 - Pressure ulcer of unspecified site, unspecified stage Status: Chronic Assessment and Plan: potential etiology of sepsis criteria (hypotension, tachycardia and leukocytosis) on antibiotic therapy blood cultures negative Surgery following -- s/p debridement with concerns for possible osteomyelitis Infectious Disease recommendations noted for antibiotic (4) Hyponatremia: Code(s): E87.1 - Hypo-osmolality and hyponatremia Status: Acute Assessment and Plan: may be partly related to renal insufficiency along with cardiomyopathy follow trend as appears stable would change al IV medications/IVPBs to use normal saline as carrier fluid if possible given his cardiomyopathy, suspect he will need to resume diuretic therapy and this may help as well follow trend for now (5) Anemia: Code(s): D64.9 - Anemia, unspecified Status: Acute Assessment and Plan: due to previous dialyis dependent RENETTA, possible new baseline CKD, and acute illness on Epogen 3x/week check anemia studies but not a candidate for IV venofer given acute infection (6) Encephalopathy: Code(s): G93.40 - Encephalopathy, unspecified Status: Acute Assessment and Plan: has underling dementia seems at baseline if not better follow mentation Will continue to follow. Subjective Date/time seen: 10/20/20 12:08 No new issues or problems to report at this time; he still seems so surprised/shocked by how deconditioned he has become in the last several weeks in general; no events overnight or earlier this AM. Exam Narrative: Exam Narrative: General: WD/WN male in NAD Heart: normal S1 and S2; no rub Lungs: clear to auscultation Abdomen: soft, nontender, nondistended, positive bowel sounds Extremities: no cyanosis or clubbing; trace edema Skin: warm and intact Objective Data Vital Signs Vital Signs: Vital Signs Temp Pulse Resp BP Pulse Ox 10/20/20 08:17 76 10/20/20 06:14 36.9 C 86 16 105/56 L 97 10/20/20 02:18 36.9 C 95 18 109/62 98 10/19/20 21:15 37.1 C 97 18 106/58 L 99 10/19/20 16:00 37.1 C 92 14 117/65 100 10/19/20 13:56 36.8 C 101 H 18 98/59 L 100 Intake/Output Intake/Output: Intake & Output 10/17/20 10/18/20 10/19/20 10/20/20 23:59 23:59 23:59 23:59 Intake Total 2880 2900 2150 930 Output Total 1400 1375 1625 1750 Balance 1480 1525 525 -820 Meds/Results Medications: Active Medications Generic Name Dose Route Start Last Admin T
--- NOTE | 2020-10-20 13:41 | PM.IMPN ---
Progress Note: A&P Assessment and Plan (1) Sepsis: Code(s): A41.9 - Sepsis, unspecified organism Status: Acute Assessment and Plan: Patient met criteria for sepsis with hypotension, tachycardia and leukocytosis in the setting of possible pneumonia versus UTI verses decubitus ulcer infection. Patient was started on IV antibiotics with Zosyn Blood cultures NG, urine culture brinda, wound growing staph aureus MRSA so will add Vanc pending ID recommendations Patient remains afebrile, stable blood pressure, normal oxygenation on room air and respiratory rate. Continue monitor vital signs and leukocytosis. (2) Acute hypotension: Code(s): I95.9 - Hypotension, unspecified Status: Acute Assessment and Plan: Most likely secondary to dehydration secondary to sepsis verses lack of appetite and eating. He was given IV fluids in the ER with improvement of his blood pressure. Blood pressure is improved with IV fluid hydration, 106/52 Continue monitoring respiratory status Continue monitoring BP (3) Decubital ulcer: Qualifiers: Pressure injury location: sacral region Pressure injury stage: unstageable Qualified Code(s): L89.150 - Pressure ulcer of sacral region, unstageable Code(s): L89.90 - Pressure ulcer of unspecified site, unspecified stage Status: Chronic Assessment and Plan: Very large stage IV decubitus ulcer ([id number]). IV antibiotics have been started on the patient Wound culture staph , MRSA and will add vanc to surgery for debridement 10/16 , cultures taken again, probable osteo. ID feels osteo and recommends 28 days of Zosyn today day 7, broaden to include MRSA coverage wound vac placed 10/19 PICC to be placed for rx (4) Near syncope: Code(s): R55 - Syncope and collapse Status: Acute Assessment and Plan: Most likely secondary to hypotension, dehydration as well as infection. Improved with IV fluids (5) Acute renal failure (ARF): Code(s): N17.9 - Acute kidney failure, unspecified Status: Acute Assessment and Plan: Last admission patient had a dialysis catheter placed and has been receiving dialysis. Currently on admission his creatinine was 2.1 .This admission had AKF most likely due to infection versus dehydration. Renal function improved to 1.5 again today. Nephrology following Hold on dialysis at this time Continue monitoring renal function and Nephrology's input is greatly appreciated. (6) CAD (coronary artery disease): Code(s): I25.10 - Atherosclerotic heart disease of [place] coronary artery without angina pectoris Status: Acute Assessment and Plan: Denies any chest pain at this time. Continue aspirin at home medications. Continue monitoring. (7) Cardiomyopathy: Code(s): I42.9 - Cardiomyopathy, unspecified Status: Acute Assessment and Plan: Last admission found to have systolic EF of 20-25%. Will continue monitoring fluid status to ensure we do not fluid overload him due to his dehydration. Continue monitoring respiratory status and fluid status with IV fluid hydration due to sepsis and dehydration. continue low dose metoprolol and BRAD (8) Paroxysmal atrial fibrillation: Code(s): I48.0 - Paroxysmal atrial fibrillation Status: Acute Assessment and Plan: Telemetry shows normal sinus rhythm with a heart rate in the 90s. No AFib noted on tele. Continue Eliquis and metoprolol at this time. (9) Decubitus ulcer of sacral region, stage 4: Code(s): L89.154 - Pre
[2020-10-20 14:30] VITALS: BP 100/60; PULSE 90; RESP 16; TEMP 36.7; O2SAT 98
[2020-10-20] MEDS: LIDOCAINE HCL 1% PF INJ 5 ML VIAL INFILTRATE (15:54)
[2020-10-20 16:00] VITALS: BP 125/68; PULSE 54; RESP 16; TEMP 36.7; O2SAT 99
[2020-10-20] MEDS: CENTRAL LINE FLUSH 10 ML IV PUSH (20:07)
[2020-10-20] MEDS: rOPINIRole HCL 1 MG TABLET 2 MG PO (20:07)
[2020-10-20 21:35] VITALS: BP 113/60; PULSE 113; RESP 16; TEMP 36.9; O2SAT 96
[2020-10-21] VITALS (11 sets, daily range): BP systolic 92–130; BP diastolic 45–71; PULSE 76–111; RESP 16–20; TEMP 36.6–37.4; O2SAT 92–99
[2020-10-21] MEDS: CENTRAL LINE FLUSH 10 ML IV PUSH ×3 (01:57→21:41)
[2020-10-21 02:41] LABS: Basophils Absolute Auto 0.1 K/mm3 (0.0-0.1); Basophils Percent Auto 0.6 % (0.2-1.2); Eosinophils Absolute Auto 0.2 K/mm3 (0-0.3); Eosinophils Percent Auto 1.4 % (0-4.4); Immature Granulocyte Percent A 0.9 % (0-0.5); Lymphocytes Absolute Auto 3.16 K/mm3 (0.9-3.2); Lymphocytes Percent Auto 29.2 % (18.3-44.2); Mean Corpuscular HGB Conc 30.5 g/dl (32-36); Mean Corpuscular Hemoglobin 27.6 pg (26-34); Mean Corpuscular Volume 90.5 fl (80-100); Mean Platelet Volume 9.5 fl (7.4-10.4); Monocytes Absolute Auto 0.8 K/mm3 (0.1-0.6); Monocytes Percent Auto 7.2 % (2.6-8.5); Neutrophils Absolute Auto 6.6 K/mm3 (1.3-6.7); Neutrophils Percent Auto 60.7 % (45.5-73.1); Platelet Count Result 368 k/mm3 (150-375); Red Blood Count 2.43 M/mm3 (4.6-6.20); Red Cell Distribution Width 16.2 % (11.5-14.5); White Blood Count 10.8 K/mm3 (4.5-10.0)
[2020-10-21 02:45] LABS: Hemoglobin 6.7 g/dL (14.0-18.0)
[2020-10-21] MEDS: HYDROcodone/acetaminophen (*CRX) 10-325 MG TABLET 1 TAB PO ×4 (02:45→21:40)
[2020-10-21 02:55] LABS: Anion Gap 1 mmol/L (8-16); Blood Urea Nitrogen 18 mg/dL (9-20); Calcium 7.1 mg/dL (8.4-10.2); Carbon Dioxide 28 mmol/L (22-30); Chloride 100 mmol/L (98-107); Estimated CRCL calculation 38 ml/min; Estimated Glomerular Filt Rate 42; Glucose 86 mg/dL (75-110); Phosphorus 2.7 mg/dL (2.5-4.5); Potassium 3.9 mmol/L (3.4-5.0); Sodium 129 mmol/L (137-145)
[2020-10-21] MEDS: SODIUM CHLORIDE 0.9% IV 250 ML 30 ML IV CONT (05:44)
[2020-10-21] MEDS: ATORVASTATIN 40 MG TABLET PO (08:40)
[2020-10-21] MEDS: METOPROLOL SUCCINATE EXT REL 12.5 MG TABCR PO (08:40)
[2020-10-21] MEDS: ASPIRIN 81 MG CHEWABLE TABLET PO (08:40)
[2020-10-21] MEDS: APIXABAN 5 MG TABLET PO ×2 (08:40→20:31)
[2020-10-21] MEDS: LIDOCAINE 5% PATCH 1 PATCH TRANSDERM (08:41)
[2020-10-21] MEDS: lisinopriL 2.5 MG TABLET PO (08:41)
[2020-10-21 08:55] LABS: IFOB Positive Control Positive; Immunochemical Fecal Occult Bl Negative (N)
--- NOTE | 2020-10-21 12:06 | PM.PNNEP ---
Progress Note: A&P Assessment and Plan (1) Acute renal failure (ARF): Code(s): N17.9 - Acute kidney failure, unspecified Status: Acute Assessment and Plan: thought to be secondary to ATN from previous infection and hemodynamic instability was requiring renal replacement therapy/dialysis as an outpatient prior to admission however, renal function has been improving associated with better urine output -- hence, his kidney function seems to be recovering - he has been off dialysis now for almost a week now - creatinine appears to have stabilized around 1.5 - 1.6mg/dl (possible new baseline?) continue to hold dialysis at this time following trend of repeat labs and UOP will attempt removal of tunneled HD catheter prior to discharge (2) Acute hypotension: Code(s): I95.9 - Hypotension, unspecified Status: Acute Assessment and Plan: appears to be doing better at this time (holding steady in the 100s systolic range) s/p IVF resuscitation concern that infection/sepsis (#3) is playing a role on top of volume depletion/dehydration his underlying cardiomyopathy may be contributing as well follow trend of hemodynamics (3) Decubital ulcer: Qualifiers: Pressure injury location: sacral region Pressure injury stage: unstageable Qualified Code(s): L89.150 - Pressure ulcer of sacral region, unstageable Code(s): L89.90 - Pressure ulcer of unspecified site, unspecified stage Status: Chronic Assessment and Plan: potential etiology of sepsis criteria (hypotension, tachycardia and leukocytosis) on antibiotic therapy blood cultures negative Surgery following -- s/p debridement with concerns for possible osteomyelitis Infectious Disease recommendations noted for antibiotic (4) Hyponatremia: Code(s): E87.1 - Hypo-osmolality and hyponatremia Status: Acute Assessment and Plan: may be partly related to renal insufficiency along with cardiomyopathy follow trend as appears stable would change al IV medications/IVPBs to use normal saline as carrier fluid if possible given his cardiomyopathy, suspect he will need to resume diuretic therapy and this may help as well follow trend for now (5) Anemia: Code(s): D64.9 - Anemia, unspecified Status: Acute Assessment and Plan: due to previous dialyis dependent RENETTA, possible new baseline CKD, and acute illness on Epogen 3x/week check anemia studies but not a candidate for IV venofer given acute infection (6) Encephalopathy: Code(s): G93.40 - Encephalopathy, unspecified Status: Acute Assessment and Plan: has underling dementia seems at baseline if not better follow mentation Will continue to follow. Subjective Date/time seen: 10/21/20 12:06 No apparent issues or complaints voiced at this time aside from some loose stools; states he is eating and drinking well; no events overnight or earlier this AM; no apparent distress voiced; pain control seems satisfactory as well; still seems worried about his general deconditioned state. Exam Narrative: Exam Narrative: General: WD/WN male in NAD Heart: normal S1 and S2; no rub Lungs: clear to auscultation Abdomen: soft, nontender, nondistended, positive bowel sounds Extremities: no cyanosis or clubbing; trace edema Skin: no rash or nodules Objective Data Vital Signs Vital Signs: Vital Signs Temp Pulse Resp BP Pulse Ox 10/21/20 10:00 36.8 C 97 16 92/45 L 99 10/21/20 08:40 76 10/21/20 08:35 36.8 C 95 16 99/56 L 97 10/21/20 07:45 36.9 C 111 H 18 119/71 98 10/21/20 06:45 36.7 C 98 16 105/62 98 10/21/20 05:45 36.6 C 93 18 102/59 L 97 10/21/20 05:30 37.1 C 94 18 104/60 98 10/21/20 02:00 37.0 C 105 H 18 104/55 L 96 10/20/20 21:35 36.9 C 113 H 16 113/60 96 10/20/20 16:00 36.7 C 54 L 16 125/68 99 Intake/Output In
--- NOTE | 2020-10-21 12:06 | P.PNNP_ITS ---
Progress Note: A&P Assessment and Plan (1) Acute renal failure (ARF): Code(s): N17.9 - Acute kidney failure, unspecified Status: Acute Assessment and Plan: * thought to be secondary to ATN from previous infection and hemodynamic instability * was requiring renal replacement therapy/dialysis as an outpatient prior to admission * however, renal function has been improving associated with better urine output -- hence, his kidney function seems to be recovering - he has been off dialysis now for almost a week now - creatinine appears to have stabilized around 1.5 - 1.6mg/dl (possible new baseline?) * continue to hold dialysis at this time * following trend of repeat labs and UOP * will attempt removal of tunneled HD catheter prior to discharge (2) Acute hypotension: Code(s): I95.9 - Hypotension, unspecified Status: Acute Assessment and Plan: * appears to be doing better at this time (holding steady in the 100s systolic range) * s/p IVF resuscitation * concern that infection/sepsis (#3) is playing a role on top of volume de pletion/dehydration * his underlying cardiomyopathy may be contributing as well * follow trend of hemodynamics (3) Decubital ulcer: Qualifiers: Pressure injury location: sacral region Pressure injury stage: unstageable Qualified Code(s): L89.150 - Pressure ulcer of sacral region, unstageable Code(s): L89.90 - Pressure ulcer of unspecified site, unspecified stage Status: Chronic Assessment and Plan: * potential etiology of sepsis criteria (hypotension, tachycardia and leukocytosis) * on antibiotic therapy * blood cultures negative * Surgery following -- s/p debridement with concerns for possible osteomyelitis * Infectious Disease recommendations noted for antibiotic (4) Hyponatremia: Code(s): E87.1 - Hypo-osmolality and hyponatremia Status: Acute Assessment and Plan: * may be partly related to renal insufficiency along with cardiomyopathy * follow trend as appears stable * would change al IV medications/IVPBs to use normal saline as carrier fluid if possible * given his cardiomyopathy, suspect he will need to resume diuretic therapy and this may help as well * follow trend for now (5) Anemia: Code(s): D64.9 - Anemia, unspecified Status: Acute Assessment and Plan: * due to previous dialyis dependent RENETTA, possible new baseline CKD, and acute illness * on Epogen 3x/week * check anemia studies but not a candidate for IV venofer given acute infection (6) Encephalopathy: Code(s): G93.40 - Encephalopathy, unspecified Status: Acute Assessment and Plan: * has underling dementia * seems at baseline if not better * follow mentation Will continue to follow. Subjective Date/time seen: 10/21/20 12:06 No apparent issues or complaints voiced at this time aside from some loose s tools; states he is eating and drinking well; no events overnight or earlier this AM; no apparent distress voiced; pain control seems satisfactory as well; still seems worried about his general deconditioned state. Exam Narrative: Exam Narrative: General: WD/WN male in NAD Heart: normal S1 and S2; no rub Lungs: clear to auscultation Abdomen: soft, nontender, nondistended, positive bowel sounds Extremities: no cyanosis or clubbing; trace edema Skin: no rash or nodules Objective Data Vital Signs Vital Signs: Vit
[2020-10-21] MEDS: LOPERAMIDE HCL 2 MG CAPSULE PO ×2 (13:10→15:26)
[2020-10-21 13:52] LABS: Hematocrit 24.4 % (42.0-52.0); Hemoglobin 7.6 g/dL (14.0-18.0)
--- NOTE | 2020-10-21 14:39 | PM.IMPN ---
Progress Note: A&P Assessment and Plan (1) Sepsis: Code(s): A41.9 - Sepsis, unspecified organism Status: Acute Assessment and Plan: Patient met criteria for sepsis with hypotension, tachycardia and leukocytosis in the setting of possible pneumonia versus UTI verses decubitus ulcer infection. Patient was started on IV antibiotics with Zosyn Blood cultures NG, urine culture brinda, wound growing staph aureus MRSA so added Vanc 10/20 pending ID recommendations Patient remains afebrile, stable blood pressure, normal oxygenation on room air and respiratory rate. Continue monitor vital signs and leukocytosis. (2) Acute hypotension: Code(s): I95.9 - Hypotension, unspecified Status: Acute Assessment and Plan: Most likely secondary to dehydration secondary to sepsis verses lack of appetite and eating. He was given IV fluids in the ER with improvement of his blood pressure. Blood pressure is improved with IV fluid hydration, 10o/60 Continue monitoring respiratory status Continue monitoring BP (3) Decubital ulcer: Qualifiers: Pressure injury location: sacral region Pressure injury stage: unstageable Qualified Code(s): L89.150 - Pressure ulcer of sacral region, unstageable Code(s): L89.90 - Pressure ulcer of unspecified site, unspecified stage Status: Chronic Assessment and Plan: Very large stage IV decubitus ulcer ([id number]). IV antibiotics have been started on the patient Wound culture MRSA and added vanc 10/20 to surgery for debridement 10/16 , cultures taken again, probable osteo. ID feels osteo and recommends 28 days of Zosyn today day 8 zosyn and D#2 Vanc, wound vac placed 10/19 PICC placed 10/20 for rx (4) Near syncope: Code(s): R55 - Syncope and collapse Status: Acute Assessment and Plan: Most likely secondary to hypotension, dehydration as well as infection. Improved with IV fluids (5) Acute renal failure (ARF): Code(s): N17.9 - Acute kidney failure, unspecified Status: Acute Assessment and Plan: Last admission patient had a dialysis catheter placed and has been receiving dialysis. Currently on admission his creatinine was 2.1 .This admission had AKF most likely due to infection versus dehydration. Renal function improved to 1.6 today. Nephrology following Hold on dialysis at this time Continue monitoring renal function and Nephrology's input is greatly appreciated. (6) CAD (coronary artery disease): Code(s): I25.10 - Atherosclerotic heart disease of [place] coronary artery without angina pectoris Status: Acute Assessment and Plan: Denies any chest pain at this time. Continue aspirin at home medications. Continue monitoring. (7) Cardiomyopathy: Code(s): I42.9 - Cardiomyopathy, unspecified Status: Acute Assessment and Plan: Last admission found to have systolic EF of 20-25%. Will continue monitoring fluid status to ensure we do not fluid overload him due to his dehydration. Continue monitoring respiratory status and fluid status with IV fluid hydration due to sepsis and dehydration. continue low dose metoprolol and BRAD (8) Paroxysmal atrial fibrillation: Code(s): I48.0 - Paroxysmal atrial fibrillation Status: Acute Assessment and Plan: Telemetry shows normal sinus rhythm with a heart rate in the 90s. No AFib noted on tele. Continue Eliquis and metoprolol at this time. (9) Decubitus ulcer of sacral region, stage 4: Code(s): L89.154 - Pressure ulcer of sacral
[2020-10-21] MEDS: rOPINIRole HCL 1 MG TABLET 2 MG PO (20:31)
[2020-10-22 02:01] VITALS: BP 126/65; PULSE 98; RESP 18; TEMP 37.1; O2SAT 98
[2020-10-22] MEDS: HYDROcodone/acetaminophen (*CRX) 10-325 MG TABLET 1 TAB PO ×3 (03:40→16:03)
[2020-10-22] MEDS: LOPERAMIDE HCL 2 MG CAPSULE PO ×4 (03:40→21:03)
[2020-10-22] MEDS: CENTRAL LINE FLUSH 10 ML IV PUSH ×3 (06:16→20:56)
[2020-10-22] MEDS: CENTRAL LINE FLUSH 20 ML IV PUSH (06:16)
[2020-10-22 06:20] LABS: Basophils Absolute Auto 0.1 K/mm3 (0.0-0.1); Basophils Percent Auto 0.5 % (0.2-1.2); Eosinophils Absolute Auto 0.2 K/mm3 (0-0.3); Eosinophils Percent Auto 1.4 % (0-4.4); Hematocrit 25.1 % (42.0-52.0); Hemoglobin 7.8 g/dL (14.0-18.0); Immature Granulocyte Absolute 0.14 K/mm3 (0.00-0.031); Lymphocytes Absolute Auto 2.99 K/mm3 (0.9-3.2); Lymphocytes Percent Auto 20.5 % (18.3-44.2); Mean Corpuscular HGB Conc 31.1 g/dl (32-36); Monocytes Absolute Auto 0.8 K/mm3 (0.1-0.6); Monocytes Percent Auto 5.6 % (2.6-8.5); Neutrophils Absolute Auto 10.4 K/mm3 (1.3-6.7); Platelet Count Result 348 k/mm3 (150-375); Red Blood Count 2.79 M/mm3 (4.6-6.20); White Blood Count 14.6 K/mm3 (4.5-10.0)
[2020-10-22 06:32] LABS: Albumin Level 2.1 g/dL (3.5-5.1); Anion Gap 2 mmol/L (8-16); Blood Urea Nitrogen 16 mg/dL (9-20); Calcium 7.2 mg/dL (8.4-10.2); Carbon Dioxide 28 mmol/L (22-30); Chloride 100 mmol/L (98-107); Estimated CRCL calculation 42 ml/min; Estimated Glomerular Filt Rate 45; Glucose 93 mg/dL (75-110); Phosphorus 2.9 mg/dL (2.5-4.5); Potassium 3.7 mmol/L (3.4-5.0); Sodium 130 mmol/L (137-145)
--- NOTE | 2020-10-22 09:13 | PCOTNOTE ---
Attempted OT treatment this AM. Pt reports I am in to much pain to do therapy today . Will attempt OT treatment at later time, RN notified.
[2020-10-22 10:00] VITALS: BP 98/59; PULSE 52; RESP 17; TEMP 36.9; O2SAT 97
[2020-10-22 10:05] VITALS: PULSE 73
[2020-10-22] MEDS: ASPIRIN 81 MG CHEWABLE TABLET PO (10:05)
[2020-10-22] MEDS: METOPROLOL SUCCINATE EXT REL 12.5 MG TABCR PO (10:05)
[2020-10-22] MEDS: LIDOCAINE 5% PATCH 1 PATCH TRANSDERM (10:05)
[2020-10-22] MEDS: ATORVASTATIN 40 MG TABLET PO (10:06)
[2020-10-22] MEDS: EPOETIN ALFA-EPBX 10,000 UNITS/ML VIAL 10000 UNITS SUB-Q (10:06)
[2020-10-22] MEDS: APIXABAN 5 MG TABLET PO (10:06)
--- NOTE | 2020-10-22 11:01 | PM.PNGS ---
Subjective Subjective Date/Time Seen: 10/22/20 11:01 Nephrology requested removal of tunneled dialysis cath. Patient is currently on Eliquis and this cannot be removed today due to this. Eliquis will have to be held 2-3 days before catheter is removed to prevent significant bleeding. If patient is going to be discharged to residential facility soon, this will have to be delayed to be done in the office setting once the Eliquis can be held. If he is still going to be here a few more days, we can hold his Eliquis today and planned to remove the dialysis catheter on Thursday or . I instructed the nurse to notify me once she has discussed discharge plans with hospitalist. Quality VTE Prophylaxis VTE prophylaxis: mechanical ordered
--- NOTE | 2020-10-22 13:25 | WPDINFPN2 ---
Progress Note: A&P Assessment and Plan (1) Decubitus ulcer of sacral region, stage 4: Code(s): L89.154 - Pressure ulcer of sacral region, stage 4 Status: Acute Assessment and Plan: 1. Sacral decubitus ulcer with acute osteomyelitis. MRSA isolated, and I agree vanc is indicated. 2. CRF, no ongoing HD however. Permacath or equivalent in R IJ 3. Antibiotic associated diarrhea, C diff infection is unlikely, assay inprocess. REC PipTazo # 10. Due to potential for nephrotoxicity with the Vanc will switch to AmpSulbactam # 1, through 11/11. Agree Vanc #3, also through 11/11. Will probably need Roblero, due to potential need for fistula in future, UNLESS Dr Ly approves of a PICC Subjective Date/time seen: 10/22/20 13:25 Interval history: loose bm. no abd pain, no dyspnea Exam Narrative: Exam Narrative: afebrile Const: General: no acute distress Eyes: General: appearance normal, both eyes and all related structures Resp: Effort & Inspection: normal respiratory effort Auscultation: clear to auscultation bilaterally Cardio: Rate: regular rate Rhythm: regular rhythm Heart sounds: no gallops GI: Inspection: non-distended GI Palp: Yes Soft to palpation, No Tenderness to palpation present (GI) and No Guarding due to palpation present (GI) Objective Data Vital Signs Vital Signs: Vital Signs - 24 hr 10/21/20 14:00 10/21/20 18:00 10/21/20 22:09 Temperature 37.0 C 37.3 C 37.4 C Pulse Rate 96 79 107 H Respiratory Rate 18 20 20 Blood Pressure 93/56 L 116/68 130/68 Pulse Oximetry 92 98 99 10/22/20 02:01 10/22/20 10:00 10/22/20 10:05 Temperature 37.1 C 36.9 C Pulse Rate 98 52 L 73 Respiratory Rate 18 17 Blood Pressure 126/65 98/59 L Pulse Oximetry 98 97 Intake/Output Intake/Output: Intake & Output 10/19/20 10/20/20 10/21/20 10/22/20 23:59 23:59 23:59 23:59 Intake Total 2150 2370 2800 790 Output Total 1625 3150 2150 1800 Balance 525 -780 650 -1010 Meds/Results Medications: Active Medications Generic Name Dose Route Start Last Admin Trade Name Freq PRN Reason Stop Dose Admin Acetaminophen 650 mg 10/14/20 02:53 10/15/20 21:50 Acetaminophen 325 Mg Tablet PO 650 mg Q4H PRN Administration Mild Pain (1-3) Or Fever Hydrocodone Bitart/Acetaminophen 1 tab 10/18/20 07:59 10/22/20 10:04 Hydrocodone/Acetaminophen (*Crx) 10-325 Mg Tablet PO 1 tab Q6H PRN Administration Pain Rated 7-10 Apixaban 5 mg 10/14/20 09:00 10/22/20 10:06 Apixaban 5 Mg Tablet PO 5 mg Q12HR ANABEL Administration Aspirin 81 mg 10/14/20 08:00 10/22/20 10:05 Aspirin 81 Mg Chewable Tablet PO 81 mg DAILY@0800 ANABEL Administration Atorvastatin Calcium 40 mg 10/14/20 09:00 10/22/20 10:06 Atorvastatin 40 Mg Tablet PO 40 mg DAILY ANABEL Administration Epoetin Andrei-epbx 10,000 units 10/15/20 09:00 10/22/20 10:06 Epoetin Andrei-Epbx 10,000 Units/Ml Vial SUB-Q 10,000 units MoWeFr@0900 ANABEL Administration Piperacillin Sod/Tazobactam Sod 2.25 gm in 50 mls @ 100 mls/hr 10/18/20 20:00 10/22/20 10:35 Zosyn 2.25 Gm/D5w 50 Ml IVPB Infused Q6H ANABEL Infusion Vancomycin HCl 1,500 mg in 500 mls @ 333.333 mls/hr 10/20/20 15:00 10/21/20 16:58 Vancomycin 1,500 Mg/D5w 500 Ml IVPB Infused Q24H ANABEL Infusion Lidocaine 1 patch 10/15/20 14:00 10/22/20 10:05 Lidocaine 5% Patch TRANSDERM 1 patch DAILY ANABEL Administration Lisinopril 2.5 mg 10/14/20 09:00 10/21/20 08:41 Lisinopril 2.5 Mg Tablet PO 2.5 mg SuTuThSa@0900 ANABEL Administration Loperamide HCl 2 mg 10/21/20 11:13 10/22/20 12:02 Loperamide Hcl 2 Mg Capsule PO 2 mg Q4H PRN Administration Diarrhea Metoprolol Succinate 12.5 mg 10/14/20 09:00 10/22/20 10:05 Metoprolol Succinate Ext Rel 12.5 Mg Tabcr PO 12.5 mg QAM ANABEL Administration Morphine Sulfate 2 mg 10/15/20 13:34 10/20/20 16:47 Morphine Sulfate (*Crx) 2 Mg/Ml Inj IV PUSH 2 mg Q4H PRN Administra
--- NOTE | 2020-10-22 13:54 | P.PNNP_ITS ---
Progress Note: A&P Assessment and Plan (1) Acute renal failure (ARF): Code(s): N17.9 - Acute kidney failure, unspecified Status: Acute Assessment and Plan: * thought to be secondary to ATN from previous infection and hemodynamic instability * urine output has picked up. * Creatinine has stabilized. * Dr. Mercer has seen for pulling his dialysis catheter out. (2) Acute hypotension: Code(s): I95.9 - Hypotension, unspecified Status: Acute Assessment and Plan: * Blood pressure has been better. * No longer requiring midodrine. (3) Decubital ulcer: Qualifiers: Pressure injury location: sacral region Pressure injury stage: unstageable Qualified Code(s): L89.150 - Pressure ulcer of sacral region, u nstageable Code(s): L89.90 - Pressure ulcer of unspecified site, unspecified stage Status: Chronic Assessment and Plan: * potential etiology of sepsis criteria (hypotension, tachycardia and leukocytosis) * on antibiotic therapy * blood cultures negative * Surgery following -- s/p debridement with concerns for possible osteomyelitis * Infectious Disease recommendations noted for antibiotic * He has a wound VAC on. * Patient courage try to keep off the wound. (4) Hyponatremia: Code(s): E87.1 - Hypo-osmolality and hyponatremia Status: Acute Assessment and Plan: * may be partly related to renal insufficiency along with cardiomyopathy * follow trend as appears stable * Minimize fluid intake (5) Anemia: Code(s): D64.9 - Anemia, unspecified Status: Acute Assessment and Plan: * due to previous dialyis dependent RENETTA, possible new baseline CKD, and acute illness * on Epogen 3x/week * check anemia studies but not a candidate for IV venofer given acute infection (6) Encephalopathy: Code(s): G93.40 - Encephalopathy, unspecified Status: Acute Assessment and Plan: * has underling dementia * seems at baseline if not better * follow mentation Subjective Date/time seen: 10/22/20 13:54 Interval history: patient is alert he is conversive. Lying flat in bed. Still a bit confused. Review of Systems Cardiovascular: Cardiovascular: Reports no additional cardiovascular complaints Respiratory: Respiratory: Reports no additional respiratory complaints Gastrointestinal: Gastrointestinal: Reports no additional gastrointestinal complaints Genitourinary: Genitourinary: Reports no additional male genitourinary complaints Exam Narrative: Exam Narrative: General: WD/WN male in NAD Heart: normal S1 and S2; no rub Lungs: clear Abdomen: soft, nontender, nondistended, positive bowel sounds Extremities: no cyanosis or clubbing; trace edema Skin: No acute rash Objective Data Vital Signs Vital Signs: Vital Signs - 24 hr 10/21/20 14:00 10/21/20 18:00 10/21/20 22:09 Temperature 37.0 C 37.3 C 37.4 C Pulse Rate 96 79 107 H Respiratory Rate 18 20 20 Blood Pressure 93/56 L 116/68 130/68 Pulse Oximetry 92 98 99 10/22/20 02:01 10/22/20 10:00 10/22/20 10:05 Temperature 37.1 C 36.9 C Pulse Rate 98 52 L 73 Respiratory Rate 18 17 Blood Pressure 126/65 98/59 L Pulse Oximetry 98 97 Intake/Output Intake/Output:
--- NOTE | 2020-10-22 13:54 | PM.PNNEP ---
Progress Note: A&P Assessment and Plan (1) Acute renal failure (ARF): Code(s): N17.9 - Acute kidney failure, unspecified Status: Acute Assessment and Plan: thought to be secondary to ATN from previous infection and hemodynamic instability urine output has picked up. Creatinine has stabilized. Dr. Mercer has seen for pulling his dialysis catheter out. (2) Acute hypotension: Code(s): I95.9 - Hypotension, unspecified Status: Acute Assessment and Plan: Blood pressure has been better. No longer requiring midodrine. (3) Decubital ulcer: Qualifiers: Pressure injury location: sacral region Pressure injury stage: unstageable Qualified Code(s): L89.150 - Pressure ulcer of sacral region, unstageable Code(s): L89.90 - Pressure ulcer of unspecified site, unspecified stage Status: Chronic Assessment and Plan: potential etiology of sepsis criteria (hypotension, tachycardia and leukocytosis) on antibiotic therapy blood cultures negative Surgery following -- s/p debridement with concerns for possible osteomyelitis Infectious Disease recommendations noted for antibiotic He has a wound VAC on. Patient courage try to keep off the wound. (4) Hyponatremia: Code(s): E87.1 - Hypo-osmolality and hyponatremia Status: Acute Assessment and Plan: may be partly related to renal insufficiency along with cardiomyopathy follow trend as appears stable Minimize fluid intake (5) Anemia: Code(s): D64.9 - Anemia, unspecified Status: Acute Assessment and Plan: due to previous dialyis dependent RENETTA, possible new baseline CKD, and acute illness on Epogen 3x/week check anemia studies but not a candidate for IV venofer given acute infection (6) Encephalopathy: Code(s): G93.40 - Encephalopathy, unspecified Status: Acute Assessment and Plan: has underling dementia seems at baseline if not better follow mentation Subjective Date/time seen: 10/22/20 13:54 Interval history: patient is alert he is conversive. Lying flat in bed. Still a bit confused. Review of Systems Cardiovascular: Cardiovascular: Reports no additional cardiovascular complaints Respiratory: Respiratory: Reports no additional respiratory complaints Gastrointestinal: Gastrointestinal: Reports no additional gastrointestinal complaints Genitourinary: Genitourinary: Reports no additional male genitourinary complaints Exam Narrative: Exam Narrative: General: WD/WN male in NAD Heart: normal S1 and S2; no rub Lungs: clear Abdomen: soft, nontender, nondistended, positive bowel sounds Extremities: no cyanosis or clubbing; trace edema Skin: No acute rash Objective Data Vital Signs Vital Signs: Vital Signs - 24 hr 10/21/20 14:00 10/21/20 18:00 10/21/20 22:09 Temperature 37.0 C 37.3 C 37.4 C Pulse Rate 96 79 107 H Respiratory Rate 18 20 20 Blood Pressure 93/56 L 116/68 130/68 Pulse Oximetry 92 98 99 10/22/20 02:01 10/22/20 10:00 10/22/20 10:05 Temperature 37.1 C 36.9 C Pulse Rate 98 52 L 73 Respiratory Rate 18 17 Blood Pressure 126/65 98/59 L Pulse Oximetry 98 97 Intake/Output Intake/Output: Intake & Output 10/19/20 10/20/20 10/21/20 10/22/20 23:59 23:59 23:59 23:59 Intake Total 2150 2370 2800 790 Output Total 1625 3150 2150 1800 Balance 525 -780 650 -1010 Meds/Results Medications: Active Medications Generic Name Dose Route Start Last Admin Trade Name Freq PRN Reason Stop Dose Admin Acetaminophen 650 mg 10/14/20 02:53 10/15/20 21:50 Acetaminophen 325 Mg Tablet PO 650 mg Q4H PRN Administration Mild Pain (1-3) Or Fever Hydrocodone Bitart/Acetaminophen 1 tab 10/18/20 07:59 10/22/20 10:04 Hydrocodone/Acetaminophen (*Crx) 10-325 Mg Tablet PO 1 tab Q6H PRN Administration Pain Rated 7-10 Apixaban 5 mg 10/14/20 09:00 10/22/20 10:0
[2020-10-22 14:00] VITALS: BP 118/66; PULSE 93; RESP 17; TEMP 37.5; O2SAT 100
--- NOTE | 2020-10-22 14:08 | PCPTNOTE ---
The PT treatment was unable to be completed today due to patient refusal. Will continue per Plan of Care frequency and duration.
[2020-10-22] MEDS: AMPICILLIN SULB 3 GM/NS 100 ML 3 GM/100 ML VIAL IVPB ×2 (14:19→20:55)
--- NOTE | 2020-10-22 14:39 | PCOTNOTE ---
OT treatment attempted. Patient Refusing this afternoon stating he is too tired and will not do anything. Patient continued to refuse despite encouragement.
--- NOTE | 2020-10-22 14:50 | PM.IMPN ---
Progress Note: A&P Assessment and Plan (1) Sepsis: Code(s): A41.9 - Sepsis, unspecified organism Status: Acute Assessment and Plan: Patient met criteria for sepsis with hypotension, tachycardia and leukocytosis in the setting of possible pneumonia versus UTI verses decubitus ulcer infection. Patient was started on IV antibiotics with Zosyn Blood cultures NG, urine culture brinda, wound growing staph aureus MRSA so added Vanc 10/20 to continue through 11/11 Patient remains afebrile, stable blood pressure, normal oxygenation on room air and respiratory rate. (2) Acute hypotension: Code(s): I95.9 - Hypotension, unspecified Status: Acute Assessment and Plan: Most likely secondary to dehydration secondary to sepsis verses lack of appetite and eating. He was given IV fluids in the ER with improvement of his blood pressure. Blood pressure is improved with IV fluid hydration, 100/60 today and is chronically low Continue monitoring respiratory status Continue monitoring BP (3) Decubital ulcer: Qualifiers: Pressure injury location: sacral region Pressure injury stage: unstageable Qualified Code(s): L89.150 - Pressure ulcer of sacral region, unstageable Code(s): L89.90 - Pressure ulcer of unspecified site, unspecified stage Status: Chronic Assessment and Plan: Very large stage IV decubitus ulcer ([id number]). IV antibiotics have been started on the patient Wound culture MRSA and added vanc 10/20 to surgery for debridement 10/16 , cultures taken again, probable osteo. ID feels osteo and recommends 28 days of Zosyn today day 9 zosyn and D#3 Vanc, ID changed to unasyn with vanc today both through 11/11 wound vac placed 10/19 PICC placed 10/20 for rx diarrhea and stool sent for cdiff (4) Near syncope: Code(s): R55 - Syncope and collapse Status: Acute Assessment and Plan: Most likely secondary to hypotension, dehydration as well as infection. Improved with IV fluids (5) Acute renal failure (ARF): Code(s): N17.9 - Acute kidney failure, unspecified Status: Acute Assessment and Plan: Last admission patient had a dialysis catheter placed and has been receiving dialysis. Currently on admission his creatinine was 2.1 .This admission had AKF most likely due to infection versus dehydration. Renal function improved to 1.5 today. Nephrology following Hold on dialysis at this time Surgery to remove tunnel cath 10/24 Hold apixaban until cath removed (6) CAD (coronary artery disease): Code(s): I25.10 - Atherosclerotic heart disease of [place] coronary artery without angina pectoris Status: Acute Assessment and Plan: Denies any chest pain at this time. Continue aspirin at home medications. Continue monitoring. (7) Cardiomyopathy: Code(s): I42.9 - Cardiomyopathy, unspecified Status: Acute Assessment and Plan: Last admission found to have systolic EF of 20-25%. Will continue monitoring fluid status to ensure we do not fluid overload him due to his dehydration. Continue monitoring respiratory status and fluid status continue low dose metoprolol and BRAD (8) Paroxysmal atrial fibrillation: Code(s): I48.0 - Paroxysmal atrial fibrillation Status: Acute Assessment and Plan: Telemetry shows normal sinus rhythm with a heart rate in the 90s. No AFib noted on tele. Continue metoprolol at this time. apixaban on hold now for cath removal (9) Decubitus ulcer of sacral region, stage 4: Code(s): L89.1
[2020-10-22 18:00] VITALS: BP 122/61; PULSE 71; RESP 19; TEMP 36.7; O2SAT 98
[2020-10-22] MEDS: rOPINIRole HCL 1 MG TABLET 2 MG PO (20:55)
[2020-10-22 22:00] VITALS: BP 145/72; PULSE 102; RESP 20; TEMP 36.3; O2SAT 99
[2020-10-23] VITALS (9 sets, daily range): BP systolic 99–109; BP diastolic 47–78; PULSE 70–101; RESP 18–20; TEMP 36.3–37; O2SAT 97–100
[2020-10-23] MEDS: LOPERAMIDE HCL 2 MG CAPSULE PO ×3 (05:00→21:24)
[2020-10-23] MEDS: CENTRAL LINE FLUSH 10 ML IV PUSH ×3 (05:00→21:22)
[2020-10-23] MEDS: HYDROcodone/acetaminophen (*CRX) 10-325 MG TABLET 1 TAB PO ×4 (05:01→23:31)
[2020-10-23] MEDS: AMPICILLIN SULB 3 GM/NS 100 ML 3 GM/100 ML VIAL IVPB ×3 (05:01→21:22)
[2020-10-23 05:03] LABS: Basophils Absolute Auto 0.1 K/mm3 (0.0-0.1); Basophils Percent Auto 0.6 % (0.2-1.2); Eosinophils Absolute Auto 0.2 K/mm3 (0-0.3); Eosinophils Percent Auto 1.2 % (0-4.4); Hematocrit 24.8 % (42.0-52.0); Hemoglobin 7.9 g/dL (14.0-18.0); Immature Granulocyte Absolute 0.11 K/mm3 (0.00-0.031); Immature Granulocyte Percent A 0.8 % (0-0.5); Lymphocytes Absolute Auto 3.13 K/mm3 (0.9-3.2); Lymphocytes Percent Auto 23.4 % (18.3-44.2); Mean Corpuscular HGB Conc 31.9 g/dl (32-36); Mean Corpuscular Hemoglobin 28.6 pg (26-34); Mean Corpuscular Volume 89.9 fl (80-100); Mean Platelet Volume 8.7 fl (7.4-10.4); Monocytes Absolute Auto 0.8 K/mm3 (0.1-0.6); Monocytes Percent Auto 6.1 % (2.6-8.5); Neutrophils Absolute Auto 9.1 K/mm3 (1.3-6.7); Neutrophils Percent Auto 67.9 % (45.5-73.1); Platelet Count Result 339 k/mm3 (150-375); Red Blood Count 2.76 M/mm3 (4.6-6.20); Red Cell Distribution Width 16.5 % (11.5-14.5); White Blood Count 13.4 K/mm3 (4.5-10.0)
[2020-10-23 05:20] LABS: Albumin Level 2.1 g/dL (3.5-5.1); Anion Gap 1 mmol/L (8-16); Blood Urea Nitrogen 15 mg/dL (9-20); Calcium 7.2 mg/dL (8.4-10.2); Carbon Dioxide 26 mmol/L (22-30); Chloride 102 mmol/L (98-107); Estimated CRCL calculation 45 ml/min; Estimated Glomerular Filt Rate 49; Glucose 90 mg/dL (75-110); Potassium 3.3 mmol/L (3.4-5.0); Sodium 129 mmol/L (137-145)
[2020-10-23] MEDS: ATORVASTATIN 40 MG TABLET PO (08:10)
[2020-10-23] MEDS: ASPIRIN 81 MG CHEWABLE TABLET PO (08:10)
[2020-10-23] MEDS: METOPROLOL SUCCINATE EXT REL 12.5 MG TABCR PO (08:11)
[2020-10-23] MEDS: LIDOCAINE 5% PATCH 1 PATCH TRANSDERM (08:12)
[2020-10-23] MEDS: lisinopriL 2.5 MG TABLET PO (08:12)
--- NOTE | 2020-10-23 10:51 | PCOTNOTE ---
Attempted to see Patient for A.M. OT treatment session. Patient verbalized he had just done leg therapy and was worn out. Patient requested I come back at a later time . Will attempt again.
--- NOTE | 2020-10-23 11:09 | P.PNNP_ITS ---
Progress Note: A&P Assessment and Plan (1) Acute renal failure (ARF): Code(s): N17.9 - Acute kidney failure, unspecified Status: Acute Assessment and Plan: * thought to be secondary to ATN from previous infection and hemodynamic instability * urine output is doing well * Creatinine has stabilized. * Dr. Mercer has seen for pulling his dialysis catheter out. (2) Acute hypotension: Code(s): I95.9 - Hypotension, unspecified Status: Acute Assessment and Plan: * Blood pressure has been better. * No longer requiring midodrine. (3) Decubital ulcer: Qualifiers: Pressure injury location: sacral region Pressure injury stage: unstageable Qualified Code(s): L89.150 - Pressure ulcer of sacral region, u nstageable Code(s): L89.90 - Pressure ulcer of unspecified site, unspecified stage Status: Chronic Assessment and Plan: * potential etiology of sepsis criteria (hypotension, tachycardia and leukocytosis) * on antibiotic therapy * wound nurses seeing and setting up to be on wound VAC (4) Hyponatremia: Code(s): E87.1 - Hypo-osmolality and hyponatremia Status: Acute Assessment and Plan: * may be partly related to renal insufficiency along with cardiomyopathy * follow trend as appears stable * Minimize fluid intake (5) Anemia: Code(s): D64.9 - Anemia, unspecified Status: Acute Assessment and Plan: * due to previous dialyis dependent RENETTA, possible new baseline CKD, and acute illness * on Epogen 3x/week * check anemia studies but not a candidate for IV venofer given acute infection * hemoglobin is stable (6) Encephalopathy: Code(s): G93.40 - Encephalopathy, unspecified Status: Acute Assessment and Plan: * has underling dementia * seems at baseline if not better * follow mentation Subjective Date/time seen: 10/23/20 11:09 Interval history: patient is alert he is conversive. Lying flat in bed. No chest pain or shortness of breath Exam Narrative: Exam Narrative: General: WD/WN male in NAD Heart: normal S1 and S2; no rub Lungs: clear Abdomen: soft, nontender, nondistended, positive bowel sounds Extremities: no cyanosis or clubbing; trace edema Skin: No acute rash Objective Data Vital Signs Vital Signs: Vital Signs - 24 hr 10/22/20 14:00 10/22/20 18:00 10/22/20 22:00 Temperature 37.5 C 36.7 C 36.3 C L Pulse Rate 93 71 102 H Respiratory Rate 17 19 20 Blood Pressure 118/66 122/61 145/72 H Pulse Oximetry 100 98 99 10/23/20 02:00 10/23/20 06:00 10/23/20 08:11 Temperature 37.0 C 36.9 C Pulse Rate 101 H 99 70 Respiratory Rate 20 20 Blood Pressure 104/60 103/47 L Pulse Oximetry 99 98 10/23/20 10:00 Temperature 36.9 C Pulse Rate 96 Respiratory Rate 18 Blood Pressure 102/55 L Pulse Oximetry 97 Intake/Output Intake/Output: Intake & Output 10/20/20 10/21/20 10/22/20 10/23/20 23:59 23:59 23:59 23:59 Intake Total 2370 2800 2270 1690 Output Total 3150 2150 2725 1100 Balance -780 209 -720 889 Meds/Results Medications: Active Medications Generic Name Do
--- NOTE | 2020-10-23 11:09 | PM.PNNEP ---
Progress Note: A&P Assessment and Plan (1) Acute renal failure (ARF): Code(s): N17.9 - Acute kidney failure, unspecified Status: Acute Assessment and Plan: thought to be secondary to ATN from previous infection and hemodynamic instability urine output is doing well Creatinine has stabilized. Dr. Mercer has seen for pulling his dialysis catheter out. (2) Acute hypotension: Code(s): I95.9 - Hypotension, unspecified Status: Acute Assessment and Plan: Blood pressure has been better. No longer requiring midodrine. (3) Decubital ulcer: Qualifiers: Pressure injury location: sacral region Pressure injury stage: unstageable Qualified Code(s): L89.150 - Pressure ulcer of sacral region, unstageable Code(s): L89.90 - Pressure ulcer of unspecified site, unspecified stage Status: Chronic Assessment and Plan: potential etiology of sepsis criteria (hypotension, tachycardia and leukocytosis) on antibiotic therapy wound nurses seeing and setting up to be on wound VAC (4) Hyponatremia: Code(s): E87.1 - Hypo-osmolality and hyponatremia Status: Acute Assessment and Plan: may be partly related to renal insufficiency along with cardiomyopathy follow trend as appears stable Minimize fluid intake (5) Anemia: Code(s): D64.9 - Anemia, unspecified Status: Acute Assessment and Plan: due to previous dialyis dependent RENETTA, possible new baseline CKD, and acute illness on Epogen 3x/week check anemia studies but not a candidate for IV venofer given acute infection hemoglobin is stable (6) Encephalopathy: Code(s): G93.40 - Encephalopathy, unspecified Status: Acute Assessment and Plan: has underling dementia seems at baseline if not better follow mentation Subjective Date/time seen: 10/23/20 11:09 Interval history: patient is alert he is conversive. Lying flat in bed. No chest pain or shortness of breath Exam Narrative: Exam Narrative: General: WD/WN male in NAD Heart: normal S1 and S2; no rub Lungs: clear Abdomen: soft, nontender, nondistended, positive bowel sounds Extremities: no cyanosis or clubbing; trace edema Skin: No acute rash Objective Data Vital Signs Vital Signs: Vital Signs - 24 hr 10/22/20 14:00 10/22/20 18:00 10/22/20 22:00 Temperature 37.5 C 36.7 C 36.3 C L Pulse Rate 93 71 102 H Respiratory Rate 17 19 20 Blood Pressure 118/66 122/61 145/72 H Pulse Oximetry 100 98 99 10/23/20 02:00 10/23/20 06:00 10/23/20 08:11 Temperature 37.0 C 36.9 C Pulse Rate 101 H 99 70 Respiratory Rate 20 20 Blood Pressure 104/60 103/47 L Pulse Oximetry 99 98 10/23/20 10:00 Temperature 36.9 C Pulse Rate 96 Respiratory Rate 18 Blood Pressure 102/55 L Pulse Oximetry 97 Intake/Output Intake/Output: Intake & Output 10/20/20 10/21/20 10/22/20 10/23/20 23:59 23:59 23:59 23:59 Intake Total 2370 2800 2270 1690 Output Total 3150 2150 2725 1100 Balance -780 650 -455 590 Meds/Results Medications: Active Medications Generic Name Dose Route Start Last Admin Trade Name Freq PRN Reason Stop Dose Admin Acetaminophen 650 mg 10/14/20 02:53 10/15/20 21:50 Acetaminophen 325 Mg Tablet PO 650 mg Q4H PRN Administration Mild Pain (1-3) Or Fever Hydrocodone Bitart/Acetaminophen 1 tab 10/18/20 07:59 10/23/20 05:01 Hydrocodone/Acetaminophen (*Crx) 10-325 Mg Tablet PO 1 tab Q6H PRN Administration Pain Rated 7-10 Apixaban 5 mg 10/14/20 09:00 10/22/20 10:06 Apixaban 5 Mg Tablet PO 5 mg Q12HR ANABEL Administration Aspirin 81 mg 10/14/20 08:00 10/23/20 08:10 Aspirin 81 Mg Chewable Tablet PO 81 mg DAILY@0800 ANABEL Administration Atorvastatin Calcium 40 mg 10/14/20 09:00 10/23/20 08:10 Atorvastatin 40 Mg Tablet PO 40 mg DAILY ANABEL Administration Epoetin Andrei-epbx 10,000 units
--- NOTE | 2020-10-23 12:22 | PC.NURSE ---
[employer] spoke with Stephania wound RN and made aware wound vac is not currently in place W-D dressing changed by midnight RN this AM.
--- NOTE | 2020-10-23 12:46 | WPDINFPN2 ---
Progress Note: A&P Assessment and Plan (1) Decubitus ulcer of sacral region, stage 4: Code(s): L89.154 - Pressure ulcer of sacral region, stage 4 Status: Acute Assessment and Plan: 1. Sacral decubitus ulcer with acute osteomyelitis. MRSA isolated on superficial swab. 2. CRF, no ongoing HD however. Permacath or equivalent in R IJ 3. Antibiotic associated diarrhea, C diff infection is unlikely, assay in process. 4. Mild leukocytosis, slightly better today REC (antibiotic # 11) AmpSulbactam # 2, through 11/11. Vanc #4, also through 11/11. PICC in place. No new dose adjustments Subjective Date/time seen: 10/23/20 12:46 Interval history: pain persists though under control with analgesics Exam Narrative: Exam Narrative: afebrile Const: General: no acute distress Resp: Effort & Inspection: normal respiratory effort Auscultation: clear to auscultation bilaterally Cardio: Rate: regular rate Rhythm: regular rhythm Heart sounds: no murmurs GI: Inspection: non-distended GI Palp: Yes Soft to palpation and No Tenderness to palpation present (GI) Skin: General skin exam: normal color and no rashes or lesions noted Objective Data Vital Signs Vital Signs: Vital Signs - 24 hr 10/22/20 14:00 10/22/20 18:00 10/22/20 22:00 Temperature 37.5 C 36.7 C 36.3 C L Pulse Rate 93 71 102 H Respiratory Rate 17 19 20 Blood Pressure 118/66 122/61 145/72 H Pulse Oximetry 100 98 99 10/23/20 02:00 10/23/20 06:00 10/23/20 08:11 Temperature 37.0 C 36.9 C Pulse Rate 101 H 99 70 Respiratory Rate 20 20 Blood Pressure 104/60 103/47 L Pulse Oximetry 99 98 10/23/20 10:00 Temperature 36.9 C Pulse Rate 96 Respiratory Rate 18 Blood Pressure 102/55 L Pulse Oximetry 97 Intake/Output Intake/Output: Intake & Output 10/20/20 10/21/20 10/22/20 10/23/20 23:59 23:59 23:59 23:59 Intake Total 2370 2800 2270 1690 Output Total 3150 2150 2725 1100 Balance -780 650 -919 590 Meds/Results Medications: Active Medications Generic Name Dose Route Start Last Admin Trade Name Freq PRN Reason Stop Dose Admin Acetaminophen 650 mg 10/14/20 02:53 10/15/20 21:50 Acetaminophen 325 Mg Tablet PO 650 mg Q4H PRN Administration Mild Pain (1-3) Or Fever Hydrocodone Bitart/Acetaminophen 1 tab 10/18/20 07:59 10/23/20 11:08 Hydrocodone/Acetaminophen (*Crx) 10-325 Mg Tablet PO 1 tab Q6H PRN Administration Pain Rated 7-10 Apixaban 5 mg 10/14/20 09:00 10/22/20 10:06 Apixaban 5 Mg Tablet PO 5 mg Q12HR ANABEL Administration Aspirin 81 mg 10/14/20 08:00 10/23/20 08:10 Aspirin 81 Mg Chewable Tablet PO 81 mg DAILY@0800 ANABEL Administration Atorvastatin Calcium 40 mg 10/14/20 09:00 10/23/20 08:10 Atorvastatin 40 Mg Tablet PO 40 mg DAILY ANABEL Administration Epoetin Andrei-epbx 10,000 units 10/15/20 09:00 10/22/20 10:06 Epoetin Andrei-Epbx 10,000 Units/Ml Vial SUB-Q 10,000 units MoWeFr@0900 ANABEL Administration Vancomycin HCl 1,500 mg in 500 mls @ 333.333 mls/hr 10/20/20 15:00 10/22/20 15:14 Vancomycin 1,500 Mg/D5w 500 Ml IVPB 333 mls/hr Q24H ANABEL Administration Ampicillin Sodium/Sulbactam Sodium 3 gm in 100 mls @ 200 mls/hr 10/22/20 14:00 10/23/20 05:31 Unasyn 3 Gm/Ns 100 Ml IVPB Infused Q8HR ANABEL Infusion Lidocaine 1 patch 10/15/20 14:00 10/23/20 08:12 Lidocaine 5% Patch TRANSDERM 1 patch DAILY ANABEL Administration Lisinopril 2.5 mg 10/14/20 09:00 10/23/20 08:12 Lisinopril 2.5 Mg Tablet PO 2.5 mg SuTuThSa@0900 ANABEL Administration Loperamide HCl 2 mg 10/21/20 11:13 10/23/20 05:00 Loperamide Hcl 2 Mg Capsule PO 2 mg Q4H PRN Administration Diarrhea Metoprolol Succinate 12.5 mg 10/14/20 09:00 10/23/20 08:11 Metoprolol Succinate Ext Rel 12.5 Mg Tabcr PO 12.5 mg QAM ANABEL Administration Morphine Sulfate 2 mg 10/15/20 13:34 10/20/20 16:47 Morphine Sulfate (*Crx) 2 Mg/Ml Inj IV PUSH 2 mg Q4H PRN Administra
--- NOTE | 2020-10-23 13:17 | PCNFU ---
Nutrition Follow-Up Complete: Increased protein/calorie needs related to significantly increased demands as evidenced by unhealed wounds, hemodialysis, weight loss. Goal: Patient to consume 75% of meals/supplements or greater. progressing towards goal. We will continue current goal. Pt current nutrition is Heart Healthy. Last recorded weight is 96.9 kg up from 80 kg on admit. Bowel Motility:+Bm reported 08/23. stools have been reported as loose. C-diff toxin has been sent. Labs Reviewed:Na 129,Hct 24.8.Hgb 7.9 Meds Noted:Riesel,Lipitor,Zosyn,Vancomycin. Additional Notes: Wounds: wound vac noted on sacrum. Patient had PICC placed. MRSA. Oral intake has been 25-75% of most meals. Diet supplements: Nepro BID providing an additional 425 kcals and 19 gms protein. Monitoring: labs, weight, meds, oral intake every 5 days.
--- NOTE | 2020-10-23 14:20 | PCOTNOTE ---
Attempted to see Patient for P.M. treatment session this afternoon. Patient declined to participate in any activities, and stated, not today.
[2020-10-23] MEDS: SOD HYPOCHLORITE 1/4 STRENGTH 473 ML 1 APPLIC TOPICAL (14:54)
[2020-10-23] MEDS: CENTRAL LINE FLUSH 20 ML IV PUSH (14:56)
--- NOTE | 2020-10-23 18:17 | PC.NURSE ---
On 10/23/20, the RN, Kami Sky, provided care and completed [facility] documentation on this patient. I have reviewed the RN's documentation and agree with the findings.
--- NOTE | 2020-10-23 18:20 | PM.IMPN ---
Progress Note: A&P Assessment and Plan (1) Decubitus ulcer of sacral region, stage 4: Code(s): L89.154 - Pressure ulcer of sacral region, stage 4 Status: Acute Assessment and Plan: Planning for wound vac (2) Heel ulcer: Code(s): L97.409 - Non-pressure chronic ulcer of unspecified heel and midfoot with unspecified severity Status: Acute Assessment and Plan: Local care. (3) Sepsis: Code(s): A41.9 - Sepsis, unspecified organism Status: Acute Assessment and Plan: Osteomyelitis ID following (4) Acute hypotension: Code(s): I95.9 - Hypotension, unspecified Status: Acute Assessment and Plan: Likely secondary to osteo. Resolved (5) Acute renal failure (ARF): Code(s): N17.9 - Acute kidney failure, unspecified Status: Acute Assessment and Plan: Likely ATN Bun/Cr stable Continue to monitor (6) Hyponatremia: Code(s): E87.1 - Hypo-osmolality and hyponatremia Status: Acute Assessment and Plan: Hypervolemic hyponatremia Patient at one point was hypernatremic with sodium upward 150 Nephrology following (7) Paroxysmal atrial fibrillation: Code(s): I48.0 - Paroxysmal atrial fibrillation Status: Acute Assessment and Plan: Rate controlled currently. (8) Parkinsons: Code(s): G20 - Parkinson's disease Status: Chronic Assessment and Plan: On no meds Subjective Date/time seen: 10/23/20 18:20 States that he feels OK. Review of Systems Review of Systems: Narrative: States that he has a large wound that it's being planned to place wound vac on. Constitutional: Comments: no fevers, no rigors, no chills. ENT: Comments: no nasal congestion. Cardiovascular: Comments: no chest pain, no pnd, no orthopnea. Respiratory: Comments: No sob, no cough, no sputum production. Gastrointestinal: Comments: no n/v/abdominal pain. Musculoskeletal: Comments: sacral wound. Integumentary/Breasts: Comments: wound. Neurologic: Comments: no sensory motor deficit. Exam Narrative: Exam Narrative: Lying in bed. Const: General: no acute distress, alert and awake Nutritional Appearance: average body habitus Orientation/consciousness: patient oriented x3 HENMT: Head: normocephalic Ears: hearing grossly normal bilaterally General nose exam: Normal external nose present Face and sinus: normal facial exam Eyes: Pupils: Equal, round and reactive pupils present EOM: EOMs intact bilaterally Neck: Neck: no JVD Lymphatic: no lymphadenopathy noted Resp: Auscultation: clear to auscultation bilaterally Cardio: Jugular venous distension: no JVD Rate: regular rate Rhythm: regular rhythm GI: GI Palp: Yes Soft to palpation and Yes No hepatosplenomegaly present Skin: Wounds: no wounds (Sacral area) Neuro: General: patient oriented x3 and CN's II-XI intact bilaterally Cranial nerves: Yes Equal, round and reactive pupils present Cognition (Neuro): normal cognition Speech: normal speech Gait exam (Neuro): Unable to assess gait Motor exam (neuro): 5/5 motor strength present throughout Extrem: General: no pedal edema and other (Sacral wound.) Objective Data Vital Signs Vital Signs: Vital Signs - 24 hr 10/22/20 22:00 10/23/20 02:00 10/23/20 06:00 Temperature 97.4 F L 98.6 F 98.4 F Pulse Rate 102 H 101 H 99 Respiratory Rate 20 20 20 Blood Pressure 145/72 H 104/60 103/47 L Pulse Oximetry 99 99 98 10/23/20 08:11 10/23/20 10:00 10/23/20 14:00 Temperature 98.5 F 97.8 F Pulse Rate 70 96 94 Respiratory Rate 18 18 Blood Pressure 102/55 L 99/50 L Pulse Oximetry 97 97 10/23/20 17:35 Temperature Pulse Rate Respiratory Rate Blood Pressure 100/78 Pulse Oximetry Intake/Output Intake/Output: Intake & Output 10/20/20 10/21/20 10/22/20 10/23/20 23:59 23:59 23:59 23:59 Intake Total 2370 2800 2770 2770 Output Total 3150 2150 2725 1100 Balance -780 882 00 1170
[2020-10-23] MEDS: rOPINIRole HCL 1 MG TABLET 2 MG PO (21:22)
[2020-10-24] VITALS (7 sets, daily range): BP systolic 102–118; BP diastolic 50–62; PULSE 70–97; RESP 16–22; TEMP 36.3–36.6; O2SAT 98–100
[2020-10-24] MEDS: AMPICILLIN SULB 3 GM/NS 100 ML 3 GM/100 ML VIAL IVPB ×3 (05:47→20:28)
[2020-10-24] MEDS: CENTRAL LINE FLUSH 10 ML IV PUSH ×3 (05:47→20:30)
[2020-10-24] MEDS: HYDROcodone/acetaminophen (*CRX) 10-325 MG TABLET 1 TAB PO ×3 (05:48→20:27)
--- NOTE | 2020-10-24 07:39 | P.PNNP_ITS ---
Progress Note: A&P Assessment and Plan (1) Acute renal failure (ARF): Code(s): N17.9 - Acute kidney failure, unspecified Status: Acute Assessment and Plan: * thought to be secondary to ATN from previous infection and hemodynamic instability * urine output is doing well * Creatinine has stabilized. * Dr. Mercer has seen for pulling his dialysis catheter out. * He is off his Eliquis. Last dose was on October 22 (2) Acute hypotension: Code(s): I95.9 - Hypotension, unspecified Status: Acute Assessment and Plan: * Blood pressure has been doing well with a systolic between 99 and 120 (3) Decubital ulcer: Qualifiers: Pressure injury location: sacral region Pressure injury stage: unstageable Qualified Code(s): L89.150 - Pressure ulcer of sacral region, unstageable Code(s): L89.90 - Pressure ulcer of unspecified site, unspecified stage Status: Chronic Assessment and Plan: * potential etiology of sepsis criteria (hypotension, tachycardia and leukocytosis) * on antibiotic therapy * wound nurses seeing and setting up to be on wound VAC (4) Hyponatremia: Code(s): E87.1 - Hypo-osmolality and hyponatremia Status: Acute Assessment and Plan: * may be partly related to renal insufficiency along with cardiomyopathy * follow trend as appears stable * Minimize fluid intake (5) Anemia: Code(s): D64.9 - Anemia, unspecified Status: Acute Assessment and Plan: * due to previous dialyis dependent RENETTA, possible new baseline CKD, and acute illness * on Epogen 3x/week * check anemia studies but not a candidate for IV venofer given acute infection * hemoglobin is stable (6) Encephalopathy: Code(s): G93.40 - Encephalopathy, unspecified Status: Acute Assessment and Plan: * has underling dementia * seems at baseline if not better * follow mentation Subjective Date/time seen: 10/24/20 07:39 Interval history: patient is alert and comfortable. Lying flat in bed. Still has some pain in the decubitus areas. Exam Narrative: Exam Narrative: General: WD/WN male in NAD Heart: normal S1 and S2; no rub Lungs: clear bilaterally Abdomen: Bowel sounds positive nontender Extremities: no cyanosis or clubbing; trace edema Skin: No acute rash or subcu nodules Objective Data Vital Signs Vital Signs: Vital Signs - 24 hr 10/23/20 08:11 10/23/20 10:00 10/23/20 14:00 Temperature 36.9 C 36.6 C Pulse Rate 70 96 94 Respiratory Rate 18 18 Blood Pressure 102/55 L 99/50 L Pulse Oximetry 97 97 10/23/20 17:35 10/23/20 18:00 10/23/20 20:00 Temperature 37.0 C 36.3 C L Pulse Rate 91 90 Respiratory Rate 18 20 Blood Pressure 100/78 109/54 L 100/59 L Pulse Oximetry 99 99 10/23/20 23:59 10/24/20 04:00 Temperature 36.5 C 36.3 C L Pulse Rate 88 88 Respiratory Rate 20 20 Blood Pressure 101/50 L 118/62 Pulse Oximetry 100 100 Intake/Output Intake/Output: Intake & Output 10/21/20 10/22/20 10/23/20 10/24/20 23:59 23:59 23:59 23:59 Intake Total 2800 2770 3650 220 Output Total 2150 2725 1850 900 Balance 687 37 0031 -680 Meds/Resul
--- NOTE | 2020-10-24 07:39 | PM.PNNEP ---
Progress Note: A&P Assessment and Plan (1) Acute renal failure (ARF): Code(s): N17.9 - Acute kidney failure, unspecified Status: Acute Assessment and Plan: thought to be secondary to ATN from previous infection and hemodynamic instability urine output is doing well Creatinine has stabilized. Dr. Mercer has seen for pulling his dialysis catheter out. He is off his Eliquis. Last dose was on October 22 (2) Acute hypotension: Code(s): I95.9 - Hypotension, unspecified Status: Acute Assessment and Plan: Blood pressure has been doing well with a systolic between 99 and 120 (3) Decubital ulcer: Qualifiers: Pressure injury location: sacral region Pressure injury stage: unstageable Qualified Code(s): L89.150 - Pressure ulcer of sacral region, unstageable Code(s): L89.90 - Pressure ulcer of unspecified site, unspecified stage Status: Chronic Assessment and Plan: potential etiology of sepsis criteria (hypotension, tachycardia and leukocytosis) on antibiotic therapy wound nurses seeing and setting up to be on wound VAC (4) Hyponatremia: Code(s): E87.1 - Hypo-osmolality and hyponatremia Status: Acute Assessment and Plan: may be partly related to renal insufficiency along with cardiomyopathy follow trend as appears stable Minimize fluid intake (5) Anemia: Code(s): D64.9 - Anemia, unspecified Status: Acute Assessment and Plan: due to previous dialyis dependent RENETTA, possible new baseline CKD, and acute illness on Epogen 3x/week check anemia studies but not a candidate for IV venofer given acute infection hemoglobin is stable (6) Encephalopathy: Code(s): G93.40 - Encephalopathy, unspecified Status: Acute Assessment and Plan: has underling dementia seems at baseline if not better follow mentation Subjective Date/time seen: 10/24/20 07:39 Interval history: patient is alert and comfortable. Lying flat in bed. Still has some pain in the decubitus areas. Exam Narrative: Exam Narrative: General: WD/WN male in NAD Heart: normal S1 and S2; no rub Lungs: clear bilaterally Abdomen: Bowel sounds positive nontender Extremities: no cyanosis or clubbing; trace edema Skin: No acute rash or subcu nodules Objective Data Vital Signs Vital Signs: Vital Signs - 24 hr 10/23/20 08:11 10/23/20 10:00 10/23/20 14:00 Temperature 36.9 C 36.6 C Pulse Rate 70 96 94 Respiratory Rate 18 18 Blood Pressure 102/55 L 99/50 L Pulse Oximetry 97 97 10/23/20 17:35 10/23/20 18:00 10/23/20 20:00 Temperature 37.0 C 36.3 C L Pulse Rate 91 90 Respiratory Rate 18 20 Blood Pressure 100/78 109/54 L 100/59 L Pulse Oximetry 99 99 10/23/20 23:59 10/24/20 04:00 Temperature 36.5 C 36.3 C L Pulse Rate 88 88 Respiratory Rate 20 20 Blood Pressure 101/50 L 118/62 Pulse Oximetry 100 100 Intake/Output Intake/Output: Intake & Output 10/21/20 10/22/20 10/23/20 10/24/20 23:59 23:59 23:59 23:59 Intake Total 2800 2770 3650 220 Output Total 2150 2725 1850 900 Balance 058 09 7419 -680 Meds/Results Medications: Active Medications Generic Name Dose Route Start Last Admin Trade Name Freq PRN Reason Stop Dose Admin Acetaminophen 650 mg 10/14/20 02:53 10/15/20 21:50 Acetaminophen 325 Mg Tablet PO 650 mg Q4H PRN Administration Mild Pain (1-3) Or Fever Hydrocodone Bitart/Acetaminophen 1 tab 10/18/20 07:59 10/24/20 05:48 Hydrocodone/Acetaminophen (*Crx) 10-325 Mg Tablet PO 1 tab Q6H PRN Administration Pain Rated 7-10 Apixaban 5 mg 10/14/20 09:00 10/22/20 10:06 Apixaban 5 Mg Tablet PO 5 mg Q12HR ANABEL Administration Aspirin 81 mg 10/14/20 08:00 10/23/20 08:10 Aspirin 81 Mg Chewable Tablet PO 81 mg DAILY@0800 ANABEL Administration Atorvastatin Calcium 40 mg 10/14/20 09:00 10/23/20 08:10 Atorvastatin 40
[2020-10-24] MEDS: METOPROLOL SUCCINATE EXT REL 12.5 MG TABCR PO (08:43)
[2020-10-24] MEDS: ATORVASTATIN 40 MG TABLET PO (08:43)
[2020-10-24] MEDS: ASPIRIN 81 MG CHEWABLE TABLET PO (08:43)
[2020-10-24] MEDS: LIDOCAINE 5% PATCH 1 PATCH TRANSDERM (08:44)
[2020-10-24] MEDS: SOD HYPOCHLORITE 1/4 STRENGTH 473 ML 1 APPLIC TOPICAL ×2 (08:51→20:37)
[2020-10-24] MEDS: EPOETIN ALFA-EPBX 10,000 UNITS/ML VIAL 10000 UNITS SUB-Q (08:51)
[2020-10-24] MEDS: LOPERAMIDE HCL 2 MG CAPSULE PO ×2 (09:06→20:36)
--- NOTE | 2020-10-24 10:53 | WPDINFPN2 ---
Progress Note: A&P Assessment and Plan (1) Decubitus ulcer of sacral region, stage 4: Code(s): L89.154 - Pressure ulcer of sacral region, stage 4 Status: Acute Assessment and Plan: 1. Sacral decubitus ulcer with acute osteomyelitis. MRSA isolated on superficial swab. 2. CRF, no ongoing HD however. 3. Antibiotic associated diarrhea, C diff infection is unlikely, assay in process. 4. Mild leukocytosis REC (antibiotic # 12) AmpSulbactam # 3, through 11/11. Vanc #5, also through 11/11. Trough appropriate. PICC in place. No new dose adjustments Subjective Date/time seen: 10/24/20 10:53 Interval history: some LLQ discomfort loose BMs Exam Narrative: Exam Narrative: afebrile Const: General: no acute distress Resp: Effort & Inspection: normal respiratory effort Auscultation: clear to auscultation bilaterally Cardio: Rate: regular rate Rhythm: regular rhythm Heart sounds: no murmurs GI: Inspection: non-distended GI Palp: Yes Soft to palpation, Yes Tenderness to palpation present (GI) and No Guarding due to palpation present (GI) Percussion: Yes normal to percussion Auscultation: normal bowel sounds Skin: General skin exam: normal color and no rashes or lesions noted Objective Data Vital Signs Vital Signs: Vital Signs - 24 hr 10/23/20 14:00 10/23/20 17:35 10/23/20 18:00 Temperature 36.6 C 37.0 C Pulse Rate 94 91 Respiratory Rate 18 18 Blood Pressure 99/50 L 100/78 109/54 L Pulse Oximetry 97 99 10/23/20 20:00 10/23/20 23:59 10/24/20 04:00 Temperature 36.3 C L 36.5 C 36.3 C L Pulse Rate 90 88 88 Respiratory Rate 20 20 20 Blood Pressure 100/59 L 101/50 L 118/62 Pulse Oximetry 99 100 100 10/24/20 08:43 Temperature Pulse Rate 70 Respiratory Rate Blood Pressure Pulse Oximetry Intake/Output Intake/Output: Intake & Output 10/21/20 10/22/20 10/23/20 10/24/20 23:59 23:59 23:59 23:59 Intake Total 2800 2770 3650 220 Output Total 2150 2725 1850 900 Balance 470 39 3194 -680 Meds/Results Medications: Active Medications Generic Name Dose Route Start Last Admin Trade Name Freq PRN Reason Stop Dose Admin Acetaminophen 650 mg 10/14/20 02:53 10/15/20 21:50 Acetaminophen 325 Mg Tablet PO 650 mg Q4H PRN Administration Mild Pain (1-3) Or Fever Hydrocodone Bitart/Acetaminophen 1 tab 10/18/20 07:59 10/24/20 05:48 Hydrocodone/Acetaminophen (*Crx) 10-325 Mg Tablet PO 1 tab Q6H PRN Administration Pain Rated 7-10 Apixaban 5 mg 10/14/20 09:00 10/22/20 10:06 Apixaban 5 Mg Tablet PO 5 mg Q12HR ANABEL Administration Aspirin 81 mg 10/14/20 08:00 10/24/20 08:43 Aspirin 81 Mg Chewable Tablet PO 81 mg DAILY@0800 ANABEL Administration Atorvastatin Calcium 40 mg 10/14/20 09:00 10/24/20 08:43 Atorvastatin 40 Mg Tablet PO 40 mg DAILY ANABEL Administration Epoetin Andrei-epbx 10,000 units 10/15/20 09:00 10/24/20 08:51 Epoetin Andrei-Epbx 10,000 Units/Ml Vial SUB-Q 10,000 units MoWeFr@0900 ANABEL Administration Vancomycin HCl 1,500 mg in 500 mls @ 333.333 mls/hr 10/20/20 15:00 10/23/20 18:13 Vancomycin 1,500 Mg/D5w 500 Ml IVPB Infused Q24H ANABEL Infusion Ampicillin Sodium/Sulbactam Sodium 3 gm in 100 mls @ 200 mls/hr 10/22/20 14:00 10/24/20 06:17 Unasyn 3 Gm/Ns 100 Ml IVPB Infused Q8HR ANABEL Infusion Lidocaine 1 patch 10/15/20 14:00 10/24/20 08:44 Lidocaine 5% Patch TRANSDERM 1 patch DAILY ANABEL Administration Lisinopril 2.5 mg 10/14/20 09:00 10/23/20 08:12 Lisinopril 2.5 Mg Tablet PO 2.5 mg SuTuThSa@0900 ANABEL Administration Loperamide HCl 2 mg 10/21/20 11:13 10/24/20 09:06 Loperamide Hcl 2 Mg Capsule PO 2 mg Q4H PRN Administration Diarrhea Metoprolol Succinate 12.5 mg 10/14/20 09:00 10/24/20 08:43 Metoprolol Succinate Ext Rel 12.5 Mg Tabcr PO 12.5 mg QAM ANABEL Administration Morphine Sulfate 2 mg 10/15/20 13:34 10/20/20 16:47 Morphine Sulfate (*Crx) 2 Mg/Ml Inj IV
--- NOTE | 2020-10-24 15:55 | PC.NURSE ---
Addendum entered by Kami Sky RN 10/24/20 16:13: Called and spoke with Dr. Velazquez regarding retesting for c-diff per Dr. Velazquez do not collect new c-diff specimen at this time. Original Note: Cirilo from Laboratory called and reported the C-diff specimen was [facility] and the specimen is unable to be found, another specimen will need to be collected. Will notify Dr. Velazquez
--- NOTE | 2020-10-24 18:59 | PM.IMPN ---
Progress Note: A&P Assessment and Plan (1) Anemia: Code(s): D64.9 - Anemia, unspecified Status: Acute Assessment and Plan: Likely secondary to chronic illness Continue to monitor (2) Hyponatremia: Code(s): E87.1 - Hypo-osmolality and hyponatremia Status: Acute Assessment and Plan: Likely hypervolemic hyponatremia (3) Decubitus ulcer of sacral region, stage 4: Code(s): L89.154 - Pressure ulcer of sacral region, stage 4 Status: Acute Assessment and Plan: S/p debridement On iv antibiotics. (4) Heel ulcer: Code(s): L97.409 - Non-pressure chronic ulcer of unspecified heel and midfoot with unspecified severity Status: Acute Assessment and Plan: Local care (5) Acute renal failure (ARF): Code(s): N17.9 - Acute kidney failure, unspecified Status: Acute Assessment and Plan: Continue to monitor Seems to be stable at this point. Nephrology following. Subjective Date/time seen: 10/24/20 18:59 Patient states that he is fine. Review of Systems Review of Systems: Narrative: Patient is circumstantial but denies any complains currently. Exam Narrative: Exam Narrative: Lying in bed. Const: General: comfortable and no acute distress Nutritional Appearance: well nourished Orientation/consciousness: patient oriented x3 HENMT: Head: normal to inspection and normocephalic Face and sinus: normal facial exam Eyes: Pupils: Equal, round and reactive pupils present EOM: EOMs intact bilaterally Neck: Neck: no lymphadenopathy, supple and no JVD Resp: Effort & Inspection: able to speak in complete sentences Auscultation: clear to auscultation bilaterally Cardio: Rate: regular rate Rhythm: regular rhythm GI: GI Palp: Yes Soft to palpation and Yes No hepatosplenomegaly present Skin: Wounds: wounds noted (Sacral area.) Neuro: General: patient oriented x3 Cranial nerves: Yes CN's II-XII intact bilaterally and Yes Equal, round and reactive pupils present Cognition (Neuro): normal cognition Speech: normal speech Motor exam (neuro): 5/5 motor strength present throughout Extrem: General: no pedal edema Objective Data Vital Signs Vital Signs: Vital Signs - 24 hr 10/23/20 20:00 10/23/20 23:59 10/24/20 04:00 Temperature 97.4 F L 97.7 F 97.3 F L Pulse Rate 90 88 88 Respiratory Rate 20 20 20 Blood Pressure 100/59 L 101/50 L 118/62 Pulse Oximetry 99 100 100 10/24/20 08:00 10/24/20 08:43 10/24/20 10:00 Temperature 97.5 F L 97.5 F L Pulse Rate 80 70 80 Respiratory Rate 16 16 Blood Pressure 112/54 L 112/54 L Pulse Oximetry 98 98 10/24/20 14:00 Temperature 97.8 F Pulse Rate 93 Respiratory Rate 16 Blood Pressure 106/50 L Pulse Oximetry 100 Intake/Output Intake/Output: Intake & Output 10/21/20 10/22/20 10/23/20 10/24/20 23:59 23:59 23:59 23:59 Intake Total 2800 2770 3650 1540 Output Total 2150 2725 1850 1950 Balance 355 83 9017 -410 Meds/Results Medications: Active Medications Generic Name Dose Route Start Last Admin Trade Name Freq PRN Reason Stop Dose Admin Acetaminophen 650 mg 10/14/20 02:53 10/15/20 21:50 Acetaminophen 325 Mg Tablet PO 650 mg Q4H PRN Administration Mild Pain (1-3) Or Fever Hydrocodone Bitart/Acetaminophen 1 tab 10/18/20 07:59 10/24/20 14:19 Hydrocodone/Acetaminophen (*Crx) 10-325 Mg Tablet PO 1 tab Q6H PRN Administration Pain Rated 7-10 Apixaban 5 mg 10/14/20 09:00 10/22/20 10:06 Apixaban 5 Mg Tablet PO 5 mg Q12HR ANABEL Administration Aspirin 81 mg 10/14/20 08:00 10/24/20 08:43 Aspirin 81 Mg Chewable Tablet PO 81 mg DAILY@0800 [facility] Administration Atorvastatin Calcium 40 mg 10/14/20 09:00 10/24/20 08:43 Atorvastatin 40 Mg Tablet PO 40 mg DAILY [facility] Administration Epoetin Andrei-epbx 10,000 units 10/15/20 09:00 10/24/20 08:51 Epoetin Andrei-Epbx 10,000 Units/Ml Vial SUB-Q 10,000 units MoWeFr@0900 [facility] Adm
[2020-10-24] MEDS: rOPINIRole HCL 1 MG TABLET 2 MG PO (20:29)
[2020-10-25] VITALS: BP 120/65; PULSE 82; RESP 20; TEMP 36.1; O2SAT 99
[2020-10-25] MEDS: HYDROcodone/acetaminophen (*CRX) 10-325 MG TABLET 1 TAB PO ×3 (02:30→14:05)
[2020-10-25 04:00] VITALS: BP 118/65; PULSE 87; RESP 22; TEMP 36.5; O2SAT 100
[2020-10-25] MEDS: CENTRAL LINE FLUSH 10 ML IV PUSH ×2 (04:46→14:04)
[2020-10-25] MEDS: AMPICILLIN SULB 3 GM/NS 100 ML 3 GM/100 ML VIAL IVPB ×2 (04:46→14:04)
[2020-10-25 05:05] LABS: Estimated CRCL calculation 44 ml/min; Estimated Glomerular Filt Rate 49
[2020-10-25] MEDS: ACETAMINOPHEN 325 MG TABLET 650 MG PO (07:01)
[2020-10-25 08:46] VITALS: PULSE 76
[2020-10-25] MEDS: ATORVASTATIN 40 MG TABLET PO (08:46)
[2020-10-25] MEDS: METOPROLOL SUCCINATE EXT REL 12.5 MG TABCR PO (08:46)
[2020-10-25] MEDS: ASPIRIN 81 MG CHEWABLE TABLET PO (08:46)
[2020-10-25] MEDS: LIDOCAINE 5% PATCH 1 PATCH TRANSDERM (08:47)
[2020-10-25] MEDS: lisinopriL 2.5 MG TABLET PO (08:47)
[2020-10-25] MEDS: SOD HYPOCHLORITE 1/4 STRENGTH 473 ML 1 APPLIC TOPICAL (08:48)
--- NOTE | 2020-10-25 09:35 | PCPTNOTE ---
Patient refused treatment this session due to patient stating Not right now. I just finished breakfast. I feel full and need to defecate. Therapist explained treatment plan of functional mobility tasks. Patient stated I will cry if I sit up and I'll cry more if I sit in the chair. RSpring ortez.
[2020-10-25] MEDS: MORPHINE SULFATE (*CRX) 2 MG/ML INJ IV PUSH (11:21)
--- NOTE | 2020-10-25 11:35 | P.OP_ITS ---
Procedure Note - Detailed Date of procedure: 10/25/20 Pre-op diagnosis: Acute/chronic kidney failure Post-op diagnosis: same Procedure performed: Removal of right internal jugular tunnel dialysis catheter Description of procedure: * procedure, risks, benefits, and alternatives were discussed with the patient. Written consent was obtained and placed in chart prior to procedure. Patient was placed supine in hospital bed with head of the bed slightly elevated. The tunnel dialysis catheter was prepped and draped in sterile fashion using Betadine prep. The sutures were cut free at the skin the cuff on the catheter was palpated underneath the skin. The cuff was gently manipulated to free it up from surrounding scar tissue. Once the cuff was freed up, this freed up the entire catheter. It was able to be gently removed through the exit site on the right chest. Pressure was applied at the base of the neck at the insertion site for 5 minutes and blood loss appeared minimal. A 4 x 4 gauze and Medipore tape were then applied at the exit site on the chest. Patient was then sat up in bed. Anesthesia: none Surgeon: Alvaro Mercer DO Estimated blood loss (mL): 2 Complications: No immediate complications Condition: stable Disposition: no change Findings: Right internal jugular tunnel dialysis catheter was removed per Nephrology's request. Patient had a previous need for hemodialysis with acute on chronic renal failure. He is no longer requiring dialysis. The tunneled catheter was carefully freed up and gently removed. I did not have to make a 2nd incision over the cuff as it did appear to carefully come free with gentle retraction. Patient tolerated procedure well and there was no bleeding noted once the catheter was removed. Will resume Eliquis starting this evening.
--- NOTE | 2020-10-25 11:36 | PM.DS ---
DS: Admitting Diagnosis Admitting Diagnosis Admitting Diagnosis: (1) Sepsis: Code(s): A41.9 - Sepsis, unspecified organism Status: Acute Assessment and Plan: Patient meets criteria for sepsis with hypotension, tachycardia and leukocytosis in the setting of possible pneumonia versus UTI verses decubitus ulcer infection. Patient was started on IV antibiotics with Zosyn Blood cultures, wound cultures, urine cultures are pending. Continue monitor vital signs and leukocytosis. (2) Acute hypotension: Code(s): I95.9 - Hypotension, unspecified Status: Acute Assessment and Plan: Most likely secondary to dehydration secondary to sepsis verses lack of appetite and eating. He was given IV fluids in the ER with improvement of his blood pressure. Blood pressure this morning was normal then throughout the day and has slowly decreased to 90 over 40s. He will be given a 500 cc bolus of normal saline as recommended by Dr. Lee paver. He will then be placed on normal saline 100 cc/hour for hydration. Continue monitoring BP (3) Decubital ulcer: Qualifiers: Pressure injury location: sacral region Pressure injury stage: unstageable Qualified Code(s): L89.150 - Pressure ulcer of sacral region, unstageable Code(s): L89.90 - Pressure ulcer of unspecified site, unspecified stage Status: Chronic Assessment and Plan: Very large stage IV decubitus ulcer. Suspicious for possible infection due to follow odor. IV antibiotics have been started on the patient Wound culture was taken Will have wound nurse evaluated the patient the morning for further evaluation Last visit he did have surgery evaluate him to see if he needed debridement and he did not at that time. Continue monitoring (4) Near syncope: Code(s): R55 - Syncope and collapse Status: Acute Assessment and Plan: Most likely secondary to hypotension, dehydration as well as infection. Improved with IV fluids (5) Acute renal failure (ARF): Code(s): N17.9 - Acute kidney failure, unspecified Status: Acute Assessment and Plan: Last admission patient had a dialysis catheter placed and has been receiving dialysis. Currently on admission his creatinine was 2.[address] Lee the paver states is more elevated than it has been. Currently has AKF most likely due to infection versus dehydration. Nephrology is ordering a 24 hour urine creatinine Hold on dialysis at this time Continue monitoring renal function and Nephrology's input is greatly appreciated. (6) CAD (coronary artery disease): Code(s): I25.10 - Atherosclerotic heart disease of [place] coronary artery without angina pectoris Status: Acute Assessment and Plan: Denies any chest pain at this time. Continue aspirin at home medications. Continue monitoring. (7) Cardiomyopathy: Code(s): I42.9 - Cardiomyopathy, unspecified Status: Acute Assessment and Plan: Last admission found to have systolic EF of 20-25%. Will continue monitoring fluid status to ensure we do not fluid overload him due to his dehydration. Do not feel cardiology needs to be on the case at this time but if he continues to have hypotension or worsening issues may need to consult them. (8) Paroxysmal atrial fibrillation: Code(s): I48.0 - Paroxysmal atrial fibrillation Status: Acute Assessment and Plan: Telemetry shows atrial fibrillation that is intermittently tachycardic in the 100s. Continue Eliquis at this time. DS: Discharge Diagnosis Discharge Diagno
--- NOTE | 2020-10-25 13:32 | PCPTNOTE ---
Patient refused treatment this session due to patient stating he is in pain and wanted to remain flat in bed. Therapist encouraged and educated patient on importance of therapy. Patient continued to refuse. R.N informed.
--- NOTE | 2020-10-26 07:25 | PC.NURSE ---
Patient having loose stool on Thursday10/21/[address] Singh for orders to collect a stool sample for C. Diff assay.
== END 2020-10-25 14:30 | DRG 515 ==
LOC: ANHED 17:18 → ANHIMU 18:17 → ANH2MED 10-18 10:58 → ANHIMU 10-26 13:27
PROVIDERS: Family Medicine; Internal Medicine; Internal Medicine Nephrology; Physician Assistant; Surgery; Admitting Provider Family Medicine; Emergency Provider Emergency Medicine; PCP Internal Medicine; Visit Provider Internal Medicine
PROC: 0QB10ZZ Excision of Sacrum, Open Approach (ICD-10-PCS; principal; 2020-10-16 15:30)
DX: M46.28 Osteomyelitis of vertebra, sacral and sacrococcygeal region; L89.154 Pressure ulcer of sacral region, stage 4; N17.9 Acute kidney failure, unspecified; I42.9 Cardiomyopathy, unspecified; L97.419 Non-pressure chronic ulcer of right heel and midfoot with unspecified severity; G93.40 Encephalopathy, unspecified; E87.1 Hypo-osmolality and hyponatremia; K52.1 Toxic gastroenteritis and colitis; T36.95XA Adverse effect of unspecified systemic antibiotic, initial encounter; B95.62 Methicillin resistant Staphylococcus aureus infection as the cause of diseases classified elsewhere; I95.9 Hypotension, unspecified; R55 Syncope and collapse; I12.9 Hypertensive chronic kidney disease with stage 1 through stage 4 chronic kidney disease, or unspecified chronic kidney disease; N18.30 Chronic kidney disease, stage 3 unspecified; D63.8 Anemia in other chronic diseases classified elsewhere; I25.10 Atherosclerotic heart disease of native coronary artery without angina pectoris; I48.0 Paroxysmal atrial fibrillation; E86.0 Dehydration; G20 Parkinson's disease; F02.80 Dementia in other diseases classified elsewhere, unspecified severity, without behavioral disturbance, psychotic disturbance, mood disturbance, and anxiety; F32.9 Major depressive disorder, single episode, unspecified; F41.9 Anxiety disorder, unspecified; H35.30 Unspecified macular degeneration; E78.5 Hyperlipidemia, unspecified; I25.2 Old myocardial infarction; Z28.21 Immunization not carried out because of patient refusal; Z86.718 Personal history of other venous thrombosis and embolism; Z79.01 Long term (current) use of anticoagulants; Z79.82 Long term (current) use of aspirin; Z85.820 Personal history of malignant melanoma of skin; Z86.12 Personal history of poliomyelitis; Z86.16 Personal history of COVID-19; Z87.19 Personal history of other diseases of the digestive system; Z87.891 Personal history of nicotine dependence; Z95.5 Presence of coronary angioplasty implant and graft; Z97.8 Presence of other specified devices
CPT/HCPCS: 36415; 36430; 36569; 70450; 71045; 80048; 80069; 80202; 81001; 81050; 82274; 82565; 82570; 82728; 83540; 83550; 83605; 83735; 84484; 85014; 85018; 85025; 85610; 85730; 86140; 86850; 86900; 86901; 86923; 87040; 87070; 87086; 87147; 87186; 87205; 87324; 88304; 88311; 93005; 96361; 96365; 96367; 97110; 97162; 97166; 97530; 97535; 99285; A9270; C1751; G0378; J0295; J0696; J2270; J2405; J2543; J2704; J3010; J3370; J3475; J7030; J7040; J7050; P9016; Q5106

== ENCOUNTER 2020-11-15 05:39 | Inpatient (IN) | payer MEDICARE, SELFPAY ==
[2020-11-15] VITALS (8 sets, daily range): BP systolic 95–134; BP diastolic 49–71; PULSE 96–105; RESP 18–23; TEMP 36.2–37.1; O2SAT 95–100; BMI 36.8
--- NOTE | ~2020-11-15 | XR_ITS ---
XR chest 1V portable DATE: 11/17/2020 10:57 INDICATION: Congestive heart failure. Coronary artery disease. Hypertension. Myocardial infarction. S ANDREI. TECHNIQUE: Portable upright AP chest on November 17, 2020 at 1051 COMPARISON: November 15, 2020 portable AP chest at 0618 hours On 08/27/2020 portable AP chest FINDINGS: There is chronic elevation of the right leaf of the diaphragm since 08/27/2020. There is mi ld atelectasis at the lung bases, primarily on the right. Heart size appears borderline, not optimally evaluated AP projection because of magnification. There is aortic calcification. No pulmonary vascular congestion. No apparent pleural effusion. Right upper extremity PIC catheter tip near superior cavoatrial junction IMPRESSION: Chronic elevation right diaphragm and mild basilar atelectasis Right upper extremity PIC catheter tip near superior cavoatrial junction Reviewed, dictated and finalized at location A. OGRAPHY SUPERVISOR
--- NOTE | ~2020-11-15 | US_ITS ---
EXAMINATION: US venous doppler [facility] DATE: 11/16/2020 09:09 INDICATION: Lower limb swelling TECHNIQUE: Jacob scale images without and with compression and Doppler images of the bilateral lower e xtremity veins were obtained. COMPARISON: 08/13/2020 FINDINGS: The right common femoral vein, profunda femoral vein, femoral vein, popliteal vein, peroneal trunk, p osterior tibial veins, and greater saphenous vein are patent. The left common femoral vein, profunda femoral vein, femoral vein, popliteal vein, peroneal trunk, po sterior tibial veins, and greater saphenous vein are patent. IMPRESSION: 1. Patent bilateral lower extremity veins. No evidence of deep venous thrombosis. Reviewed, dictated and finalized at location A. RESS MAN IMPRESSION: 1. Patent bilateral lower extremity veins. No evidence of deep venous thrombosi s.
--- NOTE | ~2020-11-15 | US_ITS ---
EXAMINATION: US venous doppler [facility] DATE: 11/21/2020 12:44 INDICATION: Upper limb swelling TECHNIQUE: Grayscale images without and with compression and Doppler images of the bilateral upper ex tremity veins were obtained. COMPARISON: None. FINDINGS: The right internal jugular vein, subclavian vein, axillary vein, brachial vein, basilic vein, cephali c vein, radial vein, and ulnar vein are patent. Subtle linear intraluminal peripheral inserted centra l venous catheter seen in the right basilic and subclavian veins. The left internal jugular vein, subclavian vein, axillary vein, brachial vein, basilic vein, cephalic vein, radial vein, and ulnar vein are patent. IMPRESSION: 1. Patent bilateral upper extremity veins. No evidence of venous thrombosis. 2. Right upper extremity peripherally inserted central venous catheter is seen within the right basil ic and subclavian veins. Reviewed, dictated and finalized at location A. MANAGER IMPRESSION: 1. Patent bilateral upper extremity veins. No evidence of venous thrombosis. 2. Right upper extremity peripherally inserted central venous catheter is seen within the right basilic and subclavian veins.
--- NOTE | ~2020-11-15 | XR_ITS ---
EXAMINATION: XR chest 1V portable INDICATION: Pneumonia, shortness of breath TECHNIQUE: Portable AP chest at 0538 hours COMPARISON: 11/17/2020 FINDINGS: A right upper extremity PICC ends with its tip at the superior cavoatrial junction. There i s mild elevation of the right hemidiaphragm. There are mild airspace opacities of the mid and lower l pato zones, right greater than left. No pleural effusion or pneumothorax is identified. The cardiomedi astinal silhouette is normal. IMPRESSION: 1. Airspace opacities of the mid and lower lung zones, consistent with atelectasis versus pneumonia. Reviewed, dictated and finalized at location A. NDER TENDER IMPRESSION: 1. Airspace opacities of the mid and lower lung zones, consistent with atelecta sis versus pneumonia.
--- NOTE | ~2020-11-15 | CT_ITS ---
EXAMINATION: CT brain wo con INDICATION: Altered mental status COMPARISON: 10/13/2020 TECHNIQUE: Standard unenhanced head CT. The dose-length product (DLP) was 681.00 mGy-cm. The mA was a djusted according to patient size. Iterative reconstruction technique was employed. FINDINGS: There is no acute intraparenchymal hemorrhage. No evidence of mass lesion. No evidence of a cute infarction. There is mild periventricular and subcortical hypodensity probably related to small vessel ischemic disease. There is mild prominence of the sulci and ventricles related to cerebral atr ophy. Intracranial calcified cerebral atherosclerosis is noted. There are no extra-axial collections. There is no mass effect or midline shift. Changes in the globes are likely from ocular lens surgery. There is mild mucosal thickening of the paranasal sinuses. IMPRESSION: 1. No acute intracranial abnormality. 2. Age related findings. Reviewed, dictated and finalized at location A. RPRISE SALES PERSON
--- NOTE | ~2020-11-15 | US_ITS ---
EXAMINATION: US renal BI DATE: 11/21/2020 15:56 INDICATION: Funguria TECHNIQUE: Multiple ultrasound grayscale images of the kidneys were obtained. COMPARISON: Renal ultrasound dated 09/15/[address] abdomen and pelvis dated 08/07/2013 FINDINGS: The right kidney measures 11.2 x 5.8 x 1.2 cm. The left kidney measures 10.0 x 4.8 x 6.6 cm. The kidn eys demonstrate normal echogenicity. Again seen is a 3.9 cm anechoic right renal cyst with posterior acoustic enhancement. There is no hydronephrosis in either kidney. No stones identified. The bladder is decompressed around a Nair catheter which limits evaluation. IMPRESSION: 1. 3.9 cm right renal cyst. Otherwise normal kidneys without hydronephrosis. Reviewed, dictated and finalized at location A. CHER
--- NOTE | ~2020-11-15 | XR_ITS ---
EXAMINATION: XR chest 1V portable DATE: 11/15/2020 06:19 INDICATION: Shortness of breath. TECHNIQUE: A single frontal view of the chest was obtained. COMPARISON: Chest single view 10/20/2020, CT abdomen and pelvis 08/07/2013 FINDINGS: There are mild airspace opacities in the mid and lower lung zones. No pleural effusion or p neumothorax. The heart size is normal. A right upper extremity peripherally inserted central venous c atheter (PICC) is seen with tip in the superior vena cava. IMPRESSION: 1. Mild airspace opacities in the mid and lower lung zones with worsening on the left, consistent wit h atelectasis versus pneumonia. Reviewed, dictated and finalized at location A. DING MACHINE TENDER IMPRESSION: 1. Mild airspace opacities in the mid and lower lung zones with worsening on th e left, consistent with atelectasis versus pneumonia.
--- NOTE | 2020-11-15 05:46 | ECG_ITS ---
Measurements Intervals [place] Rate: 104 P: 10 GA: 161 QRS: -56 QRSD: 124 T: 87 QT: 369 QTc: 487 Interpretive Statements SINUS TACHYCARDIA LEFT AXIS DEVIATION LEFT BUNDLE BRANCH BLOCK ABNORMAL ECG Electronically Signed On 11-15-2020 6:28:[address] [employer] by Dom Murphy D.O.
--- NOTE | 2020-11-15 05:47 | ED.SOB ---
HPI - SOB/Dyspnea General Chief Complaint: Shortness of Breath/Dyspnea <Miguel Castañeda MD - Last Filed: 11/16/20 02:17> Stated Complaint: AMS/SOB <Miguel Castañeda MD - Last Filed: 11/16/20 02:17> Time Seen by Provider: 11/15/20 07:14 <Miguel Castañeda MD - Last Filed: 11/16/20 02:17> History of Present Illness HPI Narrative: 75 yo male w/ h/o dementia, HTN, DVT, a-fib, anemia presents to the ED for altered mental status. The [facility] staff reportedly went to check on the patient and found him lethargic and confused. He was reportedly only oriented to himself and his room air oxygen saturation was 88%. When EMS arrived they found him fully oriented with an RA sat of 98%. He does report mild SOB and a cough. Additionally he was noted to have diffuse edema, which is supposedly new since yesterday. <Miguel Castañeda MD - Last Filed: 11/16/20 02:17> Related Data Home Medications: Home Medications Medication Instructions Recorded Confirmed atorvastatin 40 mg PO DAILY 08/12/20 11/15/20 metoprolol succinate 25 mg PO DAILY 08/12/20 11/15/20 primidone 500 mg PO QID 08/12/20 11/15/20 artificial tears solution 1 drp OPHTHALMIC (EYE) BID 11/15/20 11/15/20 ropinirole 2 mg PO HS 11/15/20 11/15/20 <Miguel Castañeda MD - Last Filed: 11/16/20 02:17> Allergies/Adverse Reactions: Allergies Allergy/AdvReac Type Severity Reaction Status Date / Time No Known Allergies Allergy Unknown Verified 10/16/20 14:28 <Miguel Castañeda MD - Last Filed: 11/16/20 02:17> Review of Systems Constitutional: Constitutional: Reports fatigue, Denies fever(s) and Reports weakness <Miguel Castañeda MD - Last Filed: 11/16/20 02:17> Eyes: Eyes: Reports as per HPI <Miguel Castañeda MD - Last Filed: 11/16/20 02:17> ENT: Denies sore throat <Miguel Castañeda MD - Last Filed: 11/16/20 02:17> Cardiovascular: Cardiovascular: Denies chest pain <Migeul Castañeda MD - Last Filed: 11/16/20 02:17> Respiratory: Respiratory: Reports cough and Reports dyspnea <Miguel Castañeda MD - Last Filed: 11/16/20 02:17> Gastrointestinal: Gastrointestinal: Denies abdominal pain, Denies nausea and Denies vomiting <Miguel Castañeda MD - Last Filed: 11/16/20 02:17> Genitourinary: Comments: byrd <Miguel Castañeda MD - Last Filed: 11/16/20 02:17> Musculoskeletal: Musculoskeletal: Denies back pain <Miguel Castañeda MD - Last Filed: 11/16/20 02:17> Neurologic: Reports system reviewed and no additional complaints, except as documented <Miguel Castañeda MD - Last Filed: 11/16/20 02:17> [facility] Past Medical History Medical History: Medical History Acute renal failure (ARF) Acute respiratory failure with hypoxia Altered mental status Anxiety Anxiety and depression CAD (coronary artery disease) Cardiomyopathy Depression Discontinued smoking Diverticulitis DVT (deep venous thrombosis) GI bleed Heart attack History of myocardial infarction History of poliomyelitis Hyperlipidemia Hypernatremia Hypertension Macrocytic anemia Macular degeneration disease Malignant melanoma Non-ST elevation MS (NSTEMI) Parkinsons Paroxysmal atrial fibrillation Sepsis <Miguel Castañeda MD - Last Filed: 11/16/20 02:17> Surgical History Surgical History: Surgical History H/O cardiac catheterization H/O heart artery stent Stents in the proximal circ and OM2 in 2010 History of colonoscopy History of tonsillectomy <Miguel Castañeda MD - Last Filed: 11/16/20 02:17> Family History Family History: Family History Mother CHF (congestive heart failure) Father Malignant neoplasm of prostate Leukemia <Miguel Castañeda MD - Last Filed: 11/16/20 02:17> Social History Social History: Social History (Reviewe
[2020-11-15 06:38] LABS: Basophils Absolute Auto 0.1 K/mm3 (0.0-0.1); Basophils Percent Auto 0.8 % (0.2-1.2); Eosinophils Absolute Auto 0.1 K/mm3 (0-0.3); Eosinophils Percent Auto 1.3 % (0-4.4); Hemoglobin 7.1 g/dL (14.0-18.0); Immature Granulocyte Absolute 0.07 K/mm3 (0.00-0.031); Immature Granulocyte Percent A 0.6 % (0-0.5); Lymphocytes Absolute Auto 3.83 K/mm3 (0.9-3.2); Lymphocytes Percent Auto 34.4 % (18.3-44.2); Mean Corpuscular HGB Conc 30.9 g/dl (32-36); Mean Corpuscular Hemoglobin 27.6 pg (26-34); Mean Corpuscular Volume 89.5 fl (80-100); Mean Platelet Volume 9.6 fl (7.4-10.4); Monocytes Percent Auto 8.5 % (2.6-8.5); Neutrophils Absolute Auto 6.1 K/mm3 (1.3-6.7); Neutrophils Percent Auto 54.4 % (45.5-73.1); Platelet Count Result 424 k/mm3 (150-375); Red Blood Count 2.57 M/mm3 (4.6-6.20); Red Cell Distribution Width 16.5 % (11.5-14.5); White Blood Count 11.1 K/mm3 (4.5-10.0)
[2020-11-15 06:50] LABS: Alanine Aminotransferase 22 U/L (4-50); Albumin Level 2.3 g/dL (3.5-5.1); Alkaline Phosphatase 116 U/L (38-126); Anion Gap 1 mmol/L (8-16); Aspartate Amino Transferase 28 U/L (17-59); Bilirubin,Total 0.1 mg/dL (0.2-1.3); Blood Urea Nitrogen 11 mg/dL (9-20); Calcium 7.8 mg/dL (8.4-10.2); Carbon Dioxide 28 mmol/L (22-30); Chloride 108 mmol/L (98-107); Estimated CRCL calculation 55 ml/min; Estimated Glomerular Filt Rate > 60; Glucose 91 mg/dL (75-110); Potassium 3.6 mmol/L (3.4-5.0); Sodium 137 mmol/L (137-145)
[2020-11-15 06:51] LABS: Add Urine Microscopic? YES; Appearance Urine Turbid (Clear); Bilirubin Urine Negative (Negative); Blood Urine Negative (Negative); Budding Yeast Urine Present /hpf; Color Urine Yellow (Yellow); Glucose Urine UA Negative (Negative); Ketones Urine Negative (Negative); Leukocyte Esterase Ur 3+ LEU/UL (Negative); Mucus Urine Rare /lpf; Nitrate Urine Negative (Negative); Protein Urine 2+ mg/dL (Negative); RBC Urine 21-50 /hpf (0-2); Specific Grav Ur 1.013 (1.001-1.035); Urobilinogen Urine Negative mg/dL (<2.0); WBC Clumps Urine Present /HPF; WBC Urine >75 /hpf
[2020-11-15 06:52] LABS: INR 1.2; Prothrombin Time 15.8 Seconds (11.1-14.7)
[2020-11-15 06:53] LABS: Partial Thromboplastin Time 37.1 SECONDS (22.3-36.8)
[2020-11-15 07:04] LABS: NT Pro B Type Natriuretic Pept 4000 PG/ML (5-100); Troponin I 0.051 ng/mL (0.000-0.034)
[2020-11-15 07:14] LABS: Lactic Acid Reflex 0.7 mmol/L (0.7-2.1)
--- NOTE | 2020-11-15 07:54 | PC.NURSE ---
PICC placed on 10/20/20
--- NOTE | 2020-11-15 11:05 | ADMGEN ---
This patient, Saad Yarbrough, was admitted to 3 [facility] Surg Room 331-01. Patient/family oriented to hospital policies and general routines including ID bracelet, bed and alarms, visiting hours, pain management, procedures, bathroom and other care routines, personal items, smoking policy, room service/diet, and visiting hours. Information on how to activate the Rapid Response Team has been discussed. Patient/Family are encouraged to report perceived risks to care and to ask questions if they do not understand what they are told or what they should do.
--- NOTE | 2020-11-15 12:59 | PM.IMHP ---
H&P: HPI History of Present Illness Date/Time: 11/15/20 12:59 Chief Complaint: Altered mental status Narrative: Saad Yarbrough is a 75 year old male who was discharged from this hospital on 10/25/2020 with sepsis. He had possible pneumonia versus UTI. He also has chronic decubitus ulcer infections. He was placed on Zosyn at that time. Patient was noted to have a very large stage IV decubitus ulcer wound cultures were taken. On his previous admission he was evaluated by surgery and he is just being monitored at this time. Patient was also found to be in acute renal failure and was evaluated by Nephrology at that time. Last admission his EF was noted to be 20-25%. Patient was discharged back to at [facility]. The patient came in today due to altered mental status changes from the senior living. The senior living staff went to check on the patient found him to be lethargic and confused. Typically he is orientated to himself. Today his oxygen level was found to be 88%. However when EMS arrived patient's O2 saturations were 98% on room air. Today his kidney functions are normal. His sodium levels normal this admission. His troponin is 0.051 which is lower from his previous levels. Last admission was 0.375. His wound culture did come back as MRSA admission came back as Mala albicans. 11.1 however his previous admission it had been 13.4 in 14.6 so this is lower than what it had been. From today read as mild airspace opacities in the mid and lower lung zones with worsening on the left consistent with atelectasis versus pneumonia. And UTI he was started on azithromycin and Rocephin. Pulse is down to 97 and blood pressure is 103/56. Pulse ox is now 99%. Ulcer on his sacral area and his left lower extremity. Patient is being admitted to inpatient services. Date of service is 11/15/2020 Review of Systems Review of Systems: All systems reviewed & are unremarkable except as noted in HPI and below Constitutional: Constitutional: Reports as per HPI and Reports no additional constitutional complaints Eyes: Eyes: Reports as per HPI and Reports no additional eye complaints ENT: Reports system reviewed and no additional complaints, except as documented and Reports Normal hearing present Cardiovascular: Cardiovascular: Reports no additional cardiovascular complaints Respiratory: Respiratory: Reports no additional respiratory complaints and Reports no additional respiratory complaints Gastrointestinal: Gastrointestinal: Reports as per HPI and Reports no additional gastrointestinal complaints Musculoskeletal: Musculoskeletal: Reports no additional musculoskeletal complaints Integumentary/Breasts: Skin/Breast: Reports system reviewed and no additional complaints, except as docu and Reports as per HPI Neurologic: Reports system reviewed and no additional complaints, except as documented, Reports as per HPI and Reports Normal hearing present Psychiatric: Psychiatric: Reports no additional psychiatric complaints and Reports as per HPI Endocrine: Endocrine: Reports no additional endocrine complaints Hematologic/Lymphatic: Hematologic/Lymphatic: Reports no additional hematologic/lymphatic complaints Allergic/Immunologic: Allergic/Immunologic: Reports no additional allergic/immunologic complaints [facility] Past Medical History Medical History Acute renal failure (ARF) Acute respiratory failure with hypoxia Altered mental status Anxiety Anxiety and depression CAD (coronary artery disease) Cardiomyopathy Depression Discontinued smoking Diverticulitis DVT (deep venous thrombosis) GI bleed Heart attack History of myocardial infarction History of poliomyelitis Hyperlipidemia Hypernatremia Hypertension Macrocytic anemia Macular degeneration disease Malignant melanoma Non-ST elevation NE (NSTEMI) Parkinsons Paroxysmal atrial fibrillation Sepsis Surgical History Surgical
[2020-11-15] MEDS: ASPIRIN 81 MG CHEWABLE TABLET PO (14:53)
[2020-11-15] MEDS: ATORVASTATIN 40 MG TABLET PO (14:53)
[2020-11-15] MEDS: PRIMIDONE 250 MG TABLET 500 MG PO ×3 (14:54→21:23)
--- NOTE | 2020-11-15 15:17 | PCNSR ---
On 11/15/20, the student, Jacquelyn Linton, provided care and completed [facility] documentation on this patient. I have reviewed the student's documentation and agree with the findings.
[2020-11-15] MEDS: SILVERGEL (ELTA) 45 ML 1 APPLIC TOPICAL (17:11)
[2020-11-15] MEDS: HYDROcodone/acetaminophen (*CRX) 10-325 MG TABLET 1 TAB PO ×2 (17:14→23:22)
[2020-11-15 17:40] LABS: Troponin I 0.038 ng/mL (0.000-0.034)
--- NOTE | 2020-11-15 19:42 | PC.NURSE ---
Spoke with the son Evens @[phone] and [phone]. Gave general updates and answered all questions per Evens.
[2020-11-15 20:53] LABS: SARS-CoV-2 RNA PCR Negative
[2020-11-15] MEDS: APIXABAN 5 MG TABLET PO (21:23)
[2020-11-15] MEDS: rOPINIRole HCL 1 MG TABLET 2 MG PO (21:23)
[2020-11-16] VITALS (7 sets, daily range): BP systolic 100–123; BP diastolic 40–67; PULSE 95–101; RESP 16–20; TEMP 36.1–36.8; O2SAT 94–100
[2020-11-16 05:35] LABS: Basophils Absolute Auto 0.1 K/mm3 (0.0-0.1); Basophils Percent Auto 1.1 % (0.2-1.2); Eosinophils Absolute Auto 0.2 K/mm3 (0-0.3); Eosinophils Percent Auto 3.5 % (0-4.4); Hematocrit 23.9 % (42.0-52.0); Immature Granulocyte Absolute 0.03 K/mm3 (0.00-0.031); Immature Granulocyte Percent A 0.5 % (0-0.5); Lymphocytes Absolute Auto 2.63 K/mm3 (0.9-3.2); Lymphocytes Percent Auto 41.8 % (18.3-44.2); Mean Corpuscular HGB Conc 28.9 g/dl (32-36); Mean Corpuscular Volume 93.4 fl (80-100); Mean Platelet Volume 9.7 fl (7.4-10.4); Monocytes Absolute Auto 0.6 K/mm3 (0.1-0.6); Monocytes Percent Auto 9.4 % (2.6-8.5); Neutrophils Absolute Auto 2.8 K/mm3 (1.3-6.7); Neutrophils Percent Auto 43.7 % (45.5-73.1); Platelet Count Result 351 k/mm3 (150-375); Red Blood Count 2.56 M/mm3 (4.6-6.20); Red Cell Distribution Width 16.8 % (11.5-14.5); White Blood Count 6.3 K/mm3 (4.5-10.0)
[2020-11-16 05:56] LABS: Hemoglobin 6.9 g/dL (14.0-18.0)
[2020-11-16] MEDS: SODIUM CHLORIDE 0.9% IV 250 ML 30 ML IV CONT (06:11)
[2020-11-16] MEDS: HYDROcodone/acetaminophen (*CRX) 10-325 MG TABLET 1 TAB PO ×3 (06:19→20:51)
[2020-11-16 06:25] LABS: Alanine Aminotransferase 19 U/L (4-50); Albumin Level 1.9 g/dL (3.5-5.1); Alkaline Phosphatase 102 U/L (38-126); Anion Gap 3 mmol/L (8-16); Aspartate Amino Transferase 23 U/L (17-59); Bilirubin,Total < 0.1 mg/dL (0.2-1.3); Blood Urea Nitrogen 13 mg/dL (9-20); Calcium 7.7 mg/dL (8.4-10.2); Carbon Dioxide 27 mmol/L (22-30); Chloride 106 mmol/L (98-107); Estimated CRCL calculation 56 ml/min; Estimated Glomerular Filt Rate > 60; Glucose 82 mg/dL (75-110); Magnesium 1.4 mg/dL (1.6-2.3); Sodium 136 mmol/L (137-145)
[2020-11-16] MEDS: ATORVASTATIN 40 MG TABLET PO (09:44)
[2020-11-16] MEDS: APIXABAN 5 MG TABLET PO ×2 (09:45→20:52)
[2020-11-16] MEDS: ASPIRIN 81 MG CHEWABLE TABLET PO (09:45)
[2020-11-16] MEDS: PRIMIDONE 250 MG TABLET 500 MG PO ×4 (09:45→20:51)
--- NOTE | 2020-11-16 10:48 | PM.CNGS ---
Assessment and Plan Assessment and plan (1) Decubitus ulcer of sacral region, stage 4: Code(s): L89.154 - Pressure ulcer of sacral region, stage 4 Status: Chronic Assessment and Plan: continue silver gel daily with gauze and ABDs. Wound is healing as well as can be expected. Avoid lying on his back. Prospects of actual healing are slim and wound is doing as well as can be expected. We will sign off. Call if can be of further assistance. (2) Anemia: Code(s): D64.9 - Anemia, unspecified Status: Acute (3) Sepsis: Code(s): A41.9 - Sepsis, unspecified organism Status: Acute (4) Urinary tract infection: Qualifiers: Encounter type: initial encounter Indwelling urinary catheter type: unspecified Urinary tract infection type: catheter-associated UTI Qualified Code(s): T83.511A - Infection and inflammatory reaction due to indwelling urethral catheter, initial encounter; N39.0 - Urinary tract infection, site not specified Code(s): N39.0 - Urinary tract infection, site not specified Status: Acute (5) Pneumonia: Qualifiers: Laterality: unspecified laterality Lung location: unspecified part of lung Pneumonia type: due to unspecified organism Qualified Code(s): J18.9 - Pneumonia, unspecified organism Code(s): J18.9 - Pneumonia, unspecified organism Status: Acute (6) CHF (congestive heart failure): Qualifiers: Heart failure chronicity: chronic Heart failure type: unspecified Qualified Code(s): I50.9 - Heart failure, unspecified Code(s): I50.9 - Heart failure, unspecified Status: Chronic History of Present Illness Consult details Consult date: 11/16/20 Reason for consult: wound care Narrative: Patient is a 75-year-old man with Parkinson's disease and multiple medical illnesses. He had a large sacral decubitus which underwent surgical debridement by Dr. Mercer on 10/16/2020, exactly a month ago. This had been healing with silver gel dressing changes gauze and ABDs. He had been transferred back to the group home but now has been readmitted with mental status changes, sepsis, recurrent UTI and pneumonia. He is chronically anticoagulated and has congestive heart failure with a very low ejection fraction. We are asked to see him now again regarding his sacral decubitus. He has in the past had to have central venous catheters for dialysis and long-term antibiotics. It appears kidney function has been preserved in this admission. Review of Systems Review of Systems: All systems reviewed & are unremarkable except as noted in HPI and below Constitutional: Constitutional: Reports as per HPI, Reports no additional constitutional complaints, Reports fatigue, Denies fever(s) and Reports weakness Cardiovascular: Cardiovascular: Reports no additional cardiovascular complaints, Denies chest pain and Reports dyspnea Respiratory: Respiratory: Reports no additional respiratory complaints, Reports no additional respiratory complaints, Reports cough and Reports dyspnea Gastrointestinal: Gastrointestinal: Reports as per HPI, Reports no additional gastrointestinal complaints, Denies abdominal pain, Denies nausea and Denies vomiting Musculoskeletal: Musculoskeletal: Reports no additional musculoskeletal complaints and Denies back pain Integumentary/Breasts: Skin/Breast: Reports system reviewed and no additional complaints, except as docu and Reports as per HPI Neurologic: Reports system reviewed and no additional complaints, except as documented, Reports as per HPI, Reports confusion and Reports weakness Psychiatric: Psychiatric: Reports no additional psychiatric complaints, Reports as per HPI and Reports confusion Hematologic/Lymphatic: Hematologic/Lymphatic: Reports easy bleeding ( Takes Eliquis for atrial fibrillation) [facility] Past Medical History Medical History Acute avtar
--- NOTE | 2020-11-16 12:40 | P.PNIM_ITS ---
Progress Note: A&P Assessment and Plan (1) Sepsis: Code(s): A41.9 - Sepsis, unspecified organism Status: Acute Assessment and Plan: Last admission his urine grew out Mala albicans. His urine is positive for UTI this admission and is very cloudy. Initially he was on a Zithromax and Rocephin in the emergency room. I changed his antibiotics to Zosyn and vanco. Last admission the patient was found to have MRSA and his chronic sacral ulcer. Surgical consult noted, no debridement needed at present time. (2) Pneumonia: Qualifiers: Laterality: unspecified laterality Lung location: unspecified part of lung Pneumonia type: due to unspecified organism Qualified Code(s): J18.9 - Pneumonia, unspecified organism Code(s): J18.9 - Pneumonia, unspecified organism Status: Acute Assessment and Plan: The patient was treated last admission which was a month ago for pneumonia. The patient is currently on vancomycin and Zosyn.. His white count is elevated but has been elevated since last month. His white counts now 11.1 and last month it was 14.6. Mild air space opacities in the mid and lower lung zones consistent with worsening on the left consistent with atelectasis versus pneumonia. (3) CHF (congestive heart failure): Qualifiers: Heart failure chronicity: chronic Heart failure type: unspecified Qualified Code(s): I50.9 - Heart failure, unspecified Code(s): I50.9 - Heart failure, unspecified Status: Chronic Assessment and Plan: On 09/14/2020 with an EF of 20-25%. I am not able to give him is beta-alma today because of the low blood pressure. Lisinopril is on hold today due to low blood pressure. (4) Urinary tract infection: Qualifiers: Encounter type: initial encounter Indwelling urinary catheter type: unspecified Urinary tract infection type: catheter-associated UTI Qualified Code(s): T83.511A - Infection and inflammatory reaction due to indwelling urethral catheter, initial encounter; N39.0 - Urinary tract infection, site not specified Code(s): N39.0 - Urinary tract infection, site not specified Status: Acute Assessment and Plan: He is currently on Zosyn and Vanco. (5) Elevated troponin: Code(s): R77.8 - Other specified abnormalities of plasma proteins Status: Acute Assessment and Plan: Patient chronically has an elevated troponin. He is not complaining of any chest pain. I will check 1 more to make sure that the troponins are continuing to decrease. He does have a history of coronary artery disease. His beta blockers on hold at this time. Continue with his aspirin. (6) Right leg DVT: Qualifiers: Affected thrombotic vein of extremity: unspecified vein of extremity Chronicity: acute Qualified Code(s): I82.401 - Acute embolism and thrombosis of unspecified deep veins of right lower extremity Code(s): I82.401 - Acute embolism and thrombosis of unspecified deep veins of right lower extremity Status: Acute Assessment and Plan: Patient is currently on Eliquis. Repeat studies negative (7) Paroxysmal atrial fibrillation: Code(s): I48.0 - Paroxysmal atrial fibrillation Status: Acute Assessment and Plan: Patient is tachycardia at this time. The patient is on Eliquis and is beta- blockers on hold due to his low blood pressure. (8) Decubital ulcer: Qualifiers: Pressure injury location: sacral region Pressure injury stage: unstageable Qualified Code(s): L89.150 - Pressure ulcer of sacral region, unstageable Code(s): L89.90 - Pressure ul
[2020-11-16] MEDS: SILVERGEL (ELTA) 45 ML 1 APPLIC TOPICAL ×2 (17:38)
[2020-11-16] MEDS: rOPINIRole HCL 1 MG TABLET 2 MG PO (20:52)
[2020-11-16 21:18] LABS: Glucose Point of Care 121 (65-105)
[2020-11-17] MEDS: ACETAMINOPHEN 325 MG TABLET 650 MG PO (01:20)
[2020-11-17] MEDS: HYDROcodone/acetaminophen (*CRX) 10-325 MG TABLET 1 TAB PO ×3 (03:42→21:29)
[2020-11-17 06:00] VITALS: BP 122/63; PULSE 92; RESP 20; TEMP 36.6; O2SAT 94
[2020-11-17 08:00] VITALS: PULSE 92; RESP 20; O2SAT 94
[2020-11-17] MEDS: ASPIRIN 81 MG CHEWABLE TABLET PO (08:20)
[2020-11-17] MEDS: SILVERGEL (ELTA) 45 ML 1 APPLIC TOPICAL ×2 (08:21→17:56)
[2020-11-17] MEDS: PRIMIDONE 250 MG TABLET 500 MG PO ×4 (08:21→21:25)
[2020-11-17] MEDS: ATORVASTATIN 40 MG TABLET PO (08:21)
[2020-11-17] MEDS: APIXABAN 5 MG TABLET PO ×2 (08:21→21:25)
--- NOTE | 2020-11-17 10:25 | PM.IMPN ---
Progress Note: A&P Assessment and Plan (1) Sepsis: Code(s): A41.9 - Sepsis, unspecified organism Status: Acute Assessment and Plan: Last admission his urine grew out Mala albicans. His urine is positive for UTI this admission and is very cloudy. Initially he was on a Zithromax and Rocephin in the emergency room. I changed his antibiotics to Zosyn and vanco. Last admission the patient was found to have MRSA and his chronic sacral ulcer. Surgical consult noted, no debridement needed at present time. (2) Pneumonia: Qualifiers: Laterality: unspecified laterality Lung location: unspecified part of lung Pneumonia type: due to unspecified organism Qualified Code(s): J18.9 - Pneumonia, unspecified organism Code(s): J18.9 - Pneumonia, unspecified organism Status: Acute Assessment and Plan: The patient was treated last admission which was a month ago for pneumonia. The patient is currently on vancomycin and Zosyn.. His white count is elevated but has been elevated since last month. His white counts now 11.1 and last month it was 14.6. Mild air space opacities in the mid and lower lung zones consistent with worsening on the left consistent with atelectasis versus pneumonia. (3) CHF (congestive heart failure): Qualifiers: Heart failure chronicity: chronic Heart failure type: unspecified Qualified Code(s): I50.9 - Heart failure, unspecified Code(s): I50.9 - Heart failure, unspecified Status: Chronic Assessment and Plan: On 09/14/2020 with an EF of 20-25%. I am not able to give him is beta-alma today because of the low blood pressure. Lisinopril is on hold today due to low blood pressure. (4) Urinary tract infection: Qualifiers: Encounter type: initial encounter Indwelling urinary catheter type: unspecified Urinary tract infection type: catheter-associated UTI Qualified Code(s): T83.511A - Infection and inflammatory reaction due to indwelling urethral catheter, initial encounter; N39.0 - Urinary tract infection, site not specified Code(s): N39.0 - Urinary tract infection, site not specified Status: Acute Assessment and Plan: He is currently on Zosyn and Vanco. Urine culture shows yeast infection will start IV Diflucan. (5) Elevated troponin: Code(s): R77.8 - Other specified abnormalities of plasma proteins Status: Acute Assessment and Plan: Patient chronically has an elevated troponin. He is not complaining of any chest pain. I will check 1 more to make sure that the troponins are continuing to decrease. He does have a history of coronary artery disease. His beta blockers on hold at this time. Continue with his aspirin. (6) Right leg DVT: Qualifiers: Affected thrombotic vein of extremity: unspecified vein of extremity Chronicity: acute Qualified Code(s): I82.401 - Acute embolism and thrombosis of unspecified deep veins of right lower extremity Code(s): I82.401 - Acute embolism and thrombosis of unspecified deep veins of right lower extremity Status: Acute Assessment and Plan: Patient is currently on Eliquis. Repeat studies negative (7) Paroxysmal atrial fibrillation: Code(s): I48.0 - Paroxysmal atrial fibrillation Status: Acute Assessment and Plan: Patient is tachycardia at this time. The patient is on Eliquis and is beta-blockers on hold due to his low blood pressure. (8) Decubital ulcer: Qualifiers: Pressure injury location: sacral region Pressure injury stage: unstageable Qualified Code(s): L89.150 - Pressure ulcer of sacral region, unstageable Code(s): L89.90 - Pressure ulcer of unspecified site, unspecified stage Status: Chronic Assessment and Plan: Patient has a chronic decubitus sacral ulcer and we did ask for wound care clinic to see the patient. He also has a chronic decubitus ulcer on his left heel.
[2020-11-17] MEDS: MULTIVIT W/ IRON, MINERALS 15 ML LIQUID (*BKC) PO (12:24)
[2020-11-17] MEDS: FLUCONAZOLE 100 MG/NACL 50 ML 100 MG/50 ML BTL 50 MG IVPB (12:24)
[2020-11-17 14:00] VITALS: BP 130/85; PULSE 98; RESP 20; TEMP 37.3; O2SAT 100
[2020-11-17 18:41] LABS: Basophils Absolute Auto 0.1 K/mm3 (0.0-0.1); Basophils Percent Auto 1.1 % (0.2-1.2); Eosinophils Absolute Auto 0.3 K/mm3 (0-0.3); Eosinophils Percent Auto 3.5 % (0-4.4); Hematocrit 26.8 % (42.0-52.0); Hemoglobin 8.4 g/dL (14.0-18.0); Immature Granulocyte Absolute 0.06 K/mm3 (0.00-0.031); Immature Granulocyte Percent A 0.7 % (0-0.5); Lymphocytes Absolute Auto 2.35 K/mm3 (0.9-3.2); Lymphocytes Percent Auto 27.5 % (18.3-44.2); Mean Corpuscular HGB Conc 31.3 g/dl (32-36); Mean Corpuscular Hemoglobin 27.9 pg (26-34); Mean Platelet Volume 9.3 fl (7.4-10.4); Monocytes Absolute Auto 0.8 K/mm3 (0.1-0.6); Monocytes Percent Auto 9.4 % (2.6-8.5); Neutrophils Absolute Auto 4.9 K/mm3 (1.3-6.7); Neutrophils Percent Auto 57.8 % (45.5-73.1); Platelet Count Result 382 k/mm3 (150-375); Red Blood Count 3.01 M/mm3 (4.6-6.20); Red Cell Distribution Width 16.6 % (11.5-14.5); White Blood Count 8.5 K/mm3 (4.5-10.0)
[2020-11-17 18:56] LABS: Alanine Aminotransferase 20 U/L (4-50); Albumin Level 2.4 g/dL (3.5-5.1); Alkaline Phosphatase 112 U/L (38-126); Anion Gap 1 mmol/L (8-16); Aspartate Amino Transferase 27 U/L (17-59); Bilirubin,Total < 0.1 mg/dL (0.2-1.3); Blood Urea Nitrogen 19 mg/dL (9-20); Calcium 7.9 mg/dL (8.4-10.2); Carbon Dioxide 29 mmol/L (22-30); Chloride 104 mmol/L (98-107); Estimated CRCL calculation 52 ml/min; Estimated Glomerular Filt Rate 59; Glucose 110 mg/dL (75-110); Potassium 4.1 mmol/L (3.4-5.0); Sodium 134 mmol/L (137-145)
[2020-11-17 20:00] VITALS: PULSE 102; RESP 20; O2SAT 100
[2020-11-17] MEDS: rOPINIRole HCL 1 MG TABLET 2 MG PO (21:25)
[2020-11-17 22:00] VITALS: BP 121/70; PULSE 102; RESP 20; TEMP 36.6; O2SAT 100
[2020-11-18] VITALS (7 sets, daily range): BP systolic 122–145; BP diastolic 53–80; PULSE 82–101; RESP 20; TEMP 36.6–36.9; O2SAT 97–98
[2020-11-18 05:16] LABS: Hematocrit 26.5 % (42.0-52.0); Hemoglobin 8.2 g/dL (14.0-18.0); Mean Corpuscular HGB Conc 30.9 g/dl (32-36); Mean Corpuscular Hemoglobin 27.6 pg (26-34); Mean Corpuscular Volume 89.2 fl (80-100); Mean Platelet Volume 9.6 fl (7.4-10.4); Platelet Count Result 385 k/mm3 (150-375); Red Blood Count 2.97 M/mm3 (4.6-6.20); Red Cell Distribution Width 16.7 % (11.5-14.5); White Blood Count 8.1 K/mm3 (4.5-10.0)
[2020-11-18 06:00] LABS: Troponin I 0.027 ng/mL (0.000-0.034)
--- NOTE | 2020-11-18 09:20 | PM.IMPN ---
Progress Note: A&P Assessment and Plan (1) Sepsis: Code(s): A41.9 - Sepsis, unspecified organism Status: Acute Assessment and Plan: Last admission his urine grew out Mala albicans. His urine is positive for UTI this admission and is very cloudy. Initially he was on a Zithromax and Rocephin in the emergency room. I changed his antibiotics to Zosyn and vanco. Last admission the patient was found to have MRSA and his chronic sacral ulcer. Surgical consult noted, no debridement needed at present time. (2) Pneumonia: Qualifiers: Laterality: unspecified laterality Lung location: unspecified part of lung Pneumonia type: due to unspecified organism Qualified Code(s): J18.9 - Pneumonia, unspecified organism Code(s): J18.9 - Pneumonia, unspecified organism Status: Acute Assessment and Plan: The patient was treated last admission which was a month ago for pneumonia. The patient is currently on vancomycin and Zosyn.. His white count is is better. Will switch to p.o. antibiotic. (3) CHF (congestive heart failure): Qualifiers: Heart failure chronicity: chronic Heart failure type: unspecified Qualified Code(s): I50.9 - Heart failure, unspecified Code(s): I50.9 - Heart failure, unspecified Status: Chronic Assessment and Plan: On 09/14/2020 with an EF of 20-25%. I am not able to give him is beta-alma today because of the low blood pressure. Lisinopril is on hold today due to low blood pressure. (4) Urinary tract infection: Qualifiers: Encounter type: initial encounter Indwelling urinary catheter type: unspecified Urinary tract infection type: catheter-associated UTI Qualified Code(s): T83.511A - Infection and inflammatory reaction due to indwelling urethral catheter, initial encounter; N39.0 - Urinary tract infection, site not specified Code(s): N39.0 - Urinary tract infection, site not specified Status: Acute Assessment and Plan: He is currently on Zosyn and Vanco. Urine culture shows yeast infection will start IV Diflucan. (5) Elevated troponin: Code(s): R77.8 - Other specified abnormalities of plasma proteins Status: Acute Assessment and Plan: Patient chronically has an elevated troponin. He is not complaining of any chest pain. I will check 1 more to make sure that the troponins are continuing to decrease. He does have a history of coronary artery disease. His beta blockers on hold at this time. Continue with his aspirin. (6) Right leg DVT: Qualifiers: Affected thrombotic vein of extremity: unspecified vein of extremity Chronicity: acute Qualified Code(s): I82.401 - Acute embolism and thrombosis of unspecified deep veins of right lower extremity Code(s): I82.401 - Acute embolism and thrombosis of unspecified deep veins of right lower extremity Status: Acute Assessment and Plan: Patient is currently on Eliquis. Repeat studies negative (7) Paroxysmal atrial fibrillation: Code(s): I48.0 - Paroxysmal atrial fibrillation Status: Acute Assessment and Plan: Patient is tachycardia at this time. The patient is on Eliquis. Will restart beta-blockers. (8) Decubital ulcer: Qualifiers: Pressure injury location: sacral region Pressure injury stage: unstageable Qualified Code(s): L89.150 - Pressure ulcer of sacral region, unstageable Code(s): L89.90 - Pressure ulcer of unspecified site, unspecified stage Status: Chronic Assessment and Plan: Patient has a chronic decubitus sacral ulcer and we did ask for wound care clinic to see the patient. He also has a chronic decubitus ulcer on his left heel. (9) Parkinsons: Code(s): G20 - Parkinson's disease Status: Chronic Assessment and Plan: Continue with primidone (10) Hypertension: Qualifiers: Hypertension type: unspecified Qualified Cod
[2020-11-18] MEDS: ATORVASTATIN 40 MG TABLET PO (10:11)
[2020-11-18] MEDS: PRIMIDONE 250 MG TABLET 500 MG PO ×4 (10:11→21:40)
[2020-11-18] MEDS: APIXABAN 5 MG TABLET PO ×2 (10:11→21:40)
[2020-11-18] MEDS: ASPIRIN 81 MG CHEWABLE TABLET PO (10:11)
[2020-11-18] MEDS: SILVERGEL (ELTA) 45 ML 1 APPLIC TOPICAL ×2 (10:12→18:07)
[2020-11-18] MEDS: METOPROLOL SUCCINATE EXT REL 12.5 MG TABCR PO ×2 (10:12→21:41)
[2020-11-18] MEDS: MULTIVIT W/ IRON, MINERALS 15 ML LIQUID (*BKC) PO (10:12)
[2020-11-18] MEDS: FLUCONAZOLE 100 MG/NACL 50 ML 100 MG/50 ML BTL 50 MG IVPB (12:26)
[2020-11-18] MEDS: HYDROcodone/acetaminophen (*CRX) 10-325 MG TABLET 1 TAB PO ×2 (12:33→21:45)
--- NOTE | 2020-11-18 20:37 | ADMGEN ---
At 2014, This patient, Saad Yarbrough, was admitted to [facility] Surg Room 331-01. Patient/family oriented to hospital policies and general routines including ID bracelet, bed and alarms, visiting hours, pain management, procedures, bathroom and other care routines, personal items, smoking policy, room service/diet, and visiting hours. Information on how to activate the Rapid Response Team has been discussed. Patient/Family are encouraged to report perceived risks to care and to ask questions if they do not understand what they are told or what they should do.
[2020-11-18] MEDS: rOPINIRole HCL 1 MG TABLET 2 MG PO (21:40)
[2020-11-19] VITALS (8 sets, daily range): BP systolic 108–110; BP diastolic 63–69; PULSE 84–98; RESP 18–22; TEMP 36.1–36.8; O2SAT 96–98; BMI 11.0
[2020-11-19] MEDS: SILVERGEL (ELTA) 45 ML 1 APPLIC TOPICAL ×2 (05:06→18:21)
[2020-11-19] MEDS: HYDROcodone/acetaminophen (*CRX) 10-325 MG TABLET 1 TAB PO ×3 (05:37→21:58)
[2020-11-19 06:17] LABS: Estimated CRCL calculation 56 ml/min; Estimated Glomerular Filt Rate > 60
[2020-11-19] MEDS: ASPIRIN 81 MG CHEWABLE TABLET PO (09:23)
[2020-11-19] MEDS: APIXABAN 5 MG TABLET PO ×2 (09:24→21:51)
[2020-11-19] MEDS: PRIMIDONE 250 MG TABLET 500 MG PO ×4 (09:24→21:52)
[2020-11-19] MEDS: METOPROLOL SUCCINATE EXT REL 12.5 MG TABCR PO ×2 (09:24→21:52)
[2020-11-19] MEDS: ATORVASTATIN 40 MG TABLET PO (09:25)
[2020-11-19] MEDS: MULTIVIT W/ IRON, MINERALS 15 ML LIQUID (*BKC) PO (09:26)
--- NOTE | 2020-11-19 10:32 | PM.DS ---
DS: Admitting Diagnosis Admitting Diagnosis Admitting Diagnosis: 1. Sepsis 2. UTI 3. Pneumonia 4. History of parkinsonism 5. History of congestive heart failure DS: Discharge Diagnosis Discharge Diagnosis (1) Sepsis: Code(s): A41.9 - Sepsis, unspecified organism Status: Acute Assessment and Plan: Last admission his urine grew out Mala albicans. His urine is positive for UTI this admission and is very cloudy. Initially he was on a Zithromax and Rocephin in the emergency room. I changed his antibiotics to Zosyn and vanco. Last admission the patient was found to have MRSA and his chronic sacral ulcer. Surgical consult noted, no debridement needed at present time. (2) Pneumonia: Qualifiers: Laterality: unspecified laterality Lung location: unspecified part of lung Pneumonia type: due to unspecified organism Qualified Code(s): J18.9 - Pneumonia, unspecified organism Code(s): J18.9 - Pneumonia, unspecified organism Status: Acute Assessment and Plan: The patient was treated last admission which was a month ago for pneumonia. The patient is currently on vancomycin and Zosyn.. His white count is is better. Will switch to p.o. antibiotic. (3) CHF (congestive heart failure): Qualifiers: Heart failure chronicity: chronic Heart failure type: unspecified Qualified Code(s): I50.9 - Heart failure, unspecified Code(s): I50.9 - Heart failure, unspecified Status: Chronic Assessment and Plan: On 09/14/2020 with an EF of 20-25%. I am not able to give him is beta-alma today because of the low blood pressure. Lisinopril is on hold today due to low blood pressure. (4) Urinary tract infection: Qualifiers: Encounter type: initial encounter Indwelling urinary catheter type: unspecified Urinary tract infection type: catheter-associated UTI Qualified Code(s): T83.511A - Infection and inflammatory reaction due to indwelling urethral catheter, initial encounter; N39.0 - Urinary tract infection, site not specified Code(s): N39.0 - Urinary tract infection, site not specified Status: Acute Assessment and Plan: He is currently on Zosyn and Vanco. Urine culture shows yeast infection will start IV Diflucan. (5) Elevated troponin: Code(s): R77.8 - Other specified abnormalities of plasma proteins Status: Acute Assessment and Plan: Patient chronically has an elevated troponin. He is not complaining of any chest pain. I will check 1 more to make sure that the troponins are continuing to decrease. He does have a history of coronary artery disease. His beta blockers on hold at this time. Continue with his aspirin. (6) Right leg DVT: Qualifiers: Affected thrombotic vein of extremity: unspecified vein of extremity Chronicity: acute Qualified Code(s): I82.401 - Acute embolism and thrombosis of unspecified deep veins of right lower extremity Code(s): I82.401 - Acute embolism and thrombosis of unspecified deep veins of right lower extremity Status: Acute Assessment and Plan: Patient is currently on Eliquis. Repeat studies negative (7) Paroxysmal atrial fibrillation: Code(s): I48.0 - Paroxysmal atrial fibrillation Status: Acute Assessment and Plan: Patient is tachycardia at this time. The patient is on Eliquis. Will restart beta-blockers. (8) Decubital ulcer: Qualifiers: Pressure injury location: sacral region Pressure injury stage: unstageable Qualified Code(s): L89.150 - Pressure ulcer of sacral region, unstageable Code(s): L89.90 - Pressure ulcer of unspecified site, unspecified stage Status: Chronic Assessment and Plan: Patient has a chronic decubitus sacral ulcer and we did ask for wound care clinic to see the patient. He also has a chronic decubitus ulcer on his left heel. (9) Parkinsons: Code(s): G20 - Parkinson's dis
--- NOTE | 2020-11-19 10:57 | P.PNIM_ITS ---
Progress Note: A&P Assessment and Plan (1) Sepsis: Code(s): A41.9 - Sepsis, unspecified organism Status: Acute Assessment and Plan: Last admission his urine grew out Mala albicans. His urine is positive for UTI this admission and is very cloudy. Initially he was on a Zithromax and Rocephin in the emergency room. I changed his antibiotics to Zosyn and vanco. Last admission the patient was found to have MRSA and his chronic sacral ulcer. Surgical consult noted, no debridement needed at present time. (2) Pneumonia: Qualifiers: Laterality: unspecified laterality Lung location: unspecified part of lung Pneumonia type: due to unspecified organism Qualified Code(s): J18.9 - Pneumonia, unspecified organism Code(s): J18.9 - Pneumonia, unspecified organism Status: Acute Assessment and Plan: The patient was treated last admission which was a month ago for pneumonia. The patient is currently on vancomycin and Zosyn.. His white count is is better. Will switch to p.o. antibiotic. (3) CHF (congestive heart failure): Qualifiers: Heart failure chronicity: chronic Heart failure type: unspecified Qualified Code(s): I50.9 - Heart failure, unspecified Code(s): I50.9 - Heart failure, unspecified Status: Chronic Assessment and Plan: On 09/14/2020 with an EF of 20-25%. I am not able to give him is beta-alma today because of the low blood pressure. Lisinopril is on hold today due to low blood pressure. (4) Urinary tract infection: Qualifiers: Encounter type: initial encounter Indwelling urinary catheter type: unspecified Urinary tract infection type: catheter-associated UTI Qualified Code(s): T83.511A - Infection and inflammatory reaction due to indwelling urethral catheter, initial encounter; N39.0 - Urinary tract infection, site not specified Code(s): N39.0 - Urinary tract infection, site not specified Status: Acute Assessment and Plan: He is currently on Zosyn and Vanco. Urine culture shows yeast infection will start IV Diflucan. (5) Elevated troponin: Code(s): R77.8 - Other specified abnormalities of plasma proteins Status: Acute Assessment and Plan: Patient chronically has an elevated troponin. He is not complaining of any chest pain. I will check 1 more to make sure that the troponins are continuing to decrease. He does have a history of coronary artery disease. His beta blockers on hold at this time. Continue with his aspirin. (6) Right leg DVT: Qualifiers: Affected thrombotic vein of extremity: unspecified vein of extremity Chronicity: acute Qualified Code(s): I82.401 - Acute embolism and thrombosis of unspecified deep veins of right lower extremity Code(s): I82.401 - Acute embolism and thrombosis of unspecified deep veins of right lower extremity Status: Acute Assessment and Plan: Patient is currently on Eliquis. Repeat studies negative (7) Paroxysmal atrial fibrillation: Code(s): I48.0 - Paroxysmal atrial fibrillation Status: Acute Assessment and Plan: Patient is tachycardia at this time. The patient is on Eliquis. Will restart beta-blockers. (8) Decubital ulcer: Qualifiers: Pressure injury location: sacral region Pressure injury stage: unstageable Qualified Code(s): L89.150 - Pressure ulcer of sacral region, unstageable Code(s): L89.90 - Pressure ulcer of unspecified site, unspecified stage Status: Chronic Assessment and Plan: Patient has a chronic decubitus sacral ulcer and we did ask for w
[2020-11-19] MEDS: FLUCONAZOLE 100 MG/NACL 50 ML 100 MG/50 ML BTL 50 MG IVPB (12:42)
[2020-11-19] MEDS: rOPINIRole HCL 1 MG TABLET 2 MG PO (21:52)
[2020-11-20 06:00] VITALS: BP 108/64; PULSE 91; RESP 20; TEMP 36.6; O2SAT 100
[2020-11-20 08:58] VITALS: PULSE 90
[2020-11-20] MEDS: PRIMIDONE 250 MG TABLET 500 MG PO ×4 (08:58→22:11)
[2020-11-20] MEDS: APIXABAN 5 MG TABLET PO ×2 (08:58→22:11)
[2020-11-20] MEDS: METOPROLOL SUCCINATE EXT REL 12.5 MG TABCR PO ×2 (08:58→22:15)
[2020-11-20] MEDS: ASPIRIN 81 MG CHEWABLE TABLET PO (08:58)
[2020-11-20] MEDS: MULTIVIT W/ IRON, MINERALS 15 ML LIQUID (*BKC) PO (08:59)
[2020-11-20] MEDS: ATORVASTATIN 40 MG TABLET PO (08:59)
[2020-11-20] MEDS: SILVERGEL (ELTA) 45 ML 1 APPLIC TOPICAL ×2 (11:28→16:59)
--- NOTE | 2020-11-20 13:14 | PCDIET ---
Nutrition Follow-Up Complete: Nutrition Diagnosis: Increased protein needs related to wounds as evidenced by stage IV decubitus ulcer. Nutrition Goal: Consumes 75% or more of meals. Goal in progress. Intakes have been between 50-75% at most meals with acceptance of both Ensure Enlive BID and Ghanshyam BID, per nurse aid. However, today nurse aid reports patient has been refusing food and supplements. Current diet order is heart healthy which is appropriate, as tolerated. Last recorded weight is 103.4 kg. Recommend obtaining new weight. Bowel Motility: Last documented BM on 11/19/20 x 1. Labs Reviewed: Hgb (8.2), Hct (26.5) Meds Noted: Venetie, Lipitor, Diflucan, Toprol, Centrum, Septra Additional Notes: No significant change in wounds documented. Would continue to encourage intake of meals and supplements. Nutrition Monitoring and Evaluation: Follow up in 3 days.
--- NOTE | 2020-11-20 13:52 | PM.IMPN ---
Progress Note: A&P Assessment and Plan (1) Sepsis: Code(s): A41.9 - Sepsis, unspecified organism Status: Acute Assessment and Plan: Last admission his urine grew out Mala albicans. Last admission the patient was found to have MRSA from his chronic sacral ulcer. Surgical consult noted, no debridement needed at present time. His urine is positive for UTI this admission and is very cloudy. Initially he was on a Zithromax and Rocephin in the emergency room but changed to Zosyn and vanco. UCx growing candidia and Diflucan started. Abx stopped. Septra added but currently on hold. Continue to monitor (2) Pneumonia: Qualifiers: Laterality: unspecified laterality Lung location: unspecified part of lung Pneumonia type: due to unspecified organism Qualified Code(s): J18.9 - Pneumonia, unspecified organism Code(s): J18.9 - Pneumonia, unspecified organism Status: Acute Assessment and Plan: The patient was treated last admission which was a month ago for pneumonia. The patient was started on vancomycin and Zosyn but off abx now. (3) CHF (congestive heart failure): Qualifiers: Heart failure chronicity: chronic Heart failure type: unspecified Qualified Code(s): I50.9 - Heart failure, unspecified Code(s): I50.9 - Heart failure, unspecified Status: Chronic Assessment and Plan: Echo on 09/14/2020 with an EF of 20-25%. Tolerating metoprolol. Very edematous. Will start Lasix low dose and monitor closely. (4) Urinary tract infection: Qualifiers: Encounter type: initial encounter Indwelling urinary catheter type: unspecified Urinary tract infection type: catheter-associated UTI Qualified Code(s): T83.511A - Infection and inflammatory reaction due to indwelling urethral catheter, initial encounter; N39.0 - Urinary tract infection, site not specified Code(s): N39.0 - Urinary tract infection, site not specified Status: Acute Assessment and Plan: UA noted. He was on Zosyn and Vanco. Urine culture shows yeast infection so IV Diflucan started. Abx have been stopped. Stop Bactrim. (5) Elevated troponin: Code(s): R77.8 - Other specified abnormalities of plasma proteins Status: Acute Assessment and Plan: Troponin elevated at 0.051 on admission but trending down now. EKG showing no acute findings (LBBB is chronic). [place] related to Type II CT from demand ischemia related to above. Continue ASA, Lipitor and Metoprolol. (6) Paroxysmal atrial fibrillation: Code(s): I48.0 - Paroxysmal atrial fibrillation Status: Acute Assessment and Plan: Patient was tachycardia at times but better since resuming Toprol. Continue Eliquis. 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 Contineu current dressing changes. (8) Parkinsons: Code(s): G20 - Parkinson's disease Status: Chronic Assessment and Plan: Stable. Continue with primidone. (9) Hypertension: Qualifiers: Hypertension type: unspecified Qualified Code(s): I10 - Essential (primary) hypertension Code(s): I10 - Essential (primary) hypertension Status: Chronic Assessment and Plan: Patient's blood pressure was reviewed on 11/20 Blood pressure remains well controlled. Metoprolol resumed and tolerating this well. (10) Anemia: Code(s): D64.9 - Anemia, unspecified Status: Acute Assessment and Plan: Hemoglobin 7.1 and dropped to 6.9 on 11/16 and one unit transfused. Hgb up to 8 rang
[2020-11-20 14:00] VITALS: BP 111/58; PULSE 97; RESP 18; TEMP 36.5; O2SAT 96
[2020-11-20] MEDS: FLUCONAZOLE 100 MG/NACL 50 ML 100 MG/50 ML BTL 50 MG IVPB (14:41)
[2020-11-20 15:39] LABS: Anion Gap 1 mmol/L (8-16); Blood Urea Nitrogen 20 mg/dL (9-20); Calcium 7.7 mg/dL (8.4-10.2); Carbon Dioxide 28 mmol/L (22-30); Chloride 107 mmol/L (98-107); Estimated CRCL calculation 56 ml/min; Estimated Glomerular Filt Rate > 60; Glucose 104 mg/dL (75-110); Potassium 4.3 mmol/L (3.4-5.0); Sodium 136 mmol/L (137-145)
[2020-11-20] MEDS: FUROSEMIDE INJ 40 MG/4 ML VIAL 20 MG IV PUSH ×2 (16:58→22:09)
[2020-11-20 21:50] VITALS: BP 133/66; PULSE 107; RESP 20; TEMP 36.2; O2SAT 93
[2020-11-20] MEDS: rOPINIRole HCL 1 MG TABLET 2 MG PO (22:10)
[2020-11-20 22:15] VITALS: PULSE 107
[2020-11-20] MEDS: ACETAMINOPHEN 325 MG TABLET 650 MG PO (22:25)
[2020-11-21] MEDS: FUROSEMIDE INJ 40 MG/4 ML VIAL 20 MG IV PUSH ×3 (05:39→21:00)
[2020-11-21 05:43] VITALS: BP 127/58; PULSE 101; RESP 16; TEMP 36.3; O2SAT 97
[2020-11-21 05:54] VITALS: TEMP 36.3
[2020-11-21] MEDS: ACETAMINOPHEN 325 MG TABLET 650 MG PO (05:54)
[2020-11-21 06:13] LABS: Basophils Absolute Auto 0.1 K/mm3 (0.0-0.1); Eosinophils Percent Auto 0.5 % (0-4.4); Hematocrit 26.9 % (42.0-52.0); Hemoglobin 8.3 g/dL (14.0-18.0); Immature Granulocyte Absolute 0.05 K/mm3 (0.00-0.031); Immature Granulocyte Percent A 0.6 % (0-0.5); Lymphocytes Absolute Auto 2.46 K/mm3 (0.9-3.2); Lymphocytes Percent Auto 28.4 % (18.3-44.2); Mean Corpuscular HGB Conc 30.9 g/dl (32-36); Mean Corpuscular Hemoglobin 27.3 pg (26-34); Mean Corpuscular Volume 88.5 fl (80-100); Mean Platelet Volume 9.7 fl (7.4-10.4); Monocytes Absolute Auto 0.5 K/mm3 (0.1-0.6); Monocytes Percent Auto 6.2 % (2.6-8.5); Neutrophils Absolute Auto 5.5 K/mm3 (1.3-6.7); Neutrophils Percent Auto 63.3 % (45.5-73.1); Platelet Count Result 386 k/mm3 (150-375); Red Blood Count 3.04 M/mm3 (4.6-6.20); Red Cell Distribution Width 17.1 % (11.5-14.5); White Blood Count 8.7 K/mm3 (4.5-10.0)
[2020-11-21 06:25] LABS: Alanine Aminotransferase 18 U/L (4-50); Albumin Level 2.4 g/dL (3.5-5.1); Alkaline Phosphatase 133 U/L (38-126); Anion Gap 4 mmol/L (8-16); Aspartate Amino Transferase 29 U/L (17-59); Bilirubin,Total 0.1 mg/dL (0.2-1.3); Blood Urea Nitrogen 19 mg/dL (9-20); Calcium 7.8 mg/dL (8.4-10.2); Carbon Dioxide 30 mmol/L (22-30); Chloride 103 mmol/L (98-107); Estimated CRCL calculation 52 ml/min; Estimated Glomerular Filt Rate 59; Glucose 100 mg/dL (75-110); Magnesium 1.7 mg/dL (1.6-2.3); Phosphorus 3.9 mg/dL (2.5-4.5); Potassium 3.9 mmol/L (3.4-5.0); Sodium 137 mmol/L (137-145)
[2020-11-21 09:06] VITALS: PULSE 98
[2020-11-21] MEDS: PRIMIDONE 250 MG TABLET 500 MG PO ×3 (09:06→17:17)
[2020-11-21] MEDS: APIXABAN 5 MG TABLET PO (09:06)
[2020-11-21] MEDS: ATORVASTATIN 40 MG TABLET PO (09:06)
[2020-11-21] MEDS: ASPIRIN 81 MG CHEWABLE TABLET PO (09:06)
[2020-11-21] MEDS: METOPROLOL SUCCINATE EXT REL 12.5 MG TABCR PO (09:06)
[2020-11-21] MEDS: MULTIVIT W/ IRON, MINERALS 15 ML LIQUID (*BKC) PO (09:07)
[2020-11-21] MEDS: SILVERGEL (ELTA) 45 ML 1 APPLIC TOPICAL ×2 (09:11→17:16)
--- NOTE | 2020-11-21 11:50 | ECG_ITS ---
Measurements Intervals [place] Rate: 97 P: 33 VA: 180 QRS: -61 QRSD: 125 T: 94 QT: 393 QTc: 500 Interpretive Statements SINUS RHYTHM LEFT AXIS DEVIATION LEFT BUNDLE BRANCH BLOCK ABNORMAL ECG Electronically Signed On 11-21-2020 13:13:35 HOUSEKEEPER/LAUNDRY ASSISTANT by Dom Murphy D.O.
[2020-11-21] MEDS: FLUCONAZOLE 100 MG/NACL 50 ML 100 MG/50 ML BTL 50 MG IVPB (12:59)
[2020-11-21 14:00] VITALS: BP 121/57; PULSE 96; RESP 18; TEMP 37.4; O2SAT 93
--- NOTE | 2020-11-21 15:12 | PM.IMPN ---
Progress Note: A&P Assessment and Plan (1) Altered mental status: Code(s): R41.82 - Altered mental status, unspecified Status: Acute Assessment and Plan: Patient more obtunded past two days. Appears to be more metabolic. He is on both Requip and Primidone. Will decrease these medication to see if this improves his symptoms. Check CT brain. (2) Sepsis: Code(s): A41.9 - Sepsis, unspecified organism Status: Acute Assessment and Plan: Last admission his urine grew out Mala albicans. Last admission the patient was found to have MRSA from his chronic sacral ulcer. Surgical consult noted, no debridement needed at present time. His urine is positive for UTI this admission and is very cloudy. Initially he was on a Zithromax and Rocephin in the emergency room but changed to Zosyn and vanco. UCx growing candidia and Diflucan started. Abx stopped. Continue to monitor. Check renal US to exclude fungal ball. (3) Pneumonia: Qualifiers: Laterality: unspecified laterality Lung location: unspecified part of lung Pneumonia type: due to unspecified organism Qualified Code(s): J18.9 - Pneumonia, unspecified organism Code(s): J18.9 - Pneumonia, unspecified organism Status: Acute Assessment and Plan: The patient was treated last admission which was a month ago for pneumonia. The patient was started on vancomycin and Zosyn but off abx now. Repeat CXR in the morning (4) CHF (congestive heart failure): Qualifiers: Heart failure chronicity: chronic Heart failure type: unspecified Qualified Code(s): I50.9 - Heart failure, unspecified Code(s): I50.9 - Heart failure, unspecified Status: Chronic Assessment and Plan: Echo on 09/14/2020 with an EF of 20-25%. Tolerating metoprolol. Still very edematous but better. Toelrating Lasix. Cr stable. Good UOP. UE doppler negative for DVT. Follow for now. (5) Urinary tract infection: Qualifiers: Encounter type: initial encounter Indwelling urinary catheter type: unspecified Urinary tract infection type: catheter-associated UTI Qualified Code(s): T83.511A - Infection and inflammatory reaction due to indwelling urethral catheter, initial encounter; N39.0 - Urinary tract infection, site not specified Code(s): N39.0 - Urinary tract infection, site not specified Status: Acute Assessment and Plan: UA noted. He was on Zosyn and Vanco. Urine culture shows yeast infection so IV Diflucan started. Abx have been stopped. (6) Elevated troponin: Code(s): R77.8 - Other specified abnormalities of plasma proteins Status: Acute Assessment and Plan: Troponin elevated at 0.051 on admission but trending down now. Repeat EKG today showing no acute findings (LBBB is chronic). [place] related to Type II [place] from demand ischemia related to above. Continue ASA, Lipitor and Metoprolol. (7) Paroxysmal atrial fibrillation: Code(s): I48.0 - Paroxysmal atrial fibrillation Status: Acute Assessment and Plan: Patient was tachycardia at times but better since resuming Toprol. EKG ordered showing normal sinus rhythm. Continue Eliquis. 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 Continue current dressing changes. (9) Parkinsons: Code(s): G20 - Parkinson's disease Status: Chronic Assessment and Plan: Stable. Continue with primidone. (10) Hypertension: Qualifiers: Hypertension type: unspecified Qualified Code(s): I10 - Essential
--- NOTE | 2020-11-21 15:20 | PCSTNOTE ---
Please refer to the Bedside Swallow Evaluation in the EMR. Recommend MBS. Please note, silent aspiration cannot be ruled out at bedside.
[2020-11-21 20:45] VITALS: PULSE 101; RESP 20; O2SAT 99
[2020-11-21 21:38] VITALS: BP 114/61; PULSE 101; RESP 20; TEMP 37.7; O2SAT 99
[2020-11-21 23:29] LABS: Basophils Absolute Auto 0.1 K/mm3 (0.0-0.1); Basophils Percent Auto 0.9 % (0.2-1.2); Eosinophils Absolute Auto 0.1 K/mm3 (0-0.3); Eosinophils Percent Auto 0.7 % (0-4.4); Hematocrit 26.2 % (42.0-52.0); Hemoglobin 8.2 g/dL (14.0-18.0); Immature Granulocyte Absolute 0.05 K/mm3 (0.00-0.031); Immature Granulocyte Percent A 0.5 % (0-0.5); Lymphocytes Absolute Auto 2.25 K/mm3 (0.9-3.2); Mean Corpuscular HGB Conc 31.3 g/dl (32-36); Mean Corpuscular Hemoglobin 28.1 pg (26-34); Mean Corpuscular Volume 89.7 fl (80-100); Mean Platelet Volume 9.8 fl (7.4-10.4); Monocytes Absolute Auto 0.7 K/mm3 (0.1-0.6); Monocytes Percent Auto 6.5 % (2.6-8.5); Neutrophils Absolute Auto 7.1 K/mm3 (1.3-6.7); Neutrophils Percent Auto 69.4 % (45.5-73.1); Platelet Count Result 382 k/mm3 (150-375); Red Blood Count 2.92 M/mm3 (4.6-6.20); Red Cell Distribution Width 17.1 % (11.5-14.5); White Blood Count 10.2 K/mm3 (4.5-10.0)
[2020-11-22 06:00] VITALS: BP 120/59; PULSE 99; RESP 22; TEMP 37; O2SAT 95
[2020-11-22 06:29] LABS: Hematocrit 24.6 % (42.0-52.0); Mean Corpuscular HGB Conc 32.5 g/dl (32-36); Mean Platelet Volume 10.3 fl (7.4-10.4); Platelet Count Result 363 k/mm3 (150-375); Red Blood Count 2.86 M/mm3 (4.6-6.20); Red Cell Distribution Width 17.1 % (11.5-14.5); White Blood Count 10.2 K/mm3 (4.5-10.0)
[2020-11-22 06:33] LABS: Anion Gap 2 mmol/L (8-16); Blood Urea Nitrogen 18 mg/dL (9-20); Calcium 7.4 mg/dL (8.4-10.2); Carbon Dioxide 31 mmol/L (22-30); Chloride 104 mmol/L (98-107); Estimated CRCL calculation 52 ml/min; Estimated Glomerular Filt Rate 59; Glucose 77 mg/dL (75-110); Magnesium 1.7 mg/dL (1.6-2.3); Potassium 3.9 mmol/L (3.4-5.0); Sodium 137 mmol/L (137-145)
[2020-11-22] MEDS: FUROSEMIDE INJ 40 MG/4 ML VIAL 20 MG IV PUSH ×2 (06:46→12:51)
[2020-11-22 08:22] LABS: Lactic Acid Reflex 0.6 mmol/L (0.7-2.1)
[2020-11-22] MEDS: SILVERGEL (ELTA) 45 ML 1 APPLIC TOPICAL ×2 (09:58→21:00)
[2020-11-22 09:59] VITALS: PULSE 64
--- NOTE | 2020-11-22 12:12 | PC.NURSE ---
[address] Rivas that pt was unable to take anything po , difficult to awaken and then just moans not answering question, Dr states ok to hold po meds.
[2020-11-22] MEDS: FLUCONAZOLE 100 MG/NACL 50 ML 100 MG/50 ML BTL 50 MG IVPB (12:50)
[2020-11-22 14:00] VITALS: BP 106/57; PULSE 92; RESP 16; TEMP 36.6; O2SAT 95
--- NOTE | 2020-11-22 15:19 | PM.IMPN ---
Progress Note: A&P Assessment and Plan (1) Altered mental status: Code(s): R41.82 - Altered mental status, unspecified Status: Acute Assessment and Plan: Patient remains obtunded. Etiology unclear. CT brain no acute findings. He is on both Requip and Primidone which will be held. Related to chronic decub ulcer? occult infection? CVA? Check CRP. Neuro consult. Repeat cultures. Consider MRI. Will talk with family about hospice. Discussed with family (son, brother of patient). They were updated and all questions answered. They are considering just making the patient comfortable. Will hold on further evaluation until a decision is made. Family has decided to make Mr Yarbrough comfortable. Plan for comfort measures and have hospice consult. Spiritual counselor consult. (2) Sepsis: Code(s): A41.9 - Sepsis, unspecified organism Status: Acute Assessment and Plan: Last admission his urine grew out Mala albicans. Last admission the patient was found to have MRSA from his chronic sacral ulcer. Surgical consulted but no debridement needed at present time. His urine is positive for UTI this admission and is very cloudy. Initially he was on a Zithromax and Rocephin in the emergency room but changed to Zosyn and vanco. UCx growing mala and Diflucan started. Abx stopped. Renal US showing no acute findings. Continue to monitor. (3) Pneumonia: Qualifiers: Laterality: unspecified laterality Lung location: unspecified part of lung Pneumonia type: due to unspecified organism Qualified Code(s): J18.9 - Pneumonia, unspecified organism Code(s): J18.9 - Pneumonia, unspecified organism Status: Acute Assessment and Plan: The patient was treated last admission which was a month ago for pneumonia. The patient was started on vancomycin and Zosyn but off abx now. Repeat CXR showing bilateral mid and lower lung zone airspace disease. (4) CHF (congestive heart failure): Qualifiers: Heart failure chronicity: chronic Heart failure type: unspecified Qualified Code(s): I50.9 - Heart failure, unspecified Code(s): I50.9 - Heart failure, unspecified Status: Chronic Assessment and Plan: Echo on 09/14/2020 with an EF of 20-25%. Tolerating metoprolol but held due to inability to swallow. Diffuse edema better. Good UOP. Cr remained stable. UE doppler negative for DVT. Stop Lasix. Follow for now. (5) Urinary tract infection: Qualifiers: Encounter type: initial encounter Indwelling urinary catheter type: unspecified Urinary tract infection type: catheter-associated UTI Qualified Code(s): T83.511A - Infection and inflammatory reaction due to indwelling urethral catheter, initial encounter; N39.0 - Urinary tract infection, site not specified Code(s): N39.0 - Urinary tract infection, site not specified Status: Acute Assessment and Plan: UA noted. He was on Zosyn and Vanco. Urine culture shows yeast infection so IV Diflucan started. Abx have been stopped. (6) Elevated troponin: Code(s): R77.8 - Other specified abnormalities of plasma proteins Status: Acute Assessment and Plan: Troponin elevated at 0.051 on admission but trending down now. Repeat EKG today showing no acute findings (LBBB is chronic). [place] related to Type II [place] from demand ischemia related to above. Continue ASA, Lipitor and Metoprolol as he tolerates. (7) Paroxysmal atrial fibrillation: Code(s): I48.0 - Paroxysmal atrial fibrillation Status: Acute Assessment and Plan: Patient was tachycardia at times but better since resuming Toprol. EKG ordered showing normal sinus rhythm. Continue Eliquis as he toelrates. (8) Decubital ulcer: Qualifiers: Pressure injury location: sacral region Pressure injury stage: unstageable Qualified Code(s): L89.150 - Pressure ulc
--- NOTE | 2020-11-22 15:25 | PC.NURSE ---
spoke with pt son oleksandr chavez, explained pt condition and that he was not doing well, unable to take anything by mouth , explained pt has a full code status , asked if he wished to keep that or change him to DNR, explanined what cpr was , and what DNr status would be, also asked him to consider pt nutritional status if he continues to be unable to take anything by mouth, son expressed he would speak with pt sister and brother, and let us know.
[2020-11-22 22:00] VITALS: BP 120/61; PULSE 97; RESP 20; TEMP 37; O2SAT 98
[2020-11-23 06:00] VITALS: BP 128/62; PULSE 40; RESP 22; TEMP 37; O2SAT 96
--- NOTE | 2020-11-23 14:14 | PCNFU ---
Nutrition Follow-Up Complete: Increased protein needs related to wounds as evidenced by stage IV decubitus ulcer wound. Goal: Consumes 75% or more of meals. Pt current nutrition is NPO except medications with sips. Last recorded weight is 103.4 kg. Bowel Motility: + BM 11/22 Labs Reviewed: Hgb 8.0, Hct 24.6 Meds Noted: Zithromax, Primidone, Requip, Vancomycin Hcl, Apixaban, Lipitor Additional Notes: Hospice consult. The plan is for patient to be discharged hospice. No further nutritional interventions.
--- NOTE | 2020-11-23 14:22 | PCNSR ---
On 11/23/20, the student,Jacquelyn Linton, provided care and completed [facility] documentation on this patient. I have reviewed the student's documentation and agree with the findings.
--- NOTE | 2020-11-23 14:29 | PM.DS ---
DS: Admitting Diagnosis Admitting Diagnosis Admitting Diagnosis: Altered mental status DS: Discharge Diagnosis Discharge Diagnosis (1) Altered mental status: Code(s): R41.82 - Altered mental status, unspecified Status: Acute (2) Sepsis: Code(s): A41.9 - Sepsis, unspecified organism Status: Acute (3) Pneumonia: Qualifiers: Laterality: unspecified laterality Lung location: unspecified part of lung Pneumonia type: due to unspecified organism Qualified Code(s): J18.9 - Pneumonia, unspecified organism Code(s): J18.9 - Pneumonia, unspecified organism Status: Acute (4) CHF (congestive heart failure): Qualifiers: Heart failure chronicity: chronic Heart failure type: unspecified Qualified Code(s): I50.9 - Heart failure, unspecified Code(s): I50.9 - Heart failure, unspecified Status: Chronic (5) Urinary tract infection: Qualifiers: Encounter type: initial encounter Indwelling urinary catheter type: unspecified Urinary tract infection type: catheter-associated UTI Qualified Code(s): T83.511A - Infection and inflammatory reaction due to indwelling urethral catheter, initial encounter; N39.0 - Urinary tract infection, site not specified Code(s): N39.0 - Urinary tract infection, site not specified Status: Acute (6) Elevated troponin: Code(s): R77.8 - Other specified abnormalities of plasma proteins Status: Acute (7) Paroxysmal atrial fibrillation: Code(s): I48.0 - Paroxysmal atrial fibrillation Status: Acute (8) Decubital ulcer: Qualifiers: Pressure injury location: sacral region Pressure injury stage: unstageable Qualified Code(s): L89.150 - Pressure ulcer of sacral region, unstageable Code(s): L89.90 - Pressure ulcer of unspecified site, unspecified stage Status: Chronic (9) Parkinsons: Code(s): G20 - Parkinson's disease Status: Chronic (10) Hypertension: Qualifiers: Hypertension type: unspecified Qualified Code(s): I10 - Essential (primary) hypertension Code(s): I10 - Essential (primary) hypertension Status: Chronic (11) Anemia: Code(s): D64.9 - Anemia, unspecified Status: Acute (12) Right leg DVT: Qualifiers: Affected thrombotic vein of extremity: unspecified vein of extremity Chronicity: acute Qualified Code(s): I82.401 - Acute embolism and thrombosis of unspecified deep veins of right lower extremity Code(s): I82.401 - Acute embolism and thrombosis of unspecified deep veins of right lower extremity Status: Acute DS: Summary Hospital Course Reason for hospitalization: 75-year-old male was admitted for altered mental status. Please see H&P for details. Hospital Course: Patient admitted due to altered mental status. CT brain no acute findings. Last admission his urine grew out Mala albicans and the patient was found to have MRSA from his chronic sacral ulcer. Surgical consulted here but no debridement needed at present time. His UA was positive for UTI this admission and is very cloudy. Initially he was on a Zithromax and Rocephin in the emergency room but changed to Zosyn and Vanco. UCx growing mala. Diflucan started and Abx stopped. Renal US showing no acute findings. He remained obtunded. Etiology unclear. Related to chronic decub ulcer? occult infection? CVA? Discussed with family (son, brother of patient) about options including comfort measures/hospice. They were updated and all questions answered. They decided to make Mr Yarbrough comfortable. Comfort measures started and hospice consulted. Spiritual counselor consulted. Arrangements made and patient moved to inpatient hospice care on 11/23/20. (Medication list already finalized many days ago so the medication list below is inaccurate) Status at Discharge Functional status at discharge: bed bound Time Spent with Patien
== END 2020-11-23 15:09 | disposition hospice, inpatient (51) | DRG 698 ==
LOC: ANHED 07:51 → ANH3MEDSUR 08:22
PROVIDERS: Emergency Medicine; Family Medicine; Internal Medicine; Nurse Practitioner; Admitting Provider Family Medicine; Emergency Provider Emergency Medicine; PCP Internal Medicine; Visit Provider Internal Medicine
DX: T83.511A Infection and inflammatory reaction due to indwelling urethral catheter, initial encounter (principal); A41.9 Sepsis, unspecified organism; L89.154 Pressure ulcer of sacral region, stage 4; J18.9 Pneumonia, unspecified organism; I21.A1 Myocardial infarction type 2; B37.49 Other urogenital candidiasis; Z20.822 Contact with and (suspected) exposure to COVID-19; I50.9 Heart failure, unspecified; G20 Parkinson's disease; D64.9 Anemia, unspecified; I11.0 Hypertensive heart disease with heart failure; F41.8 Other specified anxiety disorders; I44.7 Left bundle-branch block, unspecified; I25.10 Atherosclerotic heart disease of native coronary artery without angina pectoris; E78.5 Hyperlipidemia, unspecified; H35.30 Unspecified macular degeneration; I48.0 Paroxysmal atrial fibrillation; L89.620 Pressure ulcer of left heel, unstageable; Z86.718 Personal history of other venous thrombosis and embolism; I25.2 Old myocardial infarction; Z86.12 Personal history of poliomyelitis; Z85.820 Personal history of malignant melanoma of skin; Z95.5 Presence of coronary angioplasty implant and graft; Z87.891 Personal history of nicotine dependence; Z79.01 Long term (current) use of anticoagulants
CPT/HCPCS: 36415; 36430; 70450; 71045; 76775; 80048; 80053; 81001; 82565; 82948; 83605; 83735; 83880; 84100; 84443; 84484; 85025; 85027; 85610; 85730; 86850; 86900; 86901; 86923; 87040; 87086; 87088; 92610; 93005; 93970; 96365; 96367; 97110; 97162; 97166; 97530; 97535; 99285; A9270; C9803; J0456; J0696; J1450; J1940; J2543; J3370; J7050; P9016; U0003; U0005

== ENCOUNTER 2020-11-23 12:00 | HOS | payer OTHER, MEDICARE, SELFPAY ==
[2020-11-23] MEDS: MORPHINE SULFATE INJ (*CRX) 50 MG in SODIUM CHLORIDE 0.9% IV 95 ML IV CONT (16:20)
[2020-11-23 16:52] VITALS: BMI 36.8
--- NOTE | 2020-11-24 11:03 | PM.IMHP ---
H&P: HPI History of Present Illness Date/Time: 11/24/20 11:03 Chief Complaint: uncontrolled dyspnea and pain Narrative: Saad Yarbrough is a 75 year old male senior care resident who was admitted to acute care due to altered mental status. CT of the brain was unremarkable. He grew MRSA from his stage IV presacral decubitus. Urinalysis with abnormal with Mala albicans, similar to last admission. Chest x-ray revealed pulmonary infiltrates in the mid and lower lung zones bilaterally. He was treated initially with Zithromax and Rocephin. This was switched to vancomycin and Zosyn. He was unable to swallow and choking on his secretions. Because he failed to improve and because of his poor functional status overall his family opted for comfort care only. Review of Systems Review of Systems: ROS unobtainable: Yes unobtainable due to medical condition PMFSH Past Medical History Medical History Acute renal failure (ARF) Acute respiratory failure with hypoxia Altered mental status Anxiety Anxiety and depression CAD (coronary artery disease) Cardiomyopathy Depression Discontinued smoking Diverticulitis DVT (deep venous thrombosis) GI bleed Heart attack History of myocardial infarction History of poliomyelitis Hyperlipidemia Hypernatremia Hypertension Macrocytic anemia Macular degeneration disease Malignant melanoma Non-ST elevation [place] (NSTEMI) Parkinsons Paroxysmal atrial fibrillation Sepsis Surgical History Surgical History H/O cardiac catheterization H/O heart artery stent Stents in the proximal circ and OM2 in 2010 History of colonoscopy History of tonsillectomy Family History Family History Mother CHF (congestive heart failure) Father Malignant neoplasm of prostate Leukemia Social History Social History (Updated 11/24/20 @ 11:05 by Anthony Estrada MD) Social History: The patient used to smoke until he met his and then he quit. He used to smoke anywhere from a pack to half a pack a day but quit approximately 14 years ago. He rarely drank. He quit drinking about the same did quit smoking. He had 1 biological child a son who was murdered at the age of 21 related to drug activity. 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 DNR per family. Smoking status: Never smoker Tobacco type: cigarettes Second hand tobacco smoke exposure: No Alcohol intake: never Substance use: never Substance use type: former substance user and marijuana Other substance usage details: no drinking or smoking in 14 yrs Additional living arrangements comments: Currently at [facility] Gender identity (if verbalized by the patient): Male Spiritual care concerns: No Meds Home Medications and Allergies Home Medications Medication Instructions Recorded Confirmed Type atorvastatin 40 mg PO DAILY 08/12/20 11/15/20 History metoprolol succinate 25 mg PO DAILY 08/12/20 11/15/20 History primidone 500 mg PO QID 08/12/20 11/15/20 History acetaminophen [Mapap 650 mg PO Q4H PRN #30 tablet 09/08/20 11/15/20 Rx (acetaminophen)] Eliquis 5 mg PO Q12HR #60 tablet 10/01/20 11/15/20 Rx aspirin [Children's Aspirin] 81 mg PO DAILY@0800 #30 tablet 10/01/20 11/15/20 Rx lisinopril 2.5 mg PO SuTuThSa@0900 #20 tablet 10/01/20 11/15/20 Rx hydrocodone-acetaminophen [[place]] 1 tab PO Q6H PRN #0 tablet 10/25/20 11/15/20 Rx artificial tears solution 1 drp OPHTHALMIC (EYE) BID 11/15/20 11/15/20 History ropinirole 2 mg PO HS 11/15/20 11/15/20 History Allergies Allergy/AdvReac Type Severity Reaction Status Date / Time No Known Allergies Allergy Unknown Verified 10/16/20 14:28 Exam Narrative: Exam Narrative: SKIN: Dressings over coccyx, heels HEENT: PERRL but miotic, sclerae nonicteric, pharyngeal mucosa pink and dry NECK: No JV
[2020-11-24 14:00] VITALS: BP 100/64; PULSE 128; RESP 22; TEMP 37.8; O2SAT 70
[2020-11-24] MEDS: MORPHINE SULFATE INJ (*CRX) 50 MG in SODIUM CHLORIDE 0.9% IV 95 ML IV CONT (17:23)
[2020-11-24] MEDS: GLYCOPYRROLATE INJ (*SP) 0.2 MG/ML VIAL 0.1 MG IV PUSH (17:38)
[2020-11-24 20:00] VITALS: BP 96/61; PULSE 131; RESP 26; TEMP 37.1; O2SAT 71; O2SAT 75
[2020-11-24 20:05] VITALS: O2SAT 90
[2020-11-25 08:00] VITALS: BP 95/60; PULSE 122; RESP 18; TEMP 37.9; O2SAT 90; O2SAT 96
[2020-11-25 09:00] VITALS: TEMP 36.7
[2020-11-25] MEDS: LORazepam INJ (*CRX) 2 MG/ML VIAL 1 MG IV PUSH (15:35)
[2020-11-25] MEDS: GLYCOPYRROLATE INJ (*SP) 0.2 MG/ML VIAL 0.1 MG IV PUSH (15:46)
[2020-11-25] MEDS: MORPHINE SULFATE INJ (*CRX) 50 MG in SODIUM CHLORIDE 0.9% IV 95 ML IV CONT (15:47)
--- NOTE | 2020-11-25 17:13 | PM.IMPN ---
Progress Note: A&P Assessment and Plan (1) Palliative care by specialist: Code(s): Z51.5 - Encounter for palliative care Status: Acute Assessment and Plan: Meets GIP criteria due to uncontrolled dyspnea caused by choking and uncontrolled pain due to stage 4 sacral decubitus Morphine infusion 1mg/hr with bolus of 2mg q 2hr prn Remainder of palliative regimen as ordered (2) Pneumonia: Qualifiers: Laterality: unspecified laterality Lung location: unspecified part of lung Pneumonia type: due to unspecified organism Qualified Code(s): J18.9 - Pneumonia, unspecified organism Code(s): J18.9 - Pneumonia, unspecified organism Status: Acute (3) Anemia: Qualifiers: Anemia type: unspecified type Qualified Code(s): D64.9 - Anemia, unspecified Code(s): D64.9 - Anemia, unspecified Status: Acute (4) CHF (congestive heart failure): Qualifiers: Heart failure chronicity: chronic Heart failure type: unspecified Qualified Code(s): I50.9 - Heart failure, unspecified Code(s): I50.9 - Heart failure, unspecified Status: Chronic (5) Urinary tract infection: Qualifiers: Encounter type: initial encounter Indwelling urinary catheter type: unspecified Urinary tract infection type: catheter-associated UTI Qualified Code(s): T83.511A - Infection and inflammatory reaction due to indwelling urethral catheter, initial encounter; N39.0 - Urinary tract infection, site not specified Code(s): N39.0 - Urinary tract infection, site not specified Status: Acute (6) Decubitus ulcer of sacral region, stage 4: Code(s): L89.154 - Pressure ulcer of sacral region, stage 4 Status: Chronic (7) Heel ulcer: Qualifiers: Laterality: unspecified laterality Non-pressure ulcer stage: unspecified non-pressure ulcer stage Qualified Code(s): L97.409 - Non-pressure chronic ulcer of unspecified heel and midfoot with unspecified severity Code(s): L97.409 - Non-pressure chronic ulcer of unspecified heel and midfoot with unspecified severity Status: Acute (8) Sepsis: Qualifiers: Sepsis type: sepsis due to unspecified organism Sepsis acute organ dysfunction status: unspecified Qualified Code(s): A41.9 - Sepsis, unspecified organism Code(s): A41.9 - Sepsis, unspecified organism Status: Acute (9) Encephalopathy: Code(s): G93.40 - Encephalopathy, unspecified Status: Acute (10) CAD (coronary artery disease): Qualifiers: Coronary Disease-Associated Artery/Lesion type: [place] artery [place] vs. transplanted heart: [place] heart Associated angina: angina presence unspecified Qualified Code(s): I25.10 - Atherosclerotic heart disease of [place] coronary artery without angina pectoris Code(s): I25.10 - Atherosclerotic heart disease of [place] coronary artery without angina pectoris Status: Acute (11) History of 2019 novel coronavirus disease (COVID-19): Code(s): Z86.19 - Personal history of other infectious and parasitic diseases Status: Acute (12) Paroxysmal atrial fibrillation: Code(s): I48.0 - Paroxysmal atrial fibrillation Status: Acute Subjective Date/time seen: 11/25/20 17:13 Interval history: Admitted 11/23 for uncontrolled dyspnea, restlessness. 11/25: Comfortable on morhpine infusion. Febrile this PM. Review of Systems Review of Systems: ROS unobtainable: Yes unobtainable due to medical condition Exam Narrative: Exam Narrative: SKIN: Dressings over coccyx, heels HEENT: PERRL but miotic, sclerae nonicteric, pharyngeal mucosa pink and dry NECK: No JVD CHEST: Coarse crackles throughout. Normal effort. HEART: NL S1/S2, regular, tachycardic, no murmur ABDOMEN: BS hypoactive, soft, nontender, no mass, no bruits EXTREMITIES: No cyanosis, edema. NEUROLOGIC: CN intact and symmetric to inspection. MUSCULOSKELETAL: Tone and stre
[2020-11-25 20:00] VITALS: BP 109/73; PULSE 122; RESP 22; TEMP 37.3; O2SAT 96
[2020-11-26 08:00] VITALS: BP 100/58; PULSE 123; RESP 18; TEMP 38.3; O2SAT 98
[2020-11-26 12:00] VITALS: TEMP 38.7
[2020-11-26 13:30] VITALS: TEMP 37.5
[2020-11-26 15:30] VITALS: TEMP 37.5
[2020-11-26] MEDS: MORPHINE SULFATE INJ (*CRX) 50 MG in SODIUM CHLORIDE 0.9% IV 95 ML IV CONT (15:41)
--- NOTE | 2020-11-26 17:52 | PM.IMPN ---
Progress Note: A&P Assessment and Plan (1) Palliative care by specialist: Code(s): Z51.5 - Encounter for palliative care Status: Acute Assessment and Plan: Meets GIP criteria due to uncontrolled dyspnea caused by choking and uncontrolled pain due to stage 4 sacral decubitus Morphine infusion 1mg/hr with bolus of 2mg q 2hr prn Temp addressed with acetaminophen and cold packs Remainder of palliative regimen as ordered (2) Pneumonia: Qualifiers: Laterality: unspecified laterality Lung location: unspecified part of lung Pneumonia type: due to unspecified organism Qualified Code(s): J18.9 - Pneumonia, unspecified organism Code(s): J18.9 - Pneumonia, unspecified organism Status: Acute (3) Anemia: Qualifiers: Anemia type: unspecified type Qualified Code(s): D64.9 - Anemia, unspecified Code(s): D64.9 - Anemia, unspecified Status: Acute (4) CHF (congestive heart failure): Qualifiers: Heart failure chronicity: chronic Heart failure type: unspecified Qualified Code(s): I50.9 - Heart failure, unspecified Code(s): I50.9 - Heart failure, unspecified Status: Chronic (5) Urinary tract infection: Qualifiers: Encounter type: initial encounter Indwelling urinary catheter type: unspecified Urinary tract infection type: catheter-associated UTI Qualified Code(s): T83.511A - Infection and inflammatory reaction due to indwelling urethral catheter, initial encounter; N39.0 - Urinary tract infection, site not specified Code(s): N39.0 - Urinary tract infection, site not specified Status: Acute (6) Decubitus ulcer of sacral region, stage 4: Code(s): L89.154 - Pressure ulcer of sacral region, stage 4 Status: Chronic (7) Heel ulcer: Qualifiers: Laterality: unspecified laterality Non-pressure ulcer stage: unspecified non-pressure ulcer stage Qualified Code(s): L97.409 - Non-pressure chronic ulcer of unspecified heel and midfoot with unspecified severity Code(s): L97.409 - Non-pressure chronic ulcer of unspecified heel and midfoot with unspecified severity Status: Acute (8) Sepsis: Qualifiers: Sepsis type: sepsis due to unspecified organism Sepsis acute organ dysfunction status: unspecified Qualified Code(s): A41.9 - Sepsis, unspecified organism Code(s): A41.9 - Sepsis, unspecified organism Status: Acute (9) Encephalopathy: Code(s): G93.40 - Encephalopathy, unspecified Status: Acute (10) CAD (coronary artery disease): Qualifiers: Coronary Disease-Associated Artery/Lesion type: [place] artery [place] vs. transplanted heart: [place] heart Associated angina: angina presence unspecified Qualified Code(s): I25.10 - Atherosclerotic heart disease of [place] coronary artery without angina pectoris Code(s): I25.10 - Atherosclerotic heart disease of [place] coronary artery without angina pectoris Status: Acute (11) History of 2019 novel coronavirus disease (COVID-19): Code(s): Z86.19 - Personal history of other infectious and parasitic diseases Status: Acute (12) Paroxysmal atrial fibrillation: Code(s): I48.0 - Paroxysmal atrial fibrillation Status: Acute Subjective Date/time seen: 11/26/20 17:52 Interval history: Admitted 11/23 for uncontrolled dyspnea, restlessness. 11/26: Comfortable on morhpine infusion. Continues febrile. Review of Systems Review of Systems: ROS unobtainable: Yes unobtainable due to medical condition Exam Narrative: Exam Narrative: SKIN: Dressings over coccyx, heels HEENT: PERRL but miotic, sclerae nonicteric, pharyngeal mucosa pink and dry NECK: No JVD CHEST: Coarse crackles throughout. Normal effort. HEART: NL S1/S2, regular, tachycardic, no murmur ABDOMEN: BS hypoactive, soft, nontender, no mass, no bruits EXTREMITIES: No cyanosis, edema. NEUROLOGIC: CN intact and sym
[2020-11-26 20:00] VITALS: BP 89/56; PULSE 114; RESP 14; TEMP 36.2; O2SAT 96; O2SAT 99
[2020-11-26 21:01] VITALS: PULSE 116; O2SAT 95
[2020-11-27] MEDS: GLYCOPYRROLATE INJ (*SP) 0.2 MG/ML VIAL 0.1 MG IV PUSH ×4 (05:54→21:04)
[2020-11-27 13:00] VITALS: BP 102/57; PULSE 122; RESP 16; TEMP 37.5; O2SAT 98
[2020-11-27 13:03] LABS: Glucose Point of Care 89 (65-105)
[2020-11-27] MEDS: MORPHINE SULFATE INJ (*CRX) 50 MG in SODIUM CHLORIDE 0.9% IV 95 ML IV CONT (14:49)
[2020-11-27] MEDS: SODIUM CHLORIDE 0.9% IV 100 ML (15:18)
--- NOTE | 2020-11-27 18:53 | PM.IMPN ---
Progress Note: A&P Assessment and Plan (1) Palliative care by specialist: Code(s): Z51.5 - Encounter for palliative care Status: Acute Assessment and Plan: Meets GIP criteria due to uncontrolled dyspnea caused by choking and uncontrolled pain due to stage 4 sacral decubitus Morphine infusion 1mg/hr with bolus of 2mg q 2hr prn Temp addressed with acetaminophen and cold packs Remainder of palliative regimen as ordered (2) Pneumonia: Qualifiers: Laterality: unspecified laterality Lung location: unspecified part of lung Pneumonia type: due to unspecified organism Qualified Code(s): J18.9 - Pneumonia, unspecified organism Code(s): J18.9 - Pneumonia, unspecified organism Status: Acute (3) Anemia: Qualifiers: Anemia type: unspecified type Qualified Code(s): D64.9 - Anemia, unspecified Code(s): D64.9 - Anemia, unspecified Status: Acute (4) CHF (congestive heart failure): Qualifiers: Heart failure chronicity: chronic Heart failure type: unspecified Qualified Code(s): I50.9 - Heart failure, unspecified Code(s): I50.9 - Heart failure, unspecified Status: Chronic (5) Urinary tract infection: Qualifiers: Encounter type: initial encounter Indwelling urinary catheter type: unspecified Urinary tract infection type: catheter-associated UTI Qualified Code(s): T83.511A - Infection and inflammatory reaction due to indwelling urethral catheter, initial encounter; N39.0 - Urinary tract infection, site not specified Code(s): N39.0 - Urinary tract infection, site not specified Status: Acute (6) Decubitus ulcer of sacral region, stage 4: Code(s): L89.154 - Pressure ulcer of sacral region, stage 4 Status: Chronic (7) Heel ulcer: Qualifiers: Laterality: unspecified laterality Non-pressure ulcer stage: unspecified non-pressure ulcer stage Qualified Code(s): L97.409 - Non-pressure chronic ulcer of unspecified heel and midfoot with unspecified severity Code(s): L97.409 - Non-pressure chronic ulcer of unspecified heel and midfoot with unspecified severity Status: Acute (8) Sepsis: Qualifiers: Sepsis type: sepsis due to unspecified organism Sepsis acute organ dysfunction status: unspecified Qualified Code(s): A41.9 - Sepsis, unspecified organism Code(s): A41.9 - Sepsis, unspecified organism Status: Acute (9) Encephalopathy: Code(s): G93.40 - Encephalopathy, unspecified Status: Acute (10) CAD (coronary artery disease): Qualifiers: Coronary Disease-Associated Artery/Lesion type: [place] artery [place] vs. transplanted heart: [place] heart Associated angina: angina presence unspecified Qualified Code(s): I25.10 - Atherosclerotic heart disease of [place] coronary artery without angina pectoris Code(s): I25.10 - Atherosclerotic heart disease of [place] coronary artery without angina pectoris Status: Acute (11) History of 2019 novel coronavirus disease (COVID-19): Code(s): Z86.19 - Personal history of other infectious and parasitic diseases Status: Acute (12) Paroxysmal atrial fibrillation: Code(s): I48.0 - Paroxysmal atrial fibrillation Status: Acute Subjective Date/time seen: 11/27/20 18:53 Interval history: Admitted 11/23 for uncontrolled dyspnea, restlessness. 11/27: Comfortable on morphine infusion. Review of Systems Review of Systems: ROS unobtainable: Yes unobtainable due to medical condition Exam Narrative: Exam Narrative: SKIN: Dressings over coccyx, heels HEENT: PERRL but miotic, sclerae nonicteric, pharyngeal mucosa pink and dry NECK: No JVD CHEST: Coarse crackles throughout. Normal effort. HEART: NL S1/S2, regular, tachycardic, no murmur ABDOMEN: BS hypoactive, soft, nontender, no mass, no bruits EXTREMITIES: No cyanosis, edema. NEUROLOGIC: CN intact and symmetric to inspectio
[2020-11-27 20:00] VITALS: O2SAT 92
[2020-11-27] MEDS: MORPHINE SULFATE (*CRX) 2 MG/ML INJ IV PUSH (21:04)
[2020-11-27 22:05] VITALS: BP 89/58; PULSE 129; RESP 24; TEMP 37.3; O2SAT 95
[2020-11-28] MEDS: MORPHINE SULFATE (*CRX) 2 MG/ML INJ IV PUSH ×2 (00:24→06:33)
[2020-11-28] MEDS: GLYCOPYRROLATE INJ (*SP) 0.2 MG/ML VIAL 0.1 MG IV PUSH (06:33)
[2020-11-28 08:00] VITALS: BP 63/42; PULSE 120; RESP 32; TEMP 38.1; O2SAT 96
--- NOTE | 2020-12-02 13:51 | P.DN_ITS ---
Discharge Sum: Prov Provider Primary care physician: Arthur Quezada, Admitting provider: Anthony Estrada MD Discharge Sum: Diag Contributing Factors (1) Pneumonia: (2) Anemia: (3) CHF (congestive heart failure): (4) Urinary tract infection: (5) Decubitus ulcer of sacral region, stage 4: (6) Heel ulcer: (7) Sepsis: (8) Encephalopathy: (9) CAD (coronary artery disease): (10) History of 2019 novel coronavirus disease (COVID-19): (11) Paroxysmal atrial fibrillation: Discharge Sum: Summary Date and Time Date of admission: 11/23/20 12:00 Summary Details: Saad Yarbrough is a 75 year old male intermediate resident who was admitted to acute care due to altered mental status. CT of the brain was unremarkable. He grew MRSA from his stage IV presacral decubitus. Urinalysis with abnormal with Mala albicans, similar to last admission. Chest x-ray revealed pulmonary infiltrates in the mid and lower lung zones bilaterally. He was treated initially with Zithromax and Rocephin. This was switched to vancomycin and Zosyn. He was unable to swallow and choking on his secretions. Because he failed to improve and because of his poor functional status overall his family opted for comfort care only. Admitted to inpatient hospice service. Medications titrated to comfort. Patient peacefully. Additional Data Attending physician: Anthony Estrada MD
== END 2020-11-28 10:25 | disposition expired | DRG 951 ==
PROVIDERS: Admitting Provider Internal Medicine; PCP Internal Medicine; Visit Provider Internal Medicine
DX: Z51.5 Encounter for palliative care (principal); A41.9 Sepsis, unspecified organism; L89.154 Pressure ulcer of sacral region, stage 4; J18.9 Pneumonia, unspecified organism; T83.511A Infection and inflammatory reaction due to indwelling urethral catheter, initial encounter; N39.0 Urinary tract infection, site not specified; G93.40 Encephalopathy, unspecified; L97.409 Non-pressure chronic ulcer of unspecified heel and midfoot with unspecified severity; I25.10 Atherosclerotic heart disease of native coronary artery without angina pectoris; I48.0 Paroxysmal atrial fibrillation; I50.9 Heart failure, unspecified; D64.9 Anemia, unspecified; Z66 Do not resuscitate; Z86.16 Personal history of COVID-19; Z86.14 Personal history of Methicillin resistant Staphylococcus aureus infection; Z87.891 Personal history of nicotine dependence; Z95.5 Presence of coronary angioplasty implant and graft
CPT/HCPCS: 82948; A9270; J2060; J2270